=== PATIENT | male | born 1935 | race Caucasian/White ===

== ENCOUNTER → 2016-09-17 | Outpatient (CLI) | payer MEDICARE, OTHER ==
[2016-09-17 14:36] LABS: ALT 24 U/L (21-72); AST 27 U/L (17-59); Blood Urea Nitrogen 25 mg/dL (9-20); Non-African American GFR(MDRD) 55 (>60 ml/min/1.73 sqM)
== END ==
LOC: LABWHC1 13:48
PROVIDERS: ATTEND Podiatrist
DX: M10.9 Gout, unspecified (principal)
CPT/HCPCS: 36415; 82565; 84450; 84460; 84520; 84550

== ENCOUNTER 2016-10-03 21:01 | Emergency (ER) | payer MEDICARE, OTHER ==
[2016-10-03 21:24] VITALS: RESP 20
--- NOTE | 2016-10-03 21:39 | ED ---
Extremity Problem HPI - General Chief complaint: Extremity Problem,Nontraumatic Stated complaint: Leg Swollen/hx/congest heart failure Time Seen by Provider: 10/03/16 21:35 Source: patient Mode of arrival: wheelchair Limitations: no limitations - History of Present Illness Initial comments: This patient is a 81-year-old man who presents to be evaluated for left leg swelling that has been going on since Tuesday morning. He tells me that in contrast to the triage note this is mainly just the left leg. He did have an episode of bilateral leg swelling last September and was told that he had some congestive heart failure. The patient also notes that he has gained around 7 pounds over the course the past few days. He is denying other symptoms, including no real leg pain. No dyspnea or cough. No chest pain. Patient denies fever or chills, change in bowel movements or urination. MD Complaint: extremity swelling Onset/Timin -: days(s) Location: left, lower extremity History of Same: Yes Consistency: constant Improves with: nothing Worsens with: nothing - Related Data Home Medications Medication Instructions Recorded Confirmed Omeprazole [PriLOSEC] 20 mg PO AC-BRKFST 06/11/14 10/03/16 Simvastatin [Zocor] 40 mg PO HS 06/11/14 10/03/16 Aspirin EC [Ecotrin Low Dose] 81 mg PO DAILY 10/12/15 10/03/16 Cholecalciferol [Vitamin D3] 400 unit PO DAILY 10/12/15 10/03/16 Dulaglutide [Trulicity] 0.75 mg SQ WEEKLY 10/12/15 10/03/16 Hydrocodone/Acetaminophen [[place]one [place] 1 tab PO Q8H PRN 10/12/15 10/03/16 7.5-325] Insulin Degludec [Tresiba 30 unit SQ DAILY 10/12/15 10/03/16 Flextouch U-100] Allopurinol 300 mg PO DAILY 10/13/15 10/03/16 Levothyroxine Sodium [Synthroid] 50 mcg PO DAILY 10/13/15 10/03/16 Previous Rx's Medication Instructions Recorded Furosemide [Lasix] 40 mg PO DAILY #30 tab 10/15/15 Ipratropium-Albuterol Nebulize 3 ml INHALATION RT-QID #120 10/15/15 [Duoneb 0.5 mg-3 mg/3 ml Soln] ampul.neb Metoprolol Tartrate [Lopressor] 50 mg PO DAILY #30 tab 10/15/15 Allergies Allergy/AdvReac Type Severity Reaction Status Date / Time No Known Allergies Allergy Verified 10/03/16 21:24 Review of Systems ROS Statement: Those systems with pertinent positive or pertinent negative responses have been documented in the HPI. ROS Other: All systems not noted in ROS Statement are negative. Constitutional: Denies: fever, chills, weakness Respiratory: Denies: cough, dyspnea Cardiovascular: Reports: edema. Denies: chest pain, palpitations, orthopnea, syncope Gastrointestinal: Denies: abdominal pain, nausea, vomiting, diarrhea, melena, hematochezia Genitourinary: Denies: dysuria, hematuria Skin: Denies: rash Neurological: Denies: headache, weakness, numbness Past Medical History Past Medical History: Diabetes Mellitus, GERD/Reflux, Hyperlipidemia, Hypertension, Myocardial Infarction (VT) Additional Past Medical History / Comment(s): NEUROPATHY FEET, [place] 2015 Last Myocardial Infarction Date:: 1980 History of Any Multi-Drug Resistant Organisms: None Reported Past Surgical History: No Surgical Hx Reported Additional Past Surgical History / Comment(s): EGD, COLONOSCOPY Past Anesthesia/Blood Transfusion Reactions: No Reported Reaction Past Psychological History: No Psychological Hx Reported Smoking Status: Former smoker Past Alcohol Use History: None Reported Past Drug Use History: None Reported - Past Family History Father Family Medical History: No Reported History, Unable to Obtain Mother Family Medical History: No Reported History, Unable to Obtain General Exam Limitations: no limitations General appearance: alert, in no apparent distress Head exam: Present: atraumatic Eye exam: Present: normal appearance. Absent: scleral icterus, conjunctival injection ENT exam: Present: normal oropharynx Neck exam: Present: normal inspection Respiratory exam: Present: normal lung sounds bilaterally, rales (Few crackles at the bases bilaterally). Absent: respiratory distress, wheezes, rhonchi, stridor, accessory muscle use, decreased breath sounds, prolonged expiratory Cardiovascular Exam: Present: regular rate, normal rhythm, normal heart sounds. Absent: systolic murmur, diastolic murmur, rubs, gallop GI/Abdominal exam: Present: soft. Absent: distended, tenderness, guarding, rebound, mass Extremities exam: Present: normal inspection, normal capillary refill. Absent: pedal edema, calf tenderness Back exam: Present: normal inspection. Absent: CVA tenderness (R), CVA tenderness (L) Neurological exam: Present: alert Skin exam: Present: warm, dry, intact, normal color. Absent: rash Course Vital Signs 10/03/16 10/03/16 21:19 22:03 Temperature 99.4 F Pulse Rate 72 69 Respiratory 20 20 Rate Blood Pressure 144/65 133/69 O2 Sat by Pulse 93 L 96 Oximetry Medical Decision Making - Lab Data Result diagrams: 10/03/16 21:30 10/03/16 21:30 Lab Results 10/03/16 10/03/16 10/03/16 Range/Units 21:30 21:30 21:30 WBC 7.9 (3.8-10.6) k/uL RBC 5.14 (4.30-5.90) m/uL Hgb 15.2 (13.0-17.5) gm/dL Hct 46.2 (39.0-53.0) % MCV 90.0 (80.0-100.0) fL MCH 29.5 (25.0-35.0) pg MCHC 32.8 (31.0-37.0) g/dL RDW 16.0 H (11.5-15.5) % Plt Count 182 (150-450) k/uL Neutrophils % 65 % Lymphocytes % 22 % Monocytes % 6 % Eosinophils % 4 % Basophils % 1 % Neutrophils # 5.1 (1.3-7.7) k/uL Lymphocytes # 1.8 (1.0-4.8) k/uL Monocytes # 0.5 (0-1.0) k/uL Eosinophils # 0.3 (0-0.7) k/uL Basophils # 0.1 (0-0.2) k/uL D-Dimer 0.34 (<0.60) mg/L FEU Sodium 138 (137-145) mmol/L Potassium 4.5 (3.5-5.1) mmol/L Chloride 99 (98-107) mmol/L Carbon Dioxide 24 (22-30) mmol/L Anion Gap 15 mmol/L BUN 32 H (9-20) mg/dL Creatinine 1.30 H (0.66-1.25) mg/dL Est GFR (MDRD) Af Amer >60 (>60 ml/min/1.73 sqM) Est GFR (MDRD) Non-Af 53 (>60 ml/min/1.73 sqM) Glucose 257 H (74-99) mg/dL Calcium 9.4 (8.4-10.2) mg/dL Total Bilirubin 0.8 (0.2-1.3) mg/dL AST 35 (17-59) U/L ALT 30 (21-72) U/L Alkaline Phosphatase 102 (38-126) U/L Troponin I (0.000-0.034) ng/mL NT-Pro-B Natriuret Pep pg/mL Total Protein 7.7 (6.3-8.2) g/dL Albumin 3.9 (3.5-5.0) g/dL 10/03/16 10/03/16 Range/Units 21:30 21:30 WBC (3.8-10.6) k/uL RBC (4.30-5.90) m/uL Hgb (13.0-17.5) gm/dL Hct (39.0-53.0) % MCV (80.0-100.0) fL MCH (25.0-35.0) pg MCHC (31.0-37.0) g/dL RDW (11.5-15.5) % Plt Count (150-450) k/uL Neutrophils % % Lymphocytes % % Monocytes % % Eosinophils % % Basophils % % Neutrophils # (1.3-7.7) k/uL Lymphocytes # (1.0-4.8) k/uL Monocytes # (0-1.0) k/uL Eosinophils # (0-0.7) k/uL Basophils # (0-0.2) k/uL D-Dimer (<0.60) mg/L FEU Sodium (137-145) mmol/L Potassium (3.5-5.1) mmol/L Chloride (98-107) mmol/L Carbon Dioxide (22-30) mmol/L Anion Gap mmol/L BUN (9-20) mg/dL Creatinine (0.66-1.25) mg/dL Est GFR (MDRD) Af Amer (>60 ml/min/1.73 sqM) Est GFR (MDRD) Non-Af (>60 ml/min/1.73 sqM) Glucose (74-99) mg/dL Calcium (8.4-10.2) mg/dL Total Bilirubin (0.2-1.3) mg/dL AST (17-59) U/L ALT (21-72) U/L Alkaline Phosphatase (38-126) U/L Troponin I <0.012 (0.000-0.034) ng/mL NT-Pro-B Natriuret Pep 142 pg/mL Total Protein (6.3-8.2) g/dL Albumin (3.5-5.0) g/dL - EKG Data -: EKG Interpreted by Pa EKG shows normal: sinus rhythm (With PVC. Rate 73 bpm), axis (Normal), intervals (Normal), QRS complexes (Low voltage QRS complex), ST-T waves Rate: normal Interpretation: other (Possible old inferior infarct) Disposition Clinical Impression: Diabetes, Edema Disposition: HOME SELF-CARE Condition: Fair Instructions: Edema (ED) Additional Instructions: As we discussed, follow with your physician to ensure that the symptoms are improving. If you are worsening in anyway or if new symptoms develop return to the emergency room for reevaluation. Increase your furosemide to twice per day for the next 4 days. Referrals: Miguel Parra MD [Primary Care Provider] - 1-2 days
--- NOTE | 2016-10-03 21:58 | XR ---
EXAMINATION TYPE: XR chest 1V portable DATE OF EXAM: 10/03/2016 9:55 PM COMPARISON: 10/13/2015 INDICATION: Dyspnea TECHNIQUE: Single frontal view of the chest is obtained. FINDINGS: The heart size is normal. The pulmonary vasculature is normal. Mild left basilar infiltrate is present. Correlate for atelectasis. IMPRESSION: 1. Mild plate atelectasis left base.
[2016-10-03 21:59] LABS: Basophils # (A) 0.1 k/uL (0-0.2); Basophils % (A) 1 %; CH 29.5; CHCM 32.9; Eosinophils # (A) 0.3 k/uL (0-0.7); Eosinophils % (A) 4 %; HCT 46.2 % (39.0-53.0); HDW 2.83; HGB 15.2 gm/dL (13.0-17.5); Luc # (Auto) 0.16; Luc % (Auto) 2; Lymphocytes # (A) 1.8 k/uL (1.0-4.8); Lymphocytes % (A) 22 %; MCH 29.5 pg (25.0-35.0); MCHC 32.8 g/dL (31.0-37.0); Mean Platelet Volume 8.5; Monocytes # (A) 0.5 k/uL (0-1.0); Monocytes % (A) 6 %; Neutrophils # (A) 5.1 k/uL (1.3-7.7); Neutrophils % (A) 65 %; RBC 5.14 m/uL (4.30-5.90); WBC 7.9 k/uL (3.8-10.6)
[2016-10-03 22:13] LABS: Anion Gap 15 mmol/L; Calcium 9.4 mg/dL (8.4-10.2); Carbon Dioxide 24 mmol/L (22-30); Chloride 99 mmol/L (98-107); Glucose 257 mg/dL (74-99); Non-African American GFR(MDRD) 53 (>60 ml/min/1.73 sqM); Sodium 138 mmol/L (137-145); Total Bilirubin 0.8 mg/dL (0.2-1.3); Total Protein 7.7 g/dL (6.3-8.2)
[2016-10-03 22:20] LABS: Potassium 4.5 mmol/L (3.5-5.1)
[2016-10-03 22:21] LABS: ALT 30 U/L (21-72); AST 35 U/L (17-59); Alkaline Phosphatase 102 U/L (38-126); Blood Urea Nitrogen 32 mg/dL (9-20)
--- NOTE | 2016-10-03 22:38 | US ---
EXAM: US Duplex Left Lower Extremity Veins. CLINICAL HISTORY: R/O DVT. CHF, Left Leg swelling, no known prior DVT TECHNIQUE: The lower extremity deep venous system is examined utilizing real time linear array sonography with graded compression, Doppler sonography and color-flow sonography. Vessels imaged: External Iliac Vein (EIV), Common Femoral Vein, Deep Femoral Vein, Greater Saphenous Vein *, Femoral Vein, Popliteal Vein, Small Saphenous Vein *,Proximal Calf Veins, (* superficial vessels). COMPARISON: NONE FINDINGS: Deep veins: Unremarkable. Normal compression is demonstrated from the common femoral to the popliteal vein. There is normal response to augmentation. Superficial veins: Unremarkable as visualized. Soft tissues: No acute findings. IMPRESSION: Negative for left lower extremity DVT. Grayscale, color Doppler, spectral Doppler imaging performed of the deep veins of the lower extremities. There is normal flow, compressibility, vascular waveforms bilaterally.
[2016-10-03] MEDS ORDERED: INSULIN REGULAR 100 UNIT/ML VIAL SQ STA (23:06)
[2016-10-03 23:20] VITALS: BP 145/56; PULSE 76
[2016-10-03 23:35] VITALS: TEMP 98.1
== END 2016-10-03 23:35 | disposition home or self-care (01) ==
LOC: EC 21:01
DX: R60.0 Localized edema (principal); E11.9 Type 2 diabetes mellitus without complications; K21.9 Gastro-esophageal reflux disease without esophagitis; E78.5 Hyperlipidemia, unspecified; I10 Essential (primary) hypertension; I25.2 Old myocardial infarction; Z87.891 Personal history of nicotine dependence; Z79.82 Long term (current) use of aspirin; Z79.899 Other long term (current) drug therapy; Z79.4 Long term (current) use of insulin
CPT/HCPCS: 36415; 71010; 80053; 83880; 84484; 85025; 85379; 93005; 99284

== ENCOUNTER → 2016-10-22 | Outpatient (CLI) | payer MEDICARE, OTHER ==
[2016-10-22 15:24] LABS: ALT 22 U/L (21-72); AST 33 U/L (17-59); Blood Urea Nitrogen 26 mg/dL (9-20); Non-African American GFR(MDRD) 56 (>60 ml/min/1.73 sqM); Uric Acid 7.7 mg/dL (3.5-8.5)
== END | disposition home or self-care (01) ==
LOC: LABWHC1 14:49
PROVIDERS: ATTEND Podiatrist
DX: M10.9 Gout, unspecified (principal)
CPT/HCPCS: 36415; 82565; 84450; 84460; 84520; 84550

== ENCOUNTER → 2017-06-17 | Outpatient (CLI) | payer MEDICARE, OTHER ==
[2017-06-18 15:04] LABS: Uric Acid 9.6 mg/dL (3.5-8.5)
== END | disposition home or self-care (01) ==
LOC: LABWHC1 10:57
PROVIDERS: ATTEND Podiatrist
DX: M10.9 Gout, unspecified (principal)
CPT/HCPCS: 36415; 82565; 84450; 84460; 84520; 84550

== ENCOUNTER → 2017-08-12 | Outpatient (CLI) | payer MEDICARE, OTHER ==
--- NOTE | 2017-08-13 21:42 | XR ---
EXAMINATION TYPE: XR lumbar spine 2 or 3V DATE OF EXAM: 08/12/2017 COMPARISON: NONE HISTORY: 81-year-old male with radiculopathy, lower extremity pain TECHNIQUE: 3 views FINDINGS: Degenerated levoconvex curvature lumbar spine. Hypertrophic facet arthropathy mid to lower lumbar spi ne. There is grade 1 retrolisthesis at both L2-L3 and L3-L4. Vertebral body heights are preserved. Mi ld endplate spondylosis throughout. Mild aneurysm of upper abdominal aorta at 3.0 cm. There is fusiform aneurysm of the infrarenal abdomi nal aorta at 3.8 cm. Dense prostatic calcifications are present throughout. IMPRESSION: 1. Degenerated levoconvex scoliosis. 2. No vertebral compression collapse. 3. Hypertrophic facet arthropathy mid to lower lumbar spine with grade 1 retrolisthesis at both L2-L3 and L3-L4. 4. Mild degenerative disc disease throughout. 5. Note aneurysmal abdominal aorta with the greatest fusiform dilatation along the infrarenal segment at 3.8 cm.
== END | disposition home or self-care (01) ==
LOC: RADXRMAIN 16:03
PROVIDERS: ATTEND Podiatrist
DX: M51.16 Intervertebral disc disorders with radiculopathy, lumbar region (principal); M46.96 Unspecified inflammatory spondylopathy, lumbar region; M41.86 Other forms of scoliosis, lumbar region; M43.16 Spondylolisthesis, lumbar region
CPT/HCPCS: 72100

== ENCOUNTER 2017-08-15 07:47 | Day surgery (SDC) | payer MEDICARE, OTHER ==
[~2017-08-15 07:47] MED LIST: ALPRAZolam 0.25 MG TAB PO PRN; ASPIRIN 325 MG TAB PO STA; NITROGLYCERIN SL TABS 0.4 MG TAB SUBLINGUAL PRN; SODIUM CHLORIDE 0.9% 1,000 ML in EMPTY BAG 1 BAG IV ONE
[2017-08-15 08:47] LABS: Glucose,Whole Blood 152 mg/dL (75-99)
[2017-08-15 08:47] LABS: Basophils # (A) 0.1 k/uL (0-0.2); Basophils % (A) 1 %; Eosinophils # (A) 0.2 k/uL (0-0.7); Eosinophils % (A) 3 %; HCT 47.2 % (39.0-53.0); HGB 15.2 gm/dL (13.0-17.5); Lymphocytes # (A) 1.5 k/uL (1.0-4.8); Lymphocytes % (A) 22 %; MCH 28.6 pg (25.0-35.0); MCHC 32.2 g/dL (31.0-37.0); MCV 88.7 fL (80.0-100.0); Mean Platelet Volume 7.5; Monocytes # (A) 0.3 k/uL (0-1.0); Monocytes % (A) 5 %; Neutrophils # (A) 4.8 k/uL (1.3-7.7); Neutrophils % (A) 68 %; Platelet Count 228 k/uL (150-450); RBC 5.32 m/uL (4.30-5.90); RDW 15.4 % (11.5-15.5)
[2017-08-15] MEDS ORDERED: MIDAZOLAM 2 MG/2 ML VIAL IV ONE (13:05)
[2017-08-15] MEDS ORDERED: fentaNYL (PF) 50 MCG/ML 2 ML AMP IV ONE (13:05)
[2017-08-15] MEDS ORDERED: LIDOCAINE 2% INJ 20 MG/ML SQ ONE (13:11)
[2017-08-15] MEDS ORDERED: RX INFO: IV CONTRAST WAS GIVEN 1 EACH MISC MISCELLANE PRN (13:36)
[2017-08-15] MEDS ORDERED: ISOSORBIDE MONONITRATE ER 15 MG TAB PO STA (13:45)
[2017-08-15] MEDS ORDERED: SODIUM CHLORIDE 0.9% 1,000 ML IV SCH (13:45)
--- NOTE | 2017-08-15 13:45 | P.PCN ---
Date of Procedure: 08/15/17 Preoperative Diagnosis: Positive stress test, hypertension, hyperglycemia and diabetes Postoperative Diagnosis: Significant disease involving the mid circumflex Procedure(s) Performed: Left heart catheterization without left ventriculography Description of Procedure: HISTORY: This is a 81-year-old gentleman with history of hypertension, hypercholesterolemia, diabetes mellitus and diastolic congestive heart failure who recently had a stress test which showed ischemia involving the apex and lateral wall. Patient is advised to have a cardiac catheter placed for definite diagnosis. Patient and family were explained the risks and benefits of the procedure. CONSENT:I have discussed the risks, benefits and alternative therapies for the above-mentioned procedure and for both sedation/analgesia as well as necessary blood product administration, if indicated, as they pertain to this patient. The patient has indicated understanding and acceptance of the risks and procedures discussed. PROCEDURE: Patient was brought to the lab in a fasting state. Patient was given some IV sedation. The right groin is infiltrated with lidocaine and right femoral artery was entered using Seldinger technique. A 6-Belizean catheter was left in place and selective coronary arteriography was performed. Patient tolerated the procedure well.. No immediate complications were noted and patient was transferred to [facility] in a stable condition: Manual compression was applied for hemostasis. Conscious Sedation: Versed 1mg Fentanyl 25 g Duration 20minutes HEMODYNAMICS: The aortic pressure is 138/78. Left ventricular end-diastolic pressure is 6-10. There was no gradient across the aortic valve SELECTIVE CORONARY ARTERIOGRAPHY: LEFT MAIN: Normal length and patent THE LEFT ANTERIOR DESCENDING CORONARY ARTERY:. This is a fair in caliber with mild calcification in the proximal portion. The LAD and its branches are free of occlusive disease THE LEFT CIRCUMFLEX AND IS CORONARY ARTERY: This is a dominant vessel giving rise to good-sized OM branch. The proximal circumflex has mild to moderate disease with about 30-40% lesion. The mid circumflex before the OM branch has a tight stenosis with with about 80% stenosis THE RIGHT CORONARY ARTERY: Small and nondominant. Mild disease in the proximal portion LEFT VENTRICULOGRAPHY: Not done FINAL IMPRESSION:. Significant lesion involving the mid circumflex and mild to moderate disease in the proximal circumflex. Mild disease in the proximal RCA PLAN:. Patient has received significant of contrast. We will right atrium and the possibility proceed with stent placement of the circumflex marginal tomorrow PROGNOSIS:. Fair
[2017-08-15] MEDS ORDERED: IODIXANOL 320 MG/ML 100 ML INTRAARTER ONE (13:47)
[2017-08-15] MEDS ORDERED: IPRATROPIUM-ALBUTEROL 3 ML NEB INHALATION PRN (13:49)
[2017-08-15] MEDS: ATORVASTATIN 20 MG TAB PO SCH (21:29)
[2017-08-15] MEDS: ALPRAZolam 0.5 MG TAB PO PRN (21:29)
[2017-08-16] MEDS: HYDROcodone/APAP 7.5-325MG 1 EACH TAB PO PRN ×2 (03:35→13:41)
[2017-08-16 06:20] LABS: Glucose,Whole Blood 199 mg/dL (75-99)
[2017-08-16 06:58] LABS: Calcium 9.2 mg/dL (8.4-10.2); Potassium 4.4 mmol/L (3.5-5.1)
[2017-08-16] MEDS: LEVOTHYROXINE 50 MCG TAB PO SCH (07:20)
[2017-08-16] MEDS: ALLOPURINOL 300 MG TAB PO SCH (07:21)
[2017-08-16] MEDS: PANTOPRAZOLE 40 MG TABLET PO SCH (07:21)
[2017-08-16] MEDS: CHOLECALCIFEROL 400 UNIT TAB PO SCH (07:21)
[2017-08-16] MEDS ORDERED: [UNRECOGNIZED DRUG - OTHER] PO SCH (09:00)
[2017-08-16] MEDS ORDERED: FUROSEMIDE 40 MG TAB PO SCH (09:00)
[2017-08-16] MEDS ORDERED: ASPIRIN 81 MG PO SCH (09:00)
[2017-08-16] MEDS ORDERED: VERAPAMIL 2.5 MG/ML 2 ML AMP ONE (09:16)
[2017-08-16] MEDS ORDERED: LIDOCAINE 2% INJ 20 MG/ML (20 ML MDV) ONE (09:16)
[2017-08-16] MEDS ORDERED: MIDAZOLAM 2 MG/2 ML VIAL ONE (09:16)
[2017-08-16] MEDS ORDERED: MIDAZOLAM 2 MG/2 ML VIAL IVP ONE (10:25)
[2017-08-16] MEDS ORDERED: LIDOCAINE 2% INJ 20 MG/ML SQ ONE (10:33)
[2017-08-16] MEDS ORDERED: BIVALIRUDIN BOLUS 250 MG/50 ML IV ONE (10:35)
[2017-08-16] MEDS ORDERED: BIVALIRUDIN 250 MG in SODIUM CHLORIDE 0.9% 50 ML IV ONE (10:37)
[2017-08-16] MEDS ORDERED: IV FLUID CONTINUATION 1,000 ML IV ONE (10:37)
[2017-08-16] MEDS ORDERED: NITROGLYCERIN 1000MCG/10ML SYRINGE INTRACORON ONE (10:55)
[2017-08-16] MEDS ORDERED: CLOPIDOGREL 75 MG TAB ONE (11:00)
[2017-08-16] MEDS ORDERED: CLOPIDOGREL 75 MG TAB PO ONE (11:00)
[2017-08-16] MEDS ORDERED: IODIXANOL 320 MG/ML 100 ML INTRAARTER ONE (11:01)
[2017-08-16] MEDS ORDERED: MAG HYDROX/AL HYDROX/SIMETH 30 ML CUP PO PRN (11:14)
[2017-08-16] MEDS ORDERED: RX INFO: IV CONTRAST WAS GIVEN 1 EACH MISC MISCELLANE PRN (11:14)
[2017-08-16] MEDS ORDERED: ZOLPIDEM 5 MG TAB PO PRN (11:14)
[2017-08-16] MEDS ORDERED: ATROPINE SULFATE 0.1 MG/ML 10ML SYRINGE IV PRN (11:14)
[2017-08-16] MEDS ORDERED: NITROGLYCERIN SL TABS 0.4 MG TAB SUBLINGUAL PRN (11:14)
[2017-08-16] MEDS ORDERED: SODIUM CHLORIDE 0.9% 1,000 ML IV SCH (11:15)
[2017-08-16 11:49] LABS: Glucose,Whole Blood 165 mg/dL (75-99)
[2017-08-16] MEDS: INSULIN ASPART 100 UNIT/ML 1 ML 10 ML VIAL SQ SCH ×4 (12:05→20:51)
[2017-08-16] MEDS: INSULIN DETEMIR 100 UNIT/ML 10 ML VIAL SQ SCH (12:08)
--- NOTE | 2017-08-16 12:18 | LTR ---
August 15, 2017 Re: Miguel Grace Dear Dr. Parra: MrJuan Grace underwent a heart catheterization by Dr. Zamudio yesterday and that revealed severe disease involving the left circumflex coronary artery. He was brought today and underwent successful balloon angioplasty and stenting of the left circumflex with a good angiographic results and without any complication. Thank you for allowing us to participate in his care and please do not hesitate to call if you have any question or concern. Sincerely, Daniel Petty MD MMSAMUELL / IJN: [id number] /
[2017-08-16 14:52] LABS: Calcium 8.9 mg/dL (8.4-10.2); Potassium 3.8 mmol/L (3.5-5.1)
[2017-08-16 15:07] VITALS: BMI 38.5
[2017-08-16 16:47] LABS: Glucose,Whole Blood 147 mg/dL (75-99)
[2017-08-16 19:46] VITALS: RESP 18
[2017-08-16 20:44] LABS: Glucose,Whole Blood 125 mg/dL (75-99)
[2017-08-16] MEDS: ATORVASTATIN 20 MG TAB PO SCH (21:41)
[2017-08-16] MEDS: ALPRAZolam 0.5 MG TAB PO PRN (21:42)
[2017-08-17 06:19] LABS: Glucose,Whole Blood 155 mg/dL (75-99)
[2017-08-17] MEDS: LEVOTHYROXINE 50 MCG TAB PO SCH (06:51)
[2017-08-17] MEDS: PANTOPRAZOLE 40 MG TABLET PO SCH (06:51)
[2017-08-17] MEDS: INSULIN ASPART 100 UNIT/ML 1 ML 10 ML VIAL SQ SCH (06:54)
[2017-08-17] MEDS: ALLOPURINOL 300 MG TAB PO SCH (08:15)
[2017-08-17] MEDS: INSULIN DETEMIR 100 UNIT/ML 10 ML VIAL SQ SCH (08:15)
[2017-08-17] MEDS: CHOLECALCIFEROL 400 UNIT TAB PO SCH (08:15)
[2017-08-17] MEDS: HYDROcodone/APAP 7.5-325MG 1 EACH TAB PO PRN (08:15)
[2017-08-17] MEDS ORDERED: ASPIRIN 325 MG TAB PO SCH (09:00)
[2017-08-17] MEDS ORDERED: CLOPIDOGREL 75 MG TAB PO SCH (11:15)
--- NOTE | 2017-08-17 11:30 | P.DS ---
Providers Date of admission: 08/15/2017 Attending physician: Marielle Zamudio Consults: 08/16/17 11:14 Consult Physician Routine Consulting Provider: [facility] Reason/Comments: Post Interventional patient Do you want consulting provider notified?: Already Contacted Primary care physician: [facility] Course: This is a pleasant 81-year-old woman with history of hypertension, hyper- cholesterolemia, diabetes mellitus and diastolic congestive heart failure. He recently underwent stress test which showed ischemia involving the apex and lateral wall. He was then advised to undergo cardiac catheterization for definitive diagnosis. Cardiac catheterization revealed significant lesion involving the mid circumflex and mild to moderate disease in the proximal circumflex with mild disease in the proximal RCA. He subsequently underwent successful balloon angioplasty and stenting of the left circumflex with a good angiographic result and without any complication. He is doing well. Vital signs are stable. Lung sounds are clear. Heart sounds regular S1 and S2 without significant murmur and no gallop or extra sounds. Right femoral puncture site with ecchymosis, soft with no evidence of hematoma. Patient will be discharged home today in follow-up in the office with Dr. Zamudio in one week. Plan - Discharge Summary Discharge Rx Participant: Yes New Discharge Prescriptions: New Aspirin 325 mg PO DAILY tab Clopidogrel [Plavix] 75 mg PO DAILY #90 tab Nitroglycerin Sl Tabs [Nitrostat] 0.4 mg SUBLINGUAL Q5M PRN #25 tab PRN Reason: Chest Pain Continue Simvastatin [Zocor] 40 mg PO HS Omeprazole [PriLOSEC] 20 mg PO AC-BRKFST Hydrocodone/Acetaminophen [[place] 7.5-325] 1 tab PO Q8H PRN PRN Reason: Pain Insulin Degludec [Tresiba Flextouch U-100] 30 unit SQ QAM Cholecalciferol [Vitamin D3] 400 unit PO DAILY Levothyroxine Sodium [Synthroid] 50 mcg PO DAILY Allopurinol 300 mg PO DAILY Furosemide [Lasix] 40 mg PO DAILY #30 tab Ipratropium-Albuterol Nebulize [Duoneb 0.5 mg-3 mg/3 ml Soln] 3 ml INHALATION QID PRN PRN Reason: Shortness Of Breath Neuro B Vitamin 80 mg PO DAILY Discontinued Aspirin EC [Ecotrin Low Dose] 81 mg PO DAILY Discharge Medication List Omeprazole [PriLOSEC] 20 mg PO AC-BRKFST 06/11/14 [History] Simvastatin [Zocor] 40 mg PO HS 06/11/14 [History] Cholecalciferol [Vitamin D3] 400 unit PO DAILY 10/12/15 [History] Hydrocodone/Acetaminophen [[place] 7.5-325] 1 tab PO Q8H PRN 10/12/15 [History] Insulin Degludec [Tresiba Flextouch U-100] 30 unit SQ QAM 10/12/15 [History] Allopurinol 300 mg PO DAILY 10/13/15 [History] Levothyroxine Sodium [Synthroid] 50 mcg PO DAILY 10/13/15 [History] Furosemide [Lasix] 40 mg PO DAILY #30 tab 10/15/15 [Rx] Ipratropium-Albuterol Nebulize [Duoneb 0.5 mg-3 mg/3 ml Soln] 3 ml INHALATION QID PRN 08/10/17 [History] Neuro B Vitamin 80 mg PO DAILY 08/10/17 [History] Aspirin 325 mg PO DAILY tab 08/17/17 [Rx] Clopidogrel [Plavix] 75 mg PO DAILY #90 tab 08/17/17 [Rx] Nitroglycerin Sl Tabs [Nitrostat] 0.4 mg SUBLINGUAL Q5M PRN #25 tab 08/17/17 [Rx ] Follow up Appointment(s)/Referral(s): Marielle Zamudio MD [STAFF PHYSICIAN] - 08/25/17 3:30 pm Patient Instructions/Handouts: *Surgery [facility] - After Heart Catheterization - Sterile Products Processor Instructions, Heart Healthy Diet (DC), Coronary Intravascular Stent Placement (DC)
[2017-08-17 11:53] VITALS: BP 145/77; PULSE 94; TEMP 97.3
--- NOTE | 2017-08-18 21:23 | CONS ---
CONSULTATION DATE OF SERVICE: 08/15/2017 CHIEF COMPLAINT: Status post heart catheterization showing blockage in the mid to left circumflex. He has history of diabetes at home, diastolic heart failure, hypertension, dyslipidemia, obesity. Discussed with him, heart catheterization tomorrow to put the stent in his heart and possible discharge after that home. PAST MEDICAL HISTORY: Hypertension, diabetes mellitus, diastolic CHF, obesity. REVIEW OF SYSTEM: 30-point review of systems negative. Cardiovascular, S1-S2. Lungs clear. GI soft. Hematology negative Homans. Psych fair mood and affect. ASSESSMENT: 1. Coronary artery disease. Circumflex obstruction. Percutaneous transluminal coronary angiography will be done in the morning. 2. Hypertension. 3. Diabetes mellitus. Continue with Accu-Chek protocol and home medicines will be continued. MMODL / IJN: [id number] /
--- NOTE | 2017-09-09 11:01 | PTCA ---
PERCUTANEOUSTRANS CORORONARY ANGIOGRAPHY DATE OF SERVICE: 08/16/2017 PERFORMING PHYSICIAN: Daniel Petty MD, Meteorological Technician. PROCEDURE PERFORMED: Successful stenting of the mid left circumflex using 3.5 x 15 mm Xience drug-eluting stent with good angiographic results. INDICATION: This is a pleasant 81-year-old gentleman who sees Dr. Zamudio in the office as an outpatient who was experiencing chest discomfort and underwent myocardial perfusion imaging stress test and that revealed inferolateral ischemia. He underwent A heart catheterization by Dr. Zamudio yesterday and that revealed severe disease involving the mid left circumflex and intermediate disease involving the proximal left circumflex. In view of that, percutaneous coronary intervention was advised. APPROACH: Right common femoral artery. COMPLICATION: None. LEVEL OF SEDATION: Moderate with sedation length of 30 minutes. PROCEDURE DESCRIPTION: After obtaining an informed consent, the patient was brought to the Cardiac Rn Post Partum. The right common femoral artery was cannulated using micropuncture technique, the micropuncture wire passed easily, Then I placed a 6-Georgian sheath in the right common femoral artery subsequently. After that anticoagulation was initiated using Angiomax. After that, I did engage the left main using an XB 3.5 guide. The left circumflex was wired using a whisper wire. After that, I did PTCA ballooning using 3.0 mm balloon and subsequently I deployed 3.5 x 15 mm Xience drug-eluting stent where the stent was positioned under fluoroscopy guidance and deployed under 16 atmospheres for 30 seconds. The following angiogram showed good angiographic results. The procedure was completed without any complication. POSTPROCEDURE MANAGEMENT: 1. Dual anti-platelet therapy. 2. Risk factors modifications. 3. Follow up with the patient. MMODL / IJN: [id number] /
== END 2017-08-17 12:04 | disposition home or self-care (01) ==
LOC: CATHCVL 07:47 → 6SEL 13:45 → CATHCVL 08-17 12:04
PROVIDERS: ATTEND Internal Medicine Cardiovascular Disease
DX: I25.10 Atherosclerotic heart disease of native coronary artery without angina pectoris (principal); I25.84 Coronary atherosclerosis due to calcified coronary lesion; I11.0 Hypertensive heart disease with heart failure; I50.32 Chronic diastolic (congestive) heart failure; Z87.891 Personal history of nicotine dependence; E78.5 Hyperlipidemia, unspecified; Z82.49 Family history of ischemic heart disease and other diseases of the circulatory system; E11.9 Type 2 diabetes mellitus without complications; Z79.82 Long term (current) use of aspirin; Z79.899 Other long term (current) drug therapy
CPT/HCPCS: 93458; 80048; 82565; 85025; C9600; C1769 ×4; C1725; C1887; C1894 ×3; C1874; C1760; J2001 ×2; J2250 ×2; Q9967 ×2; J3010; J0583

== ENCOUNTER 2017-10-16 13:38 | Inpatient (IN) | payer MEDICARE, OTHER ==
[2017-10-16] MEDS ORDERED: SODIUM CHLORIDE 0.9% 1,000 ML IV STA (14:09)
[2017-10-16] MEDS ORDERED: PANTOPRAZOLE 40 MG/10 ML VIAL IVP STA (14:09)
--- NOTE | 2017-10-16 14:11 | ED ---
General Adult HPI - General Chief complaint: GI Bleed Stated complaint: Bloody stool Time Seen by Provider: 10/16/17 13:58 Source: patient, RN notes reviewed Mode of arrival: wheelchair Limitations: no limitations - History of Present Illness Initial comments: Patient is a pleasant 82-year-old male presenting to the emergency department with black stool. Onset was 2 days ago. Patient has had 3 episodes now. Patient states over the past week he has been more fatigued. Patient does admit to having some shortness of breath exertion. No history of similar symptoms previously. States there is some mild discomfort of his upper abdomen. - Related Data Home Medications Medication Instructions Recorded Confirmed Omeprazole [PriLOSEC] 20 mg PO AC-BRKFST 06/11/14 08/15/17 Simvastatin [Zocor] 40 mg PO HS 06/11/14 08/15/17 Cholecalciferol [Vitamin D3] 400 unit PO DAILY 10/12/15 08/15/17 Hydrocodone/Acetaminophen [[place] 1 tab PO Q8H PRN 10/12/15 08/15/17 7.5-325] Insulin Degludec [Tresiba 30 unit SQ QAM 10/12/15 08/15/17 Flextouch U-100] Allopurinol 300 mg PO DAILY 10/13/15 08/15/17 Levothyroxine Sodium [Synthroid] 50 mcg PO DAILY 10/13/15 08/15/17 Ipratropium-Albuterol Nebulize 3 ml INHALATION QID PRN 08/10/17 08/15/17 [Duoneb 0.5 mg-3 mg/3 ml Soln] Neuro B Vitamin 80 mg PO DAILY 08/10/17 08/15/17 Previous Rx's Medication Instructions Recorded Furosemide [Lasix] 40 mg PO DAILY #30 tab 10/15/15 Aspirin 325 mg PO DAILY tab 08/17/17 Clopidogrel [Plavix] 75 mg PO DAILY #90 tab 08/17/17 Nitroglycerin Sl Tabs [Nitrostat] 0.4 mg SUBLINGUAL Q5M PRN #25 tab 08/17/17 Allergies Allergy/AdvReac Type Severity Reaction Status Date / Time No Known Allergies Allergy Verified 10/16/17 13:53 Review of Systems ROS Statement: Those systems with pertinent positive or pertinent negative responses have been documented in the HPI. ROS Other: All systems not noted in ROS Statement are negative. Constitutional: Denies: fever Eyes: Denies: eye pain ENT: Denies: ear pain Respiratory: Reports: dyspnea (With exertion). Denies: cough Cardiovascular: Denies: chest pain Endocrine: Reports: fatigue Gastrointestinal: Reports: abdominal pain, melena. Denies: nausea, vomiting Genitourinary: Denies: dysuria Musculoskeletal: Denies: back pain Skin: Denies: rash Neurological: Denies: headache Past Medical History Past Medical History: COPD, Diabetes Mellitus, GERD/Reflux, Myocardial Infarction ([place]) Additional Past Medical History / Comment(s): SEE DR WAY'S H&P, NEUROPATHY FEET, [place] Last Myocardial Infarction Date:: 2015 History of Any Multi-Drug Resistant Organisms: None Reported Past Surgical History: Heart Catheterization, Tonsillectomy Additional Past Surgical History / Comment(s): EGD, COLONOSCOPY Past Anesthesia/Blood Transfusion Reactions: No Reported Reaction Past Psychological History: No Psychological Hx Reported Smoking Status: Former smoker Past Alcohol Use History: None Reported Past Drug Use History: None Reported - Past Family History Father Family Medical History: Cancer Mother Family Medical History: No Reported History General Exam Limitations: no limitations General appearance: alert, in no apparent distress Head exam: Present: atraumatic Eye exam: Present: normal appearance, PERRL ENT exam: Present: normal oropharynx Neck exam: Present: normal inspection Respiratory exam: Present: normal lung sounds bilaterally Cardiovascular Exam: Present: regular rate, normal rhythm GI/Abdominal exam: Present: soft. Absent: distended, tenderness, guarding, rebound, pulsatile mass Rectal exam: Present: black stool Extremities exam: Present: normal inspection Neurological exam: Present: alert Psychiatric exam: Present: normal affect, normal mood Skin exam: Present: normal color Course Vital Signs 10/16/17 10/16/17 13:52 14:24 Temperature 97.0 F L Pulse Rate 65 60 Respiratory 16 22 Rate Blood Pressure 100/50 107/68 O2 Sat by Pulse 93 L 92 L Oximetry Medical Decision Making - Medical Decision Making Patient reevaluated and resting comfortably in bed. Patient family updated on results and plan. Case was discussed in detail with Dr. Parra, who will admit his patient with Dr. Johnson to consult. - Lab Data Result diagrams: 10/16/17 14:40 10/16/17 14:40 Lab Results 10/16/17 10/16/17 10/16/17 Range/Units 14:40 14:40 14:40 WBC 7.1 (3.8-10.6) k/uL RBC 4.67 (4.30-5.90) m/uL Hgb 13.8 (13.0-17.5) gm/dL Hct 41.0 (39.0-53.0) % MCV 87.7 (80.0-100.0) fL MCH 29.5 (25.0-35.0) pg MCHC 33.7 (31.0-37.0) g/dL RDW 17.0 H (11.5-15.5) % Plt Count 230 (150-450) k/uL Neutrophils % 71 % Lymphocytes % 18 % Monocytes % 5 % Eosinophils % 3 % Basophils % 1 % Neutrophils # 5.0 (1.3-7.7) k/uL Lymphocytes # 1.3 (1.0-4.8) k/uL Monocytes # 0.4 (0-1.0) k/uL Eosinophils # 0.2 (0-0.7) k/uL Basophils # 0.1 (0-0.2) k/uL Anisocytosis Slight PT 10.0 (9.0-12.0) sec INR 1.0 (<1.2) APTT 23.8 (22.0-30.0) sec Sodium 139 (137-145) mmol/L Potassium 4.0 (3.5-5.1) mmol/L Chloride 98 (98-107) mmol/L Carbon Dioxide 25 (22-30) mmol/L Anion Gap 16 mmol/L BUN 44 H (9-20) mg/dL Creatinine 1.53 H (0.66-1.25) mg/dL Est GFR (CKD-EPI)AfAm 49 (>60 ml/min/1.73 sqM) Est GFR (CKD-EPI)NonAf 42 (>60 ml/min/1.73 sqM) Glucose 189 H (74-99) mg/dL Calcium 9.0 (8.4-10.2) mg/dL Total Bilirubin 0.6 (0.2-1.3) mg/dL AST 42 (17-59) U/L ALT 29 (21-72) U/L Alkaline Phosphatase 102 (38-126) U/L Total Protein 7.4 (6.3-8.2) g/dL Albumin 3.8 (3.5-5.0) g/dL Stool Occult Blood (Negative) 10/16/17 Range/Units 14:43 WBC (3.8-10.6) k/uL RBC (4.30-5.90) m/uL Hgb (13.0-17.5) gm/dL Hct (39.0-53.0) % MCV (80.0-100.0) fL MCH (25.0-35.0) pg MCHC (31.0-37.0) g/dL RDW (11.5-15.5) % Plt Count (150-450) k/uL Neutrophils % % Lymphocytes % % Monocytes % % Eosinophils % % Basophils % % Neutrophils # (1.3-7.7) k/uL Lymphocytes # (1.0-4.8) k/uL Monocytes # (0-1.0) k/uL Eosinophils # (0-0.7) k/uL Basophils # (0-0.2) k/uL Anisocytosis PT (9.0-12.0) sec INR (<1.2) APTT (22.0-30.0) sec Sodium (137-145) mmol/L Potassium (3.5-5.1) mmol/L Chloride (98-107) mmol/L Carbon Dioxide (22-30) mmol/L Anion Gap mmol/L BUN (9-20) mg/dL Creatinine (0.66-1.25) mg/dL Est GFR (CKD-EPI)AfAm (>60 ml/min/1.73 sqM) Est GFR (CKD-EPI)NonAf (>60 ml/min/1.73 sqM) Glucose (74-99) mg/dL Calcium (8.4-10.2) mg/dL Total Bilirubin (0.2-1.3) mg/dL AST (17-59) U/L ALT (21-72) U/L Alkaline Phosphatase (38-126) U/L Total Protein (6.3-8.2) g/dL Albumin (3.5-5.0) g/dL Stool Occult Blood Positive (Negative) - Radiology Data Radiology results: image reviewed (Abdominal x-ray reveals no acute abnormality) Disposition Clinical Impression: GI hemorrhage Disposition: ADMITTED IP TO THIS HOSP Is patient prescribed a controlled substance at d/c from ED?: No Referrals: Miguel Parra MD [Primary Care Provider] - 1-2 days Decision Time: 15:20
[2017-10-16 15:02] LABS: Anisocytosis Slight; Basophils # (A) 0.1 k/uL (0-0.2); Basophils % (A) 1 %; Eosinophils # (A) 0.2 k/uL (0-0.7); Eosinophils % (A) 3 %; HGB 13.8 gm/dL (13.0-17.5); Lymphocytes # (A) 1.3 k/uL (1.0-4.8); Lymphocytes % (A) 18 %; MCH 29.5 pg (25.0-35.0); MCHC 33.7 g/dL (31.0-37.0); MCV 87.7 fL (80.0-100.0); Mean Platelet Volume 7.6; Monocytes # (A) 0.4 k/uL (0-1.0); Monocytes % (A) 5 %; Neutrophils % (A) 71 %; Platelet Count 230 k/uL (150-450); RBC 4.67 m/uL (4.30-5.90); WBC 7.1 k/uL (3.8-10.6)
--- NOTE | 2017-10-16 15:02 | XR ---
EXAMINATION TYPE: XR abdomen 1V DATE OF EXAM: 10/16/2017 COMPARISON: 07/12/2011 HISTORY: Pain TECHNIQUE: Single supine KUB image of the abdomen is obtained FINDINGS: Small bowel demonstrates no evidence for dilatation or air fluid levels. Gas and fecal material is seen in non-distended colon. No convincing evidence for pneumoperitoneum. No unusual calcifications. The lung bases are clear. The osseous structures are intact. IMPRESSION: 1. Overall nonobstructive bowel gas pattern.
[2017-10-16 15:08] LABS: Albumin 3.8 g/dL (3.5-5.0); Total Bilirubin 0.6 mg/dL (0.2-1.3); Total Protein 7.4 g/dL (6.3-8.2)
[2017-10-16 15:14] LABS: Partial Thromboplastin Time 23.8 sec (22.0-30.0)
[2017-10-16] MEDS ORDERED: NALOXONE 0.4 MG/ML 1 ML VIAL IV PRN (15:20)
[2017-10-16 15:29] LABS: Creatine Kinase 44 U/L (55-170)
[2017-10-16] MEDS: PANTOPRAZOLE 40 MG/10 ML VIAL IV SCH (15:41)
[2017-10-16 15:42] LABS: Creatine Kinase MB 0.6 ng/mL (0.0-2.4); Troponin I <0.012 ng/mL (0.000-0.034)
[2017-10-16 16:41] VITALS: BMI 33.7
[2017-10-16] MEDS: SODIUM CHLORIDE 0.9% 1,000 ML IV SCH (16:54)
[2017-10-16] MEDS ORDERED: IPRATROPIUM-ALBUTEROL 3 ML NEB INHALATION PRN (17:07)
[2017-10-16 17:29] LABS: Glucose,Whole Blood 149 mg/dL (75-99)
[2017-10-16] MEDS: glipiZIDE 10 MG TAB PO SCH (17:53)
[2017-10-16] MEDS: INSULIN ASPART 100 UNIT/ML 1 ML 10 ML VIAL SQ SCH (17:53)
[2017-10-16] MEDS: IPRATROPIUM-ALBUTEROL 3 ML NEB INHALATION SCH (20:21)
[2017-10-16 20:30] LABS: Glucose,Whole Blood 233 mg/dL (75-99)
[2017-10-16 21:58] LABS: Anisocytosis Slight; Basophils % (A) 0 %; Eosinophils # (A) 0.3 k/uL (0-0.7); Eosinophils % (A) 4 %; HCT 39.1 % (39.0-53.0); HGB 12.7 gm/dL (13.0-17.5); Lymphocytes # (A) 1.9 k/uL (1.0-4.8); Lymphocytes % (A) 24 %; MCH 28.9 pg (25.0-35.0); MCHC 32.4 g/dL (31.0-37.0); MCV 88.9 fL (80.0-100.0); Mean Platelet Volume 7.9; Monocytes # (A) 0.4 k/uL (0-1.0); Monocytes % (A) 5 %; Neutrophils # (A) 5.2 k/uL (1.3-7.7); Neutrophils % (A) 66 %; Platelet Count 213 k/uL (150-450); RBC 4.39 m/uL (4.30-5.90); RDW 16.6 % (11.5-15.5); WBC 7.9 k/uL (3.8-10.6)
[2017-10-16] MEDS: ATORVASTATIN 20 MG TAB PO SCH (22:00)
[2017-10-16] MEDS: REPAGLINIDE 1 MG TAB PO SCH (22:00)
[2017-10-16] MEDS: FUROSEMIDE 40 MG TAB PO SCH (22:00)
[2017-10-16] MEDS: GABAPENTIN 300 MG CAP PO SCH (22:00)
[2017-10-17] MEDS: HYDROcodone/APAP 7.5-325MG 1 EACH TAB PO PRN ×2 (00:05→09:29)
[2017-10-17] MEDS: SODIUM CHLORIDE 0.9% 1,000 ML IV SCH ×4 (02:23→23:25)
[2017-10-17 07:04] LABS: Glucose,Whole Blood 313 mg/dL (75-99)
[2017-10-17] MEDS: INSULIN DETEMIR 100 UNIT/ML 10 ML VIAL SQ SCH (07:19)
[2017-10-17 07:28] LABS: Anisocytosis Slight; Basophils % (A) 1 %; Eosinophils # (A) 0.2 k/uL (0-0.7); Eosinophils % (A) 3 %; HCT 39.8 % (39.0-53.0); HGB 13.3 gm/dL (13.0-17.5); Lymphocytes % (A) 15 %; MCH 30.1 pg (25.0-35.0); MCHC 33.5 g/dL (31.0-37.0); MCV 89.9 fL (80.0-100.0); Mean Platelet Volume 7.9; Monocytes # (A) 0.3 k/uL (0-1.0); Monocytes % (A) 5 %; Neutrophils % (A) 74 %; Platelet Count 195 k/uL (150-450); RBC 4.42 m/uL (4.30-5.90); RDW 16.7 % (11.5-15.5); WBC 6.7 k/uL (3.8-10.6)
[2017-10-17] MEDS: IPRATROPIUM-ALBUTEROL 3 ML NEB INHALATION SCH ×4 (07:33→18:52)
[2017-10-17] MEDS: FUROSEMIDE 40 MG TAB PO SCH ×2 (08:51→20:14)
[2017-10-17] MEDS: METOPROLOL TARTRATE 50 MG TAB PO SCH (08:51)
[2017-10-17] MEDS: REPAGLINIDE 1 MG TAB PO SCH ×3 (08:52→21:43)
[2017-10-17] MEDS: COLCHICINE 0.6 MG EACH PO SCH (09:17)
[2017-10-17] MEDS: ALLOPURINOL 300 MG TAB PO SCH (09:17)
[2017-10-17] MEDS: PANTOPRAZOLE 40 MG/10 ML VIAL IV SCH (09:17)
[2017-10-17] MEDS: GABAPENTIN 300 MG CAP PO SCH ×3 (09:17→21:43)
--- NOTE | 2017-10-17 09:25 | CT ---
EXAMINATION TYPE: CT abdomen pelvis wo con DATE OF EXAM: 10/17/2017 COMPARISON: NONE HISTORY: 82-year-old male blood in stool, trauma CT DLP: 1282 mGycm. Automated exposure control for dose reduction was used. TECHNIQUE: Contiguous axial scanning of the abdomen and pelvis without IV contrast. Coronal and sagit mikal reconstructions performed. FINDINGS: Heart normal size without pericardial effusion. Coronary vessel calcifications are present in remarka ble for coronary artery disease. There is patchy right-sided perihilar opacity extending peripherally to the pleural margin into the r ight lung base. Minimal patchy density present at the left base as well. Trace left pleural effusion. 8 mm peripheral right basilar pulmonary nodule. Noncontrast appearance of the liver, gallbladder, adrenal glands, right kidney, and pancreas show no gross abnormal mobility. Spleen mildly enlarged measuring 14.8 cm on axial series. Nonobstructive 5 mm calculus lower pole left kidney. Small diverticulum of the third portion of the duodenum. Moderate atherosclerotic calcifications throughout the abdominal aorta and iliac arteries. 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 In addition, there is fusiform d ilatation of the infrarenal abdominal aorta measuring up to 3.3 cm. No dilated small bowel, free fluid, or free air. No mesenteric or retroperitoneal lymphadenopathy. Normal appendix. Mild stool burden. No pericolonic inflammatory change. Bladder urine distended. Central prostatic calcifications. No abnormal fluid collection in the pelvis or pelvic lymphadenopathy. Bones: Mild degenerative changes at the hips and left SI joint. Degenerative changes lower lumbar spi ne. No osseous destructive process. IMPRESSION: 1. Patchy infiltrate perihilar region right lung. Correlate for any symptoms of pneumonia. Lesser de gree of patchy infiltrate at the left base. Trace left effusion. 2. 8 mm right basilar pulmonary nodule. Recommend CT chest to survey the entire lungs. 3. Mild splenomegaly (14.8 cm). Clinically correlate. 4. 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
[2017-10-17] MEDS: LORATADINE 10 MG TAB PO SCH (10:52)
[2017-10-17] MEDS: EMPAGLIFLOZIN 25 MG PO SCH (10:53)
[2017-10-17] MEDS: INSULIN ASPART 100 UNIT/ML 1 ML 10 ML VIAL SQ SCH ×3 (10:53→17:47)
[2017-10-17] MEDS: PANTOPRAZOLE 40 MG TABLET PO SCH (10:55)
[2017-10-17] MEDS: glipiZIDE 10 MG TAB PO SCH ×2 (10:55→17:47)
--- NOTE | 2017-10-17 11:04 | P.GSCN ---
History of Present Illness Consult date: 10/17/17 History of present illness: Patient is an 82-year-old white male who states that he had a syncopal episode of on Tuesday after he had had several episodes of black stools. He states that he initially had some pain in his left lower quadrant which at this time is resolved. He states that a colonoscopy approximately 2 ago and to his knowledge there is nothing of concern. The patient at this time is resting comfortably with no complaints of pain. He states that since admission he has had no further black bowel movements. Patient's hemoglobin this morning is 13.3 and stable. His computed tomography scan was performed for which a CT of the chest was recommended to evaluate lungs secondary to 8 mm right basilar pulmonary nodule. Review of systems: HEENT: Ears plugged Lungs: Negative Heart: Stents 2 months ago GI: As above : Negative Musculoskeletal: Arthritis Neurologic: Negative Skin: Negative Psychiatric history: Negative Past surgical history: 1. Cardiac stents 2. Sinus surgery Past medical history: Cardiac disease Shortness of breath Review of Systems - Constitutional Reports as per HPI - Cardiovascular Cardiovascular Comment(s): Cardiac stents placed recently Reports as per HPI - Respiratory Reports as per HPI - Gastrointestinal Reports as per HPI - Musculoskeletal Reports as per HPI - Integumentary Reports as per HPI - Neurological Reports as per HPI - Psychiatric Reports as per HPI Past Medical History Past Medical History: COPD, Diabetes Mellitus, GERD/Reflux, Myocardial Infarction ([place]) Additional Past Medical History / Comment(s): SEE DR WAY'S H&P, NEUROPATHY FEET, [place] Last Myocardial Infarction Date:: 2015 History of Any Multi-Drug Resistant Organisms: None Reported Past Surgical History: Heart Catheterization, Heart Catheterization With Stent, Tonsillectomy Additional Past Surgical History / Comment(s): EGD, COLONOSCOPY Past Anesthesia/Blood Transfusion Reactions: No Reported Reaction Date of Last Stent Placement:: 2015 Past Psychological History: No Psychological Hx Reported Smoking Status: Former smoker Past Alcohol Use History: None Reported Additional Past Alcohol Use History / Comment(s): QUIT SMOKING 2006, SMOKED FROM AGE 1947 1 TO 3 AND 1/2PPD Past Drug Use History: None Reported - Past Family History Father Family Medical History: Cancer Mother Family Medical History: No Reported History Medications and Allergies Home Medications Medication Instructions Recorded Confirmed Type Omeprazole [PriLOSEC] 20 mg PO DAILY 06/11/14 10/16/17 History Simvastatin [Zocor] 40 mg PO HS 06/11/14 10/16/17 History Hydrocodone/Acetaminophen [[place] 1 tab PO Q8H PRN 10/12/15 10/16/17 History 7.5-325] Allopurinol 150 mg PO DAILY 10/13/15 10/16/17 History Levothyroxine Sodium [Synthroid] 50 mcg PO DAILY 10/13/15 08/15/17 History Ipratropium-Albuterol Nebulize 3 ml INHALATION RT-QID PRN 08/10/17 10/16/17 History [Duoneb 0.5 mg-3 mg/3 ml Soln] Neuro B Vitamin 80 mg PO DAILY 08/10/17 10/16/17 History Clopidogrel [Plavix] 75 mg PO DAILY #90 tab 08/17/17 10/16/17 Rx Nitroglycerin Sl Tabs [Nitrostat] 0.4 mg SUBLINGUAL Q5M PRN #25 tab 08/17/17 Rx Aspirin EC [Ecotrin Low Dose] 81 mg PO DAILY 10/16/17 10/16/17 History Cholecalciferol [Vitamin D3] 1,000 unit PO DAILY 10/16/17 10/16/17 History Colchicine [Colcrys] 0.6 mg PO DAILY 10/16/17 10/16/17 History Empagliflozin [Jardiance] 25 mg PO DAILY 10/16/17 10/16/17 History Fexofenadine HCl [Mercedes Allergy] 180 mg PO DAILY 10/16/17 10/16/17 History Furosemide [Lasix] 40 mg PO BID 10/16/17 10/16/17 History Gabapentin [Neurontin] 300 mg PO TID 10/16/17 10/16/17 History Insulin Glargine,Hum.rec.anlog 70 unit SQ DAILY 10/16/17 10/16/17 History [Lantus Solostar] Insulin Lispro [humaLOG Kwikpen] 8 unit SQ AC-TID 10/16/17 10/16/17 History Metoprolol Tartrate [Lopressor] 50 mg PO DAILY 10/16/17 10/16/17 History Repaglinide 1 mg PO TID 10/16/17 10/16/17 History glipiZIDE [Glucotrol] 10 mg PO AC-BID 10/16/17 10/16/17 History Allergies Allergy/AdvReac Type Severity Reaction Status Date / Time No Known Allergies Allergy Verified 10/16/17 15:41 Surgical - Exam Vital Signs Temp Pulse Resp BP Pulse Ox 97.0 F L 65 16 100/50 93 L 10/16/17 13:52 10/16/17 13:52 10/16/17 13:52 10/16/17 13:52 10/16/17 13:52 - General no distress, no pain - Neck no masses, trachea midline, no lymphadectomy, no venous distension - Respiratory normal expansion, normal respiratory effort, clear to auscultation - Cardiovascular Rhythm: regular Heart Sounds: normal: S1, S2 - Abdomen Abdomen: soft, bowel sounds - Psychiatric oriented to time, oriented to person, oriented to place, speech is normal Results - Labs 10/17/17 07:09 10/16/17 14:40 Abnormal Lab Results - Last 24 Hours (Table) 10/16/17 10/16/17 10/16/17 Range/Units 14:40 14:40 14:40 Hgb (13.0-17.5) gm/dL RDW 17.0 H (11.5-15.5) % BUN 44 H (9-20) mg/dL Creatinine 1.53 H (0.66-1.25) mg/dL Glucose 189 H (74-99) mg/dL POC Glucose (mg/dL) (75-99) mg/dL Total Creatine Kinase 44 L (55-170) U/L 10/16/17 10/16/17 10/16/17 Range/Units 17:19 20:27 21:49 Hgb 12.7 L (13.0-17.5) gm/dL RDW 16.6 H (11.5-15.5) % BUN (9-20) mg/dL Creatinine (0.66-1.25) mg/dL Glucose (74-99) mg/dL POC Glucose (mg/dL) 149 H 233 H (75-99) mg/dL Total Creatine Kinase (55-170) U/L 10/17/17 10/17/17 Range/Units 07:03 07:09 Hgb (13.0-17.5) gm/dL RDW 16.7 H (11.5-15.5) % BUN (9-20) mg/dL Creatinine (0.66-1.25) mg/dL Glucose (74-99) mg/dL POC Glucose (mg/dL) 313 H (75-99) mg/dL Total Creatine Kinase (55-170) U/L Diabetes panel 10/16/17 Range/Units 14:40 Sodium 139 (137-145) mmol/L Potassium 4.0 (3.5-5.1) mmol/L Chloride 98 (98-107) mmol/L Carbon Dioxide 25 (22-30) mmol/L BUN 44 H (9-20) mg/dL Creatinine 1.53 H (0.66-1.25) mg/dL Glucose 189 H (74-99) mg/dL Calcium 9.0 (8.4-10.2) mg/dL AST 42 (17-59) U/L ALT 29 (21-72) U/L Alkaline Phosphatase 102 (38-126) U/L Total Protein 7.4 (6.3-8.2) g/dL Albumin 3.8 (3.5-5.0) g/dL Calcium panel 10/16/17 Range/Units 14:40 Calcium 9.0 (8.4-10.2) mg/dL Albumin 3.8 (3.5-5.0) g/dL Pituitary panel 10/16/17 Range/Units 14:40 Sodium 139 (137-145) mmol/L Potassium 4.0 (3.5-5.1) mmol/L Chloride 98 (98-107) mmol/L Carbon Dioxide 25 (22-30) mmol/L BUN 44 H (9-20) mg/dL Creatinine 1.53 H (0.66-1.25) mg/dL Glucose 189 H (74-99) mg/dL Calcium 9.0 (8.4-10.2) mg/dL Adrenal panel 10/16/17 Range/Units 14:40 Sodium 139 (137-145) mmol/L Potassium 4.0 (3.5-5.1) mmol/L Chloride 98 (98-107) mmol/L Carbon Dioxide 25 (22-30) mmol/L BUN 44 H (9-20) mg/dL Creatinine 1.53 H (0.66-1.25) mg/dL Glucose 189 H (74-99) mg/dL Calcium 9.0 (8.4-10.2) mg/dL Total Bilirubin 0.6 (0.2-1.3) mg/dL AST 42 (17-59) U/L ALT 29 (21-72) U/L Alkaline Phosphatase 102 (38-126) U/L Total Protein 7.4 (6.3-8.2) g/dL Albumin 3.8 (3.5-5.0) g/dL - Imaging CT scan - abdomen: report reviewed, image reviewed CT scan - pelvis: report reviewed Assessment and Plan Assessment: Impression/plan: 1. 82 year-old white male presenting with black stools 2. Syncopal episode 3. Computed tomography scan questionable lesion in the right basilar lung area Plan: 1. Recommend CT of the chest to survey the entire lungs 2. EGD colonoscopy consider GI consultation 3. Medical management with relationship to syncope
[2017-10-17 11:47] LABS: Glucose,Whole Blood 294 mg/dL (75-99)
[2017-10-17 12:03] LABS: Hemoglobin A1C 10.7 % (4.0-6.0)
[2017-10-17] MEDS: CHOLECALCIFEROL 1,000 UNIT TAB PO SCH (12:33)
[2017-10-17] MEDS: B COMPLEX-VIT C-VIT E-ZINC 1 EACH TAB PO SCH (12:33)
--- NOTE | 2017-10-17 16:42 | P.PN ---
Progress Note - Text Progress Note Date: 10/17/17 Patient's history of black melanotic stools. He will undergo EGD in the a.m.
[2017-10-17 17:37] LABS: Glucose,Whole Blood 281 mg/dL (75-99)
[2017-10-17] MEDS: ATORVASTATIN 20 MG TAB PO SCH (20:14)
[2017-10-17 20:41] LABS: Glucose,Whole Blood 222 mg/dL (75-99)
--- NOTE | 2017-10-17 20:56 | HP ---
HISTORY AND PHYSICAL CHIEF COMPLAINT: [id number] white male with GI bleed. HISTORY OF PRESENT ILLNESS: This is an 83-year-old white male with black stool for the last 2 days. He has had 3 more episodes, more fatigue, some shortness of breath with exertion, mild pain in his upper abdomen. HOME MEDICATIONS: 1. Prilosec. 2. Zocor. 3. Vitamin D3. 4. [place]. . 5. Allopurinol. 6. Synthroid. 7. DuoNeb. ALLERGIES: NEGATIVE. REVIEW OF SYSTEMS: Fourteen-point review of systems negative except for as mentioned in HPI. FAMILY HISTORY: Father had cancer. Mother negative. PHYSICAL EXAMINATION: Vital signs stable. Afebrile. CARDIOVASCULAR: S1, S2. LUNGS: Scattered transmitted upper airway sounds. GI: Soft, nontender. HEMATOLOGIC: Negative Homans. PSYCH: Fair mood and affect. OPHTHALMOLOGIC: Pupils equal, round, reactive to light and accommodation VASCULAR: Normal dorsalis pedis, radial pulse. LABS: BUN 44, creatinine 1.53. White count normal. ASSESSMENT: 1. Gastrointestinal hemorrhage. 2. Acute on chronic anemia. Check for signs of anemia. Possible CT of the chest will be done abnormal CT of the abdomen was seen. Possible endoscopy hemoglobins. MMODL / IJN: [id number] /
--- NOTE | 2017-10-17 21:59 | CT ---
EXAMINATION TYPE: CT chest wo con DATE OF EXAM: 10/17/2017 COMPARISON: NONE HISTORY: SOB. pneumonia CT DLP: 805 mGycm. Automated Exposure Control for Dose Reduction was Utilized. TECHNIQUE: CT scan of the thorax is performed without IV contrast. FINDINGS: There is mild pulmonary emphysema. There is some linear patchy consolidation in the right midlung trupti t is along the right major fissure. This is probably in both the right lower lobe and the right lower lobe. There are multiple paratracheal lymph nodes that measure up to 1.7 cm. Thoracic aorta is ather omatous. There is a 1.5 cm subcarinal lymph node. There is pleural thickening at the left lung base. There is no pericardial effusion. The bony thorax is intact. IMPRESSION: Consolidation in the right midlung along the major fissure that is mostly in the right up per lobe. There is probably right bronchial adenopathy. There is mediastinal adenopathy. This could b e due to inflammatory disease. Tumor is possible. I think inflammatory disease is more likely. There was very little right pulmonary abnormality on the old chest x-ray of 10/03/2016. I do not have a more recent chest x-ray to compare. Mild pleural thickening and scarring at the left lung base. Atherosclerotic vascular disease.
[2017-10-18] MEDS: IPRATROPIUM-ALBUTEROL 3 ML NEB INHALATION SCH ×4 (07:04→19:32)
[2017-10-18 07:16] LABS: Glucose,Whole Blood 181 mg/dL (75-99)
[2017-10-18 07:43] LABS: Anisocytosis Slight; Basophils % (A) 1 %; Eosinophils # (A) 0.2 k/uL (0-0.7); Eosinophils % (A) 3 %; HCT 38.7 % (39.0-53.0); HGB 12.5 gm/dL (13.0-17.5); Lymphocytes % (A) 16 %; MCH 29.3 pg (25.0-35.0); MCHC 32.4 g/dL (31.0-37.0); MCV 90.6 fL (80.0-100.0); Mean Platelet Volume 7.4; Monocytes # (A) 0.3 k/uL (0-1.0); Monocytes % (A) 5 %; Neutrophils # (A) 4.7 k/uL (1.3-7.7); Neutrophils % (A) 74 %; Platelet Count 201 k/uL (150-450); RBC 4.28 m/uL (4.30-5.90); RDW 17.1 % (11.5-15.5); WBC 6.3 k/uL (3.8-10.6)
[2017-10-18] MEDS: INSULIN ASPART 100 UNIT/ML 1 ML 10 ML VIAL SQ SCH ×3 (07:43→17:48)
[2017-10-18] MEDS: SODIUM CHLORIDE 0.9% 1,000 ML IV SCH ×3 (07:44→23:04)
[2017-10-18 08:06] LABS: Albumin 3.4 g/dL (3.5-5.0); Calcium 8.4 mg/dL (8.4-10.2); Potassium 3.9 mmol/L (3.5-5.1); Total Bilirubin 0.8 mg/dL (0.2-1.3); Total Protein 6.8 g/dL (6.3-8.2)
--- NOTE | 2017-10-18 09:16 | CDI ---
Last Revision, May 2017 Documentation Clarification Form Date: 10/18/2017 9:09:00 AM From: Francisca Ortega RN, CCDS Admit Date: 10/18/2017 8:40:00 AM Patient Name: Miguel Grace Visit Number: [id number] ATTENTION: The Clinical Documentation Specialists (CDI) and [facility] Coding Staff appreciate your assistance in clarifying documentation. Please respond to the clarification below the line at the bottom and electronically sign. The CDI & [facility] Coding staff will review the response and follow-up if needed. Please note: Queries are made part of the Legal Health Record. If you have any questions, please contact the author of this message via ITS. Dr. Miguel Parra Please indicate clinical significance of abnormal lab values. History/Risk Factors: black tarry stools x 3 days with fatigue and SOB with exertion 08/17/17 Patients baseline BUN/CR/GFR: 19/1.258 Clinical Indicators: Current BUN: 44/19 Cr: 1.53/1.19 GFR : 42/57 Treatment: IVF: 0.9% NS @ 125 cc/hr Lasix 40 mg PO QD In order to capture the severity of condition, please clarify if the condition signifies: Acute renal failure, Please specify etiology (if known): Cortical Necrosis Medullary Necrosis Tubular Necrosis Acute kidney injury Acute on chronic renal failure CKD Stage 1 GFR >90 CKD Stage 2 GFR 60-89 CKD Stage 3 GFR 30-59 CKD Stage 4 GFR 15-29 CKD Stage 5 GFR <15 Chronic renal failure/Chronic Kidney disease (CKD) please stage if known CKD Stage 1 GFR >90 CKD Stage 2 GFR 60-89 CKD Stage 3 GFR 30-59 CKD Stage 4 GFR 15-29 CKD Stage 5 GFR <15 ESRD Other, please specify Unable to determine Please continue to document in your progress notes and discharge summary in order to capture severity of illness and risk of mortality. Include clinical findings that support your diagnosis. MTDD
--- NOTE | 2017-10-18 10:28 | P.CONS ---
History of Present Illness - Reason for Consult Consult date: 10/18/17 GI bleed melena Requesting physician: Miguel Parra - History of Present Illness 82-year-old gentleman presents with new onset of black colored bowel movements started about 5 days ago with increased fatigue shortness of breath. He fell on Tuesday lost his footing outdoors doing yardwork. Mild upper abdominal discomfort. No hematemesis hematochezia. No history GI bleed. Last colonoscopy about a year ago. Home medications include PPI therapy as well as full-strength aspirin. No alcohol. Admission hemoglobin 13.8 presently 12.5. He is scheduled for EGD evaluation today with general surgery. INR 1.0. BUN 44 presently 19. Creatinine 1.5 presently 1.1. LFTs within normal limits. No recent EGD. 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 Mild splenomegaly. Patchy infiltrate perihilar region right lung. CT chest mild pulmonary emphysema with patchy consolidation in the right midlung with multiple paratracheal lymph nodes measuring up to 1.7 cm. 1.5 cm subcarinal lymph node. Thickening at the left pleural lung base. Probable right bronchial adenopathy and mediastinal adenopathy. Possible inflammatory disease tumor is possible. Review of Systems Constitutional: Denies fever, chills, sweats, weight gain, or loss. Increased fatigue. HEENT: Negative for migraines, blurred vision or loss, earaches, drainage, tinnitus, oral mucosal lesions, dysphagia, or odynophagia. Cardiac: Negative for chest pain, arrhythmias, or palpitation. Respiratory: Increased shortness of breath, denies hemoptysis, cough, or sputum production. Gastrointestinal: See HPI for pertinent findings. Genitourinary: Negative for hematuria, urgency, frequency, polyuria, dysuria, or penile discharge. Musculoskeletal: Negative for muscle aches, swelling, arthritis, and arthralgias. Neurologic: Negative for stroke or TIA. Endocrine: Negative for thyroid problems. Skin: Negative for rash or itching. Psychiatric: Negative history for depression and anxiety Past Medical History Past Medical History: COPD, Diabetes Mellitus, GERD/Reflux, Myocardial Infarction ([place]) Additional Past Medical History / Comment(s): SEE DR WAY'S H&P, NEUROPATHY FEET, [place] Last Myocardial Infarction Date:: 2015 History of Any Multi-Drug Resistant Organisms: None Reported Past Surgical History: Heart Catheterization, Heart Catheterization With Stent, Tonsillectomy Additional Past Surgical History / Comment(s): EGD, COLONOSCOPY Past Anesthesia/Blood Transfusion Reactions: No Reported Reaction Date of Last Stent Placement:: 2015 Past Psychological History: No Psychological Hx Reported Smoking Status: Former smoker Past Alcohol Use History: None Reported Additional Past Alcohol Use History / Comment(s): QUIT SMOKING 2006, SMOKED FROM AGE 1949 1 TO 3 AND 1/2PPD Past Drug Use History: None Reported - Past Family History Father Family Medical History: Cancer Mother Family Medical History: No Reported History Medications and Allergies Home Medications Medication Instructions Recorded Confirmed Type Omeprazole [PriLOSEC] 20 mg PO DAILY 06/11/14 10/16/17 History Simvastatin [Zocor] 40 mg PO HS 06/11/14 10/16/17 History Hydrocodone/Acetaminophen [[place] 1 tab PO Q8H PRN 10/12/15 10/16/17 History 7.5-325] Allopurinol 150 mg PO DAILY 10/13/15 10/16/17 History Levothyroxine Sodium [Synthroid] 50 mcg PO DAILY 10/13/15 08/15/17 History Ipratropium-Albuterol Nebulize 3 ml INHALATION RT-QID PRN 08/10/17 10/16/17 History [Duoneb 0.5 mg-3 mg/3 ml Soln] Neuro B Vitamin 80 mg PO DAILY 08/10/17 10/16/17 History Clopidogrel [Plavix] 75 mg PO DAILY #90 tab 08/17/17 10/16/17 Rx Nitroglycerin Sl Tabs [Nitrostat] 0.4 mg SUBLINGUAL Q5M PRN #25 tab 08/17/17 Rx Aspirin EC [Ecotrin Low Dose] 81 mg PO DAILY 10/16/17 10/16/17 History Cholecalciferol [Vitamin D3] 1,000 unit PO DAILY 10/16/17 10/16/17 History Colchicine [Colcrys] 0.6 mg PO DAILY 10/16/17 10/16/17 History Empagliflozin [Jardiance] 25 mg PO DAILY 10/16/17 10/16/17 History Fexofenadine HCl [Mercedes Allergy] 180 mg PO DAILY 10/16/17 10/16/17 History Furosemide [Lasix] 40 mg PO BID 10/16/17 10/16/17 History Gabapentin [Neurontin] 300 mg PO TID 10/16/17 10/16/17 History Insulin Glargine,Hum.rec.anlog 70 unit SQ DAILY 10/16/17 10/16/17 History [Lantus Solostar] Insulin Lispro [humaLOG Kwikpen] 8 unit SQ AC-TID 10/16/17 10/16/17 History Metoprolol Tartrate [Lopressor] 50 mg PO DAILY 10/16/17 10/16/17 History Repaglinide 1 mg PO TID 10/16/17 10/16/17 History glipiZIDE [Glucotrol] 10 mg PO AC-BID 10/16/17 10/16/17 History Allergies Allergy/AdvReac Type Severity Reaction Status Date / Time No Known Allergies Allergy Verified 10/16/17 15:41 Physical Exam Vitals: Vital Signs Temp Pulse Pulse Resp BP Pulse Ox 10/18/17 08:00 87 18 10/18/17 07:18 92 10/18/17 07:13 98.1 F 87 18 107/63 95 10/18/17 07:06 88 94 L 10/17/17 22:00 18 10/17/17 20:30 97.6 F 94 18 106/55 94 L 10/17/17 19:01 84 10/17/17 18:52 88 10/17/17 16:04 97.7 F 91 16 99/62 93 L 10/17/17 16:00 91 16 10/17/17 15:38 77 10/17/17 15:27 76 10/17/17 11:17 80 10/17/17 11:07 80 Intake and Output 10/17/17 10/18/17 10/18/17 22:59 06:59 14:59 Intake Total 840 Balance 840 Intake: Oral 840 Other: Voiding Method Toilet Toilet Urinal Urinal # Voids 1 2 2 # Bowel Movements 0 # [place] 0 Weight 106.5 kg General appearance: The patient is alert, oriented, in no acute distress. HET: Head is normocephalic and atraumatic. Pupils are equal and reactive. Oropharynx is clear without lesions. Neck: Supple without lymphadenopathy. Trachea midline. Heart: S1 S2. Regular rate and rhythm. Lungs: No crackles or wheezes are heard. Abdomen: Soft, nontender, nondistended with bowel sounds. No peritoneal signs. No palpable organomegaly or masses. Extremities: Scattered bruising to the extremities. Normal skin color and turgor. No cyanosis, rash, ulceration, clubbing, or edema. Radial and pedal pulses are 2/4 bilaterally. Neurological: No focal deficits. Strength and sensation are grossly intact. Results CBC & Chem 7: 10/18/17 07:11 10/18/17 07:11 Labs: Abnormal Lab Results - Last 24 Hours (Table) 10/16/17 10/17/17 10/17/17 Range/Units 14:43 11:46 17:36 RBC (4.30-5.90) m/uL Hgb (13.0-17.5) gm/dL Hct (39.0-53.0) % RDW (11.5-15.5) % Glucose (74-99) mg/dL POC Glucose (mg/dL) 294 H 281 H (75-99) mg/dL Hemoglobin A1c 10.7 H (4.0-6.0) % Albumin (3.5-5.0) g/dL 10/17/17 10/18/17 10/18/17 Range/Units 20:39 07:11 07:11 RBC 4.28 L (4.30-5.90) m/uL Hgb 12.5 L (13.0-17.5) gm/dL Hct 38.7 L (39.0-53.0) % RDW 17.1 H (11.5-15.5) % Glucose 186 H (74-99) mg/dL POC Glucose (mg/dL) 222 H (75-99) mg/dL Hemoglobin A1c (4.0-6.0) % Albumin 3.4 L (3.5-5.0) g/dL 10/18/17 Range/Units 07:15 RBC (4.30-5.90) m/uL Hgb (13.0-17.5) gm/dL Hct (39.0-53.0) % RDW (11.5-15.5) % Glucose (74-99) mg/dL POC Glucose (mg/dL) 181 H (75-99) mg/dL Hemoglobin A1c (4.0-6.0) % Albumin (3.5-5.0) g/dL CT scan - abdomen: report reviewed (Dr. Brizuela) CT scan - chest: report reviewed (Dr. Brizuela) Assessment and Plan (1) GI hemorrhage Narrative/Plan: 82-year-old male presents with 4-5 day history of black colored bowel movements component of acute mild blood loss anemia with mild midepigastric discomfort possible peptic ulcer disease. Current Visit: Yes Status: Acute Code(s): K92.2 - GASTROINTESTINAL HEMORRHAGE, UNSPECIFIED SNOMED Code(s): 98575322 Plan: 1. EGD scheduled today with general surgery. 2. Continue CBC monitoring and Protonix 40 mg daily. Thank you for this kind referral and the opportunity to participate in the care of your patient. This consultation was discussed with Dr. Brizuela. The impression and plan of care have been directed as dictated.
[2017-10-18 11:20] LABS: Glucose,Whole Blood 204 mg/dL (75-99)
[2017-10-18] MEDS ORDERED: fentaNYL (PF) 50 MCG/ML 2 ML AMP ONE (12:08)
[2017-10-18] MEDS ORDERED: PROPOFOL 10 MG/ML 20 ML VIAL IV ONE (12:08)
[2017-10-18] MEDS ORDERED: LIDOCAINE 1% INJ 10MG/ML (20 ML MDV) ONE (12:08)
[2017-10-18] MEDS ORDERED: IV FLUID CONTINUATION 1,000 ML IV ONE (12:09)
--- NOTE | 2017-10-18 12:25 | P.OP ---
Date of Procedure: 10/18/17 Preoperative Diagnosis: GI bleed Postoperative Diagnosis: Antral gastritis with evidence of hemorrhagic gastritis Procedure(s) Performed: EGD Anesthesia: MAC Surgeon: Chris Harris Pathology: other (Antrum) Condition: stable Disposition: PACU Description of Procedure: The patient's placed on the endoscopy table lateral position. He received IV sedation. The gastroscope was placed oropharynx and passed the esophagus and into the stomach. The scope was then placed through the pylorus. The first and second portion of duodenum appeared normal. There is known to any duodenal ulcers. Scope was then brought back the antrum there is evidence of some hemorrhagic gastritis. This area is biopsied. There is no active bleeding seen. Scope was unretroflexed and remainder stomach appeared normal. The GE junction was at 40 cm. There is no evidence of any hiatal hernias. The distal esophagus and proximal esophagus appeared normal. The scope was withdrawn from patient.
[2017-10-18] MEDS: INSULIN DETEMIR 100 UNIT/ML 10 ML VIAL SQ SCH (12:50)
[2017-10-18] MEDS: glipiZIDE 10 MG TAB PO SCH ×2 (12:52→17:35)
[2017-10-18] MEDS: REPAGLINIDE 1 MG TAB PO SCH ×4 (12:55→22:09)
[2017-10-18] MEDS: COLCHICINE 0.6 MG EACH PO SCH (12:56)
[2017-10-18] MEDS: GABAPENTIN 300 MG CAP PO SCH ×3 (12:56→22:09)
[2017-10-18] MEDS: PANTOPRAZOLE 40 MG TABLET PO SCH (12:56)
[2017-10-18] MEDS: LORATADINE 10 MG TAB PO SCH (12:56)
[2017-10-18] MEDS: METOPROLOL TARTRATE 50 MG TAB PO SCH (12:57)
[2017-10-18] MEDS: B COMPLEX-VIT C-VIT E-ZINC 1 EACH TAB PO SCH (12:57)
[2017-10-18] MEDS: FUROSEMIDE 40 MG TAB PO SCH ×2 (12:57→22:42)
[2017-10-18] MEDS: CHOLECALCIFEROL 1,000 UNIT TAB PO SCH (12:57)
[2017-10-18] MEDS: ALLOPURINOL 300 MG TAB PO SCH (12:58)
[2017-10-18] MEDS: EMPAGLIFLOZIN 25 MG PO SCH (12:59)
[2017-10-18] MEDS: HYDROcodone/APAP 7.5-325MG 1 EACH TAB PO PRN (14:08)
[2017-10-18 17:29] LABS: Glucose,Whole Blood 102 mg/dL (75-99)
[2017-10-18 20:13] LABS: Glucose,Whole Blood 106 mg/dL (75-99)
[2017-10-18] MEDS: ATORVASTATIN 20 MG TAB PO SCH (22:09)
[2017-10-19] MEDS: HYDROcodone/APAP 7.5-325MG 1 EACH TAB PO PRN (06:06)
[2017-10-19] MEDS: IPRATROPIUM-ALBUTEROL 3 ML NEB INHALATION SCH ×3 (07:13→15:43)
[2017-10-19 07:30] LABS: Glucose,Whole Blood 156 mg/dL (75-99)
[2017-10-19 08:05] VITALS: PULSE 79; RESP 18
[2017-10-19] MEDS: LORATADINE 10 MG TAB PO SCH (08:06)
[2017-10-19] MEDS: GABAPENTIN 300 MG CAP PO SCH ×2 (08:06→15:14)
[2017-10-19] MEDS: INSULIN ASPART 100 UNIT/ML 1 ML 10 ML VIAL SQ SCH ×2 (08:06→12:35)
[2017-10-19] MEDS: ALLOPURINOL 300 MG TAB PO SCH (08:06)
[2017-10-19] MEDS: FUROSEMIDE 40 MG TAB PO SCH (08:06)
[2017-10-19] MEDS: REPAGLINIDE 1 MG TAB PO SCH ×2 (08:06→17:16)
[2017-10-19] MEDS: METOPROLOL TARTRATE 50 MG TAB PO SCH (08:06)
[2017-10-19] MEDS: PANTOPRAZOLE 40 MG TABLET PO SCH (08:06)
[2017-10-19] MEDS: glipiZIDE 10 MG TAB PO SCH (08:06)
[2017-10-19] MEDS: COLCHICINE 0.6 MG EACH PO SCH (08:07)
[2017-10-19] MEDS: INSULIN DETEMIR 100 UNIT/ML 10 ML VIAL SQ SCH (08:07)
[2017-10-19] MEDS: SODIUM CHLORIDE 0.9% 1,000 ML IV SCH ×2 (08:34→15:14)
[2017-10-19] MEDS: EMPAGLIFLOZIN 25 MG PO SCH (08:45)
[2017-10-19] MEDS: B COMPLEX-VIT C-VIT E-ZINC 1 EACH TAB PO SCH (11:09)
[2017-10-19] MEDS: CHOLECALCIFEROL 1,000 UNIT TAB PO SCH (11:09)
[2017-10-19 11:52] LABS: Glucose,Whole Blood 212 mg/dL (75-99)
--- NOTE | 2017-10-19 15:21 | P.CNPUL ---
History of Present Illness Consult date: 10/19/17 Requesting physician: Miguel Parra Reason for consult: abnormal CXR/CT Chief complaint: Mediastinal and bronchial adenopathy, rule out malignant process History of present illness: Mr. Grace is a 82-year-old white male patient of Dr. Miguel Parra, who presented to the hospital on 10/16/2017 at 1338 with complaints of black stools , fatigue, shortness of breath on exertion, and some mild discomfort in his upper abdomen. Occult stool was positive, abdominal CT showed small diverticulum of the third portion of the duodenum, no dilated small bowel, free fluid or free air. Patient underwent EGD today which showed antral gastritis with no active bleeding. Admission hemoglobin was 12.7 on 10/16/2017, on today' s blood work it is 12.5, and the patient has been hemodynamically stable and has not required any blood transfusions this admission. Also on the abdomen CT there was a patchy infiltrate in the perihilar region of the right lung seen, and the lesser patchy infiltrate at the left lung base with trace pleural effusion. There was a 8mm right basilar pulmonary nodule seen and a follow-up CT chest was completed, showed consolidation in the right midlung along the major fissure that is mostly in the right upper lobe, probable right branchial adenopathy, mediastinal adenopathy, could not rule out malignancy. There were multiple paratracheal lymph nodes measuring up to 1.7 centimeters, there was a 1.5 cm subcarinal lymph node, pleural thickening at the left lung base, and thoracic aorta was noted to be atheromatous. And we were consulted in regards to the bronchial and mediastinal lymph nodes seen on the CT chest. Other medical history includes COPD, sleep apnea on CPAP therapy, former nicotine dependence, patient carries over [id number] smoking history, quit 11 years ago , [place], pneumonia, diabetes mellitus, GERD/reflux. Review of Systems All systems: negative Constitutional: Denies chills, Denies fever Eyes: denies blurred vision, denies pain Ears, nose, mouth and throat: Denies headache, Denies sore throat Cardiovascular: Denies chest pain, Denies shortness of breath Respiratory: Denies cough Gastrointestinal: Denies abdominal pain, Denies diarrhea, Denies nausea, Denies vomiting Musculoskeletal: Denies myalgias Integumentary: Denies pruritus, Denies rash Neurological: Denies numbness, Denies weakness Psychiatric: Denies anxiety, Denies depression Endocrine: Denies fatigue, Denies weight change Past Medical History Past Medical History: COPD, Diabetes Mellitus, GERD/Reflux, Myocardial Infarction ([place]) Additional Past Medical History / Comment(s): SEE DR WAY'S H&P, NEUROPATHY FEET, [place] 1980,2015 Last Myocardial Infarction Date:: 2015 History of Any Multi-Drug Resistant Organisms: None Reported Past Surgical History: Heart Catheterization, Heart Catheterization With Stent, Tonsillectomy Additional Past Surgical History / Comment(s): EGD, COLONOSCOPY Past Anesthesia/Blood Transfusion Reactions: No Reported Reaction Date of Last Stent Placement:: 2015 Past Psychological History: No Psychological Hx Reported Smoking Status: Former smoker Past Alcohol Use History: None Reported Additional Past Alcohol Use History / Comment(s): QUIT SMOKING 2006, SMOKED FROM AGE 1947 1 TO 3 AND 1/2PPD Past Drug Use History: None Reported - Past Family History Father Family Medical History: Cancer Mother Family Medical History: No Reported History Medications and Allergies Home Medications Medication Instructions Recorded Confirmed Type Omeprazole [PriLOSEC] 20 mg PO DAILY 06/11/14 10/16/17 History Simvastatin [Zocor] 40 mg PO HS 06/11/14 10/16/17 History Hydrocodone/Acetaminophen [[place] 1 tab PO Q8H PRN 10/12/15 10/16/17 History 7.5-325] Allopurinol 150 mg PO DAILY 10/13/15 10/16/17 History Levothyroxine Sodium [Synthroid] 50 mcg PO DAILY 10/13/15 08/15/17 History Ipratropium-Albuterol Nebulize 3 ml INHALATION RT-QID PRN 08/10/17 10/16/17 History [Duoneb 0.5 mg-3 mg/3 ml Soln] Neuro B Vitamin 80 mg PO DAILY 08/10/17 10/16/17 History Clopidogrel [Plavix] 75 mg PO DAILY #90 tab 08/17/17 10/16/17 Rx Nitroglycerin Sl Tabs [Nitrostat] 0.4 mg SUBLINGUAL Q5M PRN #25 tab 08/17/17 Rx Aspirin EC [Ecotrin Low Dose] 81 mg PO DAILY 10/16/17 10/16/17 History Cholecalciferol [Vitamin D3] 1,000 unit PO DAILY 10/16/17 10/16/17 History Colchicine [Colcrys] 0.6 mg PO DAILY 10/16/17 10/16/17 History Empagliflozin [Jardiance] 25 mg PO DAILY 10/16/17 10/16/17 History Fexofenadine HCl [Mercedes Allergy] 180 mg PO DAILY 10/16/17 10/16/17 History Furosemide [Lasix] 40 mg PO BID 10/16/17 10/16/17 History Gabapentin [Neurontin] 300 mg PO TID 10/16/17 10/16/17 History Insulin Glargine,Hum.rec.anlog 70 unit SQ DAILY 10/16/17 10/16/17 History [Lantus Solostar] Insulin Lispro [humaLOG Kwikpen] 8 unit SQ AC-TID 10/16/17 10/16/17 History Metoprolol Tartrate [Lopressor] 50 mg PO DAILY 10/16/17 10/16/17 History Repaglinide 1 mg PO TID 10/16/17 10/16/17 History glipiZIDE [Glucotrol] 10 mg PO AC-BID 10/16/17 10/16/17 History Allergies Allergy/AdvReac Type Severity Reaction Status Date / Time No Known Allergies Allergy Verified 10/16/17 15:41 Physical Exam Vitals: Vital Signs Temp Pulse Pulse Resp BP Pulse Ox 10/19/17 08:00 79 18 10/19/17 07:25 97.6 F 78 79 18 132/61 92 L 10/19/17 07:14 72 10/19/17 01:34 76 107/51 10/18/17 22:42 78 98/50 10/18/17 20:15 97.8 F 68 20 109/60 93 L 10/18/17 19:43 88 10/18/17 19:33 88 16 10/18/17 15:44 70 10/18/17 15:40 87 16 10/18/17 15:34 70 16 10/18/17 15:30 97.3 F L 75 17 103/56 93 L Intake and Output 10/18/17 10/19/17 10/19/17 22:59 06:59 14:59 Intake Total 450 875 480 Output Total 600 Balance -150 875 480 Intake: Intake, IV Titration 875 Amount Sodium Chloride 0.9% 1, 875 000 ml @ 125 mls/hr IV . Q8H [facility] Rx#:[id number] Oral 450 480 Output: Urine 600 Other: Voiding Method Toilet Toilet Urinal Urinal # Voids 1 # Bowel Movements 0 # [place] 0 Weight 114.5 kg GENERAL EXAM: Alert, pleasant obese 82-year-old white male, comfortable in no apparent distress. HEAD: Normocephalic/atraumatic. EYES: Normal reaction of pupils, equal size. Conjunctiva pink, sclera white. NOSE: Clear with pink turbinates. THROAT: No erythema or exudates. NECK: No masses, no JVD, no thyroid enlargement, no adenopathy. CHEST: No chest wall deformity. Symmetrical expansion. LUNGS: Equal air entry with some coarse crackles in bilateral lower lungs, no wheezes or rhonchi noted CVS: Regular rate and rhythm, normal S1 and S2, no gallops, no murmurs, no rubs ABDOMEN: Soft, obese, nontender. No hepatosplenomegaly, normal bowel sounds, no guarding or rigidity. EXTREMITIES: No clubbing, no edema, no cyanosis, 2+ pulses and upper and lower extremities. MUSCULOSKELETAL: Muscle strength and tone normal. SPINE: No scoliosis or deformity SKIN: No rashes CENTRAL NERVOUS SYSTEM: Alert and oriented -3. No focal deficits, tone is normal in all 4 extremities. PSYCHIATRIC: Alert and oriented -3. Appropriate affect. Intact judgment and insight. Results - Laboratory Findings CBC and BMP: 10/18/17 07:11 10/18/17 07:11 PT/INR, D-dimer PT 10.0 sec (9.0-12.0) 10/16/17 14:40 INR 1.0 (<1.2) 10/16/17 14:40 D-Dimer 0.49 mg/L FEU (<0.60) 10/17/17 20:35 Abnormal lab findings: Abnormal Labs 10/16/17 10/16/17 10/16/17 14:40 14:40 14:40 RBC Hgb Hct RDW 17.0 H BUN 44 H Creatinine 1.53 H Glucose 189 H POC Glucose (mg/dL) Hemoglobin A1c Total Creatine Kinase 44 L Albumin 10/16/17 10/16/1710/16/18 14:43 17:19 20:27 RBC Hgb Hct RDW BUN Creatinine Glucose POC Glucose (mg/dL) 149 H 233 H Hemoglobin A1c 10.7 H Total Creatine Kinase Albumin 10/16/17 10/17/17 10/17/17 21:49 07:03 07:09 RBC Hgb 12.7 L Hct RDW 16.6 H 16.7 H BUN Creatinine Glucose POC Glucose (mg/dL) 313 H Hemoglobin A1c Total Creatine Kinase Albumin 10/17/17 10/17/17 10/17/17 11:46 17:36 20:39 RBC Hgb Hct RDW BUN Creatinine Glucose POC Glucose (mg/dL) 294 H 281 H 222 H Hemoglobin A1c Total Creatine Kinase Albumin 10/18/17 10/18/17 10/18/17 07:11 07:11 07:15 RBC 4.28 L Hgb 12.5 L Hct 38.7 L RDW 17.1 H BUN Creatinine Glucose 186 H POC Glucose (mg/dL) 181 H Hemoglobin A1c Total Creatine Kinase Albumin 3.4 L 10/18/17 10/18/17 10/18/17 11:18 17:27 20:12 RBC Hgb Hct RDW BUN Creatinine Glucose POC Glucose (mg/dL) 204 H 102 H 106 H Hemoglobin A1c Total Creatine Kinase Albumin 10/19/17 10/19/17 07:26 11:33 RBC Hgb Hct RDW BUN Creatinine Glucose POC Glucose (mg/dL) 156 H 212 H Hemoglobin A1c Total Creatine Kinase Albumin - Diagnostic Findings CT scan - chest: report reviewed, image reviewed Additional studies: Abdomen/pelvis CT, and abdomen x-ray reviewed Assessment and Plan Plan: Assessment: #1. Bronchial and mediastinal adenopathy, as seen on CT chest from 10/17/2017, and there are multiple paratracheal lymph nodes measuring up to 1.7 cm, and 1.5 cm subcarinal lymph node noted. This is a new finding, and will be followed up on an outpatient basis with a PET scan. Patient denies any chest pain, increasing dyspnea, hemoptysis, weight loss, night sweats. #2. History of COPD, with an unknown lung function. CT chest showed mild pulmonary emphysema. Not oxygen or prednisone dependent at this time, maintenance treatments include DuoNeb nebulizer treatments 3 times a day and as needed #3. History of nicotine dependence, patient carries over [id number] smoking history, quit 11 years ago #4. Acute GI blood loss anemia, and patient underwent EGD today on 10/19/2017 which showed antral gastritis with no active bleeding #5. Obstructive sleep apnea, on CPAP therapy #6. Obesity with BMI of 36.2 kg/m #7. Diabetes mellitus type 2, with diabetic neuropathy #8. History of myocardial infarction #9. History of left lower lung pneumonia in 2017 Plan: From pulmonary standpoint patient can be discharged home today, the CT of the chest showing paratracheal and subcarinal lymph nodes was reviewed with the patient and his daughter. This will be followed up on an outpatient basis, patient will have a appointment with Dr. Cortés in the office, will obtain a PET scan. Is not complaining of any dyspnea at this time, no chest pain, no hemoptysis, no weight loss, no night sweats. Patient's COPD seems to be stable at this time. Will need an outpatient full PFT in the office to quantify lung function. Patient was previously seen by Dr. REJI Rivera for his COPD and sleep apnea, but now would like to follow with Dr. Knox. I performed a history & physical examination of the patient and discussed their management with my nurse practitioner, Allison Thakur. I reviewed the nurse practitioner's note and agree with the documented findings and plan of care. Lung sounds are coarse crackles at bilateral lower lung. The findings and the impression was discussed with the patient. I attest to the documentation by the nurse practitioner. Time with Patient: Greater than 30
[2017-10-19 16:27] VITALS: BP 121/65; TEMP 97.7
--- NOTE | 2017-10-19 17:25 | P.PN ---
Progress Note - Text Progress Note Date: 10/19/17 The patient is feeling better. He has had no evidence of GI bleed. On exam his vital signs are stable. His abdomen soft. Patient will be discharged home today. He'll follow myself in one week to go over his biopsy results.
--- NOTE | 2017-10-19 20:14 | DS ---
DISCHARGE SUMMARY DISCHARGE MEDICATIONS: 1. Zocor 40 mg daily. 2. Prilosec 20 mg daily. 3. [place] 7.5 q.8 hours. 4. Synthroid 50 mcg daily. 5. Allopurinol 150 daily. 6. DuoNeb q.i.d. 7. B complex vitamin daily. 8. Plavix 75 mg daily. 9. Nitro sublingually p.r.n. 10.Humalog 8 units before meals t.i.d. 11.Lantus 70 units daily. 12.Colcrys 0.6 mg daily. 13.Glucotrol 10 mg b.i.d. 14.Mercedes 180 daily. 15.Jardiance 25 mg daily. 16.Vitamin D3 1000 units daily. 17.Ecotrin 81 mg daily. 18.Lopressor 50 daily. 19.Lasix 40 b.i.d. 20.Repaglinide 1 mg t.i.d. 21.Neurontin 300 t.i.d. CONDITION: Stable. PROGNOSIS: Guarded. Ambulate as tolerated. DISCHARGE DIAGNOSES: 1. Acute gastrointestinal hemorrhage. 2. Diastolic congestive heart failure. 3. Hypertension. 4. Dyslipidemia. 5. Chronic obstructive pulmonary disease. 6. Pulmonary infiltrate, unclear etiology; possible pneumonia. 7. Acute on chronic renal failure. 8. Chronic renal disease, stage III. HOSPITAL COURSE: This is a white male who came in with some GI bleeding out of the rectum with dark stool, black tarry stool. He had an endoscopy by Dr. Harris which showed 3 or 4 areas in the stomach where you could tell he had some old bleeding. Biopsies were taken. No severe drop in his hemoglobin was seen. His CT scan of his abdomen was negative for bleeding but showed some infiltrates in the lungs, asymptomatic for pneumonia, but it showed some adenopathy in the chest, possibly inflammatory in nature. Dr. Panfilo Cortés was consulted, who follow up in 2 weeks on this for a possible bronchoscopy versus PET scan. MMODL / IJN: [id number] /
--- NOTE | 2017-10-21 08:03 | CDI ---
Last Revision, May 2017 Documentation Clarification Form Date: 10/21/17 From: Cat Poe Phone: If you have a question regarding this query, please contact Cora Smith at [phone] between 8am and 5pm Admit Date: 10/18/2017 8:40:00 AM Patient Name: Miguel Grace Visit Number: [id number] Discharge Date: 10/19/17 ATTENTION: The Clinical Documentation Specialists (CDI) and [facility] Coding Staff appreciate your assistance in clarifying documentation. Please respond to the clarification below the line at the bottom and electronically sign. The CDI & [facility] Coding staff will review the response and follow-up if needed. Please note: Queries are made part of the Legal Health Record. If you have any questions, please contact the author of this message via ITS. Dr. Miguel Parra Patient was admitted due to GI bleed. He presented with a complaing of black stool for 2 days. Per EGD, the patient has antral gastritis with evidence of hemorrhagic gastritis. Gastritis is not documented in the discharge summary. Patient history/risk factors: Patient has a history of GERD, diabetes, CAD, emphysema and obesity. Clinical Indicators: Syncope, black stools. EGD findings: Antral gastritis with evidence of hemorrhagic gastritis. Vital Signs: T. 97.0, P. 65, R. 16, BP 100/50 Treatment: IV protonix Consults: In your professional opinion, can you please clarify the cause of the GI bleed? Gastritis Acute Chronic Duodenitis Acute Chronic Other, please specify Unable to determine MTDD
--- NOTE | 2017-10-25 09:13 | CDI ---
Last Revision, May 2017 Documentation Clarification Form Date: 10/25/17 From: Cat Poe Phone: If you have a question regarding this query, please contact Cora Smith at [phone] between 8am and 5pm Admit Date: 10/18/2017 8:40:00 AM Patient Name: Miguel Grace Visit Number: [id number] Discharge Date: 10/19/17 ATTENTION: The Clinical Documentation Specialists (CDI) and [facility] Coding Staff appreciate your assistance in clarifying documentation. Please respond to the clarification below the line at the bottom and electronically sign. The CDI & [facility] Coding staff will review the response and follow-up if needed. Please note: Queries are made part of the Legal Health Record. If you have any questions, please contact the author of this message via ITS. Dr. Miguel Parra Thank you for signing the previous query. Please document a response before signing this query. Patient was admitted due to GI bleed. He presented with a complaing of black stool for 2 days. Per EGD, the patient has antral gastritis with evidence of hemorrhagic gastritis. Gastritis is not documented in the discharge summary. Patient history/risk factors: Patient has a history of GERD, diabetes, CAD, emphysema and obesity. Clinical Indicators: Syncope, black stools. EGD findings: Antral gastritis with evidence of hemorrhagic gastritis. Vital Signs: T. 97.0, P. 65, R. 16, BP 100/50 Treatment: IV protonix Consults: In your professional opinion, can you please clarify the cause of the GI bleed? Gastritis Acute Chronic Duodenitis Acute Chronic Other, please specify Unable to determine MTDD
--- NOTE | 2017-10-26 19:33 | DS ---
DISCHARGE SUMMARY ADDENDUM TO DISCHARGE SUMMARY: Addition: Antral gastritis with evidence of hemorrhagic gastritis. MMODL / IJN: [id number] /
== END 2017-10-19 17:15 | disposition home or self-care (01) | DRG 378 ==
LOC: EC 13:38 → 5MS5E 15:20 → OBSVTOIN 10-18 08:40
PROVIDERS: ADMIT Family Medicine; ATTEND Family Medicine
PROC: 0DB78ZX Excision of Stomach, Pylorus, Via Natural or Artificial Opening Endoscopic, Diagnostic (ICD-10-PCS; principal; 2017-10-18 08:00)
DX: K29.71 Gastritis, unspecified, with bleeding (principal); D62 Acute posthemorrhagic anemia; N17.9 Acute kidney failure, unspecified; I13.0 Hypertensive heart and chronic kidney disease with heart failure and stage 1 through stage 4 chronic kidney disease, or unspecified chronic kidney disease; I50.32 Chronic diastolic (congestive) heart failure; E11.22 Type 2 diabetes mellitus with diabetic chronic kidney disease; E11.40 Type 2 diabetes mellitus with diabetic neuropathy, unspecified; E66.9 Obesity, unspecified; E78.5 Hyperlipidemia, unspecified; G47.33 Obstructive sleep apnea (adult) (pediatric); I25.2 Old myocardial infarction; K57.10 Diverticulosis of small intestine without perforation or abscess without bleeding; I71.4 Abdominal aortic aneurysm, without rupture; J43.9 Emphysema, unspecified; K21.9 Gastro-esophageal reflux disease without esophagitis; N18.3 Chronic kidney disease, stage 3 (moderate); R16.1 Splenomegaly, not elsewhere classified; R55 Syncope and collapse; R91.1 Solitary pulmonary nodule; R59.0 Localized enlarged lymph nodes; I25.10 Atherosclerotic heart disease of native coronary artery without angina pectoris; Z68.36 Body mass index [BMI] 36.0-36.9, adult; Z79.02 Long term (current) use of antithrombotics/antiplatelets; Z79.4 Long term (current) use of insulin; Z79.899 Other long term (current) drug therapy; Z79.82 Long term (current) use of aspirin; Z79.890 Hormone replacement therapy; Z87.01 Personal history of pneumonia (recurrent); Z87.891 Personal history of nicotine dependence; Z95.5 Presence of coronary angioplasty implant and graft; Z80.9 Family history of malignant neoplasm, unspecified; Z91.81 History of falling
CPT/HCPCS: 36415; 43239; 71250; 74018; 74176; 80053; 82272; 82550; 82553; 83036; 84484; 85025; 85379; 85610; 85730; 88305; 94640; 94760; 96361; 96374; 99285

== ENCOUNTER → 2018-04-24 | Outpatient (CLI) | payer MEDICARE, OTHER ==
--- NOTE | 2018-04-24 10:16 | CT ---
EXAMINATION TYPE: CT chest wo con DATE OF EXAM: 04/24/2018 COMPARISON: 10/17/2017 HISTORY: 82-year-old male with mediastinal lymphadenopathy. TECHNIQUE: Contiguous axial scanning of the chest without IV contrast. Coronal and sagittal reconstru ctions performed. CT DLP: 520.9 mGycm Automated exposure control for dose reduction was used. FINDINGS: Heart normal size without pericardial effusion. Coronary vessel calcifications are present. Ectatic ascending aorta at 3.8 cm with mild to moderate atherosclerotic arch calcifications. Conventi onal arch vessel branching anatomy. Mildly enlarged caliber to the main right and left pulmonary arteries at 2.8 and 2.9 cm, respectively . Redemonstrated nonenlarged and mildly enlarged mediastinal lymph nodes. AP window lymph node now hoa ures 1.0 cm versus 8 mm, previously. Precarinal lymph node measures 1.2 cm, unchanged. Subcarinal lym ph node measures 1.3 cm versus 1.8 cm, previously. Upper right paratracheal lymph node measures 1.4 c m versus 1.6 cm, previously. Asymmetric left-sided [id number] gynecomastia. There is moderate centrilobular emphysema and suggestion of some interstitial fibrosis in the lower l ungs. Peripheral right basilar pulmonary nodule measures 1.0 cm versus 8 mm, previously. Continued central right middle lobe consolidation along the fissures shows overall decrease in size m easuring 5.2 x 3.0 cm versus 6.0 x 4.3 cm, previously. Prominent opacity persists and there is an adj acent spiculated region measuring 1.6 cm in the right perihilar region along the superior aspect of t he opacity, axial image 27 and sagittal image 40, the coronal image 51. This previously measured 1.2 cm, axial image 26 on the patient's prior study. At the site of more peripherally located right middle lobe consolidation, there is now some residual tree-in-bud opacity, axial image 31. Strandy opacity and pleural parenchymal densities peripheral left base suggesting scarring. Visualized upper abdomen shows no gross abnormality. Bones: Endplate spondylosis lower thoracic spine. Degenerative changes at both shoulders. IMPRESSION: 1. MODERATE COPD WITH ADDITIONAL INTERSTITIAL FIBROTIC CHANGES AT THE LOWER LUNGS. SUSPECT PLEURAL PA RENCHYMAL SCARRING AT THE LEFT BASE. 2. PERSISTENT BUT SLIGHTLY SMALLER CENTRAL RIGHT MIDDLE LOBE OPACITY ALONG THE FISSURES. THIS MEASURE S 5.3 X 3.0 CM VERSUS 6.0 X 4.3 CM, PREVIOUSLY. IF THERE WAS A PRIOR PNEUMONIA HERE, A LARGE AREA OF SCARRING IS POSSIBLE. HOWEVER, WE NOTE A SPICULATED AREA ALONG THE SUPERIOR MARGIN OF THIS OPACITY ME ASURING 1.6 CM VERSUS 1.2 CM, PREVIOUSLY. AN EARLY LUNG CANCER IS DIFFICULT TO EXCLUDE HERE. CONSIDER PET CT EVALUATION. A 1 CM RIGHT BASILAR PULMONARY NODULE IS SLIGHTLY LARGER FROM 8 MM AND SHOULD ALS O BE REASSESSED ON PET/CT OR FOLLOW-UP. 3. SOME MORE PERIPHERALLY ORIENTED RIGHT MIDDLE LOBE PNEUMONITIS ON THE PRIOR EXAM SHOWS IMPROVEMENT WITH RESIDUAL TREE-IN-BUD OPACITIES NOW. 4. MEDIASTINAL LYMPHADENOPATHY OVERALL SIMILAR MEASURING UP TO 1.2 CM. 5. CAD AND PULMONARY ARTERY HYPERTENSION.
== END ==
LOC: RADCTMAIN 06:33
PROVIDERS: ATTEND Internal Medicine
DX: J44.9 Chronic obstructive pulmonary disease, unspecified (principal); R91.8 Other nonspecific abnormal finding of lung field; I27.21 Secondary pulmonary arterial hypertension; I25.10 Atherosclerotic heart disease of native coronary artery without angina pectoris; R59.0 Localized enlarged lymph nodes
CPT/HCPCS: 36415; 71250; 82565; 84520

== ENCOUNTER 2018-06-16 03:08 | Inpatient (IN) | payer MEDICARE, OTHER ==
[2018-06-16] MEDS ORDERED: IPRATROPIUM-ALBUTEROL 3 ML NEB INHALATION STA (03:31)
--- NOTE | 2018-06-16 03:57 | ED ---
SOB HPI - General Source: patient, family, RN notes reviewed, old records reviewed Mode of arrival: wheelchair Limitations: no limitations <Nicole Sweeney - Last Filed: 06/16/18 14:41> <Patricia Gonzalez - Last Filed: 06/21/18 03:57> - General Chief Complaint: Shortness of Breath Stated Complaint: SOB Time Seen by Provider: 06/16/18 03:22 - History of Present Illness Initial Comments: Patient is a 82-year-old male with a history of 2 days of difficulty in breathing and increased coughing. Patient reports that he hasn't followed by Dr. Brunner regards to spots on his lungs. He has had no biopsies to confirm cancer. Patient reports that he has no pain. He does not typically wear oxygen. Patient has had no fevers or chills. He denies any abdominal pain, nausea or vomiting. Patient has an extensive past medical history. COPD, diabetes, acid reflux. He has had a history of heart catheterizations. ( Nicole Sweeney) - Related Data Home Medications Medication Instructions Recorded Confirmed Omeprazole [PriLOSEC] 20 mg PO DAILY 06/11/14 06/16/18 Simvastatin [Zocor] 40 mg PO HS 06/11/14 06/16/18 Hydrocodone/Acetaminophen [Eckerty 1 tab PO DAILY PRN 10/12/15 06/16/18 7.5-325] Ipratropium-Albuterol Nebulize 3 ml INHALATION RT-QID PRN 08/10/17 06/16/18 [Duoneb 0.5 mg-3 mg/3 ml Soln] Furosemide [Lasix] 40 mg PO BID 10/16/17 06/16/18 Gabapentin [Neurontin] 300 mg PO TID 10/16/17 06/16/18 Metoprolol Tartrate [Lopressor] 50 mg PO BID 10/16/17 06/16/18 Repaglinide 1 mg PO TID 10/16/17 06/16/18 Aspirin [Adult Low Dose Aspirin EC] 81 mg PO DAILY 06/16/18 06/16/18 Pioglitazone [Actos] 30 mg PO DAILY 06/16/18 06/16/18 Previous Rx's Medication Instructions Recorded Clopidogrel [Plavix] 75 mg PO DAILY #90 tab 08/17/17 Nitroglycerin Sl Tabs [Nitrostat] 0.4 mg SUBLINGUAL Q5M PRN #25 tab 08/17/17 Budesonide-Formot 160-4.5 Mcg 2 puff INHALATION RT-BID puff 06/17/18 [Symbicort 160-4.5 Mcg Inhaler] Ipratropium-Albuterol Nebulize 3 ml INHALATION RT-QID ampul.neb 06/17/18 [Duoneb 0.5 mg-3 mg/3 ml Soln] Allergies Allergy/AdvReac Type Severity Reaction Status Date / Time No Known Allergies Allergy Verified 06/16/18 08:15 Review of Systems ROS Other: All systems not noted in ROS Statement are negative. <Nicole Sweeney - Last Filed: 06/16/18 14:41> ROS Other: All systems not noted in ROS Statement are negative. <Patricia Gonzalez - Last Filed: 06/21/18 03:57> ROS Statement: Those systems with pertinent positive or pertinent negative responses have been documented in the HPI. Past Medical History Past Medical History: COPD, Diabetes Mellitus, GERD/Reflux, Myocardial Infarction (MS) Additional Past Medical History / Comment(s): SEE DR WAY'S H&P, NEUROPATHY FEET, MS Last Myocardial Infarction Date:: 2015 History of Any Multi-Drug Resistant Organisms: None Reported Past Surgical History: Heart Catheterization, Heart Catheterization With Stent, Tonsillectomy Additional Past Surgical History / Comment(s): EGD, COLONOSCOPY Past Anesthesia/Blood Transfusion Reactions: No Reported Reaction Date of Last Stent Placement:: 2015 Past Psychological History: No Psychological Hx Reported Smoking Status: Former smoker Past Alcohol Use History: None Reported Past Drug Use History: None Reported - Past Family History Father Family Medical History: Cancer Mother Family Medical History: No Reported History <Nicole Sweeney - Last Filed: 06/16/18 14:41> General Exam Limitations: no limitations General appearance: alert, in no apparent distress Head exam: Present: atraumatic, normocephalic, normal inspection Eye exam: Present: normal appearance, PERRL, EOMI. Absent: scleral icterus, conjunctival injection, periorbital swelling ENT exam: Present: normal exam, mucous membranes moist Neck exam: Present: normal inspection. Absent: tenderness, meningismus, lymphadenopathy Respiratory exam: Present: decreased breath sounds (bilaterally). Absent: normal lung sounds bilaterally, respiratory distress, wheezes, rales, rhonchi, stridor Cardiovascular Exam: Present: regular rate, normal rhythm, normal heart sounds. Absent: systolic murmur, diastolic murmur, rubs, gallop, clicks GI/Abdominal exam: Present: soft, normal bowel sounds. Absent: distended, tenderness, guarding, rebound, rigid Extremities exam: Present: normal inspection, full ROM, normal capillary refill. Absent: tenderness, pedal edema, joint swelling, calf tenderness Back exam: Present: normal inspection Neurological exam: Present: alert, oriented X3, CN II-XII intact Psychiatric exam: Present: normal affect, normal mood Skin exam: Present: warm, dry, intact, normal color. Absent: rash <Nicole Sweeney - Last Filed: 06/16/18 14:41> <Patricia Gonzalez - Last Filed: 06/21/18 03:57> - General Exam Comments Initial Comments: 82-year-old male. Alert and oriented. Patient appears in no acute distress. He is placed on 3 L of oxygen upon arrival. Oxygen saturation 93-92% on room air. Blood pressure was low on initial evaluation 88/53. (Nicole Sweeney) Vital Signs 06/16/18 06/16/18 06/16/18 03:12 03:19 03:20 Temperature 98.3 F Pulse Rate 71 Respiratory 22 Rate Blood Pressure 99/59 O2 Sat by Pulse 91 L 84 L 92 L Oximetry 06/16/18 06/16/18 06/16/18 03:30 03:40 03:47 Temperature Pulse Rate 69 77 70 Respiratory 34 H 21 Rate Blood Pressure 83/45 80/53 O2 Sat by Pulse 95 92 L Oximetry 06/16/18 06/16/18 06/16/18 03:50 04:00 04:10 Temperature 98.3 F Pulse Rate 71 78 Respiratory 26 H 29 H Rate Blood Pressure 80/51 90/50 86/51 O2 Sat by Pulse 93 L 93 L Oximetry 06/16/18 06/16/18 06/16/18 04:30 04:40 05:00 Temperature 97.4 F L Pulse Rate 72 69 61 Respiratory 23 19 24 Rate Blood Pressure 86/51 90/55 81/59 O2 Sat by Pulse 94 L 94 L 97 Oximetry 06/16/18 06/16/18 06/16/18 05:10 05:33 05:40 Temperature Pulse Rate 64 65 68 Respiratory 9 L 21 14 Rate Blood Pressure 85/53 103/53 86/45 O2 Sat by Pulse 95 97 97 Oximetry 06/16/18 06/16/18 06/16/18 05:50 06:10 06:20 Temperature Pulse Rate 60 70 63 Respiratory 6 L Rate Blood Pressure 86/45 83/46 83/46 O2 Sat by Pulse 97 96 94 L Oximetry 06/16/18 06/16/18 06/16/18 06:30 06:31 06:52 Temperature Pulse Rate 63 63 Respiratory 13 18 18 Rate Blood Pressure 83/46 92/57 94/50 O2 Sat by Pulse 97 96 93 L Oximetry 06/16/18 06/16/18 06/16/18 07:00 08:00 09:00 Temperature Pulse Rate 57 L 60 67 Respiratory 18 22 18 Rate Blood Pressure 94/50 94/61 111/56 O2 Sat by Pulse 96 96 96 Oximetry 06/16/18 06/16/18 10:10 10:35 Temperature 98.7 F Pulse Rate 57 L 64 Respiratory 18 18 Rate Blood Pressure 108/55 105/69 O2 Sat by Pulse 97 98 Oximetry Medical Decision Making - Lab Data Result diagrams: 06/16/18 03:52 06/16/18 03:52 - Radiology Data Radiology results: report reviewed <Nicole Sweeney - Last Filed: 06/16/18 14:41> - Lab Data Result diagrams: 06/17/18 05:51 06/17/18 05:51 <Patricia Gonzalez - Last Filed: 06/21/18 03:57> - Medical Decision Making Patient is an 82-year-old male with 2 days of progressive shortness of breath. Patient arrives to emergency department with a low blood pressure, 86/50. She was placed on 3 L of oxygen and oxygen saturations have been 90-93% on room air. Lung sounds are generally diminished.This chest x-ray shows bilateral patchy scarring and atelectasis. No significant change from previous exams. No significant wheezing. He has no significant leg swelling this with his previous heart failure exacerbations. Patient states he is following Dr. Cortés in regards to suspicious nodules in his lung. Patient does have a mildly elevated d-dimer at this time 0.81. Troponin is negative. EKG was negative for any significant changes. Patient was informed of all these results. At this time discussed with the Patient 1 dose of Lovenox to cover for PE with mild elevated DDimer. Patint cannot have CT chest with contrast due to decreased renal function. His hemoglobin has had some mild decreased since July of this are. He was previously 12.8 now 11.4. He denies any rectal bleeding. Patient informed likely need a VQ scan in the morning. Asians case discussed with Dr. Gonzalez, who will discuss the case with Dr. Del Real. ( Nicole Sweeney) I personally saw and examined the patient. I reviewed and agree with the mid- level provider findings including all diagnostic interpretations and treatment plans as written unless otherwise stated. I was present for moore portions of any procedures performed. I agree with plan for admission, patient care was discussed with Dr. Parra who agrees with workup as ordered, Lovenox pending VQ scan, admission for further workup. (Patricia Gonzalez) - Lab Data Lab Results 06/16/18 06/16/18 06/16/18 Range/Units 03:52 03:52 03:52 WBC 10.5 (3.8-10.6) k/uL RBC 4.57 (4.30-5.90) m/uL Hgb 11.5 L (13.0-17.5) gm/dL Hct 36.7 L (39.0-53.0) % MCV 80.3 (80.0-100.0) fL MCH 25.1 (25.0-35.0) pg MCHC 31.3 (31.0-37.0) g/dL RDW 16.5 H (11.5-15.5) % Plt Count 184 (150-450) k/uL Neutrophils % 89 % Lymphocytes % 4 % Monocytes % 4 % Eosinophils % 2 % Basophils % 0 % Neutrophils # 9.4 H (1.3-7.7) k/uL Lymphocytes # 0.4 L (1.0-4.8) k/uL Monocytes # 0.5 (0-1.0) k/uL Eosinophils # 0.2 (0-0.7) k/uL Basophils # 0.0 (0-0.2) k/uL Anisocytosis Slight PT (9.0-12.0) sec INR (<1.2) APTT (22.0-30.0) sec D-Dimer (<0.60) mg/L FEU Sodium 140 (137-145) mmol/L Potassium 4.5 (3.5-5.1) mmol/L Chloride 106 (98-107) mmol/L Carbon Dioxide 24 (22-30) mmol/L Anion Gap 10 mmol/L BUN 45 H (9-20) mg/dL Creatinine 2.14 H (0.66-1.25) mg/dL Est GFR (CKD-EPI)AfAm 33 (>60 ml/min/1.73 sqM) Est GFR (CKD-EPI)NonAf 28 (>60 ml/min/1.73 sqM) Glucose 132 H (74-99) mg/dL Estimated Ave Glu mg/dL Hemoglobin A1c (4.0-6.0) % Plasma Lactic Acid Chang 1.6 (0.7-2.0) mmol/L Calcium 8.5 (8.4-10.2) mg/dL Total Bilirubin 0.4 (0.2-1.3) mg/dL AST 23 (17-59) U/L ALT 25 (21-72) U/L Alkaline Phosphatase 77 (38-126) U/L Troponin I (0.000-0.034) ng/mL NT-Pro-B Natriuret Pep pg/mL Total Protein 7.3 (6.3-8.2) g/dL Albumin 3.7 (3.5-5.0) g/dL Influenza Type A RNA (Not Detectd) Influenza Type B (PCR) (Not Detectd) 06/16/18 06/16/18 06/16/18 Range/Units 03:52 03:52 03:52 WBC (3.8-10.6) k/uL RBC (4.30-5.90) m/uL Hgb (13.0-17.5) gm/dL Hct (39.0-53.0) % MCV (80.0-100.0) fL MCH (25.0-35.0) pg MCHC (31.0-37.0) g/dL RDW (11.5-15.5) % Plt Count (150-450) k/uL Neutrophils % % Lymphocytes % % Monocytes % % Eosinophils % % Basophils % % Neutrophils # (1.3-7.7) k/uL Lymphocytes # (1.0-4.8) k/uL Monocytes # (0-1.0) k/uL Eosinophils # (0-0.7) k/uL Basophils # (0-0.2) k/uL Anisocytosis PT 10.9 (9.0-12.0) sec INR 1.0 (<1.2) APTT 24.8 (22.0-30.0) sec D-Dimer 0.81 H (<0.60) mg/L FEU Sodium (137-145) mmol/L Potassium (3.5-5.1) mmol/L Chloride (98-107) mmol/L Carbon Dioxide (22-30) mmol/L Anion Gap mmol/L BUN (9-20) mg/dL Creatinine (0.66-1.25) mg/dL Est GFR (CKD-EPI)AfAm (>60 ml/min/1.73 sqM) Est GFR (CKD-EPI)NonAf (>60 ml/min/1.73 sqM) Glucose (74-99) mg/dL Estimated Ave Glu mg/dL Hemoglobin A1c (4.0-6.0) % Plasma Lactic Acid Chang (0.7-2.0) mmol/L Calcium (8.4-10.2) mg/dL Total Bilirubin (0.2-1.3) mg/dL AST (17-59) U/L ALT (21-72) U/L Alkaline Phosphatase (38-126) U/L Troponin I <0.012 (0.000-0.034) ng/mL NT-Pro-B Natriuret Pep pg/mL Total Protein (6.3-8.2) g/dL Albumin (3.5-5.0) g/dL Influenza Type A RNA (Not Detectd) Influenza Type B (PCR) (Not Detectd) 06/16/18 06/16/18 06/16/18 Range/Units 03:52 03:52 04:02 WBC (3.8-10.6) k/uL RBC (4.30-5.90) m/uL Hgb (13.0-17.5) gm/dL Hct (39.0-53.0) % MCV (80.0-100.0) fL MCH (25.0-35.0) pg MCHC (31.0-37.0) g/dL RDW (11.5-15.5) % Plt Count (150-450) k/uL Neutrophils % % Lymphocytes % % Monocytes % % Eosinophils % % Basophils % % Neutrophils # (1.3-7.7) k/uL Lymphocytes # (1.0-4.8) k/uL Monocytes # (0-1.0) k/uL Eosinophils # (0-0.7) k/uL Basophils # (0-0.2) k/uL Anisocytosis PT (9.0-12.0) sec INR (<1.2) APTT (22.0-30.0) sec D-Dimer (<0.60) mg/L FEU Sodium (137-145) mmol/L Potassium (3.5-5.1) mmol/L Chloride (98-107) mmol/L Carbon Dioxide (22-30) mmol/L Anion Gap mmol/L BUN (9-20) mg/dL Creatinine (0.66-1.25) mg/dL Est GFR (CKD-EPI)AfAm (>60 ml/min/1.73 sqM) Est GFR (CKD-EPI)NonAf (>60 ml/min/1.73 sqM) Glucose (74-99) mg/dL Estimated Ave Glu mg/dL 220 Hemoglobin A1c 9.3 H (4.0-6.0) % Plasma Lactic Acid Chang (0.7-2.0) mmol/L Calcium (8.4-10.2) mg/dL Total Bilirubin (0.2-1.3) mg/dL AST (17-59) U/L ALT (21-72) U/L Alkaline Phosphatase (38-126) U/L Troponin I (0.000-0.034) ng/mL NT-Pro-B Natriuret Pep 878 pg/mL Total Protein (6.3-8.2) g/dL Albumin (3.5-5.0) g/dL Influenza Type A RNA Not Detected (Not Detectd) Influenza Type B (PCR) Not Detected (Not Detectd) 06/16/18 04:47 EKG performed at 3:27 AM shows sinus rhythm with frequent PVCs. Global distress. Cannot rule out inferior infarct. Ventricular rate of 75 bpm. KS interval is 198 ms. QRS duration 76 ms. QT QTc is 378/422 ms. (Nicole Sweeney ) - Radiology Data Chest x-ray shows bilateral patchy scarring and her left atelectasis of the lungs without significant change compared old exam. No heart failure seen. ( Nicole Sweeney) Disposition Is patient prescribed a controlled substance at d/c from ED?: No Time of Disposition: 05:05 <Nicole Sweeney - Last Filed: 06/16/18 14:41> <Patricia Gonzalez - Last Filed: 06/21/18 03:57> Clinical Impression: Renal failure, Hypoxia, Hypotension Disposition: ADMITTED IP TO THIS HOSP Condition: Stable
[2018-06-16] MEDS: SODIUM CHLORIDE 0.9% 500 ML 500 ML IV SCH (03:59)
[2018-06-16] MEDS: SODIUM CHLORIDE 0.9% 1,000 ML IV SCH ×3 (04:00→20:15)
[2018-06-16 04:08] LABS: Anisocytosis Slight; Basophils % (A) 0 %; Eosinophils # (A) 0.2 k/uL (0-0.7); Eosinophils % (A) 2 %; HCT 36.7 % (39.0-53.0); HGB 11.5 gm/dL (13.0-17.5); Lymphocytes # (A) 0.4 k/uL (1.0-4.8); Lymphocytes % (A) 4 %; MCH 25.1 pg (25.0-35.0); MCHC 31.3 g/dL (31.0-37.0); MCV 80.3 fL (80.0-100.0); Mean Platelet Volume 8.5; Monocytes # (A) 0.5 k/uL (0-1.0); Monocytes % (A) 4 %; Neutrophils # (A) 9.4 k/uL (1.3-7.7); Neutrophils % (A) 89 %; Platelet Count 184 k/uL (150-450); RBC 4.57 m/uL (4.30-5.90); RDW 16.5 % (11.5-15.5); WBC 10.5 k/uL (3.8-10.6)
[2018-06-16 04:17] LABS: Albumin 3.7 g/dL (3.5-5.0); Calcium 8.5 mg/dL (8.4-10.2); Partial Thromboplastin Time 24.8 sec (22.0-30.0); Potassium 4.5 mmol/L (3.5-5.1); Prothrombin Time 10.9 sec (9.0-12.0); Total Bilirubin 0.4 mg/dL (0.2-1.3); Total Protein 7.3 g/dL (6.3-8.2)
--- NOTE | 2018-06-16 04:18 | XR ---
EXAMINATION TYPE: XR chest 2V DATE OF EXAM: 06/16/2018 COMPARISON: 04/13/2018 HISTORY: Short of breath TECHNIQUE: Frontal and lateral views of the chest are obtained. FINDINGS: There is no heart failure. There is patchy atelectasis in both lungs. Heart size is normal . There are chest leads. IMPRESSION: Bilateral patchy scarring and atelectasis in the lungs without significant change compar ed to old exam. No heart failure seen.
[2018-06-16] MEDS ORDERED: ENOXAPARIN 120 MG/0.8 ML SYRINGE SQ STA (04:55)
[2018-06-16] MEDS ORDERED: NALOXONE 0.4 MG/ML 1 ML VIAL IV PRN (05:06)
[2018-06-16] MEDS ORDERED: ACETAMINOPHEN TAB 325 MG TAB PO PRN (05:06)
[2018-06-16] MEDS ORDERED: oxyCODONE-APAP 5-325MG 1 EACH TAB PO PRN (05:06)
[2018-06-16] MEDS ORDERED: IBUPROFEN 400 MG TAB PO PRN (05:06)
[2018-06-16] MEDS ORDERED: ONDANSETRON 4 MG/2 ML VIAL IVP PRN (05:06)
--- NOTE | 2018-06-16 10:08 | NM ---
EXAMINATION TYPE: NM pul vent and perfuse DATE OF EXAM: 06/16/2018 COMPARISON: Chest radiograph of the same date. HISTORY: Shortness of breath and hypoxia TECHNIQUE: Utilizing inhalation of 36.1 mCi Tc 99m DTPA aerosol and intravenous injection of 5.07 mC i of Tc 99m MAA, ventilation and perfusion images are acquired post injection in multiple projections . FINDINGS: Radiotracer clumping is seen on the ventilation images with patchy radiotracer distribution throughou t likely on the basis of the patient's known fibrosis and COPD. However on the perfusion images there are multiple small perfusion defects with associated radiographic abnormalities in comparison with t he chest radiograph of 06/16/2018. IMPRESSION: Intermediate probability for pulmonary embolus. There are multiple small perfusion defects throughout the lungs although there are corresponding linear radiographic opacities. Radiographically there are suspicion for right lower lung pneumonia. Additionally ventilation images are limited by underlying COPD and pulmonary fibrosis with radiotracer clumping throughout the exam.
[2018-06-16] MEDS: PANTOPRAZOLE 40 MG/10 ML VIAL IV SCH (10:32)
[2018-06-16 12:00] LABS: Glucose,Whole Blood 147 mg/dL (75-99)
[2018-06-16] MEDS ORDERED: HYDROcodone/APAP 7.5-325MG 1 EACH TAB PO PRN (12:41)
--- NOTE | 2018-06-16 15:53 | P.CNPUL ---
History of Present Illness Consult date: 06/16/18 Requesting physician: Miguel Parra Reason for consult: dyspnea Chief complaint: Shortness of breath History of present illness: This is a very pleasant 82-year-old gentleman who follows with Dr. Miguel Parra as his primary care physician. He has a history of gastric esophageal reflux disease, diabetes mellitus, hypothyroidism, hyperlipidemia, coronary artery disease with previous stent placement, peripheral neuropathy. He also has a history of chronic tobacco dependence and COPD along with pulmonary nodules and follows with Dr. Cortés in our office for the same. He presented to the emergency room early this morning with complaints of increasing shortness of breath over the past several days. Chest x-ray shows evidence of pseudotumor in the right midlung. There is bilateral patchy scarring and atelectasis as well. VQ scan was was performed and was intermediate probability for pulmonary embolus. There is multiple small perfusion defects felt the lungs corresponding with linear radiographic opacities. There is suspicion for a right lower lung pneumonia. Addition of ventilation images are limited by underlying COPD and pulmonary fibrosis. He has been afebrile. Maintaining O2 saturations in the mid 90s on room air. Hemodynamic stable. White count 10.5. Hemoglobin 11.5. Creatinine 2.14. BNP 878. Troponin negative. Influenza screen negative. He has been initiated on DuoNeb inhalations , Symbicort, IV Solu-Medrol. He is seen today in consultation on the regular cardiac floor. He is awake and alert in no acute distress. No worsening cough or congestion. No chills or night sweats. Review of Systems 14 point review of systems was reviewed. All negative other than as mentioned in HPI P Past Medical History Past Medical History: COPD, Diabetes Mellitus, GERD/Reflux, Myocardial Infarction ([place]) Additional Past Medical History / Comment(s): SEE DR WAY'S H&P, NEUROPATHY FEET, [place] Last Myocardial Infarction Date:: 2015 History of Any Multi-Drug Resistant Organisms: None Reported Past Surgical History: Heart Catheterization, Heart Catheterization With Stent, Tonsillectomy Additional Past Surgical History / Comment(s): EGD, COLONOSCOPY Past Anesthesia/Blood Transfusion Reactions: No Reported Reaction Date of Last Stent Placement:: 2015 Past Psychological History: No Psychological Hx Reported Smoking Status: Former smoker Past Alcohol Use History: None Reported Past Drug Use History: None Reported - Past Family History Father Family Medical History: Cancer Additional Family Medical History / Comment(s): Father had bone cancer. He at the age of 80yrs. Mother Family Medical History: No Reported History Additional Family Medical History / Comment(s): Mother was healthy and lived to be 82 yrs old. Medications and Allergies Home Medications Medication Instructions Recorded Confirmed Type Omeprazole [PriLOSEC] 20 mg PO DAILY 06/11/14 06/16/18 History Simvastatin [Zocor] 40 mg PO HS 06/11/14 06/16/18 History Hydrocodone/Acetaminophen [[place] 1 tab PO DAILY PRN 10/12/15 06/16/18 History 7.5-325] Ipratropium-Albuterol Nebulize 3 ml INHALATION RT-QID PRN 08/10/17 06/16/18 History [Duoneb 0.5 mg-3 mg/3 ml Soln] Clopidogrel [Plavix] 75 mg PO DAILY #90 tab 08/17/17 06/16/18 Rx Nitroglycerin Sl Tabs [Nitrostat] 0.4 mg SUBLINGUAL Q5M PRN #25 tab 08/17/17 Rx Furosemide [Lasix] 40 mg PO BID 10/16/17 06/16/18 History Gabapentin [Neurontin] 300 mg PO TID 10/16/17 06/16/18 History Metoprolol Tartrate [Lopressor] 50 mg PO BID 10/16/17 06/16/18 History Repaglinide 1 mg PO TID 10/16/17 06/16/18 History Aspirin [Adult Low Dose Aspirin EC] 81 mg PO DAILY 06/16/18 06/16/18 History Pioglitazone [Actos] 30 mg PO DAILY 06/16/18 06/16/18 History Allergies Allergy/AdvReac Type Severity Reaction Status Date / Time No Known Allergies Allergy Verified 06/16/18 08:15 Physical Exam Vitals: Vital Signs Temp Pulse Pulse Resp BP BP Pulse Ox 06/16/18 11:33 98.1 F 64 18 108/54 95 06/16/18 10:35 98.7 F 64 18 105/69 98 06/16/18 10:10 57 L 18 108/55 97 06/16/18 09:00 67 18 111/56 96 06/16/18 08:00 60 22 94/61 96 06/16/18 07:00 57 L 18 94/50 96 06/16/18 06:52 63 18 94/50 93 L 06/16/18 06:31 63 18 92/57 96 06/16/18 06:30 13 83/46 97 06/16/18 06:20 63 83/46 94 L 06/16/18 06:10 70 83/46 96 06/16/18 05:50 60 6 L 86/45 97 06/16/18 05:40 68 14 86/45 97 06/16/18 05:33 65 21 103/53 97 06/16/18 05:10 64 9 L 85/53 95 06/16/18 05:00 97.4 F L 61 24 81/59 97 06/16/18 04:40 69 19 90/55 94 L 06/16/18 04:30 72 23 86/51 94 L 06/16/18 04:10 86/51 06/16/18 04:00 78 29 H 90/50 93 L 06/16/18 03:50 98.3 F 71 26 H 80/51 93 L 06/16/18 03:47 70 06/16/18 03:40 77 21 80/53 92 L 06/16/18 03:30 69 34 H 83/45 95 06/16/18 03:20 92 L 06/16/18 03:19 84 L 06/16/18 03:12 98.3 F 71 22 99/59 91 L Intake and Output 06/16/18 06/16/18 06/16/18 06:59 14:59 22:59 Other: Weight 116.12 kg - Constitutional General appearance: morbidly obese, no acute distress - EENT Eyes: EOMI, PERRLA ENT: hearing grossly normal Ears: bilateral: normal - Neck Neck: normal ROM Carotids: bilateral: upstroke normal Thyroid: bilateral: normal size - Respiratory Respiratory: bilateral: rales - Cardiovascular Rhythm: regular Heart sounds: normal: S1, S2 - Gastrointestinal General gastrointestinal: normal bowel sounds - Integumentary Integumentary: normal turgor - Neurologic Neurologic: CNII-XII intact - Musculoskeletal Musculoskeletal: generalized weakness - Psychiatric Psychiatric: A&O x's 3, appropriate affect, intact judgment & insight Results - Laboratory Findings CBC and BMP: 06/16/18 03:52 06/16/18 03:52 PT/INR, D-dimer PT 10.9 sec (9.0-12.0) 06/16/18 03:52 INR 1.0 (<1.2) 06/16/18 03:52 D-Dimer 0.81 mg/L FEU (<0.60) H 06/16/18 03:52 Abnormal lab findings: Abnormal Labs 06/16/18 06/16/18 06/16/18 03:52 03:52 03:52 Hgb 11.5 L Hct 36.7 L RDW 16.5 H Neutrophils # 9.4 H Lymphocytes # 0.4 L D-Dimer 0.81 H BUN 45 H Creatinine 2.14 H Glucose 132 H POC Glucose (mg/dL) 06/16/18 11:36 Hgb Hct RDW Neutrophils # Lymphocytes # D-Dimer BUN Creatinine Glucose POC Glucose (mg/dL) 147 H - Diagnostic Findings Chest x-ray: image reviewed Assessment and Plan Assessment: Impression: #1 Dyspnea secondary to an acute exacerbation of chronic obstructive pulmonary disease and suspected pulmonary fibrosis. No clear evidence of pneumonia. Influenza screen negative. #2 History of central right middle lobe opacity noted on previous CT scans. Suspect pseudotumor versus scarring. There is also a spiculated area along the superior margin of this opacity measuring 1.6 cm versus 1.2 cm previously noted on a CAT scan. Followed up in the outpatient setting. #3 Diabetes mellitus. #4 Diabetic neuropathy. #5 Gastroesophageal reflux disease. #6 Coronary artery disease with previous stent placement. #7 Hypothyroidism. #8 Hyperlipidemia. Plan: The patient was seen and evaluated by Dr. Clayton. Chest x-ray VQ scan and labs were all reviewed. No clear evidence of pneumonia. We'll treat him for his COPD exacerbation. Continue DuoNeb inhalations, Symbicort, IV Solu-Medrol. Heparin for DVT prophylaxis. Protonix for GI prophylaxis. We'll continue to follow and make further recommendations based on his clinical status. I, the cosigning physician, performed a history & physical examination of the patient. Lungs sounds are coarse crackles in the posterior bases. Maintaining good O2 saturations in the 90s on room air. I discussed the assessment and plan of care with my nurse practitioner, Yesica Vanegas. I attest to the above consultation as dictated by her. Time with Patient: Greater than 30
[2018-06-16] MEDS: IPRATROPIUM-ALBUTEROL 3 ML NEB INHALATION SCH ×2 (16:29→20:44)
[2018-06-16 16:49] LABS: Glucose,Whole Blood 170 mg/dL (75-99)
[2018-06-16] MEDS: INSULIN ASPART 100 UNIT/ML 1 ML 10 ML VIAL SQ SCH ×2 (17:21→20:15)
[2018-06-16] MEDS: methylPREDNISolone SOD SUCCI 125 MG/2 ML VIAL IV SCH ×2 (17:27→22:51)
--- NOTE | 2018-06-16 17:53 | CONS ---
CONSULTATION Miguel Grace is an obese a gentleman with history of hypertension, type 2 diabetes and hyperlipidemia who also has underlying COPD and sees Dr. Zamudio and Dr. Cortés on a regular basis. He came into the hospital mainly with complaints of increasing shortness of breath of about 2-3 days' duration. He also has underlying renal failure. His creatinine is in the range of 2.1 to 2.2 and he has diabetes. He had an elevated D- dimer on arrival, but the V/Q scan is of intermediate probability and probably not suggestive of pulmonary embolism. His main complaint when he came in was increasing shortness of breath. After arrival he feels somewhat better, denies chest pain, and he is resting comfortably at the time of my evaluation. His BNP level is normal and clinically patient is not in heart failure. PAST MEDICAL HISTORY: This is remarkable for: 1. Type 2 diabetes mellitus with CKD and creatinine in the range of 2.1 to 2.2. 2. Probable COPD. He also sees Dr. Cortés. There is an issue of some pulmonary fibrosis as well. 3. Hyperlipidemia. 4. Hypothyroidism. 5. Type 2 diabetes mellitus, insulin-requiring. 6. Hypertension. 7. Hyperlipidemia. 8. CAD with prior percutaneous coronary intervention of mid circumflex performed in July of 2017. Since then he has done well, without any anginal symptoms. Since arrival, his shortness of breath seems to have improved. MEDICATIONS: Medications at home include: 1. Zocor 40 mg daily. 2. Actos 30 mg daily. 3. Metoprolol tartrate 50 mg b.i.d. 4. Plavix 75 mg daily. 5. Aspirin 81 mg daily. 6. Lasix 40 mg daily. ALLERGIES: NONE. REVIEW OF SYSTEMS: Unremarkable other than above-mentioned facts. PHYSICAL EXAMINATION: Blood pressure is 110/70. Pulse rate is 64 per minute, regular. HEENT unremarkable. Fundus was not examined by me. Neck is supple. There is no JVD. I do not hear a carotid bruit. Heart exam reveals S1, S2 with a short systolic murmur at the base. Lungs revealed decent air entry with some scattered rhonchi. Abdomen is soft, nontender. Lower extremities reveal diminished pulses, mild edema bilaterally. Central nervous system grossly within normal limits. EKG revealed a sinus mechanism, isolated PVCs, no acute changes, nonspecific ST abnormality. LABORATORY DATA: Initial troponin is normal. BNP is normal. V/Q scan is very equivocal and not suggestive of any clear-cut pulmonary embolism. IMPRESSION: 1. Exacerbation of chronic obstructive pulmonary disease. Rule out any underlying pulmonary fibrosis. 2. Coronary artery disease with prior percutaneous coronary intervention. This hospitalization does not suggest any myocardial ischemia and there is no heart failure. 3. Obesity. 4. Type 2 diabetes with chronic kidney disease. RECOMMENDATIONS: I am recommending that we check additional troponin. We can resume all his home medications, put him on subcutaneous heparin 5000 q.8 hours, and aspirin, Plavix, Lopressor and Lipitor will be resumed. I discussed my thoughts in detail with the patient. Thank you very much for the consult. KASHMIR / KAYLEYN: [id number] /
[2018-06-16 20:11] LABS: Appearance,Urine Clear (Clear); Bilirubin,Urine Negative (Negative); Blood,Urine Negative (Negative); Color,Urine Yellow; Glucose,Urine (UA) Negative (Negative); Ketones,Urine Negative (Negative); Leukocyte Esterase,Urine Small (Negative); Mucus,Urine Rare /hpf; Nitrite,Urine Negative (Negative); PH, Urine 5.5 (5.0-8.0); Protein,Urine Trace (Negative); RBC,Urine 2 /hpf (0-5); Specific Gravity,Urine 1.012 (1.001-1.035); Squamous Epithelial Cell,Urine 1 /hpf (0-4); Urobilinogen,Urine <2.0 mg/dL (<2.0); WBC,Urine 7 /hpf (0-5)
[2018-06-16] MEDS: METOPROLOL TARTRATE 50 MG TAB PO SCH (20:15)
[2018-06-16] MEDS: HEPARIN SODIUM,PORCINE 5,000 UNIT/ML 1 ML VIAL SQ SCH (20:15)
[2018-06-16 20:20] LABS: Glucose,Whole Blood 165 mg/dL (75-99)
[2018-06-16] MEDS: SYMBICORT 160-4.5 MCG INHALER INHALATION SCH (20:45)
[2018-06-16] MEDS: HYDROcodone/APAP 5-325MG 1 EACH TAB PO PRN (21:12)
[2018-06-17 02:53] LABS: Hemoglobin A1C 9.3 % (4.0-6.0)
[2018-06-17] MEDS: HEPARIN SODIUM,PORCINE 5,000 UNIT/ML 1 ML VIAL SQ SCH ×2 (05:11→12:39)
[2018-06-17] MEDS: methylPREDNISolone SOD SUCCI 125 MG/2 ML VIAL IV SCH ×2 (06:19→12:39)
[2018-06-17] MEDS: INSULIN ASPART 100 UNIT/ML 1 ML 10 ML VIAL SQ SCH ×2 (06:23→12:41)
[2018-06-17 06:25] LABS: Glucose,Whole Blood 219 mg/dL (75-99)
[2018-06-17 06:51] LABS: Anisocytosis Slight; Basophils % (A) 0 %; Eosinophils % (A) 1 %; HCT 38.4 % (39.0-53.0); HGB 11.5 gm/dL (13.0-17.5); Hypochromasia Moderate; Lymphocytes # (A) 0.5 k/uL (1.0-4.8); Lymphocytes % (A) 8 %; MCH 25.1 pg (25.0-35.0); MCHC 29.9 g/dL (31.0-37.0); Mean Platelet Volume 6.6; Monocytes # (A) 0.1 k/uL (0-1.0); Monocytes % (A) 1 %; Neutrophils # (A) 5.5 k/uL (1.3-7.7); Neutrophils % (A) 89 %; Platelet Count 156 k/uL (150-450); RBC 4.57 m/uL (4.30-5.90); RDW 16.3 % (11.5-15.5); WBC 6.1 k/uL (3.8-10.6)
[2018-06-17 06:59] LABS: Calcium 8.6 mg/dL (8.4-10.2); Potassium 4.8 mmol/L (3.5-5.1)
[2018-06-17] MEDS ORDERED: PIOGLITAZONE 30 MG TAB PO SCH (09:00)
[2018-06-17] MEDS ORDERED: ATORVASTATIN 40 MG TAB PO SCH (09:00)
[2018-06-17] MEDS ORDERED: FUROSEMIDE 40 MG TAB PO SCH (09:00)
[2018-06-17] MEDS ORDERED: ASPIRIN 81 MG PO SCH (09:00)
[2018-06-17] MEDS ORDERED: CLOPIDOGREL 75 MG TAB PO SCH (09:00)
[2018-06-17] MEDS: METOPROLOL TARTRATE 50 MG TAB PO SCH (09:24)
[2018-06-17] MEDS: PANTOPRAZOLE 40 MG/10 ML VIAL IV SCH (09:24)
[2018-06-17] MEDS: HYDROcodone/APAP 5-325MG 1 EACH TAB PO PRN (09:31)
[2018-06-17] MEDS: IPRATROPIUM-ALBUTEROL 3 ML NEB INHALATION SCH ×3 (09:35→16:27)
[2018-06-17] MEDS: SYMBICORT 160-4.5 MCG INHALER INHALATION SCH (09:35)
[2018-06-17 10:12] VITALS: BMI 36.7
[2018-06-17 12:11] LABS: Glucose,Whole Blood 215 mg/dL (75-99)
[2018-06-17] MEDS: SODIUM CHLORIDE 0.9% 1,000 ML IV SCH (12:39)
--- NOTE | 2018-06-17 13:48 | P.PN ---
Subjective Progress Note Date: 06/17/18 This is a pleasant 82-year-old gentleman who has a history of gastric esophageal reflux disease, diabetes mellitus, hypothyroidism, hyperlipidemia, chronic kidney disease coronary artery disease with previous stent placement, peripheral neuropathy. He also has a history of chronic tobacco dependence and COPD along with pulmonary nodules and follows with Dr. Cortés in our office for the same. He presented to the emergency room early this morning with complaints of increasing shortness of breath over the past several days. Chest x-ray shows evidence of pseudotumor in the right midlung. There is bilateral patchy scarring and atelectasis as well. VQ scan was was performed and was intermediate probability for pulmonary embolus. There is multiple small perfusion defects felt the lungs corresponding with linear radiographic opacities. There is suspicion for a right lower lung pneumonia which has essentially been ruled out by pulmonary. Patient was seen and examined today, overall he states that his breathing is significantly improved. Blood pressure this morning 148/80, heart rate in the 80s, 90% on room air. Blood cell count 6.1, hemoglobin 11.5, platelet count 156. Sodium 140, potassium 4.8, BUN 32 and creatinine 1.4. Objective - Vital Signs Vital signs: Vital Signs Temp 97.5 F L 06/17/18 08:36 Pulse 88 06/17/18 12:57 Resp 18 06/17/18 11:35 BP 148/80 06/17/18 11:34 Pulse Ox 90 L 06/17/18 11:34 Intake & Output 06/16/18 06/17/18 06/17/18 18:59 06:59 18:59 Intake Total 480 1300 20 Output Total 275 800 Balance 205 500 20 Weight 116.12 kg Intake: IV 820 20 Invasive Line 2 20 20 Sodium Chloride 0.9% 1, 800 000 ml @ 100 mls/hr IV . Q10H [facility] Rx#:[id number] Oral 480 480 Output: Urine 275 800 Other: # Voids 2 # Bowel Movements 1 - Exam PHYSICAL EXAMINATION: GENERAL: 82-year-old gentleman in no acute distress at the time of my examination HEENT: Head is atraumatic, normocephalic. Pupils equal, round. Sclera anicteric. Conjunctiva are clear. Mucous membranes of the mouth are moist. Neck is supple. There is no elevated jugular venous pressure.] bruit is heard. HEART EXAMINATION: Heart S1, S2 normal. No murmur or gallop heard. CHEST EXAMINATION: Lungs reveal fine crackles to bilateral bases. ABDOMEN: Soft, nontender. Bowel sounds are heard. No organomegaly noted. EXTREMITIES: 2+ peripheral pulses with no evidence of peripheral edema and no calf tenderness noted. NEUROLOGIC patient is awake, alert and oriented X3. . - Labs CBC & Chem 7: 06/17/18 05:51 06/17/18 05:51 Labs: Abnormal Lab Results - Last 24 Hours (Table) 06/16/18 06/16/18 06/16/18 Range/Units 03:52 16:38 19:00 Hgb (13.0-17.5) gm/dL Hct (39.0-53.0) % MCHC (31.0-37.0) g/dL RDW (11.5-15.5) % Lymphocytes # (1.0-4.8) k/uL Chloride (98-107) mmol/L Carbon Dioxide (22-30) mmol/L BUN (9-20) mg/dL Creatinine (0.66-1.25) mg/dL Glucose (74-99) mg/dL POC Glucose (mg/dL) 170 H (75-99) mg/dL Hemoglobin A1c 9.3 H (4.0-6.0) % Urine Protein Trace H (Negative) Ur Leukocyte Esterase Small H (Negative) Urine WBC 7 H (0-5) /hpf Urine Mucus Rare H (None) /hpf 06/16/18 06/17/18 06/17/18 Range/Units 20:09 05:51 05:51 Hgb 11.5 L (13.0-17.5) gm/dL Hct 38.4 L (39.0-53.0) % MCHC 29.9 L (31.0-37.0) g/dL RDW 16.3 H (11.5-15.5) % Lymphocytes # 0.5 L (1.0-4.8) k/uL Chloride 109 H (98-107) mmol/L Carbon Dioxide 21 L (22-30) mmol/L BUN 32 H (9-20) mg/dL Creatinine 1.44 H (0.66-1.25) mg/dL Glucose 221 H (74-99) mg/dL POC Glucose (mg/dL) 165 H (75-99) mg/dL Hemoglobin A1c (4.0-6.0) % Urine Protein (Negative) Ur Leukocyte Esterase (Negative) Urine WBC (0-5) /hpf Urine Mucus (None) /hpf 06/17/18 06/17/18 Range/Units 06:20 11:49 Hgb (13.0-17.5) gm/dL Hct (39.0-53.0) % MCHC (31.0-37.0) g/dL RDW (11.5-15.5) % Lymphocytes # (1.0-4.8) k/uL Chloride (98-107) mmol/L Carbon Dioxide (22-30) mmol/L BUN (9-20) mg/dL Creatinine (0.66-1.25) mg/dL Glucose (74-99) mg/dL POC Glucose (mg/dL) 219 H 215 H (75-99) mg/dL Hemoglobin A1c (4.0-6.0) % Urine Protein (Negative) Ur Leukocyte Esterase (Negative) Urine WBC (0-5) /hpf Urine Mucus (None) /hpf Microbiology - Last 24 Hours (Table) 06/16/18 03:52 Blood Culture - Preliminary Blood No Growth after 24 hours 06/16/18 19:00 Urine Culture - Preliminary Urine,Voided Assessment and Plan Plan: Assessment and plan #1 Dyspnea secondary to an acute exacerbation of chronic obstructive pulmonary disease and suspected pulmonary fibrosis. No clear evidence of pneumonia. Influenza screen negative. #2 History of central right middle lobe opacity noted on previous CT scans. Suspect pseudotumor versus scarring. There is also a spiculated area along the superior margin of this opacity measuring 1.6 cm versus 1.2 cm previously noted on a CAT scan. Followed up in the outpatient setting. #3 Diabetes mellitus. #4 Diabetic neuropathy. #5 Gastroesophageal reflux disease. #6 Coronary artery disease with previous stent placement. #7 Hypothyroidism. #8 Hyperlipidemia. Plan From cardiology's perspective, we'll recommend to continue the patient on his current medications. We will discuss with pulmonary the results of the VQ scan , patient is eager to be discharged home. If the patient in fact does have pulmonary embolism, he will need to be on anticoagulation. DNP note has been reviewed, I agree with a documented findings and plan of care. Patient was seen and examined.
--- NOTE | 2018-06-17 14:32 | P.PN ---
Subjective Progress Note Date: 06/17/18 Principal diagnosis: Acute exacerbation of chronic obstructive pulmonary disease with suspected pulmonary fibrosis. No clear evidence of pneumonia. This is a very pleasant 82-year-old gentleman who follows with Dr. Miguel Parra as his primary care physician. He has a history of gastric esophageal reflux disease, diabetes mellitus, hypothyroidism, hyperlipidemia, coronary artery disease with previous stent placement, peripheral neuropathy. He also has a history of chronic tobacco dependence and COPD along with pulmonary nodules and follows with Dr. Cortés in our office for the same. He presented to the emergency room early this morning with complaints of increasing shortness of breath over the past several days. Chest x-ray shows evidence of pseudotumor in the right midlung. There is bilateral patchy scarring and atelectasis as well. VQ scan was was performed and was intermediate probability for pulmonary embolus. There is multiple small perfusion defects felt the lungs corresponding with linear radiographic opacities. There is suspicion for a right lower lung pneumonia. Addition of ventilation images are limited by underlying COPD and pulmonary fibrosis. He has been afebrile. Maintaining O2 saturations in the mid 90s on room air. Hemodynamic stable. White count 10.5. Hemoglobin 11.5. Creatinine 2.14. BNP 878. Troponin negative. Influenza screen negative. He has been initiated on DuoNeb inhalations , Symbicort, IV Solu-Medrol. He is seen today in consultation on the regular cardiac floor. He is awake and alert in no acute distress. No worsening cough or congestion. No chills or night sweats. The patient is seen again today 06/17/2018 in follow-up on the cardiac floor. He is awake and alert in no acute distress. No worsening shortness of breath or congestion. He is maintaining O2 saturations in the low 90s on room air. He 's been afebrile. Hemodynamically stable. Blood and urine cultures reveal no growth. White count 6.1. Hemoglobin 11.5. Creatinine 1.44. He remains on DuoNeb inhalations, Symbicort, IV Solu-Medrol. Objective - Vital Signs Vital signs: Vital Signs Temp 97.5 F L 06/17/18 08:36 Pulse 88 06/17/18 12:57 Resp 18 06/17/18 11:35 BP 148/80 06/17/18 11:34 Pulse Ox 90 L 06/17/18 11:34 Intake & Output 06/16/18 06/17/18 06/17/18 18:59 06:59 18:59 Intake Total 480 1300 820 Output Total 275 800 500 Balance 205 500 320 Weight 116.12 kg Intake: IV 820 820 Invasive Line 2 20 20 Sodium Chloride 0.9% 1, 800 800 000 ml @ 100 mls/hr IV . Q10H [facility] Rx#:[id number] Oral 480 480 Output: Urine 275 800 500 Other: # Voids 2 # Bowel Movements 1 - Exam - Constitutional General appearance: morbidly obese, no acute distress. On room air. - EENT Eyes: EOMI, PERRLA ENT: hearing grossly normal Ears: bilateral: normal - Neck Neck: normal ROM Carotids: bilateral: upstroke normal Thyroid: bilateral: normal size - Respiratory Respiratory: bilateral: rales - Cardiovascular Rhythm: regular Heart sounds: normal: S1, S2 - Gastrointestinal General gastrointestinal: normal bowel sounds - Integumentary Integumentary: normal turgor - Neurologic Neurologic: CNII-XII intact - Musculoskeletal Musculoskeletal: generalized weakness - Psychiatric Psychiatric: A&O x's 3, appropriate affect, intact judgment & insight - Labs CBC & Chem 7: 06/17/18 05:51 06/17/18 05:51 Labs: Abnormal Lab Results - Last 24 Hours (Table) 06/16/18 06/16/18 06/16/18 Range/Units 03:52 16:38 19:00 Hgb (13.0-17.5) gm/dL Hct (39.0-53.0) % MCHC (31.0-37.0) g/dL RDW (11.5-15.5) % Lymphocytes # (1.0-4.8) k/uL Chloride (98-107) mmol/L Carbon Dioxide (22-30) mmol/L BUN (9-20) mg/dL Creatinine (0.66-1.25) mg/dL Glucose (74-99) mg/dL POC Glucose (mg/dL) 170 H (75-99) mg/dL Hemoglobin A1c 9.3 H (4.0-6.0) % Urine Protein Trace H (Negative) Ur Leukocyte Esterase Small H (Negative) Urine WBC 7 H (0-5) /hpf Urine Mucus Rare H (None) /hpf 06/16/18 06/17/18 06/17/18 Range/Units 20:09 05:51 05:51 Hgb 11.5 L (13.0-17.5) gm/dL Hct 38.4 L (39.0-53.0) % MCHC 29.9 L (31.0-37.0) g/dL RDW 16.3 H (11.5-15.5) % Lymphocytes # 0.5 L (1.0-4.8) k/uL Chloride 109 H (98-107) mmol/L Carbon Dioxide 21 L (22-30) mmol/L BUN 32 H (9-20) mg/dL Creatinine 1.44 H (0.66-1.25) mg/dL Glucose 221 H (74-99) mg/dL POC Glucose (mg/dL) 165 H (75-99) mg/dL Hemoglobin A1c (4.0-6.0) % Urine Protein (Negative) Ur Leukocyte Esterase (Negative) Urine WBC (0-5) /hpf Urine Mucus (None) /hpf 06/17/18 06/17/18 Range/Units 06:20 11:49 Hgb (13.0-17.5) gm/dL Hct (39.0-53.0) % MCHC (31.0-37.0) g/dL RDW (11.5-15.5) % Lymphocytes # (1.0-4.8) k/uL Chloride (98-107) mmol/L Carbon Dioxide (22-30) mmol/L BUN (9-20) mg/dL Creatinine (0.66-1.25) mg/dL Glucose (74-99) mg/dL POC Glucose (mg/dL) 219 H 215 H (75-99) mg/dL Hemoglobin A1c (4.0-6.0) % Urine Protein (Negative) Ur Leukocyte Esterase (Negative) Urine WBC (0-5) /hpf Urine Mucus (None) /hpf Microbiology - Last 24 Hours (Table) 06/16/18 03:52 Blood Culture - Preliminary Blood No Growth after 24 hours 06/16/18 19:00 Urine Culture - Preliminary Urine,Voided Assessment and Plan Assessment: Impression: #1 Dyspnea secondary to an acute exacerbation of chronic obstructive pulmonary disease and suspected pulmonary fibrosis. No clear evidence of pneumonia. Influenza screen negative. #2 History of central right middle lobe opacity noted on previous CT scans. Suspect pseudotumor versus scarring. There is also a spiculated area along the superior margin of this opacity measuring 1.6 cm versus 1.2 cm previously noted on a CAT scan. Followed up in the outpatient setting. #3 Diabetes mellitus. #4 Diabetic neuropathy. #5 Gastroesophageal reflux disease. #6 Coronary artery disease with previous stent placement. #7 Hypothyroidism. #8 Hyperlipidemia. Plan: The patient was seen and evaluated by Dr. Clayton. He is stable from the pulmonary standpoint he could be discharged home today. Complete a prednisone taper. Follow-up in our office in 1-2 weeks' time. I, the cosigning physician, performed a history & physical examination of the patient. Lungs sounds are coarse crackles in the posterior bases. Maintaining good O2 saturations in the 90s on room air. I discussed the assessment and plan of care with my nurse practitioner, Yesica Vanegas. I attest to the above consultation as dictated by her.
[2018-06-17 17:24] VITALS: BP 168/81; PULSE 98; RESP 16; TEMP 97.7
--- NOTE | 2018-06-17 19:11 | HP ---
HISTORY AND PHYSICAL CHIEF COMPLAINT: 82-year-old white male, difficulty breathing, coughing, admitted with possible COPD exacerbation and nodules in his lungs which were being worked up by a manager golf as an outpatient. He has a history of COPD, diastolic heart failure, diabetes mellitus, GERD, history of diabetes mellitus. HOME MEDICINES: Allopurinol for gout, Buhl for chronic pain, Zocor, Prilosec, aspirin, Lopressor, vitamin D3, Jardiance, Lasix, Neurontin, Lantus, Humalog, Lopressor, ( ), Glucotrol. ALLERGIES: PLAVIX AND NITROSTAT. REVIEW OF SYSTEMS: Fourteen point review of systems negative except for mentioned in HPI. PAST MEDICAL HISTORY: COPD, diabetes mellitus, GERD, myocardial infarction, diabetic neuropathy, lumbar disc disease, heart catheterizations, tonsillectomy. SOCIAL HISTORY: Former smoker. No alcohol no illicit drugs. FAMILY HISTORY: Father had cancer. Mother negative. PHYSICAL EXAM: Blood pressure on admission is 80s over 50s and hypoxemia. He is on 3 L of oxygen, sat 92% on room air. ENDOCRINE: BMI is over 40. RESPIRATORY: Decreased breath sounds bilaterally. Scattered wheezes. HEART: S1, S2. GI: Soft, nontender. Normal bowel sounds. HEMATOLOGY: Negative Homans. BACK: Normal inspection. INTEGUMENT: No rash, excoriations or bruising. ASSESSMENT: Acute hypoxemic respiratory failure, unclear etiology. Possible COPD exacerbation. Rule out PE. Rule out diastolic heart failure. Cardiology and Pulmonary consulted. Please see further orders. MMODL / IJN: [id number] /
[2018-06-18] MEDS ORDERED: PANTOPRAZOLE 40 MG TABLET PO SCH (07:30)
--- NOTE | 2018-06-21 23:22 | DS ---
DISCHARGE SUMMARY DATE OF ADMISSION: 06/16/2018 DATE OF DISCHARGE: 06/17/2018 DISCHARGE MEDICINES: 1. Zocor 40 at bedtime. 2. Prilosec 20 daily. 3. Latty 7.5 p.r.n. 4. DuoNeb q.i.d. 5. Plavix 75 daily. 6. Nitroglycerin sublingually p.r.n. 7. Lopressor 50 b.i.d. 8. Repaglinide 1 mg t.i.d. 9. Neurontin 300 t.i.d. 10.Lasix 40 mg b.i.d. 11.Actos 30 mg daily. 12.Aspirin 81 mg daily. 13.Symbicort 160/4.5 two puffs b.i.d. 14.DuoNeb q.i.d. CONDITION: Stable. PROGNOSIS: Guarded. Ambulate as tolerated. HOSPITAL COURSE OF EVENTS: This is a white male who was admitted to the hospital with COPD exacerbation and CHF exacerbation. He was seen by Pulmonology and Cardiology and started on IV steroids over 24 to 48 hours. The patient greatly improved with IV Lasix and IV steroids. He will be sent home on oral steroids, some Lasix, to follow up as an outpatient after being cleared for any significant heart disease or heart attack. MMODL / IJN: [id number] /
== END 2018-06-17 18:09 | disposition home or self-care (01) | DRG 190 ==
LOC: EC 03:08 → 3SCARD 05:51
PROVIDERS: ADMIT Family Medicine; ATTEND Family Medicine
DX: J44.1 Chronic obstructive pulmonary disease with (acute) exacerbation (principal); J96.01 Acute respiratory failure with hypoxia; I50.32 Chronic diastolic (congestive) heart failure; I13.0 Hypertensive heart and chronic kidney disease with heart failure and stage 1 through stage 4 chronic kidney disease, or unspecified chronic kidney disease; N18.9 Chronic kidney disease, unspecified; K21.9 Gastro-esophageal reflux disease without esophagitis; E11.42 Type 2 diabetes mellitus with diabetic polyneuropathy; E03.9 Hypothyroidism, unspecified; E78.5 Hyperlipidemia, unspecified; I25.10 Atherosclerotic heart disease of native coronary artery without angina pectoris; E66.9 Obesity, unspecified; E11.22 Type 2 diabetes mellitus with diabetic chronic kidney disease; Z80.8 Family history of malignant neoplasm of other organs or systems; G89.29 Other chronic pain; M10.9 Gout, unspecified; J84.10 Pulmonary fibrosis, unspecified; I95.9 Hypotension, unspecified; M51.36 Other intervertebral disc degeneration, lumbar region; R79.1 Abnormal coagulation profile; Z95.5 Presence of coronary angioplasty implant and graft; Z87.891 Personal history of nicotine dependence; I25.2 Old myocardial infarction; Z79.899 Other long term (current) drug therapy; Z68.36 Body mass index [BMI] 36.0-36.9, adult; Z79.02 Long term (current) use of antithrombotics/antiplatelets; Z79.4 Long term (current) use of insulin; Z79.51 Long term (current) use of inhaled steroids; Z79.82 Long term (current) use of aspirin; Z88.8 Allergy status to other drugs, medicaments and biological substances
CPT/HCPCS: 36415; 71046; 78582; 80048; 80053; 81001; 83036; 83605; 83880; 84484; 85025; 85379; 85610; 85730; 87040; 87086; 87502; 93005; 94640; 96361; 96372; 96374; 99285

== ENCOUNTER 2018-10-02 05:38 | Day surgery (SDC) | payer MEDICARE, OTHER ==
[2018-09-27 11:30] VITALS: BMI 37.6
[2018-10-02] MEDS ORDERED: ASPIRIN 325 MG TAB PO STA (05:58)
[2018-10-02] MEDS ORDERED: SODIUM CHLORIDE 0.9% 1,000 ML in EMPTY BAG 1 BAG IV ONE (05:58)
[2018-10-02] MEDS ORDERED: ALPRAZolam 0.25 MG TAB PO PRN (05:58)
[2018-10-02 06:28] VITALS: TEMP 98
[2018-10-02 06:29] LABS: Glucose,Whole Blood 174 mg/dL (75-99)
[2018-10-02 06:32] LABS: Anisocytosis Slight; Basophils % (A) 1 %; Eosinophils # (A) 0.3 k/uL (0-0.7); Eosinophils % (A) 5 %; HCT 37.6 % (39.0-53.0); HGB 12.3 gm/dL (13.0-17.5); Lymphocytes # (A) 1.2 k/uL (1.0-4.8); Lymphocytes % (A) 21 %; MCH 26.4 pg (25.0-35.0); MCHC 32.8 g/dL (31.0-37.0); MCV 80.4 fL (80.0-100.0); Mean Platelet Volume 8.3; Monocytes # (A) 0.4 k/uL (0-1.0); Monocytes % (A) 7 %; Neutrophils # (A) 3.7 k/uL (1.3-7.7); Neutrophils % (A) 65 %; Platelet Count 201 k/uL (150-450); Poikilocytosis Slight; RBC 4.67 m/uL (4.30-5.90); RDW 16.4 % (11.5-15.5); WBC 5.7 k/uL (3.8-10.6)
[2018-10-02] MEDS ORDERED: MIDAZOLAM 2 MG/2 ML VIAL IVP ONE (07:52)
[2018-10-02] MEDS ORDERED: LIDOCAINE 1% INJ 10MG/ML (20 ML MDV) SQ ONE (07:54)
[2018-10-02] MEDS ORDERED: IOPAMIDOL-250 100ML BTL INTRAARTER ONE (08:01)
--- NOTE | 2018-10-02 08:31 | AN ---
ANGIOGRAPHY REPORT DATE OF SERVICE: October 02, 2018 PERFORMING PHYSICIAN: Daniel Petty MD, travel insurance agent. PROCEDURE PERFORMED: 1. An abdominal aortogram. 2. Bilateral lower extremities runoff. INDICATION: This is an 83-year-old gentleman who sees Dr. Zamudio in the office as an outpatient with history of diabetes, hypertension, and dyslipidemia, who was experiencing bilateral lower extremities intermittent claudication. He did not have any evidence of critical limb ischemia. He was referred by Dr. Arrieta for further evaluation of peripheral arterial disease. APPROACH: Right common femoral artery. COMPLICATION: None. LEVEL OF SEDATION: Moderate with sedation length of 8 minutes. PROCEDURE DESCRIPTION: After obtaining an informed consent, the patient was brought to the cardiac process laboratory specialist. The right common femoral artery was cannulated using micropuncture technique, the micropuncture wire passed easily then I placed a 5-Bahraini sheath in the right common femoral artery. I did an abdominal aortogram and bilateral lower extremities runoff using 5-Bahraini pigtail catheter which was initially placed at the level of the renal arteries then it was pulled into above the bifurcation of the aorta to right and left common iliac arteries. The procedure was completed without any complication. SELECTIVE PERIPHERAL ANGIOGRAM: 1. The aorta appeared to have an aneurysm seems to be infrarenal and just above the bifurcation into right and left common iliac arteries. 2. Common iliac arteries: The right and left common iliac arteries are angiographically normal. 3. Internal iliac arteries: The right and left internal iliac arteries are patent. 4. External iliac arteries: The right and left external are patent. 5. Common femoral: The right and left common femoral arteries are angiographically normal. 6. SFA: The right and left SFA are normal. 7. Profunda: The right and left profunda are patent. 8. Popliteal: The right and left popliteal are angiographically normal. 9. Below the knee: There are 3 vessels runoff below the knee bilaterally with AT, PT, and peroneal. CONCLUSION: 1. Normal peripheral angiogram. 2. Abdominal infrarenal abdominal aortic aneurysm. POSTPROCEDURE MANAGEMENT: 1. Maximize medical treatment. 2. CT scan of the aorta to assess the exact size of the infrarenal aortic aneurysm. 3. Follow up with the patient. MMODL / IJN: [id number] /
[2018-10-02 08:36] VITALS: RESP 18
--- NOTE | 2018-10-02 09:07 | IR ---
EXAMINATION TYPE: IR angio abdominal w runoff DATE OF EXAM: 10/02/2018 COMPARISON: NONE HISTORY: Fluoroscopy time. Fluoroscopy was provided to the referring clinician.
[2018-10-02 11:13] VITALS: BP 134/75; PULSE 76
== END 2018-10-02 14:00 | disposition home or self-care (01) ==
LOC: CATHCVL 05:38
PROVIDERS: ATTEND Internal Medicine Interventional Cardiology
DX: I71.4 Abdominal aortic aneurysm, without rupture (principal); I25.10 Atherosclerotic heart disease of native coronary artery without angina pectoris; E13.9 Other specified diabetes mellitus without complications; E78.5 Hyperlipidemia, unspecified; I11.0 Hypertensive heart disease with heart failure; Z82.49 Family history of ischemic heart disease and other diseases of the circulatory system; I50.30 Unspecified diastolic (congestive) heart failure; Z72.0 Tobacco use; Z79.02 Long term (current) use of antithrombotics/antiplatelets; Z79.82 Long term (current) use of aspirin; Z79.4 Long term (current) use of insulin; Z79.899 Other long term (current) drug therapy
CPT/HCPCS: 36200; 75625; 75716; 85025; C1894; C1769 ×4; J2250; J2001; Q9966

== ENCOUNTER → 2018-10-20 | Outpatient (CLI) | payer MEDICARE, OTHER ==
--- NOTE | 2018-10-20 11:11 | CT ---
EXAMINATION TYPE: CT abdomen pelvis wo con DATE OF EXAM: 10/20/2018 COMPARISON: 10/17/2017 HISTORY: Follow up for AAA seen on Fluoroscopic abdominal runoff CT DLP: 1381.3 mGycm Examination of the solid and hollow viscera is limited given the lack of contrast. FINDINGS: LUNG BASES: Stable nodule right lower lobe measuring 8 mm. There is a parenchymal scarring are redemo nstrated. LIVER/GB: There is evidence of hepatomegaly. The gallbladder is unremarkable. No space-occupying hepa tic lesion. PANCREAS: No pancreatic mass identified. No inflammatory process seen. SPLEEN: No evidence for splenomegaly. No intrasplenic lesions seen. ADRENALS: No adrenal nodules identified. No evidence for thickening. KIDNEYS: No evidence for renal mass. No nephrolithiasis. No hydronephrosis. BOWEL: Appendix has a normal appearance. No evidence of bowel obstruction. No inflammatory process. Lymph nodes: No evidence for adenopathy greater than 1 cm. Abdominal aorta: Atheromatous changes seen. No evidence for aneurysm. Infrarenal abdominal aorta hoa ures 2.9 cm maximal AP dimension. Atheromatous and mildly ectatic changes of the common iliac arterie s. Genital organs: No significant abnormality. Other: No significant abnormality. IMPRESSION: 1. Hepatomegaly. 2. No evidence for abdominal aortic aneurysm at this time.
== END | disposition home or self-care (01) ==
LOC: RADCTMAIN 07:50
PROVIDERS: ATTEND Internal Medicine Interventional Cardiology
DX: R16.0 Hepatomegaly, not elsewhere classified (principal)
CPT/HCPCS: 74176; 82565; 84520

== ENCOUNTER 2018-11-02 19:46 | Inpatient (IN) | payer MEDICARE, OTHER ==
--- NOTE | 2018-11-02 21:15 | ED ---
Fall HPI - General Chief Complaint: Fall Stated Complaint: Fall Time Seen by Provider: 11/02/18 21:09 Source: patient, family Mode of arrival: wheelchair - History of Present Illness Initial Comments: This patient is an 83-year-old man who presents to be evaluated for a number of aches and pains that he is having after having had a fall last night. The patient states that he had gotten up to use the bathroom probably sometime after 2 AM. He states that he then remembers waking up on the floor of his bathroom. He believes he had fallen and hit his right shoulder. The patient states that he was feeling so weak that initially he was not able to stand up or to get to his phone. He states that it took him approximately 3 hours to crawl to his cell phone and then he called his daughter. Patient states that his daughter was able to come and get him up and get him back to bed. He was feeling a number of aches and pains tonight so he decided to be evaluated here. The patient states that he is mainly having right shoulder and left rib pain area he states there is also some bilateral knee discomfort and after having crawled. MD Complaint: fall Onset/Timin -: hour(s) Fall From: standing Fall Witnessed: no Place Fall Occurred: home Loss of Consciousness: unsure Prolonged Down Time?: hour(s) Symptoms Prior to Fall: none Location - Extremities: Right: Shoulder Severity: moderate Quality: aching - Related Data Home Medications Medication Instructions Recorded Confirmed Omeprazole [PriLOSEC] 20 mg PO DAILY 06/11/14 11/02/18 Simvastatin [Zocor] 40 mg PO HS 06/11/14 11/02/18 Hydrocodone/Acetaminophen [[place] 1 tab PO DAILY PRN 10/12/15 11/02/18 7.5-325] Furosemide [Lasix] 40 mg PO BID 10/16/17 11/02/18 Gabapentin [Neurontin] 300 mg PO TID 10/16/17 11/02/18 Metoprolol Tartrate [Lopressor] 50 mg PO DAILY 10/16/17 11/02/18 Repaglinide 1 mg PO TID 10/16/17 11/02/18 Aspirin [Adult Low Dose Aspirin EC] 81 mg PO DAILY 06/16/18 11/02/18 Fexofenadine HCl [Mercedes Allergy] 180 mg PO DAILY 09/27/18 11/02/18 Albuterol Nebulized [Ventolin 2.5 mg INHALATION RT-QID PRN 11/02/18 11/02/18 Nebulized] Cholecalciferol [Vitamin D3 (25 1,000 unit PO DAILY 11/02/18 11/02/18 Mcg = 1000 Iu)] Colchicine [Colcrys] 0.6 mg PO DAILY 11/02/18 11/02/18 Insulin Lispro [humaLOG Kwikpen] 70 unit SQ QAM 11/02/18 11/02/18 Previous Rx's Medication Instructions Recorded Clopidogrel [Plavix] 75 mg PO DAILY #90 tab 08/17/17 Allergies Allergy/AdvReac Type Severity Reaction Status Date / Time No Known Allergies Allergy Verified 11/02/18 21:15 Review of Systems ROS Statement: Those systems with pertinent positive or pertinent negative responses have been documented in the HPI. ROS Other: All systems not noted in ROS Statement are negative. Past Medical History Past Medical History: COPD, Diabetes Mellitus, GERD/Reflux, Hypertension, Myocardial Infarction ([place]), Renal Disease, Sleep Apnea/CPAP/BIPAP, Vascular Disorder Additional Past Medical History / Comment(s): NEUROPATHY FEET, decreased kidney function, uses CPAP Last Myocardial Infarction Date:: 2015 History of Any Multi-Drug Resistant Organisms: None Reported Past Surgical History: Heart Catheterization, Heart Catheterization With Stent, Tonsillectomy Additional Past Surgical History / Comment(s): EGD, COLONOSCOPY, sinus surg. x3 Past Anesthesia/Blood Transfusion Reactions: No Reported Reaction Date of Last Stent Placement:: 2015 Past Psychological History: No Psychological Hx Reported Smoking Status: Former smoker Past Alcohol Use History: None Reported Past Drug Use History: None Reported - Past Family History Father Family Medical History: Cancer Additional Family Medical History / Comment(s): Father had bone cancer. He at the age of 80yrs. Mother Family Medical History: No Reported History Additional Family Medical History / Comment(s): Mother was healthy and lived to be 82 yrs old. General Exam Limitations: physical limitation Course Vital Signs 11/02/18 20:12 Temperature 99.1 F Pulse Rate 98 Respiratory 18 Rate Blood Pressure 98/50 O2 Sat by Pulse 90 L Oximetry Medical Decision Making - Medical Decision Making Patient is an 83-year-old man with syncopal episode and ground level fall. There does not appear to be any traumatic injury. Patient be admitted for t elemetry monitoring and cardiology consultation, given his minimally elevated troponin. - Lab Data Result diagrams: 11/02/18 21:13 11/02/18 21:13 Lab Results 11/02/18 11/02/18 11/02/18 Range/Units 21:13 21:13 21:13 WBC 10.7 H (3.8-10.6) k/uL RBC 4.83 (4.30-5.90) m/uL Hgb 13.0 (13.0-17.5) gm/dL Hct 39.8 (39.0-53.0) % MCV 82.4 (80.0-100.0) fL MCH 26.9 (25.0-35.0) pg MCHC 32.6 (31.0-37.0) g/dL RDW 16.9 H (11.5-15.5) % Plt Count 219 (150-450) k/uL Neutrophils % 79 % Lymphocytes % 12 % Monocytes % 5 % Eosinophils % 2 % Basophils % 0 % Neutrophils # 8.4 H (1.3-7.7) k/uL Lymphocytes # 1.3 (1.0-4.8) k/uL Monocytes # 0.6 (0-1.0) k/uL Eosinophils # 0.2 (0-0.7) k/uL Basophils # 0.1 (0-0.2) k/uL Poikilocytosis Slight Anisocytosis Slight PT (9.0-12.0) sec INR (<1.2) APTT (22.0-30.0) sec Sodium 138 (137-145) mmol/L Potassium 3.4 L (3.5-5.1) mmol/L Chloride 99 (98-107) mmol/L Carbon Dioxide 27 (22-30) mmol/L Anion Gap 12 mmol/L BUN 35 H (9-20) mg/dL Creatinine 1.76 H (0.66-1.25) mg/dL Est GFR (CKD-EPI)AfAm 41 (>60 ml/min/1.73 sqM) Est GFR (CKD-EPI)NonAf 36 (>60 ml/min/1.73 sqM) Glucose 261 H (74-99) mg/dL Plasma Lactic Acid Chang (0.7-2.0) mmol/L Calcium 9.9 (8.4-10.2) mg/dL Magnesium 1.9 (1.6-2.3) mg/dL Total Bilirubin 0.9 (0.2-1.3) mg/dL AST 36 (17-59) U/L ALT 27 (21-72) U/L Alkaline Phosphatase 100 (38-126) U/L Creatine Kinase 575 H (55-170) U/L CK-MB (CK-2) 2.1 (0.0-2.4) ng/mL Troponin I 0.062 H* (0.000-0.034) ng/mL Total Protein 8.0 (6.3-8.2) g/dL Albumin 4.4 (3.5-5.0) g/dL 11/02/18 11/02/18 Range/Units 21:13 21:13 WBC (3.8-10.6) k/uL RBC (4.30-5.90) m/uL Hgb (13.0-17.5) gm/dL Hct (39.0-53.0) % MCV (80.0-100.0) fL MCH (25.0-35.0) pg MCHC (31.0-37.0) g/dL RDW (11.5-15.5) % Plt Count (150-450) k/uL Neutrophils % % Lymphocytes % % Monocytes % % Eosinophils % % Basophils % % Neutrophils # (1.3-7.7) k/uL Lymphocytes # (1.0-4.8) k/uL Monocytes # (0-1.0) k/uL Eosinophils # (0-0.7) k/uL Basophils # (0-0.2) k/uL Poikilocytosis Anisocytosis PT 10.2 (9.0-12.0) sec INR 0.9 (<1.2) APTT 25.7 (22.0-30.0) sec Sodium (137-145) mmol/L Potassium (3.5-5.1) mmol/L Chloride (98-107) mmol/L Carbon Dioxide (22-30) mmol/L Anion Gap mmol/L BUN (9-20) mg/dL Creatinine (0.66-1.25) mg/dL Est GFR (CKD-EPI)AfAm (>60 ml/min/1.73 sqM) Est GFR (CKD-EPI)NonAf (>60 ml/min/1.73 sqM) Glucose (74-99) mg/dL Plasma Lactic Acid Chang 1.5 (0.7-2.0) mmol/L Calcium (8.4-10.2) mg/dL Magnesium (1.6-2.3) mg/dL Total Bilirubin (0.2-1.3) mg/dL AST (17-59) U/L ALT (21-72) U/L Alkaline Phosphatase (38-126) U/L Creatine Kinase (55-170) U/L CK-MB (CK-2) (0.0-2.4) ng/mL Troponin I (0.000-0.034) ng/mL Total Protein (6.3-8.2) g/dL Albumin (3.5-5.0) g/dL - EKG Data -: EKG Interpreted by De EKG shows normal: sinus rhythm (Rate 93 bpm), axis (Normal), intervals (QTC is 512 ms, prolonged. UT interval 178 ms, QRS duration 88 ms, both normal), QRS complexes (Normal) Disposition Clinical Impression: Syncope, Fall, Abrasion of knee, bilateral, Shoulder injury, Rib pain on left side, Elevated troponin Disposition: ADMITTED IP TO THIS HOSP Condition: Fair Is patient prescribed a controlled substance at d/c from ED?: No Referrals: Miguel Parra MD [Primary Care Provider] - 1-2 days
[2018-11-02] MEDS ORDERED: SODIUM CHLORIDE 0.9% 500 ML 500 ML IV STA (21:23)
[2018-11-02] MEDS ORDERED: ACETAMINOPHEN TAB 325 MG TAB PO STA (21:23)
[2018-11-02 21:25] LABS: Anisocytosis Slight; Basophils # (A) 0.1 k/uL (0-0.2); Basophils % (A) 0 %; Eosinophils # (A) 0.2 k/uL (0-0.7); Eosinophils % (A) 2 %; HCT 39.8 % (39.0-53.0); Lymphocytes # (A) 1.3 k/uL (1.0-4.8); Lymphocytes % (A) 12 %; MCH 26.9 pg (25.0-35.0); MCHC 32.6 g/dL (31.0-37.0); MCV 82.4 fL (80.0-100.0); Mean Platelet Volume 8.4; Monocytes # (A) 0.6 k/uL (0-1.0); Monocytes % (A) 5 %; Neutrophils # (A) 8.4 k/uL (1.3-7.7); Neutrophils % (A) 79 %; Platelet Count 219 k/uL (150-450); Poikilocytosis Slight; RBC 4.83 m/uL (4.30-5.90); RDW 16.9 % (11.5-15.5); WBC 10.7 k/uL (3.8-10.6)
[2018-11-02 21:33] LABS: INR 0.9 (<1.2); Partial Thromboplastin Time 25.7 sec (22.0-30.0); Prothrombin Time 10.2 sec (9.0-12.0)
[2018-11-02 21:35] LABS: Albumin 4.4 g/dL (3.5-5.0); Calcium 9.9 mg/dL (8.4-10.2); Magnesium 1.9 mg/dL (1.6-2.3); Potassium 3.4 mmol/L (3.5-5.1); Total Bilirubin 0.9 mg/dL (0.2-1.3)
--- NOTE | 2018-11-02 21:38 | XR ---
EXAMINATION TYPE: XR chest 1V portable DATE OF EXAM: 11/02/2018 COMPARISON: 07/07/2018 HISTORY: Fall. Pain. TECHNIQUE: Single frontal view of the chest is obtained. FINDINGS: There is some patchy infiltrate and atelectasis in the lower lung alvarado and more on the r ight side. There is no heart failure. Heart size is probably normal. There are chest leads. The ribs appear intact. I see no pneumothorax. IMPRESSION: Increased bilateral infiltrate and atelectasis compared to last exam.
[2018-11-02 21:46] LABS: Creatine Kinase MB 2.1 ng/mL (0.0-2.4)
--- NOTE | 2018-11-02 21:46 | XR ---
EXAMINATION TYPE: XR shoulder complete RT DATE OF EXAM: 11/02/2018 COMPARISON: NONE HISTORY: Shoulder pain TECHNIQUE: 3 views FINDINGS: There is some spurring at the glenohumeral joint. I see no fracture nor dislocation. There is spurring at the AC joint. IMPRESSION: Hypertrophic osteoarthritis. No fracture seen. There is some atelectasis in the right mid lung. No rib fracture seen.
--- NOTE | 2018-11-02 21:47 | XR ---
EXAMINATION TYPE: XR ribs LT DATE OF EXAM: 11/02/2018 COMPARISON: NONE HISTORY: Rib pain after falling TECHNIQUE: 4 views FINDINGS: There is mild subsegmental atelectasis in the left lower lobe. There is no pneumothorax. Th ere is mild pleural thickening at the left lung base. I see no rib fracture. IMPRESSION: No rib fracture seen. Subsegmental atelectasis or scarring in the left lower lobe.
[2018-11-02 22:18] LABS: Troponin I 0.062 ng/mL (0.000-0.034)
[2018-11-02] MEDS ORDERED: NITROGLYCERIN SL TABS 0.4 MG TAB SUBLINGUAL PRN (22:56)
[2018-11-02] MEDS ORDERED: HYDROcodone/APAP 7.5-325MG 1 EACH TAB PO PRN (22:58)
[2018-11-02] MEDS ORDERED: ALBUTEROL NEBULIZED 2.5 MG/3 ML INHALATION PRN (22:58)
[2018-11-02] MEDS: SODIUM CHLORIDE 0.9% 1,000 ML IV SCH (23:02)
[2018-11-02 23:44] LABS: Glucose,Whole Blood 229 mg/dL (75-99)
[2018-11-03 01:19] VITALS: BMI 38.4
[2018-11-03 03:06] LABS: Appearance,Urine Clear (Clear); Bilirubin,Urine Negative (Negative); Blood,Urine Negative (Negative); Color,Urine Yellow; Glucose,Urine (UA) 2+ (Negative); Hyaline Casts,Urine 9 /lpf (0-2); Ketones,Urine Negative (Negative); Leukocyte Esterase,Urine Negative (Negative); Nitrite,Urine Negative (Negative); Protein,Urine 1+ (Negative); RBC,Urine 1 /hpf (0-5); Specific Gravity,Urine 1.021 (1.001-1.035); Squamous Epithelial Cell,Urine <1 /hpf (0-4); Urobilinogen,Urine <2.0 mg/dL (<2.0)
[2018-11-03 04:50] LABS: Anisocytosis Slight; HCT 37.1 % (39.0-53.0); HGB 11.7 gm/dL (13.0-17.5); MCH 26.3 pg (25.0-35.0); MCHC 31.7 g/dL (31.0-37.0); MCV 83.1 fL (80.0-100.0); Mean Platelet Volume 8.4; Platelet Count 197 k/uL (150-450); Poikilocytosis Slight; RBC 4.47 m/uL (4.30-5.90); RDW 16.8 % (11.5-15.5); WBC 8.6 k/uL (3.8-10.6)
[2018-11-03 05:00] LABS: Calcium 8.9 mg/dL (8.4-10.2); Potassium 2.9 mmol/L (3.5-5.1)
[2018-11-03] MEDS ORDERED: Potassium Replacement Protocol 1 EACH MISC MISCELLANE PRN (05:03)
[2018-11-03] MEDS: POTASSIUM CHLORIDE 10 MEQ in WATER FOR INJECTION 1 100ML.BAG IVPB SCH ×6 (05:27→13:30)
[2018-11-03] MEDS ORDERED: Magnesium Replacement Protocol 1 EACH MISC MISCELLANE PRN (06:08)
[2018-11-03] MEDS: MAGNESIUM SULFATE-D5W PMX 1 GM in DEXTROSE/WATER 1 100ML.BAG IVPB SCH ×2 (06:35→08:06)
[2018-11-03 07:07] LABS: Glucose,Whole Blood 232 mg/dL (75-99)
[2018-11-03] MEDS: INSULIN ASPART (NovoLOG) 100 UNIT/ML VIAL SQ SCH ×7 (07:43→21:07)
--- NOTE | 2018-11-03 07:55 | P.CRDCN ---
History of Present Illness Consult date: 11/03/18 Chief complaint: Syncope History of present illness: This is a pleasant 83-year-old gentleman who sees Dr. Zamudio in the office as an outpatient with a past medical history significant for coronary artery disease and prior stenting of the left anterior descending artery as well as left circumflex performed in July 2017, diabetes, hypertension, dyslipidemia, presented to the hospital after he lost his consciousness. The patient state that he was walking to the bathroom yesterday around 2:00 in the morning and then the last thing he remembered that he was laying on the floor of the bathroom. The patient also stated that he has been feeling weak since then. He denies any symptoms of chest pain, chest discomfort, shortness of breath, dizziness, or any feeling of heart racing or fluttering around the episode. The only complaint he has at this point in his right shoulder and left rib pain but he underwent an x-ray which came in to be unremarkable and without any abnormalities. The EKG showed sinus rhythm with nonspecific changes and prolonged QT. The patient is not on any medications Cause prolonged QT. The cardiac enzymes were checked and came in to be slightly abnormal. The chest x- ray did not show any acute abnormalities. Currently the patient is on medical treatment consistent of aspirin, metoprolol, as well as a statin. He states clearly that he does not want any intervention on the heart to be done and he wants to be DO NOT RESUSCITATE only. He does not want any invasive procedure to be done as well. Past Medical History Past Medical History: COPD, Diabetes Mellitus, GERD/Reflux, Hypertension, Myocardial Infarction ([place]), Renal Disease, Sleep Apnea/CPAP/BIPAP, Vascular Disorder Additional Past Medical History / Comment(s): NEUROPATHY FEET, decreased kidney function, uses CPAP Last Myocardial Infarction Date:: 2015 History of Any Multi-Drug Resistant Organisms: None Reported Past Surgical History: Heart Catheterization, Heart Catheterization With Stent, Tonsillectomy Additional Past Surgical History / Comment(s): EGD, COLONOSCOPY, sinus surg. x3 Past Anesthesia/Blood Transfusion Reactions: No Reported Reaction Date of Last Stent Placement:: 2015 Past Psychological History: No Psychological Hx Reported Additional Psychological History / Comment(s): Pt resides alone. He has a cane and a walker which he uses prn. He drives. He is independent. Smoking Status: Former smoker Past Alcohol Use History: None Reported Additional Past Alcohol Use History / Comment(s): QUIT SMOKING 2006, SMOKED FROM AGE 1947- 3 TO 3 AND 1/2PPD Past Drug Use History: None Reported - Past Family History Father Family Medical History: Cancer, Myocardial Infarction ([place]) Additional Family Medical History / Comment(s): Father had bone cancer. He at the age of 80yrs. Mother Family Medical History: AFIB, Myocardial Infarction ([place]) Additional Family Medical History / Comment(s): Mother when she 82 years old and of a heart attack Medications and Allergies Home Medications Medication Instructions Recorded Confirmed Type Omeprazole [PriLOSEC] 20 mg PO DAILY 06/11/14 11/02/18 History Simvastatin [Zocor] 40 mg PO HS 06/11/14 11/02/18 History Hydrocodone/Acetaminophen [[place] 1 tab PO DAILY PRN 10/12/15 11/02/18 History 7.5-325] Clopidogrel [Plavix] 75 mg PO DAILY #90 tab 08/17/17 11/02/18 Rx Furosemide [Lasix] 40 mg PO BID 10/16/17 11/02/18 History Gabapentin [Neurontin] 300 mg PO TID 10/16/17 11/02/18 History Metoprolol Tartrate [Lopressor] 50 mg PO DAILY 10/16/17 11/02/18 History Repaglinide 1 mg PO TID 10/16/17 11/02/18 History Aspirin [Adult Low Dose Aspirin EC] 81 mg PO DAILY 06/16/18 11/02/18 History Fexofenadine HCl [Mercedes Allergy] 180 mg PO DAILY 09/27/18 11/02/18 History Albuterol Nebulized [Ventolin 2.5 mg INHALATION RT-QID PRN 11/02/18 11/02/18 History Nebulized] Cholecalciferol [Vitamin D3 (25 1,000 unit PO DAILY 11/02/18 11/02/18 History Mcg = 1000 Iu)] Colchicine [Colcrys] 0.6 mg PO DAILY 11/02/18 11/02/18 History Insulin Lispro [humaLOG Kwikpen] 70 unit SQ QAM 11/02/18 11/02/18 History Allergies Allergy/AdvReac Type Severity Reaction Status Date / Time No Known Allergies Allergy Verified 11/02/18 21:15 Physical Exam Vitals: Vital Signs Temp Pulse Resp BP Pulse Ox 11/03/18 06:00 90 13 113/55 92 L 11/03/18 05:00 89 15 113/57 91 L 11/03/18 04:00 98.0 F 87 12 100/54 92 L 11/03/18 03:00 83 25 H 128/62 91 L 11/03/18 02:00 89 12 96/57 93 L 11/03/18 01:00 81 14 105/59 94 L 11/03/18 00:00 98.3 F 82 10 L 95/56 92 L 11/02/18 23:15 77 18 99/51 97 11/02/18 23:00 98 20 99/51 97 11/02/18 20:12 99.1 F 98 18 98/50 90 L Intake and Output 11/02/18 11/03/18 11/03/18 22:59 06:59 14:59 Intake Total 500 Output Total 1 Balance 499 Intake: IV 500 Sodium Chloride 0.9% 1, 500 000 ml @ 100 mls/hr IV . Q10H [facility] Rx#:[id number] Output: Urine 1 Other: Voiding Method Urinal # Voids 150 Weight 124.284 kg 122.8 kg - Constitutional General appearance: no acute distress - Respiratory Respiratory: bilateral: CTA - Cardiovascular Rhythm: regular Heart sounds: normal: S1, S2 Abnormal Heart Sounds: systolic murmur Results 11/03/18 04:32 11/03/18 04:32 Cardiac Enzymes 11/02/18 11/02/18 11/02/18 Range/Units 21:13 21:13 23:32 AST 36 (17-59) U/L CK-MB (CK-2) 2.1 (0.0-2.4) ng/mL Troponin I 0.062 H* 0.062 H* (0.000-0.034) ng/mL 11/03/18 Range/Units 04:32 AST (17-59) U/L CK-MB (CK-2) (0.0-2.4) ng/mL Troponin I 0.045 H* (0.000-0.034) ng/mL Coagulation 11/02/18 Range/Units 21:13 PT 10.2 (9.0-12.0) sec APTT 25.7 (22.0-30.0) sec Lipids 11/03/18 Range/Units 04:32 Triglycerides 211 H (<150) mg/dL Cholesterol 131 (<200) mg/dL HDL Cholesterol 25 L (40-60) mg/dL CBC 11/02/18 11/03/18 Range/Units 21:13 04:32 WBC 10.7 H 8.6 (3.8-10.6) k/uL RBC 4.83 4.47 (4.30-5.90) m/uL Hgb 13.0 11.7 L (13.0-17.5) gm/dL Hct 39.8 37.1 L (39.0-53.0) % Plt Count 219 197 (150-450) k/uL Comprehensive Metabolic Panel 11/02/18 11/03/18 Range/Units 21:13 04:32 Sodium 138 138 (137-145) mmol/L Potassium 3.4 L 2.9 L (3.5-5.1) mmol/L Chloride 99 104 (98-107) mmol/L Carbon Dioxide 27 25 (22-30) mmol/L BUN 35 H 29 H (9-20) mg/dL Creatinine 1.76 H 1.41 H (0.66-1.25) mg/dL Glucose 261 H 192 H (74-99) mg/dL Calcium 9.9 8.9 (8.4-10.2) mg/dL AST 36 (17-59) U/L ALT 27 (21-72) U/L Alkaline Phosphatase 100 (38-126) U/L Total Protein 8.0 (6.3-8.2) g/dL Albumin 4.4 (3.5-5.0) g/dL Current Medications Generic Name Dose Route Start Last Admin Trade Name Freq PRN Reason Stop Dose Admin Hydrocodone Bitart/Acetaminophen 1 each 11/02/18 22:58 11/03/18 04:06 [place] 7.5-325 PO 1 each DAILY PRN Administration Pain Albuterol Sulfate 2.5 mg 11/02/18 22:58 Ventolin Nebulized INHALATION RT-QID PRN Shortness Of Breath Aspirin 325 mg 11/03/18 09:00 Aspirin PO DAILY [facility] Atorvastatin Calcium 20 mg 11/03/18 21:00 Lipitor PO HS [facility] Cholecalciferol 1,000 unit 11/03/18 09:00 Vitamin D3 (25 Mcg = 1000 Iu) PO DAILY [facility] Clopidogrel Bisulfate 75 mg 11/03/18 09:00 Plavix PO DAILY [facility] Colchicine 0.6 mg 11/03/18 09:00 Colcrys PO DAILY [facility] Furosemide 40 mg 11/03/18 09:00 Lasix PO BID [facility] Gabapentin 300 mg 11/03/18 09:00 Neurontin PO TID [facility] Sodium Chloride 1,000 mls @ 100 mls/hr 11/02/18 23:00 11/02/18 23:02 Saline 0.9% IV 100 mls/hr .Q10H [facility] Administration Potassium Chloride 10 meq/ IV 100 mls @ 100 mls/hr 11/03/18 06:00 11/03/18 06:31 Solution IVPB 11/03/18 11:59 100 mls/hr Q1HR [facility] Administration Protocol Magnesium Sulfate/Dextrose 1 100 mls @ 100 mls/hr 11/03/18 06:15 11/03/18 06:35 gm/ IV Solution IVPB 11/03/18 08:14 100 mls/hr Q1H [facility] Administration Insulin Aspart 70 unit 11/03/18 09:00 Novolog SQ QAM [facility] Insulin Aspart 0 unit 11/03/18 07:30 11/03/18 07:43 Novolog SQ 5 unit ACHS [facility] Administration Protocol Metoprolol Tartrate 50 mg 11/03/18 09:00 Lopressor PO DAILY [facility] Miscellaneous Information 1 each 11/03/18 05:03 Potassium Per Protocol MISCELLANE DAILY PRN Per Protocol Protocol Miscellaneous Information 1 each 11/03/18 06:08 Magnesium Per Protocol MISCELLANE DAILY PRN Per Protocol Protocol Nitroglycerin 0.4 mg 11/02/18 22:56 Nitrostat SUBLINGUAL Q5M PRN Chest Pain Pantoprazole Sodium 40 mg 11/03/18 07:30 Protonix PO DAILY@0730 [facility] Repaglinide 1 mg 11/03/18 09:00 Prandin PO TID [facility] Intake and Output 11/02/18 11/03/18 11/03/18 22:59 06:59 14:59 Intake Total 500 Output Total 1 Balance 499 Intake: IV 500 Sodium Chloride 0.9% 1, 500 000 ml @ 100 mls/hr IV . Q10H [facility] Rx#:[id number] Output: Urine 1 Other: Voiding Method Urinal # Voids 150 Weight 124.284 kg 122.8 kg 11/03/18 04:32 11/03/18 04:32 Assessment and Plan Assessment: Assessment #1 syncopal episode #2 mildly abnormal cardiac enzymes #3 abnormal EKG with prolonged QT #4 known CAD and prior stenting of the LAD and LCx #5 multiple comorbid conditions including hypertension, dyslipidemia, and diabetes Plan #1 the patient could have an acute coronary event. #2 the syncope also could be related to prolonged QT. #3 the patient does not want any invasive procedure at this point #4 I would continue the current medical regimen including aspirin, statin, beta kanchan #5 avoid any medication can prolong the QT #6 avoid any electrolytes imbalance #7 obtain an echocardiogram was Doppler #8 follow-up with the patient Thank you for allowing us participate in his care and we will continue following up with him
[2018-11-03] MEDS ORDERED: NON-FORMULARY DRUG (Aspirin [Adult Low Dose Aspirin Ec] 81 MG) PO SCH (09:00)
[2018-11-03] MEDS ORDERED: INSULIN ASPART (NovoLOG) 100 UNIT/ML VIAL SQ SCH ×2 (09:00)
[2018-11-03] MEDS: REPAGLINIDE 1 MG TAB PO SCH ×3 (09:58→22:23)
[2018-11-03] MEDS: GABAPENTIN 300 MG CAP PO SCH ×3 (09:59→21:07)
[2018-11-03] MEDS: PANTOPRAZOLE 40 MG TABLET PO SCH (09:59)
[2018-11-03] MEDS: COLCHICINE 0.6 MG EACH PO SCH (09:59)
[2018-11-03] MEDS: CHOLECALCIFEROL 1,000 UNIT TAB PO SCH (09:59)
[2018-11-03] MEDS: FUROSEMIDE 40 MG TAB PO SCH ×2 (09:59→21:07)
[2018-11-03] MEDS: ASPIRIN 325 MG TAB PO SCH (09:59)
[2018-11-03] MEDS: CLOPIDOGREL 75 MG TAB PO SCH (09:59)
[2018-11-03] MEDS: METOPROLOL TARTRATE 50 MG TAB PO SCH (10:00)
[2018-11-03] MEDS: SODIUM CHLORIDE 0.9% 1,000 ML IV SCH ×2 (10:16→13:29)
[2018-11-03] MEDS: KETOROLAC 30 MG/ML 1 ML VIAL IVP PRN ×2 (11:36→21:12)
[2018-11-03 12:10] LABS: Glucose,Whole Blood 286 mg/dL (75-99)
--- NOTE | 2018-11-03 12:57 | ECHOF ---
Referral Reason:NSTEMI MEASUREMENTS -------- HEIGHT: 157.5 cm WEIGHT: 122.5 kg BP: RVIDd: 3.1 cm (< 3.3) IVSd: 1.3 cm (0.6 - 1.1) LVIDd: 4.1 cm (3.9 - 5.3) LVPWd: 1.1 cm (0.6 - 1.1) IVSs: 1.6 cm LVIDs: 3.4 cm LVPWs: 1.3 cm Ao Diam: 2.7 cm (2.0 - 3.7) AV Cusp: 1.6 cm (1.5 - 2.6) LA Diam: 4.3 cm (2.7 - 3.8) MV EXCURSION: 16.898 mm (> 18.000) MV EF SLOPE: 77 mm/s (70 - 150) EPSS: 0.3 cm MV E Julián: 0.54 m/s MV DecT: 311 ms MV A Julián: 0.66 m/s MV E/A Ratio: 0.83 RAP: 5.00 mmHg RVSP: 38.12 mmHg FINDINGS -------- Sinus rhythm. This was a technically adequate study. Morbid Obesity The left ventricular size is normal. There is mild concentric left ventricular hypertrophy. Overa ll left ventricular systolic function is normal with, an EF between 55 - 60 %. The right ventricle is normal in size. The left atrium is mildly dilated. The right atrial size is normal. The aortic valve is trileaflet, and appears structurally normal. No aortic stenosis or regurgitation. Mild mitral annular calcification present. Mild mitral regurgitation is present. Mild tricuspid regurgitation present. There is no evidence of pulmonary hypertension. The right v entricular systolic pressure, as measured by Doppler, is 38.12mmHg. The pulmonic valve was not well visualized. The aortic root size is normal. IVC Not well visulized. Echo free space represents a pericardial fat pad. CONCLUSIONS -------- 1. Morbid Obesity 2. The left ventricular size is normal. 3. There is mild concentric left ventricular hypertrophy. 4. Overall left ventricular systolic function is normal with, an EF between 55 - 60 %. 5. The right ventricle is normal in size. 6. The left atrium is mildly dilated. 7. The right atrial size is normal. 8. Interatrial Septum not well visulized. 9. The aortic valve is trileaflet, and appears structurally normal. No aortic stenosis or regurgitati on. 10. Mild mitral annular calcification present. 11. Mild mitral regurgitation is present. 12. Mild tricuspid regurgitation present. 13. There is no evidence of pulmonary hypertension. 14. The right ventricular systolic pressure, as measured by Doppler, is 38.12mmHg. 15. The pulmonic valve was not well visualized. 16. The aortic root size is normal. 17. IVC Not well visulized. 18. Echo free space represents a pericardial fat pad. TAX ASSESSOR: Sherry Kahn RDCS
[2018-11-03] MEDS: INSULIN DETEMIR (LEVEMIR) 100 UNIT/ML SYR SQ SCH (13:30)
--- NOTE | 2018-11-03 16:26 | P.HPIM ---
History of Present Illness H&P Date: 11/03/18 Chief Complaint: Fall This is an 83-year-old gentleman with history of CAD, prior to stenting, diabetes, hypertension, admitted with syncope, fall. Apparently patient had got ten up out of bed during the driver's license reviewing officer hours, did not have his walker at bedside, he ambulated to the bathroom to urinate. He next recalls waking up on the bathroom floor with multiple areas hurting- including right shoulder, left ribs, bilateral knees. Blood sugar elevated on admission. Multiple scabs/abrasions on extremities, left lateral rib bruises. He reports that it took him approximately 3 hours to crawl to his cell phone, 2) daughter. Patient was brought into the ER. Troponins 0.062, 0.062, 0.045. EKG reported normal sinus rhythm, prolonged QT. Chest x-ray reporting increased bilateral infiltrates and atelectasis compared to prior exam. Rib x-ray reported no fractures as subsegmental atelectasis or scarring left lower lobe. 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 Patient reports that he has been having falls for the last year. Patient clearly states that he wants to be a no code, no CPR, no intubation that he does not want any cardiac interventions or invasive procedures. Review of Systems ROS Statement: Those systems with pertinent positive or pertinent negative responses have been documented in the HPI. ROS Other: All systems not noted in ROS Statement are negative. Past Medical History Past Medical History: COPD, Diabetes Mellitus, GERD/Reflux, Hypertension, Myocardial Infarction ([place]), Renal Disease, Sleep Apnea/CPAP/BIPAP, Vascular Disorder Additional Past Medical History / Comment(s): NEUROPATHY FEET, decreased kidney function, uses CPAP Last Myocardial Infarction Date:: 2015 History of Any Multi-Drug Resistant Organisms: None Reported Past Surgical History: Heart Catheterization, Heart Catheterization With Stent, Tonsillectomy Additional Past Surgical History / Comment(s): EGD, COLONOSCOPY, sinus surg. x3 Past Anesthesia/Blood Transfusion Reactions: No Reported Reaction Date of Last Stent Placement:: 2015 Past Psychological History: No Psychological Hx Reported Additional Psychological History / Comment(s): Pt resides alone. He has a cane and a walker which he uses prn. He drives. He is independent. Smoking Status: Former smoker Past Alcohol Use History: None Reported Additional Past Alcohol Use History / Comment(s): QUIT SMOKING 2006, SMOKED FROM AGE 1947- 3 TO 3 AND 1/2PPD Past Drug Use History: None Reported - Past Family History Father Family Medical History: Cancer, Myocardial Infarction ([place]) Additional Family Medical History / Comment(s): Father had bone cancer. He at the age of 80yrs. Mother Family Medical History: AFIB, Myocardial Infarction ([place]) Additional Family Medical History / Comment(s): Mother when she 82 years old and of a heart attack Medications and Allergies Home Medications Medication Instructions Recorded Confirmed Type Omeprazole [PriLOSEC] 20 mg PO DAILY 06/11/14 11/02/18 History Simvastatin [Zocor] 40 mg PO HS 06/11/14 11/02/18 History Hydrocodone/Acetaminophen [[place] 1 tab PO DAILY PRN 10/12/15 11/02/18 History 7.5-325] Clopidogrel [Plavix] 75 mg PO DAILY #90 tab 08/17/17 11/02/18 Rx Furosemide [Lasix] 40 mg PO BID 10/16/17 11/02/18 History Gabapentin [Neurontin] 300 mg PO TID 10/16/17 11/02/18 History Metoprolol Tartrate [Lopressor] 50 mg PO DAILY 10/16/17 11/02/18 History Repaglinide 1 mg PO TID 10/16/17 11/02/18 History Aspirin [Adult Low Dose Aspirin EC] 81 mg PO DAILY 06/16/18 11/02/18 History Fexofenadine HCl [Mercedes Allergy] 180 mg PO DAILY 09/27/18 11/02/18 History Albuterol Nebulized [Ventolin 2.5 mg INHALATION RT-QID PRN 11/02/18 11/02/18 History Nebulized] Cholecalciferol [Vitamin D3 (25 1,000 unit PO DAILY 11/02/18 11/02/18 History Mcg = 1000 Iu)] Colchicine [Colcrys] 0.6 mg PO DAILY 11/02/18 11/02/18 History Insulin Glargine/Lixisenatide 20 units SQ DAILY 11/03/18 11/03/18 History [[place] 100 Unit-33 Mcg/ml Pen] Allergies Allergy/AdvReac Type Severity Reaction Status Date / Time No Known Allergies Allergy Verified 11/02/18 21:15 Physical Exam Vitals: Vital Signs Temp Pulse Resp BP Pulse Ox 11/03/18 12:00 98.4 F 66 12 118/72 93 L 11/03/18 11:00 80 23 126/65 94 L 11/03/18 10:00 80 14 121/61 91 L 11/03/18 09:00 92 12 110/58 91 L 11/03/18 08:00 98.3 F 90 16 109/64 92 L 11/03/18 07:00 84 15 109/58 93 L 11/03/18 06:00 90 13 113/55 92 L 11/03/18 05:00 89 15 113/57 91 L 11/03/18 04:00 98.0 F 87 12 100/54 92 L 11/03/18 03:00 83 25 H 128/62 91 L 11/03/18 02:00 89 12 96/57 93 L 11/03/18 01:00 81 14 105/59 94 L 11/03/18 00:00 98.3 F 82 10 L 95/56 92 L 11/02/18 23:15 77 18 99/51 97 11/02/18 23:00 98 20 99/51 97 11/02/18 20:12 99.1 F 98 18 98/50 90 L Intake and Output 11/03/18 11/03/18 11/03/18 06:59 14:59 22:59 Intake Total 500 1250 Output Total 1 650 Balance 499 600 Intake: IV 500 900 Magnesium Sulfate-D5w Pmx 200 1 gm In Dextrose/Water 1 100ml.bag @ 100 mls/hr IVPB Q1H [facility] Rx#: [id number] Potassium Chloride 10 meq 600 In Water For Injection 1 100ml.bag @ 100 mls/hr IVPB Q1HR [facility] Rx#: [id number] Sodium Chloride 0.9% 1, 500 100 000 ml @ 100 mls/hr IV . Q10H [facility] Rx#:[id number] Oral 350 Output: Urine 1 650 Other: Voiding Method Urinal # Voids 150 Weight 122.8 kg PHYSICAL EXAM: VITAL SIGNS: As above GENERAL: Sitting up in chair, no acute distress HEENT: Conjunctivae normal. eyes normal. Oral mucosa moist NECK: No JVD. No thyroid enlargement. No LNs CARDIOVASCULAR: S1, S2 regular, systolic murmur RESPIRATION: Breath sounds diminished in the bases. No rhonchi or crackles. No bronchial breathing. ABDOMEN: Soft, nontender . No guarding. no masses palpable. Bowel sounds hear d. LEGS: No edema. no swelling PSYCHIATRY: Alert and oriented -3, mood and affect normal. NERVOUS SYSTEM: Cranial N 2-12 grossly normal. Moves all 4 limbs. Diffuse weakness No focal deficits. No sensory deficit. Skin: Multiple abrasions, scabs on extremities, feet with bruising on right shoulder, left lateral rib cage. Left foot second toe-nail removed. Joints: No active swelling. No inflammation. Lymphatic system. No LN neck axilla or groin. Results CBC & Chem 7: 11/03/18 04:32 11/03/18 04:32 Labs: Abnormal Lab Results - Last 24 Hours (Table) 11/02/18 11/02/18 11/02/18 Range/Units 21:13 21:13 21:13 WBC 10.7 H (3.8-10.6) k/uL Hgb (13.0-17.5) gm/dL Hct (39.0-53.0) % RDW 16.9 H (11.5-15.5) % Neutrophils # 8.4 H (1.3-7.7) k/uL Potassium 3.4 L (3.5-5.1) mmol/L BUN 35 H (9-20) mg/dL Creatinine 1.76 H (0.66-1.25) mg/dL Glucose 261 H (74-99) mg/dL POC Glucose (mg/dL) (75-99) mg/dL Creatine Kinase 575 H (55-170) U/L Troponin I 0.062 H* (0.000-0.034) ng/mL Triglycerides (<150) mg/dL HDL Cholesterol (40-60) mg/dL Urine Protein (Negative) Urine Glucose (UA) (Negative) Hyaline Casts (0-2) /lpf 11/02/18 11/02/18 11/03/18 Range/Units 23:32 23:42 03:00 WBC (3.8-10.6) k/uL Hgb (13.0-17.5) gm/dL Hct (39.0-53.0) % RDW (11.5-15.5) % Neutrophils # (1.3-7.7) k/uL Potassium (3.5-5.1) mmol/L BUN (9-20) mg/dL Creatinine (0.66-1.25) mg/dL Glucose (74-99) mg/dL POC Glucose (mg/dL) 229 H (75-99) mg/dL Creatine Kinase (55-170) U/L Troponin I 0.062 H* (0.000-0.034) ng/mL Triglycerides (<150) mg/dL HDL Cholesterol (40-60) mg/dL Urine Protein 1+ H (Negative) Urine Glucose (UA) 2+ H (Negative) Hyaline Casts 9 H (0-2) /lpf 11/03/18 11/03/18 11/03/18 Range/Units 04:32 04:32 04:32 WBC (3.8-10.6) k/uL Hgb 11.7 L (13.0-17.5) gm/dL Hct 37.1 L (39.0-53.0) % RDW 16.8 H (11.5-15.5) % Neutrophils # (1.3-7.7) k/uL Potassium 2.9 L (3.5-5.1) mmol/L BUN 29 H (9-20) mg/dL Creatinine 1.41 H (0.66-1.25) mg/dL Glucose 192 H (74-99) mg/dL POC Glucose (mg/dL) (75-99) mg/dL Creatine Kinase (55-170) U/L Troponin I 0.045 H* (0.000-0.034) ng/mL Triglycerides 211 H (<150) mg/dL HDL Cholesterol 25 L (40-60) mg/dL Urine Protein (Negative) Urine Glucose (UA) (Negative) Hyaline Casts (0-2) /lpf 11/03/18 11/03/18 Range/Units 07:05 12:07 WBC (3.8-10.6) k/uL Hgb (13.0-17.5) gm/dL Hct (39.0-53.0) % RDW (11.5-15.5) % Neutrophils # (1.3-7.7) k/uL Potassium (3.5-5.1) mmol/L BUN (9-20) mg/dL Creatinine (0.66-1.25) mg/dL Glucose (74-99) mg/dL POC Glucose (mg/dL) 232 H 286 H (75-99) mg/dL Creatine Kinase (55-170) U/L Troponin I (0.000-0.034) ng/mL Triglycerides (<150) mg/dL HDL Cholesterol (40-60) mg/dL Urine Protein (Negative) Urine Glucose (UA) (Negative) Hyaline Casts (0-2) /lpf Thrombosis Risk Factor Assmnt - Choose All That Apply Each Factor Represents 1 point: Abnormal pulmonary function (COPD) Each Risk Factor Represents 3 Points: Age 75 years or older Thrombosis Risk Factor Assessment Total Risk Factor Score: 4 Thrombosis Risk Factor Assessment Level: Moderate Risk Assessment and Plan Assessment: -Syncope, status post fall in a patient with history of multiple falls. Syncope possibly related to prolonged QT -Abrasions of bilateral knees, right shoulder, left ribs with no fractures reported per radiology films -Elevated troponin -Abnormal EKG with prolonged QT -CAD with history of stenting -Diabetes mellitus -Hypertension -Dyslipidemia -No code, no CPR, no intubation Plan: Continue on current medication regime , aspirin, beta kanchan, statin ,monitoring and symptomatic treatment. Avoid any QT prolonging medications .Car diology and neurology consulted. Echo ordered .PT/OT. Social work consult; discussed subacute rehab, not living alone, possibly living with daughter and to obtain "lifeline". Hemoglobin A1c ordered. Prognosis guarded given multiple complex medical issues. Home meds have been reviewed and resumed. Further recommendations to follow. GI and DVT prophylaxis in place. The impression and plan of care has been dictated as directed. : I performed a history and examination of this patient, discussed the same with the dictator. I agree with the dictator's note ,documented as a scribe. Any additional findings or plans will be noted. Time taken: 35 minutes
[2018-11-03 17:04] LABS: Glucose,Whole Blood 182 mg/dL (75-99)
[2018-11-03] MEDS ORDERED: ATORVASTATIN 20 MG TAB PO SCH (21:00)
[2018-11-03 21:02] LABS: Glucose,Whole Blood 220 mg/dL (75-99)
[2018-11-04 04:42] LABS: Anisocytosis Slight; HCT 34.6 % (39.0-53.0); HGB 10.7 gm/dL (13.0-17.5); MCH 25.8 pg (25.0-35.0); MCHC 30.9 g/dL (31.0-37.0); MCV 83.3 fL (80.0-100.0); Mean Platelet Volume 8.1; Platelet Count 180 k/uL (150-450); Poikilocytosis Slight; RBC 4.15 m/uL (4.30-5.90); RDW 16.8 % (11.5-15.5); WBC 6.2 k/uL (3.8-10.6)
[2018-11-04 04:54] LABS: Calcium 8.4 mg/dL (8.4-10.2); Magnesium 1.9 mg/dL (1.6-2.3); Potassium 3.5 mmol/L (3.5-5.1)
[2018-11-04] MEDS: INSULIN ASPART (NovoLOG) 100 UNIT/ML VIAL SQ SCH ×4 (07:12→12:31)
[2018-11-04] MEDS: SODIUM CHLORIDE 0.9% 1,000 ML IV SCH (07:13)
[2018-11-04] MEDS: PANTOPRAZOLE 40 MG TABLET PO SCH (07:13)
--- NOTE | 2018-11-04 07:27 | P.PN ---
Subjective Progress Note Date: 11/04/18 Principal diagnosis: Syncope This is a pleasant 83-year-old gentleman who sees Dr. Zamudio in the office as an outpatient with a past medical history significant for coronary artery disease and prior stenting of the left anterior descending artery as well as left circumflex performed in July 2017, diabetes, hypertension, dyslipidemia, presented to the hospital after he lost his consciousness. The patient state that he was walking to the bathroom yesterday around 2:00 in the morning and then the last thing he remembered that he was laying on the floor of the bathroom. The patient also stated that he has been feeling weak since then. He denies any symptoms of chest pain, chest discomfort, shortness of breath, dizziness, or any feeling of heart racing or fluttering around the episode. The only complaint he has at this point in his right shoulder and left rib pain but he underwent an x-ray which came in to be unremarkable and without any abnormalities. The EKG showed sinus rhythm with nonspecific changes and prolonged QT. The patient is not on any medications Cause prolonged QT. The cardiac enzymes were checked and came in to be slightly abnormal. The chest x- ray did not show any acute abnormalities. Currently the patient is on medical treatment consistent of aspirin, metoprolol, as well as a statin. He states clearly that he does not want any intervention on the heart to be done and he wants to be DO NOT RESUSCITATE only. He does not want any invasive procedure to be done as well. On follow-up with the patient today, 11/04/2018, the patient is asymptomatic from the cardiovascular standpoint overview. He is hemodynamically stable as w ell. The patient would like to be discharged home. The echocardiogram showed normal LV function without any evidence of wall motion abnormalities. He can be discharged home. Objective - Vital Signs Vital signs: Vital Signs Temp 98.8 F 11/04/18 04:00 Pulse 70 11/04/18 04:00 Resp 23 11/04/18 04:00 BP 129/66 11/04/18 04:00 Pulse Ox 95 11/04/18 04:00 Intake & Output 11/03/18 11/04/18 11/04/18 18:59 06:59 18:59 Intake Total 2150 900 Output Total 850 700 Balance 1300 200 Weight 121.4 kg Intake: IV 1300 900 Magnesium Sulfate-D5w Pmx 200 1 gm In Dextrose/Water 1 100ml.bag @ 100 mls/hr IVPB Q1H [facility] Rx#: [id number] Potassium Chloride 10 meq 600 In Water For Injection 1 100ml.bag @ 100 mls/hr IVPB Q1HR [facility] Rx#: [id number] Sodium Chloride 0.9% 1, 500 900 000 ml @ 100 mls/hr IV . Q10H [facility] Rx#:[id number] Oral 850 Output: Urine 850 700 Other: Voiding Method Urinal - Constitutional General appearance: Present: no acute distress - Respiratory Respiratory: bilateral: CTA - Cardiovascular Rhythm: regular Heart sounds: normal: S1, S2 - Labs CBC & Chem 7: 11/04/18 04:20 11/04/18 04:20 Labs: Abnormal Lab Results - Last 24 Hours (Table) 11/03/18 11/03/18 11/03/18 Range/Units 12:07 17:02 21:00 RBC (4.30-5.90) m/uL Hgb (13.0-17.5) gm/dL Hct (39.0-53.0) % MCHC (31.0-37.0) g/dL RDW (11.5-15.5) % BUN (9-20) mg/dL Creatinine (0.66-1.25) mg/dL Glucose (74-99) mg/dL POC Glucose (mg/dL) 286 H 182 H 220 H (75-99) mg/dL 11/04/18 11/04/18 Range/Units 04:20 04:20 RBC 4.15 L (4.30-5.90) m/uL Hgb 10.7 L (13.0-17.5) gm/dL Hct 34.6 L (39.0-53.0) % MCHC 30.9 L (31.0-37.0) g/dL RDW 16.8 H (11.5-15.5) % BUN 26 H (9-20) mg/dL Creatinine 1.35 H (0.66-1.25) mg/dL Glucose 118 H (74-99) mg/dL POC Glucose (mg/dL) (75-99) mg/dL Microbiology - Last 24 Hours (Table) 11/03/18 00:17 Blood Culture - Preliminary Blood No Growth after 24 hours Assessment and Plan Assessment: Assessment #1 syncopal episode #2 mildly abnormal cardiac enzymes #3 abnormal EKG with prolonged QT #4 known CAD and prior stenting of the LAD and LCx #5 multiple comorbid conditions including hypertension, dyslipidemia, and diabetes Plan #1 the patient remained asymptomatic. #2 he remains hemodynamically stable #3 he would like to be discharged home. Thank you for allowing us participate in his care
[2018-11-04 07:28] LABS: Glucose,Whole Blood 160 mg/dL (75-99)
[2018-11-04] MEDS: CHOLECALCIFEROL 1,000 UNIT TAB PO SCH (09:56)
[2018-11-04] MEDS: FUROSEMIDE 40 MG TAB PO SCH (09:56)
[2018-11-04] MEDS: METOPROLOL TARTRATE 50 MG TAB PO SCH (09:56)
[2018-11-04] MEDS: ASPIRIN 325 MG TAB PO SCH (09:56)
[2018-11-04] MEDS: CLOPIDOGREL 75 MG TAB PO SCH (09:56)
[2018-11-04] MEDS: GABAPENTIN 300 MG CAP PO SCH (09:56)
[2018-11-04] MEDS: COLCHICINE 0.6 MG EACH PO SCH (09:56)
[2018-11-04] MEDS: INSULIN DETEMIR (LEVEMIR) 100 UNIT/ML SYR SQ SCH (09:57)
[2018-11-04] MEDS: REPAGLINIDE 1 MG TAB PO SCH (09:57)
[2018-11-04 11:51] LABS: Glucose,Whole Blood 245 mg/dL (75-99)
[2018-11-04 12:30] VITALS: BP 118/70; PULSE 65; RESP 20; TEMP 98.5
--- NOTE | 2018-11-07 10:27 | CDI ---
Documentation Clarification Form Date: 11/07/2018 10:12:35 AM From: Francisca Ortega RN, CCDS Admit Date: 11/02/2018 10:58:00 PM Patient Name: Migeul Grace Visit Number: [id number] Discharge Date: 11/04/2018 2:00:00 PM ATTENTION: The Clinical Documentation Specialists (CDI) and [employer] Coding Staff appreciate your assistance in clarifying documentation. Please respond to the clarification below the line at the bottom and electronically sign. The CDI & [employer] Coding staff will review the response and follow-up if needed. Please note: Queries are made part of the Legal Health Record. If you have any questions, please contact the author of this message via ITS. Dr. Miguel Parra Renal Disease was documented in the PMH of the H&P, but requires further specificity based on Lab results and treatment. History/Risk Factors: COPD, DM, GERD, HTN, DE, Renal disease 06/16/18 Patients baseline BUN/CR/GFR: 45/2.14/28 Clinical Indicators: Current BUN: 35// Cr: 1.76/1.41/1.35 GFR: 36/47/49 Treatment: IVF : 500 cc bolus followed by 100cc/hr In order to capture the severity of condition, please clarify if the condition signifies: Acute on chronic renal failure CKD Stage 1 GFR >90 CKD Stage 2 GFR 60-89 CKD Stage 3 GFR 30-59 CKD Stage 4 GFR 15-29 Chronic renal failure/Chronic Kidney disease (CKD) please stage (if known): CKD Stage 1 GFR >90 CKD Stage 2 GFR 60-89 CKD Stage 3 GFR 30-59 CKD Stage 4 GFR 15-29 Other, please specify Unable to determine (Last Revision: September 2017) MTDD
--- NOTE | 2018-11-08 11:40 | DS ---
DISCHARGE SUMMARY ADDENDUM: Please add: Chronic kidney disease, stage 3A. MMODL / IJN: [id number] /
== END 2018-11-04 14:00 | disposition home or self-care (01) | DRG 310 ==
LOC: EC 19:46 → 2SICU 22:58
PROVIDERS: ADMIT Family Medicine; ATTEND Family Medicine
DX: I45.81 Long QT syndrome (principal); R55 Syncope and collapse; R77.8 Other specified abnormalities of plasma proteins; I25.10 Atherosclerotic heart disease of native coronary artery without angina pectoris; R29.6 Repeated falls; Z66 Do not resuscitate; E78.5 Hyperlipidemia, unspecified; J44.9 Chronic obstructive pulmonary disease, unspecified; E11.42 Type 2 diabetes mellitus with diabetic polyneuropathy; K21.9 Gastro-esophageal reflux disease without esophagitis; G47.30 Sleep apnea, unspecified; E11.65 Type 2 diabetes mellitus with hyperglycemia; M19.90 Unspecified osteoarthritis, unspecified site; S20.212A Contusion of left front wall of thorax, initial encounter; M25.511 Pain in right shoulder; S80.211A Abrasion, right knee, initial encounter; S80.212A Abrasion, left knee, initial encounter; E11.22 Type 2 diabetes mellitus with diabetic chronic kidney disease; R53.1 Weakness; I12.9 Hypertensive chronic kidney disease with stage 1 through stage 4 chronic kidney disease, or unspecified chronic kidney disease; N18.3 Chronic kidney disease, stage 3 (moderate); W18.30XA Fall on same level, unspecified, initial encounter; Z95.5 Presence of coronary angioplasty implant and graft; Y92.002 Bathroom of unspecified non-institutional (private) residence as the place of occurrence of the external cause; I25.2 Old myocardial infarction; Z99.89 Dependence on other enabling machines and devices; Z79.02 Long term (current) use of antithrombotics/antiplatelets; Z79.4 Long term (current) use of insulin; Z79.82 Long term (current) use of aspirin; Z79.899 Other long term (current) drug therapy; Z87.891 Personal history of nicotine dependence; Z91.81 History of falling; Z82.49 Family history of ischemic heart disease and other diseases of the circulatory system; Z80.8 Family history of malignant neoplasm of other organs or systems
CPT/HCPCS: 36415; 71045; 80048; 80053; 80061; 81001; 82550; 82553; 83605; 83735; 84132; 84484; 85025; 85027; 85610; 85730; 87040; 93005; 93306; 96360; 99284

== ENCOUNTER → 2018-12-21 | Outpatient (CLI) | payer MEDICARE, OTHER ==
--- NOTE | 2018-12-21 09:26 | CT ---
EXAMINATION TYPE: CT chest wo con DATE OF EXAM: 12/21/2018 COMPARISON: 04/24/2018 HISTORY: 83-year-old male Right mid lung mass TECHNIQUE: Contiguous axial scanning of the chest without IV contrast. Coronal and sagittal reconstru ctions performed. CT DLP: 828.0 mGycm Automated exposure control for dose reduction was used. FINDINGS: Lack of IV contrast limits assessment of the mediastinal/hilar and vascular structures. Heart normal size without pericardial effusion. Coronary vessel calcifications are present. Mild atherosclerotic arch calcifications with conventional arch vessel branching anatomy. Borderline ectatic ascending aorta 3.6 cm. Large caliber to the main right and left pulmonary arteries measuring up to 2.8 cm. Pretracheal lymph node remains enlarged at 1.4 cm. AP window lymph node remains enlarged at 1.1 cm. P recarinal lymph node 1.2 cm. Subcarinal lymph node 1.3 cm. No definite progressive mediastinal lympha denopathy. Moderate centrilobular emphysema is redemonstrated with right hilar mass extending into the midlung a long the junction of the major and minor fissures. This is stable to minimally larger measuring 4.0 c m craniocaudal, coronal image 58 versus 3.4 cm, previously. Difficult to measure with as it blends wi th right hilar structures, estimated 5.6 cm versus 5.2 cm, previously. AP measurement of 3.6 cm versu s 3.0 cm, previously. There is redemonstrated small amount of invasion into the right middle lobe bro nchus, coronal image 61. Some of the previous peripheral right basilar tree-in-bud opacities have improved. Other patchy bibas ilar densities, probable scarring or atelectasis are similar. A 7 mm peripheral right basilar pulmonary nodule is smaller from 9 mm, previously. Spleen remains enlarged at 15.3 cm. Adrenal glands are clear. Endplate spondylosis mid to lower thoracic spine. IMPRESSION: 1. Right midlung mass along the junction of the major and minor fissures extends to the hilum blendin g with hilar structures making measurements difficult. It is estimated to measure 5.6 x 3.6 x 4.0 cm (versus 5.2 x 3.0 x 3.4 cm, previously), minimally larger now. Consider the next follow-up utilizing IV contrast. Similar small area of endobronchial invasion into the right middle lobe bronchus. 2. Mediastinal lymphadenopathy measuring up to 1.4 cm remain stable. 3. Upper for right basilar pulmonary nodule is minimally smaller at 7 mm (versus 9 mm, previously). 4. COPD, pulmonary arterial hypertension, and CAD. Splenomegaly at 15.3 cm.
== END | disposition home or self-care (01) ==
LOC: RADCTMAIN 07:52
PROVIDERS: ATTEND Internal Medicine
DX: J44.9 Chronic obstructive pulmonary disease, unspecified (principal); I27.21 Secondary pulmonary arterial hypertension; I25.10 Atherosclerotic heart disease of native coronary artery without angina pectoris
CPT/HCPCS: 71250

== ENCOUNTER → 2018-12-30 | Outpatient (CLI) | payer MEDICARE, OTHER ==
--- NOTE | 2019-01-03 07:19 | PE ---
EXAMINATION TYPE: PET CT fusion skull to thigh DATE OF EXAM: 12/30/2018 COMPARISON: CT abdomen and pelvis October 20, 2018. Chest CT December 21, 2018 HISTORY: Solitary pulmonary nodule, abnormal CT. TECHNIQUE: Following the intravenous administration of 11.703 mCi of F-18 FDG, whole body images are performed from the skull base to the midthigh. Images are reviewed on the computer in the coronal, axial, and sagittal planes. Reconstructed rotating images are created on independent workstation and reviewed on the computer. A noncontrast CT is performed in conjunction with the PET scan. SCAN: Initial Scan FINDINGS: SKULL BASE AND NECK: No areas of suspicious hypermetabolic uptake. CHEST, MEDIASTINUM, AND HILAR REGION: Respiratory motion artifact degradation noted. Background moder ate emphysematous change redemonstrated. Persistent spiculated right hilar hypermetabolic mass measur ing approximately 5.2 x 3.5 cm axial image 93 with max SUV of 12.28. There are prominent but subcentimeter thoracic lymph nodes including paratracheal region and subcarin al level without definitive abnormal hypermetabolic uptake. No additional hypermetabolic masses or no dules are clearly seen. ABDOMEN AND PELVIS: Normal bowel uptake is felt present. No suspicious hypermetabolic uptake is clear ly seen. OSSEOUS STRUCTURES: No suspicious hypermetabolic uptake is seen. OTHER CT: Moderate to severe calcified plaque bilateral carotid bulb level is present. There is moderate to severe three-vessel coronary artery calcification which is noted marker for unde rlying coronary artery disease. No adrenal masses. Moderate calcified plaque of the aorta extends into iliac branch vessels. Aorta is ectatic measuring up to 3.0 cm transversely axial image 177. 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 I suspect stable 6 mm left renal calculus lower Pole level axial i mage 179. There is multilevel spurring in the spine. There is facet arthropathy in the lower lumbar spine. 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 No metastatic diseas e or additional adenopathy is clearly identified. Advise bronchoscopy for sampling for tissue confirm ation.
== END | disposition home or self-care (01) ==
LOC: RADPETMAIN 13:50
PROVIDERS: ATTEND Internal Medicine
DX: R91.8 Other nonspecific abnormal finding of lung field (principal)
CPT/HCPCS: 78815; A9552

== ENCOUNTER 2019-02-05 08:51 | Observation (INO) | payer MEDICARE, OTHER ==
[2019-02-05] MEDS ORDERED: HYDROmorphone 1 MG/ML 1 ML SYRINGE IM STA (09:35)
--- NOTE | 2019-02-05 09:51 | ED ---
Extremity Problem HPI <Brandon Talley - Last Filed: 02/05/19 13:25> - General Source: patient, family, RN notes reviewed Mode of arrival: wheelchair Limitations: no limitations <Ishmael Alford - Last Filed: 02/05/19 13:35> - General Chief complaint: Extremity Problem,Nontraumatic Stated complaint: rt leg/hip pain Time Seen by Provider: 02/05/19 09:22 - History of Present Illness Initial comments: 83-year-old male presents emergency Department chief complaint right leg, right hip pain. Patient states has been progressively worse over last 3 days with no trauma. Patient states that his right lateral hip portion and lays down to his knee. He states it is extremely painful with any movement. Denies any discoloration of his lower extremities denies any fevers or chills no history of back or hip problems no prior surgeries. He has no complaint abdominal pain, chest pain, numbness or tingling. Patient states that nothing is helping his pain at this time. (Ishmael Alford) - Related Data Home Medications Medication Instructions Recorded Confirmed Omeprazole [PriLOSEC] 20 mg PO DAILY 06/11/14 02/05/19 Simvastatin [Zocor] 40 mg PO HS 06/11/14 02/05/19 Hydrocodone/Acetaminophen [[place] 1 tab PO DAILY PRN 10/12/15 02/05/19 7.5-325] Furosemide [Lasix] 40 mg PO BID 10/16/17 02/05/19 Gabapentin [Neurontin] 300 mg PO TID 10/16/17 02/05/19 Metoprolol Tartrate [Lopressor] 50 mg PO DAILY 10/16/17 02/05/19 Repaglinide 1 mg PO TID 10/16/17 02/05/19 Aspirin [Adult Low Dose Aspirin EC] 81 mg PO DAILY 06/16/18 02/05/19 Fexofenadine HCl [Mercedes Allergy] 180 mg PO DAILY 09/27/18 02/05/19 Albuterol Nebulized [Ventolin 2.5 mg INHALATION RT-QID PRN 11/02/18 02/05/19 Nebulized] Cholecalciferol [Vitamin D3 (25 1,000 unit PO DAILY 11/02/18 02/05/19 Mcg = 1000 Iu)] INSULIN LISPRO (HumaLOG) [HumaLOG] 20 units SQ AC-TID 11/03/18 02/05/19 metFORMIN HCL [Glucophage] 500 mg PO DAILY 02/05/19 02/05/19 Allergies Allergy/AdvReac Type Severity Reaction Status Date / Time No Known Allergies Allergy Verified 02/05/19 09:30 Review of Systems ROS Other: All systems not noted in ROS Statement are negative. <Brandon Talley - Last Filed: 02/05/19 13:25> ROS Other: All systems not noted in ROS Statement are negative. <Ishmael Alford - Last Filed: 02/05/19 13:35> ROS Statement: Those systems with pertinent positive or pertinent negative responses have been documented in the HPI. Past Medical History Past Medical History: COPD, Diabetes Mellitus, GERD/Reflux, Hypertension, Myocardial Infarction ([place]), Renal Disease, Sleep Apnea/CPAP/BIPAP, Vascular Disorder Additional Past Medical History / Comment(s): NEUROPATHY FEET, decreased kidney function, uses CPAP Last Myocardial Infarction Date:: 2015 History of Any Multi-Drug Resistant Organisms: None Reported Past Surgical History: Heart Catheterization, Heart Catheterization With Stent, Tonsillectomy Additional Past Surgical History / Comment(s): EGD, COLONOSCOPY, sinus surg. x3 Past Anesthesia/Blood Transfusion Reactions: No Reported Reaction Date of Last Stent Placement:: 2015 Past Psychological History: No Psychological Hx Reported Smoking Status: Former smoker Past Alcohol Use History: None Reported Past Drug Use History: None Reported - Past Family History Father Family Medical History: Cancer, Myocardial Infarction ([place]) Additional Family Medical History / Comment(s): Father had bone cancer. He at the age of 80yrs. Mother Family Medical History: AFIB, Myocardial Infarction ([place]) Additional Family Medical History / Comment(s): Mother when she 82 years old and of a heart attack <Ishmael Alford - Last Filed: 02/05/19 13:35> General Exam Limitations: no limitations General appearance: alert, in no apparent distress Head exam: Present: atraumatic, normocephalic, normal inspection Eye exam: Present: normal appearance, PERRL, EOMI. Absent: scleral icterus, conjunctival injection, periorbital swelling ENT exam: Present: normal exam, normal oropharynx, mucous membranes moist Respiratory exam: Present: normal lung sounds bilaterally. Absent: respiratory distress, wheezes, rales, rhonchi, stridor Cardiovascular Exam: Present: regular rate, normal rhythm, normal heart sounds. Absent: systolic murmur, diastolic murmur, rubs, gallop, clicks GI/Abdominal exam: Present: soft, normal bowel sounds. Absent: distended, tenderness, guarding, rebound, rigid Extremities exam: Present: other (Right hip there is tenderness on the lateral portion down to the right knee there is equal pedal pulses posterior tibialis and dorsal pedal with fecal: Equal warmth there is limited range of motion of the right hip secondary to pain) Back exam: Present: full ROM. Absent: tenderness, paraspinal tenderness, vertebral tenderness Neurological exam: Present: alert, oriented X3, CN II-XII intact Skin exam: Present: warm, dry, intact, normal color. Absent: rash <Ishmael Alford - Last Filed: 02/05/19 13:35> Course <Brandon Talley - Last Filed: 02/05/19 13:25> Vital Signs 02/05/19 09:00 Temperature 97.5 F L Pulse Rate 104 H Respiratory 18 Rate Blood Pressure 128/72 O2 Sat by Pulse 93 L Oximetry - Reevaluation(s) Reevaluation #1: 02/05/19 13:25 Case discussed with practitioner Ishmael. Chart reviewed. Results reviewed. Case also discussed with Dr. Parra, who will admit his patient. Orthopedics will be placed on consult. (Brandon Talley) Medical Decision Making - Lab Data Result diagrams: 02/05/19 11:37 02/05/19 11:37 <Brandon Talley - Last Filed: 02/05/19 13:25> - Lab Data Result diagrams: 02/05/19 11:37 02/05/19 11:37 <Ishmael Alford - Last Filed: 02/05/19 13:35> - Medical Decision Making 83-year-old male presented from for right hip and right leg pain which has been intractable emergency department. Labs ultrasound x-ray CT with no significant findings other than degenerative back. Patient will be admitted for further ev aluation as he is unable to ambulate. (Ishmael Alford) - Lab Data Lab Results 02/05/19 02/05/19 02/05/19 Range/Units 11:37 11:37 11:37 WBC 9.5 (3.8-10.6) k/uL RBC 4.71 (4.30-5.90) m/uL Hgb 12.5 L (13.0-17.5) gm/dL Hct 39.6 (39.0-53.0) % MCV 84.1 (80.0-100.0) fL MCH 26.6 (25.0-35.0) pg MCHC 31.7 (31.0-37.0) g/dL RDW 19.5 H (11.5-15.5) % Plt Count 249 (150-450) k/uL Neutrophils % 81 % Lymphocytes % 12 % Monocytes % 3 % Eosinophils % 2 % Basophils % 1 % Neutrophils # 7.8 H (1.3-7.7) k/uL Lymphocytes # 1.1 (1.0-4.8) k/uL Monocytes # 0.3 (0-1.0) k/uL Eosinophils # 0.2 (0-0.7) k/uL Basophils # 0.1 (0-0.2) k/uL Hypochromasia Slight Poikilocytosis Slight Anisocytosis Slight Sodium 140 (137-145) mmol/L Potassium 4.5 (3.5-5.1) mmol/L Chloride 100 (98-107) mmol/L Carbon Dioxide 27 (22-30) mmol/L Anion Gap 13 mmol/L BUN 33 H (9-20) mg/dL Creatinine 1.81 H (0.66-1.25) mg/dL Est GFR (CKD-EPI)AfAm 40 (>60 ml/min/1.73 sqM) Est GFR (CKD-EPI)NonAf 34 (>60 ml/min/1.73 sqM) Glucose 280 H (74-99) mg/dL Plasma Lactic Acid Chang 1.2 (0.7-2.0) mmol/L Calcium 9.4 (8.4-10.2) mg/dL Total Bilirubin 0.5 (0.2-1.3) mg/dL AST 27 (17-59) U/L ALT 17 L (21-72) U/L Alkaline Phosphatase 98 (38-126) U/L C-Reactive Protein 40.9 H (<10.0) mg/L Total Protein 8.6 H (6.3-8.2) g/dL Albumin 4.4 (3.5-5.0) g/dL Disposition <Brandon Talley - Last Filed: 02/05/19 13:25> <Ishmael Alford - Last Filed: 02/05/19 13:35> Clinical Impression: Leg pain, Intractable pain, Unable to ambulate Disposition: ADMITTED IP TO THIS [facility] Condition: Stable Referrals: Miguel Parra MD [Primary Care Provider] - 1-2 days
--- NOTE | 2019-02-05 10:00 | XR ---
EXAMINATION TYPE: XR Hip RT and AP Pelvis DATE OF EXAM: 02/05/2019 CLINICAL HISTORY: pain TECHNIQUE: Single view the pelvis is submitted. 2 views of the right hip are also submitted. FINDINGS: No evidence for fracture, dislocation or bony lesion. Joint spaces are mildly narrowed.. SI joints appear symmetric. IMPRESSION: 1. No acute fracture or dislocation seen. ICD 10 NO FRACTURE, INITIAL EVALUATION
--- NOTE | 2019-02-05 10:01 | XR ---
EXAMINATION TYPE: XR lumbosacral spine min 4V DATE OF EXAM: 02/05/2019 CLINICAL HISTORY: pain COMPARISON: NONE TECHNIQUE: Frontal, lateral, and oblique images of the lumbar spine are obtained. FINDINGS: There are 5 lumbar type vertebral bodies identified. Mild curvature convex to the left. Gr willy 1 retrolisthesis L3 on L4 measuring 7 mm. Moderate degenerative disc space narrowing throughout. Severe lower lumbar facet joint arthropathy. Infrarenal abdominal aortic aneurysm measuring 3.7 cm AP dimension. IMPRESSION: 1. Degenerative changes as discussed. 2. Abdominal aortic aneurysm. ICD 10 NO FRACTURE, INITIAL EVALUATION
[2019-02-05] MEDS ORDERED: ONDANSETRON ODT 4 MG TAB PO STA (10:19)
--- NOTE | 2019-02-05 10:56 | US ---
EXAMINATION TYPE: US venous doppler duplex LE RT DATE OF EXAM: 02/05/2019 10:44 AM COMPARISON: NONE CLINICAL HISTORY: Pain. SIDE PERFORMED: Right TECHNIQUE: The lower extremity deep venous system is examined utilizing real time linear array sonog aj with graded compression, doppler sonography and color-flow sonography. VESSELS IMAGED: External Iliac Vein (EIV) Common Femoral Vein Deep Femoral Vein Greater Saphenous Vein * Femoral Vein Popliteal Vein Small Saphenous Vein * Proximal Calf Veins (* superficial vessels) Right Leg: Negative for DVT IMPRESSION: No evidence for DVT.
[2019-02-05] MEDS ORDERED: KETOROLAC 30 MG/ML 1 ML VIAL IVP STA (11:22)
[2019-02-05] MEDS ORDERED: MORPHINE SULFATE 4 MG/ML SYRINGE IVP STA ×2 (11:33→13:15)
[2019-02-05] MEDS ORDERED: ONDANSETRON 4 MG/2 ML VIAL IVP STA (11:33)
[2019-02-05 11:56] LABS: Anisocytosis Slight; Basophils # (A) 0.1 k/uL (0-0.2); Basophils % (A) 1 %; Eosinophils # (A) 0.2 k/uL (0-0.7); Eosinophils % (A) 2 %; HCT 39.6 % (39.0-53.0); HGB 12.5 gm/dL (13.0-17.5); Hypochromasia Slight; Lymphocytes # (A) 1.1 k/uL (1.0-4.8); Lymphocytes % (A) 12 %; MCH 26.6 pg (25.0-35.0); MCHC 31.7 g/dL (31.0-37.0); MCV 84.1 fL (80.0-100.0); Mean Platelet Volume 8.4; Monocytes # (A) 0.3 k/uL (0-1.0); Monocytes % (A) 3 %; Neutrophils # (A) 7.8 k/uL (1.3-7.7); Neutrophils % (A) 81 %; Platelet Count 249 k/uL (150-450); Poikilocytosis Slight; RBC 4.71 m/uL (4.30-5.90); RDW 19.5 % (11.5-15.5); WBC 9.5 k/uL (3.8-10.6)
[2019-02-05 12:08] LABS: Albumin 4.4 g/dL (3.5-5.0); C Reactive Protein 40.9 mg/L (<10.0); Calcium 9.4 mg/dL (8.4-10.2); Potassium 4.5 mmol/L (3.5-5.1); Total Bilirubin 0.5 mg/dL (0.2-1.3); Total Protein 8.6 g/dL (6.3-8.2)
--- NOTE | 2019-02-05 13:10 | CT ---
EXAMINATION TYPE: CT hip RT wo con DATE OF EXAM: 02/05/2019 COMPARISON: 02/05/2019 HISTORY: Right leg/hip pain CT DLP: 798.2 mGycm Automated exposure control for dose reduction was used. FINDINGS: Concentric narrowing of the joint space without erosive change. Hypertrophic change of the acetabulum . Degenerative and hypertrophic change involving the lower lumbar spine. Atherosclerotic change of th e vasculature with ectasia of the iliac arteries. Osseous structures intact. IMPRESSION: NO ACUTE FRACTURE.
[2019-02-05] MEDS ORDERED: NALOXONE 0.4 MG/ML 1 ML VIAL IV PRN (13:36)
[2019-02-05] MEDS ORDERED: ONDANSETRON 4 MG/2 ML VIAL IVP PRN (13:36)
[2019-02-05] MEDS ORDERED: HYDROcodone/APAP 7.5-325MG 1 EACH TAB PO PRN (15:37)
[2019-02-05] MEDS ORDERED: ALBUTEROL NEBULIZED 2.5 MG/3 ML INHALATION PRN (15:37)
[2019-02-05 16:57] LABS: Glucose,Whole Blood 264 mg/dL (75-99)
[2019-02-05] MEDS: METOPROLOL TARTRATE 50 MG TAB PO SCH (17:04)
[2019-02-05] MEDS: REPAGLINIDE 1 MG TAB PO SCH ×2 (17:04→20:49)
[2019-02-05] MEDS: PANTOPRAZOLE 40 MG TABLET PO SCH (17:04)
[2019-02-05] MEDS: GABAPENTIN 300 MG CAP PO SCH ×2 (17:04→20:50)
[2019-02-05] MEDS: MORPHINE SULFATE 4 MG/ML SYRINGE IV PRN (18:34)
[2019-02-05] MEDS ORDERED: INSULIN ASPART (NovoLOG) 100 UNIT/ML VIAL SQ ONE (18:34)
[2019-02-05] MEDS: INSULIN ASPART (NovoLOG) 100 UNIT/ML VIAL SQ SCH ×2 (18:37→20:49)
--- NOTE | 2019-02-05 18:38 | P.CNOR ---
History of Present Illness - [facility] Consult date: 02/05/19 Consult reason: joint pain History of present illness: Patient is an 83-year-old male who presented to [facility] today with regards to right hip/leg pain. Patient was admitted to the observation unit for further workup. Patient has noticed the pain over the last 3 days or so. Patient denies any change in activity level or trauma. Patient denies any previous surgery involving the extremity. Over the last 3 days, pain is worsened to the point where he has gone from a cane to a walker. Patient has had a very difficult time ambulating for the last few days. Patient was evaluated at bedside today, he is in the observation unit. Patient's daughter is at bedside. Patient admits the discomfort over the lateral aspect of the right lower extremity. He said the pain is ranged on the lateral side of the leg to about the knee. Patient does have a history of neuropathy from his diabetes, this a ffects the bilateral feet. He notes no pain down the posterior aspect of the leg. He denies any groin pain at this time. He denies any acute low back pain at this time. Review of Systems Constitutional: Reports as per HPI Past Medical History Past Medical History: COPD, Diabetes Mellitus, GERD/Reflux, Hypertension, Myocardial Infarction ([place]), Renal Disease, Sleep Apnea/CPAP/BIPAP, Vascular Disorder Additional Past Medical History / Comment(s): NEUROPATHY FEET, decreased kidney function, uses CPAP Last Myocardial Infarction Date:: 2015 History of Any Multi-Drug Resistant Organisms: None Reported Past Surgical History: Heart Catheterization, Heart Catheterization With Stent, Tonsillectomy Additional Past Surgical History / Comment(s): EGD, COLONOSCOPY, sinus surg. x3 Past Anesthesia/Blood Transfusion Reactions: No Reported Reaction Date of Last Stent Placement:: 2015 Smoking Status: Former smoker - Past Family History Father Family Medical History: Cancer, Myocardial Infarction ([place]) Additional Family Medical History / Comment(s): Father had bone cancer. He at the age of 80yrs. Mother Family Medical History: AFIB, Myocardial Infarction ([place]) Additional Family Medical History / Comment(s): Mother when she 82 years old and of a heart attack Medications and Allergies Home Medications Medication Instructions Recorded Confirmed Type Omeprazole [PriLOSEC] 20 mg PO DAILY 06/11/14 02/05/19 History Simvastatin [Zocor] 40 mg PO HS 06/11/14 02/05/19 History Hydrocodone/Acetaminophen [[place] 1 tab PO DAILY PRN 10/12/15 02/05/19 History 7.5-325] Furosemide [Lasix] 40 mg PO BID 10/16/17 02/05/19 History Gabapentin [Neurontin] 300 mg PO TID 10/16/17 02/05/19 History Metoprolol Tartrate [Lopressor] 50 mg PO DAILY 10/16/17 02/05/19 History Repaglinide 1 mg PO TID 10/16/17 02/05/19 History Aspirin [Adult Low Dose Aspirin EC] 81 mg PO DAILY 06/16/18 02/05/19 History Fexofenadine HCl [Mercedes Allergy] 180 mg PO DAILY 09/27/18 02/05/19 History Albuterol Nebulized [Ventolin 2.5 mg INHALATION RT-QID PRN 11/02/18 02/05/19 History Nebulized] Cholecalciferol [Vitamin D3 (25 1,000 unit PO DAILY 11/02/18 02/05/19 History Mcg = 1000 Iu)] INSULIN LISPRO (HumaLOG) [HumaLOG] 20 units SQ AC-TID 11/03/18 02/05/19 History metFORMIN HCL [Glucophage] 500 mg PO DAILY 02/05/19 02/05/19 History Allergies Allergy/AdvReac Type Severity Reaction Status Date / Time No Known Allergies Allergy Verified 02/05/19 09:30 Physical Examination Right lower extremity: No obvious open lesions or sores present throughout the extremity, no soaking areas of erythema or soft tissue swelling Patient was able to straight leg raise with minimal difficulty Point tenderness with palpation over the greater trochanter and along the iliotibial band Flexion of the hip with internal/external rotation reproduces some discomfort, this is on the lateral aspect of the leg. No groin pain is reproduced Range of motion of the knee is full with flexion and extension no pain. No pain with palpation surrounding the knee Soft, no tenderness with palpation Plantar flexion, dorsiflexion, EHL, FHL are intact Dorsal pedis pulses 2+ Results - Labs Labs: Abnormal Lab Results - Last 24 Hours (Table) 02/05/19 02/05/19 02/05/19 Range/Units 11:37 11:37 16:55 Hgb 12.5 L (13.0-17.5) gm/dL RDW 19.5 H (11.5-15.5) % Neutrophils # 7.8 H (1.3-7.7) k/uL BUN 33 H (9-20) mg/dL Creatinine 1.81 H (0.66-1.25) mg/dL Glucose 280 H (74-99) mg/dL POC Glucose (mg/dL) 264 H (75-99) mg/dL ALT 17 L (21-72) U/L C-Reactive Protein 40.9 H (<10.0) mg/L Total Protein 8.6 H (6.3-8.2) g/dL H & H 02/05/19 Range/Units 11:37 Hgb 12.5 L (13.0-17.5) gm/dL Hct 39.6 (39.0-53.0) % Result Diagrams: 02/05/19 11:37 02/05/19 11:37 - Diagnostic results Hip x-ray: report reviewed, image reviewed Hip CT: report reviewed, image reviewed Lumbar AP/lateral x-ray: report reviewed, image reviewed Assessment and Plan Plan: Imaging: Multiple images were reviewed from the right hip and lumbar spine. Images of the hip demonstrated no acute fractures or dislocations, arthritic changes are noted Assessment: 1. Right leg pain 2. Right hip osteoarthritis 3. Right hip trochanteric bursitis 4. Lumbar degenerative disc disease Plan: I was able to discuss the case, including the physical exam findings imaging s jc might attending Dr. Lassiter. There may be a level of lumbar radiculopathy contributing to pain, but an obvious trochanteric bursitis is present. We'll proceed with a cortisone shot in the right trochanteric bursa on 02/06/2019. We'll plan to do this at bedside Physical therapy evaluation after injection, to aid with ambulation with walker Other nuclear medical tech and recommendations Further recommendations to follow Time with Patient: Less than 30
[2019-02-05 20:23] LABS: Glucose,Whole Blood 223 mg/dL (75-99)
[2019-02-05] MEDS ORDERED: ATORVASTATIN 20 MG TAB PO SCH (21:00)
[2019-02-06] MEDS: MORPHINE SULFATE 4 MG/ML SYRINGE IV PRN ×2 (00:01→09:12)
[2019-02-06 00:12] VITALS: RESP 18
[2019-02-06 06:49] LABS: Glucose,Whole Blood 197 mg/dL (75-99)
[2019-02-06 08:19] VITALS: BP 112/63; PULSE 79; TEMP 97.5
[2019-02-06] MEDS ORDERED: LORATADINE 10 MG TAB PO SCH (09:00)
[2019-02-06] MEDS ORDERED: CHOLECALCIFEROL 1,000 UNIT TAB PO SCH (09:00)
[2019-02-06] MEDS ORDERED: ASPIRIN 81 MG PO SCH (09:00)
[2019-02-06] MEDS: METOPROLOL TARTRATE 50 MG TAB PO SCH (09:11)
[2019-02-06] MEDS: GABAPENTIN 300 MG CAP PO SCH (09:11)
[2019-02-06] MEDS: INSULIN ASPART (NovoLOG) 100 UNIT/ML VIAL SQ SCH ×4 (09:11→12:21)
[2019-02-06] MEDS: PANTOPRAZOLE 40 MG TABLET PO SCH (09:12)
[2019-02-06] MEDS: REPAGLINIDE 1 MG TAB PO SCH (09:13)
--- NOTE | 2019-02-06 10:33 | P.PN ---
Subjective Progress Note Date: 02/06/19 Principal diagnosis: Right hip trochanteric bursitis Patient was examined today at bedside, symptoms are unchanged. Patient is in agreement and would like to continue with cortisone injection of the trochanteric bursa on the right side. See procedure note for further descripti on. Objective - Vital Signs Vital signs: Vital Signs Temp 97.5 F L 02/06/19 08:15 Pulse 79 02/06/19 08:15 Resp 18 02/06/19 08:15 BP 112/63 02/06/19 08:15 Pulse Ox 92 L 02/06/19 08:15 Intake & Output 02/05/19 02/06/19 02/06/19 18:59 06:59 18:59 Intake Total 840 Balance 840 Weight 115.666 kg Intake: Oral 240 Other 600 Other: Voiding Method Urinal # Voids 1 2 - Exam Physical exam is unchanged from initial exam - Labs CBC & Chem 7: 02/05/19 11:37 02/05/19 11:37 Labs: Abnormal Lab Results - Last 24 Hours (Table) 02/05/19 02/05/19 02/05/19 Range/Units 11:37 11:37 16:55 Hgb 12.5 L (13.0-17.5) gm/dL RDW 19.5 H (11.5-15.5) % Neutrophils # 7.8 H (1.3-7.7) k/uL BUN 33 H (9-20) mg/dL Creatinine 1.81 H (0.66-1.25) mg/dL Glucose 280 H (74-99) mg/dL POC Glucose (mg/dL) 264 H (75-99) mg/dL ALT 17 L (21-72) U/L C-Reactive Protein 40.9 H (<10.0) mg/L Total Protein 8.6 H (6.3-8.2) g/dL 02/05/19 02/06/19 Range/Units 20:21 06:48 Hgb (13.0-17.5) gm/dL RDW (11.5-15.5) % Neutrophils # (1.3-7.7) k/uL BUN (9-20) mg/dL Creatinine (0.66-1.25) mg/dL Glucose (74-99) mg/dL POC Glucose (mg/dL) 223 H 197 H (75-99) mg/dL ALT (21-72) U/L C-Reactive Protein (<10.0) mg/L Total Protein (6.3-8.2) g/dL Assessment and Plan Plan: Assessment: 1. Right leg pain 2. Right hip osteoarthritis 3. Right hip trochanteric bursitis 4. Lumbar degenerative disc disease Plan: Did proceed with a steroid injection involving the right trochanteric bursa at bedside today, see procedure note for further detail. Consult was placed physical therapy evaluation, this to include gait training and home exercise program Other medical facilities section director and recommendations Symptomatically improving after injection, and an orthopedic standpoint after physical therapy evaluation patient stable for discharge to home. Time with Patient: Less than 30
--- NOTE | 2019-02-06 10:36 | P.PCN ---
Date of Procedure: 02/06/19 Preoperative Diagnosis: Right hip trochanteric bursitis Postoperative Diagnosis: Same Procedure(s) Performed: Cortisone injection right hip greater trochanteric bursa Implants: none Anesthesia: local Surgeon: Adán Domínguez Estimated Blood Loss (ml): 0 Pathology: none sent Condition: stable Disposition: no change Indications for Procedure: Symptomatic right hip trochanteric bursitis Description of Procedure: Patient was lying on his left side with the right hip exposed. The skin was prepped with 1 ChloraPrep swab and one alcohol swabs. I utilized a long 25- gauge needle to inject 1 mL of 1% plain lidocaine and 2 mL of 40 mg Depo-Medrol in the greater trochanteric region on the right side. A bandage is placed after. Patient tolerated procedure well. Patient's symptoms have improved since the injection.
[2019-02-06 11:35] LABS: Glucose,Whole Blood 175 mg/dL (75-99)
--- NOTE | 2019-02-06 17:31 | P.HPIM ---
History of Present Illness H&P Date: 02/06/19 History and Physical and Discharge Summary This is an 83-year-old gentleman with history of CAD, prior to stenting, diabetes, hypertension, falls, presented to the ER with complaints of right leg, right hip pain progressively worsening over the last 3 days. Reports worsening with any movement, requiring him now to use a walker instead of a cane that he had previously used. Currently denies back pain. Denies trauma. Denies fever or chills. Denies syncope. Denies lightheadedness dizziness or focal deficits. Denies numbness or tingling. Denies nausea vomiting or abdominal pain. Denies chest pain, palpitations or shortness of breath. Hip/pelvis x-ray reported no acute fracture or dislocation. Lumbar spine reported grade 1 retrolisthesis L3 on L4, moderate degenerative disc space narrowing throughout, severe lower lumbar facet joint arthropathy, infrarenal abdominal aortic aneurysm measuring 3.7 cm. Right leg Doppler ultrasound reported negative for DVT. Head CT reported no acute fracture. Review of Systems ROS Statement: Those systems with pertinent positive or pertinent negative responses have been documented in the HPI. ROS Other: All systems not noted in ROS Statement are negative. Past Medical History Past Medical History: COPD, Diabetes Mellitus, GERD/Reflux, Hypertension, Myocardial Infarction ([place]), Renal Disease, Sleep Apnea/CPAP/BIPAP, Vascular Disorder Additional Past Medical History / Comment(s): NEUROPATHY FEET, decreased kidney function, uses CPAP Last Myocardial Infarction Date:: 2015 History of Any Multi-Drug Resistant Organisms: None Reported Past Surgical History: Heart Catheterization, Heart Catheterization With Stent, Tonsillectomy Additional Past Surgical History / Comment(s): EGD, COLONOSCOPY, sinus surg. x3 Past Anesthesia/Blood Transfusion Reactions: No Reported Reaction Date of Last Stent Placement:: 2015 Smoking Status: Former smoker - Past Family History Father Family Medical History: Cancer, Myocardial Infarction ([place]) Additional Family Medical History / Comment(s): Father had bone cancer. He at the age of 80yrs. Mother Family Medical History: AFIB, Myocardial Infarction ([place]) Additional Family Medical History / Comment(s): Mother when she 82 years old and of a heart attack Medications and Allergies Home Medications Medication Instructions Recorded Confirmed Type Omeprazole [PriLOSEC] 20 mg PO DAILY 06/11/14 02/05/19 History Simvastatin [Zocor] 40 mg PO HS 06/11/14 02/05/19 History Hydrocodone/Acetaminophen [Labolt 1 tab PO DAILY PRN 10/12/15 02/05/19 History 7.5-325] Gabapentin [Neurontin] 300 mg PO TID 10/16/17 02/05/19 History Metoprolol Tartrate [Lopressor] 50 mg PO DAILY 10/16/17 02/05/19 History Repaglinide 1 mg PO TID 10/16/17 02/05/19 History Aspirin [Adult Low Dose Aspirin EC] 81 mg PO DAILY 06/16/18 02/05/19 History Fexofenadine HCl [Mercedes Allergy] 180 mg PO DAILY 09/27/18 02/05/19 History Albuterol Nebulized [Ventolin 2.5 mg INHALATION RT-QID PRN 11/02/18 02/05/19 History Nebulized] Cholecalciferol [Vitamin D3 (25 1,000 unit PO DAILY 11/02/18 02/05/19 History Mcg = 1000 Iu)] INSULIN LISPRO (HumaLOG) [humaLOG] 20 units SQ AC-TID 11/03/18 02/05/19 History Furosemide [Lasix] 40 mg PO DAILY #0 02/06/19 02/05/19 Rx Allergies Allergy/AdvReac Type Severity Reaction Status Date / Time No Known Allergies Allergy Verified 02/05/19 09:30 Physical Exam Vitals: Vital Signs Temp Pulse Resp BP Pulse Ox 02/06/19 12:00 79 18 02/06/19 08:15 97.5 F L 79 18 112/63 92 L 02/06/19 08:00 79 18 02/06/19 04:00 18 02/06/19 00:00 98.2 F 76 18 137/65 91 L 02/05/19 20:00 19 Intake and Output 02/06/19 02/06/19 02/06/19 06:59 14:59 22:59 Intake Total 1080 Balance 1080 Intake: Oral 480 Other 600 Other: Voiding Method Urinal # Voids 2 VITAL SIGNS: As above GENERAL: Sitting up in chair, no acute distress HEENT: Conjunctivae normal. eyes normal. Oral mucosa moist NECK: No JVD. No thyroid enlargement. No LNs CARDIOVASCULAR: S1, S2 regular, systolic murmur RESPIRATION: Breath sounds diminished in the bases. No rhonchi or crackles. No bronchial breathing. ABDOMEN: Soft, nontender . No guarding. no masses palpable. Bowel sounds heard. LEGS: No edema. no swelling Skin: No lesions/sores of the affected extremity, no edema, no erythema. Tender soft right hip to palpation, positive pulses PSYCHIATRY: Alert and oriented -3, mood and affect normal. NERVOUS SYSTEM: Cranial N 2-12 grossly normal. Moves all 4 limbs. Diffuse we akness No focal deficits. No sensory deficit. Lymphatic system. No LN neck axilla or groin. Results CBC & Chem 7: 02/05/19 11:37 02/05/19 11:37 Labs: Abnormal Lab Results - Last 24 Hours (Table) 02/05/19 02/05/19 02/06/19 Range/Units 16:55 20:21 06:48 POC Glucose (mg/dL) 264 H 223 H 197 H (75-99) mg/dL 02/06/19 Range/Units 11:33 POC Glucose (mg/dL) 175 H (75-99) mg/dL Thrombosis Risk Factor Assmnt - Choose All That Apply Other Risk Factors: Yes Each Risk Factor Represents 3 Points: Age 75 years or older Thrombosis Risk Factor Assessment Total Risk Factor Score: 3 Thrombosis Risk Factor Assessment Level: Moderate Risk Assessment and Plan Assessment: -Right leg pain -Right hip osteoarthritis, trochanteric bursitis -Lumbar degenerative disc disease -Possible lumbar radiculopathy -Gait dysfunction -Acute on chronic renal failure, stage III. Baseline 1.3 -Degenerative disc disease, specifics as mentioned above. -infrarenal abdominal aortic aneurysm measuring 3.7 cm -CAD with history of stenting -Diabetes mellitus -Hypertension -Dyslipidemia -No code, no CPR, no intubation Plan: Continue on current medication regime ,monitoring and symptomatic treatment. Evaluated by the orthopedic surgery. Receiving right hip cortisone injection with further follow-up in orthopedics office. Evaluated by physical therapy after injection for education regarding walker use, home recommended at discharge. Significant clinical improvement. Cleared for discharge by orthopedics. Hold Metformin, Lasix dose decreased(EF 55-60% from 11/12 Echo), GFR 34, re-eval OP, Creatinine elevated at 1.8, Baseline 1.3-reevaluate at follow- up visit with PCP outpatient. Patient is being discharged home in a stable cond ition with guarded prognosis. Discharge Medication List Omeprazole [PriLOSEC] 20 mg PO DAILY 06/11/14 [History] Simvastatin [Zocor] 40 mg PO HS 06/11/14 [History] Hydrocodone/Acetaminophen [Labolt 7.5-325] 1 tab PO DAILY PRN 10/12/15 [History] Gabapentin [Neurontin] 300 mg PO TID 10/16/17 [History] Metoprolol Tartrate [Lopressor] 50 mg PO DAILY 10/16/17 [History] Repaglinide 1 mg PO TID 10/16/17 [History] Aspirin [Adult Low Dose Aspirin EC] 81 mg PO DAILY 06/16/18 [History] Fexofenadine HCl [Mercedes Allergy] 180 mg PO DAILY 09/27/18 [History] Albuterol Nebulized [Ventolin Nebulized] 2.5 mg INHALATION RT-QID PRN 11/02/18 [History] Cholecalciferol [Vitamin D3 (25 Mcg = 1000 Iu)] 1,000 unit PO DAILY 11/02/18 [History] INSULIN LISPRO (HumaLOG) [humaLOG] 20 units SQ AC-TID 11/03/18 [History] Furosemide [Lasix] 40 mg PO DAILY #0 02/06/19 [Rx] The impression and plan of care has been dictated as directed. : I performed a history and examination of this patient, discussed the same with the dictator. I agree with the dictator's note ,documented as a scribe. Any additional findings or plans will be noted. Time taken: 35 minutes
== END 2019-02-06 15:20 | disposition home or self-care (01) ==
LOC: EC 08:51 → 1SOBS 13:44
PROVIDERS: ADMIT Family Medicine; ATTEND Family Medicine
DX: M70.61 Trochanteric bursitis, right hip (principal); M16.11 Unilateral primary osteoarthritis, right hip; N17.9 Acute kidney failure, unspecified; I12.9 Hypertensive chronic kidney disease with stage 1 through stage 4 chronic kidney disease, or unspecified chronic kidney disease; N18.3 Chronic kidney disease, stage 3 (moderate); E11.22 Type 2 diabetes mellitus with diabetic chronic kidney disease; R26.2 Difficulty in walking, not elsewhere classified; E11.42 Type 2 diabetes mellitus with diabetic polyneuropathy; M51.36 Other intervertebral disc degeneration, lumbar region; I71.4 Abdominal aortic aneurysm, without rupture; I25.10 Atherosclerotic heart disease of native coronary artery without angina pectoris; E78.5 Hyperlipidemia, unspecified; K21.9 Gastro-esophageal reflux disease without esophagitis; J44.9 Chronic obstructive pulmonary disease, unspecified; G47.30 Sleep apnea, unspecified; M47.896 Other spondylosis, lumbar region; M43.16 Spondylolisthesis, lumbar region; Z66 Do not resuscitate; Z79.4 Long term (current) use of insulin; Z79.82 Long term (current) use of aspirin; Z79.891 Long term (current) use of opiate analgesic; Z79.899 Other long term (current) drug therapy; Z87.891 Personal history of nicotine dependence; Z99.89 Dependence on other enabling machines and devices; Z95.5 Presence of coronary angioplasty implant and graft; I25.2 Old myocardial infarction; Z82.49 Family history of ischemic heart disease and other diseases of the circulatory system; Z80.8 Family history of malignant neoplasm of other organs or systems
CPT/HCPCS: 20610; 96376 ×3; 96372; 96374; 96375; 99285; 36415; 97161; 80053; 83605; 85025; 86140; 72110; 73502; 93971; 73700; G0378 ×2; J2270 ×2; J2405; J1170

== ENCOUNTER 2019-02-07 09:31 | Day surgery (SDC) | payer MEDICARE, OTHER ==
[2019-02-01 15:06] VITALS: BMI 36.6
[~2019-02-07 09:31] MED LIST changes: +ALBUTEROL NEB (CONC) 2.5 MG/0.5 ML INHALATION ONE; -ALPRAZolam 0.25 MG TAB PO PRN; -ASPIRIN 325 MG TAB PO STA; +LACTATED RINGERS 1,000 ML IV SCH; +LIDOCAINE 2% (PF) 20 MG/ML 5 ML VIAL INHALATION ONE; +LIDOCAINE VISCOUS 300 MG/15 ML CUP MUCOUS MEM ONE; -NITROGLYCERIN SL TABS 0.4 MG TAB SUBLINGUAL PRN; +ONDANSETRON 4 MG/2 ML VIAL IVP ONE; +SODIUM CHLORIDE 0.9% 1,000 ML IV SCH; -SODIUM CHLORIDE 0.9% 1,000 ML in EMPTY BAG 1 BAG IV ONE
[2019-02-07] MEDS ORDERED: INSULIN ASPART (NovoLOG) 100 UNIT/ML VIAL SQ ONE (10:15)
[2019-02-07] MEDS ORDERED: fentaNYL (PF) 50 MCG/ML 2 ML AMP IV ONE (10:15)
[2019-02-07 10:45] LABS: Glucose,Whole Blood 281 mg/dL (75-99)
[2019-02-07] MEDS ORDERED: NEOSTIGMINE 1 MG/ML 10 ML VIAL ONE (12:15)
[2019-02-07] MEDS ORDERED: GLYCOPYRROLATE 0.2 MG/ML 2 ML VIAL ONE (12:15)
[2019-02-07] MEDS ORDERED: PROPOFOL 10 MG/ML 20 ML VIAL IV ONE (12:15)
[2019-02-07] MEDS ORDERED: MIDAZOLAM 2 MG/2 ML VIAL ONE (12:15)
[2019-02-07] MEDS ORDERED: ROCURONIUM BROMIDE 10 MG/ML 10 ML VIAL IV ONE (12:15)
[2019-02-07] MEDS ORDERED: SUCCINYLCHOLINE CHLORIDE 100 MG/5 ML SYR IV ONE (12:15)
[2019-02-07] MEDS ORDERED: fentaNYL (PF) 50 MCG/ML 2 ML AMP ONE (12:15)
[2019-02-07] MEDS ORDERED: LIDOCAINE 1% INJ 10MG/ML (20 ML MDV) ONE (12:15)
--- NOTE | 2019-02-07 12:24 | CT ---
EXAMINATION TYPE: CT Chest heena Gaspar Protocol DATE OF EXAM: 02/07/2019 COMPARISON: 12/30/2018 HISTORY: Pulmonary Nodules Mass CT DLP: 786 mGycm Automated exposure control for dose reduction was used. FINDINGS: Respiratory motion artifact degradation noted. Background moderate emphysematous change redemonstrate d. Persistent spiculated right hilar hypermetabolic mass measuring approximately 5.2 x 3.5 cm . There are prominent but subcentimeter thoracic lymph nodes including paratracheal region and subcarin al level which are stable. Degree of interstitial lung disease suspected. 5 mm nodule right lower lobe. There is a three vessel coronary disease. Correlate for COPD. Hypertrophic and degenerative change o f the spine. Atherosclerotic change of aorta. IMPRESSION: RIGHT HILAR SOFT TISSUE MASS
--- NOTE | 2019-02-07 12:48 | P.PCN ---
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 Initial planning was to go this procedure on the navigational guidance. The patient was brought in earlier and underwent a CAT scan of the chest using the Veran protocol. The appropriate mapping was done on all of the information was loaded into the navigational system. The patient was brought in to the operating room where the patient was interviewed and following that intubated and placed on a mechanical ventilator. A flexible bronchoscope was inserted easily through the orotracheal tube and was advanced into the lower trachea. The tip of the orotracheal tube was seen around 2 cm above the radha. A quick airway inspection was done. Examination of the left side was left mainstem bronchus, left upper lobe and left lower lobe bronchus along with a various segments and subsegments. All of these airways were patent and within normal limits. The left upper lobe bronchus, lingular segment, left lower lobe bronchus lungs various segments are all patent and within normal limits. The bronchoscope was then moved to the right side. Right mainstem was patent. Right upper lobe bronchus was patent along with various segments including the apical anterior and the posterior segment. Bronchoscope was then moved to the bronchus intermedius. Right lower lobe bronchus was patent along with various segments including the superior, lateral anterior posterior and superior. The bronchoscope was then moved to the right middle lobe. 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 Endobronchial biopsies were obtained. The bronchoscope was used to mechanically dislodged the endobronchial tumor and large fragments were removed. There was some bleeding encountered and the total amount of bleeding was less than 5 mL this was controlled locally. I also performed a bronchial lavage of the right lower lobe but a total of 40. A little confused and 20 mL of bloody aspirate was obtained. At the completion of the procedure, the lateral segment of the right middle lobe was completely plugged with endobronchial tumor. The medial segment was patent. Bronchoscope was removed and the patient was let the PROGRAM DIRECTOR/MUSIC DIRECTOR for extubation. The samples will be sent for pathologic evaluation. High likelihood for malignancy.
[2019-02-07 13:02] VITALS: TEMP 97
[2019-02-07 13:33] VITALS: RESP 16
[2019-02-07 13:44] LABS: Glucose,Whole Blood 272 mg/dL (75-99)
[2019-02-07 13:56] VITALS: BP 140/58; PULSE 79
== END 2019-02-07 14:10 | disposition home or self-care (01) ==
LOC: ORWHC2ENDO 09:31
PROVIDERS: ATTEND Internal Medicine Critical Care Medicine
DX: R91.8 Other nonspecific abnormal finding of lung field (principal); I25.10 Atherosclerotic heart disease of native coronary artery without angina pectoris; I10 Essential (primary) hypertension; E78.5 Hyperlipidemia, unspecified; G47.33 Obstructive sleep apnea (adult) (pediatric); Z99.89 Dependence on other enabling machines and devices; Z99.81 Dependence on supplemental oxygen; Z95.5 Presence of coronary angioplasty implant and graft; Z79.02 Long term (current) use of antithrombotics/antiplatelets; Z79.82 Long term (current) use of aspirin; Z79.899 Other long term (current) drug therapy; Z79.890 Hormone replacement therapy; Z79.4 Long term (current) use of insulin
CPT/HCPCS: 88108; 88305; 88342; 87070; 87205; 87077; 87186; 88360; 88381; 71250; 31625; 31624; 31627; J2250; J2710; J2405; J2001; J3010; J0330; J2704

== ENCOUNTER 2019-02-09 12:33 | Emergency (ER) | payer MEDICARE, OTHER ==
[2019-02-09 12:43] VITALS: RESP 18; TEMP 97.6
[2019-02-09] MEDS ORDERED: MORPHINE SULFATE 4 MG/ML SYRINGE IM STA ×2 (13:14→14:18)
[2019-02-09 13:33] VITALS: BP 118/75; PULSE 94
[2019-02-09] MEDS ORDERED: ONDANSETRON 4 MG/2 ML VIAL IM STA (13:33)
--- NOTE | 2019-02-09 13:34 | ED ---
General Adult HPI - General Chief complaint: Extremity Injury, Lower Stated complaint: Rt hip pain Time Seen by Provider: 02/09/19 12:46 Source: patient, family, RN notes reviewed, old records reviewed Mode of arrival: ambulatory Limitations: no limitations - History of Present Illness Initial comments: 83-year-old male patient presents ED chief complaint of chronic right hip pain. Patient was admitted from 02/05 until 02/07. The same complaint. Patient reports that pain in extremities seems the same as before. Denies any recent falls or trauma. At the time investigations including a ultrasound Doppler, hip CT neither of which displayed any acute process patient was administered a cortisone injection by Dr. Lassiter. Patient said he is presenting today for symptom control. Denies any other complaints. Denies any chest pain shortness breath abdominal pain nausea vomiting diarrhea. Systemic: Pt denies fatigue, fever/chills, rash. Pt denies weakness, night sweats, weight loss. Neuro: Pt denies headache, visual disturbances, syncope or pre-syncope. HEENT: Pt denies ocular discharge or irritation, otalgia, rhinorrhea, pharyngitis or notable lymphadenopathy. Cardiopulmonary: Pt denies chest pain, SOB, heart palpitations, dyspnea on exertion. Abdominal/GI: Pt denies abdominal pain, n/v/d. : Pt denies dysuria, burning w/ urination, frequency/urgency. Denies new onset urinary or bowel incontinence. MSK: Pt denies myalgia, loss of strength or function in extremities. Neuro: Pt denies new onset weakness, paresthesias. - Related Data Home Medications Medication Instructions Recorded Confirmed Omeprazole [PriLOSEC] 20 mg PO DAILY 06/11/14 02/05/19 Simvastatin [Zocor] 40 mg PO HS 06/11/14 02/05/19 Hydrocodone/Acetaminophen [[place] 1 tab PO DAILY PRN 10/12/15 02/05/19 7.5-325] Gabapentin [Neurontin] 300 mg PO TID 10/16/17 02/05/19 Metoprolol Tartrate [Lopressor] 50 mg PO DAILY 10/16/17 02/05/19 Repaglinide 1 mg PO TID 10/16/17 02/05/19 Aspirin [Adult Low Dose Aspirin EC] 81 mg PO DAILY 06/16/18 02/05/19 Fexofenadine HCl [Mercedes Allergy] 180 mg PO DAILY 09/27/18 02/05/19 Albuterol Nebulized [Ventolin 2.5 mg INHALATION RT-QID PRN 11/02/18 02/05/19 Nebulized] Cholecalciferol [Vitamin D3 (25 1,000 unit PO DAILY 11/02/18 02/05/19 Mcg = 1000 Iu)] INSULIN LISPRO (HumaLOG) [humaLOG] 20 units SQ AC-TID 11/03/18 02/05/19 Previous Rx's Medication Instructions Recorded Furosemide [Lasix] 40 mg PO DAILY #0 02/06/19 Allergies Allergy/AdvReac Type Severity Reaction Status Date / Time No Known Allergies Allergy Verified 02/09/19 12:41 Review of Systems ROS Statement: Those systems with pertinent positive or pertinent negative responses have been documented in the HPI. ROS Other: All systems not noted in ROS Statement are negative. Past Medical History Past Medical History: COPD, Diabetes Mellitus, GERD/Reflux, Hypertension, Myocardial Infarction ([place]), Renal Disease, Sleep Apnea/CPAP/BIPAP, Vascular Disorder Additional Past Medical History / Comment(s): NEUROPATHY FEET, decreased kidney function, uses CPAP Last Myocardial Infarction Date:: 2015 History of Any Multi-Drug Resistant Organisms: None Reported Past Surgical History: Heart Catheterization, Heart Catheterization With Stent, Tonsillectomy Additional Past Surgical History / Comment(s): EGD, COLONOSCOPY, sinus surg. x3 Past Anesthesia/Blood Transfusion Reactions: No Reported Reaction Date of Last Stent Placement:: 2015 Past Psychological History: No Psychological Hx Reported Smoking Status: Former smoker Past Alcohol Use History: None Reported Past Drug Use History: None Reported - Past Family History Father Family Medical History: Cancer, Myocardial Infarction ([place]) Additional Family Medical History / Comment(s): Father had bone cancer. He at the age of 80yrs. Mother Family Medical History: AFIB, Myocardial Infarction ([place]) Additional Family Medical History / Comment(s): Mother when she 82 years old and of a heart attack General Exam - General Exam Comments Initial Comments: Constitutional: NAD, AOX3, Pt has pleasant affect. HEENT: NC/AT, trachea midline, neck supple, no lymphadenopathy. Posterior pharynx non erythematous, without exudates. External ears appear normal, without discharge. Mucous membranes moist. Eyes PERRLA, EOM intact. There is no scleral icterus. No pallor noted. Cardiopulmonary: RRR, no murmurs, rubs or gallops, no JVD noted. Lungs CTAB in anterior and posterior alvarado. No peripheral edema. Abdominal exam: Abdomen soft and non-distended. Abdomen non-tender to palpation in all 4 quadrants. Bowel sounds active in LLQ. No hepatosplenomegaly. No ec chymosis Neuro: CN II-XII grossly intact. No nuchal rigidity. No raccon eyes, no pereira sign, no hemotympanum. No cervical spinal tenderness. MSK: No skin changes, erythema, distal pulses intact and equal. No posterior calf tenderness bilaterally, homans sign negative bilaterally. Posterior tibialis and radial pulse +2 bilaterally. Sensation intact in upper and lower extremities. Full active ROM in upper and lower extremities, 5/5 stregnth. Limitations: no limitations Course Vital Signs 02/09/19 02/09/19 12:40 13:32 Temperature 97.6 F Pulse Rate 93 94 Respiratory 18 18 Rate Blood Pressure 152/79 118/75 O2 Sat by Pulse 91 L 96 Oximetry Medical Decision Making - Medical Decision Making 83-year-old male patient presented to ED with chief complaint of exacerbation of chronic right hip pain. Patient did have a recent hospitalization for this and is discharged with. Follow-up. Patient vital signs stable, afebrile. Physical exam did not display acute pathology. No erythema, no skin changes, range of motion intact but discussed patient pain. Patient is ambulatory. Patient pain control in ED, will be discharged with outpatient follow-up. Precautions discussed. Case discussed with Dr. Smith. Disposition Clinical Impression: Hip pain Disposition: HOME SELF-CARE Condition: Stable Instructions (If sedation given, give patient instructions): Hip Pain (ED) Is patient prescribed a controlled substance at d/c from ED?: No Referrals: Miguel Parra MD [Primary Care Provider] - 1-2 days Isaac Lassiter MD [STAFF PHYSICIAN] - 1-2 days Surya Swartz DO [Doctor of Osteopathic Medicine] - 1-2 days
[2019-02-09] MEDS ORDERED: ACET/COD 300 MG/30 MG STARTER PACK 6 TAB BTL PO STA (14:18)
== END 2019-02-09 15:11 | disposition home or self-care (01) ==
LOC: EC 12:33
DX: M25.551 Pain in right hip (principal); G89.29 Other chronic pain; J44.9 Chronic obstructive pulmonary disease, unspecified; E11.42 Type 2 diabetes mellitus with diabetic polyneuropathy; K21.9 Gastro-esophageal reflux disease without esophagitis; I10 Essential (primary) hypertension; I25.2 Old myocardial infarction; G47.30 Sleep apnea, unspecified; Z87.891 Personal history of nicotine dependence; Z79.4 Long term (current) use of insulin; Z79.82 Long term (current) use of aspirin; Z79.899 Other long term (current) drug therapy; Z95.5 Presence of coronary angioplasty implant and graft; Z99.89 Dependence on other enabling machines and devices; Z80.8 Family history of malignant neoplasm of other organs or systems
CPT/HCPCS: 99284; 96372 ×3; J2270; J2405

== ENCOUNTER → 2019-02-22 | Outpatient (CLI) | payer MEDICARE, OTHER | LOC: CPPFTMAIN 08:23 | PROVIDERS: ATTEND Internal Medicine | DX: J44.9 Chronic obstructive pulmonary disease, unspecified (principal); J98.4 Other disorders of lung | CPT/HCPCS: 94060; 94726; 94729 ==

== ENCOUNTER → 2019-03-16 | Outpatient (CLI) | payer MEDICARE ==
[2019-03-16 10:06] LABS: Anisocytosis Slight; Basophils # (A) 0.1 k/uL (0-0.2); Basophils % (A) 1 %; Eosinophils # (A) 0.3 k/uL (0-0.7); Eosinophils % (A) 4 %; HCT 40.7 % (39.0-53.0); HGB 12.5 gm/dL (13.0-17.5); Hypochromasia Slight; Lymphocytes # (A) 1.4 k/uL (1.0-4.8); Lymphocytes % (A) 19 %; MCH 26.4 pg (25.0-35.0); MCHC 30.8 g/dL (31.0-37.0); MCV 85.7 fL (80.0-100.0); Mean Platelet Volume 7.6; Monocytes # (A) 0.3 k/uL (0-1.0); Monocytes % (A) 4 %; Neutrophils # (A) 5.1 k/uL (1.3-7.7); Neutrophils % (A) 71 %; Platelet Count 164 k/uL (150-450); RBC 4.75 m/uL (4.30-5.90); RDW 17.4 % (11.5-15.5); WBC 7.3 k/uL (3.8-10.6)
[2019-03-16 10:15] LABS: Potassium 4.9 mmol/L (3.5-5.1)
== END | disposition home or self-care (01) ==
LOC: LABPAT 08:37
PROVIDERS: ATTEND Thoracic Surgery (Cardiothoracic Vascular Surgery)
DX: Z01.812 Encounter for preprocedural laboratory examination (principal); C34.2 Malignant neoplasm of middle lobe, bronchus or lung
CPT/HCPCS: 80051; 82565; 82947; 84520; 85025

== ENCOUNTER 2019-03-22 07:25 | Day surgery (SDC) | payer MEDICARE, OTHER ==
[2019-03-19 12:20] VITALS: BMI 34.9
[~2019-03-22 07:25] MED LIST changes: -ALBUTEROL NEB (CONC) 2.5 MG/0.5 ML INHALATION ONE; +DEXAMETHASONE SOD PHOSPHATE 10 MG/ML 1 ML VIAL IV ONE; +LIDOCAINE 1% 20 ML VIAL (10MG/ML) FOR IV START INTRADERMA PRN; -LIDOCAINE 2% (PF) 20 MG/ML 5 ML VIAL INHALATION ONE; -LIDOCAINE VISCOUS 300 MG/15 ML CUP MUCOUS MEM ONE; +MIDAZOLAM 2 MG/2 ML VIAL IV PRN; -SODIUM CHLORIDE 0.9% 1,000 ML IV SCH; +fentaNYL (PF) 50 MCG/ML 2 ML AMP IV PRN
[2019-03-22 08:01] LABS: Glucose,Whole Blood 138 mg/dL (75-99)
[2019-03-22] MEDS ORDERED: fentaNYL (PF) 50 MCG/ML 2 ML AMP ONE (09:33)
[2019-03-22] MEDS ORDERED: ROCURONIUM BROMIDE 10 MG/ML 10 ML VIAL IV ONE (09:33)
[2019-03-22] MEDS ORDERED: NEOSTIGMINE 1 MG/ML 10 ML VIAL ONE (09:33)
[2019-03-22] MEDS ORDERED: MIDAZOLAM 2 MG/2 ML VIAL ONE (09:33)
[2019-03-22] MEDS ORDERED: LABETALOL 5 MG/ML VIAL MDV ONE (09:33)
[2019-03-22] MEDS ORDERED: GLYCOPYRROLATE 0.2 MG/ML 2 ML VIAL ONE (09:33)
[2019-03-22] MEDS ORDERED: PHENYLEPHRINE-0.9% NACL SYG 1 MG/10 ML SYRINGE ONE (09:33)
[2019-03-22] MEDS ORDERED: LIDOCAINE 1% INJ 10MG/ML (20 ML MDV) ONE (09:33)
[2019-03-22] MEDS ORDERED: PROPOFOL 10 MG/ML 20 ML VIAL IV ONE (09:33)
[2019-03-22] MEDS ORDERED: LACTATED RINGERS 1,000 ML IV ONE ×2 (10:34)
[2019-03-22 11:16] VITALS: TEMP 97.1
[2019-03-22 11:32] LABS: Glucose,Whole Blood 201 mg/dL (75-99)
--- NOTE | 2019-03-22 12:39 | XR ---
EXAMINATION TYPE: XR chest 1V portable DATE OF EXAM: 03/22/2019 COMPARISON: Chest CT 02/07/2019 HISTORY: Status post mediastinoscopy TECHNIQUE: Single frontal view of the chest is obtained. FINDINGS: Right hilar prominence, increased density in the right mid lung again noted. There is no e vident pneumothorax or pleural effusion. Patient is rotated. Heart is within normal limits. IMPRESSION: No evident complication status post procedure.
[2019-03-22 13:01] VITALS: BP 106/61; PULSE 61; RESP 16
== END 2019-03-22 13:18 | disposition home or self-care (01) ==
LOC: OR 07:25
PROVIDERS: ATTEND Thoracic Surgery (Cardiothoracic Vascular Surgery)
DX: C34.2 Malignant neoplasm of middle lobe, bronchus or lung (principal); R59.0 Localized enlarged lymph nodes; E13.51 Other specified diabetes mellitus with diabetic peripheral angiopathy without gangrene; I70.213 Atherosclerosis of native arteries of extremities with intermittent claudication, bilateral legs; I25.10 Atherosclerotic heart disease of native coronary artery without angina pectoris; E78.5 Hyperlipidemia, unspecified; I13.0 Hypertensive heart and chronic kidney disease with heart failure and stage 1 through stage 4 chronic kidney disease, or unspecified chronic kidney disease; E13.22 Other specified diabetes mellitus with diabetic chronic kidney disease; N18.9 Chronic kidney disease, unspecified; E13.42 Other specified diabetes mellitus with diabetic polyneuropathy; A49.02 Methicillin resistant Staphylococcus aureus infection, unspecified site; M19.90 Unspecified osteoarthritis, unspecified site; I70.0 Atherosclerosis of aorta; G47.33 Obstructive sleep apnea (adult) (pediatric); J44.9 Chronic obstructive pulmonary disease, unspecified; J45.20 Mild intermittent asthma, uncomplicated; E66.9 Obesity, unspecified; Z68.35 Body mass index [BMI] 35.0-35.9, adult; I50.32 Chronic diastolic (congestive) heart failure; I49.9 Cardiac arrhythmia, unspecified; I08.1 Rheumatic disorders of both mitral and tricuspid valves; I71.4 Abdominal aortic aneurysm, without rupture; I45.81 Long QT syndrome; I25.2 Old myocardial infarction; Z87.891 Personal history of nicotine dependence; Z99.89 Dependence on other enabling machines and devices; Z95.5 Presence of coronary angioplasty implant and graft; Z79.82 Long term (current) use of aspirin; Z79.899 Other long term (current) drug therapy; Z79.4 Long term (current) use of insulin; Z87.74 Personal history of (corrected) congenital malformations of heart and circulatory system; Z79.891 Long term (current) use of opiate analgesic; Z97.2 Presence of dental prosthetic device (complete) (partial); Z82.49 Family history of ischemic heart disease and other diseases of the circulatory system
CPT/HCPCS: 39402; 88305; 88312; 71045; J2250; J1100; J2710; J2405; J2001; J3010; J2370; J2704

== ENCOUNTER 2019-03-27 13:56 | Inpatient (IN) | payer MEDICARE, OTHER ==
[2019-03-27] MEDS ORDERED: MORPHINE SULFATE 4 MG/ML SYRINGE IM STA (14:25)
--- NOTE | 2019-03-27 15:13 | ED ---
General Adult HPI - General Chief complaint: ENT Stated complaint: nose bleed Time Seen by Provider: 03/27/19 14:07 Source: patient, RN notes reviewed, old records reviewed Mode of arrival: wheelchair Limitations: physical limitation - History of Present Illness Initial comments: 83-year-old male patient passed medical history significant for chronic right hip pain. Presents to ED with exacerbation of chronic right hip pain which has been ongoing for approximately 3 weeks.. Patient denies any recent falls or trauma. Patient reports that he follows up with Dr. Rain for his right hip pain and did have a steroid injection approximately 2 months ago. Patient also complains of left anterior epistaxis which began approximately half an hour prior to presentation. Denies any blood thinners. Denies any other complaints at this time. Systemic: Pt denies fatigue, fever/chills, rash. Pt denies weakness, night sweats, weight loss. Neuro: Pt denies headache, visual disturbances, syncope or pre-syncope. HEENT: Pt denies ocular discharge or irritation, otalgia, rhinorrhea, pharyngitis or notable lymphadenopathy. Cardiopulmonary: Pt denies chest pain, SOB, heart palpitations, dyspnea on exertion. Abdominal/GI: Pt denies abdominal pain, n/v/d. : Pt denies dysuria, burning w/ urination, frequency/urgency. Denies new onset urinary or bowel incontinence. MSK: Pt denies myalgia, loss of strength or function in extremities. Neuro: Pt denies new onset weakness, paresthesias. - Related Data Home Medications Medication Instructions Recorded Confirmed Omeprazole [PriLOSEC] 20 mg PO DAILY 06/11/14 03/27/19 Simvastatin [Zocor] 40 mg PO HS 06/11/14 03/27/19 Gabapentin [Neurontin] 300 mg PO TID 10/16/17 03/27/19 Metoprolol Tartrate [Lopressor] 50 mg PO DAILY 10/16/17 03/27/19 Aspirin [Adult Low Dose Aspirin EC] 81 mg PO DAILY 06/16/18 03/27/19 Fexofenadine HCl [Mercedes Allergy] 180 mg PO DAILY 09/27/18 03/27/19 Albuterol Nebulized [Ventolin 2.5 mg INHALATION RT-QID PRN 11/02/18 03/27/19 Nebulized] Cholecalciferol [Vitamin D3 (25 1,000 unit PO DAILY 11/02/18 03/27/19 Mcg = 1000 Iu)] INSULIN LISPRO (HumaLOG) [humaLOG] 20 units SQ AC-TID 11/03/18 03/27/19 Furosemide [Lasix] 40 mg PO BID 03/27/19 03/27/19 HYDROcodone/APAP 7.5-325MG [[place] 1 tab PO DAILY PRN 03/27/19 03/27/19 7.5-325] Neuro B 800mg 800 mg PO DAILY 03/27/19 03/27/19 Repaglinide 1 mg PO TID 03/27/19 03/27/19 Allergies Allergy/AdvReac Type Severity Reaction Status Date / Time No Known Allergies Allergy Verified 03/27/19 15:01 Review of Systems ROS Statement: Those systems with pertinent positive or pertinent negative responses have been documented in the HPI. ROS Other: All systems not noted in ROS Statement are negative. Past Medical History Past Medical History: COPD, Diabetes Mellitus, GERD/Reflux, Hypertension, Myocardial Infarction (NH), Renal Disease, Sleep Apnea/CPAP/BIPAP, Vascular Disorder Additional Past Medical History / Comment(s): NEUROPATHY FEET, decreased kidney function, uses CPAP Last Myocardial Infarction Date:: 2015 History of Any Multi-Drug Resistant Organisms: None Reported Date of last positivie culture/infection: 02-07-19 MDRO Source:: bronchial Past Surgical History: Heart Catheterization, Heart Catheterization With Stent, Tonsillectomy Additional Past Surgical History / Comment(s): EGD, COLONOSCOPY, sinus surg. x3, chest/lung biopsy Past Anesthesia/Blood Transfusion Reactions: No Reported Reaction Date of Last Stent Placement:: 2015 Past Psychological History: No Psychological Hx Reported Smoking Status: Former smoker Past Alcohol Use History: None Reported Past Drug Use History: None Reported - Past Family History Father Family Medical History: Cancer, Myocardial Infarction (NH) Additional Family Medical History / Comment(s): Father had bone cancer. He at the age of 80yrs. Mother Family Medical History: AFIB, Myocardial Infarction (NH) Additional Family Medical History / Comment(s): Mother when she 82 years ol d and of a heart attack General Exam - General Exam Comments Initial Comments: Constitutional: NAD, AOX3, Pt has pleasant affect. HEENT: NC/AT, trachea midline, neck supple, no lymphadenopathy. Posterior pharynx non erythematous, without exudates. External ears appear normal, without discharge. Mucous membranes moist. Eyes PERRLA, EOM intact. There is no scleral icterus. No pallor noted. Cardiopulmonary: RRR, no murmurs, rubs or gallops, no JVD noted. Lungs CTAB in anterior and posterior alvarado. No peripheral edema. Abdominal exam: Abdomen soft and non-distended. Abdomen non-tender to palpation in all 4 quadrants. Bowel sounds active in LLQ. No hepatosplenomegaly. No ecchymosis Neuro: CN II-XII grossly intact. No nuchal rigidity. No raccon eyes, no pereira sign, no hemotympanum. No cervical spinal tenderness. MSK: No external skin changes right hip. Right hip pain exacerbated by range of motion. Distal pulses intact and equal. No posterior calf tenderness bilaterally, homans sign negative bilaterally. Posterior tibialis and radial pulse +2 bilaterally. Sensation intact in upper and lower extremities. Full active ROM in upper and lower extremities, 5/5 stregnth. Limitations: physical limitation Course Vital Signs 03/27/19 03/27/19 13:57 15:45 Temperature 97.9 F Pulse Rate 106 H 98 Respiratory 18 18 Rate Blood Pressure 137/99 132/73 O2 Sat by Pulse 94 L 98 Oximetry Medical Decision Making - Medical Decision Making 83-year-old male patient passed medical history significant for chronic right hip pain. Presents to ED with exacerbation of chronic right hip pain which has been ongoing for approximately 3 weeks.. Patient denies any recent falls or trauma. Patient reports that he follows up with Dr. Rain for his right hip pain and did have a steroid injection approximately 2 months ago. Patient also complains of left anterior epistaxis which began approximately half an hour prior to presentation. Denies any blood thinners. Denies any other complaints at this time. She will signs stable, afebrile. Physical exam displayed pain with range of motion of hip, no skin changes. Distal pulses intact and equal. Laboratory Investigation revealed mildly increased creatinine. Epistaxis resolved with nasal clamp. Patient will be admitted for intractable pain and mild likely prerenal HARI. Case discussed with Dr. Smith. - Lab Data Result diagrams: 03/27/19 15:47 03/27/19 15:47 Lab Results 03/27/19 03/27/19 Range/Units 15:47 15:47 WBC 9.2 (3.8-10.6) k/uL RBC 4.61 (4.30-5.90) m/uL Hgb 12.0 L (13.0-17.5) gm/dL Hct 39.2 (39.0-53.0) % MCV 85.0 (80.0-100.0) fL MCH 26.0 (25.0-35.0) pg MCHC 30.6 L (31.0-37.0) g/dL RDW 17.5 H (11.5-15.5) % Plt Count 215 (150-450) k/uL Neutrophils % 82 % Lymphocytes % 13 % Monocytes % 3 % Eosinophils % 2 % Basophils % 0 % Neutrophils # 7.5 (1.3-7.7) k/uL Lymphocytes # 1.2 (1.0-4.8) k/uL Monocytes # 0.3 (0-1.0) k/uL Eosinophils # 0.1 (0-0.7) k/uL Basophils # 0.0 (0-0.2) k/uL Anisocytosis Slight Sodium 138 (137-145) mmol/L Potassium 5.1 (3.5-5.1) mmol/L Chloride 104 (98-107) mmol/L Carbon Dioxide 19 L (22-30) mmol/L Anion Gap 15 mmol/L BUN 35 H (9-20) mg/dL Creatinine 2.09 H (0.66-1.25) mg/dL Est GFR (CKD-EPI)AfAm 33 (>60 ml/min/1.73 sqM) Est GFR (CKD-EPI)NonAf 29 (>60 ml/min/1.73 sqM) Glucose 178 H (74-99) mg/dL Calcium 9.3 (8.4-10.2) mg/dL Disposition Clinical Impression: HARI (acute kidney injury), Intractable pain Disposition: ADMITTED IP TO THIS HOSP Condition: Fair Is patient prescribed a controlled substance at d/c from ED?: No Referrals: Miguel Parra MD [Primary Care Provider] - 1-2 days
[2019-03-27] MEDS ORDERED: SODIUM CHLORIDE 0.9% 500 ML 500 ML IV STA (15:27)
[2019-03-27] MEDS ORDERED: HYDROmorphone 1 MG/ML 1 ML SYRINGE IVP STA (15:27)
--- NOTE | 2019-03-27 15:45 | XR ---
EXAMINATION TYPE: XR Hip RT and AP Pelvis DATE OF EXAM: 03/27/2019 COMPARISON: 02/05/2019 HISTORY: Right hip pain TECHNIQUE: AP pelvis supplemented with 2 views right hip FINDINGS: There is narrowing of the joint space. Femoral head articulates with the acetabulum. No acute fractures or dislocations are evident. Sacroiliac joints and symphysis pubis are normal. No significant interval changes evident. IMPRESSION: 1. Mild osteoarthritic degenerative change bilateral hips.
[2019-03-27] MEDS ORDERED: ONDANSETRON 4 MG/2 ML VIAL IVP STA (16:02)
[2019-03-27 16:17] LABS: Anisocytosis Slight; Basophils % (A) 0 %; Eosinophils # (A) 0.1 k/uL (0-0.7); Eosinophils % (A) 2 %; HCT 39.2 % (39.0-53.0); Lymphocytes # (A) 1.2 k/uL (1.0-4.8); Lymphocytes % (A) 13 %; MCHC 30.6 g/dL (31.0-37.0); Mean Platelet Volume 7.5; Monocytes # (A) 0.3 k/uL (0-1.0); Monocytes % (A) 3 %; Neutrophils # (A) 7.5 k/uL (1.3-7.7); Neutrophils % (A) 82 %; Platelet Count 215 k/uL (150-450); RBC 4.61 m/uL (4.30-5.90); RDW 17.5 % (11.5-15.5); WBC 9.2 k/uL (3.8-10.6)
[2019-03-27 16:18] LABS: Calcium 9.3 mg/dL (8.4-10.2); Potassium 5.1 mmol/L (3.5-5.1)
[2019-03-27] MEDS ORDERED: NALOXONE 0.4 MG/ML 1 ML VIAL IV PRN (16:25)
[2019-03-27] MEDS ORDERED: HYDROmorphone 1 MG/ML 1 ML SYRINGE IVP PRN (16:25)
[2019-03-27] MEDS ORDERED: ONDANSETRON 4 MG/2 ML VIAL IVP PRN (16:25)
[2019-03-27] MEDS ORDERED: OXYMETAZOLINE 0.05% NASL SPRAY 1 SPRAY BOTTLE NASAL STA (17:14)
--- NOTE | 2019-03-27 17:15 | ED ---
Medical Decision Making - Medical Decision Making Reevaluation of patient, epistaxis had reoccurred, primarily the left NANNETTE, also some posterior drainage. Nasal clamp was replaced, afrin spray ordered. Coagulation studies also ordered. Patient is not on any blood thinners. - Lab Data Result diagrams: 03/27/19 15:47 03/27/19 15:47 Lab Results 03/27/19 03/27/19 Range/Units 15:47 15:47 WBC 9.2 (3.8-10.6) k/uL RBC 4.61 (4.30-5.90) m/uL Hgb 12.0 L (13.0-17.5) gm/dL Hct 39.2 (39.0-53.0) % MCV 85.0 (80.0-100.0) fL MCH 26.0 (25.0-35.0) pg MCHC 30.6 L (31.0-37.0) g/dL RDW 17.5 H (11.5-15.5) % Plt Count 215 (150-450) k/uL Neutrophils % 82 % Lymphocytes % 13 % Monocytes % 3 % Eosinophils % 2 % Basophils % 0 % Neutrophils # 7.5 (1.3-7.7) k/uL Lymphocytes # 1.2 (1.0-4.8) k/uL Monocytes # 0.3 (0-1.0) k/uL Eosinophils # 0.1 (0-0.7) k/uL Basophils # 0.0 (0-0.2) k/uL Anisocytosis Slight Sodium 138 (137-145) mmol/L Potassium 5.1 (3.5-5.1) mmol/L Chloride 104 (98-107) mmol/L Carbon Dioxide 19 L (22-30) mmol/L Anion Gap 15 mmol/L BUN 35 H (9-20) mg/dL Creatinine 2.09 H (0.66-1.25) mg/dL Est GFR (CKD-EPI)AfAm 33 (>60 ml/min/1.73 sqM) Est GFR (CKD-EPI)NonAf 29 (>60 ml/min/1.73 sqM) Glucose 178 H (74-99) mg/dL Calcium 9.3 (8.4-10.2) mg/dL Disposition Clinical Impression: HARI (acute kidney injury), Intractable pain Disposition: ADMITTED IP TO THIS HOSP Condition: Fair Is patient prescribed a controlled substance at d/c from ED?: No Referrals: Miguel Parra MD [Primary Care Provider] - 1-2 days
[2019-03-27] MEDS: SODIUM CHLORIDE 0.9% 1,000 ML IV SCH (17:51)
--- NOTE | 2019-03-27 18:06 | ED ---
Medical Decision Making - Medical Decision Making Reevaluation of patient, clarification the epistaxis is from the right NARE and it does appear to be possibly posterior. Nasal clamp and Afrin proved ineffective. Nasal packing was initiated. ENT consulted. Case discussed with Dr. Smith, - Lab Data Result diagrams: 03/27/19 15:47 03/27/19 15:47 Lab Results 03/27/19 03/27/19 Range/Units 15:47 15:47 WBC 9.2 (3.8-10.6) k/uL RBC 4.61 (4.30-5.90) m/uL Hgb 12.0 L (13.0-17.5) gm/dL Hct 39.2 (39.0-53.0) % MCV 85.0 (80.0-100.0) fL MCH 26.0 (25.0-35.0) pg MCHC 30.6 L (31.0-37.0) g/dL RDW 17.5 H (11.5-15.5) % Plt Count 215 (150-450) k/uL Neutrophils % 82 % Lymphocytes % 13 % Monocytes % 3 % Eosinophils % 2 % Basophils % 0 % Neutrophils # 7.5 (1.3-7.7) k/uL Lymphocytes # 1.2 (1.0-4.8) k/uL Monocytes # 0.3 (0-1.0) k/uL Eosinophils # 0.1 (0-0.7) k/uL Basophils # 0.0 (0-0.2) k/uL Anisocytosis Slight Sodium 138 (137-145) mmol/L Potassium 5.1 (3.5-5.1) mmol/L Chloride 104 (98-107) mmol/L Carbon Dioxide 19 L (22-30) mmol/L Anion Gap 15 mmol/L BUN 35 H (9-20) mg/dL Creatinine 2.09 H (0.66-1.25) mg/dL Est GFR (CKD-EPI)AfAm 33 (>60 ml/min/1.73 sqM) Est GFR (CKD-EPI)NonAf 29 (>60 ml/min/1.73 sqM) Glucose 178 H (74-99) mg/dL Calcium 9.3 (8.4-10.2) mg/dL Disposition Clinical Impression: HARI (acute kidney injury), Intractable pain, Epistaxis Disposition: ADMITTED IP TO THIS HOSP Condition: Fair
[2019-03-27 18:12] LABS: INR 0.9 (<1.2); Partial Thromboplastin Time 27.7 sec (22.0-30.0); Prothrombin Time 10.2 sec (9.0-12.0)
[2019-03-27] MEDS ORDERED: HYDROcodone/APAP 7.5-325MG 1 EACH TAB PO PRN (19:59)
[2019-03-27] MEDS: FUROSEMIDE 40 MG TAB PO SCH (20:14)
[2019-03-27] MEDS: ATORVASTATIN 20 MG TAB PO SCH (20:14)
[2019-03-27] MEDS: GABAPENTIN 300 MG CAP PO SCH (20:14)
[2019-03-27 20:25] LABS: Glucose,Whole Blood 130 mg/dL (75-99)
[2019-03-27] MEDS: INSULIN ASPART (NovoLOG) 100 UNIT/ML VIAL SQ SCH (20:44)
[2019-03-27] MEDS: REPAGLINIDE 1 MG TAB PO SCH (20:58)
[2019-03-27] MEDS: methylPREDNISolone SOD SUCCI 40 MG/ML 1 ML VIAL IV SCH (23:23)
[2019-03-27] MEDS: HYDROmorphone 2 MG/ML 1 ML SYRINGE IVP PRN (23:23)
[2019-03-28] MEDS: HYDROcodone/APAP 7.5-325MG 1 EACH TAB PO PRN ×4 (03:02→21:29)
[2019-03-28] MEDS: SODIUM CHLORIDE 0.9% 1,000 ML IV SCH ×3 (03:02→23:25)
[2019-03-28] MEDS: HYDROmorphone 2 MG/ML 1 ML SYRINGE IVP PRN ×3 (04:49→17:48)
[2019-03-28 07:17] LABS: Glucose,Whole Blood 241 mg/dL (75-99)
[2019-03-28] MEDS: GABAPENTIN 300 MG CAP PO SCH ×3 (07:56→21:30)
[2019-03-28] MEDS: REPAGLINIDE 1 MG TAB PO SCH ×3 (07:56→21:29)
[2019-03-28] MEDS: METOPROLOL TARTRATE 50 MG TAB PO SCH (07:56)
[2019-03-28] MEDS: PANTOPRAZOLE 40 MG TABLET PO SCH (07:56)
[2019-03-28] MEDS: methylPREDNISolone SOD SUCCI 40 MG/ML 1 ML VIAL IV SCH ×3 (07:57→23:24)
[2019-03-28] MEDS: FUROSEMIDE 40 MG TAB PO SCH ×2 (07:57→21:29)
[2019-03-28] MEDS: CHOLECALCIFEROL 1,000 UNIT TAB PO SCH (07:57)
[2019-03-28] MEDS: INSULIN ASPART (NovoLOG) 100 UNIT/ML VIAL SQ SCH ×4 (07:57→21:30)
[2019-03-28 12:02] LABS: Anisocytosis Slight; HCT 34.7 % (39.0-53.0); HGB 11.1 gm/dL (13.0-17.5); Hypochromasia Slight; MCH 26.5 pg (25.0-35.0); MCHC 31.9 g/dL (31.0-37.0); MCV 83.1 fL (80.0-100.0); Mean Platelet Volume 6.5; Platelet Count 222 k/uL (150-450); RBC 4.17 m/uL (4.30-5.90); RDW 17.2 % (11.5-15.5); WBC 9.9 k/uL (3.8-10.6)
[2019-03-28 12:30] LABS: Glucose,Whole Blood 185 mg/dL (75-99)
[2019-03-28 16:59] LABS: Glucose,Whole Blood 240 mg/dL (75-99)
--- NOTE | 2019-03-28 17:36 | HP ---
HISTORY AND PHYSICAL DATE OF SERVICE: 03/27/2019 This is an 83-year-old white male who came into the hospital with severe right hip pain, unable to ambulate, and nasal bleeding. He was found to have a hemoglobin of 12. Hip and pelvis x-rays were done which showed some arthritis and associated severe right hip pain, unclear etiology. Awaiting orthopedic evaluation at this point. He did get an epidural shot with Dr. Lassiter 2 months ago for this pain. Pain was significantly severe half hour prior to any admission. He is on blood thinners. No blood thinners at home. He is admitted for pain control and orthopedic consult and rhinorrhea modification, monitoring. HOME MEDICINES: 1. Omeprazole. 2. Zocor. 3. Neurontin. 4. Lopressor. 5. Aspirin. 6. Ventolin. 7. Vitamin D3. 8. Humalog. 9. Lasix. 10.Henrietta. 11.Repaglinide. ALLERGIES: NO KNOWN DRUG ALLERGIES. REVIEW OF SYSTEMS: Fourteen-point review of systems negative except for mentioned in HPI. PAST MEDICAL HISTORY: 1. COPD. 2. Diabetes mellitus. 3. GERD. 4. Hypertension. 5. Coronary artery disease. 6. Renal disease. 7. Sleep apnea. 8. Vascular disorder. 9. Neuropathy of the feet. 10.Heart catheterization. 11.Heart catheterization with stent. 12.Tonsillectomy. 13.EGD. 14.Colonoscopy. 15.Sinus surgery x3. 16.Chest/lung biopsy. FAMILY HISTORY: Father with cancer, myocardial infarction. Mother with atrial fibrillation, myocardial infarctions. PHYSICAL EXAMINATION: He is elderly. BMI is over 40. He has a pleasant affect. Cranial nerves are intact. CARDIOVASCULAR: S1, S2. Irregularly irregular rhythm. LUNGS: Rales at the base. NEURO: Cranial nerves are intact. GI: Soft, nontender. No masses or organomegaly. HEMATOLOGY: Negative Homans. VASCULAR: Normal dorsalis pedis, posterior tibial and radial pulses. OPHTHALMOLOGIC: Pupils equal, round, reactive to light and accommodation. ASSESSMENT: 1. Acute on chronic right hip pain; unable to ambulate, severe pain, intractable pain. Orthopedics is consulted. 2. Epistaxis. Nasal clamp is placed. We will monitor for bleeding. 3. Prerenal acute kidney injury with elevated BUN and creatinine. Will also consult Nephrology. Rehydration. IV steroids for hip. Please see further orders. MMODL / IJN: [id number] /
[2019-03-28 20:26] LABS: Glucose,Whole Blood 258 mg/dL (75-99)
[2019-03-28] MEDS: ATORVASTATIN 20 MG TAB PO SCH (21:29)
--- NOTE | 2019-03-28 22:15 | CONS ---
CONSULTATION REASON FOR THE CONSULT: Epistaxis. HISTORY OF THE PRESENT ILLNESS: This patient is a very pleasant 83-year-old male who was admitted to on 03/27/2019, for evaluation and treatment of severe hip pain. The patient apparently has a history of severe degenerative osteoarthritis and was not able to get relief of his hip pain with home medications. Therefore he proceeded to the emergency room. Unfortunately, while in the emergency room, he developed a severe nosebleed. Multiple attempts at stopping this bleeding with cauterization, light packing, and suction was unsuccessful. The emergency room physicians decided to insert a rhino-stat anterior-posterior balloon packing to control the bleeding and the patient was subsequently admitted to the hospital for observation. The patient and the patient's states that the patient has had several minor nosebleeds over the course of the last several weeks. However, he has been able to stop these nosebleeds with the usual measures of simply pinching his nose or placing tissue paper in his nose. He states that he is currently on low-dose aspirin, although he states he is not sure why. His states that he is on the medication for his heart. PAST MEDICAL HISTORY: Past medical history reveals the patient is on the following medications: MEDICATIONS: Low-dose baby aspirin, simvastatin, albuterol, insulin, metoprolol, Prilosec, Neurontin, Lasix, Mercedes, and Archie 7.5 mg tablets. REVIEW OF SYSTEMS: Reveals that the CARDIOVASCULAR system is positive for hypertension. RESPIRATORY is positive for copd and sleep apnea. GASTROINTESTINAL system is positive for GERD, gastroesophageal reflux disorder. METABOLIC/ENDOCRINE system is positive for type 1 diabetes mellitus and hypercholesterolemia.MUSCULOSKELETAL system is positive for degenerative osteoarthritis. The remainder review of systems is unremarkable. SOCIAL HISTORY: The patient states that he quit smoking greater than 17 years ago. He apparently has had recent lung biopsies for possible lung CA. The patient states that he quit smoking approximately 17 years ago. However, he has been exposed to secondhand smoke. He has undergone a lung biopsy with a diagnosis of lung CA. He has not started any type of therapy or surgical treatment. PHYSICAL EXAMINATION: This patient is an 83-year-old male who is alert, cooperative and well oriented, to time and place. HEENT examination: Patient is normocephalic. Tympanic membranes are normal. Middle ear spaces are free of any fluid or infection. Pupils equal, round, react to light and accommodation. Extraocular movements are within normal limits. Intranasal examination reveals right nasal chamber was completely obstructed with a rhino-stat anterior- posterior balloon packing. There is no bleeding around the packing. Examination of the left naris does not reveal any evidence of any bleeding. Examination of oropharynx with attention to the posterior pharynx does not reveal any evidence of any bleeding down the posterior pharyngeal wall. Palpation of the neck, cranial nerves 2 through 12 and remainder of the head and neck exam including cranial nerves 2 through 12 are within normal limits CHEST/CARDIOVASCULAR: Both lung alvarado are clear to percussion and auscultation but lung sounds are distant. The patient is in regular sinus rhythm. S1, S2 are present without evidence of any murmurs S3s or S4. The remainder of physical exam is unremarkable. IMPRESSION: Right epistaxis, most likely anterior and posterior bleeding involved. PLAN: I advised the patient that unfortunately the nasal packing has to be left in place for anywhere from 5-7 days to allow time for the offending blood vessels to thrombose. Any attempt to remove that packing before that time will most likely lead to severe bleeding which will necessitate re- insertion of some type of packing. Each time, packing is removed and reinserted, of course that opens up new bleeding spots. I have advised the patient that I would like to see him in my office on Tuesday and at that time I will remove the packing. In the meantime, it is safe to leave the packing in for that long period of time. However, the patient should be placed on an antibiotic such as Keflex 500 mg b.i.d. mainly to prevent any type of sinus infection caused by obstruction of the normal drainage from the maxillary sinus ostia by the packing. The patient and the patient's understand the rationale for leaving the packing in for the extended period of time. Since the packing will be left in place, I do not feel it is necessary to stop the patient's low-dose baby aspirin at this time. I have advised the patient that if he has to sneeze, he should do so with his mouth open, so that the force of the sneeze comes through his mouth. I have also advised it is unlikely that just sneezing will cause the packing to come out because of the posterior balloon that is in place. Also, if the patient wants to use his c-pap machine it is ok At the time that I see the patient in the office, I will give him helpful hints which should be useful in avoiding bleeding episodes that usually occur during the winter months in patients who have to use supplemental oxygen or in the case of this patient even a C-PAP machine. I want to take this opportunity to thank you for allowing me to assist in the care of your patient. If I can be of any further assistance, please feel free to call my office. KASHMIR / JASON: [id number] / CHU
[2019-03-29] MEDS: HYDROmorphone 2 MG/ML 1 ML SYRINGE IVP PRN (03:35)
[2019-03-29 07:23] LABS: Glucose,Whole Blood 258 mg/dL (75-99)
[2019-03-29] MEDS: METOPROLOL TARTRATE 50 MG TAB PO SCH (08:13)
[2019-03-29] MEDS: GABAPENTIN 300 MG CAP PO SCH ×3 (08:13→21:28)
[2019-03-29] MEDS: FUROSEMIDE 40 MG TAB PO SCH ×2 (08:13→21:28)
[2019-03-29] MEDS: methylPREDNISolone SOD SUCCI 40 MG/ML 1 ML VIAL IV SCH (08:13)
[2019-03-29] MEDS: CHOLECALCIFEROL 1,000 UNIT TAB PO SCH (08:13)
[2019-03-29] MEDS: PANTOPRAZOLE 40 MG TABLET PO SCH (08:13)
[2019-03-29] MEDS: INSULIN ASPART (NovoLOG) 100 UNIT/ML VIAL SQ SCH ×4 (08:14→21:29)
[2019-03-29] MEDS: SODIUM CHLORIDE 0.9% 1,000 ML IV SCH ×2 (08:16→17:29)
[2019-03-29] MEDS: HYDROcodone/APAP 7.5-325MG 1 EACH TAB PO PRN ×3 (08:20→21:29)
[2019-03-29] MEDS: REPAGLINIDE 1 MG TAB PO SCH ×3 (08:20→21:28)
[2019-03-29 08:28] LABS: Anisocytosis Slight; Basophils % (A) 0 %; Eosinophils # (A) 0.1 k/uL (0-0.7); Eosinophils % (A) 0 %; HCT 35.9 % (39.0-53.0); HGB 10.9 gm/dL (13.0-17.5); Hypochromasia Slight; Lymphocytes # (A) 0.8 k/uL (1.0-4.8); Lymphocytes % (A) 5 %; MCH 26.3 pg (25.0-35.0); MCHC 30.2 g/dL (31.0-37.0); MCV 87.1 fL (80.0-100.0); Mean Platelet Volume 7.3; Monocytes # (A) 0.3 k/uL (0-1.0); Monocytes % (A) 2 %; Neutrophils # (A) 14.2 k/uL (1.3-7.7); Neutrophils % (A) 92 %; Platelet Count 235 k/uL (150-450); RBC 4.13 m/uL (4.30-5.90); RDW 17.5 % (11.5-15.5); WBC 15.5 k/uL (3.8-10.6)
[2019-03-29 08:48] LABS: Albumin 3.7 g/dL (3.5-5.0); Calcium 9.1 mg/dL (8.4-10.2); Potassium 5.1 mmol/L (3.5-5.1); Total Bilirubin 0.5 mg/dL (0.2-1.3); Total Protein 7.3 g/dL (6.3-8.2)
--- NOTE | 2019-03-29 09:43 | P.CNOR ---
History of Present Illness - [facility] Consult date: 03/29/19 Consult reason: joint pain History of present illness: Patient is an 83-year-old male who presented to [facility] a few days ago with regards to increasing pain of his right lower extremity along with a acute nosebleed. Patient has noted the hip pain over the last few months. He was initially evaluated by our service back in January, we determined that he likely had a trochanteric bursitis on the right side along with some mild/moderate hip arthritis. I performed a bedside cortisone injection. Patient did note improvement initially, he was evaluated in the outpatient setting by Dr. Lassiter, he was prescribed home therapy for trochanteric bursitis and lumbar radiculopathy. Initially HE had improvement, but it has since then worsen. Since being in hospital, he is being followed by both internal medicine and ENT X-rays were done in the ER this hips, demonstrate obvious osteoarthritis. After discussing with the patient at bedside, he has noted significant weakness in the right leg over the last 6 months or so. It was also brought to my attention by him and his daughter that he has a likely diagnosis of lung cancer, he was scheduled to follow-up with his cardiothoracic doctor today for the results. He continues to no most of the discomfort over the trochanteric area of the right hip. He notes some occasional radiating pain, this is not all the time. He denies any loss of bowel or bladder function. Past Medical History Past Medical History: COPD, Diabetes Mellitus, GERD/Reflux, Hypertension, Myocardial Infarction (ME), Renal Disease, Sleep Apnea/CPAP/BIPAP, Vascular Disorder Additional Past Medical History / Comment(s): NEUROPATHY FEET, decreased kidney function, uses CPAP Last Myocardial Infarction Date:: 2015 History of Any Multi-Drug Resistant Organisms: MRSA Year Discovered:: 02/07/19 MDRO Source:: MRSA BRONCH Past Surgical History: Heart Catheterization, Heart Catheterization With Stent, Tonsillectomy Additional Past Surgical History / Comment(s): EGD, COLONOSCOPY, sinus surg. x3, chest/lung biopsy Past Anesthesia/Blood Transfusion Reactions: No Reported Reaction Date of Last Stent Placement:: 2015 Past Psychological History: No Psychological Hx Reported Additional Psychological History / Comment(s): Pt resides alone. He has a cane and a walker which he uses prn. He drives. He is independent. Smoking Status: Former smoker Past Alcohol Use History: None Reported Additional Past Alcohol Use History / Comment(s): QUIT SMOKING 2006, SMOKED FROM AGE 1947- 3 TO 3 AND 1/2PPD Past Drug Use History: None Reported - Past Family History Father Family Medical History: Cancer, Myocardial Infarction (ME) Additional Family Medical History / Comment(s): Father had bone cancer. He at the age of 80yrs. Mother Family Medical History: AFIB, Myocardial Infarction (ME) Additional Family Medical History / Comment(s): Mother when she 82 years old and of a heart attack Medications and Allergies Home Medications Medication Instructions Recorded Confirmed Type Omeprazole [PriLOSEC] 20 mg PO DAILY 06/11/14 03/27/19 History Simvastatin [Zocor] 40 mg PO HS 06/11/14 03/27/19 History Gabapentin [Neurontin] 300 mg PO TID 10/16/17 03/27/19 History Metoprolol Tartrate [Lopressor] 50 mg PO DAILY 10/16/17 03/27/19 History Aspirin [Adult Low Dose Aspirin EC] 81 mg PO DAILY 06/16/18 03/27/19 History Fexofenadine HCl [Mercedes Allergy] 180 mg PO DAILY 09/27/18 03/27/19 History Albuterol Nebulized [Ventolin 2.5 mg INHALATION RT-QID PRN 11/02/18 03/27/19 History Nebulized] Cholecalciferol [Vitamin D3 (25 1,000 unit PO DAILY 11/02/18 03/27/19 History Mcg = 1000 Iu)] INSULIN LISPRO (HumaLOG) [humaLOG] 20 units SQ AC-TID 11/03/18 03/27/19 History Furosemide [Lasix] 40 mg PO BID 03/27/19 03/27/19 History HYDROcodone/APAP 7.5-325MG [Allons 1 tab PO QID PRN 03/27/19 03/27/19 History 7.5-325] Neuro B 800mg 800 mg PO DAILY 03/27/19 03/27/19 History Repaglinide 1 mg PO TID 03/27/19 03/27/19 History Allergies Allergy/AdvReac Type Severity Reaction Status Date / Time No Known Allergies Allergy Verified 03/27/19 15:01 Physical Examination Right lower extremity: No obvious open lesions or sores, no significant areas of soft tissue swelling o r ecchymosis Logroll maneuver the hip reproduces no groin pain, does reproduce pain over the trochanteric region. He's tender with direct palpation of the trochanteric bursa. He occasionally gets the radiating pain down the posterior side of the leg. No effusion present over the knee, range of motion is intact Calf is soft, no tenderness with palpation, sensory exam to light touch throughout the extremities intact. Skin is warm to touch on exam Results - Labs Labs: Abnormal Lab Results - Last 24 Hours (Table) 03/28/19 03/28/19 03/28/19 Range/Units 11:39 12:28 16:57 WBC (3.8-10.6) k/uL RBC 4.17 L (4.30-5.90) m/uL Hgb 11.1 L (13.0-17.5) gm/dL Hct 34.7 L (39.0-53.0) % MCHC (31.0-37.0) g/dL RDW 17.2 H (11.5-15.5) % Neutrophils # (1.3-7.7) k/uL Lymphocytes # (1.0-4.8) k/uL Sodium (137-145) mmol/L BUN (9-20) mg/dL Creatinine (0.66-1.25) mg/dL Glucose (74-99) mg/dL POC Glucose (mg/dL) 185 H 240 H (75-99) mg/dL ALT (21-72) U/L 03/28/19 03/29/19 03/29/19 Range/Units 20:25 07:20 07:55 WBC 15.5 H (3.8-10.6) k/uL RBC 4.13 L (4.30-5.90) m/uL Hgb 10.9 L (13.0-17.5) gm/dL Hct 35.9 L (39.0-53.0) % MCHC 30.2 L (31.0-37.0) g/dL RDW 17.5 H (11.5-15.5) % Neutrophils # 14.2 H (1.3-7.7) k/uL Lymphocytes # 0.8 L (1.0-4.8) k/uL Sodium (137-145) mmol/L BUN (9-20) mg/dL Creatinine (0.66-1.25) mg/dL Glucose (74-99) mg/dL POC Glucose (mg/dL) 258 H 258 H (75-99) mg/dL ALT (21-72) U/L 03/29/19 Range/Units 07:55 WBC (3.8-10.6) k/uL RBC (4.30-5.90) m/uL Hgb (13.0-17.5) gm/dL Hct (39.0-53.0) % MCHC (31.0-37.0) g/dL RDW (11.5-15.5) % Neutrophils # (1.3-7.7) k/uL Lymphocytes # (1.0-4.8) k/uL Sodium 135 L (137-145) mmol/L BUN 33 H (9-20) mg/dL Creatinine 1.63 H (0.66-1.25) mg/dL Glucose 256 H (74-99) mg/dL POC Glucose (mg/dL) (75-99) mg/dL ALT 18 L (21-72) U/L H & H 03/27/19 03/28/19 03/29/19 Range/Units 15:47 11:39 07:55 Hgb 12.0 L 11.1 L 10.9 L (13.0-17.5) gm/dL Hct 39.2 34.7 L 35.9 L (39.0-53.0) % Coagulation 03/27/19 Range/Units 17:54 INR 0.9 (<1.2) Result Diagrams: 03/29/19 07:55 03/29/19 07:55 - Diagnostic results Hip x-ray: report reviewed, image reviewed Assessment and Plan Plan: Imaging: X-rays of the hip demonstrated obvious osteoarthritic changes. Assessment: 1. Right hip pain 2. Right hip trochanteric bursitis 3. Lumbar radiculopathy 4. Possible diagnosis of lung cancer 5. Other medical comorbidities Plan: I was able to discuss the case with my attending Dr. Lassiter. With the concern of likely lung cancer diagnosis, and his current pain symptoms, recommend further imaging studies. I did order lumbar x-ray, along with MRIs of both the lumbar spine and the right hip. Await results of these test Pain control Other medical specialty recommendations Further recommendations to follow after imaging studies Time with Patient: Less than 30
--- NOTE | 2019-03-29 11:10 | XR ---
EXAMINATION TYPE: XR lumbar spine 2 or 3V DATE OF EXAM: 03/29/2019 CLINICAL HISTORY: Low back pain and radiculopathy TECHNIQUE: Frontal and lateral images of the lumbar spine are obtained. COMPARISON: 02/05/2019 FINDINGS: There are 5 lumbar type vertebral bodies identified. There is a levoscoliosis of the lumba r spine. Extensive atherosclerosis is seen of the abdominal aorta with saccular aneurysm at L3 measur ing 3.8 cm in anterior posterior dimension. The lumbar spine shows no evidence of acute fracture. Mi nimal retrolisthesis of L3 on L4 is likely on a degenerative basis. Vertebral body heights are within normal limits. Intervertebral disc space narrowing is seen at L5-S1. Multilevel anterior osteophytes are present throughout the lumbar spine with facet arthropathy from L3 through S1. IMPRESSION: 1. No acute fracture of the lumbar spine. 2. Redemonstration of an abdominal aortic aneurysm within a severely calcified abdominal aorta. Aneur ysm measures approximately 3.8 cm in anterior posterior dimension. 3. Mild retrolisthesis of L3 on L4 is likely on a degenerative basis as there is background moderate degenerative change of the spine. 4. Mild levoscoliosis of the lumbar spine.
[2019-03-29 11:50] LABS: Glucose,Whole Blood 203 mg/dL (75-99)
[2019-03-29 17:15] LABS: Glucose,Whole Blood 218 mg/dL (75-99)
[2019-03-29 20:30] LABS: Glucose,Whole Blood 200 mg/dL (75-99)
[2019-03-29] MEDS: ATORVASTATIN 20 MG TAB PO SCH (21:28)
[2019-03-30] MEDS: HYDROcodone/APAP 7.5-325MG 1 EACH TAB PO PRN ×2 (02:53→20:34)
[2019-03-30] MEDS: HYDROmorphone 2 MG/ML 1 ML SYRINGE IVP PRN ×4 (02:56→18:14)
--- NOTE | 2019-03-30 06:08 | PN ---
PROGRESS NOTE This is a white male with right hip pain, bone on bone, waiting for a hip MRI tomorrow morning. Discussed biopsies of his recent chest biopsy with Dr. Finley. Both lymph node biopsies are negative for infection and negative for any cancer. Epistaxis, he has got a tube in his nose for nasal compression until Tuesday. As mentioned, MRI is tomorrow. ASSESSMENT: 1. Acute kidney injury, improving. 2. Chronic obstructive pulmonary disease. 3. . 4. Epistaxis. 5. Hip bursitis, right. Continue current treatment. Await for orthopedic MRI. Continue with nasal compression tube. Follow up in the next 24 to 48 hours. MMODL / IJN: [id number] /
[2019-03-30] MEDS: SODIUM CHLORIDE 0.9% 1,000 ML IV SCH ×3 (06:55→23:33)
[2019-03-30 07:31] LABS: Glucose,Whole Blood 185 mg/dL (75-99)
[2019-03-30] MEDS: PANTOPRAZOLE 40 MG TABLET PO SCH (07:40)
[2019-03-30] MEDS: CHOLECALCIFEROL 1,000 UNIT TAB PO SCH (07:40)
[2019-03-30] MEDS: INSULIN ASPART (NovoLOG) 100 UNIT/ML VIAL SQ SCH ×4 (07:40→20:34)
[2019-03-30] MEDS: METOPROLOL TARTRATE 50 MG TAB PO SCH (07:40)
[2019-03-30] MEDS: GABAPENTIN 300 MG CAP PO SCH ×3 (07:40→20:34)
[2019-03-30] MEDS: REPAGLINIDE 1 MG TAB PO SCH ×3 (07:40→20:34)
[2019-03-30] MEDS: FUROSEMIDE 40 MG TAB PO SCH ×2 (07:40→20:34)
--- NOTE | 2019-03-30 11:21 | P.PN ---
Subjective Progress Note Date: 03/30/19 Principal diagnosis: Right hip pain, right low back pain, right hip osteoarthritis, lumbar spine degenerative disc disease, squamous cell lung cancer Patient was evaluated today at bedside, his daughters present. Dr. Lassiter was also with me today to evaluate patient. Patient was scheduled for his MRI of the lumbar and hip this morning, they were unable to do the test. Patient was very uncomfortable and could not tolerate getting into the machine. X-rays were done on the lumbar spine yesterday. He continues to have severe pain involving the posterior right leg. Patient's daughter stated that she did give results from the cardiothoracic surgeon, he does have squamous cell cancer in his long. He remains on IV pain medication as needed. Objective - Vital Signs Vital signs: Vital Signs Temp 97.4 F L 03/30/19 05:54 Pulse 67 03/30/19 05:54 Resp 20 03/30/19 05:54 BP 154/77 03/30/19 05:54 Pulse Ox 93 L 03/30/19 05:54 Intake & Output 03/29/19 03/30/19 03/30/19 18:59 06:59 18:59 Intake Total 520 Output Total 1300 1300 Balance -780 -1300 Intake: Oral 520 Output: Urine 1300 1300 Other: Voiding Method Urinal Urinal # Voids 2 - Exam Right lower extremity: No obvious open lesions or sores present throughout the extremity Dillon there is erythema or soft tissue swelling Logroll maneuver reproduces no pain Straight leg raise is positive, tender with palpation throughout the lumbar spine along with sacral notch No tenderness with palpation, sensation to light touch throughout the extremity is intact, skin is warm to touch - Labs CBC & Chem 7: 03/29/19 07:55 03/29/19 07:55 Labs: Abnormal Lab Results - Last 24 Hours (Table) 03/29/19 03/29/19 03/29/19 Range/Units 11:48 17:10 20:29 POC Glucose (mg/dL) 203 H 218 H 200 H (75-99) mg/dL 03/30/19 Range/Units 07:17 POC Glucose (mg/dL) 185 H (75-99) mg/dL Assessment and Plan Plan: Assessment: 1. Right lower extremity pain 2. Low back pain 3. Mild/moderate right hip osteoarthritis 4. Lumbar spine degenerative disc disease 5. Lumbar radiculopathy 6. Squamous cell lung cancer Plan: Dr. Lassiter was available today to discuss current situation with patient and daughter. With recent diagnosis of cancer in the long along with his physical exam findings demonstrating severe pain in that leg, patient does need an MRI of the lumbar spine and right hip. Discussed with the nurse today to discuss with internal medicine medication to help patient relax and relief pain for MRI Pain control per primary medical team Further recommendations after MRI results Time with Patient: Less than 30
[2019-03-30 12:16] LABS: Glucose,Whole Blood 165 mg/dL (75-99)
[2019-03-30] MEDS ORDERED: DIAZEPAM 5 MG/ML 2 ML INJ IVP ONE (13:30)
--- NOTE | 2019-03-30 15:53 | MR ---
EXAMINATION TYPE: MR lumbar spine wo con DATE OF EXAM: 03/30/2019 COMPARISON: NONE HISTORY: radiculopathy/possible lung cancer diagnoses TECHNIQUE: T1 and T2 axial and sagittal images of the lumbar spine are submitted. FINDINGS: There is no abnormal signal seen within the visualized spinal cord or paraspinal soft tissu es. There is a 3.5 cm infrarenal abdominal aortic aneurysm. Alignment is anatomic. Vertebral body hei ght is maintained. Vertebral marrow signal is maintained. At L1-2 there is no disc herniation or canal stenosis. Mild hypertrophic change of the facets. No for aminal encroachment. At L2-3 there is disc desiccation with hypertrophic change of the facet joints. No foraminal encroach ment or disc herniation. No Canal stenosis. At L3-4 there is degenerative disc disease with marked facet hypertrophy. There is broad-based centra l disc protrusion or herniation resulting in moderate to severe canal stenosis and moderate bilateral foraminal encroachment. There is intermediate signal extending from the disc space posterior to the upper margin of the L4 vertebral body paracentrally to the right suspicious for extruded disc herniat ion. At L4-5 there is a central broad-based disc bulging with severe facet arthropathy and ligamentum flav um hypertrophy results in moderate canal stenosis and mild bilateral foraminal encroachment. At L5-S1 there is disc desiccation and advanced facet arthropathy. There is an annular tear but no fo cornelia herniation. Neural foramina patent. IMPRESSION: 1. Broad-based central disc herniation with hypertrophic change of the facets and ligamentum flavum L3-L4 results in severe canal stenosis with bilateral foraminal encroachment. Posterior to the L4 john paul tebral body superiorly paracentrally to the right there is intermediate signal consistent with an ext ruded disc fragment extending toward the right nerve root and right lateral recess. 2. Broad-based disc bulging with severe advanced facet arthropathy and ligamentum flavum hypertrophy L4-L5 results in moderate central canal stenosis and bilateral mild foraminal encroachment. 3. There is a 3.5 cm infrarenal abdominal aortic aneurysm. 4. Multilevel degenerative disc disease and facet arthropathy.
--- NOTE | 2019-03-30 16:03 | MR ---
EXAMINATION TYPE: MR hip RT wo con DATE OF EXAM: 03/30/2019 COMPARISON: CT right hip 02/05/2019 HISTORY: hip pain/possible lung cancer diagnoses Standard multiplanar, multisequence MRI departmental protocol Multiplanar, multisequence images of the right hip were acquired. FINDINGS: Exam is limited by artifact. Grossly the marrow signal is homogeneous bilaterally with no diagnostic evidence of a space-occupying lesion. Mild concentric narrowing the joint space is seen. The bladder is distended. Facet arthropathy and de generative change of the lower lumbar spine noted. There is muscular atrophy. Fat-containing bilatera l inguinal hernia noted. No free fluid in the pelvis. No adenopathy. Soft tissue mass. Mild concentric narrowing the joint space without evidence of erosion. There is hypertrophic change of the acetabulum be associated with femoral acetabular impingement. Navin cific signal seen along the acetabular labrum with a small amount of fluid is suspicious for an aceta bular labral tear. IMPRESSION: 1. No diagnostic evidence of metastasis. Exam is severely limited due to artifact. Correlate with bon e scan on a follow-up basis if symptoms persist given the limitation of this study. Note is made there does appear to be a large disc herniation at L3-L4 on the MRI report of the lumbar spine with extrusion and probable encroachment upon the right nerve root. Correlate for radiculopath y at this level. 2. Arthropathy with no evidence of erosive change. Correlate for femoral acetabular impingement and a cetabular labral chronic tear. 3. The bladder is markedly distended correlate clinically.
[2019-03-30 16:51] LABS: Glucose,Whole Blood 163 mg/dL (75-99)
--- NOTE | 2019-03-30 16:51 | P.PN ---
Progress Note - Text Progress Note Date: 03/30/19 MRI report of the lumbar spine shows large disc herniation L3-4 on the right. At this point I would recommend evaluation by the pain service for possible epidural steroid injection. He can also participate with therapy weightbearing as tolerated with a walker. MRI report for the right hip shows no definite metastatic lesions.
[2019-03-30 20:19] LABS: Glucose,Whole Blood 166 mg/dL (75-99)
[2019-03-30] MEDS: ATORVASTATIN 20 MG TAB PO SCH (20:34)
--- NOTE | 2019-03-30 20:37 | PN ---
PROGRESS NOTE This is an 83-year-old white male with acute kidney injury, COPD, CHF, epistaxis, hip bursitis on the right. He is having no chest pain or shortness of breath. No lightheadedness, syncope. Discussed the biopsies of the recent chest, which were negative for cancer and infection. Awaiting MRI of the hip today. Valium was needed, as he went down once and he did not get an MRI of the hip until Valium was given. CARDIOVASCULAR: S1, S2. LUNGS: Clear. GI: Soft. HEMATOLOGY: Negative Homans. ASSESSMENT: 1. Acute kidney injury. 2. Chronic obstructive pulmonary disease. 3. Congestive heart failure. 4. Epistaxis. 5. Right hip bursitis. Continue current treatment. MRI is pending. Possible right hip surgery is needed, as he is unable to move his hip. Follow up in the next 24 to 48 hours for possible orthopedic surgery. Recommendations from Orthopedics, since he is unable to move his right hip. MMODL / IJN: [id number] /
[2019-03-30] MEDS: ALBUTEROL NEBULIZED 2.5 MG/3 ML INHALATION PRN (21:51)
[2019-03-31] MEDS: HYDROmorphone 2 MG/ML 1 ML SYRINGE IVP PRN ×4 (02:19→20:53)
[2019-03-31 07:10] LABS: Glucose,Whole Blood 264 mg/dL (75-99)
[2019-03-31 08:41] LABS: Calcium 9.1 mg/dL (8.4-10.2); Potassium 4.8 mmol/L (3.5-5.1)
[2019-03-31] MEDS: REPAGLINIDE 1 MG TAB PO SCH ×3 (09:05→20:55)
[2019-03-31] MEDS: CHOLECALCIFEROL 1,000 UNIT TAB PO SCH (09:05)
[2019-03-31] MEDS: METOPROLOL TARTRATE 50 MG TAB PO SCH (09:05)
[2019-03-31] MEDS: GABAPENTIN 300 MG CAP PO SCH ×3 (09:05→20:54)
[2019-03-31] MEDS: INSULIN ASPART (NovoLOG) 100 UNIT/ML VIAL SQ SCH ×4 (09:05→20:54)
[2019-03-31] MEDS: FUROSEMIDE 40 MG TAB PO SCH ×2 (09:05→20:54)
[2019-03-31] MEDS: PANTOPRAZOLE 40 MG TABLET PO SCH (09:05)
[2019-03-31 10:39] LABS: Appearance,Urine Clear (Clear); Bilirubin,Urine Negative (Negative); Blood,Urine Negative (Negative); Color,Urine Yellow; Glucose,Urine (UA) 2+ (Negative); Ketones,Urine Negative (Negative); Leukocyte Esterase,Urine Negative (Negative); Nitrite,Urine Negative (Negative); Protein,Urine Trace (Negative); Specific Gravity,Urine 1.013 (1.001-1.035); Urobilinogen,Urine <2.0 mg/dL (<2.0)
--- NOTE | 2019-03-31 10:59 | XR ---
EXAMINATION TYPE: XR chest 1V DATE OF EXAM: 03/31/2019 HISTORY: sob. REFERENCE: Previous study dated 03/22/2019. FINDINGS: Heart is mildly enlarged. There is worsening consolidation in the right midlung likely in t he superior segment of the right lower lobe. Pleural spaces appear clear. IMPRESSION: 1. CARDIOMEGALY. 2. WORSENING INFILTRATE IN THE RIGHT MIDLUNG LIKELY REPRESENTING PNEUMONIA.
[2019-03-31] MEDS: ALBUTEROL NEBULIZED 2.5 MG/3 ML INHALATION PRN (11:00)
[2019-03-31] MEDS: SODIUM CHLORIDE 0.9% 1,000 ML IV SCH ×2 (11:02→13:19)
--- NOTE | 2019-03-31 11:10 | P.CNOR ---
History of Present Illness - [facility] Consult date: 03/31/19 Consult reason: other (Right lower extremity and right hip pain) History of present illness: Patient's 83-year-old man with multiple medical history including acute renal injury history of lung CA has been having severe pain at his right lower extremity over the past several months but has worsened severely over the past week. He feels the pain is over his lateral thigh on the right. He has great difficulty with his mobilization and any ambulation. He does not note any specific injury or trauma. Typically he is able to walk around the house with a walker on his own on short distances but he has been having great difficulty with any sort of ambulation over the past week. His strength and mobilization have been worsening over the past several days. He has been having workup with medical service as well as orthopedics with Dr. Rain. He has had evaluation for his hip and for his low back. His hip evaluation to show any metastatic disease or acute fracture. His lumbar workup showed evidence of degenerative disc disease at L3 4 and L4 5 with likely new herniated disc at L3 4 causing central and severe right foraminal stenosis. We are asked to see the patient in regards to his lumbar spine. Review of Systems Positive multiple medical history. He is oxygen dependent. He is unlimited ambulatory with a walker at home. He does not drive. He has had limited wa lking. Positive significant history of lung CA positive new acute renal insufficiency Past Medical History Past Medical History: COPD, Diabetes Mellitus, GERD/Reflux, Hypertension, Myocardial Infarction ([place]), Renal Disease, Sleep Apnea/CPAP/BIPAP, Vascular Di sorder Additional Past Medical History / Comment(s): NEUROPATHY FEET, decreased kidney function, uses CPAP Last Myocardial Infarction Date:: 2015 History of Any Multi-Drug Resistant Organisms: MRSA Year Discovered:: 02/07/19 MDRO Source:: MRSA BRONCH Past Surgical History: Heart Catheterization, Heart Catheterization With Stent, Tonsillectomy Additional Past Surgical History / Comment(s): EGD, COLONOSCOPY, sinus surg. x3, chest/lung biopsy Past Anesthesia/Blood Transfusion Reactions: No Reported Reaction Date of Last Stent Placement:: 2015 Past Psychological History: No Psychological Hx Reported Additional Psychological History / Comment(s): Pt resides alone. He has a cane and a walker which he uses prn. He drives. He is independent. Smoking Status: Former smoker Past Alcohol Use History: None Reported Additional Past Alcohol Use History / Comment(s): QUIT SMOKING 2006, SMOKED FROM AGE 1947- 3 TO 3 AND 1/2PPD Past Drug Use History: None Reported - Past Family History Father Family Medical History: Cancer, Myocardial Infarction ([place]) Additional Family Medical History / Comment(s): Father had bone cancer. He at the age of 80yrs. Mother Family Medical History: AFIB, Myocardial Infarction ([place]) Additional Family Medical History / Comment(s): Mother when she 82 years old and of a heart attack Medications and Allergies Home Medications Medication Instructions Recorded Confirmed Type Omeprazole [PriLOSEC] 20 mg PO DAILY 06/11/14 03/27/19 History Simvastatin [Zocor] 40 mg PO HS 06/11/14 03/27/19 History Gabapentin [Neurontin] 300 mg PO TID 10/16/17 03/27/19 History Metoprolol Tartrate [Lopressor] 50 mg PO DAILY 10/16/17 03/27/19 History Aspirin [Adult Low Dose Aspirin EC] 81 mg PO DAILY 06/16/18 03/27/19 History Fexofenadine HCl [Mercedes Allergy] 180 mg PO DAILY 09/27/18 03/27/19 History Albuterol Nebulized [Ventolin 2.5 mg INHALATION RT-QID PRN 11/02/18 03/27/19 History Nebulized] Cholecalciferol [Vitamin D3 (25 1,000 unit PO DAILY 11/02/18 03/27/19 History Mcg = 1000 Iu)] INSULIN LISPRO (HumaLOG) [humaLOG] 20 units SQ AC-TID 11/03/18 03/27/19 History Furosemide [Lasix] 40 mg PO BID 03/27/19 03/27/19 History HYDROcodone/APAP 7.5-325MG [[place] 1 tab PO QID PRN 03/27/19 03/27/19 History 7.5-325] Neuro B 800mg 800 mg PO DAILY 03/27/19 03/27/19 History Repaglinide 1 mg PO TID 03/27/19 03/27/19 History Allergies Allergy/AdvReac Type Severity Reaction Status Date / Time No Known Allergies Allergy Verified 03/27/19 15:01 Physical Examination Osteopathic Statement: *. No significant issues noted on an osteopathic structural exam other than those noted in the History and Physical/Consult. - L Spine: dermatomal strength & reflexes bilateral Strength: hip flexion: 3/5 (At his back he hasspecific tenderness. He has great difficulty with trying to mobilize in bed. His lower extremities he has global deconditioning and difficulty with motion. At his right leg he is able to lift his leg up off the bed for short periods. He has sustained dorsal to plantar flexion and EHL. He does not have pain in his hip with internal/external rotation at his hip joint. His thighs and calves soft nontender. His knee is nontender to palpation. Compartments are soft. He has no hyperreflexia. No clonus. He is unable to get up out of bed without significant assistance) Results - Labs Labs: Abnormal Lab Results - Last 24 Hours (Table) 03/30/19 03/30/19 03/30/19 Range/Units 12:11 16:40 20:12 Sodium (137-145) mmol/L BUN (9-20) mg/dL Creatinine (0.66-1.25) mg/dL Glucose (74-99) mg/dL POC Glucose (mg/dL) 165 H 163 H 166 H (75-99) mg/dL Urine Protein (Negative) Urine Glucose (UA) (Negative) 03/31/19 03/31/19 03/31/19 Range/Units 07:05 07:28 10:00 Sodium 136 L (137-145) mmol/L BUN 45 H (9-20) mg/dL Creatinine 1.77 H (0.66-1.25) mg/dL Glucose 288 H (74-99) mg/dL POC Glucose (mg/dL) 264 H (75-99) mg/dL Urine Protein Trace H (Negative) Urine Glucose (UA) 2+ H (Negative) H & H 03/27/19 03/28/19 03/29/19 Range/Units 15:47 11:39 07:55 Hgb 12.0 L 11.1 L 10.9 L (13.0-17.5) gm/dL Hct 39.2 34.7 L 35.9 L (39.0-53.0) % Coagulation 03/27/19 Range/Units 17:54 INR 0.9 (<1.2) Result Diagrams: 03/29/19 07:55 03/31/19 07:28 - Diagnostic results Lumbar MRI with/without contrast: report reviewed, image reviewed (Imaging of his hip and his lumbar spine reviewed. He has significant disc degeneration L3 4 and L4 5. There is central and bilateral foraminal stenosis L3 4. There appears to be a right paracentral disc herniation with extruded fragment and caudal migration from L3 4 behind the vertebral body of L5 4. There is diffuse disc bulging left paracentral disc protrusion L4 5 left foraminal encroachment. There is no acute bony loss or evidence of pathologic process at the vertebral bones.) Assessment and Plan Assessment: Multiple medical history with lung CA Acute renal injury with insufficiency Right lower extremity radiculopathy and right hip pain due to disc herniation L3 4 and disc degeneration L3 4 and L4 5 Oxygen dependent Inability to mobilize Plan: Multiple medical history with lung CA Acute renal injury with insufficiency Right lower extremity radiculopathy and right hip pain due to disc herniation L3 4 and disc degeneration L3 4 and L4 5 Oxygen dependent Inability to mobilize The patient's right lower extremity symptoms seem to stem primarily from his lumbar spine and disc herniation L3 4 with stenosis L3 4. 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 The primary source of his symptoms at his right leg stem from the L3 4 disc herniation. He has severe multiple medical histories and is in somewhat frail state at this point. He is not a and a for surgical intervention at this time due to his frail state renal issues and long issues. He may have some benefit with conservative treatment medical management. I would like to see if he is able take some steroid alleviate some of the radicular symptoms. We'll have interventional pain management see him and decide if he is able to be a candidate for interventional pain management and epidural steroid injections targeting the L3 4 space. This may alleviate significant symptoms for him and allow him to improve his mobility and ambulation. I discussed this with him and his daughter at length bedside and they understand.
[2019-03-31] MEDS: ACETAMINOPHEN TAB 325 MG TAB PO PRN (11:17)
[2019-03-31] MEDS: BISACODYL 5 MG TABLET.DR PO PRN (11:17)
[2019-03-31] MEDS: methylPREDNISolone SOD SUCCI 125 MG/2 ML VIAL IV SCH ×2 (11:17→20:54)
[2019-03-31 11:19] LABS: Glucose,Whole Blood 268 mg/dL (75-99)
--- NOTE | 2019-03-31 12:26 | P.CRDCN ---
History of Present Illness History of present illness: This is a pleasant 83-year-old male past medical history significant for lung cancer, coronary artery disease status post angioplasty of the LAD and circumflex July 2017, COPD, diabetes mellitus, hypertension, chronic diastolic heart failure, peripheral vascular disease and former nicotine dependence. We have been asked to see him in consultation secondary to shortness of breath. He follows in the office with Dr. Zamudio. He recently saw him in the office in February secondary to presurgical evaluation prior to scheduled for lobectomy. At that time he underwent echocardiography and stress testing. Lexiscan stress test was negative for reversibility. Echocardiogram showed normal LV function. His scheduled lobectomy was canceled secondary to significant discomfort in the hip and further workup required. He is seen and examined sitting up in bed with a nonrebreather mask on. He has become quite short of breath and is currently in the process of being transferred to the selective care unit. He denies chest discomfort, palpitations, nausea, vomiting or diaphoresis. We have requested a baseline EKG as he has not had one yet this admission. Chest x-ray obtained reveals cardiomegaly with a worsening infiltrate in the right mid lung likely represen ting pneumonia. Laboratory data reviewed, sodium 136, potassium 4.8, creatinine 1.77, WBC 15.5, hemoglobin 10.9, platelets 235. Current daily cardiac medications include aspirin 81 mg daily, Lasix 40 mg twice a day, Lopressor 50 mg daily and simvastatin 40 mg daily. At the time of my exam: CONSTITUTIONAL: Denies fever. Denies chills. EYES: Denies blurred vision. Denies vision changes. Denies eye pain. EARS, NOSE, MOUTH & THROAT: Denies headache. Denies sore throat. Denies ear pain. CARDIOVASCULAR: Denies chest pain. Complains of shortness of breath. Denies orthopnea. Denies PND. Denies palpitations. RESPIRATORY: Denies cough. GASTROINTESTINAL: Denies abdominal pain. Denies diarrhea. Denies constipation. Denies nausea. Denies vomiting. MUSCULOSKELETAL: Denies myalgias. INTEGUMENTARY: Denies pruitis. Denies rash. NEUROLOGIC: Denies numbness. Denies tingling. Denies weakness. PSYCHIATRIC: Denies anxiety. Denies depression. ENDOCRINE: Denies fatigue. Denies weight change. Denies polydipsia. Denies polyurina. GENITOURINARY: Denies burning, hematuria or urgency with micturation. HEMATOLOGIC: Denies history of anemia. Denies bleeding. Blood pressure 108/56 heart rate 70 temperature of 100.6F maintaining oxygen saturation on a Ventimask GENERAL: This is a 83-year-old male in no apparent distress at the time of my examination. HEENT: Head is atraumatic, normocephalic. Pupils are equal, round. Sclerae anicteric. Conjunctivae are clear. Mucous membranes of the mouth are moist. Neck is supple. There is no jugular venous distention. No carotid bruit is heard. LUNGS: Scattered rhonchi, no rales or wheezes. No chest wall tenderness is noted on palpation or with deep breathing. HEART: Regular rate and rhythm without murmurs, rubs or gallops. S1 and S2 heard. ABDOMEN: Soft, nontender. Bowel sounds are heard. No organomegaly noted. EXTREMITIES: No evidence of peripheral edema and no calf tenderness noted. VASCULAR: Radial and dorsalis pedis pulses palpated, no evidence of clubbing. NEUROLOGIC: Patient is awake, alert and oriented x3. ASSESSMENT Shortness of breath likely related to underlying pneumonia Febrile illness History of lung cancer Coronary artery disease status post angioplasty in 2018 Diabetes mellitus Hypertension Chronic diastolic heart failure, currently euvolemic PLAN Obtain EKG. Recent stress test and echocardiogram reviewed. No evidence to suggest progression of coronary artery disease. Check d-dimer. Recommend further evaluation by the pulmonary care team. Thank you kindly for this consultation. Nurse Practitioner note has been reviewed, I agree with a documented findings and plan of care. Patient was seen and examined. Past Medical History Past Medical History: COPD, Diabetes Mellitus, GERD/Reflux, Hypertension, Myocardial Infarction ([place]), Renal Disease, Sleep Apnea/CPAP/BIPAP, Vascular Disorder Additional Past Medical History / Comment(s): NEUROPATHY FEET, decreased kidney function, uses CPAP Last Myocardial Infarction Date:: 2015 History of Any Multi-Drug Resistant Organisms: MRSA Date of last positivie culture/infection: 02/07/19 MDRO Source:: MRSA BRONCH Past Surgical History: Heart Catheterization, Heart Catheterization With Stent, Tonsillectomy Additional Past Surgical History / Comment(s): EGD, COLONOSCOPY, sinus surg. x3, chest/lung biopsy Past Anesthesia/Blood Transfusion Reactions: No Reported Reaction Date of Last Stent Placement:: 2016 Past Psychological History: No Psychological Hx Reported Additional Psychological History / Comment(s): Pt resides alone. He has a cane and a walker which he uses prn. He drives. He is independent. Smoking Status: Former smoker Past Alcohol Use History: None Reported Additional Past Alcohol Use History / Comment(s): QUIT SMOKING 2006, SMOKED FROM AGE 1947- 3 TO 3 AND 1/2PPD Past Drug Use History: None Reported - Past Family History Father Family Medical History: Cancer, Myocardial Infarction ([place]) Additional Family Medical History / Comment(s): Father had bone cancer. He at the age of 80yrs. Mother Family Medical History: AFIB, Myocardial Infarction ([place]) Additional Family Medical History / Comment(s): Mother when she 82 years old and of a heart attack Medications and Allergies Home Medications Medication Instructions Recorded Confirmed Type Omeprazole [PriLOSEC] 20 mg PO DAILY 06/11/14 03/27/19 History Simvastatin [Zocor] 40 mg PO HS 06/11/14 03/27/19 History Gabapentin [Neurontin] 300 mg PO TID 10/16/17 03/27/19 History Metoprolol Tartrate [Lopressor] 50 mg PO DAILY 10/16/17 03/27/19 History Aspirin [Adult Low Dose Aspirin EC] 81 mg PO DAILY 06/16/18 03/27/19 History Fexofenadine HCl [Mercedes Allergy] 180 mg PO DAILY 09/27/18 03/27/19 History Albuterol Nebulized [Ventolin 2.5 mg INHALATION RT-QID PRN 11/02/18 03/27/19 History Nebulized] Cholecalciferol [Vitamin D3 (25 1,000 unit PO DAILY 11/02/18 03/27/19 History Mcg = 1000 Iu)] INSULIN LISPRO (HumaLOG) [humaLOG] 20 units SQ AC-TID 11/03/18 03/27/19 History Furosemide [Lasix] 40 mg PO BID 03/27/19 03/27/19 History HYDROcodone/APAP 7.5-325MG [[place] 1 tab PO QID PRN 03/27/19 03/27/19 History 7.5-325] Neuro B 800mg 800 mg PO DAILY 03/27/19 03/27/19 History Repaglinide 1 mg PO TID 03/27/19 03/27/19 History Allergies Allergy/AdvReac Type Severity Reaction Status Date / Time No Known Allergies Allergy Verified 03/27/19 15:01 Physical Exam Vitals: Vital Signs Temp Pulse Pulse Resp BP Pulse Ox 03/31/19 11:23 86 03/31/19 11:13 85 03/31/19 10:54 100.6 F H 70 20 108/56 98 03/31/19 05:00 96.9 F L 112 H 20 126/65 94 L 03/30/19 22:09 80 03/30/19 21:52 84 03/30/19 21:00 96.9 F L 84 20 122/58 90 L 03/30/19 12:32 97.9 F 63 18 114/64 94 L Intake and Output 03/30/19 03/31/19 03/31/19 22:59 06:59 14:59 Intake Total 1040 100 30 Output Total 700 1000 Balance 1040 -600 -970 Intake: Oral 1040 100 30 Output: Urine 700 1000 Other: Voiding Method Urinal Incontinent # Voids 2 0 1 Results 03/29/19 07:55 03/31/19 07:28 Comprehensive Metabolic Panel 03/31/19 Range/Units 07:28 Sodium 136 L (137-145) mmol/L Potassium 4.8 (3.5-5.1) mmol/L Chloride 98 (98-107) mmol/L Carbon Dioxide 29 (22-30) mmol/L BUN 45 H (9-20) mg/dL Creatinine 1.77 H (0.66-1.25) mg/dL Glucose 288 H (74-99) mg/dL Calcium 9.1 (8.4-10.2) mg/dL Current Medications Generic Name Dose Route Start Last Admin Trade Name Freq PRN Reason Stop Dose Admin Acetaminophen 650 mg 03/31/19 11:02 03/31/19 11:17 Tylenol Tab PO 650 mg Q6HR PRN Administration Fever and/ or Mild Pain Hydrocodone Bitart/Acetaminophen 1 each 03/27/19 21:11 03/30/19 20:34 [place] 7.5-325 PO 1 each QID PRN Administration MODERATE Pain Albuterol Sulfate 2.5 mg 03/27/19 19:59 03/31/19 11:00 Ventolin Nebulized INHALATION 2.5 mg RT-QID PRN Administration Shortness Of Breath Atorvastatin Calcium 20 mg 03/27/19 21:00 03/30/19 20:34 Lipitor PO 20 mg HS PANCH[facility]O Administration Bisacodyl 5 mg 03/31/19 11:03 03/31/19 11:17 Dulcolax PO 5 mg DAILY PRN Administration Constipation Cholecalciferol 1,000 unit 03/28/19 09:00 03/31/19 09:05 Vitamin D3 (25 Mcg = 1000 Iu) PO 1,000 unit DAILY [facility] Administration Furosemide 40 mg 03/27/19 21:00 03/31/19 09:05 Lasix PO 40 mg BID [place] Administration Gabapentin 300 mg 03/27/19 22:00 03/31/19 09:05 Neurontin PO 300 mg TID [facility] Administration Hydromorphone HCl 2 mg 03/27/19 23:30 03/31/19 06:23 Dilaudid IVP 2 mg Q4HR PRN Administration Severe Pain Sodium Chloride 1,000 mls @ 75 mls/hr 03/31/19 11:00 Saline 0.9% IV .[id number] [facility] Insulin Aspart 0 unit 03/27/19 21:00 03/31/19 09:05 Novolog SQ Not Given ACHS [facility] Protocol Methylprednisolone Sodium Succinate 60 mg 03/31/19 12:00 03/31/19 11:17 Solu-Medrol IV 60 mg Q12HR [facility] Administration Metoprolol Tartrate 50 mg 03/28/19 09:00 03/31/19 09:05 Lopressor PO 50 mg DAILY [facility] Administration Naloxone HCl 0.2 mg 03/27/19 16:25 Narcan IV Q2M PRN Opioid Reversal Ondansetron HCl 4 mg 03/27/19 16:25 03/28/19 15:09 Zofran IVP 4 mg Q8HR PRN Administration Nausea And Vomiting Pantoprazole Sodium 40 mg 03/28/19 07:30 03/31/19 09:05 Protonix PO 40 mg [id number] [facility] Administration Repaglinide 1 mg 03/27/19 22:00 03/31/19 09:05 Prandin PO 1 mg TID [facility] Administration Intake and Output 03/30/19 03/31/19 03/31/19 22:59 06:59 14:59 Intake Total 1040 100 30 Output Total 700 1000 Balance 7883 -413 -508 Intake: Oral 1040 100 30 Output: Urine 700 1000 Other: Voiding Method Urinal Incontinent # Voids 2 0 1 03/29/19 07:55 03/31/19 07:28
[2019-03-31 12:35] LABS: Anisocytosis Slight; Basophils # (A) 0.4 k/uL (0-0.2); Basophils % (A) 3 %; Eosinophils # (A) 0.2 k/uL (0-0.7); Eosinophils % (A) 1 %; HCT 41.1 % (39.0-53.0); HGB 11.8 gm/dL (13.0-17.5); Hypochromasia Moderate; Lymphocytes # (A) 0.8 k/uL (1.0-4.8); Lymphocytes % (A) 6 %; MCH 25.9 pg (25.0-35.0); MCHC 28.7 g/dL (31.0-37.0); MCV 90.1 fL (80.0-100.0); Mean Platelet Volume 8.2; Monocytes # (A) 0.5 k/uL (0-1.0); Monocytes % (A) 4 %; Neutrophils # (A) 12.4 k/uL (1.3-7.7); Neutrophils % (A) 85 %; Platelet Count 235 k/uL (150-450); RBC 4.56 m/uL (4.30-5.90); RDW 17.6 % (11.5-15.5); WBC 14.5 k/uL (3.8-10.6)
--- NOTE | 2019-03-31 15:25 | P.CNPUL ---
History of Present Illness Consult date: 03/31/19 Requesting physician: Miguel Parra Reason for consult: dyspnea, abnormal CXR/CT Chief complaint: Intractable back pain, acute kidney injury, epistaxis History of present illness: This is a very pleasant 83-year-old gentleman who follows with Dr. Parra as his primary care physician. He has a history of gastroesophageal reflux disease, diabetes John, hypothyroidism, hyperlipidemia, coronary artery disease with previous stent placement, peripheral neuropathy. He also has a history of chronic obstructive pulmonary disease from chronic tobacco dependence. He follows with Dr. Cortés in our office. 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 A previous PET scan had not showed significant uptake in the lymph nodes however upon further review there was some questionable areas of uptake in the patient had undergone a mediastinoscopy on 03/22/[address] Finley. The notes that were biopsied were negative for metastasis. The plan is for eventual surgical intervention of the squamous cell carcinoma. The patient ended up here in the emergency room on 03/27/2019 with intractable back pain and epistaxis. His right Black was packed. 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 No evidence of acute fracture. No dislocations. MRI of the spine revealed broad-based central disc herniation and heterotrophic changes the facets and ligamentum payphone of L3-L4 results in severe canal stenosis with bilateral foraminal encroachment. No evidence of metastatic disease. He is being followed by orthopedics. The plan is for interventional pain management with epidural steroid injections for now. We are asked to see the patient today based on increasing shortness of breath. He does have a Ventimask in place with 35% FiO2 due to the nasal packing and inability to tolerated nasal cannula. He does have a temperature of 100.6 axillary. Chest x-ray showing some worsening infiltrate in the right midlung read as possible pneumonia. Current location of the squamous cell carcinoma. White count 14.5. Hemoglobin 11.8. Creatinine 1.77. He is currently on albuterol and IV Solu-Medrol. Review of Systems REVIEW OF SYSTEMS: CONSTITUTIONAL: Denies any recent significant weight loss or weight gain. EYES: Denies change in vision. EARS, NOSE, MOUTH, THROAT: Denies headaches, denies sore throat. Epistaxis. CARDIOVASCULAR: Denies chest pain, palpitations or syncopal episodes. RESPIRATORY: Positive for shortness of breath, cough, congestion no hemoptysis. GASTROINTESTINAL: Denies change in appetite, denies abdominal pain GENITOURINARY: Denies hematuria, denies infections. MUSKULOSKELETAL: Severe pain of the lower extremities. INTEGUMENTARY: Denies rash, denies eczema. NEUROLOGICAL: Denies recent memory loss, no recent seizure activity. PSYCHIATRIC: Denies anxiety, denies depression. HEMATOLOGIC/LYMPHATIC: Denies anemia, denies enlarged lymph nodes. Past Medical History Past Medical History: COPD, Diabetes Mellitus, GERD/Reflux, Hypertension, Myocardial Infarction ([place]), Renal Disease, Sleep Apnea/CPAP/BIPAP, Vascular Disorder Additional Past Medical History / Comment(s): NEUROPATHY FEET, decreased kidney function, uses CPAP Last Myocardial Infarction Date:: 2015 History of Any Multi-Drug Resistant Organisms: MRSA Date of last positivie culture/infection: 02/07/19 MDRO Source:: MRSA BRONCH Past Surgical History: Heart Catheterization, Heart Catheterization With Stent, Tonsillectomy Additional Past Surgical History / Comment(s): EGD, COLONOSCOPY, sinus surg. x3, chest/lung biopsy Past Anesthesia/Blood Transfusion Reactions: No Reported Reaction Date of Last Stent Placement:: 2015 Past Psychological History: No Psychological Hx Reported Additional Psychological History / Comment(s): Pt resides alone. He has a cane and a walker which he uses prn. He drives. He is independent. Smoking Status: Former smoker Past Alcohol Use History: None Reported Additional Past Alcohol Use History / Comment(s): QUIT SMOKING 2006, SMOKED FROM AGE 1947- 3 TO 3 AND 1/2PPD Past Drug Use History: None Reported - Past Family History Father Family Medical History: Cancer, Myocardial Infarction ([place]) Additional Family Medical History / Comment(s): Father had bone cancer. He at the age of 80yrs. Mother Family Medical History: AFIB, Myocardial Infarction ([place]) Additional Family Medical History / Comment(s): Mother when she 82 years old and of a heart attack Medications and Allergies Home Medications Medication Instructions Recorded Confirmed Type Omeprazole [PriLOSEC] 20 mg PO DAILY 06/11/14 03/27/19 History Simvastatin [Zocor] 40 mg PO HS 06/11/14 03/27/19 History Gabapentin [Neurontin] 300 mg PO TID 10/16/17 03/27/19 History Metoprolol Tartrate [Lopressor] 50 mg PO DAILY 10/16/17 03/27/19 History Aspirin [Adult Low Dose Aspirin EC] 81 mg PO DAILY 06/16/18 03/27/19 History Fexofenadine HCl [Mercedes Allergy] 180 mg PO DAILY 09/27/18 03/27/19 History Albuterol Nebulized [Ventolin 2.5 mg INHALATION RT-QID PRN 11/02/18 03/27/19 History Nebulized] Cholecalciferol [Vitamin D3 (25 1,000 unit PO DAILY 11/02/18 03/27/19 History Mcg = 1000 Iu)] INSULIN LISPRO (HumaLOG) [humaLOG] 20 units SQ AC-TID 11/03/18 03/27/19 History Furosemide [Lasix] 40 mg PO BID 03/27/19 03/27/19 History HYDROcodone/APAP 7.5-325MG [[place] 1 tab PO QID PRN 03/27/19 03/27/19 History 7.5-325] Neuro B 800mg 800 mg PO DAILY 03/27/19 03/27/19 History Repaglinide 1 mg PO TID 03/27/19 03/27/19 History Allergies Allergy/AdvReac Type Severity Reaction Status Date / Time No Known Allergies Allergy Verified 03/27/19 15:01 Physical Exam Vitals: Vital Signs Temp Pulse Pulse Resp BP Pulse Ox 03/31/19 11:23 86 03/31/19 11:13 85 03/31/19 10:54 100.6 F H 70 20 108/56 98 03/31/19 05:00 96.9 F L 112 H 20 126/65 94 L 03/30/19 22:09 80 03/30/19 21:52 84 03/30/19 21:00 96.9 F L 84 20 122/58 90 L Intake and Output 03/31/19 03/31/19 03/31/19 06:59 14:59 22:59 Intake Total 100 30 Output Total 700 1000 Balance -600 -970 Intake: Oral 100 30 Output: Urine 700 1000 Other: Voiding Method Incontinent # Voids 0 1 GENERAL EXAM: Alert, uncomfortable with low back pain, in no apparent distress. On Ventimask due to nasal packing. 35% FiO2. HEAD: Normocephalic. EYES: Normal reaction of pupils, equal size. NOSE: Nasal packing to the right Black. THROAT: No erythema or exudates. NECK: No masses, no JVD. CHEST: No chest wall deformity. LUNGS: Equal air entry with few scattered rhonchi more so on the right lung. CVS: S1 and S2 normal with no audible murmur, regular rhythm. ABDOMEN: No hepatosplenomegaly, normal bowel sounds, no guarding or rigidity. SPINE: Significant pain from severe stenosis. No scoliosis or deformity SKIN: No rashes CENTRAL NERVOUS SYSTEM: No focal deficits, tone is normal in all 4 extremities. EXTREMITIES: There is no peripheral edema. No clubbing, no cyanosis. Peripheral pulses are intact. Results - Laboratory Findings CBC and BMP: 03/31/19 07:26 03/31/19 07:28 PT/INR, D-dimer PT 10.2 sec (9.0-12.0) 03/27/19 17:54 INR 0.9 (<1.2) 03/27/19 17:54 Abnormal lab findings: Abnormal Labs 03/27/19 03/27/19 03/27/19 15:47 15:47 20:22 WBC RBC Hgb 12.0 L Hct MCHC 30.6 L RDW 17.5 H Neutrophils # Lymphocytes # Basophils # Sodium Carbon Dioxide 19 L BUN 35 H Creatinine 2.09 H Glucose 178 H POC Glucose (mg/dL) 130 H ALT Urine Protein Urine Glucose (UA) 03/28/19 03/28/19 03/28/19 07:15 11:39 12:28 WBC RBC 4.17 L Hgb 11.1 L Hct 34.7 L MCHC RDW 17.2 H Neutrophils # Lymphocytes # Basophils # Sodium Carbon Dioxide BUN Creatinine Glucose POC Glucose (mg/dL) 241 H 185 H ALT Urine Protein Urine Glucose (UA) 03/28/19 03/28/19 03/29/19 16:57 20:25 07:20 WBC RBC Hgb Hct MCHC RDW Neutrophils # Lymphocytes # Basophils # Sodium Carbon Dioxide BUN Creatinine Glucose POC Glucose (mg/dL) 240 H 258 H 258 H ALT Urine Protein Urine Glucose (UA) 03/29/19 03/29/19 03/29/19 07:55 07:55 11:48 WBC 15.5 H RBC 4.13 L Hgb 10.9 L Hct 35.9 L MCHC 30.2 L RDW 17.5 H Neutrophils # 14.2 H Lymphocytes # 0.8 L Basophils # Sodium 135 L Carbon Dioxide BUN 33 H Creatinine 1.63 H Glucose 256 H POC Glucose (mg/dL) 203 H ALT 18 L Urine Protein Urine Glucose (UA) 03/29/19 03/29/19 03/30/19 17:10 20:29 07:17 WBC RBC Hgb Hct MCHC RDW Neutrophils # Lymphocytes # Basophils # Sodium Carbon Dioxide BUN Creatinine Glucose POC Glucose (mg/dL) 218 H 200 H 185 H ALT Urine Protein Urine Glucose (UA) 03/30/19 03/30/19 03/30/19 12:11 16:40 20:12 WBC RBC Hgb Hct MCHC RDW Neutrophils # Lymphocytes # Basophils # Sodium Carbon Dioxide BUN Creatinine Glucose POC Glucose (mg/dL) 165 H 163 H 166 H ALT Urine Protein Urine Glucose (UA) 03/31/19 03/31/19 03/31/19 07:05 07:26 07:28 WBC 14.5 H RBC Hgb 11.8 L Hct MCHC 28.7 L RDW 17.6 H Neutrophils # 12.4 H Lymphocytes # 0.8 L Basophils # 0.4 H Sodium 136 L Carbon Dioxide BUN 45 H Creatinine 1.77 H Glucose 288 H POC Glucose (mg/dL) 264 H ALT Urine Protein Urine Glucose (UA) 03/31/19 03/31/19 10:00 11:15 WBC RBC Hgb Hct MCHC RDW Neutrophils # Lymphocytes # Basophils # Sodium Carbon Dioxide BUN Creatinine Glucose POC Glucose (mg/dL) 268 H ALT Urine Protein Trace H Urine Glucose (UA) 2+ H - Diagnostic Findings Chest x-ray: image reviewed Assessment and Plan Assessment: Impression: #1 Intractable lower back pain due to severe canal stenosis with bilateral foraminal encroachment of L3 and L4. #2 Epistaxis requiring packing of the right nare. #3 Dyspnea secondary to above and right lung infiltrate. 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 Recent mediastinal endoscopy with negative lymph nodes. #5 PET scan showing some uptake in mediastinal lymph nodes. #6 Diabetes mellitus. #7 Diabetic neuropathy. #8 Gastric esophageal reflux disease. #9 History of coronary disease with previous stent placement. #10 Hypothyroidism. #11 Hyperlipidemia. Plan: The patient was seen and evaluated by Dr. Cortés. His chest x-ray and labs were reviewed. Continue with Ventimask for now as the patient has packing to the right nare. Some of the x-ray changes are from his known history of squamous cell carcinoma of the right lung. Recent mediastinoscopy had negative nodes. PET scan that showed some questionable uptake. Once the patient is fully recovered from his severe back pain with plans for interventional and epidural injections he will follow up with Dr. Cortés in our office. He will plan for to repeat the PET scan prior to going to surgery for the right lung squamous cell carcinoma by Dr. Finley. The patient and his are agreeable to the plan. In the interim, we'll continue with bronchodilators and IV Solu-Medrol. Orthopedics is on the case. We'll continue to follow and make further recommendations based on his clinical status. I, the cosigning physician, performed a history & physical examination on the patient. Lungs sounds with few scattered rhonchi more so on the right lung. Maintaining good O2 saturations in the 90s on 35% FiO2 via Ventimask. I discussed the assessment and plan of care with my nurse practitioner, Yesica Vanegas. I attest to the above consultation as dictated by her. Time with Patient: Greater than 30
[2019-03-31] MEDS: HYDROcodone/APAP 7.5-325MG 1 EACH TAB PO PRN (16:52)
--- NOTE | 2019-03-31 17:00 | PN ---
PROGRESS NOTE This is an 83-year-old white male with severe right hip pain, saw on the MRI to have L3- L4 severe disc herniation. Neurosurgery was consulted as well as epidural anesthesia for an injection. CARDIOVASCULAR: S1, S2. LUNGS: Clear. GI: Soft. MUSCULOSKELETAL: Right leg, positive straight leg raising test. ASSESSMENT: 1. Acute kidney injury. 2. Chronic obstructive pulmonary disease. 3. Congestive heart failure. 4. Mild dehydration. 5. More confusion today. 6. Hip bursitis. 7. Lumbar radiculopathy. Increase normal saline to 75 an hour due to dehydration. Cardiology, Pulmonary consult. Await Neurosurgery and Anesthesia for epidural shot. MMODL / IJN: [id number] /
--- NOTE | 2019-03-31 17:22 | P.PAINCN ---
History of Present Illness - Reason for Consult Consult date: 03/31/19 leg pain Requesting physician: Eev Jensen - Chief Complaint Right leg pain - History of Present Illness Mr. Grace is an 83-year-old gentleman who is admitted to [facility]. We will consult them today to evaluate for lumbar epidural steroid injection. Mr. Grace reports he has significant amount of pain in his right leg and right hip, he denies any back pain. He reports pain associated with burning 10 out of 10 pain when down his right hip to about the knee. He denies any pain below the knee. Denies any numbness or tingling below the knee. He denies having any significant bowel or bladder incontinence. He has multiple comorbidities. MRI of the hip was done which revealed no fracture or significant deterioration. MRI of the lumbar spine shows multilevel degenerative changes with no significant disc bulge at the L3-L4 level. He is not currently on any blood thinning medications. Patient reports he wants to have something done about his pain before he goes home. He reports if he goes home he would not be able to tolerate the pain and would not come back to the hospital. He reports the pain is causing him significant long discomfort enough that he would not want to live any more. Patient denies any significant bowel or bladder incontinence, denies any left leg pain. Denies any back pain. Denies any chest discomfort. Review of Systems Negative except per HPI Past Medical History Past Medical History: COPD, Diabetes Mellitus, GERD/Reflux, Hypertension, Maverick cardial Infarction ([place]), Renal Disease, Sleep Apnea/CPAP/BIPAP, Vascular Disorder Additional Past Medical History / Comment(s): NEUROPATHY FEET, decreased kidney function, uses CPAP Last Myocardial Infarction Date:: 2015 History of Any Multi-Drug Resistant Organisms: MRSA Year Discovered:: 02/07/19 MDRO Source:: MRSA BRONCH Past Surgical History: Heart Catheterization, Heart Catheterization With Stent, Tonsillectomy Additional Past Surgical History / Comment(s): EGD, COLONOSCOPY, sinus surg. x3, chest/lung biopsy Past Anesthesia/Blood Transfusion Reactions: No Reported Reaction Date of Last Stent Placement:: 2015 Past Psychological History: No Psychological Hx Reported Additional Psychological History / Comment(s): Pt resides alone. He has a cane and a walker which he uses prn. He drives. He is independent. Smoking Status: Former smoker Past Alcohol Use History: None Reported Additional Past Alcohol Use History / Comment(s): QUIT SMOKING 2006, SMOKED FROM AGE 1947- 3 TO 3 AND 1/2PPD Past Drug Use History: None Reported - Past Family History Father Family Medical History: Cancer, Myocardial Infarction ([place]) Additional Family Medical History / Comment(s): Father had bone cancer. He at the age of 80yrs. Mother Family Medical History: AFIB, Myocardial Infarction ([place]) Additional Family Medical History / Comment(s): Mother when she 82 years old and of a heart attack Medications and Allergies Home Medications Medication Instructions Recorded Confirmed Type Omeprazole [PriLOSEC] 20 mg PO DAILY 06/11/14 03/27/19 History Simvastatin [Zocor] 40 mg PO HS 06/11/14 03/27/19 History Gabapentin [Neurontin] 300 mg PO TID 10/16/17 03/27/19 History Metoprolol Tartrate [Lopressor] 50 mg PO DAILY 10/16/17 03/27/19 History Aspirin [Adult Low Dose Aspirin EC] 81 mg PO DAILY 06/16/18 03/27/19 History Fexofenadine HCl [Mercedes Allergy] 180 mg PO DAILY 09/27/18 03/27/19 History Albuterol Nebulized [Ventolin 2.5 mg INHALATION RT-QID PRN 11/02/18 03/27/19 History Nebulized] Cholecalciferol [Vitamin D3 (25 1,000 unit PO DAILY 11/02/18 03/27/19 History Mcg = 1000 Iu)] INSULIN LISPRO (HumaLOG) [humaLOG] 20 units SQ AC-TID 11/03/18 03/27/19 History Furosemide [Lasix] 40 mg PO BID 03/27/19 03/27/19 History HYDROcodone/APAP 7.5-325MG [[place] 1 tab PO QID PRN 03/27/19 03/27/19 History 7.5-325] Neuro B 800mg 800 mg PO DAILY 03/27/19 03/27/19 History Repaglinide 1 mg PO TID 03/27/19 03/27/19 History Allergies Allergy/AdvReac Type Severity Reaction Status Date / Time No Known Allergies Allergy Verified 03/27/19 15:01 Physical Exam Vitals: Vital Signs Temp Pulse Pulse Resp BP Pulse Ox 03/31/19 15:24 99.9 F H 70 20 120/57 95 03/31/19 11:23 86 03/31/19 11:13 85 03/31/19 10:54 100.6 F H 70 20 108/56 98 03/31/19 05:00 96.9 F L 112 H 20 126/65 94 L 03/30/19 22:09 80 03/30/19 21:52 84 03/30/19 21:00 96.9 F L 84 20 122/58 90 L Intake and Output 03/31/19 03/31/19 03/31/19 06:59 14:59 22:59 Intake Total 100 30 Output Total 700 1000 Balance -600 -970 Intake: Oral 100 30 Output: Urine 700 1000 Other: Voiding Method Incontinent # Voids 0 1 General: Awake and alert oriented 3, mild distress, frail Respiratory exam: No audible wheezing no accessory muscle usage, on oxygen Cardiovascular exam: regular rate, palpable bilateral pulses, no lower extremity edema Abdominal exam: No distention nontender to palpation, obese Cervical spine: Normal alignment, Spurling's negative, facet loading negative, Spinner Concrete Pipe strength is 5/5, yin negative Lumbar spine: Pain prohibits a full lumbar spine exam. He is nontender to pal pation over the lumbar spine. He has significant pain with any movement which causes pain down the right leg. Straight leg raise is significantly positive on the right with minimal movement. There is pain with manipulation of the right hip. Sacroiliac joints: Unable to test Neuro exam: Normal sensation in bilateral upper extremities, deep tendon reflexes are 2+ bilateral upper extremities. Normal sensation in bilateral lower extremities. Deep tendon reflexes are 1+ in the left lower extremity, absent right patellar reflex. Absent right Achilles reflex Psych exam: Cooperative, appropriate mood Results CBC & Chem 7: 03/31/19 07:26 03/31/19 07:28 Labs: Abnormal Lab Results - Last 24 Hours (Table) 03/30/19 03/31/19 03/31/19 Range/Units 20:12 07:05 07:26 WBC 14.5 H (3.8-10.6) k/uL Hgb 11.8 L (13.0-17.5) gm/dL MCHC 28.7 L (31.0-37.0) g/dL RDW 17.6 H (11.5-15.5) % Neutrophils # 12.4 H (1.3-7.7) k/uL Lymphocytes # 0.8 L (1.0-4.8) k/uL Basophils # 0.4 H (0-0.2) k/uL D-Dimer (<0.60) mg/L FEU Sodium (137-145) mmol/L BUN (9-20) mg/dL Creatinine (0.66-1.25) mg/dL Glucose (74-99) mg/dL POC Glucose (mg/dL) 166 H 264 H (75-99) mg/dL Urine Protein (Negative) Urine Glucose (UA) (Negative) 03/31/19 03/31/19 03/31/19 Range/Units 07:28 10:00 11:15 WBC (3.8-10.6) k/uL Hgb (13.0-17.5) gm/dL MCHC (31.0-37.0) g/dL RDW (11.5-15.5) % Neutrophils # (1.3-7.7) k/uL Lymphocytes # (1.0-4.8) k/uL Basophils # (0-0.2) k/uL D-Dimer (<0.60) mg/L FEU Sodium 136 L (137-145) mmol/L BUN 45 H (9-20) mg/dL Creatinine 1.77 H (0.66-1.25) mg/dL Glucose 288 H (74-99) mg/dL POC Glucose (mg/dL) 268 H (75-99) mg/dL Urine Protein Trace H (Negative) Urine Glucose (UA) 2+ H (Negative) 03/31/19 Range/Units 13:54 WBC (3.8-10.6) k/uL Hgb (13.0-17.5) gm/dL MCHC (31.0-37.0) g/dL RDW (11.5-15.5) % Neutrophils # (1.3-7.7) k/uL Lymphocytes # (1.0-4.8) k/uL Basophils # (0-0.2) k/uL D-Dimer 1.11 H (<0.60) mg/L FEU Sodium (137-145) mmol/L BUN (9-20) mg/dL Creatinine (0.66-1.25) mg/dL Glucose (74-99) mg/dL POC Glucose (mg/dL) (75-99) mg/dL Urine Protein (Negative) Urine Glucose (UA) (Negative) Assessment and Plan Assessment: #1 lumbar spinal stenosis #2 lumbar radiculitis #3 chronic pain syndrome Plan: I believe the patient would benefit from a lumbar epidural steroid injections at the L3-L4 level. I'm not sure how much this can help him. He has significant spinal stenosis secondary to a large disc bulge with a likely extrusion of the disc material. We will be able to perform the injection on Tuesday if he still in the hospital. At this time I will review benefit from being on oral prednisone in the meantime. Would also like to have him on [place] 10 mg every 4 hours as needed. I will make this changes in the medical record. Please contact anesthesia if you have any questions or concerns. PQRS Measure Charge Sheet PQRS Narrative: Smoking Status Former smoker Do You Want the Pneumonia Vaccine Up to Date Vaccine AT THIS TIME? Blood Pressure [Left Arm] 120/57 Blood Pressure 131/73 Pain Intensity [None] 0 Pain Intensity [Right Hip] 10 Pain Intensity 10 Pain Scale Used Numeric (1 - 10) Scale Used Numeric (1 - 10) Home Medications: Ambulatory Orders Omeprazole [PriLOSEC] 20 mg PO DAILY 06/11/14 Simvastatin [Zocor] 40 mg PO HS 06/11/14 Gabapentin [Neurontin] 300 mg PO TID 10/16/17 Metoprolol Tartrate [Lopressor] 50 mg PO DAILY 10/16/17 Aspirin [Adult Low Dose Aspirin EC] 81 mg PO DAILY 06/16/18 Fexofenadine HCl [Mercedes Allergy] 180 mg PO DAILY 09/27/18 Albuterol Nebulized [Ventolin Nebulized] 2.5 mg INHALATION RT-QID PRN 11/02/18 Cholecalciferol [Vitamin D3 (25 Mcg = 1000 Iu)] 1,000 unit PO DAILY 11/02/18 INSULIN LISPRO (HumaLOG) [humaLOG] 20 units SQ AC-TID 11/03/18 Furosemide [Lasix] 40 mg PO BID 03/27/19 HYDROcodone/APAP 7.5-325MG [[place] 7.5-325] 1 tab PO QID PRN 03/27/19 Neuro B 800mg 800 mg PO DAILY 03/27/19 Repaglinide 1 mg PO TID 03/27/19
[2019-03-31 17:36] LABS: Glucose,Whole Blood 326 mg/dL (75-99)
[2019-03-31] MEDS: oxyCODONE-APAP 10-325MG 1 EACH TAB PO PRN ×2 (18:11→23:26)
[2019-03-31 20:20] LABS: Glucose,Whole Blood 353 mg/dL (75-99)
[2019-03-31] MEDS: ATORVASTATIN 20 MG TAB PO SCH (20:54)
[2019-04-01] MEDS: SODIUM CHLORIDE 0.9% 1,000 ML IV SCH ×2 (00:28→11:59)
[2019-04-01] MEDS: HYDROmorphone 2 MG/ML 1 ML SYRINGE IVP PRN ×4 (05:09→21:29)
[2019-04-01] MEDS: PANTOPRAZOLE 40 MG TABLET PO SCH (05:09)
[2019-04-01 05:57] LABS: Glucose,Whole Blood 277 mg/dL (75-99)
[2019-04-01] MEDS: INSULIN ASPART (NovoLOG) 100 UNIT/ML VIAL SQ SCH ×4 (06:10→21:52)
[2019-04-01] MEDS: METOPROLOL TARTRATE 50 MG TAB PO SCH (08:09)
[2019-04-01] MEDS: REPAGLINIDE 1 MG TAB PO SCH ×3 (08:09→17:25)
[2019-04-01] MEDS: methylPREDNISolone SOD SUCCI 125 MG/2 ML VIAL IV SCH ×2 (08:09→21:44)
[2019-04-01] MEDS: GABAPENTIN 300 MG CAP PO SCH ×4 (08:09→21:45)
[2019-04-01] MEDS: FUROSEMIDE 40 MG TAB PO SCH ×2 (08:09→21:45)
[2019-04-01] MEDS: CHOLECALCIFEROL 1,000 UNIT TAB PO SCH (08:09)
[2019-04-01] MEDS: oxyCODONE-APAP 10-325MG 1 EACH TAB PO PRN ×2 (08:10→21:30)
[2019-04-01] MEDS: BISACODYL 5 MG TABLET.DR PO PRN (08:10)
[2019-04-01] MEDS ORDERED: MORPHINE SULFATE 4 MG/ML SYRINGE IVP PRN (09:27)
--- NOTE | 2019-04-01 09:39 | P.PN ---
Subjective This is a pleasant 83-year-old male past medical history significant for lung cancer, coronary artery disease status post angioplasty of the LAD and circumflex July 2017, COPD, diabetes mellitus, hypertension, chronic diastolic heart failure, peripheral vascular disease and former nicotine dependence. We have been asked to see him in consultation secondary to shortness of breath. He follows in the office with Dr. Zamudio. He recently saw him in the office in February secondary to presurgical evaluation prior to scheduled for lobectomy. At that time he underwent echocardiography and stress testing. Lexiscan stress test was negative for reversibility. Echocardiogram showed normal LV function. His scheduled lobectomy was canceled secondary to significant discomfort in the hip and further workup required. He is seen and examined sitting up in bed with a nonrebreather mask on. He has become quite short of breath and is currently in the process of being transferred to the selective care unit. He denies chest discomfort, palpitations, nausea, vomiting or diaphoresis. We have requested a baseline EKG as he has not had one yet this admission. Chest x-ray obtained reveals cardiomegaly with a worsening infiltrate in the right mid lung likely representing pneumonia. Laboratory data reviewed, sodium 136, potassium 4.8, creatinine 1.77, WBC 15.5, hemoglobin 10.9, platelets 235. Current daily cardiac medications include aspirin 81 mg daily, Lasix 40 mg twice a day, Lopressor 50 mg daily and simvastatin 40 mg daily. 04/01/2019 Pt is seen and examined sleeping comfortably in bed. He states his breathing has improved since yesterday. No chest pain, dizziness or palpitations. Blood pressure 143/70 heart rate 71 afebrile maintaining oxygen saturation on Ventimask. D-dimer is 1.11. GENERAL: This is a 83-year-old male in no apparent distress at the time of my examination. HEENT: Head is atraumatic, normocephalic. Pupils are equal, round. Sclerae anicteric. Conjunctivae are clear. Mucous membranes of the mouth are moist. Neck is supple. There is no jugular venous distention. No carotid bruit is heard. LUNGS: Scattered rhonchi, no rales or wheezes. No chest wall tenderness is noted on palpation or with deep breathing. HEART: Regular rate and rhythm without murmurs, rubs or gallops. S1 and S2 heard. EXTREMITIES: No evidence of peripheral edema and no calf tenderness noted. ASSESSMENT Shortness of breath likely related to underlying pneumonia Febrile illness History of lung cancer Coronary artery disease status post angioplasty in 2018 Diabetes mellitus Hypertension Chronic diastolic heart failure, currently euvolemic PLAN Ongoing medical management and evaluation per the primary and pulmonary care teams. Consider CTA to rule out pulmonary embolism. We will continue to follow as needed, please feel free to call with further questions or concerns. Patient may be transferred to medical surgical unit. Nurse Practitioner note has been reviewed, I agree with a documented findings and plan of care. Patient was seen and examined. Objective - Vital Signs Vital signs: Vital Signs Temp 98.9 F 04/01/19 03:04 Pulse 78 04/01/19 03:04 Resp 20 04/01/19 03:04 BP 138/72 04/01/19 03:04 Pulse Ox 96 04/01/19 03:04 Intake & Output 03/31/19 04/01/19 04/01/19 18:59 06:59 18:59 Intake Total 30 800 Output Total 1300 950 Balance -1270 -150 Weight 113 kg Intake: IV 800 Sodium Chloride 0.9% 1, 800 000 ml @ 100 mls/hr IV . Q10H [facility] Rx#:[id number] Oral 30 Output: Urine 1300 950 Other: Voiding Method Incontinent Incontinent # Voids 1 - Labs CBC & Chem 7: 03/31/19 07:26 03/31/19 07:28 Labs: Abnormal Lab Results - Last 24 Hours (Table) 03/31/19 03/31/19 03/31/19 Range/Units 07:26 07:28 10:00 WBC 14.5 H (3.8-10.6) k/uL Hgb 11.8 L (13.0-17.5) gm/dL MCHC 28.7 L (31.0-37.0) g/dL RDW 17.6 H (11.5-15.5) % Neutrophils # 12.4 H (1.3-7.7) k/uL Lymphocytes # 0.8 L (1.0-4.8) k/uL Basophils # 0.4 H (0-0.2) k/uL D-Dimer (<0.60) mg/L FEU Sodium 136 L (137-145) mmol/L BUN 45 H (9-20) mg/dL Creatinine 1.77 H (0.66-1.25) mg/dL Glucose 288 H (74-99) mg/dL POC Glucose (mg/dL) (75-99) mg/dL Urine Protein Trace H (Negative) Urine Glucose (UA) 2+ H (Negative) 03/31/19 03/31/19 03/31/19 Range/Units 11:15 13:54 17:34 WBC (3.8-10.6) k/uL Hgb (13.0-17.5) gm/dL MCHC (31.0-37.0) g/dL RDW (11.5-15.5) % Neutrophils # (1.3-7.7) k/uL Lymphocytes # (1.0-4.8) k/uL Basophils # (0-0.2) k/uL D-Dimer 1.11 H (<0.60) mg/L FEU Sodium (137-145) mmol/L BUN (9-20) mg/dL Creatinine (0.66-1.25) mg/dL Glucose (74-99) mg/dL POC Glucose (mg/dL) 268 H 326 H (75-99) mg/dL Urine Protein (Negative) Urine Glucose (UA) (Negative) 03/31/19 04/01/19 Range/Units 20:08 05:51 WBC (3.8-10.6) k/uL Hgb (13.0-17.5) gm/dL MCHC (31.0-37.0) g/dL RDW (11.5-15.5) % Neutrophils # (1.3-7.7) k/uL Lymphocytes # (1.0-4.8) k/uL Basophils # (0-0.2) k/uL D-Dimer (<0.60) mg/L FEU Sodium (137-145) mmol/L BUN (9-20) mg/dL Creatinine (0.66-1.25) mg/dL Glucose (74-99) mg/dL POC Glucose (mg/dL) 353 H 277 H (75-99) mg/dL Urine Protein (Negative) Urine Glucose (UA) (Negative)
--- NOTE | 2019-04-01 09:52 | PN ---
PROGRESS NOTE 83-year-old white male with mild ( ). He had right-sided pneumonia at which time IV antibiotics were started by women's soccer coach. Cardiology has cleared the patient from their standpoint. He is going to get an epidural shot tomorrow. Remains on IV steroids. He is going to get an epidural shot in his lumbar spine for significant L3- L4 radiculopathy and stenosis, irretractable pain. Then he follow up with pulmonary issues and possibly a lobectomy. Sugars are high in the 200-300s due to steroids. CARDIOVASCULAR: S1, S2. LUNGS: Right middle lobe rhonchi and wheeze. ENDOCRINE: BMI is over 40. HEMATOLOGY 2 to 3+ edema. Continue current treatment as mentioned above. Wait for Pulmonary recommendations and epidural injection, PT/OT. MMSAMUELL / KAYLEYN: [id number] /
[2019-04-01 10:09] LABS: Anisocytosis Slight; Basophils % (A) 0 %; Eosinophils % (A) 0 %; HGB 12.2 gm/dL (13.0-17.5); Hypochromasia Marked; Lymphocytes # (A) 0.7 k/uL (1.0-4.8); Lymphocytes % (A) 5 %; MCH 27.1 pg (25.0-35.0); MCHC 29.7 g/dL (31.0-37.0); MCV 91.5 fL (80.0-100.0); Mean Platelet Volume 7.7; Monocytes # (A) 0.3 k/uL (0-1.0); Monocytes % (A) 2 %; Neutrophils # (A) 12.9 k/uL (1.3-7.7); Neutrophils % (A) 93 %; Platelet Count 223 k/uL (150-450); RBC 4.48 m/uL (4.30-5.90); RDW 17.5 % (11.5-15.5)
[2019-04-01 10:10] LABS: Calcium 9.1 mg/dL (8.4-10.2); Potassium 4.4 mmol/L (3.5-5.1)
[2019-04-01] MEDS: DIAZEPAM 5 MG TAB PO SCH ×2 (10:16→16:01)
[2019-04-01 11:52] LABS: Glucose,Whole Blood 269 mg/dL (75-99)
--- NOTE | 2019-04-01 14:09 | P.PN ---
Subjective Progress Note Date: 04/01/19 Principal diagnosis: Intractable back pain secondary to lumbar stenosis and epistaxis. This is a very pleasant 83-year-old gentleman who follows with Dr. Parra as his primary care physician. He has a history of gastroesophageal reflux disease, diabetes John, hypothyroidism, hyperlipidemia, coronary artery disease with previous stent placement, peripheral neuropathy. He also has a history of chronic obstructive pulmonary disease from chronic tobacco dependence. He foll ows with Dr. Cortés in our office. 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 A previous PET scan had not showed significant uptake in the lymph nodes however upon further review there was some questionable areas of uptake in the patient had undergone a mediastinoscopy on 03/22/[address] Finley. The notes that were biopsied were negative for metastasis. The plan is for eventual surgical intervention of the squamous cell carcinoma. The patient ended up here in the emergency room on 03/27/2019 with intractable back pain and epistaxis. His right Black was packed. 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 No evidence of acute fracture. No dislocations. MRI of the spine revealed broad- based central disc herniation and heterotrophic changes the facets and ligamentum payphone of L3-L4 results in severe canal stenosis with bilateral foraminal encroachment. No evidence of metastatic disease. He is being followed by orthopedics. The plan is for interventional pain management with epidural steroid injections for now. We are asked to see the patient today based on increasing shortness of breath. He does have a Ventimask in place with 35% FiO2 due to the nasal packing and inability to tolerated nasal cannula. He does have a temperature of 100.6 axillary. Chest x-ray showing some worsening infiltrate in the right midlung read as possible pneumonia. Current location of the squamous cell carcinoma. White count 14.5. Hemoglobin 11.8. Creatinine 1.77. He is currently on albuterol and IV Solu-Medrol. Reevaluated today on 04/01/2019, continues to have some back pain, he will be seen by the pain specialist in the morning for possible epidural injections, continues to have nasal packings done bilaterally. These would be addressed by ENT. Overall the patient is better, pain seems to be better controlled. Labs showed that it is not a 14 hemoglobin of 12 basic metabolic profile is normal renal profile is abnormal with creatinine of 1.42. Blood sugar is high needs to be better controlled by the admitting physician. Objective - Vital Signs Vital signs: Vital Signs Temp 97.5 F L 04/01/19 11:21 Pulse 65 04/01/19 11:21 Resp 20 04/01/19 11:21 BP 120/72 04/01/19 11:21 Pulse Ox 93 L 04/01/19 11:21 Intake & Output 03/31/19 04/01/19 04/01/19 18:59 06:59 18:59 Intake Total 30 800 600 Output Total 1300 950 Balance -1270 -150 600 Weight 113 kg Intake: IV 800 Sodium Chloride 0.9% 1, 800 000 ml @ 100 mls/hr IV . Q10H [facility] Rx#:[id number] Intake, IV Titration 600 Amount Sodium Chloride 0.9% 1, 600 000 ml @ 75 mls/hr IV . [id number] [facility] Rx#:[id number] Oral 30 Output: Urine 1300 950 Other: Voiding Method Incontinent Incontinent Indwelling Catheter # Voids 1 - Exam Physical Exam: Revealed 83-year-old white male in no distress, has a 55% Ventimask in place, Head: Atraumatic normocephalic. HEENT:[Neck is supple.] [No neck masses.] [No thyromegaly.] [No JVD.] Both nasal packings were noted. Chest: [Minimal fine crackles at the bases no rhonchi and no wheezes.] Cardiac Exam: [Normal S1 and S2, no S3 gallop, no murmur.] Abdomen: [Soft, nontender, no megaly, no rebound, no guarding, normal bowel sounds.] Extremities: [No clubbing, no edema, no cyanosis.] Neurological Exam: [No focal neurologic deficit.] Alert and oriented 3. Psychiatric: Normal mood affect and normal mental status examination. Skin: No rashes - Labs CBC & Chem 7: 04/01/19 09:35 04/01/19 09:35 Labs: Abnormal Lab Results - Last 24 Hours (Table) 03/31/19 03/31/19 03/31/19 Range/Units 13:54 17:34 20:08 WBC (3.8-10.6) k/uL Hgb (13.0-17.5) gm/dL MCHC (31.0-37.0) g/dL RDW (11.5-15.5) % Neutrophils # (1.3-7.7) k/uL Lymphocytes # (1.0-4.8) k/uL D-Dimer 1.11 H (<0.60) mg/L FEU BUN (9-20) mg/dL Creatinine (0.66-1.25) mg/dL Glucose (74-99) mg/dL POC Glucose (mg/dL) 326 H 353 H (75-99) mg/dL 04/01/19 04/01/19 04/01/19 Range/Units 05:51 09:35 09:35 WBC 14.0 H (3.8-10.6) k/uL Hgb 12.2 L (13.0-17.5) gm/dL MCHC 29.7 L (31.0-37.0) g/dL RDW 17.5 H (11.5-15.5) % Neutrophils # 12.9 H (1.3-7.7) k/uL Lymphocytes # 0.7 L (1.0-4.8) k/uL D-Dimer (<0.60) mg/L FEU BUN 46 H (9-20) mg/dL Creatinine 1.42 H (0.66-1.25) mg/dL Glucose 319 H (74-99) mg/dL POC Glucose (mg/dL) 277 H (75-99) mg/dL 04/01/19 Range/Units 11:49 WBC (3.8-10.6) k/uL Hgb (13.0-17.5) gm/dL MCHC (31.0-37.0) g/dL RDW (11.5-15.5) % Neutrophils # (1.3-7.7) k/uL Lymphocytes # (1.0-4.8) k/uL D-Dimer (<0.60) mg/L FEU BUN (9-20) mg/dL Creatinine (0.66-1.25) mg/dL Glucose (74-99) mg/dL POC Glucose (mg/dL) 269 H (75-99) mg/dL Assessment and Plan Assessment: #1 Intractable lower back pain due to severe canal stenosis with bilateral foraminal encroachment of L3 and L4. #2 Epistaxis requiring packing of the right nare. #3 Dyspnea secondary to above and right lung infiltrate. 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 Recent mediastinal endoscopy with negative lymph nodes. #5 PET scan showing some uptake in mediastinal lymph nodes. #6 Diabetes mellitus. #7 Diabetic neuropathy. #8 Gastric esophageal reflux disease. #9 History of coronary disease with previous stent placement. #10 Hypothyroidism. #11 Hyperlipidemia. Recommendation: Agree with the present treatment plan, continue nasal packing, patient to be seen by the pain specialist in the morning, may benefit from epidural injections, will recommend outpatient PET scan, and outpatient follow- up with me and with Dr. Finley once the patient is discharged. Time with Patient: Less than 30
[2019-04-01] MEDS ORDERED: DIAZEPAM 5 MG TAB PO PRN (16:00)
[2019-04-01 16:40] LABS: Glucose,Whole Blood 313 mg/dL (75-99)
[2019-04-01 20:16] LABS: Glucose,Whole Blood 343 mg/dL (75-99)
--- NOTE | 2019-04-01 20:40 | PN ---
PROGRESS NOTE White male who is being treated for right lower lobe pneumonia, severe lumbar disk herniation with left leg inability to move due to severe intractable pain. He is scheduled for an epidural tomorrow morning. We will try a dose of morphine. If that works, we will take him off his Dilaudid. If it does not work we will continue him on his Dilaudid. We will add Valium 5 mg q.8 hours, which has helped his pain in the past and maybe increase Neurontin from 300 up to 600 q.i.d. for radicular pain. The patient's breathing is stable on a non-rebreather. Pulmonary is seeing him, treating him for pneumonia. Cardiology has cleared him from a cardiac standpoint. LUNGS: Transmitted upper airway sounds. Scattered wheeze. HEMATOLOGY: Negative Homans. PSYCH: Fair mood and affect. NEUROLOGIC: Alert and orient x3. MUSCULOSKELETAL: Right leg inability to move due to severe right hip pain. ASSESSMENT: 1. Acute kidney injury. 2. Lumbar disk herniation. 3. Severe intractable pain. 4. Epistaxis with nasal syringe. 5. Chronic obstructive pulmonary disease. 6. Congestive heart failure. Continue current treatment. Follow up in the next 24-48 hours. MMODL / IJN: [id number] /
[2019-04-01] MEDS: ATORVASTATIN 20 MG TAB PO SCH (21:44)
[2019-04-02] MEDS: SODIUM CHLORIDE 0.9% 1,000 ML IV SCH (00:48)
[2019-04-02] MEDS: HYDROmorphone 2 MG/ML 1 ML SYRINGE IVP PRN ×3 (04:15→16:17)
[2019-04-02] MEDS: oxyCODONE-APAP 10-325MG 1 EACH TAB PO PRN ×3 (04:18→17:25)
[2019-04-02 06:20] LABS: Anisocytosis Slight; Basophils % (A) 0 %; Eosinophils # (A) 0.1 k/uL (0-0.7); Eosinophils % (A) 0 %; HCT 42.3 % (39.0-53.0); HGB 12.4 gm/dL (13.0-17.5); Hypochromasia Moderate; Lymphocytes # (A) 0.8 k/uL (1.0-4.8); Lymphocytes % (A) 4 %; MCH 26.4 pg (25.0-35.0); MCHC 29.2 g/dL (31.0-37.0); MCV 90.4 fL (80.0-100.0); Mean Platelet Volume 7.8; Monocytes # (A) 0.3 k/uL (0-1.0); Monocytes % (A) 2 %; Neutrophils # (A) 19.7 k/uL (1.3-7.7); Neutrophils % (A) 94 %; Platelet Count 254 k/uL (150-450); RBC 4.68 m/uL (4.30-5.90); RDW 17.6 % (11.5-15.5); WBC 20.9 k/uL (3.8-10.6)
[2019-04-02 06:30] LABS: Glucose,Whole Blood 296 mg/dL (75-99)
[2019-04-02 06:47] LABS: Albumin 3.9 g/dL (3.5-5.0); Calcium 9.4 mg/dL (8.4-10.2); Potassium 4.5 mmol/L (3.5-5.1); Total Bilirubin 0.6 mg/dL (0.2-1.3); Total Protein 7.6 g/dL (6.3-8.2)
[2019-04-02] MEDS: REPAGLINIDE 1 MG TAB PO SCH ×3 (06:51→17:28)
[2019-04-02] MEDS: INSULIN ASPART (NovoLOG) 100 UNIT/ML VIAL SQ SCH ×5 (06:51→21:15)
[2019-04-02] MEDS: PANTOPRAZOLE 40 MG TABLET PO SCH (06:51)
[2019-04-02 09:11] LABS: Glucose,Whole Blood 307 mg/dL (75-99)
[2019-04-02] MEDS ORDERED: IV FLUID CONTINUATION 500 ML IV ONE (09:13)
--- NOTE | 2019-04-02 09:47 | P.PCN ---
Date of Procedure: 04/02/19 Surgeon: Charito Spears Pathology: none sent Condition: stable Disposition: PACU Description of Procedure: PREOPERATIVE DIAGNOSIS: 1-Lumbar radiculopathy 2- Lumber Degenerative Disc Diseases. POSTOPERATIVE DIAGNOSIS: 1-Lumbar radiculopathy. 2-Lumbar Degenerative Disc Diseases PROCEDURE 1. Lumbar epidural steroid injection under fluoroscopic guidance at the L3-4 level in the right paramedian approach. 2. Lumbar epidurogram. ANESTHESIA: Local with 1% lidocaine; and IV moderate conscious sedation with Versed and fentanyl EBL: Minimal PROCEDURE INDICATION: The patient with low back pain and radiculitis symptoms unresponsive to conservative treatment. Fluoroscopy was used to optimize visualization of the needle placement and to maximize safety. PROCEDURE DESCRIPTION / TECHNIQUE: The patient was seen and identified in the preoperative area. Risks, benefits, complications including but not limited to infections ,bleeding ,allergic reaction to the medications ,nerve damage and not complete pain relief , and alternatives were discussed with the patient. The patient agreed to proceed with the procedure and signed the consent. IV was started, and vital signs were stable. Due to the patient's poorly controlled diabetes and planning to use only 40 mg of Kenalog for this procedure. Patient was taken to the OR and time out was completed. The patient was placed in the prone position on procedure table and a pillow was placed under the abdomen to reduce lumbar lordosis. The lumbosacral area was prepped and draped in the usual sterile fashion with ChloraPrep.Patient was closely monitored during the procedure. Conscious sedation was used during the procedure to decrease patients anxiety. Vital signs were monitered during the entire procedure. Using anterior-posterior fluoroscopy, the L3-4 interlaminar space was identified and the skin over this site was marked and then infiltrated with 1% lidocaine subcutaneously. Subsequently, a 20-gauge Tuohy epidural needle was inserted and advanced toward the epidural space in the right paramedian approach using the Loss of resistance to air technique and guided by AP and lateral fluoroscopy. The correct needle position in the epidural space was verified with the injection of 1 mL of the water soluble contrast dye Omnipaque 180 contrast and observing an excellent epidurogram with the epidural spread of the dye, after negative aspiration for blood and CSF and in the absence of paresthesias. Again after negative aspiration, a 6 ml mixture containing 40 mg of Kenalog and 3 ml of preservative free Normal Saline, and 2 ml of preservative free ropivacaine 0.5% solution was injected and a washout of epidurogram was seen. Needle was withdrawn intact, skin was cleansed, and bandages were applied. patient tolerated procedure well and was transferred to PACU in stable condition. COMPLICATIONS: None DISPOSITION / PLANS: The patient was placed in a supine position and transferred to the recovery area in a stable condition for observation. There was no evidence of lower extremity motor or sensory deficit after the procedure. Patient was discharged from the recovery room after meeting discharge criteria. Home discharge instructions were given to the patient by the staff. The patient was reexamined prior to discharge. The patient will schedule a follow up in the clinic in 2-4 weeks.
[2019-04-02] MEDS: CHOLECALCIFEROL 1,000 UNIT TAB PO SCH (10:48)
[2019-04-02] MEDS: FUROSEMIDE 40 MG TAB PO SCH ×2 (10:48→21:15)
[2019-04-02] MEDS: GABAPENTIN 300 MG CAP PO SCH ×4 (10:48→21:16)
[2019-04-02] MEDS: BISACODYL 5 MG TABLET.DR PO PRN (10:53)
--- NOTE | 2019-04-02 11:11 | FL ---
EXAMINATION TYPE: FL guided pain mgmt statistic DATE OF EXAM: 04/02/2019 COMPARISON: NONE HISTORY: Back pain TECHNIQUE: Fluoroscopy. FINDINGS: Fluoroscopic guidance was provided during procedure performed by Dr. Spears. A total of 20 seconds of fluoroscopic time was utilized during the procedure and 2 spot images was acquired demo nstrating localization of the lumbar spine. IMPRESSION: As Above.
[2019-04-02 11:56] LABS: Glucose,Whole Blood 283 mg/dL (75-99)
[2019-04-02] MEDS: METOPROLOL TARTRATE 50 MG TAB PO SCH (12:12)
[2019-04-02] MEDS: methylPREDNISolone SOD SUCCI 125 MG/2 ML VIAL IV SCH (12:19)
--- NOTE | 2019-04-02 12:19 | P.PN ---
Subjective Progress Note Date: 04/02/19 Principal diagnosis: Intractable back pain secondary to lumbar stenosis and epistaxis This is a very pleasant 83-year-old gentleman who follows with Dr. Parra as his primary care physician. He has a history of gastroesophageal reflux disease, diabetes John, hypothyroidism, hyperlipidemia, coronary artery disease with previous stent placement, peripheral neuropathy. He also has a history of chronic obstructive pulmonary disease from chronic tobacco dependence. He follows with Dr. Cortés in our office. 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 A previous PET scan had not showed significant uptake in the lymph nodes however upon further review there was some questionable areas of uptake in the patient had undergone a mediastinoscopy on 03/22/[address] Finley. The notes that were biopsied were negative for metastasis. The plan is for eventual surgical intervention of the squamous cell carcinoma. The patient ended up here in the emergency room on 03/27/2019 with intractable back pain and epistaxis. His right Black was packed. 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 No evidence of acute fracture. No dislocations. MRI of the spine revealed broad-based central disc herniation and heterotrophic changes the facets and ligamentum payphone of L3-L4 results in severe canal stenosis with bilateral foraminal encroachment. No evidence of metastatic disease. He is being followed by orthopedics. The plan is for interventional pain management with epidural steroid injections for now. We are asked to see the patient today based on increasing shortness of breath. He does have a Ventimask in place with 35% FiO2 due to the nasal packing and inability to tolerated nasal cannula. He does have a temperature of 100.6 axillary. Chest x-ray showing some worsening infiltrate in the right midlung read as possible pneumonia. Current location of the squamous cell carcinoma. White count 14.5. Hemoglobin 11.8. Creatinine 1.77. He is currently on albuterol and IV Solu-Medrol. Reevaluated today on 04/01/2019, continues to have some back pain, he will be seen by the pain specialist in the morning for possible epidural injections, continues to have nasal packings done bilaterally. These would be addressed by ENT. Overall the patient is better, pain seems to be better controlled. Labs showed that it is not a 14 hemoglobin of 12 basic metabolic profile is normal renal profile is abnormal with creatinine of 1.42. Blood sugar is high needs to be better controlled by the admitting physician. On 04/02/2019 patient seen in follow-up on selective care unit. He is awake and alert, in no acute distress, patient has a right nare packed, today's labs have been reviewed, and hemoglobin is 12.4, white blood cell count is 20.9, electrolytes within normal limits, BUN is 45, creatinine is 1.24. Denies any difficulty breathing, he is on 35% Ventimask, with a pulse ox of 95%, signs are stable, denies shortness of breath, he had epidural injection for intractable low back pain. He is on oral pain medications, and he also receives IV Solu- Medrol at 60 mg every 12 hours, Dr. Jensen is following. No other issues overnight. Objective - Vital Signs Vital signs: Vital Signs Temp 97.1 F L 04/02/19 08:55 Pulse 83 04/02/19 10:27 Resp 20 04/02/19 10:27 BP 115/66 04/02/19 10:27 Pulse Ox 95 04/02/19 10:27 Intake & Output 04/01/19 04/02/19 04/02/19 18:59 06:59 18:59 Intake Total 960 675 Output Total 1750 1400 Balance -790 -725 Weight 116.5 kg Intake: Intake, IV Titration 600 375 Amount Sodium Chloride 0.9% 1, 600 375 000 ml @ 75 mls/hr IV . [id number] [facility] Rx#:[id number] Oral 360 300 Output: Urine 1750 1400 Other: Voiding Method Indwelling Catheter Indwelling Catheter Indwelling Catheter - Exam GENERAL EXAM: Alert, pleasant, white male, on 35% Ventimask, and packing in his right nare, comfortable in no apparent distress. HEAD: Normocephalic/atraumatic. EYES: Normal reaction of pupils, equal size. Conjunctiva pink, sclera white. NOSE: Clear with pink turbinates. THROAT: No erythema or exudates. NECK: No masses, no JVD, no thyroid enlargement, no adenopathy. CHEST: No chest wall deformity. Symmetrical expansion. LUNGS: Equal air entry with no crackles, wheeze, rhonchi or dullness. CVS: Regular rate and rhythm, normal S1 and S2, no gallops, no murmurs, no rubs ABDOMEN: Soft, nontender. No hepatosplenomegaly, normal bowel sounds, no guarding or rigidity. EXTREMITIES: No clubbing, no edema, no cyanosis, 2+ pulses and upper and lower extremities. MUSCULOSKELETAL: Muscle strength and tone normal. SPINE: No scoliosis or deformity SKIN: No rashes CENTRAL NERVOUS SYSTEM: Alert and oriented -3. No focal deficits, tone is normal in all 4 extremities. PSYCHIATRIC: Alert and oriented -3. Appropriate affect. Intact judgment and insight. - Labs CBC & Chem 7: 04/02/19 05:47 04/02/19 05:47 Labs: Abnormal Lab Results - Last 24 Hours (Table) 04/01/19 04/01/19 04/02/19 Range/Units 16:38 20:15 05:47 WBC 20.9 H (3.8-10.6) k/uL Hgb 12.4 L (13.0-17.5) gm/dL MCHC 29.2 L (31.0-37.0) g/dL RDW 17.6 H (11.5-15.5) % Neutrophils # 19.7 H (1.3-7.7) k/uL Lymphocytes # 0.8 L (1.0-4.8) k/uL BUN (9-20) mg/dL Glucose (74-99) mg/dL POC Glucose (mg/dL) 313 H 343 H (75-99) mg/dL ALT (21-72) U/L 04/02/19 04/02/19 04/02/19 Range/Units 05:47 06:28 09:07 WBC (3.8-10.6) k/uL Hgb (13.0-17.5) gm/dL MCHC (31.0-37.0) g/dL RDW (11.5-15.5) % Neutrophils # (1.3-7.7) k/uL Lymphocytes # (1.0-4.8) k/uL BUN 45 H (9-20) mg/dL Glucose 284 H (74-99) mg/dL POC Glucose (mg/dL) 296 H 307 H (75-99) mg/dL ALT 17 L (21-72) U/L 04/02/19 Range/Units 11:51 WBC (3.8-10.6) k/uL Hgb (13.0-17.5) gm/dL MCHC (31.0-37.0) g/dL RDW (11.5-15.5) % Neutrophils # (1.3-7.7) k/uL Lymphocytes # (1.0-4.8) k/uL BUN (9-20) mg/dL Glucose (74-99) mg/dL POC Glucose (mg/dL) 283 H (75-99) mg/dL ALT (21-72) U/L Assessment and Plan Plan: Assessment: #1 Intractable lower back pain due to severe canal stenosis with bilateral foraminal encroachment of L3 and L4. #2 Epistaxis requiring packing of the right nare. #3 Dyspnea secondary to above and right lung infiltrate. 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 Recent mediastinal endoscopy with negative lymph nodes. #5 PET scan showing some uptake in mediastinal lymph nodes. #6 Diabetes mellitus. #7 Diabetic neuropathy. #8 Gastric esophageal reflux disease. #9 History of coronary disease with previous stent placement. #10 Hypothyroidism. #11 Hyperlipidemia. Plan: From pulmonary perspective patient's breathing is stable, vital signs are stable, nasal packing remains in place, patient has received epidural injections, he is on oral pain medications in addition to systemic steroids. Dr. Jensen is following. Patient will have outpatient PET scan and follow-up with Dr. Knox once discharged. Increase activity as tolerated, incentive spirometer to the bedside, maintain aspiration precautions, monitor for any further epistaxis I performed a history & physical examination of the patient and discussed their management with my nurse practitioner, Allison Thakur. I reviewed the nurse practitioner's note and agree with the documented findings and plan of care. Lung sounds are positive for clear breath sounds. The findings and the impression was discussed with the patient. I attest to the documentation by the nurse practitioner. Time with Patient: Less than 30
--- NOTE | 2019-04-02 16:54 | CDI ---
Documentation Clarification Form Date: 04/02/2019 4:36:53 PM From: Charline Butler RN CCDS Admit Date: 03/29/2019 12:57:00 PM Patient Name: Miguel Grace Visit Number: [id number] Discharge Date: ATTENTION: The Clinical Documentation Specialists (CDI) and [facility] Coding Staff appreciate your assistance in clarifying documentation. Please respond to the clarification below the line at the bottom and electronically sign. The CDI & [facility] Coding staff will review the response and follow-up if needed. Please note: Queries are made part of the Legal Health Record. If you have any questions, please contact the author of this message via ITS. Dr. Miguel Parra Congestive Heart Failure is documented in your progress note 03/30/2019 History/Risk Factors:83-year-old male presents to the ED with severe right hip pain, unable to ambulate and nasal bleeding. Medical History COPD; DM; GERD; HTN; CAD; Renal Disease; Clinical Indicators: VS/Pulse OX: 03/31/2019 126/65 112 96.9 20 94% nasal Cannula 4L Chest X Ray: 03/31/2019 Cardiomegaly; Worsening infiltrate in the right midlung likely representing Pneumonia Treatment: Started 03/27/2019 Lasix 40mg po bid; Started 03/28 Lopressor 50mg po daily ; In your professional opinion, can you please clarify the acuity and type of CHF if known? * Acute Systolic Heart Failure * Chronic Systolic Heart Failure * Acute on Chronic Systolic Heart Failure * Acute Diastolic Heart Failure * Chronic Diastolic Heart Failure * Acute on Chronic Heart Failure * Acute Systolic & Diastolic Heart Failure * Chronic Systolic & Diastolic Heart Failure * Acute on Chronic Diastolic Heart Failure * Unable to Determine * Other, please specify (Last Revision: September 2017) MTDD
[2019-04-02 17:11] LABS: Glucose,Whole Blood 247 mg/dL (75-99)
--- NOTE | 2019-04-02 17:17 | CDI ---
Documentation Clarification Form Date: 04/02/2019 4:36:53 PM From: Charline Butler RN CCDS Admit Date: 03/29/2019 12:57:00 PM Patient Name: Miguel Grace Visit Number: [id number] Discharge Date: ATTENTION: The Clinical Documentation Specialists (CDI) and [facility] Coding Staff appreciate your assistance in clarifying documentation. Please respond to the clarification below the line at the bottom and electronically sign. The CDI & [facility] Coding staff will review the response and follow-up if needed. Please note: Queries are made part of the Legal Health Record. If you have any questions, please contact the author of this message via ITS. Dr. Jn Torres MD The patients breathing is stable on a non-rebreather. Your progress note dated 04/01/2019 History/Risk Factors:83-year-old male presents to the ED with severe right hip pain, unable to ambulate and nasal bleeding. Medical History COPD; DM; GERD; HTN; CAD; Renal Disease; Clinical Indicators: Chronic Tobacco Dependence Oxygen dependent Documented in Ortho spine consult 03/31/2019 VS/Pulse OX: 03/31/2019 126/65 112 96.9 20 94% nasal Cannula 4L Chest X Ray: 03/31/2019 Cardiomegaly; Worsening infiltrate in the right midlung likely representing Pneumonia Treatment: 03/27/2019 Ventolin QID prn; 03/28/2019 Solumedrol 40 mg q 8hrs ivp changed 03/31/2019 to 60mg ivp q 12 hrs Oxygen 4L nasal cannula 03/31/2019 94%; Venti Mask flow rate 4 03/31/2019 98%; 03/31/2019 venti mask flow rate 9 fio2 35 ; Venti mask fio2 35 91% 04/02/2019 In your professional opinion, can you please clarify if these findings signify one of the following conditions? * Acute Respiratory Failure (further specify (if known)): * Acute on Chronic Respiratory Failure (further specify if known): With hypercapnia? (pCO2 >50 and pH <7.35) With hypoxia? (pO2 <60 mm Hg or SpO2 <91% on room air) * Respiratory Distress * Respiratory Insufficiency * Other Diagnosis, please specify * Unable to determine (Last Revision: September 2017) Acute hypoxemic respiratory failure MTDD
[2019-04-02 20:38] LABS: Glucose,Whole Blood 314 mg/dL (75-99)
[2019-04-02] MEDS: ATORVASTATIN 20 MG TAB PO SCH (21:15)
--- NOTE | 2019-04-02 22:38 | PN ---
PROGRESS NOTE This is an 83-year-old white male, status post lumbar epidural. Still complains of severe right-sided hip pain, unable to move his leg. Will get a vascular consult to make sure there are no blocked arteries in his right leg. Cardiology and Pulmonary signed off on him. He has right leg and right hip pain. Maybe he will need surgical intervention. He is unable to move his leg. Physical therapy I doubt will help. He can barely move. He has been on IV steroids and pain medicines. Await orthopedic recommendations. All vital signs were reviewed. LUNGS: Clear. CARDIOVASCULAR: S1, S2. ASSESSMENT: 1. . 2. Lumbar neuritis. 3. Right hip osteoarthritis. 4. Chronic obstructive pulmonary disease. 5. Diastolic congestive heart failure. 6. Lung cancer. PROGNOSIS: Extremely guarded. Will need PT/OT and possible surgery intervention in the lumbar spine versus right hip. MMODL / IJN: [id number] /
[2019-04-03] MEDS: SODIUM CHLORIDE 0.9% 1,000 ML IV SCH ×3 (00:03→22:06)
[2019-04-03] MEDS: HYDROmorphone 2 MG/ML 1 ML SYRINGE IVP PRN ×3 (03:52→17:05)
[2019-04-03] MEDS: ACETAMINOPHEN TAB 325 MG TAB PO PRN (04:46)
[2019-04-03 06:43] LABS: Glucose,Whole Blood 215 mg/dL (75-99)
[2019-04-03] MEDS: PANTOPRAZOLE 40 MG TABLET PO SCH (07:10)
[2019-04-03] MEDS: INSULIN ASPART (NovoLOG) 100 UNIT/ML VIAL SQ SCH ×5 (07:10→21:26)
[2019-04-03] MEDS: REPAGLINIDE 1 MG TAB PO SCH ×3 (07:11→17:07)
[2019-04-03] MEDS: GABAPENTIN 300 MG CAP PO SCH ×4 (08:28→21:54)
[2019-04-03] MEDS: METOPROLOL TARTRATE 50 MG TAB PO SCH (08:28)
[2019-04-03] MEDS: BISACODYL 5 MG TABLET.DR PO PRN (08:28)
[2019-04-03] MEDS: CHOLECALCIFEROL 1,000 UNIT TAB PO SCH (08:28)
[2019-04-03] MEDS: FUROSEMIDE 40 MG TAB PO SCH ×2 (08:28→21:56)
[2019-04-03] MEDS: oxyCODONE-APAP 10-325MG 1 EACH TAB PO PRN ×3 (08:29→21:54)
[2019-04-03 09:40] LABS: Anisocytosis Slight; HGB 12.2 gm/dL (13.0-17.5); Hypochromasia Slight; MCH 28.1 pg (25.0-35.0); MCHC 31.3 g/dL (31.0-37.0); MCV 89.6 fL (80.0-100.0); Mean Platelet Volume 7.7; Platelet Count 228 k/uL (150-450); RBC 4.36 m/uL (4.30-5.90); RDW 17.5 % (11.5-15.5); WBC 18.3 k/uL (3.8-10.6)
[2019-04-03 09:54] LABS: Calcium 8.7 mg/dL (8.4-10.2)
[2019-04-03 10:17] LABS: Glucose,Whole Blood 274 mg/dL (75-99)
--- NOTE | 2019-04-03 10:29 | P.PN ---
Subjective Progress Note Date: 04/03/19 Principal diagnosis: Intractable back pain secondary to lumbar stenosis, epistaxis status post packing to the right nare This is a very pleasant 83-year-old gentleman who follows with Dr. Parra as his primary care physician. He has a history of gastroesophageal reflux diseas e, diabetes John, hypothyroidism, hyperlipidemia, coronary artery disease with previous stent placement, peripheral neuropathy. He also has a history of chronic obstructive pulmonary disease from chronic tobacco dependence. He follows with Dr. Cortés in our office. 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 A previous PET scan had not showed significant uptake in the lymph nodes however upon further review there was some questionable areas of uptake in the patient had undergone a mediastinoscopy on 03/22/[address] Finley. The notes that were biopsied were negative for metastasis. The plan is for eventual surgical intervention of the squamous cell carcinoma. The patient ended up here in the emergency room on 03/27/2019 with intractable back pain and epistaxis. His right Black was packed. 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 No evidence of acute fracture. No dislocations. MRI of the spine revealed broad-based central disc herniation and heterotrophic changes the facets and ligamentum payphone of L3-L4 results in severe canal stenosis with bilateral foraminal encroachment. No evidence of metastatic disease. He is being followed by orthopedics. The plan is for interventional pain management with epidural steroid injections for now. We are asked to see the patient today based on increasing shortness of breath. He does have a Ventimask in place with 35% FiO2 due to the nasal packing and inability to tolerated nasal cannula. He does have a temperature of 100.6 axillary. Chest x-ray showing some worsening infiltrate in the right midlung read as possible pneumonia. Current location of the squamous cell carcinoma. White count 14.5. Hemoglobin 11.8. Creatinine 1.77. He is currently on albuterol and IV Solu-Medrol. Reevaluated today on 04/01/2019, continues to have some back pain, he will be seen by the pain specialist in the morning for possible epidural injections, continues to have nasal packings done bilaterally. These would be addressed by ENT. Overall the patient is better, pain seems to be better controlled. Labs showed that it is not a 14 hemoglobin of 12 basic metabolic profile is normal renal profile is abnormal with creatinine of 1.42. Blood sugar is high needs to be better controlled by the admitting physician. On 04/02/2019 patient seen in follow-up on selective care unit. He is awake and alert, in no acute distress, patient has a right nare packed, today's labs have been reviewed, and hemoglobin is 12.4, white blood cell count is 20.9, electrolytes within normal limits, BUN is 45, creatinine is 1.24. Denies any difficulty breathing, he is on 35% Ventimask, with a pulse ox of 95%, signs are stable, denies shortness of breath, he had epidural injection for intractable low back pain. He is on oral pain medications, and he also receives IV Solu- Medrol at 60 mg every 12 hours, Dr. Jensen is following. No other issues overnight. The patient is seen today 04/03/2018 in follow-up on the selective care unit. He is awake and alert in no acute distress. He is still having ongoing issues with low back pain and pain down his right hip and right lower extremity. He did undergo lumbar epidural steroid injection yesterday. No worsening shortness of breath. He remains on a Ventimask due to the packing in place to the right near. That's to be removed today per ENT. White count 18.3. Hemoglobin 12.2. Creatinine 1.16. Remains on bronchodilators. Oral diuretics. Dilaudid and Percocet for pain control. Objective - Vital Signs Vital signs: Vital Signs Temp 97 F L 04/03/19 04:00 Pulse 80 04/03/19 04:00 Resp 20 04/03/19 04:00 BP 150/72 04/03/19 04:00 Pulse Ox 96 04/03/19 04:00 Intake & Output 04/02/19 04/03/19 04/03/19 18:59 06:59 18:59 Intake Total 900 100 Output Total 1475 1300 Balance -575 -1300 100 Weight 114.5 kg Intake: Intake, IV Titration 600 Amount Sodium Chloride 0.9% 1, 600 000 ml @ 75 mls/hr IV . [id number] [facility] Rx#:[id number] Oral 300 100 Output: Urine 1475 1300 Other: Voiding Method Indwelling Catheter Indwelling Catheter - Exam GENERAL EXAM: Alert, pleasant, 83-year-old male patient on 35% Ventimask, and packing in his right nare, comfortable in no apparent distress. HEAD: Normocephalic/atraumatic. EYES: Normal reaction of pupils, equal size. Conjunctiva pink, sclera white. NOSE: Clear with pink turbinates. THROAT: No erythema or exudates. NECK: No masses, no JVD, no thyroid enlargement, no adenopathy. CHEST: No chest wall deformity. Symmetrical expansion. LUNGS: Equal air entry with no crackles, wheeze, rhonchi or dullness. CVS: Regular rate and rhythm, normal S1 and S2, no gallops, no murmurs, no rubs ABDOMEN: Soft, nontender. No hepatosplenomegaly, normal bowel sounds, no guarding or rigidity. EXTREMITIES: No clubbing, no edema, no cyanosis, 2+ pulses and upper and lower extremities. Pain in the right lower extremity. MUSCULOSKELETAL: Muscle strength and tone normal. SPINE: No scoliosis or deformity SKIN: No rashes CENTRAL NERVOUS SYSTEM: No focal deficits, tone is normal in all 4 extremities. PSYCHIATRIC: Alert and oriented -3. Appropriate affect. Intact judgment and insight. - Labs CBC & Chem 7: 04/03/19 09:24 04/03/19 09:24 Labs: Abnormal Lab Results - Last 24 Hours (Table) 04/02/19 04/02/19 04/02/19 Range/Units 11:51 17:06 20:37 WBC (3.8-10.6) k/uL Hgb (13.0-17.5) gm/dL RDW (11.5-15.5) % Carbon Dioxide (22-30) mmol/L BUN (9-20) mg/dL Glucose (74-99) mg/dL POC Glucose (mg/dL) 283 H 247 H 314 H (75-99) mg/dL 04/03/19 04/03/19 04/03/19 Range/Units 06:42 09:24 09:24 WBC 18.3 H (3.8-10.6) k/uL Hgb 12.2 L (13.0-17.5) gm/dL RDW 17.5 H (11.5-15.5) % Carbon Dioxide 33 H (22-30) mmol/L BUN 43 H (9-20) mg/dL Glucose 275 H (74-99) mg/dL POC Glucose (mg/dL) 215 H (75-99) mg/dL 04/03/19 Range/Units 10:16 WBC (3.8-10.6) k/uL Hgb (13.0-17.5) gm/dL RDW (11.5-15.5) % Carbon Dioxide (22-30) mmol/L BUN (9-20) mg/dL Glucose (74-99) mg/dL POC Glucose (mg/dL) 274 H (75-99) mg/dL Assessment and Plan Assessment: Impression: #1 Intractable lower back pain due to severe canal stenosis with bilateral fora bill encroachment of L3 and L4. Status post epidural injection on 04/02/2019. #2 Epistaxis requiring packing of the right nare. #3 Dyspnea secondary to above and right lung infiltrate. 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 Recent mediastinal endoscopy with negative lymph nodes. #5 PET scan showing some uptake in mediastinal lymph nodes. #6 Diabetes mellitus. #7 Diabetic neuropathy. #8 Gastric esophageal reflux disease. #9 History of coronary disease with previous stent placement. #10 Hypothyroidism. #11 Hyperlipidemia. Plan: The patient was seen and evaluated by Dr. Clayton. He remains stable from the pulmonary standpoint. Continue with Ventimask for now as the patient has packing to the right nare. Once his pain is under control and the patient is discharged he'll follow up with Dr. Cortés in our office. He will plan for to repeat the PET scan prior to going to surgery for the right lung squamous cell carcinoma by Dr. Finley. The patient and his are agreeable to the plan. We'll continue to follow and make further recommendations based on his clinical status. I, the cosigning physician, performed a history & physical examination on the patient. Lungs sounds with few scattered rhonchi more so on the right lung. Maintaining good O2 saturations in the 90s on 35% FiO2 via Ventimask. I discussed the assessment and plan of care with my nurse practitioner, Yesica Vanegas. I attest to the above note as dictated by her.
[2019-04-03 12:02] LABS: Glucose,Whole Blood 244 mg/dL (75-99)
[2019-04-03] MEDS: LACTULOSE 20 GM/30 ML CUP PO SCH ×3 (12:37→21:55)
--- NOTE | 2019-04-03 13:06 | CONS ---
DATE OF CONSULTATION: 04/03/2019 This is an 83-year-old gentleman who has a has history of diabetes, obesity, chronic back and hip pain. I was consulted for vascular evaluation. The patient has a pain in his right leg radiating to the back. The patient had a workup including he has a bulging disk. The patient may be scheduled for surgery tomorrow. PHYSICAL EXAMINATION: Brachial, radial, femoral pulses are present dorsal pedis is palpable. Chest has a clear no few crackles noted at lung bases. ABDOMEN: Soft. IMPRESSION: The patient is stable from a vascular point of view, most likely neurogenic pain and the patient may be scheduled for surgery tomorrow. On examination, brachial, radial and femoral pulses are present. Dorsalis pedis is palpable. Chest has a few crackles noted in the lung bases. Abdomen is stable. The patient will be going to surgery tomorrow by Dr. Jensen. MMODL / KAYLEYN: [id number] / CHU
--- NOTE | 2019-04-03 13:32 | P.PN ---
Progress Note - Text Progress Note Date: 04/03/19 Orthopedic spine: History of present illness: Patient is a very pleasant 83-year-old male who is seen in the bedside with his family present for further evaluation regard to his low back pain and severe right lower extremity radiculopathy. Since being seen and examined he has been seen and examined by pain management and underwent an injection. He has not had any significant improvement of his right lower extremity radiculopathy. He states he is unable to roll over in bed or ambulate due to his pain. He has remained lying flat in bed and has not been able to move. He has significant increased right-sided leg pain with performing active range of motion including hip flexion and knee extension on the right. He denies any left lower extremity radiculopathy. At this time he feels he is failing conservative treatment and would like to discuss further treatment options including the possibility of surgical intervention. He currently has a Mckeon catheter due to his inability to ambulate. He has been able to eat without significant difficulty. 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 Patient's family states he was scheduled for right middle lobe lung resection and was cleared for surgery. He is planning to proceed forward with surgical intervention prior to his exacerbation of intractable low back pain and right lower extremity radiculop athy. Patient follows with Dr. Cortés. Patient also follows with Dr. Parra in medicine for other medical diagnoses including diabetes mellitus, diabetic neuropathy, hyperlipidemia, and hypothyroidism. Patient has a history of previous coronary artery disease with previous stent placement. Patient's family states patient was cleared for lung surgery from a cardiac standpoint. Patient does not feel he'll be able to adequately control his symptoms in the outpatient setting and like to discuss proceeding for surgical intervention. Physical exam: Patient is awake, alert, and oriented 3 Vital signs stable Adequate chest excursion with deep inspiration and expiration; patient currently has anchors in the nostril bilaterally following recent epistaxis Patient is unable to roll to his side or sit up for examination of his lumbar spine Dorsiflexion, plantarflexion, and extensor hallucis longus positive sustained bilaterally Lower extremity strength 5/5 on the left Patient has significant difficulty with performing hip flexion and knee extension on the right due to pain Straight leg test positive on the right lower extremity No signs or symptoms of DVT; no calf pain No pain with internal and external rotation of the hips bilaterally Neurovascularly intact Mckeon catheter intact Pertinent studies: MRI of the lumbar spine: L2-3 disc desiccation and facet hypertrophy; L3-4 degenerative disc disease and right paracentral herniated nucleus pulposus with caudal migration with extruded fragment resulting in central canal stenosis and bilateral neural foraminal stenosis; L4-5 central broad-based disc protrusion and severe facet arthropathy with ligamentum flavum hypertrophy resulting in moderate central canal stenosis and bilateral neural foraminal encroachment; L5- S1 disc desiccation and advanced facet arthropathy; no evidence of vertebral body compression fracture Assessment: Intractable low back pain and right lower extremity radiculopathy L3-4 degenerative disc disease L3-4 herniated nucleus pulposus with caudal migration with extruded fragment resulting in central canal stenosis and bilateral neural foraminal stenosis L4-5 central broad-based disc protrusion and facet arthropathy with moderate central canal stenosis Lumbar and lumbosacral facet arthropathy 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 Patient has been discussed in detail with Dr. Massimo Jensen. Patient has been experiencing intractable low back pain and debilitating right lower extremity radiculopathy. He is unable to ambulate and weight-bear on the right lower extremity due to pain. He states he is unable to roll over or move in bed due to his pain. He has been seeing them by pain management is undergone injection without any significant improvement of his symptoms. At this time he feels he is feeling conservative treatment options and would like to proceed forward with surgical intervention. We discussed surgical intervention in significant detail. Patient does have evidence of L3-4 degenerative disc disease and right paracentral herniated nucleus pulposus with caudal migration with extruded fragment resulting in central canal stenosis and bilateral neural foraminal stenosis. This herniation correlates well with his symptoms. At this time, we will plan to proceed forward with surgical intervention if the patient is able to obtain medical clearance by other providers. We did discuss his significant comorbidities other medical diagnoses. 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 We discussed he would need surgical clearance from pulmonology and medicine. If medicine felt necessary, he may need clearance from a cardiology standpoint. Patient feels he is ready to proceed forward with surgical intervention as his symptoms are not currently medically controlled. We discussed surgical intervention could provide some improvement of his symptoms. Given his significant symptoms and findings on imaging, we feel surgical intervention could provide some improvement of his symptoms but discussed it would not alleviate all of his symptomology. The proposed surgical intervention would be an L3-4 laminectomy and decompression with discectomy. We will currently planned for surgical intervention tomorrow, 04/04/2019, if cleared by multiple other medical providers including pulmonology and medicine. We discussed patient will become nothing by mouth status midnight in anticipation for surgical intervention tomorrow, 04/04/2019. I discussed these issues with the patient at length and I answered all of their questions to the best of my ability and the patient understands. I discussed the risk of surgical intervention and alternative treatment options. The risk of surgical intervention was explained to the patient in detail including but not limited to risk of bleeding, risk of infection, risk and need for further surgery, risk of decreased loss of motion of function, malunion, nonunion, hardware failure, nerve damage, paralysis, heart attack, , as well as the fact that surgery may not alleviate her symptoms. I answered all the patient's questions the best of my ability. The patient would like to proceed forward with surgical intervention and will sign informed consent. 3. Patient will continue to be seen and examined by other medical providers including pulmonology and medicine and will need clearance from these providers prior to surgical intervention
--- NOTE | 2019-04-03 14:07 | P.PN ---
Subjective On-call hospitalist covering for Dr. Parra This is a pleasant 83 years old male with past medical history of COPD, diabetes mellitus, GERD, hypertension, sleep apnea on CPAP/BiPAP, coronary artery disease status post cardiac catheterization and stent placement. 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 He presents with intractable back pain secondary to lumbar stenosis Patient is hemodynamically stable. Labs reviewed showing leukocytosis of 18.3 K, and creatinine is 1.1, glucose is 2:15 2-74. Objective - Vital Signs Vital signs: Vital Signs Temp 97.9 F 04/03/19 08:30 Pulse 76 04/03/19 08:30 Resp 20 04/03/19 08:30 BP 159/69 04/03/19 08:30 Pulse Ox 90 L 04/03/19 08:30 Intake & Output 04/02/19 04/03/19 04/03/19 18:59 06:59 18:59 Intake Total 900 200 Output Total 1475 1300 Balance -575 -1300 200 Weight 114.5 kg Intake: Intake, IV Titration 600 Amount Sodium Chloride 0.9% 1, 600 000 ml @ 75 mls/hr IV . [id number] [facility] Rx#:[id number] Oral 300 200 Output: Urine 1475 1300 Other: Voiding Method Indwelling Catheter Indwelling Catheter Indwelling Catheter - Exam GENERAL: The patient is alert and oriented x3, not in any acute distress. Well developed, well nourished. HEENT: Pupils are round and equally reacting to light. EOMI. No scleral icterus. No conjunctival pallor. Normocephalic, atraumatic. No pharyngeal erythema. No thyromegaly. CARDIOVASCULAR: S1 and S2 present. No murmurs, rubs, or gallops. PULMONARY: Chest is clear to auscultation, no wheezing or crackles. ABDOMEN: Soft, nontender, nondistended, normoactive bowel sounds. No palpable organomegaly. MUSCULOSKELETAL: No joint swelling or deformity. EXTREMITIES: No cyanosis, clubbing, or pedal edema. NEUROLOGICAL: Gross neurological examination did not reveal any focal deficits. SKIN: No rashes. no petechiae. - Labs CBC & Chem 7: 04/03/19 09:24 04/03/19 09:24 Labs: Abnormal Lab Results - Last 24 Hours (Table) 04/02/19 04/02/19 04/03/19 Range/Units 17:06 20:37 06:42 WBC (3.8-10.6) k/uL Hgb (13.0-17.5) gm/dL RDW (11.5-15.5) % Carbon Dioxide (22-30) mmol/L BUN (9-20) mg/dL Glucose (74-99) mg/dL POC Glucose (mg/dL) 247 H 314 H 215 H (75-99) mg/dL 04/03/19 04/03/19 04/03/19 Range/Units 09:24 09:24 10:16 WBC 18.3 H (3.8-10.6) k/uL Hgb 12.2 L (13.0-17.5) gm/dL RDW 17.5 H (11.5-15.5) % Carbon Dioxide 33 H (22-30) mmol/L BUN 43 H (9-20) mg/dL Glucose 275 H (74-99) mg/dL POC Glucose (mg/dL) 274 H (75-99) mg/dL 04/03/19 Range/Units 11:53 WBC (3.8-10.6) k/uL Hgb (13.0-17.5) gm/dL RDW (11.5-15.5) % Carbon Dioxide (22-30) mmol/L BUN (9-20) mg/dL Glucose (74-99) mg/dL POC Glucose (mg/dL) 244 H (75-99) mg/dL Assessment and Plan Assessment: Severe lumbar stenosis with intractable back pain Recent history of new diagnosis of lung cancer with mediastinal lymphadenopathy with squamous cell cancer History of coronary artery disease, status post stent Sleep apnea on CPAP/BiPAP COPD, not in acute exacerbation Diabetes mellitus GERD Hypertension Plan: This is a pleasant 83 years old male who presents with severe back pain and lumbar stenosis. Patient is planned for surgery tomorrow. Patient is at some risk from this procedure/surgery. However I think it's acceptable to proceed with the surgery at this time. Also cardiology and pulmonary team are following the case, and already evaluated the patient. Continue with oral Lasix, pain management. Labs and medication were reviewed.. Continue same treatment. Continue with symptomatic treatment. Resume home medication. Monitor lytes and vitals. DVT and GI prophylaxis. Further recommendations of the clinical course of the patient DVT prophylaxis: No antegrade lesion in view of patient going for back surgery, we'll defer orthopedic team GI Prophylaxis: Pepcid PT/OT: Pending Prognosis is guarded
[2019-04-03 16:59] LABS: Glucose,Whole Blood 171 mg/dL (75-99)
--- NOTE | 2019-04-03 17:29 | P.PN ---
Progress Note - Text Progress Note Date: 04/03/19 The patient is seen and examined today again at bedside. He continues to have severe pain in his right lower extremity toward his right lateral and anterior thigh. He had epidural steroid injection yesterday he says that might help a little bit into his hip but he still has continued pain in his right leg he is unable to mobilize due to the severity of the nerve type pain in his right leg. He has been managed for his other medical issues including his renal insufficiency. He's been managed for his pulmonary issues well. Neurologic status is unchanged. His vital signs are stable he's afebrile Assessment and plan Inability to ambulate Right lower extremity radiculopathy with right lower extremity weakness Herniated nucleus with ecchymosis L3 4 with severe right foraminal stenosis Degenerative disc disease In terms of his pain at his right leg in his radiculopathy at this seems to stem primarily from the disc herniation at L4 3 4. He does not have obvious new acute hip pathology to account for his symptoms. He had an epidural steroid injection and gave some mild relief to his thigh but he is continuing to have great difficulty with any sort of mobilization ambulation due to the disc herniation. With his severe symptoms and his new disc herniation L3 4 and think that he could have some benefit with surgical laminectomy decompression and discectomy at L3 4. I think this would help his lower extremity and comes and help him to mobilize as well. This could help his neurologic status and strength as well. He does have multiple medical issues and is getting clearance from medical services in hopes of pursuing surgery tomorrow April 04. I discussed the risk of occasions alternatives and benefits. I discussed the risk of bleeding risk of infection risk and need for further surgery risk of decreased loss of motion, the risk of problems with his airway problems with his lung recovery need to be on a ventilator during the surgery was all explained to him we also discussed the risk of complications with the surgery in terms of his cardiac issues and even possibly heart attack and . Patient elected to proceed with surgical intervention for laminectomy decompression and discectomy at L3 4 and a signed informed consent. We'll make him nothing by mouth after midnight and we will proceed plan to proceed with the surgery tomorrow if he is cleared by his medical services. Answers questions best my ability and he is agreeable.
[2019-04-03 21:06] LABS: Glucose,Whole Blood 123 mg/dL (75-99)
[2019-04-03] MEDS: ATORVASTATIN 20 MG TAB PO SCH (21:55)
[2019-04-03] MEDS: OXYMETAZOLINE 0.05% NASL SPRAY 1 SPRAY BOTTLE NASAL SCH (21:56)
[2019-04-03] MEDS: FAMOTIDINE 20 MG/2 ML VIAL IV SCH (21:56)
[2019-04-04] MEDS: HYDROmorphone 2 MG/ML 1 ML SYRINGE IVP PRN ×2 (01:40→07:22)
[2019-04-04] MEDS: LACTULOSE 20 GM/30 ML CUP PO SCH ×3 (01:44→09:44)
[2019-04-04] MEDS: INSULIN ASPART (NovoLOG) 100 UNIT/ML VIAL SQ SCH ×4 (06:08→22:19)
[2019-04-04] MEDS: REPAGLINIDE 1 MG TAB PO SCH ×3 (06:09→17:49)
[2019-04-04] MEDS: PANTOPRAZOLE 40 MG TABLET PO SCH (06:09)
[2019-04-04 06:39] LABS: Glucose,Whole Blood 201 mg/dL (75-99)
[2019-04-04 07:05] LABS: Anisocytosis Slight; HCT 40.9 % (39.0-53.0); Hypochromasia Moderate; MCH 26.7 pg (25.0-35.0); MCHC 29.4 g/dL (31.0-37.0); MCV 90.8 fL (80.0-100.0); Mean Platelet Volume 7.6; Platelet Count 187 k/uL (150-450); RBC 4.51 m/uL (4.30-5.90); RDW 17.3 % (11.5-15.5); WBC 17.9 k/uL (3.8-10.6)
[2019-04-04 07:15] LABS: Potassium 4.2 mmol/L (3.5-5.1)
--- NOTE | 2019-04-04 07:40 | PN ---
PROGRESS NOTE DATE OF PROGRESS NOTE: 04/03/2019 SUBJECTIVE: Vital signs are stable. The patient has not had any further bleeding from the right side of his nose. OBJECTIVE: The Rhino-Stat double nasal balloons were removed this afternoon without incident. Several puffs of Afrin nasal spray were placed in the right nasal chamber as a vasoconstrictor and a mustache dressing was applied. ASSESSMENT: Right anterior, posterior epistaxis. PLAN: The plan is to leave the nasal packing out for now. I have advised the patient not to blow his nose. I have also advised the patient if he has to sneeze, he should let the force of the sneeze come out through his mouth. In addition to this, I have applied a mustache dressing, which can be changed on a p.r.n. basis. If the patient feels there is excess mucus in his nose, then he can sniff it back and spit it out. I will request that the nurses apply the Afrin nasal spray 2 puffs in the right side 3 times daily until the patient is discharged. I will also try to follow the patient with you until he is discharged. My understanding is that he is scheduled to undergo back surgery, which I am sure will keep him in the hospital at least over this coming weekend. MMODL / IJN: [id number] /
--- NOTE | 2019-04-04 08:48 | P.PN ---
Subjective On-call hospitalist covering for Dr. Parra This is a pleasant 83 years old male with past medical history of COPD, diabetes mellitus, GERD, hypertension, sleep apnea on CPAP/BiPAP, coronary artery disease status post cardiac catheterization and stent placement. 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 He presents with intractable back pain secondary to lumbar stenosis Patient is hemodynamically stable. Labs reviewed showing leukocytosis of 18.3 K, and creatinine is 1.1, glucose is 2:15 2-74. 04/04/2019 Patient is seen today in the morning, he is lying in bed not in distress however is still complaining of from significant pain in his lower back. Patient is planned to have surgery for his spine today at 1: 30 p.m., pulmonary and cardiology preoperative evaluation has been requested. Hemodynamically stable. Showing doubly bc of 17.9 k which is trending down slowly. creatinine is 1.3, sugars controlled, potassium 4.2 and sodium 141 Discussed with staff Objective - Vital Signs Vital signs: Vital Signs Temp 98.2 F 04/04/19 00:00 Pulse 101 H 04/04/19 04:00 Resp 20 04/04/19 04:00 BP 111/63 04/04/19 04:00 Pulse Ox 93 L 04/04/19 04:00 Intake & Output 04/03/19 04/04/19 04/04/19 18:59 06:59 18:59 Intake Total 1000 Output Total 1700 1700 Balance -700 -1700 Weight 116 kg Intake: IV 400 Sodium Chloride 0.9% 1, 400 000 ml @ 50 mls/hr IV . Q20H [facility] Rx#:[id number] Oral 600 Output: Urine 1700 1700 Straight 1700 Other: Voiding Method Indwelling Catheter Indwelling Catheter # Voids 1 - Exam GENERAL: The patient is alert and oriented x3, not in any acute distress. Well developed, well nourished. HEENT: Pupils are round and equally reacting to light. EOMI. No scleral icterus. No conjunctival pallor. Normocephalic, atraumatic. No pharyngeal erythema. No thyromegaly. CARDIOVASCULAR: S1 and S2 present. No murmurs, rubs, or gallops. PULMONARY: Chest is clear to auscultation, no wheezing or crackles. ABDOMEN: Soft, nontender, nondistended, normoactive bowel sounds. No palpable organomegaly. MUSCULOSKELETAL: No joint swelling or deformity. EXTREMITIES: No cyanosis, clubbing, or pedal edema. NEUROLOGICAL: Gross neurological examination did not reveal any focal deficits. SKIN: No rashes. no petechiae. - Labs CBC & Chem 7: 04/04/19 06:18 04/04/19 06:18 Labs: Abnormal Lab Results - Last 24 Hours (Table) 04/03/19 04/03/19 04/03/19 Range/Units 09:24 09:24 10:16 WBC 18.3 H (3.8-10.6) k/uL Hgb 12.2 L (13.0-17.5) gm/dL MCHC (31.0-37.0) g/dL RDW 17.5 H (11.5-15.5) % Chloride (98-107) mmol/L Carbon Dioxide 33 H (22-30) mmol/L BUN 43 H (9-20) mg/dL Creatinine (0.66-1.25) mg/dL Glucose 275 H (74-99) mg/dL POC Glucose (mg/dL) 274 H (75-99) mg/dL 04/03/19 04/03/19 04/03/19 Range/Units 11:53 16:55 21:05 WBC (3.8-10.6) k/uL Hgb (13.0-17.5) gm/dL MCHC (31.0-37.0) g/dL RDW (11.5-15.5) % Chloride (98-107) mmol/L Carbon Dioxide (22-30) mmol/L BUN (9-20) mg/dL Creatinine (0.66-1.25) mg/dL Glucose (74-99) mg/dL POC Glucose (mg/dL) 244 H 171 H 123 H (75-99) mg/dL 04/04/19 04/04/19 04/04/19 Range/Units 06:18 06:18 06:37 WBC 17.9 H (3.8-10.6) k/uL Hgb 12.0 L (13.0-17.5) gm/dL MCHC 29.4 L (31.0-37.0) g/dL RDW 17.3 H (11.5-15.5) % Chloride 97 L (98-107) mmol/L Carbon Dioxide 34 H (22-30) mmol/L BUN 35 H (9-20) mg/dL Creatinine 1.30 H (0.66-1.25) mg/dL Glucose 229 H (74-99) mg/dL POC Glucose (mg/dL) 201 H (75-99) mg/dL Assessment and Plan Assessment: Severe lumbar stenosis with intractable back pain Recent history of new diagnosis of lung cancer with mediastinal lymphadenopathy with squamous cell cancer History of coronary artery disease, status post stent Sleep apnea on CPAP/BiPAP COPD, not in acute exacerbation Diabetes mellitus GERD Hypertension Plan: This is a pleasant 83 years old male who presents with severe back pain and lumbar stenosis. Patient is planned for surgery tomorrow. Patient is at some risk from this procedure/surgery. However I think it's acceptable to proceed with the surgery from medical standpoint at this time. Also cardiology and pulmonary team are following the case, and already evaluated the patient. Continue with oral Lasix, pain management. Labs and medication were reviewed.. Continue same treatment. Continue with symptomatic treatment. Resume home medication. Monitor lytes and vitals. DVT and GI prophylaxis. Further recommendations of the clinical course of the patient DVT prophylaxis: No antegrade lesion in view of patient going for back surgery, we'll defer orthopedic team GI Prophylaxis: Pepcid PT/OT: Pending Prognosis is guarded
[2019-04-04] MEDS: FUROSEMIDE 40 MG TAB PO SCH ×2 (10:12→23:52)
[2019-04-04] MEDS: CHOLECALCIFEROL 1,000 UNIT TAB PO SCH (10:12)
[2019-04-04] MEDS: GABAPENTIN 300 MG CAP PO SCH ×4 (10:12→22:20)
[2019-04-04] MEDS: FAMOTIDINE 20 MG/2 ML VIAL IV SCH (11:00)
[2019-04-04] MEDS: METOPROLOL TARTRATE 50 MG TAB PO SCH (11:01)
[2019-04-04] MEDS: OXYMETAZOLINE 0.05% NASL SPRAY 1 SPRAY BOTTLE NASAL SCH ×2 (11:09→23:52)
--- NOTE | 2019-04-04 11:20 | P.PN ---
Subjective Progress Note Date: 04/04/19 Principal diagnosis: Intractable back pain secondary to lumbar stenosis, epistaxis status post packing to the right nare This is a very pleasant 83-year-old gentleman who follows with Dr. Parra as his primary care physician. He has a history of gastroesophageal reflux diseas e, diabetes John, hypothyroidism, hyperlipidemia, coronary artery disease with previous stent placement, peripheral neuropathy. He also has a history of chronic obstructive pulmonary disease from chronic tobacco dependence. He follows with Dr. Cortés in our office. 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 A previous PET scan had not showed significant uptake in the lymph nodes however upon further review there was some questionable areas of uptake in the patient had undergone a mediastinoscopy on 03/22/[address] Finley. The notes that were biopsied were negative for metastasis. The plan is for eventual surgical intervention of the squamous cell carcinoma. The patient ended up here in the emergency room on 03/27/2019 with intractable back pain and epistaxis. His right Black was packed. 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 No evidence of acute fracture. No dislocations. MRI of the spine revealed broad-based central disc herniation and heterotrophic changes the facets and ligamentum payphone of L3-L4 results in severe canal stenosis with bilateral foraminal encroachment. No evidence of metastatic disease. He is being followed by orthopedics. The plan is for interventional pain management with epidural steroid injections for now. We are asked to see the patient today based on increasing shortness of breath. He does have a Ventimask in place with 35% FiO2 due to the nasal packing and inability to tolerated nasal cannula. He does have a temperature of 100.6 axillary. Chest x-ray showing some worsening infiltrate in the right midlung read as possible pneumonia. Current location of the squamous cell carcinoma. White count 14.5. Hemoglobin 11.8. Creatinine 1.77. He is currently on albuterol and IV Solu-Medrol. Reevaluated today on 04/01/2019, continues to have some back pain, he will be seen by the pain specialist in the morning for possible epidural injections, continues to have nasal packings done bilaterally. These would be addressed by ENT. Overall the patient is better, pain seems to be better controlled. Labs showed that it is not a 14 hemoglobin of 12 basic metabolic profile is normal renal profile is abnormal with creatinine of 1.42. Blood sugar is high needs to be better controlled by the admitting physician. On 04/02/2019 patient seen in follow-up on selective care unit. He is awake and alert, in no acute distress, patient has a right nare packed, today's labs have been reviewed, and hemoglobin is 12.4, white blood cell count is 20.9, electrolytes within normal limits, BUN is 45, creatinine is 1.24. Denies any difficulty breathing, he is on 35% Ventimask, with a pulse ox of 95%, signs are stable, denies shortness of breath, he had epidural injection for intractable low back pain. He is on oral pain medications, and he also receives IV Solu- Medrol at 60 mg every 12 hours, Dr. Jensen is following. No other issues overnight. The patient is seen today 04/03/2018 in follow-up on the selective care unit. He is awake and alert in no acute distress. He is still having ongoing issues with low back pain and pain down his right hip and right lower extremity. He did undergo lumbar epidural steroid injection yesterday. No worsening shortness of breath. He remains on a Ventimask due to the packing in place to the right near. That's to be removed today per ENT. White count 18.3. Hemoglobin 12.2. Creatinine 1.16. Remains on bronchodilators. Oral diuretics. Dilaudid and Percocet for pain control. The patient is seen today 04/04/2019 in follow-up on the selective care unit. He is currently resting comfortably in bed. Awake and alert in no acute distress. He has had ongoing issues with right hip and lower extremity pain. Plan is for surgery today with orthopedics. White count 17.9. Hemoglobin 12.0. Creatinine 1.30. He is continued on bronchodilators. Objective - Vital Signs Vital signs: Vital Signs Temp 97.7 F 04/04/19 08:00 Pulse 111 H 04/04/19 08:00 Resp 20 04/04/19 08:00 BP 110/67 04/04/19 08:00 Pulse Ox 95 04/04/19 08:00 Intake & Output 04/03/19 04/04/1919 18:59 06:59 18:59 Intake Total 1000 Output Total 1700 1700 Balance -700 -1700 Weight 116 kg 116 kg Intake: IV 400 Sodium Chloride 0.9% 1, 400 000 ml @ 50 mls/hr IV . Q20H [facility] Rx#:[id number] Oral 600 Output: Urine 1700 1700 Straight 1700 Other: Voiding Method Indwelling Catheter Indwelling Catheter # Voids 1 0 # Bowel Movements 0 - Exam GENERAL EXAM: Alert, pleasant, 83-year-old male patient on 50% Ventimask, fairly comfortable in no acute distress. HEAD: Normocephalic/atraumatic. EYES: Normal reaction of pupils, equal size. Conjunctiva pink, sclera white. NOSE: Clear with pink turbinates. THROAT: No erythema or exudates. NECK: No masses, no JVD, no thyroid enlargement, no adenopathy. CHEST: No chest wall deformity. Symmetrical expansion. LUNGS: Equal air entry with crackles in the right lung base. CVS: Regular rate and rhythm, normal S1 and S2, no gallops, no murmurs, no rubs ABDOMEN: Soft, nontender. No hepatosplenomegaly, normal bowel sounds, no guarding or rigidity. EXTREMITIES: No clubbing, no edema, no cyanosis, 2+ pulses and upper and lower extremities. Pain in the right lower extremity. MUSCULOSKELETAL: Muscle strength and tone normal. SPINE: No scoliosis or deformity SKIN: No rashes CENTRAL NERVOUS SYSTEM: No focal deficits, tone is normal in all 4 extremities. PSYCHIATRIC: Alert and oriented -3. Appropriate affect. Intact judgment and insight. - Labs CBC & Chem 7: 04/04/19 06:18 04/04/19 06:18 Labs: Abnormal Lab Results - Last 24 Hours (Table) 04/03/19 04/03/19 04/03/19 Range/Units 11:53 16:55 21:05 WBC (3.8-10.6) k/uL Hgb (13.0-17.5) gm/dL MCHC (31.0-37.0) g/dL RDW (11.5-15.5) % Chloride (98-107) mmol/L Carbon Dioxide (22-30) mmol/L BUN (9-20) mg/dL Creatinine (0.66-1.25) mg/dL Glucose (74-99) mg/dL POC Glucose (mg/dL) 244 H 171 H 123 H (75-99) mg/dL 04/04/19 04/04/19 04/04/19 Range/Units 06:18 06:18 06:37 WBC 17.9 H (3.8-10.6) k/uL Hgb 12.0 L (13.0-17.5) gm/dL MCHC 29.4 L (31.0-37.0) g/dL RDW 17.3 H (11.5-15.5) % Chloride 97 L (98-107) mmol/L Carbon Dioxide 34 H (22-30) mmol/L BUN 35 H (9-20) mg/dL Creatinine 1.30 H (0.66-1.25) mg/dL Glucose 229 H (74-99) mg/dL POC Glucose (mg/dL) 201 H (75-99) mg/dL Assessment and Plan Assessment: Impression: #1 Intractable lower back pain due to severe canal stenosis with bilateral foraminal encroachment of L3 and L4. Status post epidural injection on 04/02/2019. #2 Epistaxis requiring packing of the right nare. #3 Dyspnea secondary to above and right lung infiltrate. 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 Recent mediastinal endoscopy with negative lymph nodes. #5 PET scan showing some uptake in mediastinal lymph nodes. #6 Diabetes mellitus. #7 Diabetic neuropathy. #8 Gastric esophageal reflux disease. #9 History of coronary disease with previous stent placement. #10 Hypothyroidism. #11 Hyperlipidemia. Plan: The patient was seen and evaluated by Dr. Clayton. Orthopedics is planning to take the patient to surgery today. We'll continue to follow closely. I, the cosigning physician, performed a history & physical examination on the patient. Lungs sounds with few scattered rhonchi more so on the right lung. Maintaining good O2 saturations in the 90s on 50% FiO2 via Ventimask. I discussed the assessment and plan of care with my nurse practitioner, Yesica Vanegas. I attest to the above note as dictated by her.
--- NOTE | 2019-04-04 11:39 | P.PN ---
Subjective Progress Note Date: 04/04/19 This is a pleasant 83-year-old male past medical history significant for lung cancer, coronary artery disease status post angioplasty of the LAD and circumflex July 2017, COPD, diabetes mellitus, hypertension, chronic diastolic heart failure, peripheral vascular disease and former nicotine d ependence. We have been asked to see him in consultation secondary to shortness of breath. He follows in the office with Dr. Zamudio. He recently saw him in the office in February secondary to presurgical evaluation prior to scheduled for lobectomy. At that time he underwent echocardiography and stress testing. Lexiscan stress test was negative for reversibility. Echocardiogram showed normal LV function. His scheduled lobectomy was canceled secondary to significant discomfort in the hip and further workup required. Patient has been having some issues with ambulation, he has right lower extremity radiculopathy with right lower extremity weakness and has been seen in consultation by Dr. Peters who plans on performing surgery today. From cardiology's perspective, as mentioned earlier in this note, patient had a recent workup in the office by echo and stress testing and was cleared for lobectomy. From our perspective, the patient may also proceed with this surgery scheduled today. Blood pressure this morning 110/60 with a heart rate of 90. Objective - Vital Signs Vital signs: Vital Signs Temp 97.7 F 04/04/19 08:00 Pulse 111 H 04/04/19 08:00 Resp 20 04/04/19 08:00 BP 110/67 04/04/19 08:00 Pulse Ox 95 04/04/19 08:00 Intake & Output 04/03/19 04/04/19 04/04/19 18:59 06:59 18:59 Intake Total 1000 Output Total 1700 1700 Balance -700 -1700 Weight 116 kg 116 kg Intake: IV 400 Sodium Chloride 0.9% 1, 400 000 ml @ 50 mls/hr IV . Q20H [facility] Rx#:[id number] Oral 600 Output: Urine 1700 1700 Straight 1700 Other: Voiding Method Indwelling Catheter Indwelling Catheter # Voids 1 0 # Bowel Movements 0 - Exam GENERAL EXAM: Alert, pleasant, 83-year-old male patient on 50% Ventimask, fairly comfortable in no acute distress. HEAD: Normocephalic/atraumatic. EYES: Normal reaction of pupils, equal size. Conjunctiva pink, sclera white. NOSE: Clear with pink turbinates. THROAT: No erythema or exudates. NECK: No masses, no JVD, no thyroid enlargement, no adenopathy. CHEST: No chest wall deformity. Symmetrical expansion. LUNGS: Equal air entry with crackles in the right lung base. CVS: Regular rate and rhythm, normal S1 and S2, no gallops, no murmurs, no rubs ABDOMEN: Soft, nontender. No hepatosplenomegaly, normal bowel sounds, no guarding or rigidity. EXTREMITIES: No clubbing, no edema, no cyanosis, 2+ pulses and upper and lower extremities. Pain in the right lower extremity. MUSCULOSKELETAL: Muscle strength and tone normal. SPINE: No scoliosis or deformity SKIN: No rashes CENTRAL NERVOUS SYSTEM: No focal deficits, tone is normal in all 4 extremities. PSYCHIATRIC: Alert and oriented -3. Appropriate affect. Intact judgment and insight. - Labs CBC & Chem 7: 04/04/19 06:18 04/04/19 06:18 Labs: Abnormal Lab Results - Last 24 Hours (Table) 04/03/19 04/03/19 04/03/19 Range/Units 11:53 16:55 21:05 WBC (3.8-10.6) k/uL Hgb (13.0-17.5) gm/dL MCHC (31.0-37.0) g/dL RDW (11.5-15.5) % Chloride (98-107) mmol/L Carbon Dioxide (22-30) mmol/L BUN (9-20) mg/dL Creatinine (0.66-1.25) mg/dL Glucose (74-99) mg/dL POC Glucose (mg/dL) 244 H 171 H 123 H (75-99) mg/dL 04/04/19 04/04/19 04/04/19 Range/Units 06:18 06:18 06:37 WBC 17.9 H (3.8-10.6) k/uL Hgb 12.0 L (13.0-17.5) gm/dL MCHC 29.4 L (31.0-37.0) g/dL RDW 17.3 H (11.5-15.5) % Chloride 97 L (98-107) mmol/L Carbon Dioxide 34 H (22-30) mmol/L BUN 35 H (9-20) mg/dL Creatinine 1.30 H (0.66-1.25) mg/dL Glucose 229 H (74-99) mg/dL POC Glucose (mg/dL) 201 H (75-99) mg/dL Assessment and Plan Plan: Impression: #1 Intractable lower back pain due to severe canal stenosis with bilateral foraminal encroachment of L3 and L4. Status post epidural injection on 04/02/2019. Scheduled for surgery today by Dr. Jnesen. #2 Epistaxis requiring packing of the right nare. #3 Dyspnea secondary to above and right lung infiltrate. 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 Recent mediastinal endoscopy with negative lymph nodes. #5 PET scan showing some uptake in mediastinal lymph nodes. #6 Diabetes mellitus. #7 Diabetic neuropathy. #8 Gastric esophageal reflux disease. #9 History of coronary disease with previous stent placement. #10 Hypothyroidism. #11 Hyperlipidemia. Plan From cardiology's perspective, patient is cleared to proceed with surgery today. He did have a recent echo and stress test performed in the office as mentioned earlier in this note. If you have any further questions please don't hesitate to call. DNP note has been reviewed, I agree with a documented findings and plan of care. Patient was seen and examined.
[2019-04-04 11:50] LABS: Glucose,Whole Blood 229 mg/dL (75-99)
[2019-04-04] MEDS: SODIUM CHLORIDE 0.9% 1,000 ML IV SCH (12:43)
[2019-04-04] MEDS ORDERED: IV FLUID CONTINUATION 1,000 ML IV ONE (13:30)
[2019-04-04] MEDS ORDERED: ceFAZolin 3 GM in SODIUM CHLORIDE 0.9% 100 ML IVPB ONE (13:35)
[2019-04-04 13:48] LABS: Glucose,Whole Blood 234 mg/dL (75-99)
[2019-04-04] MEDS ORDERED: fentaNYL (PF) 50 MCG/ML 2 ML AMP IV ONE ×2 (13:53)
[2019-04-04] MEDS ORDERED: GLYCOPYRROLATE 0.2 MG/ML 2 ML VIAL ONE (14:15)
[2019-04-04] MEDS ORDERED: ePHEDrine SULFATE/0.9% NACL/PF 50 MG/5 ML SYRINGE IV ONE (14:15)
[2019-04-04] MEDS ORDERED: ROCURONIUM BROMIDE 10 MG/ML 10 ML VIAL IV ONE (14:15)
[2019-04-04] MEDS ORDERED: NEOSTIGMINE 1 MG/ML 10 ML VIAL ONE (14:15)
[2019-04-04] MEDS ORDERED: PROPOFOL 10 MG/ML 20 ML VIAL IV ONE (14:15)
[2019-04-04] MEDS ORDERED: LIDOCAINE 1% INJ 10MG/ML (20 ML MDV) ONE (14:15)
[2019-04-04] MEDS ORDERED: KETAMINE 10 MG/ML 20 ML VIAL ONE (14:15)
[2019-04-04] MEDS ORDERED: PHENYLEPHRINE-0.9% NACL SYG 1 MG/10 ML SYRINGE ONE (14:15)
[2019-04-04] MEDS ORDERED: SUCCINYLCHOLINE CHLORIDE 100 MG/5 ML SYR IV ONE (14:15)
[2019-04-04] MEDS ORDERED: fentaNYL (PF) 50 MCG/ML 2 ML AMP ONE (14:15)
[2019-04-04] MEDS ORDERED: BUPIVACAINE (PF) 0.25% 30 ML VIAL SQ ONE ×2 (14:17→14:53)
[2019-04-04] MEDS ORDERED: BACITRACIN 50,000 UNIT in SODIUM CHLORIDE 0.9% IRRIGATIO 1,000 ML IRRIGATION ONE (14:28)
[2019-04-04] MEDS ORDERED: HYDROcodone/APAP 5-325MG 1 EACH TAB PO PRN (15:36)
--- NOTE | 2019-04-04 15:42 | FL ---
EXAMINATION TYPE: FL guidance operating room DATE OF EXAM: 04/04/2019 CLINICAL HISTORY: Needle placement. Fluoroscopic documentation. TECHNIQUE: Fluoroscopy. COMPARISON: None. FINDINGS: Fluoroscopic guidance was provided during procedure performed by Dr. Jensen. A total of 3 seconds of fluoroscopic time was utilized during the procedure and 1 spot image was acquired demonstr ating localization of the inferior margin of the L4 vertebral body from a posterior approach. IMPRESSION: As Above.
--- NOTE | 2019-04-04 15:43 | P.OP ---
Date of Procedure: 04/04/19 Preoperative Diagnosis: Herniated nucleus pulposus L3 4, right lower extremity radiculopathy, inability to ambulate, degenerative disc disease, low back pain, right lower extremity weakness Postoperative Diagnosis: Same Anesthesia: GETA Pathology: none sent Condition: stable Disposition: PACU Description of Procedure: BRIEF OPERATIVE NOTE Preoperative Diagnosis:Herniated nucleus pulposus L3 4, right lower extremity radiculopathy, inability to ambulate, degenerative disc disease, low back pain, right lower extremity weakness Postoperative Diagnosis:Herniated nucleus pulposus L3 4, right lower extremity radiculopathy, inability to ambulate, degenerative disc disease, low back pain, right lower extremity weakness Procedure: Laminectomy and decompression L3 4 Discectomy for decompression L3 4 Use of fluoroscopic guidance Surgeon: Dr. Jensen Banana Ripening Room Supervisor: Kathleen Campbell is present throughout the entire the case perslexii [email or web address] during positioning, dissection, exposure, visualization, and all crucial elements of the case as well as closure. Anesthesia: General anesthesia per Dr. Love Estimated blood loss: Approximately 50 mL Complications: None apparent Components implanted: None Disposition: To recovery room in good stable condition. OPERATIVE INDICATIONS The patient has been having issues in their lower back and lower extremities. The patient has multiple medical issues and has a complex medical case. He was admitted to the hospital in regards to her renal insufficiency and renal insult and severe right hip and lower extremity pain and inability to ambulate. He was initially worked up in terms of possible hip injury was found that he had a large disc herniation at L3 4 which correlated with his low back and lower extremity pain. He is having some weakness of his right quadriceps as well which correlated with his imaging findings of disc herniation at L3 4. We attempted to treat patient conservatively with aggressive conservative management. The patient has significant medical issues and we attempted medication therapy and interventional pain management. The patient was having unrelenting pain in his right lower extremity which correlated with the disc herniation at L3 4 which appeared to be new for him. We discussed the possibility of surgery. The patient has been through conservative treatment. We discussed various treatment options including surgery, and the patient wishes to proceed with surgery We discussed the risk, patient's alternatives and benefits of surgery including but not limited to, risk of bleeding risk of infection, risk of need for further surgery, risk of decreased, loss of motion, loss of function, nerve damage, paralysis, heart attack, blindness and . The patient and the family had significant discussions with us in regards to the nature of the surgery and the risk involved given his complex medical state. Patient is also a DO NOT RESUSCITATE advance directives and we discussed the necessity to have the DO NOT RESUSCITATE suspended while in the operating room for the procedure itself. The family understood this as did the patient and they're agreed. Anesthesia discussed this issue with him as well and the possibility that he may remained intubated in the immediate postoperative period and the family understood. OPERATIVE SUMMARY After discussing all the risks, patient alternatives and benefits at length, the patient elected to proceed with surgical intervention, signed informed consent, and presented for their procedure. The patient was seen and examined in the preoperative holding area and the surgical site was marked. The patient was given antibiotics and brought to the operating room. The patient was sedated and intubated by anesthesia in standard fashion. The patient was positioned on to the operating room table in a prone position on the appropriate frame which was well-padded and well molded. We were careful to pad any bony prominences and pressure points. We were careful to maintain the patient's cervical spine and good neutral alignment and position throughout. The patient was prepped and draped in a normal standard fashion. An appropriate timeout and keystone protocol performed. We were able to proceed with the surgery. Fluoroscopy was utilized to establish the appropriate level at L3 4. The local wound area was infiltrated with local anesthetic. An incision was made at the midline longitudinally over the appropriate levels at L3 4. Dissection was taken down subcutaneously to the level of the fascia which was split midline. Dissection was taken over the lamina. Intraoperative fluoroscopy was taken which showed a marker at the appropriate level at L3 4 on the right. With the appropriate level positively confirmed, we were able to proceed with laminectomy. The wound was copiously irrigated and suctioned dry as had been done periodically throughout the case. I performed a laminectomy with a combination of curettes and a high-speed bur and Kerrison rongeurs. A small medial facetectomy was performed again further access. A partial foraminotomy was also performed. Portions of the ligamentum flavum were taken down to expose the dura and traversing nerve root. I was able to mobilize the traversing nerve root and gain access to the disc space. Note was made of obvious compression from the disc. There are number of extruded disc fragments that were causing further compression of the traversing nerve root. These were removed. This gave some relief of the nerve root as well. Protecting the soft tissue structures, a small annulotomy was established. I was able to perform discectomy and remove any extruded disc fragments and any loose fragments from within the disc itself. There is some disc desiccation noted. I tried to preserve the disc annulus that appeared stable. There were no further extruded fragments noted. There is no evidence of dural tear or leak. Good hemostasis maintained. The wound was copiously irrigated and suctioned dry. Good decompression and discectomy was noted. We were able to proceed with closure. The fascia was closed for a watertight closure. The subcuticular tissue was closed with absorbable suture. The wound was cleaned and dried and dressed with the appropriate dressing. The drapes were broken down. The patient was gently rolled back onto their hospital bed being careful to maintain their cervical spine and good neutral alignment and position. They were woken up by anesthesia, extubated, and brought to the rec overy room in good stable condition. The patient will be admitted to the hospital for observation and for appropriate postoperative care, medical management and monitoring. We will continue to follow them closely about the postoperative course.
[2019-04-04 16:03] LABS: Glucose,Whole Blood 190 mg/dL (75-99)
[2019-04-04 16:55] LABS: Glucose,Whole Blood 207 mg/dL (75-99)
[2019-04-04 21:07] LABS: Glucose,Whole Blood 164 mg/dL (75-99)
[2019-04-04] MEDS: ALBUTEROL NEBULIZED 2.5 MG/3 ML INHALATION PRN (21:14)
[2019-04-04] MEDS: oxyCODONE-APAP 10-325MG 1 EACH TAB PO PRN (23:52)
[2019-04-04] MEDS: ATORVASTATIN 20 MG TAB PO SCH (23:52)
[2019-04-05] MEDS: HYDROmorphone 2 MG/ML 1 ML SYRINGE IVP PRN (03:43)
[2019-04-05 05:53] LABS: Glucose,Whole Blood 229 mg/dL (75-99)
[2019-04-05] MEDS: INSULIN ASPART (NovoLOG) 100 UNIT/ML VIAL SQ SCH ×5 (06:29→21:20)
[2019-04-05] MEDS: PANTOPRAZOLE 40 MG TABLET PO SCH (06:30)
[2019-04-05] MEDS: REPAGLINIDE 1 MG TAB PO SCH ×3 (06:30→17:44)
[2019-04-05 07:28] LABS: Anisocytosis Slight; Basophils % (A) 0 %; Eosinophils # (A) 0.1 k/uL (0-0.7); Eosinophils % (A) 1 %; HCT 36.1 % (39.0-53.0); HGB 10.7 gm/dL (13.0-17.5); Hypochromasia Moderate; Lymphocytes # (A) 0.6 k/uL (1.0-4.8); Lymphocytes % (A) 4 %; MCH 26.2 pg (25.0-35.0); MCHC 29.6 g/dL (31.0-37.0); MCV 88.7 fL (80.0-100.0); Mean Platelet Volume 7.2; Monocytes # (A) 0.3 k/uL (0-1.0); Monocytes % (A) 2 %; Neutrophils # (A) 13.2 k/uL (1.3-7.7); Neutrophils % (A) 92 %; Platelet Count 180 k/uL (150-450); RBC 4.07 m/uL (4.30-5.90); RDW 17.3 % (11.5-15.5); WBC 14.3 k/uL (3.8-10.6)
[2019-04-05 07:48] LABS: Calcium 8.4 mg/dL (8.4-10.2); Potassium 3.9 mmol/L (3.5-5.1)
--- NOTE | 2019-04-05 07:55 | P.PN ---
Subjective On-call hospitalist covering for Dr. Parra This is a pleasant 83 years old male with past medical history of COPD, diabetes mellitus, GERD, hypertension, sleep apnea on CPAP/BiPAP, coronary artery disease status post cardiac catheterization and stent placement. 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 He presents with intractable back pain secondary to lumbar stenosis Patient is hemodynamically stable. Labs reviewed showing leukocytosis of 18.3 K, and creatinine is 1.1, glucose is 2:15 2-74. 04/04/2019 Patient is seen today in the morning, he is lying in bed not in distress however is still complaining of from significant pain in his lower back. Patient is planned to have surgery for his spine today at 1: 30 p.m., pulmonary and cardiology preoperative evaluation has been requested. Hemodynamically stable. Showing doubly bc of 17.9 k which is trending down slowly. creatinine is 1.3, sugars controlled, potassium 4.2 and sodium 141 Discussed with staff 04/05/2019 Patient is a status post L3 to 4 laminectomy and decompression surgery with discectomy. Today is postoperative day #1. His pain is controlled with IV fentanyl per Orthopedic team. He has some minimal pain at the surgical time side. He can most his lower extremity with no difficulties. Vitas looks stable, he is saturating 92% on 4 L oxygen via nasal cannula, respiratory rate 16. He still has Mckeon catheter with good urine output. Leukocytosis improving down to 14.3 K, electrolytes and creatinine are within normal limits. He is on antibiotics cefazolin per surgery team. We'll defer the surgery team the need for anticoagulation for DVT prophylaxis as he has recent surgery of the back. Also we'll defer to the surgery team when he is ready to start physical therapy. Discussed with staff Objective - Vital Signs Vital signs: Vital Signs Temp 98 F 04/04/19 20:00 Pulse 83 04/05/19 04:00 Resp 16 04/05/19 04:00 BP 111/53 04/05/19 04:00 Pulse Ox 92 L 04/05/19 04:00 Intake & Output 04/04/19 04/05/19 04/05/19 18:59 06:59 18:59 Intake Total 720 180 Output Total 200 1900 Balance 520 -1900 180 Weight 116 kg 113 kg Intake: IV 720 Invasive Line 4 20 Oral 180 Output: Urine 150 1900 Estimated Blood Loss 50 Other: Voiding Method Indwelling Catheter Indwelling Catheter # Voids 0 # Bowel Movements 0 - Exam GENERAL: The patient is alert and oriented x3, not in any acute distress. Well developed, well nourished. HEENT: Pupils are round and equally reacting to light. EOMI. No scleral icterus. No conjunctival pallor. Normocephalic, atraumatic. No pharyngeal erythema. No thyromegaly. CARDIOVASCULAR: S1 and S2 present. No murmurs, rubs, or gallops. PULMONARY: Chest is clear to auscultation, no wheezing or crackles. ABDOMEN: Soft, nontender, nondistended, normoactive bowel sounds. No palpable organomegaly. MUSCULOSKELETAL: No joint swelling or deformity. EXTREMITIES: No cyanosis, clubbing, or pedal edema. NEUROLOGICAL: Gross neurological examination did not reveal any focal deficits. SKIN: No rashes. no petechiae. - Labs CBC & Chem 7: 04/05/19 06:54 04/05/19 06:54 Labs: Abnormal Lab Results - Last 24 Hours (Table) 04/04/19 04/04/19 04/04/19 Range/Units 11:49 13:45 16:01 WBC (3.8-10.6) k/uL RBC (4.30-5.90) m/uL Hgb (13.0-17.5) gm/dL Hct (39.0-53.0) % MCHC (31.0-37.0) g/dL RDW (11.5-15.5) % Neutrophils # (1.3-7.7) k/uL Lymphocytes # (1.0-4.8) k/uL Carbon Dioxide (22-30) mmol/L BUN (9-20) mg/dL Glucose (74-99) mg/dL POC Glucose (mg/dL) 229 H 234 H 190 H (75-99) mg/dL 04/04/19 04/04/19 04/05/19 Range/Units 16:53 21:02 05:52 WBC (3.8-10.6) k/uL RBC (4.30-5.90) m/uL Hgb (13.0-17.5) gm/dL Hct (39.0-53.0) % MCHC (31.0-37.0) g/dL RDW (11.5-15.5) % Neutrophils # (1.3-7.7) k/uL Lymphocytes # (1.0-4.8) k/uL Carbon Dioxide (22-30) mmol/L BUN (9-20) mg/dL Glucose (74-99) mg/dL POC Glucose (mg/dL) 207 H 164 H 229 H (75-99) mg/dL 04/05/19 04/05/19 Range/Units 06:54 06:54 WBC 14.3 H (3.8-10.6) k/uL RBC 4.07 L (4.30-5.90) m/uL Hgb 10.7 L (13.0-17.5) gm/dL Hct 36.1 L (39.0-53.0) % MCHC 29.6 L (31.0-37.0) g/dL RDW 17.3 H (11.5-15.5) % Neutrophils # 13.2 H (1.3-7.7) k/uL Lymphocytes # 0.6 L (1.0-4.8) k/uL Carbon Dioxide 31 H (22-30) mmol/L BUN 29 H (9-20) mg/dL Glucose 229 H (74-99) mg/dL POC Glucose (mg/dL) (75-99) mg/dL Assessment and Plan Assessment: Severe lumbar stenosis with intractable back pain, status post L3-4 laminectomy and decompression surgery with discectomy. Recent history of new diagnosis of lung cancer with mediastinal lymphadenopathy with squamous cell cancer History of coronary artery disease, status post stent Sleep apnea on CPAP/BiPAP COPD, not in acute exacerbation Diabetes mellitus GERD Hypertension Plan: This is a pleasant 83 years old male who presents with severe back pain and lumbar stenosis. Continue with postop care as per surgery team. DVT prophylaxis and physical therapy evaluation as per surgery team..Also cardiology and pulmonary team are following the case, and already evaluated the patient. Continue with oral Lasix, pain management. Labs and medication were reviewed.. Continue same treatment. Continue with symptomatic treatment. Resume home medication. Monitor lytes and vitals. DVT and GI prophylaxis. Further recommendations of the clinical course of the patie nt DVT prophylaxis: No antegrade lesion in view of patient going for back surgery, we'll defer to orthopedic team GI Prophylaxis: Pepcid PT/OT: Pending Prognosis is guarded
[2019-04-05] MEDS ORDERED: FAMOTIDINE 20 MG/2 ML VIAL IV SCH (09:00)
[2019-04-05] MEDS: OXYMETAZOLINE 0.05% NASL SPRAY 1 SPRAY BOTTLE NASAL SCH ×2 (09:38→20:51)
[2019-04-05] MEDS: GABAPENTIN 300 MG CAP PO SCH ×4 (09:38→20:50)
[2019-04-05] MEDS: CHOLECALCIFEROL 1,000 UNIT TAB PO SCH (09:38)
[2019-04-05] MEDS: FUROSEMIDE 40 MG TAB PO SCH ×2 (09:38→20:50)
[2019-04-05] MEDS: METOPROLOL TARTRATE 50 MG TAB PO SCH (09:38)
[2019-04-05] MEDS: oxyCODONE-APAP 10-325MG 1 EACH TAB PO PRN ×2 (09:45→17:44)
--- NOTE | 2019-04-05 09:51 | P.PN ---
Progress Note - Text Progress Note Date: 04/05/19 Postoperative day #1 Patient is seen and examined today at bedside. The patient has some pain around the surgical site as expected. Pain is being controlled with medication. He says his legs are doing very well. He feels his legs have made significant improvement with surgery. He has been able to move his legs nicely. He has not yet been out of bed. Physical Exam Afebrile with stable vital signs Abdomen is soft nontender. Chest has good excursion deep and space expiration The incision site is clean dry and intact. No erythema there is no purulence. Dressings clear. Extremities have not had neurologic change from prior to surgery. He is able to flex and extend his hip and his knee well. He has sustained dorsal flexion plantar flexion and extensor hallucis longus intact. Calves and thighs were soft nontender without evidence of DVT. Assessment/Plan Postoperative day #1 status post laminectomy decompression and discectomy L3 4 for his disc herniation L3 4 with right lower extremity radiculopathy and inability to ambulate The patient is doing very nicely thus far in terms of his leg pain. He feels his leg is significant improved. He has some pain at his low back from the surgical site. Patient is progressing as expected from the surgery in terms of pain. We will continue to increase the patient's mobilization with therapy. We will continue pain control with oral or IV medications. We'll continue to follow patient closely. From an orthopedic spine standpoint it is okay for the patient to be discharged when he is cleared with medicine and safe with his mobilization.
[2019-04-05 11:42] LABS: Glucose,Whole Blood 477 mg/dL (75-99)
[2019-04-05 14:02] LABS: Glucose,Whole Blood 533 mg/dL (75-99)
[2019-04-05] MEDS: SODIUM CHLORIDE 0.9% 1,000 ML IV SCH ×3 (14:11→22:01)
--- NOTE | 2019-04-05 15:10 | XR ---
EXAMINATION TYPE: XR chest 1V DATE OF EXAM: 04/05/2019 CLINICAL HISTORY: Difficulty breathing progress study. TECHNIQUE: Single AP portable upright view of the chest is obtained. COMPARISON: Chest x-ray from 5 days earlier. FINDINGS: Persistent elevated right hemidiaphragm and right hilar consolidation. Chronic parenchymal changes bilaterally. Cardiac silhouette size is stable and mildly enlarged. Osseous structures are d emineralized. Degenerative change bilateral glenohumeral joints. IMPRESSION: Overall stable findings, chronic parenchymal changes and mild cardiomegaly with persist ent right hilar acute infiltrate and/or atelectasis
--- NOTE | 2019-04-05 15:21 | P.PN ---
Subjective Progress Note Date: 04/05/19 Principal diagnosis: Intractable back pain secondary to lumbar stenosis, epistaxis status post packing to the right nare This is a very pleasant 83-year-old gentleman who follows with Dr. Parra as his primary care physician. He has a history of gastroesophageal reflux diseas e, diabetes John, hypothyroidism, hyperlipidemia, coronary artery disease with previous stent placement, peripheral neuropathy. He also has a history of chronic obstructive pulmonary disease from chronic tobacco dependence. He follows with Dr. Cortés in our office. 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 A previous PET scan had not showed significant uptake in the lymph nodes however upon further review there was some questionable areas of uptake in the patient had undergone a mediastinoscopy on 03/22/[address] Finley. The notes that were biopsied were negative for metastasis. The plan is for eventual surgical intervention of the squamous cell carcinoma. The patient ended up here in the emergency room on 03/27/2019 with intractable back pain and epistaxis. His right Black was packed. 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 No evidence of acute fracture. No dislocations. MRI of the spine revealed broad-based central disc herniation and heterotrophic changes the facets and ligamentum payphone of L3-L4 results in severe canal stenosis with bilateral foraminal encroachment. No evidence of metastatic disease. He is being followed by orthopedics. The plan is for interventional pain management with epidural steroid injections for now. We are asked to see the patient today based on increasing shortness of breath. He does have a Ventimask in place with 35% FiO2 due to the nasal packing and inability to tolerated nasal cannula. He does have a temperature of 100.6 axillary. Chest x-ray showing some worsening infiltrate in the right midlung read as possible pneumonia. Current location of the squamous cell carcinoma. White count 14.5. Hemoglobin 11.8. Creatinine 1.77. He is currently on albuterol and IV Solu-Medrol. Reevaluated today on 04/01/2019, continues to have some back pain, he will be seen by the pain specialist in the morning for possible epidural injections, continues to have nasal packings done bilaterally. These would be addressed by ENT. Overall the patient is better, pain seems to be better controlled. Labs showed that it is not a 14 hemoglobin of 12 basic metabolic profile is normal renal profile is abnormal with creatinine of 1.42. Blood sugar is high needs to be better controlled by the admitting physician. On 04/02/2019 patient seen in follow-up on selective care unit. He is awake and alert, in no acute distress, patient has a right nare packed, today's labs have been reviewed, and hemoglobin is 12.4, white blood cell count is 20.9, electrolytes within normal limits, BUN is 45, creatinine is 1.24. Denies any difficulty breathing, he is on 35% Ventimask, with a pulse ox of 95%, signs are stable, denies shortness of breath, he had epidural injection for intractable low back pain. He is on oral pain medications, and he also receives IV Solu- Medrol at 60 mg every 12 hours, Dr. Jensen is following. No other issues overnight. The patient is seen today 04/03/2018 in follow-up on the selective care unit. He is awake and alert in no acute distress. He is still having ongoing issues with low back pain and pain down his right hip and right lower extremity. He did undergo lumbar epidural steroid injection yesterday. No worsening shortness of breath. He remains on a Ventimask due to the packing in place to the right near. That's to be removed today per ENT. White count 18.3. Hemoglobin 12.2. Creatinine 1.16. Remains on bronchodilators. Oral diuretics. Dilaudid and Percocet for pain control. The patient is seen today 04/04/2019 in follow-up on the selective care unit. He is currently resting comfortably in bed. Awake and alert in no acute distress. He has had ongoing issues with right hip and lower extremity pain. Plan is for surgery today with orthopedics. White count 17.9. Hemoglobin 12.0. Creatinine 1.30. He is continued on bronchodilators. The patient is seen today 04/05/2019 in follow-up on the selective care unit. He is awake and alert in no acute distress. He is maintaining good O2 saturations in the high 90s on 4 L/m per nasal cannula. His been afebrile. Hemodynamically stable. Chest x-ray reveals stable findings. There is chronic parenchymal changes and mild cardiomegaly with persistent right hilar acute infiltrate/atelectasis. He did undergo laminectomy and decompression of L3 and L4. Discectomy for decompression L3-L4 yesterday. His low back pain and right lower extremity pain is much improved. Blood culture reveals no growth. White count 14.3. Hemoglobin 10.7. Creatinine 1.13. Objective - Vital Signs Vital signs: Vital Signs Temp 97.8 F 04/05/19 08:00 Pulse 96 04/05/19 08:00 Resp 18 04/05/19 08:00 BP 95/53 04/05/19 08:00 Pulse Ox 98 04/05/19 08:00 Intake & Output 04/04/19 04/05/19 04/05/19 18:59 06:59 18:59 Intake Total 720 180 Output Total 200 1900 Balance 520 -1900 180 Weight 116 kg 113 kg Intake: IV 720 Invasive Line 4 20 Oral 180 Output: Urine 150 1900 Estimated Blood Loss 50 Other: Voiding Method Indwelling Catheter Indwelling Catheter Indwelling Catheter # Voids 0 # Bowel Movements 0 - Exam GENERAL EXAM: Alert, pleasant, 83-year-old male patient on 4 L nasal cannula, fairly comfortable in no acute distress. HEAD: Normocephalic/atraumatic. EYES: Normal reaction of pupils, equal size. Conjunctiva pink, sclera white. NOSE: Clear with pink turbinates. THROAT: No erythema or exudates. NECK: No masses, no JVD, no thyroid enlargement, no adenopathy. CHEST: No chest wall deformity. Symmetrical expansion. LUNGS: Equal air entry with crackles in the right lung base. CVS: Regular rate and rhythm, normal S1 and S2, no gallops, no murmurs, no rubs ABDOMEN: Soft, nontender. No hepatosplenomegaly, normal bowel sounds, no guarding or rigidity. EXTREMITIES: No clubbing, no edema, no cyanosis, 2+ pulses and upper and lower extremities. MUSCULOSKELETAL: Muscle strength and tone normal. SPINE: No scoliosis or deformity SKIN: No rashes CENTRAL NERVOUS SYSTEM: No focal deficits, tone is normal in all 4 extremities. PSYCHIATRIC: Alert and oriented -3. Appropriate affect. Intact judgment and insight. - Labs CBC & Chem 7: 04/05/19 06:54 04/05/19 06:54 Labs: Abnormal Lab Results - Last 24 Hours (Table) 04/04/19 04/04/19 04/04/19 Range/Units 16:01 16:53 21:02 WBC (3.8-10.6) k/uL RBC (4.30-5.90) m/uL Hgb (13.0-17.5) gm/dL Hct (39.0-53.0) % MCHC (31.0-37.0) g/dL RDW (11.5-15.5) % Neutrophils # (1.3-7.7) k/uL Lymphocytes # (1.0-4.8) k/uL Carbon Dioxide (22-30) mmol/L BUN (9-20) mg/dL Glucose (74-99) mg/dL POC Glucose (mg/dL) 190 H 207 H 164 H (75-99) mg/dL 04/05/19 04/05/19 04/05/19 Range/Units 05:52 06:54 06:54 WBC 14.3 H (3.8-10.6) k/uL RBC 4.07 L (4.30-5.90) m/uL Hgb 10.7 L (13.0-17.5) gm/dL Hct 36.1 L (39.0-53.0) % MCHC 29.6 L (31.0-37.0) g/dL RDW 17.3 H (11.5-15.5) % Neutrophils # 13.2 H (1.3-7.7) k/uL Lymphocytes # 0.6 L (1.0-4.8) k/uL Carbon Dioxide 31 H (22-30) mmol/L BUN 29 H (9-20) mg/dL Glucose 229 H (74-99) mg/dL POC Glucose (mg/dL) 229 H (75-99) mg/dL 04/05/19 04/05/19 Range/Units 11:40 14:00 WBC (3.8-10.6) k/uL RBC (4.30-5.90) m/uL Hgb (13.0-17.5) gm/dL Hct (39.0-53.0) % MCHC (31.0-37.0) g/dL RDW (11.5-15.5) % Neutrophils # (1.3-7.7) k/uL Lymphocytes # (1.0-4.8) k/uL Carbon Dioxide (22-30) mmol/L BUN (9-20) mg/dL Glucose (74-99) mg/dL POC Glucose (mg/dL) 477 H 533 H (75-99) mg/dL Microbiology - Last 24 Hours (Table) 04/04/19 10:49 Blood Culture - Preliminary Blood No Growth after 24 hours Assessment and Plan Assessment: Impression: #1 Intractable lower back pain due to severe canal stenosis with bilateral foraminal encroachment of L3 and L4. Status post epidural injection on 04/02/2019. Status post laminectomy and discectomy of L3-L4 on 04/04/2019. Pain has improved. #2 Epistaxis requiring packing of the right nare. #3 Dyspnea secondary to above and right lung infiltrate. 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 Recent mediastinal endoscopy with negative lymph nodes. #5 PET scan showing some uptake in mediastinal lymph nodes. #6 Diabetes mellitus. #7 Diabetic neuropathy. #8 Gastric esophageal reflux disease. #9 History of coronary disease with previous stent placement. #10 Hypothyroidism. #11 Hyperlipidemia. Plan: The patient was seen and evaluated by Dr. Clayton. He is stable from the pulmonary standpoint. We'll continue to follow. I, the cosigning physician, performed a history & physical examination on the patient. Lungs sounds with few scattered rhonchi more so on the right lung. Maintaining good O2 saturations in the 90s on 4 L/m per nasal cannula. I discussed the assessment and plan of care with my nurse practitioner, Yesica Vanegas. I attest to the above note as dictated by her.
[2019-04-05 16:32] LABS: Glucose,Whole Blood 283 mg/dL (75-99)
[2019-04-05] MEDS: ATORVASTATIN 20 MG TAB PO SCH (20:50)
[2019-04-05] MEDS: FAMOTIDINE 20 MG TAB PO SCH (20:51)
[2019-04-05 21:03] LABS: Glucose,Whole Blood 144 mg/dL (75-99)
[2019-04-05 23:12] VITALS: RESP 18
[2019-04-06 06:49] LABS: Glucose,Whole Blood 210 mg/dL (75-99)
[2019-04-06] MEDS: INSULIN ASPART (NovoLOG) 100 UNIT/ML VIAL SQ SCH ×4 (07:11→12:02)
[2019-04-06] MEDS: PANTOPRAZOLE 40 MG TABLET PO SCH (07:11)
[2019-04-06] MEDS: REPAGLINIDE 1 MG TAB PO SCH ×2 (07:11→12:02)
[2019-04-06 07:27] LABS: Anisocytosis Slight; Basophils % (A) 0 %; Eosinophils # (A) 0.1 k/uL (0-0.7); Eosinophils % (A) 1 %; HCT 38.2 % (39.0-53.0); HGB 11.3 gm/dL (13.0-17.5); Hypochromasia Moderate; Lymphocytes # (A) 0.8 k/uL (1.0-4.8); Lymphocytes % (A) 5 %; MCH 26.3 pg (25.0-35.0); MCHC 29.7 g/dL (31.0-37.0); MCV 88.8 fL (80.0-100.0); Mean Platelet Volume 7.8; Monocytes # (A) 0.4 k/uL (0-1.0); Monocytes % (A) 3 %; Neutrophils # (A) 12.6 k/uL (1.3-7.7); Neutrophils % (A) 90 %; Platelet Count 208 k/uL (150-450); RDW 17.2 % (11.5-15.5)
[2019-04-06 07:39] LABS: Calcium 8.5 mg/dL (8.4-10.2); Potassium 4.1 mmol/L (3.5-5.1)
[2019-04-06 08:39] VITALS: BP 106/54; PULSE 89; TEMP 96.1
[2019-04-06] MEDS: FUROSEMIDE 40 MG TAB PO SCH (08:40)
[2019-04-06] MEDS: GABAPENTIN 300 MG CAP PO SCH ×2 (08:40→12:02)
[2019-04-06] MEDS: METOPROLOL TARTRATE 50 MG TAB PO SCH (08:40)
[2019-04-06] MEDS: FAMOTIDINE 20 MG TAB PO SCH (08:40)
[2019-04-06] MEDS: CHOLECALCIFEROL 1,000 UNIT TAB PO SCH (08:40)
[2019-04-06] MEDS: OXYMETAZOLINE 0.05% NASL SPRAY 1 SPRAY BOTTLE NASAL SCH (08:40)
[2019-04-06 11:37] VITALS: BMI 34.6
[2019-04-06 11:59] LABS: Glucose,Whole Blood 236 mg/dL (75-99)
--- NOTE | 2019-04-06 12:48 | P.PN ---
Progress Note - Text Progress Note Date: 04/06/19 Postoperative day #2 Patient is seen and examined today at bedside. The patient has some pain around the surgical site as expected, but this is well controlled. The patient is very happy with his improvement in his right lower extremity symptoms since his surgery Vitalal signs Abdomen is soft nontender. Chest has good excursion deep and space expiration. His nosebleeds have stopped The incision site is clean dry and intact. No erythema there is no purulence. He is able to move his legs but still has generalized weakness Extremities have not had neurologic change from prior to surgery. Calves and thighs were soft nontender without evidence of DVT. Assessment/Plan Postoperative day #2 status post laminectomy decompression with discectomy for disc herniation at L3 4 with severe right lower extremity radiculopathy, the patient is improving very well with his surgery Patient is progressing very well from the surgery in terms of his pain in his right lower extremity. We will continue to increase the patient's mobilization with therapy. He has some generalized weakness and will need some help with his mobilization and will likely require rehab or care home post discharge. From an orthopedic spine standpoint is okay for the patient be discharged whenever he stable with medicine service. I plan see him back in approximately 2 weeks' time or sooner if he is having any problems. We will continue pain control with oral or IV medications. We'll continue to follow patient closely.
--- NOTE | 2019-04-06 14:36 | P.DS ---
Providers Date of admission: 03/29/19 12:57 Attending physician: Miguel Parra Consults: 03/27/19 16:25 Consult Physician Stat Consulting Provider: Isaac Lassiter Consult Reason/Comments: intractable hip pain Do you want consulting provider notified?: Yes 03/27/19 18:21 Consult Physician Stat Consulting Provider: Luis Kim Consult Reason/Comments: posterior epistaxis, posterior packing Do you want consulting provider notified?: Yes, Notify in am 03/31/19 10:21 Consult Physician Routine Consulting Provider: Eve Jensen Consult Reason/Comments: lumbar surgery evaluation Do you want consulting provider notified?: Yes 03/31/19 10:22 Consult Physician Routine Consulting Provider: Anesthesia,Services Consult Reason/Comments: lumbar epidural Do you want consulting provider notified?: Yes 03/31/19 10:40 Consult Physician Routine Consulting Provider: Panfilo Cortés Consult Reason/Comments: sob, lung cancer, requriing o2 Do you want consulting provider notified?: Yes 03/31/19 10:45 Consult Physician Routine Consulting Provider: Yenni Rivera Consult Reason/Comments: tachy, sob Do you want consulting provider notified?: Already Contacted 04/02/19 17:03 Consult Physician Routine Consulting Provider: Guero Adame Consult Reason/Comments: rt leg severe pain r/o arterial obstruction Do you want consulting provider notified?: Yes 04/03/19 11:52 Consult Physician Routine Consulting Provider: Panfilo Stark Consult Reason/Comments: Unrelieved pain post steroid injection Do you want consulting provider notified?: Yes 04/03/19 14:09 Consult Physician Routine Consulting Provider: Yenni Rivera Consult Reason/Comments: Clearance for surgery Do you want consulting provider notified?: Yes Primary care physician: Miguel Parra [facility] Course: Diagnoses: Severe lumbar stenosis with intractable back pain, status post L3-4 laminectomy and decompression surgery with discectomy. 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 He presents with intractable back pain secondary to lumbar stenosis. Patient is status post L3-L4 laminectomy and decompression surgery with discectomy. Postoperatively pain is significantly resolved, patient could move his lower extremity without pain. He has minimal pain at the surgical site in the lower back. However patient feels generally weak and he would benefit from ECF for rehab therapy. Also patient was diagnosed with lung cancer and his been evaluated by pulmonology recommended outpatient follow-up for repeat and PET scan before referring him for possible surgery of the lung cancer with Dylan Lenz Also patient has been treated with antibiotics for infiltrate in the right lung, his leukocytosis is improving and today is down to 14 K, patient denies chest pain or dyspnea or coughing. The day of discharge also patient denies chest pain or dyspnea. No abdominal pain. No nausea vomiting. No change in urine or bowel habits. He is tolerating diet well. No fever. Patient was eager to be discharged today. Patient was cleared for discharge by or consult us including Dr. Jensen, pulmonary, cardiology, Problems and management plan were discussed with the patient and he verbalized understanding and acceptance Patient was found stable and can be discharged home however he needs follow-up as an outpatient. Patient was instructed to follow up with PCP within one week and patient agrees. Appointments were made for the patient's with his piped pocket machine operator, Dr. Jensen and the pain clinic. Patient agrees with the appointments and the timing and sessile follow-up. Also patient was instructed to follow up with Dr. Tushar Richardson surgeon as he might need surgery for his lung Cancer and he agrees Gen: patient is a AAOx3, no distress. Generally weak CVS: S1-S2, RRR, no murmur Lungs: B/L CTA, no wheezing Abdomen: soft, no distention, no tenderness, positive bowel sounds Extremity: no leg edema or induration musculoskeletal: Mild tenderness at the surgical site, expected. A dressing is in place Time spent more than 35 minutes Patient Condition at Discharge: Fair Plan - Discharge Summary Discharge Rx Participant: No New Discharge Prescriptions: New Oxymetazoline 0.05% Nasl [place] [Afrin 0.05% Nasal [place]] 2 spray NASAL BID bottle Amoxicillin/Potassium Clav [Augmentin 875-125 Tablet] 1 tab PO Q12HR 5 Days #10 tab HYDROcodone/APAP 5-325MG [[place] 5-325] 1 each PO Q8HR PRN #8 tab PRN Reason: Moderate Pain Acetaminophen Tab [Tylenol] 650 mg PO Q6HR PRN tab PRN Reason: Fever and/ or Mild Pain Continue Simvastatin [Zocor] 40 mg PO HS Omeprazole [PriLOSEC] 20 mg PO DAILY Metoprolol Tartrate [Lopressor] 50 mg PO DAILY Gabapentin [Neurontin] 300 mg PO TID Albuterol Nebulized [Ventolin Nebulized] 2.5 mg INHALATION RT-QID PRN PRN Reason: Shortness Of Breath Cholecalciferol [Vitamin D3 (25 Mcg = 1000 Iu)] 1,000 unit PO DAILY INSULIN LISPRO (HumaLOG) [humaLOG] 20 units SQ AC-TID Furosemide [Lasix] 40 mg PO BID Repaglinide 1 mg PO TID Discontinued Aspirin [Adult Low Dose Aspirin EC] 81 mg PO DAILY Fexofenadine HCl [Mercedes Allergy] 180 mg PO DAILY HYDROcodone/APAP 7.5-325MG [[place] 7.5-325] 1 tab PO QID PRN PRN Reason: Moderate Pain Neuro B 800mg 800 mg PO DAILY Discharge Medication List Omeprazole [PriLOSEC] 20 mg PO DAILY 06/11/14 [History] Simvastatin [Zocor] 40 mg PO HS 06/11/14 [History] Gabapentin [Neurontin] 300 mg PO TID 10/16/17 [History] Metoprolol Tartrate [Lopressor] 50 mg PO DAILY 10/16/17 [History] Albuterol Nebulized [Ventolin Nebulized] 2.5 mg INHALATION RT-QID PRN 11/02/18 [History] Cholecalciferol [Vitamin D3 (25 Mcg = 1000 Iu)] 1,000 unit PO DAILY 11/02/18 [History] INSULIN LISPRO (HumaLOG) [humaLOG] 20 units SQ AC-TID 11/03/18 [History] Furosemide [Lasix] 40 mg PO BID 03/27/19 [History] Repaglinide 1 mg PO TID 03/27/19 [History] Acetaminophen Tab [Tylenol] 650 mg PO Q6HR PRN tab 04/06/19 [Rx] Amoxicillin/Potassium Clav [Augmentin 875-125 Tablet] 1 tab PO Q12HR 5 Days #10 tab 04/06/19 [Rx] HYDROcodone/APAP 5-325MG [[place] 5-325] 1 each PO Q8HR PRN #8 tab 04/06/19 [Rx] Oxymetazoline 0.05% Nasl [place] [Afrin 0.05% Nasal [place]] 2 spray NASAL BID bottle 04/06/19 [Rx] Follow up Appointment(s)/Referral(s): Panfilo Cortés MD [STAFF PHYSICIAN] - 04/23/19 2:15 pm (Tuesday) [facility], [NON-STAFF] - Eve Jensen DO [Doctor of Osteopathic Medicine] - 04/24/19 10:00 am (Tuesday with Lamont Comer PA-C ) Miguel Parra MD [Primary Care Provider] - 1 Week Dylan Finley MD [STAFF PHYSICIAN] - 1 Week [facility] [NON-STAFF] - 04/26/19 12:30 pm (Dr. Galo) Luis Kim MD [STAFF PHYSICIAN] - 1 Week () Patient Instructions/Handouts: Nosebleed (ED), Lumbar Disc Herniation (DC), Epidural Steroid Injection (DC) Activity/Diet/Wound Care/Special Instructions: Keep site clean. May shower with waterproof Tegaderm intact. Do not soak in a tub. After 72 hours postoperatively, patient May remove dressing and then may shower with area uncovered. Leave Steri-Strips intact and allow them to fray off on their own. May ambulate as tolerated. Avoid heavy or rigorous activity. No repetitive bending twisting or lifting. No overhead work. Discharge/Stand Alone Forms: [facility] Diary, [facility] Instructions Discharge Disposition: TRANSFER TO SNF/ECF
--- NOTE | 2019-04-06 15:25 | P.PN ---
Subjective Progress Note Date: 04/06/19 Principal diagnosis: Intractable back pain secondary to lumbar stenosis, epistaxis status post packing to the right nare This is a very pleasant 83-year-old gentleman who follows with Dr. Parra as his primary care physician. He has a history of gastroesophageal reflux diseas e, diabetes John, hypothyroidism, hyperlipidemia, coronary artery disease with previous stent placement, peripheral neuropathy. He also has a history of chronic obstructive pulmonary disease from chronic tobacco dependence. He follows with Dr. Cortés in our office. 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 A previous PET scan had not showed significant uptake in the lymph nodes however upon further review there was some questionable areas of uptake in the patient had undergone a mediastinoscopy on 03/22/[address] Finley. The notes that were biopsied were negative for metastasis. The plan is for eventual surgical intervention of the squamous cell carcinoma. The patient ended up here in the emergency room on 03/27/2019 with intractable back pain and epistaxis. His right Black was packed. 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 No evidence of acute fracture. No dislocations. MRI of the spine revealed broad-based central disc herniation and heterotrophic changes the facets and ligamentum payphone of L3-L4 results in severe canal stenosis with bilateral foraminal encroachment. No evidence of metastatic disease. He is being followed by orthopedics. The plan is for interventional pain management with epidural steroid injections for now. We are asked to see the patient today based on increasing shortness of breath. He does have a Ventimask in place with 35% FiO2 due to the nasal packing and inability to tolerated nasal cannula. He does have a temperature of 100.6 axillary. Chest x-ray showing some worsening infiltrate in the right midlung read as possible pneumonia. Current location of the squamous cell carcinoma. White count 14.5. Hemoglobin 11.8. Creatinine 1.77. He is currently on albuterol and IV Solu-Medrol. Reevaluated today on 04/01/2019, continues to have some back pain, he will be seen by the pain specialist in the morning for possible epidural injections, continues to have nasal packings done bilaterally. These would be addressed by ENT. Overall the patient is better, pain seems to be better controlled. Labs showed that it is not a 14 hemoglobin of 12 basic metabolic profile is normal renal profile is abnormal with creatinine of 1.42. Blood sugar is high needs to be better controlled by the admitting physician. On 04/02/2019 patient seen in follow-up on selective care unit. He is awake and alert, in no acute distress, patient has a right nare packed, today's labs have been reviewed, and hemoglobin is 12.4, white blood cell count is 20.9, electrolytes within normal limits, BUN is 45, creatinine is 1.24. Denies any difficulty breathing, he is on 35% Ventimask, with a pulse ox of 95%, signs are stable, denies shortness of breath, he had epidural injection for intractable low back pain. He is on oral pain medications, and he also receives IV Solu- Medrol at 60 mg every 12 hours, Dr. Jensen is following. No other issues overnight. The patient is seen today 04/03/2018 in follow-up on the selective care unit. He is awake and alert in no acute distress. He is still having ongoing issues with low back pain and pain down his right hip and right lower extremity. He did undergo lumbar epidural steroid injection yesterday. No worsening shortness of breath. He remains on a Ventimask due to the packing in place to the right near. That's to be removed today per ENT. White count 18.3. Hemoglobin 12.2. Creatinine 1.16. Remains on bronchodilators. Oral diuretics. Dilaudid and Percocet for pain control. The patient is seen today 04/04/2019 in follow-up on the selective care unit. He is currently resting comfortably in bed. Awake and alert in no acute distress. He has had ongoing issues with right hip and lower extremity pain. Plan is for surgery today with orthopedics. White count 17.9. Hemoglobin 12.0. Creatinine 1.30. He is continued on bronchodilators. The patient is seen today 04/05/2019 in follow-up on the selective care unit. He is awake and alert in no acute distress. He is maintaining good O2 saturations in the high 90s on 4 L/m per nasal cannula. His been afebrile. Hemodynamically stable. Chest x-ray reveals stable findings. There is chronic parenchymal changes and mild cardiomegaly with persistent right hilar acute infiltrate/atelectasis. He did undergo laminectomy and decompression of L3 and L4. Discectomy for decompression L3-L4 yesterday. His low back pain and right lower extremity pain is much improved. Blood culture reveals no growth. White count 14.3. Hemoglobin 10.7. Creatinine 1.13. The patient is seen today 04/06/2019 in follow-up on the selective care unit. He denies any shortness of breath, cough or congestion. No pulmonary complaints. He is working with physical therapy. Currently sitting up at the bedside. His pain is better controlled. Blood cultures reveal no growth. White count 14.0. Hemoglobin 11.3. Creatinine 1.23. Objective - Vital Signs Vital signs: Vital Signs Temp 96.1 F L 04/06/19 07:00 Pulse 89 04/06/19 07:00 Resp 18 04/06/19 07:00 BP 106/54 04/06/19 07:00 Pulse Ox 93 L 04/06/19 07:00 Intake & Output 04/05/19 04/06/19 04/06/19 18:59 06:59 18:59 Intake Total 798 170 480 Output Total 975 800 775 Balance -177 -630 -295 Weight 109.5 kg 109.5 kg Intake: Intake, IV Titration 50 Amount ceFAZolin 2 gm In Sodium 50 Chloride 0.9% 50 ml @ 100 mls/hr IVPB Q8HR [facility] Rx# :[id number] Oral 798 120 480 Output: Urine 975 800 775 Other: Voiding Method Indwelling Catheter Indwelling Catheter Indwelling Catheter - Exam GENERAL EXAM: Alert, 83-year-old male patient on 3 L nasal cannula, fairly comfortable in no acute distress. HEAD: Normocephalic/atraumatic. EYES: Normal reaction of pupils, equal size. Conjunctiva pink, sclera white. NOSE: Clear with pink turbinates. THROAT: No erythema or exudates. NECK: No masses, no JVD, no thyroid enlargement, no adenopathy. CHEST: No chest wall deformity. Symmetrical expansion. LUNGS: Equal air entry with crackles in the right lung base. CVS: Regular rate and rhythm, normal S1 and S2, no gallops, no murmurs, no rubs ABDOMEN: Soft, nontender. No hepatosplenomegaly, normal bowel sounds, no guar ding or rigidity. EXTREMITIES: No clubbing, no edema, no cyanosis, 2+ pulses and upper and lower extremities. MUSCULOSKELETAL: Muscle strength and tone normal. SPINE: No scoliosis or deformity. Surgical site dressing dry and intact. SKIN: No rashes CENTRAL NERVOUS SYSTEM: No focal deficits, tone is normal in all 4 extremities. PSYCHIATRIC: Alert and oriented -3. Appropriate affect. Intact judgment and insight. - Labs CBC & Chem 7: 04/06/19 07:04 04/06/19 07:04 Labs: Abnormal Lab Results - Last 24 Hours (Table) 04/05/19 04/05/19 04/06/19 Range/Units 16:31 21:01 06:47 WBC (3.8-10.6) k/uL Hgb (13.0-17.5) gm/dL Hct (39.0-53.0) % MCHC (31.0-37.0) g/dL RDW (11.5-15.5) % Neutrophils # (1.3-7.7) k/uL Lymphocytes # (1.0-4.8) k/uL Chloride (98-107) mmol/L Carbon Dioxide (22-30) mmol/L BUN (9-20) mg/dL Glucose (74-99) mg/dL POC Glucose (mg/dL) 283 H 144 H 210 H (75-99) mg/dL 04/06/19 04/06/19 04/06/19 Range/Units 07:04 07:04 11:42 WBC 14.0 H (3.8-10.6) k/uL Hgb 11.3 L (13.0-17.5) gm/dL Hct 38.2 L (39.0-53.0) % MCHC 29.7 L (31.0-37.0) g/dL RDW 17.2 H (11.5-15.5) % Neutrophils # 12.6 H (1.3-7.7) k/uL Lymphocytes # 0.8 L (1.0-4.8) k/uL Chloride 94 L (98-107) mmol/L Carbon Dioxide 35 H (22-30) mmol/L BUN 36 H (9-20) mg/dL Glucose 223 H (74-99) mg/dL POC Glucose (mg/dL) 236 H (75-99) mg/dL Microbiology - Last 24 Hours (Table) 04/04/19 10:49 Blood Culture - Preliminary Blood No Growth after 48 hours Assessment and Plan Assessment: Impression: #1 Intractable lower back pain due to severe canal stenosis with bilateral foraminal encroachment of L3 and L4. Status post epidural injection on 04/02/2019. Status post laminectomy and discectomy of L3-L4 on 04/04/2019. Pain has improved. #2 Epistaxis requiring packing of the right nare. #3 Dyspnea secondary to above and right lung infiltrate. 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 Recent mediastinal endoscopy with negative lymph nodes. #5 PET scan showing some uptake in mediastinal lymph nodes. #6 Diabetes mellitus. #7 Diabetic neuropathy. #8 Gastric esophageal reflux disease. #9 History of coronary disease with previous stent placement. #10 Hypothyroidism. #11 Hyperlipidemia. Plan: The patient was seen and evaluated by Dr. Clayton. He is stable from the pulmonary standpoint. Increase his activity as tolerated. We'll continue to follow. I, the cosigning physician, performed a history & physical examination on the patient. Lungs sounds with few scattered rhonchi more so on the right lung. Maintaining good O2 saturations in the 90s on 3 L/m per nasal cannula. I discussed the assessment and plan of care with my nurse practitioner, Yesica Vanegas. I attest to the above note as dictated by her.
[2019-04-07] MEDS ORDERED: FAMOTIDINE 20 MG TAB PO SCH (09:00)
--- NOTE | 2019-04-10 05:28 | PN ---
PROGRESS NOTE DATE OF SERVICE: 04/06/2019 SUBJECTIVE: Vital signs stable. No further nasal bleeding. The patient has undergone back surgery successfully and is not having significant amount of pain. All nasal packing is out and the patient currently is having his nose sprayed with Afrin 3 times daily. OBJECTIVE: Intranasal examination reveals there is no evidence of any bleeding intranasally. The left naris is completely dry. Examination of oropharynx reveals posterior pharynx is completely dry. ASSESSMENT: Anterior-posterior epistaxis. PLAN: As long as the patient is in the hospital, they should continue with the nasal sprays as directed. However, once the patient is transferred to a nursing facility I would discontinue the nasal sprays. I have advised the patient not to blow his nose for at least another week. I do not need to see this patient on followup in my office. If I could be of any further assistance, please feel free to re-consult me. KASHMIR / KAYLEYN: [phone] / CHU
--- NOTE | 2019-04-11 12:56 | CDI ---
Documentation Clarification Form Date: 04/11/19 From: Cat Poe Phone: If you have a question regarding this query, please contact Cora Smith at [phone] between 8am and 5pm. Admit Date: 03/29/2019 12:57:00 PM Patient Name: Miguel Grace Visit Number: [id number] Discharge Date: 04/06/2019 5:50:00 PM ATTENTION: The Clinical Documentation Specialists (CDI) and [facility] Coding Staff appreciate your assistance in clarifying documentation. Please respond to the clarification below the line at the bottom and electronically sign. The CDI & [facility] Coding staff will review the response and follow-up if needed. Please note: Queries are made part of the Legal Health Record. If you have any questions, please contact the author of this message via ITS. Dr. Miguel Parra More confusion today was documented in your 03/31 progress note assessment. History/Risk Factors: HARI, mild dehydration, lumbar radiculopathy with severe pain of the lower extremity Clinical Indicators: confusion Labs: WBC 14.5, hgb 11.8, neutrophils 92%, sodium 136, creatinine 45, GFR 1.77, glucose 288 X Ray: Chest x-ray: 1. Cardiomegaly. 2. Worsening infiltrate in the right midlung likely representing pneumonia. Treatment: Fluid bolus 1 liter, Insulin, Prandin po, IV Dilaudid, IV Solu-Medrol In your professional opinion, please clarify the etiology of the Altered Mental Status, if known. Delirium (specify cause): Dementia (if know, specify Type and if with/without Behavioral Disturbance) Encephalopathy (specify Type and Underlying Medical Illness) Other condition (please specify) Unable to determine MTDD
--- NOTE | 2019-04-20 13:56 | CDI ---
Documentation Clarification Form Date: 04/20/19 From: Cat Poe Phone: If you have a question about this query, please contact Cora Smith, Electrolysis Needle Operator at [phone] between 8am and 5pm. Admit Date: 03/29/19 Discharge Date: 04/06/19 Patient Name: Miguel Grace Visit Number: [id number] ATTENTION: The Clinical Documentation Specialists (CDI) and [facility] Coding Staff appreciate your assistance in clarifying documentation. Please respond to the clarification below the line at the bottom and electronically sign. The CDI & [facility] Coding staff will review the response and follow-up if needed. Please note: Queries are made part of the Legal Health Record. If you have any questions, please contact the author of this message via ITS. Dear Dr Parra More confusion today was documented in your 03/31 progress note assessment. History/Risk Factors: HARI, mild dehydration, lumbar radiculopathy with severe pain of the lower extremity Clinical Indicators: confusion Labs: WBC 14.5, hgb 11.8, neutrophils 92%, sodium 136, creatinine 45, GFR 1.77, glucose 288 X Ray: Chest x-ray: 1. Cardiomegaly. 2. Worsening infiltrate in the right midlung likely representing pneumonia. Treatment: Fluid bolus 1 liter, Insulin, Prandin po, IV Dilaudid, IV Solu-Medrol In your professional opinion, please clarify the etiology of the Altered Mental Status, if known. Delirium (specify cause): Dementia (if know, specify Type and if with/without Behavioral Disturbance) Encephalopathy (specify Type and Underlying Medical Illness) Other condition (please specify) Unable to determine MTDD
--- NOTE | 2019-04-29 21:59 | DS ---
DISCHARGE SUMMARY ADDENDUM: Please add to the discharge summary on Miguel Grace: IMPRESSION: 1. Delirium due to pneumonia. 2. Urinary tract infection. 3. Metabolic encephalopathy also secondary to the above pneumonia and urinary tract infection and mild dementia, metabolic encephalopathy due to sepsis. 4. Acute on chronic respiratory failure. 5. Metabolic acidosis secondary to sepsis. MMODL / IJN: [id number] /
== END 2019-04-06 17:50 | DRG 518 ==
LOC: EC 13:56 → 4MS4W 17:03 → OBSVTOIN 03-29 12:57 → 4MS4W 03-29 14:00 → 3SCARD 03-31 12:21
PROVIDERS: ADMIT Family Medicine; ATTEND Family Medicine
PROC: 2Y41X5Z Packing of Nasal Region using Packing Material (ICD-10-PCS; 2019-03-27)
PROC: 3E0R3BZ Introduction of Anesthetic Agent into Spinal Canal, Percutaneous Approach (ICD-10-PCS; 2019-04-02)
PROC: 3E0R33Z Introduction of Anti-inflammatory into Spinal Canal, Percutaneous Approach (ICD-10-PCS; 2019-04-02)
PROC: B01BZZZ Fluoroscopy of Spinal Cord (ICD-10-PCS; 2019-04-02)
PROC: 01NB0ZZ Release Lumbar Nerve, Open Approach (ICD-10-PCS; 2019-04-04)
PROC: 0SB20ZZ Excision of Lumbar Vertebral Disc, Open Approach (ICD-10-PCS; principal; 2019-04-04 13:30)
DX: M51.16 Intervertebral disc disorders with radiculopathy, lumbar region (principal); A41.9 Sepsis, unspecified organism; J18.1 Lobar pneumonia, unspecified organism; J96.01 Acute respiratory failure with hypoxia; G93.41 Metabolic encephalopathy; R65.20 Severe sepsis without septic shock; C34.91 Malignant neoplasm of unspecified part of right bronchus or lung; I50.32 Chronic diastolic (congestive) heart failure; J44.0 Chronic obstructive pulmonary disease with (acute) lower respiratory infection; N17.9 Acute kidney failure, unspecified; E11.42 Type 2 diabetes mellitus with diabetic polyneuropathy; E11.51 Type 2 diabetes mellitus with diabetic peripheral angiopathy without gangrene; E86.0 Dehydration; I11.0 Hypertensive heart disease with heart failure; E11.65 Type 2 diabetes mellitus with hyperglycemia; M48.061 Spinal stenosis, lumbar region without neurogenic claudication; R41.0 Disorientation, unspecified; E03.9 Hypothyroidism, unspecified; E78.5 Hyperlipidemia, unspecified; G47.33 Obstructive sleep apnea (adult) (pediatric); G89.29 Other chronic pain; I25.10 Atherosclerotic heart disease of native coronary artery without angina pectoris; I25.2 Old myocardial infarction; K21.9 Gastro-esophageal reflux disease without esophagitis; M16.11 Unilateral primary osteoarthritis, right hip; M70.71 Other bursitis of hip, right hip; R04.0 Epistaxis; T38.0X5A Adverse effect of glucocorticoids and synthetic analogues, initial encounter; E66.9 Obesity, unspecified; R59.0 Localized enlarged lymph nodes; E78.00 Pure hypercholesterolemia, unspecified; R32 Unspecified urinary incontinence; Z66 Do not resuscitate; Z86.14 Personal history of Methicillin resistant Staphylococcus aureus infection; Z68.34 Body mass index [BMI] 34.0-34.9, adult; Z79.4 Long term (current) use of insulin; Z79.82 Long term (current) use of aspirin; Z79.899 Other long term (current) drug therapy; Z95.5 Presence of coronary angioplasty implant and graft; Z87.891 Personal history of nicotine dependence; Z99.81 Dependence on supplemental oxygen; Z87.01 Personal history of pneumonia (recurrent); Z77.22 Contact with and (suspected) exposure to environmental tobacco smoke (acute) (chronic); Z82.49 Family history of ischemic heart disease and other diseases of the circulatory system; Z80.8 Family history of malignant neoplasm of other organs or systems
CPT/HCPCS: 30901; 36415; 62323; 71045; 72100; 72148; 73502; 80048; 80053; 81003; 83605; 85025; 85027; 85379; 85610; 85730; 87040; 94640; 94760; 96372; 96374; 96375; 99285

== ENCOUNTER 2019-04-19 13:06 | Inpatient (IN) | payer MEDICARE, OTHER ==
[2019-04-19] MEDS ORDERED: ACETAMINOPHEN TAB 500 MG TAB PO STA (13:28)
[2019-04-19] MEDS: SODIUM CHLORIDE 0.9% 500 ML 500 ML IV SCH (13:50)
--- NOTE | 2019-04-19 13:52 | ED ---
General Adult HPI - General Chief complaint: Altered Mental Status Stated complaint: Altered Mental Status Time Seen by Provider: 04/19/19 13:10 Source: EMS Mode of arrival: EMS Limitations: no limitations - History of Present Illness Initial comments: The patient is an 83-year-old male with past medical history of COPD and lung cancer who is status post lumbar laminectomy on April 04. He was sent to [facility] for rehab. Acutely this morning he had a change in mental status. He also had increasing O2 needs. EMS reports that patient is not oxygen dependent. Staff reported that he was saturating in the 80s. He was placed on 2 L and improved to 92%. He appeared very sleepy and difficulty answering questions. He did not have any unilateral symptoms. Temp was obtained and the patient had a fever of 103. The patient does arrive to the oxygen. He is a lot more alert per EMS and answering questions. He does admit to a cough. Also reports chills. Patient denies any nausea or vomiting. No abdominal pain. He has had difficulties with urinary retention since his surgery. He he has been straight cathed and he has been retaining. He denies any dysuria, hematuria. No changes in bowel habits to include diarrhea, melanotic stools or hematochezia. Patient denies any neck or back pain. Denies pain at his surgical site. Denies any d rainage. History of DVT or PE. No calf pain or swelling. There are no other alleviating, precipitating or modifying factors - Related Data Home Medications Medication Instructions Recorded Confirmed Omeprazole [PriLOSEC] 20 mg PO DAILY@0600 06/11/14 04/19/19 Simvastatin [Zocor] 40 mg PO HS 06/11/14 04/19/19 Gabapentin [Neurontin] 300 mg PO QID 10/16/17 04/19/19 Metoprolol Tartrate [Lopressor] 50 mg PO DAILY 10/16/17 04/19/19 Albuterol Nebulized [Ventolin 2.5 mg INHALATION RT-QID PRN 11/02/18 04/19/19 Nebulized] Cholecalciferol [Vitamin D3 (25 1,000 unit PO DAILY@1700 11/02/18 04/19/19 Mcg = 1000 Iu)] INSULIN LISPRO (HumaLOG) [humaLOG] 20 units SQ AC-TID 11/03/18 04/19/19 Furosemide [Lasix] 40 mg PO BID@0600,1400 03/27/19 04/19/19 Repaglinide 1 mg PO TID@0800,1200,1700 03/27/19 04/19/19 Bisacodyl [Dulcolax] 10 mg RECTAL DAILY PRN 04/19/19 04/19/19 HYDROcodone/APAP 5-325MG [[place] 1 tab PO Q8HR PRN 04/19/19 04/19/19 5-325] Hydrocortisone Cream 1 applic TOPICAL BID PRN MDD 04/19/19 04/19/19 [Hydrocortisone 1% Cream] ABD/BACK/GROIN Magnesium Hydroxide [Milk of 2,400 mg PO DAILY PRN 04/19/19 04/19/19 Magnesia] Na Phos,M-B/Na Phos,Di-Ba [Fleet 133 ml RECTAL DAILY PRN 04/19/19 04/19/19 Adult] Oxymetazoline 0.05% Nasl [place] 2 spray NASAL BID@0800,1700 04/19/19 04/19/19 [Afrin 0.05% Nasal [place]] Tamsulosin HCl [Flomax] 0.4 mg PO HS 04/19/19 04/19/19 Previous Rx's Medication Instructions Recorded Acetaminophen Tab [Tylenol] 650 mg PO Q6HR PRN tab 04/06/19 Allergies Allergy/AdvReac Type Severity Reaction Status Date / Time No Known Allergies Allergy Verified 04/19/19 13:41 Review of Systems ROS Statement: Those systems with pertinent positive or pertinent negative responses have been documented in the HPI. ROS Other: All systems not noted in ROS Statement are negative. Past Medical History Past Medical History: COPD, Diabetes Mellitus, GERD/Reflux, Hypertension, Myocardial Infarction (ME), Renal Disease, Sleep Apnea/CPAP/BIPAP, Vascular Disorder Additional Past Medical History / Comment(s): NEUROPATHY FEET, decreased kidney function, uses CPAP Last Myocardial Infarction Date:: 2015 History of Any Multi-Drug Resistant Organisms: MRSA Date of last positivie culture/infection: 02/07/19 MDRO Source:: MRSA BRONCH Past Surgical History: Heart Catheterization, Heart Catheterization With Stent, Tonsillectomy Additional Past Surgical History / Comment(s): EGD, COLONOSCOPY, sinus surg. x3, chest/lung biopsy, LAMINECTOMY Past Anesthesia/Blood Transfusion Reactions: No Reported Reaction Date of Last Stent Placement:: 2015 Past Psychological History: No Psychological Hx Reported Smoking Status: Former smoker Past Alcohol Use History: None Reported Past Drug Use History: None Reported - Past Family History Father Family Medical History: Cancer, Myocardial Infarction (ME) Additional Family Medical History / Comment(s): Father had bone cancer. He at the age of 80yrs. Mother Family Medical History: AFIB, Myocardial Infarction (ME) Additional Family Medical History / Comment(s): Mother when she 82 years old and of a heart attack General Exam Limitations: altered mental status General appearance: in no apparent distress Head exam: Present: atraumatic, normocephalic, normal inspection Eye exam: Present: normal appearance, PERRL, EOMI. Absent: scleral icterus, conjunctival injection, periorbital swelling ENT exam: Present: mucous membranes dry, mucous membranes moist Neck exam: Present: normal inspection. Absent: tenderness, meningismus, lymphadenopathy Respiratory exam: Present: respiratory distress, rales, accessory muscle use, decreased breath sounds. Absent: wheezes, rhonchi, stridor Cardiovascular Exam: Present: regular rate, normal rhythm, normal heart sounds. Absent: systolic murmur, diastolic murmur, rubs, gallop, clicks GI/Abdominal exam: Present: soft, normal bowel sounds. Absent: distended, tenderness, guarding, rebound, rigid Extremities exam: Present: normal inspection, full ROM, normal capillary refill. Absent: tenderness, pedal edema, joint swelling, calf tenderness Back exam: Present: normal inspection, other (surigcal site healing well. C/D/I site in the lumbar region) Neurological exam: Present: altered, CN II-XII intact Psychiatric exam: Present: normal affect, normal mood Skin exam: Present: warm, intact, normal color, diaphoretic. Absent: rash Course Vital Signs 04/19/19 04/19/19 04/19/19 13:10 13:30 14:00 Temperature 103 F H Pulse Rate 90 96 87 Pulse Rate [ Pulse Oximetery ] Respiratory 22 17 20 Rate Blood Pressure 115/57 115/57 112/87 Blood Pressure [Right Arm] O2 Sat by Pulse 96 97 83 L Oximetry 04/19/19 04/19/19 04/19/19 14:30 15:00 15:42 Temperature 99.1 F Pulse Rate 85 82 77 Pulse Rate [ Pulse Oximetery ] Respiratory 16 17 16 Rate Blood Pressure 109/54 100/54 105/57 Blood Pressure [Right Arm] O2 Sat by Pulse 96 96 95 Oximetry 04/19/19 04/19/19 16:30 17:14 Temperature Pulse Rate 77 Pulse Rate [ 78 Pulse Oximetery ] Respiratory 22 18 Rate Blood Pressure 99/54 Blood Pressure 119/53 [Right Arm] O2 Sat by Pulse 97 95 Oximetry EKG Findings - EKG Comments: EKG Findings:: EKG demonstrates normal sinus rhythm with a ventricular rate of 88. NC interval 206. QRS 78. QTC 377. Q wave in lead 3. No acute ST segment elevations Procedures - ABG Interpretation Ph: 7.45 PCO2: 47 PO2: 84 Bicarbonate: 32 Interpretation: normal Medical Decision Making - Medical Decision Making Upon arrival the patient is placed in room 6. A thorough history and physical exam was obtained. The patient is on 6 liters of oxygen. Peripheral IV was established. I ordered a liter bolus of normal saline. A 12-lead EKG is performed which demonstrates normal sinus rhythm. Laboratory studies were conducted. He has a white blood count of 10.6. Hemoglobin 11. Lytes are normal. Blood gas shows a pH of 7.45, CO2 47, O2 84, bicarb 32. Sodium 134, chloride 97, glucose 72, lactic acid 2.1, urinalysis shows moderate leukocyte esterase, 23 white blood cells, occasional bacteria and mucus influenza is negative chest x-ray demonstrates right infrahilar patchy density. There are also scattered infiltrates left apical region and left lower lobe with small left sided pleural effusion lumbar CT demonstrates facet hypertrophy with li gamentum flavum laxity. Bulging L4-5 and L5-S1. Chest CTA demonstrates no PE. There are patchy infiltrates at the left lung. I discussed results with the patient. He does have some mild hypotension which resolved after the patient received IV fluids. I initially ordered Rocephin because the patient's acute urinary tract infection. Once pneumonia was identified I do add-on Vanco as the patient was recent hospitalized. I recommended hospital admission. I called discuss case with Dr. Whittaker who accepted admission for the patient. The patient remained in stable condition awaiting a bed on the floor - Lab Data Result diagrams: 04/23/19 06:05 04/24/19 05:41 Lab Results 04/19/19 04/19/19 04/19/19 Range/Units 13:40 13:40 13:40 WBC 10.6 (3.8-10.6) k/uL RBC 3.91 L (4.30-5.90) m/uL Hgb 11.0 L (13.0-17.5) gm/dL Hct 33.3 L (39.0-53.0) % MCV 85.1 (80.0-100.0) fL MCH 28.0 (25.0-35.0) pg MCHC 32.9 (31.0-37.0) g/dL RDW 16.6 H (11.5-15.5) % Plt Count 320 (150-450) k/uL Neutrophils % 86 % Lymphocytes % 6 % Monocytes % 5 % Eosinophils % 1 % Basophils % 2 % Neutrophils # 9.1 H (1.3-7.7) k/uL Lymphocytes # 0.6 L (1.0-4.8) k/uL Monocytes # 0.5 (0-1.0) k/uL Eosinophils # 0.1 (0-0.7) k/uL Basophils # 0.2 (0-0.2) k/uL Hypochromasia Moderate Poikilocytosis Slight Anisocytosis Slight PT (9.0-12.0) sec INR (<1.2) APTT (22.0-30.0) sec Sample Site ABG pH (7.35-7.45) ABG pCO2 (35-45) mmHg ABG pO2 (83-108) mmHg ABG HCO3 (21-25) mmol/L ABG Total CO2 (19-24) mmol/L ABG O2 Saturation (94-97) % ABG Base Excess mmol/L Neftali Test FiO2 % Sodium (137-145) mmol/L Potassium (3.5-5.1) mmol/L Chloride (98-107) mmol/L Carbon Dioxide (22-30) mmol/L Anion Gap mmol/L BUN (9-20) mg/dL Creatinine (0.66-1.25) mg/dL Est GFR (CKD-EPI)AfAm (>60 ml/min/1.73 sqM) Est GFR (CKD-EPI)NonAf (>60 ml/min/1.73 sqM) Glucose (74-99) mg/dL Lactic Ac Sepsis Rflx Plasma Lactic Acid Chang (0.7-2.0) mmol/L Calcium (8.4-10.2) mg/dL Total Bilirubin (0.2-1.3) mg/dL AST (17-59) U/L ALT (21-72) U/L Alkaline Phosphatase (38-126) U/L Total Protein (6.3-8.2) g/dL Albumin (3.5-5.0) g/dL Urine Color Light Yellow Urine Appearance Clear (Clear) Urine pH 5.5 (5.0-8.0) Ur Specific [place] 1.009 (1.001-1.035) Urine Protein Trace H (Negative) Urine Glucose (UA) Negative (Negative) Urine Ketones Negative (Negative) Urine Blood Trace H (Negative) Urine Nitrite Negative (Negative) Urine Bilirubin Negative (Negative) Urine Urobilinogen <2.0 (<2.0) mg/dL Ur Leukocyte Esterase Moderate H (Negative) Urine RBC 3 (0-5) /hpf Urine WBC 23 H (0-5) /hpf Ur Squamous Epith Cells <1 (0-4) /hpf Urine Bacteria Occasional H (None) /hpf Urine Mucus Rare H (None) /hpf Influenza Type A RNA Not Detected (Not Detectd) Influenza Type B (PCR) Not Detected (Not Detectd) 04/19/19 04/19/19 04/19/19 Range/Units 13:40 14:07 14:20 WBC (3.8-10.6) k/uL RBC (4.30-5.90) m/uL Hgb (13.0-17.5) gm/dL Hct (39.0-53.0) % MCV (80.0-100.0) fL MCH (25.0-35.0) pg MCHC (31.0-37.0) g/dL RDW (11.5-15.5) % Plt Count (150-450) k/uL Neutrophils % % Lymphocytes % % Monocytes % % Eosinophils % % Basophils % % Neutrophils # (1.3-7.7) k/uL Lymphocytes # (1.0-4.8) k/uL Monocytes # (0-1.0) k/uL Eosinophils # (0-0.7) k/uL Basophils # (0-0.2) k/uL Hypochromasia Poikilocytosis Anisocytosis PT (9.0-12.0) sec INR (<1.2) APTT (22.0-30.0) sec Sample Site rrad ABG pH 7.45 (7.35-7.45) ABG pCO2 47 H (35-45) mmHg ABG pO2 84 (83-108) mmHg ABG HCO3 32 H (21-25) mmol/L ABG Total CO2 33 H (19-24) mmol/L ABG O2 Saturation 96.9 (94-97) % ABG Base Excess 8.0 mmol/L Neftali Test Yes FiO2 44 % Sodium (137-145) mmol/L Potassium (3.5-5.1) mmol/L Chloride (98-107) mmol/L Carbon Dioxide (22-30) mmol/L Anion Gap mmol/L BUN (9-20) mg/dL Creatinine (0.66-1.25) mg/dL Est GFR (CKD-EPI)AfAm (>60 ml/min/1.73 sqM) Est GFR (CKD-EPI)NonAf (>60 ml/min/1.73 sqM) Glucose (74-99) mg/dL Lactic Ac Sepsis Rflx Y Plasma Lactic Acid Chang 2.1 H* (0.7-2.0) mmol/L Calcium (8.4-10.2) mg/dL Total Bilirubin (0.2-1.3) mg/dL AST (17-59) U/L ALT (21-72) U/L Alkaline Phosphatase (38-126) U/L Total Protein (6.3-8.2) g/dL Albumin (3.5-5.0) g/dL Urine Color Urine Appearance (Clear) Urine pH (5.0-8.0) Ur Specific [place] (1.001-1.035) Urine Protein (Negative) Urine Glucose (UA) (Negative) Urine Ketones (Negative) Urine Blood (Negative) Urine Nitrite (Negative) Urine Bilirubin (Negative) Urine Urobilinogen (<2.0) mg/dL Ur Leukocyte Esterase (Negative) Urine RBC (0-5) /hpf Urine WBC (0-5) /hpf Ur Squamous Epith Cells (0-4) /hpf Urine Bacteria (None) /hpf Urine Mucus (None) /hpf Influenza Type A RNA (Not Detectd) Influenza Type B (PCR) (Not Detectd) 04/19/19 04/19/19 Range/Units 14:26 15:17 WBC (3.8-10.6) k/uL RBC (4.30-5.90) m/uL Hgb (13.0-17.5) gm/dL Hct (39.0-53.0) % MCV (80.0-100.0) fL MCH (25.0-35.0) pg MCHC (31.0-37.0) g/dL RDW (11.5-15.5) % Plt Count (150-450) k/uL Neutrophils % % Lymphocytes % % Monocytes % % Eosinophils % % Basophils % % Neutrophils # (1.3-7.7) k/uL Lymphocytes # (1.0-4.8) k/uL Monocytes # (0-1.0) k/uL Eosinophils # (0-0.7) k/uL Basophils # (0-0.2) k/uL Hypochromasia Poikilocytosis Anisocytosis PT 11.0 (9.0-12.0) sec INR 1.0 (<1.2) APTT 29.1 (22.0-30.0) sec Sample Site ABG pH (7.35-7.45) ABG pCO2 (35-45) mmHg ABG pO2 (83-108) mmHg ABG HCO3 (21-25) mmol/L ABG Total CO2 (19-24) mmol/L ABG O2 Saturation (94-97) % ABG Base Excess mmol/L Neftali Test FiO2 % Sodium 134 L (137-145) mmol/L Potassium 4.2 (3.5-5.1) mmol/L Chloride 97 L (98-107) mmol/L Carbon Dioxide 31 H (22-30) mmol/L Anion Gap 6 mmol/L BUN 15 (9-20) mg/dL Creatinine 1.25 (0.66-1.25) mg/dL Est GFR (CKD-EPI)AfAm 63 (>60 ml/min/1.73 sqM) Est GFR (CKD-EPI)NonAf 54 (>60 ml/min/1.73 sqM) Glucose 72 L (74-99) mg/dL Lactic Ac Sepsis Rflx Plasma Lactic Acid [place] (0.7-2.0) mmol/L Calcium 8.0 L (8.4-10.2) mg/dL Total Bilirubin 0.5 (0.2-1.3) mg/dL AST 14 L (17-59) U/L ALT 14 L (21-72) U/L Alkaline Phosphatase 74 (38-126) U/L Total Protein 6.6 (6.3-8.2) g/dL Albumin 2.7 L (3.5-5.0) g/dL Urine Color Urine Appearance (Clear) Urine pH (5.0-8.0) Ur Specific [place] (1.001-1.035) Urine Protein (Negative) Urine Glucose (UA) (Negative) Urine Ketones (Negative) Urine Blood (Negative) Urine Nitrite (Negative) Urine Bilirubin (Negative) Urine Urobilinogen (<2.0) mg/dL Ur Leukocyte Esterase (Negative) Urine RBC (0-5) /hpf Urine WBC (0-5) /hpf Ur Squamous Epith Cells (0-4) /hpf Urine Bacteria (None) /hpf Urine Mucus (None) /hpf Influenza Type A RNA (Not Detectd) Influenza Type B (PCR) (Not Detectd) Disposition Clinical Impression: Pneumonia, Hypoxia, Acute urinary tract infection, Status post laminectomy, Urinary retention, Altered mental status Disposition: ADMITTED IP TO THIS [facility] Condition: Serious Is patient prescribed a controlled substance at d/c from ED?: No Decision to Admit Reason: Admit from EC Decision Date: 04/19/19 Decision Time: 16:28
[2019-04-19 14:07] LABS: Anisocytosis Slight; Basophils # (A) 0.2 k/uL (0-0.2); Basophils % (A) 2 %; Eosinophils # (A) 0.1 k/uL (0-0.7); Eosinophils % (A) 1 %; HCT 33.3 % (39.0-53.0); Hypochromasia Moderate; Lymphocytes # (A) 0.6 k/uL (1.0-4.8); Lymphocytes % (A) 6 %; MCHC 32.9 g/dL (31.0-37.0); MCV 85.1 fL (80.0-100.0); Mean Platelet Volume 8.4; Monocytes # (A) 0.5 k/uL (0-1.0); Monocytes % (A) 5 %; Neutrophils # (A) 9.1 k/uL (1.3-7.7); Neutrophils % (A) 86 %; Platelet Count 320 k/uL (150-450); Poikilocytosis Slight; RBC 3.91 m/uL (4.30-5.90); RDW 16.6 % (11.5-15.5); WBC 10.6 k/uL (3.8-10.6)
[2019-04-19 14:17] LABS: Appearance,Urine Clear (Clear); Bacteria,Urine Occasional /hpf; Bilirubin,Urine Negative (Negative); Blood,Urine Trace (Negative); Color,Urine Light Yellow; Glucose,Urine (UA) Negative (Negative); Ketones,Urine Negative (Negative); Leukocyte Esterase,Urine Moderate (Negative); Mucus,Urine Rare /hpf; Nitrite,Urine Negative (Negative); PH, Urine 5.5 (5.0-8.0); Protein,Urine Trace (Negative); RBC,Urine 3 /hpf (0-5); Specific Gravity,Urine 1.009 (1.001-1.035); Squamous Epithelial Cell,Urine <1 /hpf (0-4); Urobilinogen,Urine <2.0 mg/dL (<2.0)
[2019-04-19 14:35] LABS: ABG HCO3 32 mmol/L (21-25); ABG Oxygen Saturation 96.9 % (94-97); ABG PCO2 47 mmHg (35-45); ABG PH 7.45 (7.35-7.45); ABG PO2 84 mmHg (83-108); ABG TCO2 33 mmol/L (19-24); Allen Test Performed? Yes
--- NOTE | 2019-04-19 14:38 | CT ---
CT CHEST FOR PULMONARY EMBOLISM. EXAMINATION TYPE: CT chest angio for PE DATE OF EXAM: 04/19/2019 INDICATION: SOB and low back pain post laminectomy CT DLP: 752.2 mGycm, Automated exposure control for dose reduction was used. CONTRAST: Patient injected with 80 mL of Isovue 370. COMPARISON: None TECHNIQUE: CT of the chest is performed on a spiral scan at 2 mm thick sections. Study is performed with intravenous contrast timed for evaluation for pulmonary embolism. This will limit additional po rtions of the evaluation. 3-D MIP images reconstructed by the technologist are reviewed on the compu ter in the coronal and sagittal planes. FINDINGS: No persistent filling defects are evident to suggest an acute pulmonary embolism. No mediastinal or hilar adenopathy enlarged by CT criteria is evident. The ascending aorta diameter at the level of the main pulmonary artery is 3.7 cm. The main pulmonary artery diameter at the bifur cation is 2.8 cm. There are patchy infiltrates within the left lung. There is a mass right lung measuring 4.5 x 7.4 cm. There is an enlarged 1.5 cm lymph node in pretracheal space. Smaller 1.2 cm pretracheal lymph node a t the level radha is noted. Limited CT section through the upper abdomen are unremarkable. Aortic wall calcification is noted. IMPRESSIONS: 1. No acute pulmonary embolism. 2. Right infrahilar mass. 3. Few scattered chains bilaterally. 4. Aorta appears intact without evidence of dissection or aneurysm
--- NOTE | 2019-04-19 14:44 | CT ---
EXAMINATION TYPE: CT lumbar spine w con DATE OF EXAM: 04/19/2019 COMPARISON: None HISTORY: SOB and low back pain post laminectomy CT DLP: 1408 mGycm CONTRAST: CT scan of the lumbar is performed with IV Contrast, patient injected with 80 mL of Isovue 370. TECHNIQUE: CT of the lumbar spine is performed on a spiral scan at 3 mm thick sections. Reconstructed images are performed in the coronal and sagittal planes. FINDINGS: There is a fusiform prominence of the distal abdominal aorta terminating at the bifurcation with the greatest AP diameter 2.9 cm. Series 505 image 40. Vascular calcifications within the aorta. T12-L1: No focal disc herniation or significant disc bulge is evident. No spinal canal stenosis or neural foraminal stenosis is present. L1-L2: No focal disc herniation or significant disc bulge is evident. No spinal canal stenosis or n eural foraminal stenosis is present L2-L3: No focal disc herniation or significant disc bulge is evident. No spinal canal stenosis or n eural foraminal stenosis is present L3-L4: No focal disc herniation or significant disc bulge is evident. No spinal canal stenosis or n eural foraminal stenosis is present L4-L5: Disc bulge is present. Facet hypertrophy is present previously contributed spinal canal narrow ing at the L4-5 level in the lateral direction. No AP spinal canal stenosis is present. There is mode rate right foraminal stenosis. L5-S1: Small broad-based disc bulge is present. No AP spinal canal stenosis is present. Facet hypertr ophy and ligamentum flavum laxity contributing to lateral canal narrowing. There is mild to moderate right foraminal stenosis.. Facet degenerative changes present L5-S1. Some posterior lateral thecal sa c compression and some lateral canal narrowing at this level is present. No AP spinal canal stenosis present. Scoliosis is present. IMPRESSION: 1. Facet hypertrophy with ligamentum flavum laxity is contributing to lateral canal narrowing L4-5 an d L5-S1. Some right foraminal narrowing is present. 2. Disc bulging L4-5 and L5-S1. No AP spinal canal stenosis is present.
[2019-04-19 14:48] LABS: Albumin 2.7 g/dL (3.5-5.0); Potassium 4.2 mmol/L (3.5-5.1); Total Bilirubin 0.5 mg/dL (0.2-1.3); Total Protein 6.6 g/dL (6.3-8.2)
--- NOTE | 2019-04-19 14:49 | XR ---
EXAMINATION TYPE: XR chest 2V DATE OF EXAM: 04/19/2019 COMPARISON: 04/05/2019 HISTORY: Shortness of breath TECHNIQUE: Frontal and lateral views of the chest are obtained. FINDINGS: Right infrahilar patchy density may reflect infiltrate and/or atelectasis. Additional scattered infi ltrates left apical region and left lower lobe with small left-sided pleural effusion. Correlate for pneumonia and appropriate follow-up advised. Heart size is stable. Mediastinal structures are stable and grossly unremarkable. No evidence for hilar prominence. Degenerative changes dorsal spine. IMPRESSION: 1. Right infrahilar patchy density may reflect infiltrate and/or atelectasis. Additional scattered i nfiltrates left apical region and left lower lobe with small left-sided pleural effusion. Correlate f or pneumonia and appropriate follow-up advised.
[2019-04-19] MEDS ORDERED: cefTRIAXone IN SWFI 1,000 MG/10 ML SYRINGE IVP STA (15:19)
[2019-04-19] MEDS ORDERED: DEXTROSE 50% SYRINGE 50 ML IVP STA (15:32)
[2019-04-19] MEDS ORDERED: VANCOMYCIN 1,000 MG in SODIUM CHLORIDE 0.9% 250 ML IVPB STA (15:57)
[2019-04-19] MEDS ORDERED: VANCOMYCIN IV PER PHARMACY 1 EACH MISC MISCELLANE PRN (15:58)
[2019-04-19 16:00] LABS: Partial Thromboplastin Time 29.1 sec (22.0-30.0)
[2019-04-19] MEDS ORDERED: VANCOMYCIN 1,750 MG in SODIUM CHLORIDE 0.9% 500 ML 500 ML IVPB STA (16:10)
[2019-04-19] MEDS ORDERED: MAGNESIUM HYDROXIDE 2,400 MG/10 ML CUP PO PRN (16:30)
[2019-04-19] MEDS ORDERED: ALBUTEROL NEBULIZED 2.5 MG/3 ML INHALATION PRN (16:30)
[2019-04-19] MEDS ORDERED: BISACODYL 10 MG SUPP RECTAL PRN (16:30)
[2019-04-19] MEDS ORDERED: HYDROCORTISONE 1% CREAM 30 GM TUBE TOPICAL PRN (16:30)
--- NOTE | 2019-04-19 17:38 | P.HPIM ---
History of Present Illness H&P Date: 04/19/19 Chief Complaint: Fever of 103 with confusion This is a 83-year-old male status post laminectomy by Dr. Jensen patient was in extended care facility has been doing well until yesterday and earlier this morning, then she starting having chills fever up to a point that went up to 103 brought into the hospital he was found to be hypoxic did require 6 L oxygen as well with chills patient is suspected to have urinary tract infection along with sepsis with elevated lactic acid, flu titers are negative, the urine appears to be infected with moderate leukocyte esterase trace, patient underwent a computed tomography scan of the chest no significant pulmonary embolism is seen but however noted to have a right infrahilar mass along with scattered lymph node, patient may have a component of postobstructive pneumonia as well Review of Systems All systems: negative Past Medical History Past Medical History: COPD, Diabetes Mellitus, GERD/Reflux, Hypertension, Myocardial Infarction (NH), Renal Disease, Sleep Apnea/CPAP/BIPAP, Vascular Disorder Additional Past Medical History / Comment(s): NEUROPATHY FEET, decreased kidney function, uses CPAP Last Myocardial Infarction Date:: 2015 History of Any Multi-Drug Resistant Organisms: MRSA Date of last positivie culture/infection: 02/07/19 MDRO Source:: MRSA BRONCH Past Surgical History: Heart Catheterization, Heart Catheterization With Stent, Tonsillectomy Additional Past Surgical History / Comment(s): EGD, COLONOSCOPY, sinus surg. x3, chest/lung biopsy, LAMINECTOMY Past Anesthesia/Blood Transfusion Reactions: No Reported Reaction Date of Last Stent Placement:: 2015 Past Psychological History: No Psychological Hx Reported Smoking Status: Former smoker Past Alcohol Use History: None Reported Past Drug Use History: None Reported - Past Family History Father Family Medical History: Cancer, Myocardial Infarction (NH) Additional Family Medical History / Comment(s): Father had bone cancer. He at the age of 80yrs. Mother Family Medical History: AFIB, Myocardial Infarction (NH) Additional Family Medical History / Comment(s): Mother when she 82 years old and of a heart attack Medications and Allergies Home Medications Medication Instructions Recorded Confirmed Type Omeprazole [PriLOSEC] 20 mg PO DAILY@0600 06/11/14 04/19/19 History Simvastatin [Zocor] 40 mg PO HS 06/11/14 04/19/19 History Gabapentin [Neurontin] 300 mg PO QID 10/16/17 04/19/19 History Metoprolol Tartrate [Lopressor] 50 mg PO DAILY 10/16/17 04/19/19 History Albuterol Nebulized [Ventolin 2.5 mg INHALATION RT-QID PRN 11/02/18 04/19/19 History Nebulized] Cholecalciferol [Vitamin D3 (25 1,000 unit PO DAILY@1700 11/02/18 04/19/19 History Mcg = 1000 Iu)] INSULIN LISPRO (HumaLOG) [humaLOG] 20 units SQ AC-TID 11/03/18 04/19/19 History Furosemide [Lasix] 40 mg PO BID@0600,1400 03/27/19 04/19/19 History Repaglinide 1 mg PO TID@0800,1200,1700 03/27/19 04/19/19 History Acetaminophen Tab [Tylenol] 650 mg PO Q6HR PRN tab 04/06/19 04/19/19 Rx Bisacodyl [Dulcolax] 10 mg RECTAL DAILY PRN 04/19/19 04/19/19 History HYDROcodone/APAP 5-325MG [[place] 1 tab PO Q8HR PRN 04/19/19 04/19/19 History 5-325] Hydrocortisone Cream 1 applic TOPICAL BID PRN MDD 04/19/19 04/19/19 History [Hydrocortisone 1% Cream] ABD/BACK/GROIN Magnesium Hydroxide [Milk of 2,400 mg PO DAILY PRN 04/19/19 04/19/19 History Magnesia] Na Phos,M-B/Na Phos,Di-Ba [Fleet 133 ml RECTAL DAILY PRN 04/19/19 04/19/19 History Adult] Oxymetazoline 0.05% Nasl Guy 2 spray NASAL BID@0800,1700 04/19/19 04/19/19 History [Afrin 0.05% Nasal Guy] Tamsulosin HCl [Flomax] 0.4 mg PO HS 04/19/19 04/19/19 History Allergies Allergy/AdvReac Type Severity Reaction Status Date / Time No Known Allergies Allergy Verified 04/19/19 13:41 Physical Exam Vitals: Vital Signs Temp Pulse Resp BP Pulse Ox 04/19/19 16:30 77 22 99/54 97 04/19/19 15:42 99.1 F 77 16 105/57 95 04/19/19 15:00 82 17 100/54 96 04/19/19 14:30 85 16 109/54 96 04/19/19 14:00 87 20 112/87 83 L 04/19/19 13:30 96 17 115/57 97 04/19/19 13:10 103 F H 90 22 115/57 96 Intake and Output 04/19/19 04/19/19 04/19/19 06:59 14:59 22:59 Other: Weight 106.594 kg - Constitutional General appearance: average body habitus, cooperative, disheveled, mild distress, obese - EENT Eyes: anicteric sclerae, EOMI, PERRLA, poor dentition ENT: normal oropharynx Ears: bilateral: normal - Neck Neck: normal ROM Carotids: bilateral: upstroke normal - Respiratory Respiratory: bilateral: diminished, rales - Cardiovascular Rhythm: regular Heart sounds: normal: S1, S2 - Gastrointestinal General gastrointestinal: normal bowel sounds - Integumentary Integumentary: normal turgor - Neurologic Neurologic: CNII-XII intact - Musculoskeletal Musculoskeletal: gait normal, generalized weakness, strength equal bilaterally - Psychiatric Psychiatric: A&O x's 3, appropriate affect, intact judgment & insight Results CBC & Chem 7: 04/19/19 13:40 04/19/19 14:26 Labs: Abnormal Lab Results - Last 24 Hours (Table) 04/19/19 04/19/19 04/19/19 Range/Units 13:40 13:40 13:40 RBC 3.91 L (4.30-5.90) m/uL Hgb 11.0 L (13.0-17.5) gm/dL Hct 33.3 L (39.0-53.0) % RDW 16.6 H (11.5-15.5) % Neutrophils # 9.1 H (1.3-7.7) k/uL Lymphocytes # 0.6 L (1.0-4.8) k/uL ABG pCO2 (35-45) mmHg ABG HCO3 (21-25) mmol/L ABG Total CO2 (19-24) mmol/L Sodium (137-145) mmol/L Chloride (98-107) mmol/L Carbon Dioxide (22-30) mmol/L Glucose (74-99) mg/dL Plasma Lactic Acid Chang 2.1 H* (0.7-2.0) mmol/L Calcium (8.4-10.2) mg/dL AST (17-59) U/L ALT (21-72) U/L Albumin (3.5-5.0) g/dL Urine Protein Trace H (Negative) Urine Blood Trace H (Negative) Ur Leukocyte Esterase Moderate H (Negative) Urine WBC 23 H (0-5) /hpf Urine Bacteria Occasional H (None) /hpf Urine Mucus Rare H (None) /hpf 04/19/19 04/19/19 Range/Units 14:07 14:26 RBC (4.30-5.90) m/uL Hgb (13.0-17.5) gm/dL Hct (39.0-53.0) % RDW (11.5-15.5) % Neutrophils # (1.3-7.7) k/uL Lymphocytes # (1.0-4.8) k/uL ABG pCO2 47 H (35-45) mmHg ABG HCO3 32 H (21-25) mmol/L ABG Total CO2 33 H (19-24) mmol/L Sodium 134 L (137-145) mmol/L Chloride 97 L (98-107) mmol/L Carbon Dioxide 31 H (22-30) mmol/L Glucose 72 L (74-99) mg/dL Plasma Lactic Acid Chang (0.7-2.0) mmol/L Calcium 8.0 L (8.4-10.2) mg/dL AST 14 L (17-59) U/L ALT 14 L (21-72) U/L Albumin 2.7 L (3.5-5.0) g/dL Urine Protein (Negative) Urine Blood (Negative) Ur Leukocyte Esterase (Negative) Urine WBC (0-5) /hpf Urine Bacteria (None) /hpf Urine Mucus (None) /hpf Chest x-ray: report reviewed, image reviewed CT scan - chest: report reviewed, image reviewed (Finding as noted above) Assessment and Plan Assessment: Severe sepsis Confusion altered mental status due to sepsis Right-sided postobstructive pneumonia Urinary tract infection Right-sided perihilar 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
[2019-04-19] MEDS: INSULIN ASPART (NovoLOG) 100 UNIT/ML VIAL SQ SCH (18:59)
[2019-04-19] MEDS: ACETAMINOPHEN TAB 325 MG TAB PO PRN (20:27)
[2019-04-19] MEDS: SODIUM CHLORIDE 0.9% 1,000 ML IV SCH (20:29)
[2019-04-19] MEDS: HYDROcodone/APAP 5-325MG 1 EACH TAB PO PRN (22:15)
[2019-04-19] MEDS: ATORVASTATIN 20 MG TAB PO SCH (22:15)
[2019-04-20] MEDS: VANCOMYCIN 1,750 MG in SODIUM CHLORIDE 0.9% 500 ML 500 ML IVPB SCH ×2 (06:35→21:56)
[2019-04-20] MEDS: PANTOPRAZOLE 40 MG TABLET PO SCH (06:44)
[2019-04-20 07:04] LABS: Glucose,Whole Blood 242 mg/dL (75-99)
[2019-04-20] MEDS: INSULIN ASPART (NovoLOG) 100 UNIT/ML VIAL SQ SCH ×3 (07:11→18:11)
[2019-04-20] MEDS: SODIUM CHLORIDE 0.9% 1,000 ML IV SCH ×2 (07:12→20:12)
--- NOTE | 2019-04-20 08:50 | CDI ---
Documentation Clarification Form Date: 04/20/2019 8:30:33 AM From: Charline Butler RN CCDS Admit Date: 04/19/2019 4:28:00 PM Patient Name: Miguel Grace Visit Number: [id number] Discharge Date: ATTENTION: The Clinical Documentation Specialists (CDI) and [facility] Coding Staff appreciate your assistance in clarifying documentation. Please respond to the clarification below the line at the bottom and electronically sign. The CDI & [facility] Coding staff will review the response and follow-up if needed. Please note: Queries are made part of the Legal Health Record. If you have any questions, please contact the author of this message via ITS. Dr. Miguel Parra Confusion altered mental status due to sepsis is documented in your H & P 04/19/2019 History/Risk Factors: 83-year-old male presents to the ED for Mental Status and increasing oxygen supply. VSS 115/57 90 103 22 96% 6L nc 04/19/2019 13:10 Medical History DM; Gerd; HTN; [place] 2016; Sleep Apnea/Bipap; Lung Cancer Clinical Indicators: Diagnosed with Pneumonia and Severe Sepsis Labs: Lactic acid 2.1, UA moderate leukocyte esterase wbc 23; Wbc 10.6 CXR right infrahilar patchy density. scattered infiltrates left apical region and left lower lobe with small left sided pleural effusion. Treatment: 1L 0.9ns bolus, Rocephin x1; Vancomycin Ivpb In your professional opinion, please clarify the etiology of the Confusion Altered Mental Status, if known. * Metabolic Encephalopathy due to sepsis * Other condition (please specify) * Unable to determine (Last Revision: September 2017) MTDD
--- NOTE | 2019-04-20 09:08 | CDI ---
Documentation Clarification Form Date: 04/20/2019 8:51:09 AM From: Charline Butler RN CCDS Admit Date: 04/19/2019 4:28:00 PM Patient Name: Miguel Grace Visit Number: [id number] Discharge Date: ATTENTION: The Clinical Documentation Specialists (CDI) and [facility] Coding Staff appreciate your assistance in clarifying documentation. Please respond to the clarification below the line at the bottom and electronically sign. The CDI & [facility] Coding staff will review the response and follow-up if needed. Please note: Queries are made part of the Legal Health Record. If you have any questions, please contact the author of this message via ITS. Dr. Miguel Parra Per the ED report 04/19/2019 He also had increasing O2 needs.: EMS reports that the patient is not oxygen dependent History/Risk Factors 83-year-old male presents to the ED via EMS from [facility] for mental status changes and oxygen needs. Medical History Lung Cancer per ED report; Lumbar Laminectomy 04/04/2019; COPD; Sleep Apnea Tobacco use: former smoker Clinical Indicators: CXR Right infrahilar patchy density. Scattered infiltrates left apical region and left lower lobe with small left sided pleural effusion Vital signs:04/19/19 95450 90 103 22 96% 6L nasal cannula Lung/Breathing assessment: ABG/CBG: pH 7.45 pO2 84 pCO2 47 HCO3 32 Lactic Acid 2.1 Treatment: Breathing tx Ventolin PRN; 6 L nasal cannula 96% 04/19/2019 at admission decreased to 4L nasal cannula 97% 04/19/2019 In your professional opinion, can you please clarify if these findings signify one of the following conditions? * Acute Respiratory Failure * Other Diagnosis, please specify * Unable to determine Specificity: If known, further specify (if known): With hypercapnia? (pCO2 >50 and pH <7.35) With hypoxia? (pO2 <60 mm Hg or SpO2 <91% on room air) (Last Query Form Revision: February 2019) CHU
--- NOTE | 2019-04-20 09:22 | CDI ---
Documentation Clarification Form Date: 04/19/2019 9:11:14 AM From: Charline Butler RN CCDS Admit Date: 04/19/2019 4:28:00 PM Patient Name: Miguel Grace Visit Number: [id number] Discharge Date: ATTENTION: The Clinical Documentation Specialists (CDI) and [facility] Coding Staff appreciate your assistance in clarifying documentation. Please respond to the clarification below the line at the bottom and electronically sign. The CDI & [facility] Coding staff will review the response and follow-up if needed. Please note: Queries are made part of the Legal Health Record. If you have any questions, please contact the author of this message via ITS. Dr. Miguel Parra Elevated lactic acid is documented in your H &P 04/19/2019 Past medical history/Risk Factors: 83-year-old male presents to the ED with Mental Status changes and increasing oxygen needs. Medical history per ed report Lung Ca; COPD; Laminectomy 04/04/2019. Clinical Indicators: Admitting diagnosis Sepsis ABGS Ph 7.45, pCO2 47 pO2 84 HcO3 32 CO2 33; Lactic acid 2.1 Vital signs: 04/19/2019 115/57 90 103 F 22 96% 6L nasal cannula Treatment: 6L oxygen nasal cannula, 1L bolus 0.9ns In your professional opinion, can you please clarify if the above clinical indicators and treatment signify any of the following? * Lactic Acidosis * Metabolic Acidosis * Unable to determine * Other, please specify (Last Revision: March 2017) MTDD
[2019-04-20 11:51] LABS: Glucose,Whole Blood 136 mg/dL (75-99)
[2019-04-20] MEDS: HYDROcodone/APAP 5-325MG 1 EACH TAB PO PRN (14:53)
--- NOTE | 2019-04-20 16:32 | P.PN ---
Subjective Progress Note Date: 04/20/19 Principal diagnosis: Severe sepsis Confusion altered mental status due to sepsis Right-sided postobstructive pneumonia Urinary tract infection Right-sided perihilar large lung masses likely neoplasm Status post laminectomy 04/20/2019, patient seen eval reexamined during the rounds he is more awake and alert but is still requiring oxygen labs reviewed medications reviewed patient had has a known diagnosis of the lung cancer in fact as per her son-in-law was scheduled for surgery but later 1 was canceled due to hip pain and back pain, still short of breath the severity appears to have improved labs reviewed medications reviewed Objective - Vital Signs Vital signs: Vital Signs Temp 96.0 F L 04/20/19 12:00 Pulse 103 H 04/20/19 14:57 Resp 16 04/20/19 15:55 BP 141/65 04/20/19 14:57 Pulse Ox 94 L 04/20/19 14:57 Intake & Output 04/19/19 04/20/19 04/20/19 18:59 06:59 18:59 Intake Total 240 Output Total 700 Balance -700 240 Weight 106.594 kg Intake: Oral 240 Output: Urine 575 Post Void Residual 125 Other: # Voids 1 1 # Bowel Movements 1 - Exam - Constitutional General appearance: average body habitus, cooperative, disheveled, mild distress, obese - EENT Eyes: anicteric sclerae, EOMI, PERRLA, poor dentition ENT: normal oropharynx Ears: bilateral: normal - Neck Neck: normal ROM Carotids: bilateral: upstroke normal - Respiratory Respiratory: bilateral: diminished, rales - Cardiovascular Rhythm: regular Heart sounds: normal: S1, S2 - Gastrointestinal General gastrointestinal: normal bowel sounds - Integumentary Integumentary: normal turgor - Neurologic Neurologic: CNII-XII intact - Musculoskeletal Musculoskeletal: gait normal, generalized weakness, strength equal bilaterally - Psychiatric Psychiatric: A&O x's 3, appropriate affect, intact judgment & insight - Labs CBC & Chem 7: 04/19/19 13:40 04/19/19 14:26 Labs: Abnormal Lab Results - Last 24 Hours (Table) 04/20/19 04/20/19 Range/Units 07:02 11:49 POC Glucose (mg/dL) 242 H 136 H (75-99) mg/dL Microbiology - Last 24 Hours (Table) 04/19/19 13:40 Blood Culture - Preliminary Blood No Growth after 24 hours 04/19/19 13:40 Urine Culture - Preliminary Urine,Voided Assessment and Plan Assessment: Severe sepsis Confusion altered mental status due to sepsis Right-sided postobstructive pneumonia Urinary tract infection Right-sided perihilar large lung masses known neoplasm, has been worked up before patient is waiting surgery once recovered from spine surgery Status post laminectomy Plan: Broad-spectrum antibiotics with IV Zosyn, continue Vanco Gentle rehydration Continue vancomycin for now We'll discuss with patient and family when more stable about lung mass and report intervention is a 1-2 Resume home medications Further recommendations pending plan of care as per clinical response of the patient Time with Patient: Greater than 30
[2019-04-20 17:05] LABS: Glucose,Whole Blood 209 mg/dL (75-99)
[2019-04-20] MEDS: ATORVASTATIN 20 MG TAB PO SCH (20:57)
[2019-04-20] MEDS: MELATONIN 5 MG TABLET PO SCH (20:57)
[2019-04-20 21:00] LABS: Glucose,Whole Blood 119 mg/dL (75-99)
[2019-04-20 21:00] LABS: Glucose,Whole Blood 65 mg/dL (75-99)
[2019-04-21] MEDS: HYDROcodone/APAP 5-325MG 1 EACH TAB PO PRN ×3 (00:10→19:33)
[2019-04-21 06:19] LABS: Glucose,Whole Blood 178 mg/dL (75-99)
[2019-04-21] MEDS: PANTOPRAZOLE 40 MG TABLET PO SCH (06:48)
[2019-04-21 06:52] LABS: Basophils # (A) 0.1 k/uL (0-0.2); Basophils % (A) 1 %; Eosinophils # (A) 0.1 k/uL (0-0.7); Eosinophils % (A) 2 %; HCT 33.2 % (39.0-53.0); HGB 10.3 gm/dL (13.0-17.5); Hypochromasia Moderate; Lymphocytes # (A) 0.5 k/uL (1.0-4.8); Lymphocytes % (A) 9 %; MCV 87.2 fL (80.0-100.0); Mean Platelet Volume 5.7; Monocytes # (A) 0.3 k/uL (0-1.0); Monocytes % (A) 4 %; Neutrophils # (A) 5.1 k/uL (1.3-7.7); Neutrophils % (A) 82 %; Platelet Count 284 k/uL (150-450); RBC 3.81 m/uL (4.30-5.90); RDW 15.8 % (11.5-15.5); WBC 6.2 k/uL (3.8-10.6)
[2019-04-21] MEDS: INSULIN ASPART (NovoLOG) 100 UNIT/ML VIAL SQ SCH ×3 (06:52→17:58)
[2019-04-21 07:02] LABS: Albumin 3.1 g/dL (3.5-5.0); Calcium 8.3 mg/dL (8.4-10.2); Potassium 4.3 mmol/L (3.5-5.1); Total Bilirubin 0.7 mg/dL (0.2-1.3); Total Protein 7.5 g/dL (6.3-8.2)
[2019-04-21 12:02] LABS: Glucose,Whole Blood 181 mg/dL (75-99)
[2019-04-21] MEDS: VANCOMYCIN 1,750 MG in SODIUM CHLORIDE 0.9% 500 ML 500 ML IVPB SCH (12:29)
[2019-04-21 16:55] LABS: Glucose,Whole Blood 121 mg/dL (75-99)
[2019-04-21] MEDS: SODIUM CHLORIDE 0.9% 1,000 ML IV SCH (19:21)
[2019-04-21] MEDS: ATORVASTATIN 20 MG TAB PO SCH (19:31)
[2019-04-21] MEDS: MELATONIN 5 MG TABLET PO SCH (19:31)
[2019-04-21 20:18] LABS: Glucose,Whole Blood 199 mg/dL (75-99)
[2019-04-21] MEDS: PIPERACILLIN-TAZOBACTAM 3.375 GM in SODIUM CHLORIDE 0.9% 100 ML IVPB SCH (23:13)
[2019-04-22] MEDS: SODIUM CHLORIDE 0.9% 1,000 ML IV SCH ×2 (03:13→19:34)
[2019-04-22] MEDS ORDERED: VANCOMYCIN TROUGH DUE 1 EACH MISC MISCELLANE ONE (05:00)
[2019-04-22] MEDS: VANCOMYCIN 1,750 MG in SODIUM CHLORIDE 0.9% 500 ML 500 ML IVPB SCH ×2 (06:15→22:38)
[2019-04-22] MEDS: PANTOPRAZOLE 40 MG TABLET PO SCH (06:16)
[2019-04-22 06:36] LABS: Glucose,Whole Blood 208 mg/dL (75-99)
[2019-04-22] MEDS: INSULIN ASPART (NovoLOG) 100 UNIT/ML VIAL SQ SCH ×3 (06:59→17:35)
[2019-04-22] MEDS: PIPERACILLIN-TAZOBACTAM 3.375 GM in SODIUM CHLORIDE 0.9% 100 ML IVPB SCH ×2 (08:38→15:00)
--- NOTE | 2019-04-22 10:13 | P.PN ---
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 Status post laminectomy 04/21/2019, patient seen eval examined during the rounds cuff congestion is improved blood cultures are growing gram positive cocci, urine culture is po sitive for gram-negative rods final ID is pending patient is still require significant amount of oxygen on 4 L pain in the back has improved 04/20/2019, patient seen eval reexamined during the rounds he is more awake and alert but is still requiring oxygen labs reviewed medications reviewed patient had has a known diagnosis of the lung cancer in fact as per her son-in-law was scheduled for surgery but later 1 was canceled due to hip pain and back pain, still short of breath the severity appears to have improved labs reviewed medications reviewed Objective - Vital Signs Vital signs: Vital Signs Temp 98.4 F 04/21/19 19:30 Pulse 92 04/21/19 19:30 Resp 18 04/21/19 19:30 BP 133/103 04/21/19 19:30 Pulse Ox 94 L 04/21/19 19:30 Intake & Output 04/21/19 04/21/19 04/22/19 06:59 18:59 06:59 Intake Total 500 960 120 Output Total 650 Balance 500 310 120 Weight 111.5 kg Intake: Intake, IV Titration 500 Amount Vancomycin 1,750 mg In 500 Sodium Chloride 0.9% 500 ml 500 ml @ 167 mls/hr IVPB Q16H [facility] Rx#: [id number] Oral 960 120 Output: Urine 650 Other: # Voids 2 - Exam - Constitutional General appearance: average body habitus, cooperative, disheveled, mild distress, obese - EENT Eyes: anicteric sclerae, EOMI, PERRLA, poor dentition ENT: normal oropharynx Ears: bilateral: normal - Neck Neck: normal ROM Carotids: bilateral: upstroke normal - Respiratory Respiratory: bilateral: diminished, rales - Cardiovascular Rhythm: regular Heart sounds: normal: S1, S2 - Gastrointestinal General gastrointestinal: normal bowel sounds - Integumentary Integumentary: normal turgor - Neurologic Neurologic: CNII-XII intact - Musculoskeletal Musculoskeletal: gait normal, generalized weakness, strength equal bilaterally - Psychiatric Psychiatric: A&O x's 3, appropriate affect, intact judgment & insight - Labs CBC & Chem 7: 04/21/19 06:40 04/22/19 05:43 Labs: Abnormal Lab Results - Last 24 Hours (Table) 04/21/19 04/21/19 04/21/19 Range/Units 06:17 06:40 06:40 RBC 3.81 L (4.30-5.90) m/uL Hgb 10.3 L (13.0-17.5) gm/dL Hct 33.2 L (39.0-53.0) % RDW 15.8 H (11.5-15.5) % Lymphocytes # 0.5 L (1.0-4.8) k/uL Glucose 188 H (74-99) mg/dL POC Glucose (mg/dL) 178 H (75-99) mg/dL Calcium 8.3 L (8.4-10.2) mg/dL ALT 16 L (21-72) U/L Albumin 3.1 L (3.5-5.0) g/dL 04/21/19 04/21/19 04/21/19 Range/Units 11:56 16:53 20:15 RBC (4.30-5.90) m/uL Hgb (13.0-17.5) gm/dL Hct (39.0-53.0) % RDW (11.5-15.5) % Lymphocytes # (1.0-4.8) k/uL Glucose (74-99) mg/dL POC Glucose (mg/dL) 181 H 121 H 199 H (75-99) mg/dL Calcium (8.4-10.2) mg/dL ALT (21-72) U/L Albumin (3.5-5.0) g/dL Microbiology - Last 24 Hours (Table) 04/20/19 16:52 Blood Culture Gram Stain - Preliminary Blood Blood Culture - Preliminary Coagulase Negative Staph 04/19/19 13:40 Blood Culture - Preliminary Blood No Growth after 48 hours 04/20/19 16:52 Blood Culture - Final Blood 04/19/19 13:40 Urine Culture - Preliminary Urine,Voided Gram Neg Bacilli Assessment and Plan Assessment: Severe sepsis Confusion altered mental status due to sepsis Right-sided postobstructive pneumonia Urinary tract infection Right-sided perihilar large lung masses known neoplasm, has been worked up before patient is waiting surgery once recovered from spine surgery Status post laminectomy Plan: Broad-spectrum antibiotics with IV Zosyn, continue Vanco Gentle rehydration Continue vancomycin for now We'll discuss with patient and family when more stable about lung mass and report intervention is a 1-2 Resume home medications Further recommendations pending plan of care as per clinical response of the patient Time with Patient: Greater than 30
--- NOTE | 2019-04-22 10:17 | P.PN ---
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 Status post laminectomy 04/22/2019, patient seen eval examined during the rounds shortness of breath slightly better with still having cough congestion denies any chest pain labs reviewed medications reviewed care plan discussed with the nursing staff, blood cultures are cramping positive cocci coag-negative likely contamination, will keep him on vancomycin for postobstructive pneumonia and Zosyn which is covering UTI as well urine is growing gram-negative rods final ID is pending, patient appears to be in good sprits 04/21/2019, patient seen eval examined during the rounds cuff congestion is improved blood cultures are growing gram positive cocci, urine culture is p ositive for gram-negative rods final ID is pending patient is still require significant amount of oxygen on 4 L pain in the back has improved 04/20/2019, patient seen eval reexamined during the rounds he is more awake and alert but is still requiring oxygen labs reviewed medications reviewed patient had has a known diagnosis of the lung cancer in fact as per her son-in-law was scheduled for surgery but later 1 was canceled due to hip pain and back pain, still short of breath the severity appears to have improved labs reviewed medications reviewed Objective - Vital Signs Vital signs: Vital Signs Temp 98.1 F 04/22/19 08:00 Pulse 106 H 04/22/19 08:00 Resp 16 04/22/19 08:00 BP 112/59 04/22/19 08:00 Pulse Ox 95 04/22/19 08:00 Intake & Output 04/21/19 04/22/19 04/22/19 18:59 06:59 18:59 Intake Total 960 120 Output Total 650 1225 Balance 310 -1105 Weight 57.5 kg Intake: Oral 960 120 Output: Urine 650 1225 Other: # Voids 2 # Bowel Movements 1 - Exam - Constitutional General appearance: average body habitus, cooperative, disheveled, mild distress, obese - EENT Eyes: anicteric sclerae, EOMI, PERRLA, poor dentition ENT: normal oropharynx Ears: bilateral: normal - Neck Neck: normal ROM Carotids: bilateral: upstroke normal - Respiratory Respiratory: bilateral: diminished, rales - Cardiovascular Rhythm: regular Heart sounds: normal: S1, S2 - Gastrointestinal General gastrointestinal: normal bowel sounds - Integumentary Integumentary: normal turgor - Neurologic Neurologic: CNII-XII intact - Musculoskeletal Musculoskeletal: gait normal, generalized weakness, strength equal bilaterally - Psychiatric Psychiatric: A&O x's 3, appropriate affect, intact judgment & insight - Labs CBC & Chem 7: 04/21/19 06:40 04/22/19 05:43 Labs: Abnormal Lab Results - Last 24 Hours (Table) 04/21/19 04/21/19 04/21/19 Range/Units 11:56 16:53 20:15 POC Glucose (mg/dL) 181 H 121 H 199 H (75-99) mg/dL 04/22/19 Range/Units 06:33 POC Glucose (mg/dL) 208 H (75-99) mg/dL Microbiology - Last 24 Hours (Table) 04/20/19 16:52 Blood Culture Gram Stain - Preliminary Blood Blood Culture - Preliminary Coagulase Negative Staph 04/19/19 13:40 Blood Culture - Preliminary Blood No Growth after 48 hours 04/20/19 16:52 Blood Culture - Final Blood Assessment and Plan Assessment: Severe sepsis Confusion altered mental status due to sepsis Right-sided postobstructive pneumonia Urinary tract infection due to gram-negative rods, final ID is pending Positive blood culture with staph epi likely contamination Right-sided perihilar large lung masses known neoplasm, has been worked up before patient is waiting surgery once recovered from spine surgery Status post laminectomy Plan: Broad-spectrum antibiotics with IV Zosyn, continue Vanco Repeat blood culture Gentle rehydration Continue vancomycin for now We'll discuss with patient and family when more stable about lung mass and report intervention is a 1-2 Resume home medications Further recommendations pending plan of care as per clinical response of the patient Time with Patient: Greater than 30
[2019-04-22 11:58] LABS: Glucose,Whole Blood 143 mg/dL (75-99)
[2019-04-22] MEDS: HYDROcodone/APAP 5-325MG 1 EACH TAB PO PRN (14:59)
[2019-04-22] MEDS ORDERED: PIPERACILLIN-TAZOBACTAM 3.375 GM in SODIUM CHLORIDE 0.9% 100 ML IVPB SCH (16:30)
[2019-04-22 17:17] LABS: Glucose,Whole Blood 166 mg/dL (75-99)
[2019-04-22] MEDS: ATORVASTATIN 20 MG TAB PO SCH (19:59)
[2019-04-22] MEDS: ACETAMINOPHEN TAB 325 MG TAB PO PRN (19:59)
[2019-04-22] MEDS: MELATONIN 5 MG TABLET PO SCH (19:59)
[2019-04-22 20:29] LABS: Glucose,Whole Blood 74 mg/dL (75-99)
[2019-04-23] MEDS: HYDROcodone/APAP 5-325MG 1 EACH TAB PO PRN ×2 (00:42→08:32)
[2019-04-23] MEDS: SODIUM CHLORIDE 0.9% 1,000 ML IV SCH ×2 (00:44→11:31)
[2019-04-23] MEDS: PIPERACILLIN-TAZOBACTAM 3.375 GM in SODIUM CHLORIDE 0.9% 100 ML IVPB SCH ×3 (00:44→17:06)
[2019-04-23] MEDS: PANTOPRAZOLE 40 MG TABLET PO SCH (06:30)
[2019-04-23 06:48] LABS: Glucose,Whole Blood 185 mg/dL (75-99)
[2019-04-23] MEDS: INSULIN ASPART (NovoLOG) 100 UNIT/ML VIAL SQ SCH ×3 (06:49→17:06)
[2019-04-23 11:58] LABS: Hemoglobin A1C 8.8 % (4.0-6.0)
[2019-04-23 12:11] LABS: Glucose,Whole Blood 97 mg/dL (75-99)
[2019-04-23 13:27] LABS: HCT 31.8 % (39.0-53.0); HGB 9.7 gm/dL (13.0-17.5); Hypochromasia Marked; MCH 26.8 pg (25.0-35.0); MCHC 30.4 g/dL (31.0-37.0); MCV 88.1 fL (80.0-100.0); Mean Platelet Volume 6.8; Platelet Count 252 k/uL (150-450); RBC 3.62 m/uL (4.30-5.90); RDW 15.9 % (11.5-15.5); WBC 3.5 k/uL (3.8-10.6)
[2019-04-23 13:29] LABS: Calcium 8.5 mg/dL (8.4-10.2); Potassium 4.5 mmol/L (3.5-5.1)
[2019-04-23] MEDS: VANCOMYCIN 1,750 MG in SODIUM CHLORIDE 0.9% 500 ML 500 ML IVPB SCH (14:17)
[2019-04-23] MEDS: METOPROLOL TARTRATE 50 MG TAB PO SCH (14:17)
[2019-04-23] MEDS: GABAPENTIN 300 MG CAP PO SCH ×3 (14:17→20:29)
--- NOTE | 2019-04-23 15:37 | P.PN ---
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 Status post laminectomy 04/23/2019, patient seen eval examined during the rounds labs reviewed medications reviewed care plan discussed with the patient at length remains on 4 L oxygen his cough and sputum production is better and improved his mental status is improved as well he remains on broad-spectrum antibiotics, repeat blood cultures are negative so far urine cultures positive for Klebsiella pneumonia which is sensitive to Zosyn 04/22/2019, patient seen eval examined during the rounds shortness of breath slightly better with still having cough congestion denies any chest pain labs reviewed medications reviewed care plan discussed with the nursing staff, blood cultures are cramping positive cocci coag-negative likely contamination, will keep him on vancomycin for postobstructive pneumonia and Zosyn which is covering UTI as well urine is growing gram-negative rods final ID is pending, patient appears to be in good sprits 04/21/2019, patient seen eval examined during the rounds cuff congestion is improved blood cultures are growing gram positive cocci, urine culture is positive for gram-negative rods final ID is pending patient is still require significant amount of oxygen on 4 L pain in the back has improved 04/20/2019, patient seen eval reexamined during the rounds he is more awake and alert but is still requiring oxygen labs reviewed medications reviewed patient had has a known diagnosis of the lung cancer in fact as per her son-in-law was scheduled for surgery but later 1 was canceled due to hip pain and back pain, still short of breath the severity appears to have improved labs reviewed medications reviewed Objective - Vital Signs Vital signs: Vital Signs Temp 97.4 F L 04/23/19 15:23 Pulse 66 04/23/19 15:25 Resp 18 04/23/19 15:25 BP 148/76 04/23/19 15:23 Pulse Ox 97 04/23/19 15:23 Intake & Output 04/22/19 04/23/19 04/23/19 18:59 06:59 18:59 Intake Total 1060 1450 510 Output Total 875 650 100 Balance 185 800 410 Weight 109.8 kg Intake: IV 50 30 Invasive Line 1 20 Invasive Line 3 30 30 Intake, IV Titration 600 1400 Amount Piperacillin-Tazobactam 3 100 100 .375 gm In Sodium Chloride 0.9% 100 ml @ 25 mls/hr IVPB Q8HR [facility] Rx# :[id number] Sodium Chloride 0.9% 1, 800 000 ml @ 100 mls/hr IV . Q10H [facility] Rx#:[id number] Vancomycin 1,750 mg In 500 500 Sodium Chloride 0.9% 500 ml 500 ml @ 167 mls/hr IVPB Q16H [facility] Rx#: [id number] Oral 460 480 Output: Urine 875 650 100 Other: # Voids 2 2 # Bowel Movements 1 - Exam - Constitutional General appearance: average body habitus, cooperative, disheveled, mild distress, obese - EENT Eyes: anicteric sclerae, EOMI, PERRLA, poor dentition ENT: normal oropharynx Ears: bilateral: normal - Neck Neck: normal ROM Carotids: bilateral: upstroke normal - Respiratory Respiratory: bilateral: diminished, rales - Cardiovascular Rhythm: regular Heart sounds: normal: S1, S2 - Gastrointestinal General gastrointestinal: normal bowel sounds - Integumentary Integumentary: normal turgor - Neurologic Neurologic: CNII-XII intact - Musculoskeletal Musculoskeletal: gait normal, generalized weakness, strength equal bilaterally - Psychiatric Psychiatric: A&O x's 3, appropriate affect, intact judgment & insight - Labs CBC & Chem 7: 04/23/19 06:05 04/23/19 06:05 Labs: Abnormal Lab Results - Last 24 Hours (Table) 04/22/19 04/22/19 04/23/19 Range/Units 16:50 20:29 06:05 WBC (3.8-10.6) k/uL RBC (4.30-5.90) m/uL Hgb (13.0-17.5) gm/dL Hct (39.0-53.0) % MCHC (31.0-37.0) g/dL RDW (11.5-15.5) % BUN (9-20) mg/dL Glucose (74-99) mg/dL POC Glucose (mg/dL) 166 H 74 L (75-99) mg/dL Hemoglobin A1c 8.8 H (4.0-6.0) % 04/23/19 04/23/19 04/23/19 Range/Units 06:05 06:05 06:46 WBC 3.5 L (3.8-10.6) k/uL RBC 3.62 L (4.30-5.90) m/uL Hgb 9.7 L (13.0-17.5) gm/dL Hct 31.8 L (39.0-53.0) % MCHC 30.4 L (31.0-37.0) g/dL RDW 15.9 H (11.5-15.5) % BUN 7 L (9-20) mg/dL Glucose 125 H (74-99) mg/dL POC Glucose (mg/dL) 185 H (75-99) mg/dL Hemoglobin A1c (4.0-6.0) % Microbiology - Last 24 Hours (Table) 04/22/19 10:22 Blood Culture - Preliminary Blood No Growth after 24 hours 04/20/19 16:52 Blood Culture Gram Stain - Preliminary Blood Blood Culture - Preliminary Coagulase Negative Staph 04/19/19 13:40 Urine Culture - Final Urine,Voided Klebsiella pneumoniae 04/19/19 13:40 Blood Culture - Preliminary Blood No Growth after 72 hours Assessment and Plan Assessment: Severe sepsis Confusion altered mental status due to sepsis b continue to improve slowly Right-sided postobstructive pneumonia Urinary tract infection due to gram-negative rods, final ID is pending Positive blood culture with staph epi likely contamination Right-sided perihilar large lung masses known neoplasm, has been worked up before patient is waiting surgery once recovered from spine surgery Status post laminectomy Plan: Obtain a follow-up chest x-ray Broad-spectrum antibiotics with IV Zosyn, continue Vanco for now if blood cultures are negative for 48 hours will DC vancomycin Repeat blood culture Gentle rehydration Continue vancomycin for now Resume home medications Further recommendations pending plan of care as per clinical response of the patient Time with Patient: Greater than 30
[2019-04-23 16:32] LABS: Glucose,Whole Blood 190 mg/dL (75-99)
[2019-04-23] MEDS: MELATONIN 5 MG TABLET PO SCH (20:29)
[2019-04-23] MEDS: ATORVASTATIN 20 MG TAB PO SCH (20:29)
[2019-04-23] MEDS: TAMSULOSIN 0.4 MG CAP.ER.24H PO SCH (20:29)
[2019-04-23 21:00] LABS: Glucose,Whole Blood 66 mg/dL (75-99)
[2019-04-23 21:19] LABS: Glucose,Whole Blood 88 mg/dL (75-99)
[2019-04-24] MEDS: PIPERACILLIN-TAZOBACTAM 3.375 GM in SODIUM CHLORIDE 0.9% 100 ML IVPB SCH ×3 (00:03→18:19)
[2019-04-24 02:05] LABS: Glucose,Whole Blood 178 mg/dL (75-99)
[2019-04-24] MEDS: VANCOMYCIN 1,750 MG in SODIUM CHLORIDE 0.9% 500 ML 500 ML IVPB SCH (05:31)
[2019-04-24 06:38] LABS: Glucose,Whole Blood 230 mg/dL (75-99)
[2019-04-24] MEDS: PANTOPRAZOLE 40 MG TABLET PO SCH (06:55)
[2019-04-24] MEDS: INSULIN ASPART (NovoLOG) 100 UNIT/ML VIAL SQ SCH ×3 (06:55→16:45)
[2019-04-24] MEDS: GABAPENTIN 300 MG CAP PO SCH ×4 (09:29→21:18)
[2019-04-24] MEDS: METOPROLOL TARTRATE 50 MG TAB PO SCH (09:29)
[2019-04-24 11:48] LABS: Glucose,Whole Blood 117 mg/dL (75-99)
[2019-04-24 16:33] LABS: Glucose,Whole Blood 77 mg/dL (75-99)
--- NOTE | 2019-04-24 17:47 | P.PN ---
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 Status post laminectomy 04/24/2019 patient seen eval examined during the rounds labs reviewed medications reviewed patient has been getting IV Zosyn for Klebsiella pneumoniae urinary tract infection as well as postobstructive pneumonia cough congestion is slightly better able to get him an ambulate now will get a follow-up chest x-ray 04/23/2019, patient seen eval examined during the rounds labs reviewed medications reviewed care plan discussed with the patient at length remains on 4 L oxygen his cough and sputum production is better and improved his mental status is improved as well he remains on broad-spectrum antibiotics, repeat blood cultures are negative so far urine cultures positive for Klebsiella pneumonia which is sensitive to Zosyn 04/22/2019, patient seen eval examined during the rounds shortness of breath slightly better with still having cough congestion denies any chest pain labs reviewed medications reviewed care plan discussed with the nursing staff, blood cultures are cramping positive cocci coag-negative likely contamination, will keep him on vancomycin for postobstructive pneumonia and Zosyn which is covering UTI as well urine is growing gram-negative rods final ID is pending, patient appears to be in good sprits 04/21/2019, patient seen eval examined during the rounds cuff congestion is improved blood cultures are growing gram positive cocci, urine culture is positive for gram-negative rods final ID is pending patient is still require significant amount of oxygen on 4 L pain in the back has improved 04/20/2019, patient seen eval reexamined during the rounds he is more awake and alert but is still requiring oxygen labs reviewed medications reviewed patient had has a known diagnosis of the lung cancer in fact as per her son-in-law was scheduled for surgery but later 1 was canceled due to hip pain and back pain, still short of breath the severity appears to have improved labs reviewed medications reviewed Objective - Vital Signs Vital signs: Vital Signs Temp 97.5 F L 04/24/19 15:12 Pulse 74 04/24/19 15:13 Resp 16 04/24/19 15:13 BP 128/66 04/24/19 15:12 Pulse Ox 94 L 04/24/19 15:12 Intake & Output 1004/24/19 04/24/19 18:59 06:59 18:59 Intake Total 750 290 480 Output Total 100 1100 350 Balance 650 -810 130 Weight 110.6 kg Intake: IV 30 10 Invasive Line 3 30 10 Oral 720 280 480 Output: Urine 100 1100 350 Other: # Voids 100 - Exam - Constitutional General appearance: average body habitus, cooperative, disheveled, mild distres s, obese - EENT Eyes: anicteric sclerae, EOMI, PERRLA, poor dentition ENT: normal oropharynx Ears: bilateral: normal - Neck Neck: normal ROM Carotids: bilateral: upstroke normal - Respiratory Respiratory: bilateral: diminished, rales - Cardiovascular Rhythm: regular Heart sounds: normal: S1, S2 - Gastrointestinal General gastrointestinal: normal bowel sounds - Integumentary Integumentary: normal turgor - Neurologic Neurologic: CNII-XII intact - Musculoskeletal Musculoskeletal: gait normal, generalized weakness, strength equal bilaterally - Psychiatric Psychiatric: A&O x's 3, appropriate affect, intact judgment & insight - Labs CBC & Chem 7: 04/23/19 06:05 04/24/19 05:41 Labs: Abnormal Lab Results - Last 24 Hours (Table) 04/23/19 04/24/19 04/24/19 Range/Units 20:59 02:04 05:41 Creatinine 1.62 H (0.66-1.25) mg/dL POC Glucose (mg/dL) 66 L 178 H (75-99) mg/dL 04/24/19 04/24/19 Range/Units 06:37 11:47 Creatinine (0.66-1.25) mg/dL POC Glucose (mg/dL) 230 H 117 H (75-99) mg/dL Microbiology - Last 24 Hours (Table) 04/19/19 13:40 Blood Culture - Preliminary Blood No Growth after 120 hours 04/22/19 10:22 Blood Culture - Preliminary Blood No Growth after 48 hours 04/20/19 16:52 Blood Culture Gram Stain - Final Blood Blood Culture - Final Staphylococcus epidermidis Assessment and Plan Assessment: Severe sepsis Confusion altered mental status due to sepsis b continue to improve slowly Right-sided postobstructive pneumonia Urinary tract infection due to gram-negative rods, final ID is pending Positive blood culture with staph epi likely contamination Right-sided perihilar large lung masses known neoplasm, has been worked up before patient is waiting surgery once recovered from spine surgery Status post laminectomy Plan: Obtain a follow-up chest x-ray Broad-spectrum antibiotics with IV Zosyn, continue Vanco for now if blood cultures are negative for 48 hours will DC vancomycin Repeat blood culture Gentle rehydration Continue vancomycin for now Resume home medications Further recommendations pending plan of care as per clinical response of the patient Time with Patient: Greater than 30
[2019-04-24 21:15] LABS: Glucose,Whole Blood 151 mg/dL (75-99)
[2019-04-24] MEDS: ATORVASTATIN 20 MG TAB PO SCH (21:18)
[2019-04-24] MEDS: MELATONIN 5 MG TABLET PO SCH (21:18)
[2019-04-24] MEDS: TAMSULOSIN 0.4 MG CAP.ER.24H PO SCH (21:18)
--- NOTE | 2019-04-24 22:37 | PN ---
PROGRESS NOTE 83-year-old white male with acute encephalopathy secondary to community-acquired pneumonia, aspiration pneumonia and UTI drug-resistant. Remains on IV vancomycin. Infectious disease consult is pending. He does not want to go to rehab. Physical therapy did not help him. He wants to go back home with [facility] Physical therapy at home. Cardiovascular S1-S2. Lungs clear. GI soft. Neuro: Alert, oriented x3. ASSESSMENT: 1. Acute encephalopathy, improved. 2. Aspiration pneumonia. 3. Acute drug-resistant urinary tract infection. 4. Generalized debility. Continue current IV antibiotics, PT/OT, possible rehab. Possible discharge home when cleared by Infectious Disease. I will have his home nursing that he already has from [facility] to see him and do physical therapy at home which is his wishes. MMODL / IJN: [id number] /
[2019-04-25] MEDS: PIPERACILLIN-TAZOBACTAM 3.375 GM in SODIUM CHLORIDE 0.9% 100 ML IVPB SCH ×3 (00:14→17:43)
[2019-04-25] MEDS: PANTOPRAZOLE 40 MG TABLET PO SCH (05:23)
[2019-04-25] MEDS ORDERED: VANCOMYCIN 1,750 MG in SODIUM CHLORIDE 0.9% 500 ML 500 ML IVPB SCH (06:00)
[2019-04-25] MEDS: INSULIN ASPART (NovoLOG) 100 UNIT/ML VIAL SQ SCH ×3 (06:58→17:43)
[2019-04-25 06:59] LABS: Glucose,Whole Blood 188 mg/dL (75-99)
--- NOTE | 2019-04-25 07:42 | XR ---
EXAMINATION TYPE: XR chest 1V portable DATE OF EXAM: 04/25/2019 COMPARISON: 04/19/2019 HISTORY: Right lower lobe pneumonia TECHNIQUE: Single frontal view of the chest is obtained. FINDINGS: Right perihilar opacity remains. Mild pulmonary vascular congestion is exaggerated by low lung volumes. New retrocardiac opacity and obscuration of the left costophrenic angle. Diffuse osseou s demineralization. IMPRESSION: Persistent right perihilar opacity most compatible with pneumonia and new retrocardiac o pacity with stable trace left pleural effusion. Opacity likely represents atelectasis. Fluid overload is seen with mild pulmonary vascular congestion exaggerated by low lung volumes.
[2019-04-25] MEDS: METOPROLOL TARTRATE 50 MG TAB PO SCH (09:14)
[2019-04-25] MEDS: GABAPENTIN 300 MG CAP PO SCH ×4 (09:14→20:03)
[2019-04-25 09:38] LABS: Anisocytosis Slight; HCT 29.7 % (39.0-53.0); HGB 9.3 gm/dL (13.0-17.5); Hypochromasia Moderate; MCH 27.2 pg (25.0-35.0); MCHC 31.4 g/dL (31.0-37.0); MCV 86.8 fL (80.0-100.0); Platelet Count 223 k/uL (150-450); RBC 3.42 m/uL (4.30-5.90); RDW 16.6 % (11.5-15.5); WBC 4.3 k/uL (3.8-10.6)
[2019-04-25 09:54] LABS: Calcium 8.4 mg/dL (8.4-10.2); Potassium 4.6 mmol/L (3.5-5.1)
[2019-04-25 10:57] VITALS: BMI 35.1
[2019-04-25] MEDS ORDERED: VANCOMYCIN IV PER PHARMACY 1 EACH MISC MISCELLANE PRN (11:20)
[2019-04-25 12:05] LABS: Glucose,Whole Blood 183 mg/dL (75-99)
[2019-04-25 17:04] LABS: Glucose,Whole Blood 100 mg/dL (75-99)
[2019-04-25] MEDS: MELATONIN 5 MG TABLET PO SCH (20:03)
[2019-04-25] MEDS: TAMSULOSIN 0.4 MG CAP.ER.24H PO SCH (20:03)
[2019-04-25] MEDS: ATORVASTATIN 20 MG TAB PO SCH (20:03)
[2019-04-25 20:57] LABS: Glucose,Whole Blood 80 mg/dL (75-99)
--- NOTE | 2019-04-25 23:35 | P.CONS ---
History of Present Illness - Reason for Consult Consult date: 04/25/19 Discharge home antibiotic recommendation Requesting physician: Miguel Parra - Chief Complaint Mental status changes pain to the right leg - History of Present Illness Patient is 83 year male who is status post laminectomy at the -4 and discectomy done on 04/04/2019 after worse the patient was sent to rehab for rehabilitation the patient was brought into the ER at [facility] on 04/19/2019 for management of acute mental status changes and hypoxemia patient was noticed to have paroxysmal with O2 sats in the 80s and the patient was noticed to be confused no clear history of any high-grade fever or chills on arrival of the EMS O2 was applied and this has come up to 90 patient subsequently was brought into the ER and was noticed to be febrile with temperature of 103F the patient was tachycardic with heart rate is 115 patient was evaluated by the ER physician. Continuous EKG done that was negative for PE however did shows right perihilar mass in this patient did have history of lung cancer there is no evidence of any consolidation patient CT of the lumbosacral spine did not show any evidence of any fluid collection patient has been treated with the Zosyn the patient blood cultures can be positive with staph epi and vancomycin has been admitted, patient follow-up blood culture negative patient urine has been finalized with Klebsiella patient who came to the hospital with a normal kidney function nose creatinine is up to 2.34 was also seen the patient before discharge anybody recommendation. Patient currently with no fever no chills but no specifically what symptom brought into the hospital his main symptom has been pain to the right leg and thigh area which is currently resolved patient denies having any chest pain shortness of breath or cough no nausea no vomiting no abdominal pain and no diarrhea Review of Systems Positive point has been mentioned in the HPI rest of the systems are negative Past Medical History Past Medical History: COPD, Diabetes Mellitus, GERD/Reflux, Hypertension, Myocardial Infarction ([place]), Renal Disease, Sleep Apnea/CPAP/BIPAP, Vascular Disorder Additional Past Medical History / Comment(s): NEUROPATHY FEET, decreased kidney function, uses CPAP Last Myocardial Infarction Date:: 2015 History of Any Multi-Drug Resistant Organisms: MRSA Year Discovered:: 02/07/19 MDRO Source:: MRSA BRONCH Past Surgical History: Heart Catheterization, Heart Catheterization With Stent, Tonsillectomy Additional Past Surgical History / Comment(s): EGD, COLONOSCOPY, sinus surg. x3, chest/lung biopsy, LAMINECTOMY Past Anesthesia/Blood Transfusion Reactions: No Reported Reaction Date of Last Stent Placement:: 2015 Past Psychological History: No Psychological Hx Reported Smoking Status: Former smoker Past Alcohol Use History: None Reported Past Drug Use History: None Reported - Past Family History Father Family Medical History: Cancer, Myocardial Infarction ([place]) Additional Family Medical History / Comment(s): Father had bone cancer. He at the age of 80yrs. Mother Family Medical History: AFIB, Myocardial Infarction ([place]) Additional Family Medical History / Comment(s): Mother when she 82 years old and of a heart attack Medications and Allergies Home Medications Medication Instructions Recorded Confirmed Type Omeprazole [PriLOSEC] 20 mg PO DAILY@0600 06/11/14 04/19/19 History Simvastatin [Zocor] 40 mg PO HS 06/11/14 04/19/19 History Gabapentin [Neurontin] 300 mg PO QID 10/16/17 04/19/19 History Metoprolol Tartrate [Lopressor] 50 mg PO DAILY 10/16/17 04/19/19 History Albuterol Nebulized [Ventolin 2.5 mg INHALATION RT-QID PRN 11/02/18 04/19/19 History Nebulized] Cholecalciferol [Vitamin D3 (25 1,000 unit PO DAILY@1700 11/02/18 04/19/19 History Mcg = 1000 Iu)] INSULIN LISPRO (HumaLOG) [humaLOG] 20 units SQ AC-TID 11/03/18 04/19/19 History Furosemide [Lasix] 40 mg PO BID@0600,1400 03/27/19 04/19/19 History Repaglinide 1 mg PO TID@0800,1200,1700 03/27/19 04/19/19 History Acetaminophen Tab [Tylenol] 650 mg PO Q6HR PRN tab 04/06/19 04/19/19 Rx Bisacodyl [Dulcolax] 10 mg RECTAL DAILY PRN 04/19/19 04/19/19 History HYDROcodone/APAP 5-325MG [[place] 1 tab PO Q8HR PRN 04/19/19 04/19/19 History 5-325] Hydrocortisone Cream 1 applic TOPICAL BID PRN MDD 04/19/19 04/19/19 History [Hydrocortisone 1% Cream] ABD/BACK/GROIN Magnesium Hydroxide [Milk of 2,400 mg PO DAILY PRN 04/19/19 04/19/19 History Magnesia] Na Phos,M-B/Na Phos,Di-Ba [Fleet 133 ml RECTAL DAILY PRN 04/19/19 04/19/19 History Adult] Oxymetazoline 0.05% Nasl [place] 2 spray NASAL BID@0800,1700 04/19/19 04/19/19 History [Afrin 0.05% Nasal [place]] Tamsulosin HCl [Flomax] 0.4 mg PO HS 04/19/19 04/19/19 History Allergies Allergy/AdvReac Type Severity Reaction Status Date / Time No Known Allergies Allergy Verified 04/19/19 13:41 Physical Exam Vitals: Vital Signs Temp Pulse Resp BP Pulse Ox 04/25/19 12:00 84 18 04/25/19 08:00 97.7 F 84 18 122/65 96 04/25/19 04:00 97.1 F L 69 18 124/60 95 04/25/19 00:00 97.7 F 65 18 130/69 94 L 04/24/19 20:00 96.6 F L 74 18 134/66 95 04/24/19 15:13 74 16 04/24/19 15:12 97.5 F L 74 16 128/66 94 L Intake and Output 04/24/19 04/25/19 04/25/19 22:59 06:59 14:59 Intake Total 240 Output Total 350 1200 Balance -110 -1200 Intake: Oral 240 Output: Urine 350 1200 Other: Voiding Method Urinal Weight 111 kg 111 kg GENERAL DESCRIPTION: An elderly male lying in bed, no distress. No tachypnea or accessory muscle of respiration use. HEENT: Shows Pallor , no scleral icterus. Oral mucous membrane is dry. No pharyngeal erythema or thrush NECK: Trachea central, no thyromegaly. LUNGS: Unlabored breathing. Clear to auscultation anteriorly. No wheeze or crackle. HEART: S1, S2, regular rate and rhythm. No loud murmur ABDOMEN: Soft, no tenderness , guarding or rigidity, no organomegaly EXTREMITIES: No edema of feet. MUSCULOSKELETAL: Lumbar spine incision is currently healed with no swelling no redness SKIN: No rash, no masses palpable. NEUROLOGICAL: The patient is awake, alert, oriented x3, mood and affect normal. Results CBC & Chem 7: 04/25/19 09:18 04/25/19 09:18 Labs: Abnormal Lab Results - Last 24 Hours (Table) 04/24/19 04/25/19 04/25/19 Range/Units 21:13 06:58 09:18 RBC 3.42 L (4.30-5.90) m/uL Hgb 9.3 L (13.0-17.5) gm/dL Hct 29.7 L (39.0-53.0) % RDW 16.6 H (11.5-15.5) % Chloride (98-107) mmol/L Creatinine (0.66-1.25) mg/dL Glucose (74-99) mg/dL POC Glucose (mg/dL) 151 H 188 H (75-99) mg/dL 04/25/19 04/25/19 Range/Units 09:18 11:54 RBC (4.30-5.90) m/uL Hgb (13.0-17.5) gm/dL Hct (39.0-53.0) % RDW (11.5-15.5) % Chloride 109 H (98-107) mmol/L Creatinine 2.34 H (0.66-1.25) mg/dL Glucose 262 H (74-99) mg/dL POC Glucose (mg/dL) 183 H (75-99) mg/dL Microbiology - Last 24 Hours (Table) 04/22/19 10:22 Blood Culture - Preliminary Blood No Growth after 72 hours 04/19/19 13:40 Blood Culture - Preliminary Blood No Growth after 120 hours Assessment and Plan Assessment: 1-patient presented to the hospital with sepsis in this patient who did have a fever tachycardia associated urinary tract infection in this patient presented to hospital with acute mental status changes patient did have some hypoxemia but no evidence of any PE or consolidation on a CT angiogram and the patient denies having any respiratory symptoms. Culture subsequently has been finalized with Klebsiella which is a sensitive pathogen 2-positive blood culture with staph epi likely skin contamination 3-patient with acute renal failure likely secondary to vancomycin and Zosyn combination (1) Sepsis Current Visit: Yes Status: Acute Code(s): A41.9 - SEPSIS, UNSPECIFIED ORGANISM SNOMED Code(s): 40344774 (2) Acute urinary tract infection Current Visit: Yes Status: Acute Code(s): N39.0 - URINARY TRACT INFECTION, SITE NOT SPECIFIED SNOMED Code(s): 900766603 Plan: 1-recommend to hold the discharge at least today to make sure there is no further worsening of his kidney function repeat a BMP for the morning and also check ultrasound of the kidney in the plantar area 2-discontinue the vancomycin and continue Zosyn for now 3-if the patient continued to improve clinically therapy with oral Cipro to finish treatment for his UTI We will follow on clinical condition and cultures to further adjust medication if needed Thank you for this consultation will follow this patient with you Time with Patient: Greater than 30
[2019-04-26] MEDS: PIPERACILLIN-TAZOBACTAM 3.375 GM in SODIUM CHLORIDE 0.9% 100 ML IVPB SCH ×4 (00:25→23:00)
[2019-04-26 06:19] LABS: Glucose,Whole Blood 159 mg/dL (75-99)
[2019-04-26 06:52] LABS: Glucose,Whole Blood 172 mg/dL (75-99)
[2019-04-26] MEDS: INSULIN ASPART (NovoLOG) 100 UNIT/ML VIAL SQ SCH ×3 (06:53→17:08)
[2019-04-26] MEDS: PANTOPRAZOLE 40 MG TABLET PO SCH (06:53)
[2019-04-26 07:12] LABS: Calcium 8.9 mg/dL (8.4-10.2); Potassium 4.9 mmol/L (3.5-5.1)
[2019-04-26 07:17] LABS: Vancomycin,Random 29.9 ug/mL
[2019-04-26 07:18] LABS: Anisocytosis Slight; Basophils % (A) 1 %; Eosinophils # (A) 0.2 k/uL (0-0.7); Eosinophils % (A) 5 %; HCT 33.5 % (39.0-53.0); HGB 10.4 gm/dL (13.0-17.5); Hypochromasia Moderate; Lymphocytes % (A) 19 %; MCH 26.9 pg (25.0-35.0); MCV 86.6 fL (80.0-100.0); Mean Platelet Volume 6.1; Monocytes # (A) 0.3 k/uL (0-1.0); Monocytes % (A) 6 %; Neutrophils # (A) 3.3 k/uL (1.3-7.7); Neutrophils % (A) 67 %; Platelet Count 242 k/uL (150-450); RBC 3.87 m/uL (4.30-5.90); RDW 16.4 % (11.5-15.5)
[2019-04-26] MEDS: METOPROLOL TARTRATE 50 MG TAB PO SCH (07:56)
[2019-04-26] MEDS: GABAPENTIN 300 MG CAP PO SCH ×4 (07:56→20:40)
--- NOTE | 2019-04-26 09:50 | US ---
EXAMINATION TYPE: US kidneys/renal and bladder DATE OF EXAM: 04/26/2019 COMPARISON: CT 10/17/2017 CLINICAL HISTORY: 83-year-old male UTI and elevated Cr. TECHNIQUE: Multiple sonographic images of the kidneys and bladder are obtained. FINDINGS: EXAM MEASUREMENTS: Right Kidney: 11.3 x 6.8 x 5.8 cm Left Kidney: 12.6 x 6.1 x 6.0 cm Post Void Residual Volume: 21.6 mL Right Kidney: Round hypoechoic area in the upper pole shows posterior through-transmission and is epi pected to represent a cyst measuring 1.6 x 1.3 x 1.3 cm. This was present back on 10/17/2017 CT as wel l compatible with a benign etiology. No hydronephrosis. Left Kidney: No hydronephrosis. Bladder: wnl Bilateral Jets seen: No Normal Post Void Residual: Yes IMPRESSION: 1. No hydronephrosis. 2. Increased postvoid bladder volume of 22 mL still falls within acceptable limits. 3. Incidental 1.6 cm right upper pole renal cyst.
--- NOTE | 2019-04-26 11:29 | P.NPCON ---
History of Present Illness - Reason for Consult acute renal failure - History of Present Illness Reason for consultation: Acute kidney injury History of present illness: Patient is an 83-year-old male seen in renal consultation for acute kidney injury. Patient's baseline creatinine is near 1. Renal function has been worsening the last few days. Creatinine today is up to 2.48. Patient was sent from rehab facility due to altered mental status. He was noted to have UTI with urine culture positive for Klebsiella and is maintained on IV antibiotics. One set of blood culture was positive for staph epidermidis as well. Patient was maintained on IV vancomycin and Zosyn. Patient's vancomycin level was noted to be 29.9 from today. Vancomycin has not been discontinued. Patient has good urine output. No hematuria or dysuria. No vomiting or diarrhea. Denies chest pain or shortness of breath. He is nonoliguric and alert. He denies regular use of nonsteroidals. Denies family history of renal disease. Patient has history of insulin-dependent diabetes mellitus. Patient also received IV dye for a CTA done April 19. Vital signs are stable. General: The patient appeared well nourished and normally developed. HEENT: Head exam is unremarkable. Neck is without jugular venous distension. LUNGS: Lungs are clear to auscultation and percussion. Breath sounds decreased. HEART: Rate and Rhythm are regular. First and second heart sounds normal. No murmurs, rubs or gallops. ABDOMEN: Abdominal exam reveals normal bowel sounds. Non-tender and non- distended. No evidence of peritonitis. EXTREMITITES: No clubbing, cyanosis, or edema. Past Medical History Past Medical History: COPD, Diabetes Mellitus, GERD/Reflux, Hypertension, Myocardial Infarction ([place]), Renal Disease, Sleep Apnea/CPAP/BIPAP, Vascular Disorder Additional Past Medical History / Comment(s): NEUROPATHY FEET, decreased kidney function, uses CPAP Last Myocardial Infarction Date:: 2015 History of Any Multi-Drug Resistant Organisms: MRSA Date of last positivie culture/infection: 02/07/19 MDRO Source:: MRSA BRONCH Past Surgical History: Heart Catheterization, Heart Catheterization With Stent, Tonsillectomy Additional Past Surgical History / Comment(s): EGD, COLONOSCOPY, sinus surg. x3, chest/lung biopsy, LAMINECTOMY Past Anesthesia/Blood Transfusion Reactions: No Reported Reaction Date of Last Stent Placement:: 2015 Past Psychological History: No Psychological Hx Reported Smoking Status: Former smoker Past Alcohol Use History: None Reported Past Drug Use History: None Reported - Past Family History Father Family Medical History: Cancer, Myocardial Infarction ([place]) Additional Family Medical History / Comment(s): Father had bone cancer. He at the age of 80yrs. Mother Family Medical History: AFIB, Myocardial Infarction ([place]) Additional Family Medical History / Comment(s): Mother when she 82 years old and of a heart attack Medications and Allergies Home Medications Medication Instructions Recorded Confirmed Type Omeprazole [PriLOSEC] 20 mg PO DAILY@0600 06/11/14 04/19/19 History Simvastatin [Zocor] 40 mg PO HS 06/11/14 04/19/19 History Gabapentin [Neurontin] 300 mg PO QID 10/16/17 04/19/19 History Metoprolol Tartrate [Lopressor] 50 mg PO DAILY 10/16/17 04/19/19 History Albuterol Nebulized [Ventolin 2.5 mg INHALATION RT-QID PRN 11/02/18 04/19/19 History Nebulized] Cholecalciferol [Vitamin D3 (25 1,000 unit PO DAILY@1700 11/02/18 04/19/19 History Mcg = 1000 Iu)] INSULIN LISPRO (HumaLOG) [humaLOG] 20 units SQ AC-TID 11/03/18 04/19/19 History Furosemide [Lasix] 40 mg PO BID@0600,1400 03/27/19 04/19/19 History Repaglinide 1 mg PO TID@0800,1200,1700 03/27/19 04/19/19 History Acetaminophen Tab [Tylenol] 650 mg PO Q6HR PRN tab 04/06/19 04/19/19 Rx Bisacodyl [Dulcolax] 10 mg RECTAL DAILY PRN 04/19/19 04/19/19 History HYDROcodone/APAP 5-325MG [[place] 1 tab PO Q8HR PRN 04/19/19 04/19/19 History 5-325] Hydrocortisone Cream 1 applic TOPICAL BID PRN MDD 04/19/19 04/19/19 History [Hydrocortisone 1% Cream] ABD/BACK/GROIN Magnesium Hydroxide [Milk of 2,400 mg PO DAILY PRN 04/19/19 04/19/19 History Magnesia] Na Phos,M-B/Na Phos,Di-Ba [Fleet 133 ml RECTAL DAILY PRN 04/19/19 04/19/19 Hist ory Adult] Oxymetazoline 0.05% Nasl [place] 2 spray NASAL BID@0800,1700 04/19/19 04/19/19 History [Afrin 0.05% Nasal [place]] Tamsulosin HCl [Flomax] 0.4 mg PO HS 04/19/19 04/19/19 History Allergies Allergy/AdvReac Type Severity Reaction Status Date / Time No Known Allergies Allergy Verified 04/19/19 13:41 Physical Exam Vitals: Vital Signs Temp Pulse Resp BP Pulse Ox 04/26/19 08:00 18 04/26/19 07:38 96.9 F L 92 18 142/74 04/26/19 03:15 97.8 F 75 16 156/71 94 L 04/25/19 23:20 97.7 F 80 18 141/68 94 L 04/25/19 19:50 97.6 F 95 18 132/80 95 04/25/19 16:00 97.6 F 73 18 165/72 96 04/25/19 12:00 97.5 F L 68 18 133/62 96 Intake and Output 04/25/19 04/26/19 04/26/19 22:59 06:59 14:59 Intake Total 720 240 Output Total 300 925 Balance 420 -925 240 Intake: Oral 720 240 Output: Urine 300 925 Other: Voiding Method Urinal Urinal Urinal # Voids 2 1 Weight 110.7 kg Results - Lab Results Most recent lab results ABG pH 7.45 (7.35-7.45) 04/19/19 14:07 ABG pCO2 47 mmHg (35-45) H 04/19/19 14:07 ABG pO2 84 mmHg (83-108) 04/19/19 14:07 ABG HCO3 32 mmol/L (21-25) H 04/19/19 14:07 ABG O2 Saturation 96.9 % (94-97) 04/19/19 14:07 Calcium 8.9 mg/dL (8.4-10.2) 04/26/19 06:24 04/26/19 06:24 04/26/19 06:24 Assessment and Plan Plan: Assessment: 1. Acute kidney injury secondary to ATN secondary to contrast-induced nephropathy as well as component of vancomycin toxicity. Baseline creatinine is near 1 and is up to 2.4 today. No hydronephrosis noted on kidney ultrasound. 2. UTI. Urine culture positive for Klebsiella maintained on IV antibiotics. Infectious disease following. 3. Insulin-dependent diabetes mellitus. Plan: Avoid nephrotoxins. Vancomycin has been discontinued. Encouraged oral intake. Anticipate discharge soon. Check BMP in 2-3 days postdischarge. Follow up outpatient in the next 1-2 weeks. Thank you for the consultation. I will continue to follow the patient with you during his hospital stay.
[2019-04-26 11:59] LABS: Glucose,Whole Blood 158 mg/dL (75-99)
--- NOTE | 2019-04-26 15:07 | PN ---
PROGRESS NOTE DATE OF SERVICE: 04/26/2019 REASON FOR FOLLOWUP: 1. Urinary tract infection. 2. Positive blood culture. INTERVAL HISTORY: The patient is currently afebrile. Patient is breathing comfortably. The patient denies having any chest pain or shortness of breath. Very minimal cough. No nausea, no vomiting. No abdominal pain, no diarrhea. PHYSICAL EXAMINATION: Blood pressure 145/68 with a pulse of 52, temperature 96.4, 94% 2 L nasal cannula. General description is an elderly male, up in the chair in no distress. RESPIRATORY SYSTEM: Unlabored breathing. Decreased breath sounds in the bases, no wheeze. HEART: S1, S2. Regular rate and rhythm. ABDOMEN: Soft, no tenderness. EXTREMITIES: No edema of the feet. LABS: Hemoglobin is 10.4, white count 5.0, BUN of 13, creatinine is 2.48. DIAGNOSTIC IMPRESSION AND PLAN: 1. Patient admitted to the hospital with fevers, sepsis, source likely urinary with urine shows Klebsiella pneumonia, +/-pneumonia. Overall improvement on Zosyn. Will finish therapy with oral antibiotic. 2. Positive blood culture with Staph epi, likely skin contamination as the patient vancomycin has been discontinued. MMODL / IJN: [id number] /
--- NOTE | 2019-04-26 15:55 | P.CONS ---
History of Present Illness - Reason for Consult Consult date: 04/26/19 Lung cancer - Chief Complaint I have lung cancer - History of Present Illness Miguel Grace is an 83-year-old male with past medical history of COPD and lung cancer who is status post lumbar laminectomy on April 04. He was initially diagnosed after an abnormal CT of the chest for SOB. PET/CT on 12/30/18 visaulized a 5.2cm hypermetabolic right hilar mass. There were prominent subcm mediastinal nodes that were not hypermetabolic. He was taken for a bronchoscopy and biopsy on 02/07/19 that was consistent with squamous cell carcinoma. He did undergo evaluation with thoracic surgery and was planned for a right middle lobectomy after cardiac clearance and mediastinoscopy. Miguel was felt to be an appropriate surgical candidate. Mediastinoscopy of R4 adn L5 returned benign. Unfortunately he presented to the ED iwth severe lumbar back pain on 03/27/19 before any definitive treatment of his lung cancer. MRI revealed severe canal stenosis. He was sent to [facility] for rehab. He had a change in mental status and increasing O2 needs. EMS reports that patient is not oxygen dependent. Staff reported that he was saturating in the 80s. He was placed on 2 L and improved to 92%. Review of Systems Constitutional: Reports chronic pain, Reports fatigue, Reports weight loss Cardiovascular: Denies chest pain, Denies shortness of breath Respiratory: Reports cough, Reports cough with sputum, Reports home oxygen Musculoskeletal: Reports low back pain Psychiatric: Reports confusion Past Medical History Past Medical History: COPD, Diabetes Mellitus, GERD/Reflux, Hypertension, Myocardial Infarction ([place]), Renal Disease, Sleep Apnea/CPAP/BIPAP, Vascular Disorder Additional Past Medical History / Comment(s): NEUROPATHY FEET, decreased kidney function, uses CPAP Last Myocardial Infarction Date:: 2015 History of Any Multi-Drug Resistant Organisms: MRSA Year Discovered:: 02/07/19 MDRO Source:: MRSA BRONCH Past Surgical History: Heart Catheterization, Heart Catheterization With Stent, Tonsillectomy Additional Past Surgical History / Comment(s): EGD, COLONOSCOPY, sinus surg. x3, chest/lung biopsy, LAMINECTOMY Past Anesthesia/Blood Transfusion Reactions: No Reported Reaction Date of Last Stent Placement:: 2015 Past Psychological History: No Psychological Hx Reported Smoking Status: Former smoker Past Alcohol Use History: None Reported Past Drug Use History: None Reported - Past Family History Father Family Medical History: Cancer, Myocardial Infarction ([place]) Additional Family Medical History / Comment(s): Father had bone cancer. He at the age of 80yrs. Mother Family Medical History: AFIB, Myocardial Infarction ([place]) Additional Family Medical History / Comment(s): Mother when she 82 years old and of a heart attack Medications and Allergies Home Medications Medication Instructions Recorded Confirmed Type Omeprazole [PriLOSEC] 20 mg PO DAILY@0600 06/11/14 04/19/19 History Simvastatin [Zocor] 40 mg PO HS 06/11/14 04/19/19 History Gabapentin [Neurontin] 300 mg PO QID 10/16/17 04/19/19 History Metoprolol Tartrate [Lopressor] 50 mg PO DAILY 10/16/17 04/19/19 History Albuterol Nebulized [Ventolin 2.5 mg INHALATION RT-QID PRN 11/02/18 04/19/19 History Nebulized] Cholecalciferol [Vitamin D3 (25 1,000 unit PO DAILY@1700 11/02/18 04/19/19 History Mcg = 1000 Iu)] INSULIN LISPRO (HumaLOG) [humaLOG] 20 units SQ AC-TID 11/03/18 04/19/19 History Furosemide [Lasix] 40 mg PO BID@0600,1400 03/27/19 04/19/19 History Repaglinide 1 mg PO TID@0800,1200,1700 03/27/19 04/19/19 History Acetaminophen Tab [Tylenol] 650 mg PO Q6HR PRN tab 04/06/19 04/19/19 Rx Bisacodyl [Dulcolax] 10 mg RECTAL DAILY PRN 04/19/19 04/19/19 History HYDROcodone/APAP 5-325MG [[place] 1 tab PO Q8HR PRN 04/19/19 04/19/19 History 5-325] Hydrocortisone Cream 1 applic TOPICAL BID PRN MDD 04/19/19 04/19/19 History [Hydrocortisone 1% Cream] ABD/BACK/GROIN Magnesium Hydroxide [Milk of 2,400 mg PO DAILY PRN 04/19/19 04/19/19 History Magnesia] Na Phos,M-B/Na Phos,Di-Ba [Fleet 133 ml RECTAL DAILY PRN 04/19/19 04/19/19 History Adult] Oxymetazoline 0.05% Nasl [place] 2 spray NASAL BID@0800,1700 04/19/19 04/19/19 History [Afrin 0.05% Nasal [place]] Tamsulosin HCl [Flomax] 0.4 mg PO HS 04/19/19 04/19/19 History Allergies Allergy/AdvReac Type Severity Reaction Status Date / Time No Known Allergies Allergy Verified 04/19/19 13:41 Physical Exam Vitals: Vital Signs Temp Pulse Resp BP Pulse Ox 04/26/19 12:00 96.4 F L 62 18 145/68 94 L 04/26/19 11:57 18 04/26/19 08:00 18 04/26/19 07:38 96.9 F L 92 18 142/74 04/26/19 03:15 97.8 F 75 16 156/71 94 L 04/25/19 23:20 97.7 F 80 18 141/68 94 L 04/25/19 19:50 97.6 F 95 18 132/80 95 04/25/19 16:00 97.6 F 73 18 165/72 96 Intake and Output 04/26/19 04/26/19 04/26/19 06:59 14:59 22:59 Intake Total 600 Output Total 925 600 Balance -925 0 Intake: Oral 600 Output: Urine 925 600 Other: Voiding Method Urinal Urinal # Voids 1 1 Weight 110.7 kg - Respiratory Respiratory: right: diminished, rhonchi, left: CTA - Cardiovascular Rhythm: regular - Neurologic Neurologic: CNII-XII intact - Psychiatric A&Ox2 Results CBC & Chem 7: 04/26/19 06:24 04/26/19 06:24 Labs: Abnormal Lab Results - Last 24 Hours (Table) 04/25/19 04/26/19 04/26/19 Range/Units 16:53 06:18 06:24 RBC (4.30-5.90) m/uL Hgb (13.0-17.5) gm/dL Hct (39.0-53.0) % RDW (11.5-15.5) % Creatinine 2.48 H (0.66-1.25) mg/dL Glucose 165 H (74-99) mg/dL POC Glucose (mg/dL) 100 H 159 H (75-99) mg/dL 04/26/19 04/26/19 04/26/19 Range/Units 06:24 06:51 11:56 RBC 3.87 L (4.30-5.90) m/uL Hgb 10.4 L (13.0-17.5) gm/dL Hct 33.5 L (39.0-53.0) % RDW 16.4 H (11.5-15.5) % Creatinine (0.66-1.25) mg/dL Glucose (74-99) mg/dL POC Glucose (mg/dL) 172 H 158 H (75-99) mg/dL Microbiology - Last 24 Hours (Table) 04/22/19 10:22 Blood Culture - Preliminary Blood No Growth after 96 hours 04/19/19 13:40 Blood Culture - Final Blood No Growth after 144 hours Assessment and Plan Assessment: 83 Year old with a stage IIB lung cancer and current admission for sepsis and acute renal failure. Plan: Will continue to follow patient as he may not be an appropriate candidate for lobectomy based on current performance status. Should he be seen as not fit for definitive surgery concurrent chemoradiation would be optimal in this setting. We will see Miguel back on 05/08/19@930 for subsequent treatment decision making.
[2019-04-26 16:36] LABS: Glucose,Whole Blood 173 mg/dL (75-99)
[2019-04-26 20:35] LABS: Glucose,Whole Blood 81 mg/dL (75-99)
[2019-04-26] MEDS: MELATONIN 5 MG TABLET PO SCH (20:40)
[2019-04-26] MEDS: TAMSULOSIN 0.4 MG CAP.ER.24H PO SCH (20:40)
[2019-04-26] MEDS: ATORVASTATIN 20 MG TAB PO SCH (20:40)
[2019-04-27] MEDS: PANTOPRAZOLE 40 MG TABLET PO SCH (06:29)
[2019-04-27 07:17] LABS: Glucose,Whole Blood 184 mg/dL (75-99)
[2019-04-27] MEDS: INSULIN ASPART (NovoLOG) 100 UNIT/ML VIAL SQ SCH ×2 (07:19→12:12)
[2019-04-27 07:31] LABS: Anisocytosis Slight; Basophils # (A) 0.1 k/uL (0-0.2); Basophils % (A) 1 %; Eosinophils # (A) 0.2 k/uL (0-0.7); Eosinophils % (A) 4 %; HCT 31.6 % (39.0-53.0); HGB 9.8 gm/dL (13.0-17.5); Hypochromasia Moderate; Lymphocytes % (A) 17 %; MCH 26.8 pg (25.0-35.0); MCHC 31.1 g/dL (31.0-37.0); MCV 86.3 fL (80.0-100.0); Mean Platelet Volume 5.8; Monocytes # (A) 0.3 k/uL (0-1.0); Monocytes % (A) 6 %; Neutrophils # (A) 4.1 k/uL (1.3-7.7); Neutrophils % (A) 70 %; Platelet Count 228 k/uL (150-450); RBC 3.66 m/uL (4.30-5.90); RDW 16.5 % (11.5-15.5); WBC 5.8 k/uL (3.8-10.6)
[2019-04-27 07:43] LABS: Potassium 5.1 mmol/L (3.5-5.1)
[2019-04-27 07:44] LABS: Calcium 8.7 mg/dL (8.4-10.2); Magnesium 1.6 mg/dL (1.6-2.3); Total Bilirubin 0.4 mg/dL (0.2-1.3); Total Protein 7.1 g/dL (6.3-8.2)
[2019-04-27] MEDS: GABAPENTIN 300 MG CAP PO SCH ×2 (08:12→12:36)
[2019-04-27] MEDS: METOPROLOL TARTRATE 50 MG TAB PO SCH (08:13)
--- NOTE | 2019-04-27 08:55 | P.PN ---
Subjective Patient is seen in follow-up for acute kidney injury. Renal function is mildly worse. Creatinine 2.6 today. Urine output is good. Denies chest pain or shortness of breath. Oral intake is good. Eager to be discharged. Vital signs are stable. General: The patient appeared well nourished and normally developed. HEENT: Head exam is unremarkable. Neck is without jugular venous distension. LUNGS: Lungs are clear to auscultation and percussion. Breath sounds decreased. HEART: Rate and Rhythm are regular. First and second heart sounds normal. No murmurs, rubs or gallops. ABDOMEN: Abdominal exam reveals normal bowel sounds. Non-tender and non- distended. No evidence of peritonitis. EXTREMITITES: No clubbing, cyanosis, or edema. Objective - Vital Signs Vital signs: Vital Signs Temp 96.4 F L 04/27/19 08:00 Pulse 87 04/27/19 08:00 Resp 18 04/27/19 08:02 BP 144/66 04/27/19 08:00 Pulse Ox 94 L 04/27/19 08:00 Intake & Output 04/26/19 04/27/19 04/27/19 18:59 06:59 18:59 Intake Total 840 240 Output Total 1200 1425 Balance -360 -1185 Weight 108.8 kg Intake: Oral 840 240 Output: Urine 1200 1425 Other: Voiding Method Urinal Urinal # Voids 1 - Labs CBC & Chem 7: 04/27/19 06:31 04/27/19 06:31 Labs: Abnormal Lab Results - Last 24 Hours (Table) 04/26/19 04/26/19 04/27/19 Range/Units 11:56 16:35 06:31 RBC (4.30-5.90) m/uL Hgb (13.0-17.5) gm/dL Hct (39.0-53.0) % RDW (11.5-15.5) % Creatinine 2.60 H (0.66-1.25) mg/dL Glucose 184 H (74-99) mg/dL POC Glucose (mg/dL) 158 H 173 H (75-99) mg/dL AST 16 L (17-59) U/L ALT 16 L (21-72) U/L Albumin 3.0 L (3.5-5.0) g/dL 04/27/19 04/27/19 Range/Units 06:31 07:05 RBC 3.66 L (4.30-5.90) m/uL Hgb 9.8 L (13.0-17.5) gm/dL Hct 31.6 L (39.0-53.0) % RDW 16.5 H (11.5-15.5) % Creatinine (0.66-1.25) mg/dL Glucose (74-99) mg/dL POC Glucose (mg/dL) 184 H (75-99) mg/dL AST (17-59) U/L ALT (21-72) U/L Albumin (3.5-5.0) g/dL Microbiology - Last 24 Hours (Table) 04/22/19 10:22 Blood Culture - Preliminary Blood No Growth after 96 hours Assessment and Plan Plan: Assessment: 1. Acute kidney injury secondary to ATN secondary to contrast-induced nephropathy as well as component of vancomycin toxicity. Baseline creatinine is near 1 and is up to 2.6 today. No hydronephrosis noted on kidney ultrasound. 2. UTI. Urine culture positive for Klebsiella maintained on IV antibiotics. Infectious disease following. 3. Insulin-dependent diabetes mellitus. Plan: Avoid nephrotoxins. Vancomycin has been discontinued. Encouraged oral intake. Anticipate discharge soon. Check BMP in 2-3 days postdischarge. Follow up outpatient in the next 1-2 weeks.
[2019-04-27] MEDS: PIPERACILLIN-TAZOBACTAM 3.375 GM in SODIUM CHLORIDE 0.9% 100 ML IVPB SCH (09:10)
--- NOTE | 2019-04-27 10:08 | P.PN ---
Subjective Progress Note Date: 04/25/19 This is an 83-year-old gentleman admitted with acute metabolic encephalopathy secondary to community-acquired and aspiration pneumonia, acute UTI. Maintained on IV antibiotics of IV vancomycin. Worsening renal function, with creatinine up to 2.34. Chest x-ray reporting persistent right perihilar opacity with pneumonia/CHF. Evaluated by PT/OT with no subacute rehab recommended at discharge. Chest x-ray reporting persistent right perihilar opacity with pneumonia.Denies chest pain, palpitations or pilar rtness of breath. Denies lightheadedness, dizziness or focal deficits. Afebrile, normal WBC. Hemoglobin 9.3 Objective - Vital Signs Vital signs: Vital Signs Temp 97.5 F L 04/25/19 12:00 Pulse 68 04/25/19 12:00 Resp 18 04/25/19 12:00 BP 133/62 04/25/19 12:00 Pulse Ox 96 04/25/19 12:00 Intake & Output 04/24/19 04/25/19 04/25/19 18:59 06:59 18:59 Intake Total 480 240 240 Output Total 350 1200 Balance 130 -960 240 Weight 111 kg 111 kg Intake: Oral 480 240 240 Output: Urine 350 1200 Other: Voiding Method Urinal - Exam PHYSICAL EXAM: VITAL SIGNS: [] GENERAL: HEENT: Conjunctivae normal. eyes normal. NECK: No JVD. No thyroid enlargement. No LNs CARDIOVASCULAR: S1, S2 regular.. No murmur RESPIRATION: Breath sounds diminished in the bases. No rhonchi or crackles. No bronchial breathing. ABDOMEN: Soft, nontender . No guarding. no masses palpable. No ascites, No hepatosplenomegaly.Bowel sounds heard. LEGS: No edema. no swelling PSYCHIATRY: Alert and oriented X3, mood and affect normal. NERVOUS SYSTEM: Cranial N 2-12 grossly normal. Moves all 4 limbs. Diffuse weakness No focal deficits. Strength and sensation grossly intact.. Skin: no lesions, no rash Joints: No active swelling. No inflammation. Lymphatic system. No LN neck axilla or groin. Microbiology 04/22/19 10:22 Blood Blood Culture - Preliminary No Growth after 96 hours 04/19/19 13:40 Blood Blood Culture - Final No Growth after 144 hours 04/20/19 16:52 Blood Blood Culture Gram Stain - Final 04/20/19 16:52 Blood Blood Culture - Final Staphylococcus epidermidis 04/19/19 13:40 Urine,Voided Urine Culture - Final Klebsiella pneumoniae 04/20/19 16:52 Blood Blood Culture - Final - Labs CBC & Chem 7: 04/27/19 06:31 04/27/19 06:31 Labs: Abnormal Lab Results - Last 24 Hours (Table) 04/24/19 04/25/19 04/25/19 Range/Units 21:13 06:58 09:18 RBC 3.42 L (4.30-5.90) m/uL Hgb 9.3 L (13.0-17.5) gm/dL Hct 29.7 L (39.0-53.0) % RDW 16.6 H (11.5-15.5) % Chloride (98-107) mmol/L Creatinine (0.66-1.25) mg/dL Glucose (74-99) mg/dL POC Glucose (mg/dL) 151 H 188 H (75-99) mg/dL 04/25/19 04/25/19 Range/Units 09:18 11:54 RBC (4.30-5.90) m/uL Hgb (13.0-17.5) gm/dL Hct (39.0-53.0) % RDW (11.5-15.5) % Chloride 109 H (98-107) mmol/L Creatinine 2.34 H (0.66-1.25) mg/dL Glucose 262 H (74-99) mg/dL POC Glucose (mg/dL) 183 H (75-99) mg/dL Microbiology - Last 24 Hours (Table) 04/19/19 13:40 Blood Culture - Final Blood No Growth after 144 hours 04/22/19 10:22 Blood Culture - Preliminary Blood No Growth after 72 hours Assessment and Plan Assessment: -Sepsis secondary to postobstructive, acute community-acquired, aspiration pneumonia and UTI -Acute on chronic respiratory failure secondary to the above -Acute drug resistant UTI -Acute metabolic encephalopathy multifactorial secondary to all the above -` Lactic Acidosis -Medical debility -Acute renal failure, drug induced -Lung cancer Plan: Continue on current medication regime ,monitoring and symptomatic treatment. Infectious disease, nephrology consulted. DC vancomyci/IV antibiotics adjusted to Zosyn. Close monitoring of renal function with repeat labs ordered for a.m. Radiation oncology consulted.Further recommendations to follow. The impression and plan of care has been dictated as directed. : I performed a history and examination of this patient, discussed the same with the dictator. I agree with the dictator's note ,documented as a scribe. Any additional findings or plans will be noted.
--- NOTE | 2019-04-27 10:26 | P.PN ---
Subjective Progress Note Date: 04/27/19 This is an 83-year-old gentleman admitted with acute metabolic encephalopathy secondary to community-acquired and aspiration pneumonia, acute UTI. Maintained on IV antibiotics of IV vancomycin. Worsening renal function, with creatinine up to 2.34. Chest x-ray reporting persistent right perihilar opacity with pneumonia/CHF. Evaluated by PT/OT with no subacute rehab recommended at discharge. Chest x-ray reporting persistent right perihilar opacity with pneumonia.Denies chest pain, palpitations or pilar rtness of breath. Denies lightheadedness, dizziness or focal deficits. Afebrile, normal WBC. Hemoglobin 9.3 04/26/2019 evaluated by a nephrology, infectious disease with recommendations noted and appreciated. Renal function continues to worsen with creatinine up to 2.48. Good urine output. Renal ultrasound reported no hydronephrosis. UTI cultures reporting Klebsiella pneumoniae, one blood culture reporting Staphylococcus epidermidis-most likely contaminant with repeat blood cultures reporting no growth. IV antibiotics adjusted as per infectious disease to Zosyn. Afebrile, normal WBC. Vital signs stable, maintaining O2 sats of 90s on room air. Good diet intake with no nausea or vomiting. Denies abdominal pain. Occasional nonproductive cough. Objective - Vital Signs Vital signs: Vital Signs Temp 96.4 F L 04/26/19 12:00 Pulse 62 04/26/19 12:00 Resp 18 04/26/19 12:00 BP 145/68 04/26/19 12:00 Pulse Ox 94 L 04/26/19 12:00 Intake & Output 04/25/19 04/26/19 04/26/19 18:59 06:59 18:59 Intake Total 840 360 600 Output Total 600 1225 600 Balance 240 -865 0 Weight 111 kg 110.7 kg Intake: Oral 840 360 600 Output: Urine 600 1225 600 Other: Voiding Method Urinal Urinal Urinal # Voids 1 1 - Exam PHYSICAL EXAM: VITAL SIGNS: [As above] GENERAL: Sitting up in bed, no acute distress HEENT: Conjunctivae normal. eyes normal. Oral mucosa moist. NECK: No JVD. No thyroid enlargement. No LNs CARDIOVASCULAR: S1, S2 regular.No murmur, rubs or gallops. RESPIRATION: Breath sounds diminished in the bases. No rhonchi or crackles. No ABDOMEN: Soft, nontender . No guarding. no masses palpable.Bowel sounds heard. LEGS: No edema. no swelling PSYCHIATRY: Alert and oriented X3, mood and affect normal. NERVOUS SYSTEM: Cranial N 2-12 grossly normal. Moves all 4 limbs. No focal deficits. Strength and sensation grossly intact.. Skin: no rash Microbiology 04/22/19 10:22 Blood Blood Culture - Preliminary No Growth after 96 hours 04/19/19 13:40 Blood Blood Culture - Final No Growth after 144 hours 04/20/19 16:52 Blood Blood Culture Gram Stain - Final 04/20/19 16:52 Blood Blood Culture - Final Staphylococcus epidermidis 04/19/19 13:40 Urine,Voided Urine Culture - Final Klebsiella pneumoniae 04/20/19 16:52 Blood Blood Culture - Final - Labs CBC & Chem 7: 04/27/19 06:31 04/27/19 06:31 Labs: Abnormal Lab Results - Last 24 Hours (Table) 04/25/19 04/26/19 04/26/19 Range/Units 16:53 06:18 06:24 RBC (4.30-5.90) m/uL Hgb (13.0-17.5) gm/dL Hct (39.0-53.0) % RDW (11.5-15.5) % Creatinine 2.48 H (0.66-1.25) mg/dL Glucose 165 H (74-99) mg/dL POC Glucose (mg/dL) 100 H 159 H (75-99) mg/dL 04/26/19 04/26/19 04/26/19 Range/Units 06:24 06:51 11:56 RBC 3.87 L (4.30-5.90) m/uL Hgb 10.4 L (13.0-17.5) gm/dL Hct 33.5 L (39.0-53.0) % RDW 16.4 H (11.5-15.5) % Creatinine (0.66-1.25) mg/dL Glucose (74-99) mg/dL POC Glucose (mg/dL) 172 H 158 H (75-99) mg/dL Microbiology - Last 24 Hours (Table) 04/22/19 10:22 Blood Culture - Preliminary Blood No Growth after 96 hours 04/19/19 13:40 Blood Culture - Final Blood No Growth after 144 hours Assessment and Plan Assessment: -Sepsis secondary to postobstructive, acute community-acquired, aspiration pneumonia and UTI -Acute on chronic respiratory failure secondary to the above -Acute UTI with Klebsiella pneumoniae -Acute metabolic encephalopathy multifactorial secondary to all the above -`Lactic Acidosis -Medical debility -Acute renal failure, baseline creatinine 1 , secondary to ATN related to CTA contrast as well as drug induced. -Lung cancer Plan: Continue on current medication regime ,monitoring and symptomatic simba atment. IV antibiotics as per infectious disease. No nephrotoxins with close monitoring of renal function with repeat labs ordered for a.m. Radiation oncology consult in place, recommendations pending. Discharge planning in progress pending radiation oncology recommendations, renal improvement/s tabilizing. The impression and plan of care has been dictated as directed. : I performed a history and examination of this patient, discussed the same with the dictator. I agree with the dictator's note ,documented as a scribe. Any additional findings or plans will be noted.
[2019-04-27 11:57] VITALS: RESP 17
[2019-04-27 11:58] VITALS: BP 135/72; PULSE 67; TEMP 96.8
[2019-04-27 12:05] LABS: Glucose,Whole Blood 133 mg/dL (75-99)
--- NOTE | 2019-04-27 12:08 | P.PN ---
Subjective Progress Note Date: 04/27/19 This is an 83-year-old gentleman admitted with acute metabolic encephalopathy secondary to community-acquired and aspiration pneumonia, acute UTI. Maintained on IV antibiotics of IV vancomycin. Worsening renal function, with creatinine up to 2.34. Chest x-ray reporting persistent right perihilar opacity with pneumonia/CHF. Evaluated by PT/OT with no subacute rehab recommended at discharge. Chest x-ray reporting persistent right perihilar opacity with pneumonia.Denies chest pain, palpitations or pilar rtness of breath. Denies lightheadedness, dizziness or focal deficits. Afebrile, normal WBC. Hemoglobin 9.3 04/26/2019 evaluated by a nephrology, infectious disease with recommendations noted and appreciated. Renal function continues to worsen with creatinine up to 2.48. Good urine output. Renal ultrasound reported no hydronephrosis. UTI cultures reporting Klebsiella pneumoniae, one blood culture reporting Staphylococcus epidermidis-most likely contaminant with repeat blood cultures reporting no growth. IV antibiotics adjusted as per infectious disease to Zosyn. Afebrile, normal WBC. Vital signs stable, maintaining O2 sats of 90s on room air. Good diet intake with no nausea or vomiting. Denies abdominal pain. Occasional nonproductive cough. 04/27/2019 evaluated by oncology radiation with recommendations for radiation if not candidate for lobectomy- follow-up visit scheduled. Creatinine mildly worse today, up to 2.6. Continues to have good urine output. Good diet intake with no nausea vomiting or diarrhea. Denies abdominal pain. Denies chest pain, palpitations or shortness of breath. Denies lightheadedness dizziness or focal deficits. Afebrile, normal WBC. Objective - Vital Signs Vital signs: Vital Signs Temp 96.4 F L 04/27/19 08:00 Pulse 87 04/27/19 08:00 Resp 18 04/27/19 08:02 BP 144/66 04/27/19 08:00 Pulse Ox 94 L 04/27/19 08:00 Intake & Output 04/26/19 04/27/19 04/27/19 18:59 06:59 18:59 Intake Total 840 240 120 Output Total 1200 1425 Balance -360 -1185 120 Weight 108.8 kg Intake: Oral 840 240 120 Output: Urine 1200 1425 Other: Voiding Method Urinal Urinal # Voids 1 - Exam PHYSICAL EXAM: VITAL SIGNS: [As above] GENERAL: Sitting up in bed, no acute distress HEENT: Conjunctivae normal. eyes normal. Oral mucosa moist. NECK: No JVD. No thyroid enlargement. No LNs CARDIOVASCULAR: S1, S2 regular.No murmur, rubs or gallops. RESPIRATION: Breath sounds diminished in the bases. No rhonchi or crackles. No wheezing ABDOMEN: Soft, nontender . No guarding. no masses palpable.Bowel sounds heard. LEGS: No edema. no swelling . No clubbing, no cyanosis. PSYCHIATRY: Alert and oriented X3, mood and affect normal. NERVOUS SYSTEM: Cranial N 2-12 grossly normal. Moves all 4 limbs. No focal deficits. Strength and sensation grossly intact.. Skin: no rash - Labs CBC & Chem 7: 04/27/19 06:31 04/27/19 06:31 Labs: Abnormal Lab Results - Last 24 Hours (Table) 04/26/19 04/26/19 04/27/19 Range/Units 11:56 16:35 06:31 RBC (4.30-5.90) m/uL Hgb (13.0-17.5) gm/dL Hct (39.0-53.0) % RDW (11.5-15.5) % Creatinine 2.60 H (0.66-1.25) mg/dL Glucose 184 H (74-99) mg/dL POC Glucose (mg/dL) 158 H 173 H (75-99) mg/dL AST 16 L (17-59) U/L ALT 16 L (21-72) U/L Albumin 3.0 L (3.5-5.0) g/dL 04/27/19 04/27/19 Range/Units 06:31 07:05 RBC 3.66 L (4.30-5.90) m/uL Hgb 9.8 L (13.0-17.5) gm/dL Hct 31.6 L (39.0-53.0) % RDW 16.5 H (11.5-15.5) % Creatinine (0.66-1.25) mg/dL Glucose (74-99) mg/dL POC Glucose (mg/dL) 184 H (75-99) mg/dL AST (17-59) U/L ALT (21-72) U/L Albumin (3.5-5.0) g/dL Microbiology - Last 24 Hours (Table) 04/22/19 10:22 Blood Culture - Preliminary Blood No Growth after 96 hours Assessment and Plan Assessment: -Sepsis secondary to postobstructive, acute community-acquired, aspiration pneumonia and UTI -Acute on chronic respiratory failure secondary to the above -Acute UTI with Klebsiella pneumoniae -Acute metabolic encephalopathy multifactorial secondary to all the above -`Lactic Acidosis -Medical debility -Acute renal failure, baseline creatinine 1 , secondary to ATN related to CTA contrast as well as drug induced. -Lung cancer Plan: Continue on current medication regime ,monitoring and symptomatic treatment. IV antibiotics as per infectious disease. No nephrotoxins with close monitoring of renal function with repeat labs ordered for a.m. Radiation oncology recommendations noted and appreciated. Discharge planning in progress pending renal improvement/stabilizing-not yet cleared by nephrology. The impression and plan of care has been dictated as directed. : I performed a history and examination of this patient, discussed the same with the dictator. I agree with the dictator's note ,documented as a scribe. Any additional findings or plans will be noted.
--- NOTE | 2019-04-27 14:02 | PN ---
PROGRESS NOTE DATE OF SERVICE: 04/27/2019 REASON FOR FOLLOWUP: Klebsiella pneumoniae UTI and possible pneumonia. INTERVAL HISTORY: The patient is currently afebrile. Patient is breathing comfortably. The patient denies having any chest pain. No shortness of breath or cough. No nausea, no vomiting. No abdominal pain, no diarrhea. PHYSICAL EXAMINATION: Blood pressure is 135/72 with a pulse of 67, temperature 96.8. He is 99% on 2 L nasal cannula. General description is an elderly male, up in the chair in no distress. RESPIRATORY SYSTEM: Unlabored breathing with decreased breath sounds at the bases, no wheeze. HEART: S1, S2. Regular rate and rhythm. ABDOMEN: Soft, no tenderness. LABS: Hemoglobin is 9.8, white count of 5.8. BUN of 13, creatinine 2.60. DIAGNOSTIC IMPRESSION AND PLAN: 1. Patient admitted to the hospital with a fever with concern for possible UTI plus- minus pneumonia. Patient showed overall clinical improvement. Currently on Zosyn. Transition to oral Augmentin at discharge. Finish course of therapy. 2. Positive blood culture, Staph epi, likely contamination, no need for specific treatment for the same. Family at the bedside, questions were answered. MMODL / IJN: [id number] /
--- NOTE | 2019-04-27 15:14 | P.DS ---
Providers Date of admission: 04/19/19 16:28 Expected date of discharge: 04/27/19 Attending physician: Miguel Parra Consults: 04/25/19 12:29 Consult Physician Routine Consulting Provider: Tom Patel Consult Reason/Comments: elevated creat Do you want consulting provider notified?: Yes 04/25/19 12:30 Consult Physician Routine Consulting Provider: Calin Wills Consult Reason/Comments: recommendation for discharge home abx Do you want consulting provider notified?: Yes 04/25/19 16:27 Consult Physician Routine Consulting Provider: Aly Michael Consult Reason/Comments: pete ca with medisti. lymph., sq cell ca Do you want consulting provider notified?: Yes 04/25/19 20:21 Consult Physician Routine Consulting Provider: Calin Wills Consult Reason/Comments: home abs Do you want consulting provider notified?: Yes 04/26/19 15:58 Consult Physician Routine Consulting Provider: Mukul Yuan Consult Reason/Comments: consideration outpt chemoradiation Do you want consulting provider notified?: Yes Primary care physician: [facility] Course: Final Diagnoses: -Sepsis secondary to postobstructive, acute community-acquired, aspiration pneumonia and UTI -Acute on chronic respiratory failure secondary to the above -Acute UTI with Klebsiella pneumoniae -Acute metabolic encephalopathy multifactorial secondary to all the above -`Lactic Acidosis -Medical debility -Acute renal failure, baseline creatinine 1 , secondary to ATN related to CTA contrast as well as drug induced. -Lung cancer Hospital course:This is an 83-year-old gentleman admitted with acute metabolic encephalopathy secondary to community-acquired and aspiration pneumonia, acute UTI. Maintained on IV antibiotics of IV vancomycin. Worsening renal function, with creatinine up to 2.34. Chest x-ray reporting persistent right perihilar opacity with pneumonia/CHF. Evaluated by PT/OT with no subacute rehab recommended at discharge. Chest x-ray reporting persistent right perihilar opacity with pneumonia.Denies chest pain, palpitations or shortness of breath. Denies lightheadedness, dizziness or focal deficits. Afebrile, normal WBC. Hemoglobin 9.3 04/26/2019 evaluated by a nephrology, infectious disease with recommendations noted and appreciated. Renal function continues to worsen with creatinine up to 2.48. Good urine output. Renal ultrasound reported no hydronephrosis. UTI cultures reporting Klebsiella pneumoniae, one blood culture reporting Staphylococcus epidermidis-most likely contaminant with repeat blood cultures reporting no growth. IV antibiotics adjusted as per infectious disease to Zosyn. Afebrile, normal WBC. Vital signs stable, maintaining O2 sats of 90s on room air. Good diet intake with no nausea or vomiting. Denies abdominal pain. Occasional nonproductive cough. 04/27/2019 evaluated by oncology radiation with recommendations for radiation if not candidate for lobectomy- follow-up visit scheduled. Creatinine mildly worse today, up to 2.6. Continues to have good urine output. Good diet intake with no nausea vomiting or diarrhea. Denies abdominal pain. Denies chest pain, palpitations or shortness of breath. Denies lightheadedness dizziness or focal deficits. Afebrile, normal WBC. Patient refuses to stay another night. Per nephrology's recommendations patient will be discharged home on Lasix 40 daily. Antibiotics of Augmentin with duration as per infectious disease at discharge. Significant clinical improvement. Patient is being discharged home in a stable condition with guarded prognosis. - Exam PHYSICAL EXAM: GENERAL: Alert and oriented 3, no acute distress CARDIOVASCULAR: S1, S2 regular.No murmur, rubs or gallops. RESPIRATION: Breath sounds diminished in the bases. No rhonchi or crackles. No wheezing ABDOMEN: Soft, nontender . No guarding. no masses palpable.Bowel sounds heard. NERVOUS SYSTEM:No focal deficits. The impression and plan of care has been dictated as directed. : I performed a history and examination of this patient, discussed the same with the dictator. I agree with the dictator's note ,documented as a scribe. Any additional findings or plans will be noted. Patient Condition at Discharge: Stable Plan - Discharge Summary Discharge Rx Participant: Yes New Discharge Prescriptions: New Furosemide [Lasix] 40 mg PO DAILY #30 tablet Amoxic-Pot Clav 875-125Mg [Augmentin 875-125] 1 tab PO BID #14 tablet Continue Simvastatin [Zocor] 40 mg PO HS Omeprazole [PriLOSEC] 20 mg PO DAILY@0600 Metoprolol Tartrate [Lopressor] 50 mg PO DAILY Gabapentin [Neurontin] 300 mg PO QID Albuterol Nebulized [Ventolin Nebulized] 2.5 mg INHALATION RT-QID PRN PRN Reason: Shortness Of Breath Cholecalciferol [Vitamin D3 (25 Mcg = 1000 Iu)] 1,000 unit PO DAILY@1700 INSULIN LISPRO (HumaLOG) [humaLOG] 20 units SQ AC-TID Acetaminophen Tab [Tylenol] 650 mg PO Q6HR PRN tab PRN Reason: Fever and/ or Mild Pain Bisacodyl [Dulcolax] 10 mg RECTAL DAILY PRN PRN Reason: Constipation Hydrocortisone Cream [Hydrocortisone 1% Cream] 1 applic TOPICAL BID PRN MDD ABD/BACK/GROIN PRN Reason: Itching Magnesium Hydroxide [Milk of Magnesia] 2,400 mg PO DAILY PRN PRN Reason: Constipation Na Phos,M-B/Na Phos,Di-Ba [Fleet Adult] 133 ml RECTAL DAILY PRN PRN Reason: Constipation Oxymetazoline 0.05% Nasl [place] [Afrin 0.05% Nasal [place]] 2 spray NASAL BID@0800,1700 Tamsulosin HCl [Flomax] 0.4 mg PO HS HYDROcodone/APAP 5-325MG [[place] 5-325] 1 tab PO Q8HR PRN PRN Reason: Moderate Pain Discontinued Furosemide [Lasix] 40 mg PO BID@0600,1400 Repaglinide 1 mg PO TID@0800,1200,1700 Discharge Medication List Omeprazole [PriLOSEC] 20 mg PO DAILY@0600 06/11/14 [History] Simvastatin [Zocor] 40 mg PO HS 06/11/14 [History] Gabapentin [Neurontin] 300 mg PO QID 10/16/17 [History] Metoprolol Tartrate [Lopressor] 50 mg PO DAILY 10/16/17 [History] Albuterol Nebulized [Ventolin Nebulized] 2.5 mg INHALATION RT-QID PRN 11/02/18 [History] Cholecalciferol [Vitamin D3 (25 Mcg = 1000 Iu)] 1,000 unit PO DAILY@1700 11/02/18 [History] INSULIN LISPRO (HumaLOG) [humaLOG] 20 units SQ AC-TID 11/03/18 [History] Acetaminophen Tab [Tylenol] 650 mg PO Q6HR PRN tab 04/06/19 [Rx] Bisacodyl [Dulcolax] 10 mg RECTAL DAILY PRN 04/19/19 [History] HYDROcodone/APAP 5-325MG [[place] 5-325] 1 tab PO Q8HR PRN 04/19/19 [History] Hydrocortisone Cream [Hydrocortisone 1% Cream] 1 applic TOPICAL BID PRN MDD ABD/BACK/GROIN 04/19/19 [History] Magnesium Hydroxide [Milk of Magnesia] 2,400 mg PO DAILY PRN 04/19/19 [History] Na Phos,M-B/Na Phos,Di-Ba [Fleet Adult] 133 ml RECTAL DAILY PRN 04/19/19 [History] Oxymetazoline 0.05% Nasl [place] [Afrin 0.05% Nasal [place]] 2 spray NASAL BID@0800,1700 04/19/19 [History] Tamsulosin HCl [Flomax] 0.4 mg PO HS 04/19/19 [History] Amoxic-Pot Clav 875-125Mg [Augmentin 875-125] 1 tab PO BID #14 tablet 04/27/19 [Rx] Furosemide [Lasix] 40 mg PO DAILY #30 tablet 04/27/19 [Rx] Follow up Appointment(s)/Referral(s): [facility], [NON-STAFF] - Eve Jensen DO [Doctor of Osteopathic Medicine] - 1 Week (f/u for laminectomy. missed appt while in hospital) Miguel Parra MD [Primary Care Provider] - 04/30/19 Tom Patel DO [STAFF PHYSICIAN] - 1 Week (BMP in 4 days ) Ambulatory/Diagnostic Orders: Complete Blood Count w/diff [LAB.AMB] Time Frame: 3 Days, Location: None Selected Activity/Diet/Wound Care/Special Instructions: Diet: Consistent carb Accu-Cheks before meals and at bedtime, maintain log intake to follow-up visit with PCP on Tuesday for further recommendations Activity: Limited until follow up
== END 2019-04-27 16:11 | disposition home health service (06) | DRG 871 ==
LOC: EC 13:06 → 3SCARD 16:28
PROVIDERS: ADMIT Family Medicine; ATTEND Family Medicine
DX: A41.51 Sepsis due to Escherichia coli [E. coli] (principal); G92 Toxic encephalopathy; J15.0 Pneumonia due to Klebsiella pneumoniae; J69.0 Pneumonitis due to inhalation of food and vomit; J96.21 Acute and chronic respiratory failure with hypoxia; N17.0 Acute kidney failure with tubular necrosis; C34.90 Malignant neoplasm of unspecified part of unspecified bronchus or lung; E87.2 Acidosis; J44.0 Chronic obstructive pulmonary disease with (acute) lower respiratory infection; N39.0 Urinary tract infection, site not specified; Z16.11 Resistance to penicillins; E11.9 Type 2 diabetes mellitus without complications; G47.30 Sleep apnea, unspecified; I11.0 Hypertensive heart disease with heart failure; I25.2 Old myocardial infarction; I50.9 Heart failure, unspecified; K21.9 Gastro-esophageal reflux disease without esophagitis; M48.061 Spinal stenosis, lumbar region without neurogenic claudication; N14.1 Nephropathy induced by other drugs, medicaments and biological substances; R65.20 Severe sepsis without septic shock; T36.8X5A Adverse effect of other systemic antibiotics, initial encounter; T50.8X5A Adverse effect of diagnostic agents, initial encounter; Z79.4 Long term (current) use of insulin; Z79.899 Other long term (current) drug therapy; Z82.49 Family history of ischemic heart disease and other diseases of the circulatory system; Z85.118 Personal history of other malignant neoplasm of bronchus and lung; Z86.718 Personal history of other venous thrombosis and embolism; Z87.891 Personal history of nicotine dependence
CPT/HCPCS: 36415; 36600; 71045; 71046; 71275; 72132; 76770; 80048; 80053; 80202; 81001; 82565; 82805; 83036; 83605; 83735; 85025; 85027; 85610; 85730; 87040; 87077; 87086; 87186; 87502; 93005; 94760; 96361; 96365; 96375; 99285

== ENCOUNTER → 2019-05-25 | Outpatient (CLI) | payer MEDICARE, OTHER ==
--- NOTE | 2019-05-28 10:35 | PE ---
EXAMINATION TYPE: PET CT fusion skull to thigh DATE OF EXAM: 05/25/2019 COMPARISON: CTA chest April 19, 2019 and older studies. PET/CT December 30, 2018. HISTORY: Right-sided Lung cancer progress study originally diagnosed February 07, 2019. TECHNIQUE: Following the intravenous administration of 11.45 mCi of F-18 FDG, whole body images are performed from the skull base to the midthigh. Images are reviewed on the computer in the coronal, a xial, and sagittal planes. Reconstructed rotating images are created on independent workstation and reviewed on the computer. A noncontrast CT is performed in conjunction with the PET scan. SCAN: Subsequent Scan FINDINGS: SKULL BASE AND NECK: No new areas of suspicious hypermetabolic uptake. CHEST, MEDIASTINUM, AND HILAR REGION: Background early moderate underlying emphysematous change is re demonstrated. There is persistent hypermetabolic mass or masslike consolidation centered right hilar region with slight suprahilar extension measuring approximately 5.2 x 3.9 cm current study image 90 n ot significantly changed in size or appearance from prior study axial image 93. Max SUV is 9.28 curre ntly. Elevated right hemidiaphragm is redemonstrated. No new areas of suspicious hypermetabolic uptak e identified. Improved aeration of groundglass opacity left upper lung from recent CTA chest noted caal ggests resolving edema and/or infiltrate. Stable prominent mediastinal lymph nodes that remain ametab olic. ABDOMEN AND PELVIS: No new areas of hypermetabolic uptake. No adrenal masses. OSSEOUS STRUCTURES: No suspicious hypermetabolic uptake. OTHER CT: Redemonstration of moderate to severe calcified plaque centered at bilateral carotid bulbs. Evidence of prior sinus surgery with residual right greater than left maxillary sinus mucosal thicke meme and moderate left ethmoid sinus mucosal thickening redemonstrated. Persistent moderate to severe three-vessel coronary artery calcification. Moderate calcified plaque of the abdominal aorta with AAA up to 3.3 cm AP diameter axial image 172. N onobstructing 6 mm stone lower pole left kidney axial image 178 is redemonstrated stable small fat-co ntaining left inguinal hernia. Multilevel spurring in the spine. Facet arthropathy lower lumbar levels. Disc space narrowing lumbosa cral junction. S-shaped scoliosis redemonstrated. IMPRESSION: Fairly stable right hilar mass/neoplasm in size and appearance, max SUV is slightly dimin ished from prior. No significant change from original CT October 17, 2017. No new areas of hypermetabol ic uptake noted.
== END | disposition home or self-care (01) ==
LOC: RADPETMAIN 13:52
PROVIDERS: ATTEND Internal Medicine
DX: C34.31 Malignant neoplasm of lower lobe, right bronchus or lung (principal); E11.9 Type 2 diabetes mellitus without complications
CPT/HCPCS: 78815; A9552

== ENCOUNTER → 2019-06-12 | Outpatient (CLI) | payer MEDICARE, OTHER ==
[2019-06-12 13:01] LABS: Partial Thromboplastin Time 27.3 sec (22.0-30.0); Prothrombin Time 10.5 sec (9.0-12.0)
[2019-06-12 13:04] LABS: Basophils # (A) 0.1 k/uL (0-0.2); Basophils % (A) 1 %; Eosinophils # (A) 0.2 k/uL (0-0.7); Eosinophils % (A) 3 %; HCT 36.4 % (39.0-53.0); HGB 11.5 gm/dL (13.0-17.5); Hypochromasia Moderate; Lymphocytes # (A) 1.3 k/uL (1.0-4.8); Lymphocytes % (A) 16 %; MCH 26.9 pg (25.0-35.0); MCHC 31.6 g/dL (31.0-37.0); MCV 85.3 fL (80.0-100.0); Mean Platelet Volume 8.9; Monocytes # (A) 0.4 k/uL (0-1.0); Monocytes % (A) 5 %; Neutrophils # (A) 6.1 k/uL (1.3-7.7); Neutrophils % (A) 74 %; Platelet Count 200 k/uL (150-450); Poikilocytosis Slight; RBC 4.27 m/uL (4.30-5.90); WBC 8.3 k/uL (3.8-10.6)
[2019-06-12 13:06] LABS: Potassium 4.5 mmol/L (3.5-5.1)
== END | disposition home or self-care (01) ==
LOC: LABPAT 11:50
PROVIDERS: ATTEND Thoracic Surgery (Cardiothoracic Vascular Surgery)
DX: Z01.812 Encounter for preprocedural laboratory examination (principal); C34.90 Malignant neoplasm of unspecified part of unspecified bronchus or lung
CPT/HCPCS: 36415; 80051; 82565; 82947; 84520; 85025; 85610; 85730

== ENCOUNTER → 2019-06-13 | Outpatient (CLI) | payer MEDICARE, OTHER ==
[2019-06-13 09:40] LABS: Appearance,Urine Cloudy (Clear); Bacteria,Urine Occasional /hpf; Bilirubin,Urine Negative (Negative); Blood,Urine Negative (Negative); Color,Urine Yellow; Glucose,Urine (UA) Negative (Negative); Hyaline Casts,Urine 6 /lpf (0-2); Ketones,Urine Negative (Negative); Leukocyte Esterase,Urine Large (Negative); Mucus,Urine Rare /hpf; Nitrite,Urine Negative (Negative); Protein,Urine Negative (Negative); Specific Gravity,Urine 1.017 (1.001-1.035); Squamous Epithelial Cell,Urine 1 /hpf (0-4); Urobilinogen,Urine <2.0 mg/dL (<2.0); WBC,Urine 108 /hpf (0-5)
== END | disposition home or self-care (01) ==
LOC: LABPAT 08:37
PROVIDERS: ATTEND Thoracic Surgery (Cardiothoracic Vascular Surgery)
DX: Z01.812 Encounter for preprocedural laboratory examination (principal); C34.90 Malignant neoplasm of unspecified part of unspecified bronchus or lung
CPT/HCPCS: 81001; 86850; 86900; 86901

== ENCOUNTER → 2019-06-15 | Outpatient (CLI) | payer MEDICARE, OTHER ==
[2019-06-15 16:21] LABS: African American GFR (CKD) 46.1 (60.0-200.0); Anion Gap 11.7 mmol/L (4.00-12.00); BUN/Creat Ratio 18.75 Ratio (12.00-20.00); Calcium 8.9 mg/dL (8.7-10.3); Carbon Dioxide 23.3 mmol/L (21.6-31.8); Non-African American GFR(CKD) 39.8 (60.0-200.0)
== END | disposition home or self-care (01) ==
LOC: LABWHC1 09:08
PROVIDERS: ATTEND Thoracic Surgery (Cardiothoracic Vascular Surgery)
DX: E11.9 Type 2 diabetes mellitus without complications (principal); N28.9 Disorder of kidney and ureter, unspecified
CPT/HCPCS: 36415; 80048

== ENCOUNTER 2019-06-21 05:44 | Inpatient (IN) | payer MEDICARE, OTHER ==
[~2019-06-21 05:44] MED LIST changes: -LIDOCAINE 1% 20 ML VIAL (10MG/ML) FOR IV START INTRADERMA PRN; -fentaNYL (PF) 50 MCG/ML 2 ML AMP IV PRN
[2019-06-21] MEDS ORDERED: LACTATED RINGERS 1,000 ML IV ONE ×3 (06:30→13:43)
[2019-06-21 06:51] LABS: Glucose,Whole Blood 167 mg/dL (75-99)
[2019-06-21] MEDS ORDERED: PROPOFOL 10 MG/ML 20 ML VIAL IV ONE (07:30)
[2019-06-21] MEDS ORDERED: fentaNYL (PF) 50 MCG/ML 2 ML AMP ONE (07:30)
[2019-06-21] MEDS ORDERED: GLYCOPYRROLATE 0.2 MG/ML 2 ML VIAL ONE (07:30)
[2019-06-21] MEDS ORDERED: LABETALOL 5 MG/ML VIAL MDV ONE (07:30)
[2019-06-21] MEDS ORDERED: ROCURONIUM BROMIDE 10 MG/ML 10 ML VIAL IV ONE (07:30)
[2019-06-21] MEDS ORDERED: HYDROmorphone (PF) 1 MG/ML ONE (07:30)
[2019-06-21] MEDS ORDERED: NEOSTIGMINE 1 MG/ML 10 ML VIAL ONE (07:30)
[2019-06-21] MEDS ORDERED: MIDAZOLAM 2 MG/2 ML VIAL ONE (07:30)
[2019-06-21] MEDS ORDERED: LIDOCAINE 1% INJ 10MG/ML (20 ML MDV) ONE (07:30)
[2019-06-21] MEDS ORDERED: PHENYLEPHRINE-0.9% NACL SYG 1 MG/10 ML SYRINGE ONE (07:30)
[2019-06-21] MEDS ORDERED: SUCCINYLCHOLINE CHLORIDE 100 MG/5 ML SYR IV ONE (07:30)
[2019-06-21] MEDS ORDERED: INSULIN REGULAR 100 UNIT/ML VIAL ONE (07:30)
[2019-06-21] MEDS ORDERED: BUPIVACAINE (PF) 0.25% 30 ML VIAL SQ ONE (08:31)
--- NOTE | 2019-06-21 08:31 | P.ANPRN ---
Procedure Note - Anesthesia - Invasive Line Right Arterial Line Time Out Performed: Yes Date of Procedure: 06/21/19 Time of Procedure: 07:37 (intraoop) Location of Patient: OR Preparation: Sterile Prep, Sterile Dressing Arterial Line Location: Radial Ultrasound Used: No Purpose - Visualization and Identification of Vasculature: No Needle Guage: 20 Image Stored and Saved: No Narrative: Arterial line placement per sterile protocol utilized. Placed intraoperatively
[2019-06-21 11:02] LABS: Glucose,Whole Blood 260 mg/dL (75-99)
--- NOTE | 2019-06-21 12:51 | P.OP ---
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 Postoperative Diagnosis: Same Procedure(s) Performed: Right VATS thoracoscopy, right thoracotomy, right bi lobectomy with mediastinal lymph node dissection (right upper and right middle lobe) Anesthesia: MELI Surgeon: Dylan Finley Torch Heater #1: Diego Alaniz Estimated Blood Loss (ml): 1,000 IV fluids (ml): 2,000 Urine output (ml): 500 Pathology: other (Right upper and middle bilobectomy for frozen section of bronchial margin returned negative, lymph node stations R4, level 7, R8, R9, R 10, R 11) Condition: stable Disposition: PACU Indications for Procedure: 83-year-old male with large hilar mass in the right upper lobe and marketed adenopathy. PET scan was negative for uptake in the lymph nodes. Surgical resection was requested and scheduled. Operative Findings: Marketed hilar and mediastinal adenopathy. Marketed adhesions in the pleural space. Dense adhesions between the fissures. Dense adhesions in the hilum. We spent 2 hours on the robot and could not successfully dissected out the hilar structures. At that point it was decided to open. Even after opening the dissection was very difficult. Successional bilobectomy was accomplished. There was no way to divide the fissure between the upper and middle lobe. Frozen section of the bronchial margins was negative. Grossly the tumor was resected without entry into the primary tumor and grossly the lymph nodes were anthracotic and benign. Description of Procedure: The patient was brought to the operating room, placed supine on the operating table, anesthetized and intubated with a double-lumen endotracheal tube. Tube was positioned with fiberoptic bronchoscopy and secured. Patient was turned in the left lateral decubitus position and the right chest sterilely prepped and draped. Patient was appropriately positioned for robotic lobectomy. 3 robotic ports were placed in the eighth interspace and a fourth in this fifth interspace posteriorly. Working port was placed anteriorly at the level of the diaphragm. CO2 insufflation was begun. The adhesions in the pleural space were taken down. These were particularly prominent posteriorly and apically. The inferior pulmonary ligament was taken down. Dissection was carried up along the pleural reflection posteriorly. R9 and R8 lymph nodes were resected. Dissection was carried out in the subcarinal region and the level VII lymph nodes were resected. There was considerable bleeding and oozing from every surface. Dissection was very difficult. Planes were very poor. We dissected now in front of the bronchus intermedius and identify the upper lobe bronchus. R 11 lymph nodes were dissected from between the upper and lobe bronchus and bronchus intermedius. Dissection was carried up superiorly above the hilum and the R 10 lymph nodes were resected. The pulmonary artery branches leading to the upper lobe were identified. Cannot easily dissected plane between the upper lobe branches of the pulmonary artery and the upper lobe bronchus. Attention was now directed anteriorly. The pulmonary veins draining the upper and middle lobe were identified. We could not dissected behind these between the pulmonary vein and pulmonary artery. At this point it was decided to open. Robot was disconnected and pulled back. The robotic ports were removed. The 3 posterior robotic ports were connected with a single incision and carried down through skin and subcutaneous tissue. Latissimus muscle was divided and the serratus muscle mobilized and retracted anteriorly. The chest was entered in the fifth interspace. Intercostal muscles the fifth interspace were undercut anteriorly and posteriorly. Rib environmental service aide was placed. Continued dissection around the pulmonary veins were able to encircle the superior pulmonary vein. This was ligated and divided with a endoscopic vascular stapler. We were now able to encircle the truncus anterior doses and ligated and divided it with a endovascular stapler. We now able to dissected around the upper lobe bronchus and ligated and divided it with a endoscopic medium thick stapler. Dissection was continued the pulmonary artery. A small branch leading to the posterior segment of the upper lobe was identified. This was doubly ligated with silk ties and divided. There was some bleeding at its base and this was oversewn with a 6-0 Prolene suture. This led to good hemostasis. We now dissected around the branch of the pulmonary artery leading to the middle lobe and ligated and divided it with a vascular stapler. We now dissected out the middle lobe bronchus resecting the hilar nodes in this area en bloc with the specimen. Bronchus was ligated and divided with a medium thick stapler. We now pleated the fissures with multiple firings of a Endo REESE thick stapler. Lobectomy specimen was brought up onto the field. Bronchoscopic margins were identified with sutures and sent to pathology for frozen section. The 4R lymph nodes were dissected out and sent for permanent section. We inflated the lung under water. The bronchus margins were without leak. There was some leak from the pulmonary parenchyma and this was treated with pro-gel. The AtriCure Endo ice system was used to cryoablated the intercostal nerves at levels 3456 and 7. Chest tubes were placed through the 2 remaining robotic ports. A 28-Latvian was placed apically and a 32-Latvian was placed posteriorly at basally. The tubes were secured with 0 Ethibond sutures and these sites were further closed with layers of Vicryl suture. Chest was again irrigated and the ribs were reapproximated with #1 Vicryl. 2 muscle layers were closed with 0 Vicryl. The subcutaneous tissue was closed with 2-0 Vicryl. Skin was closed with subcuticular stitches of Vicryl suture. Skin glue and dry sterile dressings were applied. Patient was turned supine and extubated and transferred to recovery in stable condition. Frozen section of the bronchial margins did returned negative.
[2019-06-21] MEDS: HYDROmorphone 0.5 MG/0.5 ML SYRINGE IVP PRN ×2 (13:30→13:35)
[2019-06-21] MEDS ORDERED: ePHEDrine 50 MG/ML 1 ML AMP IVP ONE (13:44)
[2019-06-21 13:53] LABS: Glucose,Whole Blood 271 mg/dL (75-99)
[2019-06-21] MEDS ORDERED: NALOXONE 0.4 MG/ML 1 ML VIAL IV PRN (14:00)
[2019-06-21] MEDS ORDERED: IPRATROPIUM-ALBUTEROL 3 ML NEB IH PRN (14:00)
[2019-06-21] MEDS ORDERED: BISACODYL 10 MG SUPP RECTAL PRN (14:00)
[2019-06-21] MEDS ORDERED: INSULIN ASPART (NovoLOG) 100 UNIT/ML VIAL SQ ONE (14:08)
[2019-06-21] MEDS: MORPHINE SULFATE 4 MG/ML SYRINGE IV ONE ×2 (14:10→14:20)
--- NOTE | 2019-06-21 14:20 | XR ---
EXAMINATION TYPE: XR chest 1V DATE OF EXAM: 06/21/2019 COMPARISON: Prior chest x-ray 04/25/2019 HISTORY: Status post middle and upper right lobectomy TECHNIQUE: frontal view of the chest is obtained on 2 images. FINDINGS: There is interval placement of a right chest tube. No sizable pneumothorax. Subcutaneous e mphysema is present. There is volume loss in the right hemithorax. Increased right paratracheal densi ty may be postoperative. Heart size is within normal limits, patient is rotated. Aorta is dense. Mini mal subsegmental basilar atelectatic changes present on the left. There are overlying cardiac leads. IMPRESSION: Satisfactory postoperative chest x-ray.
[2019-06-21 14:42] LABS: Glucose,Whole Blood 278 mg/dL (75-99)
[2019-06-21] MEDS: ACETAMINOPHEN IV (For NPO) 1,000 MG in EMPTY BAG 1 BAG IVPB SCH ×2 (15:03→20:17)
[2019-06-21 15:08] LABS: Anisocytosis Slight; Basophils % (A) 0 %; Eosinophils # (A) 0.1 k/uL (0-0.7); Eosinophils % (A) 0 %; HCT 31.5 % (39.0-53.0); Hypochromasia Moderate; Lymphocytes # (A) 1.4 k/uL (1.0-4.8); Lymphocytes % (A) 7 %; MCH 26.7 pg (25.0-35.0); MCHC 31.3 g/dL (31.0-37.0); MCV 85.3 fL (80.0-100.0); Mean Platelet Volume 9.1; Monocytes # (A) 0.6 k/uL (0-1.0); Monocytes % (A) 3 %; Neutrophils # (A) 18.4 k/uL (1.3-7.7); Neutrophils % (A) 89 %; Platelet Count 277 k/uL (150-450); Poikilocytosis Slight; RBC 3.69 m/uL (4.30-5.90); RDW 16.1 % (11.5-15.5); WBC 20.6 k/uL (3.8-10.6)
[2019-06-21] MEDS ORDERED: MORPHINE SULFATE 4 MG/ML SYRINGE IVP STA (15:10)
[2019-06-21 15:12] LABS: HGB 9.9 gm/dL (13.0-17.5)
[2019-06-21 15:13] LABS: Calcium 8.5 mg/dL (8.4-10.2); Potassium 5.1 mmol/L (3.5-5.1)
[2019-06-21] MEDS: SODIUM CHLORIDE 0.9% 1,000 ML IV SCH ×2 (15:17→16:40)
--- NOTE | 2019-06-21 15:20 | P.CNPUL ---
History of Present Illness Consult date: 06/21/19 Requesting physician: Dylan Finley Reason for consult: other (Status post right thoracotomy, right bi lobectomy, mediastinal node dissection.) Chief complaint: Status post VATS thoracoscopy, right thoracotomy, right bilo bectomy History of present illness: This is an 83-year-old white male with history of COPD, right lung cancer, stage IIB. This was diagnosed via flexible bronchoscopy and endobronchial biopsies and lavage of the right middle lobe back on 02/07/2019. His PET scan was suspicious for mediastinal involvement, however the patient underwent bronchoscopy, mediastinoscopy with lymph node biopsy by Dr. Finley on 03/22/2019. His previous PET scan showed uptake in for R and 5 all lymph nodes hence lymph node staging of the 5R and 5 all was done for confirmation of metastatic d isease. Pathology was negative on these notes. Hence the patient was referred back to see Dr. Finley, and he underwent right VATS thoracoscopy, right thoracotomy, right bilobectomy , mediastinal lymph node dissection, and postoperatively the patient was extubated, transferred to the intensive care unit, and I was asked to see him on consultation. Patient had about a liter of estimated blood loss during the surgery, his blood pressure is marginal in the ICU, it is 100/50, his heart rate is 80, patient is complaining of postsurgical pain. Mostly on the right side of the chest. Review of Systems CONSTITUTIONAL: Denies any recent significant weight loss or weight gain. EYES: Denies change in vision. EARS, NOSE, MOUTH, THROAT: Denies headaches, denies sore throat. Epistaxis. CARDIOVASCULAR: Denies chest pain, palpitations or syncopal episodes. RESPIRATORY: Right-sided chest pain postoperative pain GASTROINTESTINAL: Denies change in appetite, denies abdominal pain GENITOURINARY: Denies hematuria, denies infections. MUSKULOSKELETAL recent history of herniated disc at the level of L3-L4, patient had laminectomy and decompression. This was done on 04/04/2019. INTEGUMENTARY: Denies rash, denies eczema. NEUROLOGICAL: Denies recent memory loss, no recent seizure activity. PSYCHIATRIC: Denies anxiety, denies depression. HEMATOLOGIC/LYMPHATIC: Denies anemia, denies enlarged lymph nodes. Past Medical History Past Medical History: COPD, Diabetes Mellitus, GERD/Reflux, Hypertension, Myocardial Infarction (ND), Renal Disease, Sleep Apnea/CPAP/BIPAP, Vascular Disorder Additional Past Medical History / Comment(s): NEUROPATHY FEET, decreased kidney function, uses CPAP Last Myocardial Infarction Date:: 2015 History of Any Multi-Drug Resistant Organisms: MRSA Date of last positivie culture/infection: 02/07/19 MDRO Source:: MRSA BRONCH Past Surgical History: Heart Catheterization, Heart Catheterization With Stent, Tonsillectomy Additional Past Surgical History / Comment(s): EGD, COLONOSCOPY, sinus surg. x3, chest/lung biopsy, LAMINECTOMY Past Anesthesia/Blood Transfusion Reactions: No Reported Reaction Date of Last Stent Placement:: 2015 Smoking Status: Former smoker - Past Family History Father Family Medical History: Cancer, Myocardial Infarction (ND) Additional Family Medical History / Comment(s): Father had bone cancer. He at the age of 80yrs. Mother Family Medical History: AFIB, Myocardial Infarction (ND) Additional Family Medical History / Comment(s): Mother when she 82 years old and of a heart attack Medications and Allergies Home Medications Medication Instructions Recorded Confirmed Type Omeprazole [PriLOSEC] 20 mg PO DAILY@0600 06/11/14 06/21/19 History Simvastatin [Zocor] 40 mg PO HS 06/11/14 06/21/19 History Gabapentin [Neurontin] 300 mg PO QID 10/16/17 06/21/19 History Metoprolol Tartrate [Lopressor] 50 mg PO DAILY 10/16/17 06/21/19 History Albuterol Nebulized [Ventolin 2.5 mg INHALATION RT-QID PRN 11/02/18 06/21/19 History Nebulized] Cholecalciferol [Vitamin D3 (25 1,000 unit PO DAILY@1700 11/02/18 06/21/19 Hist ory Mcg = 1000 Iu)] INSULIN LISPRO (HumaLOG) [humaLOG] 30 units SQ TID-W/MEALS 11/03/18 06/21/19 History Acetaminophen Tab [Tylenol] 650 mg PO Q6HR PRN tab 04/06/19 06/21/19 Rx Bisacodyl [Dulcolax] 10 mg RECTAL DAILY PRN 04/19/19 06/21/19 History HYDROcodone/APAP 5-325MG [Monon 1 tab PO Q8HR PRN 04/19/19 06/21/19 History 5-325] Magnesium Hydroxide [Milk of 2,400 mg PO DAILY PRN 04/19/19 06/21/19 History Magnesia] Oxymetazoline 0.05% Nasl [place] 2 spray NASAL BID@0800,1700 04/19/19 06/21/19 History [Afrin 0.05% Nasal [place]] Tamsulosin HCl [Flomax] 0.4 mg PO HS 04/19/19 06/21/19 History Furosemide [Lasix] 20 mg PO DAILY 06/15/19 06/21/19 History Aspirin [Adult Low Dose Aspirin EC] 81 mg PO DAILY 06/21/19 06/21/19 History Allergies Allergy/AdvReac Type Severity Reaction Status Date / Time No Known Allergies Allergy Verified 06/21/19 07:20 Physical Exam Vitals: Vital Signs Temp Pulse Resp BP BP BP Pulse Ox 06/21/19 14:15 91 16 119/59 109/55 96 06/21/19 14:00 88 16 110/55 118/69 97 06/21/19 13:45 90 16 118/65 135/56 97 06/21/19 13:30 81 16 85/41 92/45 97 06/21/19 13:15 88 16 82/50 97 06/21/19 13:09 97.2 F L 78 16 128/80 93 L 06/21/19 06:40 140/68 06/21/19 06:10 97.4 F L 71 20 138/66 93 L Intake and Output 06/20/19 06/21/19 06/21/19 22:59 06:59 14:59 Intake Total 900 2050 Output Total 1705 Balance 900 345 Intake: IV 900 2050 Output: Urine 705 Estimated Blood Loss 1000 Other: Weight 105 kg Physical Exam: Revealed 83-year-old white male complaining of pain/postsurgical pain. In no form of respiratory distress. Head: Atraumatic normocephalic. HEENT:[Neck is supple.] [No neck masses.] [No thyromegaly.] [No JVD.] PERRLA, EOMI, no icterus. Chest: [Right-sided chest tube was noted. About 300 mL of blood noted in the pleural VAC applied.] And there is evidence of significant air leak noted. Diffuse rhonchi noted bilaterally. Cardiac Exam: [Normal S1 and S2, no S3 gallop, no murmur.] Abdomen: [Soft, nontender, no megaly, no rebound, no guarding, normal bowel sounds.] Extremities: [No clubbing, no edema, no cyanosis.] Neurological Exam: Alert oriented 3. [No focal neurologic deficit.] Psychiatric: Normal mood affect and normal mental status examination. Skin: No rashes. Results - Laboratory Findings Abnormal lab findings: Abnormal Labs 06/21/19 06/21/19 06/21/19 06:39 10:59 13:51 POC Glucose (mg/dL) 167 H 260 H 271 H 06/21/19 14:41 POC Glucose (mg/dL) 278 H - Diagnostic Findings Chest x-ray: image reviewed (Chest x-ray postoperatively showed adequate expansion of the right lung, volume loss, right hemidiaphragm elevation.) Assessment and Plan Assessment: Impression: Status post right VATS thoracoscopy, right thoracotomy, right bilobectomy, mediastinal lymph node dissection. Postoperative pain, expected. Postoperative subcu emphysema expected Chronic obstructive pulmonary disease, mild preoperative FEV1 is 82% FEV/FVC is 73%. 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 History of laminectomy and decompression L3/L4 on 04/14/2019. History of mediastinoscopy with lymph node biopsy on 03/22/2019 History of multiple comorbidities including type 2 diabetes, and diabetic neuropathy. benign essential hypertension, coronary artery disease and previous ND, obstructive sleep apnea syndrome, history of GERD. Recommendation: Continue postoperative care, Continue bronchodilators. Continue chest tube to suction Continue incentive spirometry Continue pain control, consider INFORMATION WRITER pump. Resume home meds. Insulin as per protocol, sliding scale, consider insulin infusion if needed. We'll continue to follow. Monitor daily chest x-rays. Early ambulation. We will continue to follow. Time with Patient: Greater than 30
[2019-06-21] MEDS: MORPHINE PCA 50 MG/50 ML BAG IV PRN (15:26)
[2019-06-21 15:27] LABS: Glucose,Whole Blood 262 mg/dL (75-99)
[2019-06-21] MEDS: INSULIN REGULAR 100 UNIT in SODIUM CHLORIDE 0.9% 100 ML IV SCH (15:38)
[2019-06-21 16:19] LABS: Glucose,Whole Blood 241 mg/dL (75-99)
[2019-06-21] MEDS: IPRATROPIUM-ALBUTEROL 3 ML NEB IH SCH ×2 (16:19→21:44)
[2019-06-21] MEDS: HEPARIN SODIUM,PORCINE 5,000 UNIT/ML 1 ML VIAL SQ SCH ×2 (16:27→23:33)
[2019-06-21 16:57] LABS: Glucose,Whole Blood 223 mg/dL (75-99)
[2019-06-21 18:07] LABS: Glucose,Whole Blood 200 mg/dL (75-99)
[2019-06-21 19:05] LABS: Glucose,Whole Blood 169 mg/dL (75-99)
[2019-06-21 19:51] LABS: Glucose,Whole Blood 167 mg/dL (75-99)
--- NOTE | 2019-06-21 20:26 | XR ---
EXAMINATION TYPE: XR chest 1V DATE OF EXAM: 06/21/2019 COMPARISON: Today HISTORY: Postop TECHNIQUE: Single view FINDINGS: There is a chest tube with the tip over the right upper lobe. I see no definite pneumothora x. There is some minimal atelectasis left lung base. There is no heart failure. There is slight eleva carly right diaphragm. IMPRESSION: Mild volume loss on the right side unchanged. Mild subsegmental atelectasis left lung bas e. No heart failure.
[2019-06-21 21:07] LABS: Glucose,Whole Blood 135 mg/dL (75-99)
[2019-06-21] MEDS: TAMSULOSIN 0.4 MG CAP.ER.24H PO SCH (21:14)
[2019-06-21] MEDS: METOPROLOL TARTRATE 25 MG TAB PO SCH (21:14)
[2019-06-21] MEDS: GABAPENTIN 300 MG CAP PO SCH ×2 (21:14→21:15)
[2019-06-21] MEDS: SENNOSIDES-DOCUSATE SODIUM 1 EACH TAB PO SCH (21:14)
[2019-06-21] MEDS: BUDESONIDE 0.5 MG/2 ML NEBU INHALATION SCH (21:44)
[2019-06-21 22:10] LABS: Glucose,Whole Blood 140 mg/dL (75-99)
[2019-06-21 23:07] LABS: Glucose,Whole Blood 146 mg/dL (75-99)
[2019-06-21 23:59] LABS: Glucose,Whole Blood 157 mg/dL (75-99)
[2019-06-22 01:06] LABS: Glucose,Whole Blood 145 mg/dL (75-99)
[2019-06-22] MEDS: SODIUM CHLORIDE 0.9% 1,000 ML IV SCH ×4 (01:08→21:42)
[2019-06-22] MEDS: ACETAMINOPHEN IV (For NPO) 1,000 MG in EMPTY BAG 1 BAG IVPB SCH ×4 (01:51→18:19)
[2019-06-22 02:00] LABS: Glucose,Whole Blood 133 mg/dL (75-99)
[2019-06-22] MEDS ORDERED: SODIUM CHLORIDE 0.9% 500 ML 500 ML IV ONE ×2 (03:17→06:14)
[2019-06-22] MEDS ORDERED: DOPamine DRIP 800 MG in DEXTROSE/WATER 1 250ML.BAG IV SCH (03:30)
[2019-06-22 03:41] LABS: Glucose,Whole Blood 155 mg/dL (75-99)
[2019-06-22 04:02] LABS: Glucose,Whole Blood 153 mg/dL (75-99)
[2019-06-22 04:29] LABS: Anisocytosis Slight; Basophils # (A) 0.2 k/uL (0-0.2); Basophils % (A) 1 %; Eosinophils # (A) 0.1 k/uL (0-0.7); Eosinophils % (A) 1 %; HGB 9.2 gm/dL (13.0-17.5); Hypochromasia Moderate; Lymphocytes % (A) 4 %; MCH 27.2 pg (25.0-35.0); MCHC 31.6 g/dL (31.0-37.0); MCV 86.1 fL (80.0-100.0); Mean Platelet Volume 8.7; Monocytes # (A) 0.9 k/uL (0-1.0); Monocytes % (A) 4 %; Neutrophils # (A) 19.6 k/uL (1.3-7.7); Neutrophils % (A) 89 %; Platelet Count 242 k/uL (150-450); Poikilocytosis Slight; RBC 3.37 m/uL (4.30-5.90); RDW 16.6 % (11.5-15.5); WBC 22.1 k/uL (3.8-10.6)
[2019-06-22 04:39] LABS: Albumin 2.7 g/dL (3.5-5.0); Calcium 7.5 mg/dL (8.4-10.2); Potassium 5.2 mmol/L (3.5-5.1); Total Bilirubin 0.3 mg/dL (0.2-1.3); Total Protein 6.1 g/dL (6.3-8.2)
[2019-06-22 04:57] LABS: ABG Base Excess -5.9 mmol/L; ABG HCO3 21 mmol/L (21-25); ABG Oxygen Saturation 90.5 % (94-97); ABG PCO2 45 mmHg (35-45); ABG PH 7.28 (7.35-7.45); ABG PO2 62 mmHg (83-108); ABG TCO2 22 mmol/L (19-24); Allen Test Performed? Yes
--- NOTE | 2019-06-22 05:07 | XR ---
EXAMINATION TYPE: XR chest 1V DATE OF EXAM: 06/22/2019 COMPARISON: Yesterday HISTORY: Hypoxemia TECHNIQUE: Single view FINDINGS: There is chest tube with the tip at the right lung apex. I see no definite pneumothorax. Th ere is elevated right diaphragm. There is some mild atelectasis left lung base. There is no heart ameena lure. Heart size is normal. IMPRESSION: No change compared to yesterday. Persistent mild infiltrate and atelectasis left lung bas e. Elevated right diaphragm unchanged.
[2019-06-22 05:08] LABS: Glucose,Whole Blood 164 mg/dL (75-99)
[2019-06-22 06:11] LABS: Glucose,Whole Blood 174 mg/dL (75-99)
[2019-06-22] MEDS ORDERED: SODIUM CHLORIDE 0.9% 1,000 ML IV ONE (06:13)
[2019-06-22] MEDS ORDERED: SODIUM BICARB 8.4% 50 ML SYR (1 MEQ/ML) IV STA ×3 (06:38→13:28)
[2019-06-22] MEDS ORDERED: CALCIUM GLUCONATE 1 GM in SODIUM CHLORIDE 0.9% 100 ML IVPB ONE ×2 (07:00→08:00)
[2019-06-22] MEDS: PANTOPRAZOLE 40 MG TABLET PO SCH (07:14)
[2019-06-22 07:18] LABS: Glucose,Whole Blood 163 mg/dL (75-99)
[2019-06-22] MEDS: BUDESONIDE 0.5 MG/2 ML NEBU INHALATION SCH ×2 (08:00→20:12)
[2019-06-22] MEDS: IPRATROPIUM-ALBUTEROL 3 ML NEB IH SCH ×4 (08:00→20:12)
[2019-06-22] MEDS: NOREPINEPHRINE 4 MG in SODIUM CHLORIDE 0.9% 250 ML IV SCH ×3 (08:12→18:58)
--- NOTE | 2019-06-22 08:44 | P.PN ---
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 Previous medical history of Sarona mediastinoscopy wi th lymph node biopsy, COPD with preoperative FEV1 82% of predicted, previous tobacco dependence, obstructive sleep apnea without home CPAP use, as needed home oxygen use, coronary artery disease with myocardial infarction and prior stenting, hypertension, insulin-dependent diabetes, chronic kidney disease, and recent laminectomy with subsequent sepsis. POD #1 right VATS thoracoscopy, right thoracotomy, right bi-lobectomy with mediastinal lymph node dissection (right upper and right middle lobe) Postoperative hypotension, unexpected, possible volume loss The patient is currently laying in bed in the intensive care unit. Does complain about surgical pain, currently on morphine DOG OR ANIMAL SITTER. Right-sided pleural chest tubes present to continuous wall suction with continuous air leak present. Overnight patient did develop hypotension requiring initiation of dopamine, IV fluid boluses, and eventually levo. Remains in sinus tachycardia with heart rate 110-120, blood pressure currently stable on dopamine and levo. Stat echo was ordered to rule out tamponade, no evidence of tamponade present. Objective - Vital Signs Vital signs: Vital Signs Temp 100.3 F H 06/22/19 04:00 Pulse 102 H 06/22/19 08:18 Resp 15 06/22/19 07:00 BP 100/54 06/22/19 07:00 Pulse Ox 99 06/22/19 07:00 Intake & Output 06/21/19 06/22/19 06/22/19 18:59 06:59 18:59 Intake Total 2527.092 6967.889 6294.075 Output Total 2095 953 160 Balance 432.092 353.881 1155.075 Weight 110 kg Intake: IV 0 1683 1203 Calcium Gluconate 1 gm In 100 Sodium Chloride 0.9% 100 ml @ 100 mls/hr IVPB ONCE ONE Rx#:[id number] Pressure bags 33 3 Sodium Chloride 0.9% 1, 1100 100 000 ml @ 100 mls/hr IV . Q10H [facility] Rx#:[id number] Sodium Chloride 0.9% 1, 1000 000 ml @ 999 mls/hr IV . Q1H1M ONE Rx#:[id number] Sodium Chloride 0.9% 500 500 ml 500 ml @ 999 mls/hr IV .Q31M ONE Rx#:[id number] ceFAZolin 2 gm In Sodium 50 Chloride 0.9% 50 ml @ 100 mls/hr IVPB Q8HR [facility] Rx# :[id number] Intake, IV Titration 477.092 129.887 5.075 Amount ACETAMINOPHEN IV (For NPO 100 ) 1,000 mg In Empty Bag 1 bag @ 400 mls/hr IVPB Q6H [facility] Rx#:[id number] Insulin Regular 100 unit 17.092 29.887 5.075 In Sodium Chloride 0.9% 100 ml @ Per Protocol IV .Q0M [facility] Rx#:[id number] Sodium Chloride 0.9% 1, 360 100 000 ml @ 100 mls/hr IV . Q10H [facility] Rx#:[id number] Output: Chest Tube Drainage 290 530 30 Right Lateral Chest 290 530 30 Urine 805 423 130 Estimated Blood Loss 1000 Other: Voiding Method Indwelling Catheter Indwelling Catheter ABP, PAP, CO, CI - Last Documented Arterial Blood Pressure 117/36 - Constitutional General appearance: Present: cooperative, no acute distress, obese - Respiratory Details: Lungs sounds diminished bilaterally with coarse breath sounds heard. Respirations even, slightly labored at times especially after coughing. Currently on 12 L high flow nasal cannula with oxygen saturation 96-97%. Able to achieve 500 mL on his incentive spirometry. Weak cough. Left pleural chest tubes present to continuous wall suction, 400 mL of thin serosanguineous drainage overnight, 750 mL since surgery, continuous air leak present. - Cardiovascular Details: S1, S2 present. Tachycardic but regular rate and rhythm, sinus tach on telemetry. Palpable peripheral pulses bilaterally. No edema present. No calf pain or tenderness noted. SCDs present. - Gastrointestinal Gastrointestinal Comment(s): Abdomen soft, nontender, nondistended. Hypoactive bowel sounds present 4 quadrants. Tolerating sips of water without nausea. - Genitourinary Genitourinary Comment(s): Mckeon present draining clear, yellow urine. Output overnight varied from 15 mL per hour up to 75 mL per hour, mostly in the 30-40 range. - Integumentary Integumentary Comment(s): Skin is warm and dry with evidence of good perfusion. Right lateral chest tube sites covered with clean dry dressing - Neurologic Neurologic: Present: CNII-XII intact - Musculoskeletal Musculoskeletal: Present: strength equal bilaterally - Psychiatric Psychiatric: Present: A&O x's 3, appropriate affect, intact judgment & insight - Allied health notes Allied health notes reviewed: nursing - Labs CBC & Chem 7: 06/22/19 04:20 06/22/19 04:20 Labs: Abnormal Lab Results - Last 24 Hours (Table) 06/21/19 06/21/19 06/21/19 Range/Units 10:59 13:51 14:41 WBC (3.8-10.6) k/uL RBC (4.30-5.90) m/uL Hgb (13.0-17.5) gm/dL Hct (39.0-53.0) % RDW (11.5-15.5) % Neutrophils # (1.3-7.7) k/uL ABG pH (7.35-7.45) ABG pO2 (83-108) mmHg ABG O2 Saturation (94-97) % Potassium (3.5-5.1) mmol/L Chloride (98-107) mmol/L Carbon Dioxide (22-30) mmol/L BUN (9-20) mg/dL Creatinine (0.66-1.25) mg/dL Glucose (74-99) mg/dL POC Glucose (mg/dL) 260 H 271 H 278 H (75-99) mg/dL Calcium (8.4-10.2) mg/dL Total Protein (6.3-8.2) g/dL Albumin (3.5-5.0) g/dL 06/21/19 06/21/19 06/21/19 Range/Units 14:50 14:50 15:25 WBC 20.6 H (3.8-10.6) k/uL RBC 3.69 L (4.30-5.90) m/uL Hgb 9.9 L D (13.0-17.5) gm/dL Hct 31.5 L (39.0-53.0) % RDW 16.1 H (11.5-15.5) % Neutrophils # 18.4 H (1.3-7.7) k/uL ABG pH (7.35-7.45) ABG pO2 (83-108) mmHg ABG O2 Saturation (94-97) % Potassium (3.5-5.1) mmol/L Chloride (98-107) mmol/L Carbon Dioxide 21 L (22-30) mmol/L BUN 27 H (9-20) mg/dL Creatinine 1.60 H (0.66-1.25) mg/dL Glucose 283 H (74-99) mg/dL POC Glucose (mg/dL) 262 H (75-99) mg/dL Calcium (8.4-10.2) mg/dL Total Protein (6.3-8.2) g/dL Albumin (3.5-5.0) g/dL 06/21/19 06/21/19 06/21/19 Range/Units 16:17 16:54 18:06 WBC (3.8-10.6) k/uL RBC (4.30-5.90) m/uL Hgb (13.0-17.5) gm/dL Hct (39.0-53.0) % RDW (11.5-15.5) % Neutrophils # (1.3-7.7) k/uL ABG pH (7.35-7.45) ABG pO2 (83-108) mmHg ABG O2 Saturation (94-97) % Potassium (3.5-5.1) mmol/L Chloride (98-107) mmol/L Carbon Dioxide (22-30) mmol/L BUN (9-20) mg/dL Creatinine (0.66-1.25) mg/dL Glucose (74-99) mg/dL POC Glucose (mg/dL) 241 H 223 H 200 H (75-99) mg/dL Calcium (8.4-10.2) mg/dL Total Protein (6.3-8.2) g/dL Albumin (3.5-5.0) g/dL 06/21/19 06/21/19 06/21/19 Range/Units 19:04 19:50 21:05 WBC (3.8-10.6) k/uL RBC (4.30-5.90) m/uL Hgb (13.0-17.5) gm/dL Hct (39.0-53.0) % RDW (11.5-15.5) % Neutrophils # (1.3-7.7) k/uL ABG pH (7.35-7.45) ABG pO2 (83-108) mmHg ABG O2 Saturation (94-97) % Potassium (3.5-5.1) mmol/L Chloride (98-107) mmol/L Carbon Dioxide (22-30) mmol/L BUN (9-20) mg/dL Creatinine (0.66-1.25) mg/dL Glucose (74-99) mg/dL POC Glucose (mg/dL) 169 H 167 H 135 H (75-99) mg/dL Calcium (8.4-10.2) mg/dL Total Protein (6.3-8.2) g/dL Albumin (3.5-5.0) g/dL 06/21/19 06/21/19 06/21/19 Range/Units 22:08 23:05 23:58 WBC (3.8-10.6) k/uL RBC (4.30-5.90) m/uL Hgb (13.0-17.5) gm/dL Hct (39.0-53.0) % RDW (11.5-15.5) % Neutrophils # (1.3-7.7) k/uL ABG pH (7.35-7.45) ABG pO2 (83-108) mmHg ABG O2 Saturation (94-97) % Potassium (3.5-5.1) mmol/L Chloride (98-107) mmol/L Carbon Dioxide (22-30) mmol/L BUN (9-20) mg/dL Creatinine (0.66-1.25) mg/dL Glucose (74-99) mg/dL POC Glucose (mg/dL) 140 H 146 H 157 H (75-99) mg/dL Calcium (8.4-10.2) mg/dL Total Protein (6.3-8.2) g/dL Albumin (3.5-5.0) g/dL 06/22/19 06/22/19 06/22/19 Range/Units 01:05 01:59 03:40 WBC (3.8-10.6) k/uL RBC (4.30-5.90) m/uL Hgb (13.0-17.5) gm/dL Hct (39.0-53.0) % RDW (11.5-15.5) % Neutrophils # (1.3-7.7) k/uL ABG pH (7.35-7.45) ABG pO2 (83-108) mmHg ABG O2 Saturation (94-97) % Potassium (3.5-5.1) mmol/L Chloride (98-107) mmol/L Carbon Dioxide (22-30) mmol/L BUN (9-20) mg/dL Creatinine (0.66-1.25) mg/dL Glucose (74-99) mg/dL POC Glucose (mg/dL) 145 H 133 H 155 H (75-99) mg/dL Calcium (8.4-10.2) mg/dL Total Protein (6.3-8.2) g/dL Albumin (3.5-5.0) g/dL 06/22/19 06/22/19 06/22/19 Range/Units 04:00 04:20 04:20 WBC 22.1 H (3.8-10.6) k/uL RBC 3.37 L (4.30-5.90) m/uL Hgb 9.2 L (13.0-17.5) gm/dL Hct 29.0 L (39.0-53.0) % RDW 16.6 H (11.5-15.5) % Neutrophils # 19.6 H (1.3-7.7) k/uL ABG pH (7.35-7.45) ABG pO2 (83-108) mmHg ABG O2 Saturation (94-97) % Potassium 5.2 H (3.5-5.1) mmol/L Chloride 110 H (98-107) mmol/L Carbon Dioxide (22-30) mmol/L BUN 28 H (9-20) mg/dL Creatinine 1.81 H (0.66-1.25) mg/dL Glucose 155 H (74-99) mg/dL POC Glucose (mg/dL) 153 H (75-99) mg/dL Calcium 7.5 L (8.4-10.2) mg/dL Total Protein 6.1 L (6.3-8.2) g/dL Albumin 2.7 L (3.5-5.0) g/dL 06/22/19 06/22/19 06/22/19 Range/Units 04:52 05:06 06:10 WBC (3.8-10.6) k/uL RBC (4.30-5.90) m/uL Hgb (13.0-17.5) gm/dL Hct (39.0-53.0) % RDW (11.5-15.5) % Neutrophils # (1.3-7.7) k/uL ABG pH 7.28 L (7.35-7.45) ABG pO2 62 L (83-108) mmHg ABG O2 Saturation 90.5 L (94-97) % Potassium (3.5-5.1) mmol/L Chloride (98-107) mmol/L Carbon Dioxide (22-30) mmol/L BUN (9-20) mg/dL Creatinine (0.66-1.25) mg/dL Glucose (74-99) mg/dL POC Glucose (mg/dL) 164 H 174 H (75-99) mg/dL Calcium (8.4-10.2) mg/dL Total Protein (6.3-8.2) g/dL Albumin (3.5-5.0) g/dL 06/22/19 Range/Units 07:17 WBC (3.8-10.6) k/uL RBC (4.30-5.90) m/uL Hgb (13.0-17.5) gm/dL Hct (39.0-53.0) % RDW (11.5-15.5) % Neutrophils # (1.3-7.7) k/uL ABG pH (7.35-7.45) ABG pO2 (83-108) mmHg ABG O2 Saturation (94-97) % Potassium (3.5-5.1) mmol/L Chloride (98-107) mmol/L Carbon Dioxide (22-30) mmol/L BUN (9-20) mg/dL Creatinine (0.66-1.25) mg/dL Glucose (74-99) mg/dL POC Glucose (mg/dL) 163 H (75-99) mg/dL Calcium (8.4-10.2) mg/dL Total Protein (6.3-8.2) g/dL Albumin (3.5-5.0) g/dL - Imaging and Cardiology Chest x-ray: report reviewed, image reviewed Assessment and Plan Assessment: 1. 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 History of Sarona mediastinoscopy with lymph node biopsy 3. COPD with preoperative FEV1 82% of predicted 4. Previous tobacco dependence 5. Obstructive sleep apnea without home CPAP use 6. Home oxygen use as needed 7. Coronary artery disease with previous myocardial infarction and prior stenting 8. Hypertension, currently hypotensive on IV pressors 9. Insulin dependent diabetes 10. Chronic kidney disease 11. Recent laminectomy with subsequent sepsis Plan: 1. Continue right pleural chest tubes to continuous wall suction. Monitor for resolution of air leak. Surgical pathology pending. 2. Continue bronchodilators, inhaled steroids per pulmonology 3. Wean O2 as tolerated. Encourage incentive spirometry 10 times every hour while awake 4. Continue dopamine, levo for now. Will wean levo as tolerated 5. Will monitor daily labs and x-rays. Lactic acid 1.3. Electrolyte replacement as necessary, calcium replaced this morning 6. GI/DVT prophylaxis 7. Stat echo completed, no evidence of table 8. Continue Lopressor for tachycardia 9. Pain control with current medication regimen. Avoid Toradol secondary to kidney function. May add in IV fentanyl for breakthrough pain 10. Continue Mckeon for another 24 hours for strict accurate intake and output. 11. Increase activity when able, out of bed to chair. 12. More recommendations to follow. Time with Patient: Greater than 30
[2019-06-22 09:00] LABS: Glucose,Whole Blood 151 mg/dL (75-99)
[2019-06-22] MEDS ORDERED: METOPROLOL TARTRATE 50 MG TAB PO SCH (09:00)
[2019-06-22] MEDS: ONDANSETRON 4 MG/2 ML VIAL IVP PRN ×2 (09:25→17:25)
[2019-06-22] MEDS: ATORVASTATIN 40 MG TAB PO SCH (09:37)
[2019-06-22] MEDS: METOPROLOL TARTRATE 25 MG TAB PO SCH ×2 (09:37→21:42)
[2019-06-22] MEDS: ASPIRIN 81 MG PO SCH (09:37)
[2019-06-22] MEDS: GABAPENTIN 300 MG CAP PO SCH ×4 (09:37→21:42)
[2019-06-22] MEDS: HEPARIN SODIUM,PORCINE 5,000 UNIT/ML 1 ML VIAL SQ SCH ×2 (09:38→16:30)
[2019-06-22 09:45] LABS: Glucose,Whole Blood 170 mg/dL (75-99)
[2019-06-22] MEDS ORDERED: fentaNYL (PF) 50 MCG/ML 2 ML AMP IVP ONE (09:54)
[2019-06-22] MEDS: HYDROcodone/APAP 5-325MG 1 EACH TAB PO PRN ×2 (10:11→14:53)
[2019-06-22 10:15] LABS: ABG Base Excess -7.9 mmol/L; ABG HCO3 19 mmol/L (21-25); ABG Oxygen Saturation 96.6 % (94-97); ABG PCO2 40 mmHg (35-45); ABG PH 7.29 (7.35-7.45); ABG PO2 85 mmHg (83-108); ABG TCO2 20 mmol/L (19-24)
--- NOTE | 2019-06-22 11:10 | P.PN ---
Subjective Progress Note Date: 06/22/19 Principal diagnosis: Bronchogenic carcinoma, status post bilobectomy This is an 83-year-old white male with history of COPD, right lung cancer, stage IIB. This was diagnosed via flexible bronchoscopy and endobronchial biopsies and lavage of the right middle lobe back on 02/07/2019. His PET scan was suspicious for mediastinal involvement, however the patient underwent bronchos copy, mediastinoscopy with lymph node biopsy by Dr. Finley on 03/22/2019. His previous PET scan showed uptake in for R and 5 all lymph nodes hence lymph node staging of the 5R and 5 all was done for confirmation of metastatic disease. Pathology was negative on these notes. Hence the patient was referred back to see Dr. Finley, and he underwent right VATS thoracoscopy, right thoracotomy, right bilobectomy , mediastinal lymph node dissection, and postoperatively the patient was extubated, transferred to the intensive care unit, and I was asked to see him on consultation. Patient had about a liter of estimated blood loss during the surgery, his blood pressure is marginal in the ICU, it is 100/50, his heart rate is 80, patient is complaining of postsurgical pain. Mostly on the right side of the chest. . Patient is Patient was reevaluated today, his postoperative day #1,right VATS thoracoscopy, right thoracotomy, right bi-lobectomy with mediastinal lymph node dissection (right upper and right middle lobe) the main concern today seems to be related to severe postsurgical pain, requiring narcotics and he has a MANAGER QUANTITATIVE pump, patient is tachycardic, and he has hypotension did not respond to 2 L of fluid boluses, and now he is on norepinephrine at 0.11 mcg/kg/m. I discontinued his dopamine mostly because of tachycardia noted. Echocardiogram showed no evidence of pericardial tamponade. Chest x-ray showed expansion of the right lung, he continues to have some continuous air leak, but no evidence of pneumothorax. ABG earlier today showed a pO2 of 85 pCO2 of 40 pH of 7.29. Patient is on high flow nasal cannula at 12 L/m. Objective - Vital Signs Vital signs: Vital Signs Temp 100.3 F H 06/22/19 04:00 Pulse 102 H 06/22/19 08:18 Resp 15 06/22/19 07:00 BP 100/54 06/22/19 07:00 Pulse Ox 99 06/22/19 07:00 Intake & Output 06/21/19 06/22/19 06/22/19 18:59 06:59 18:59 Intake Total 2527.092 7910.383 7492.222 Output Total 2095 953 160 Balance 432.092 959.375 7656.222 Weight 110 kg Intake: IV 0 1683 1203 Calcium Gluconate 1 gm In 100 Sodium Chloride 0.9% 100 ml @ 100 mls/hr IVPB ONCE ONE Rx#:[id number] Pressure bags 33 3 Sodium Chloride 0.9% 1, 1100 100 000 ml @ 100 mls/hr IV . Q10H [facility] Rx#:[id number] Sodium Chloride 0.9% 1, 1000 000 ml @ 999 mls/hr IV . Q1H1M ONE Rx#:[id number] Sodium Chloride 0.9% 500 500 ml 500 ml @ 999 mls/hr IV .Q31M [facility] Rx#:[id number] ceFAZolin 2 gm In Sodium 50 Chloride 0.9% 50 ml @ 100 mls/hr IVPB Q8HR [facility] Rx# :[id number] Intake, IV Titration 477.092 129.887 11.222 Amount ACETAMINOPHEN IV (For NPO 100 ) 1,000 mg In Empty Bag 1 bag @ 400 mls/hr IVPB Q6H [facility] Rx#:[id number] Insulin Regular 100 unit 17.092 29.887 5.075 In Sodium Chloride 0.9% 100 ml @ Per Protocol IV .Q0M [facility] Rx#:[id number] Norepinephrine 4 mg In 6.147 Sodium Chloride 0.9% 250 ml @ 0.05 MCG/KG/MIN 20. 955 mls/hr IV .Q12H8M [facility] Rx#:[id number] Sodium Chloride 0.9% 1, 360 100 000 ml @ 100 mls/hr IV . Q10H [facility] Rx#:[id number] Output: Chest Tube Drainage 290 530 30 Right Lateral Chest 290 530 30 Urine 805 423 130 Estimated Blood Loss 1000 Other: Voiding Method Indwelling Catheter Indwelling Catheter ABP, PAP, CO, CI - Last Documented Arterial Blood Pressure 117/36 - Exam Physical Exam: Revealed 83-year-old white male complaining of pain/postsurgical pain. On high flow nasal cannula. At 12 L/m Head: Atraumatic normocephalic. HEENT:[Neck is supple.] [No neck masses.] [No thyromegaly.] [No JVD.] PERRLA, EOMI, no icterus. Chest: [Right-sided chest tube was noted. Continuous air leak was noted. Cardiac Exam: [Normal S1 and S2, no S3 gallop, no murmur.] Abdomen: [Soft, nontender, no megaly, no rebound, no guarding, normal bowel ellie nds.] Extremities: [No clubbing, no edema, no cyanosis.] Neurological Exam: Alert oriented 3. [No focal neurologic deficit.] Psychiatric: Normal mood affect and normal mental status examination. Skin: No rashes. - Labs CBC & Chem 7: 06/22/19 04:20 06/22/19 04:20 Labs: Abnormal Lab Results - Last 24 Hours (Table) 06/21/19 06/21/19 06/21/19 Range/Units 13:51 14:41 14:50 WBC 20.6 H (3.8-10.6) k/uL RBC 3.69 L (4.30-5.90) m/uL Hgb 9.9 L D (13.0-17.5) gm/dL Hct 31.5 L (39.0-53.0) % RDW 16.1 H (11.5-15.5) % Neutrophils # 18.4 H (1.3-7.7) k/uL ABG pH (7.35-7.45) ABG pO2 (83-108) mmHg ABG HCO3 (21-25) mmol/L ABG O2 Saturation (94-97) % Potassium (3.5-5.1) mmol/L Chloride (98-107) mmol/L Carbon Dioxide (22-30) mmol/L BUN (9-20) mg/dL Creatinine (0.66-1.25) mg/dL Glucose (74-99) mg/dL POC Glucose (mg/dL) 271 H 278 H (75-99) mg/dL Calcium (8.4-10.2) mg/dL Total Protein (6.3-8.2) g/dL Albumin (3.5-5.0) g/dL 06/21/19 06/21/19 06/21/19 Range/Units 14:50 15:25 16:17 WBC (3.8-10.6) k/uL RBC (4.30-5.90) m/uL Hgb (13.0-17.5) gm/dL Hct (39.0-53.0) % RDW (11.5-15.5) % Neutrophils # (1.3-7.7) k/uL ABG pH (7.35-7.45) ABG pO2 (83-108) mmHg ABG HCO3 (21-25) mmol/L ABG O2 Saturation (94-97) % Potassium (3.5-5.1) mmol/L Chloride (98-107) mmol/L Carbon Dioxide 21 L (22-30) mmol/L BUN 27 H (9-20) mg/dL Creatinine 1.60 H (0.66-1.25) mg/dL Glucose 283 H (74-99) mg/dL POC Glucose (mg/dL) 262 H 241 H (75-99) mg/dL Calcium (8.4-10.2) mg/dL Total Protein (6.3-8.2) g/dL Albumin (3.5-5.0) g/dL 06/21/19 06/21/19 06/21/19 Range/Units 16:54 18:06 19:04 WBC (3.8-10.6) k/uL RBC (4.30-5.90) m/uL Hgb (13.0-17.5) gm/dL Hct (39.0-53.0) % RDW (11.5-15.5) % Neutrophils # (1.3-7.7) k/uL ABG pH (7.35-7.45) ABG pO2 (83-108) mmHg ABG HCO3 (21-25) mmol/L ABG O2 Saturation (94-97) % Potassium (3.5-5.1) mmol/L Chloride (98-107) mmol/L Carbon Dioxide (22-30) mmol/L BUN (9-20) mg/dL Creatinine (0.66-1.25) mg/dL Glucose (74-99) mg/dL POC Glucose (mg/dL) 223 H 200 H 169 H (75-99) mg/dL Calcium (8.4-10.2) mg/dL Total Protein (6.3-8.2) g/dL Albumin (3.5-5.0) g/dL 06/21/19 06/21/19 06/21/19 Range/Units 19:50 21:05 22:08 WBC (3.8-10.6) k/uL RBC (4.30-5.90) m/uL Hgb (13.0-17.5) gm/dL Hct (39.0-53.0) % RDW (11.5-15.5) % Neutrophils # (1.3-7.7) k/uL ABG pH (7.35-7.45) ABG pO2 (83-108) mmHg ABG HCO3 (21-25) mmol/L ABG O2 Saturation (94-97) % Potassium (3.5-5.1) mmol/L Chloride (98-107) mmol/L Carbon Dioxide (22-30) mmol/L BUN (9-20) mg/dL Creatinine (0.66-1.25) mg/dL Glucose (74-99) mg/dL POC Glucose (mg/dL) 167 H 135 H 140 H (75-99) mg/dL Calcium (8.4-10.2) mg/dL Total Protein (6.3-8.2) g/dL Albumin (3.5-5.0) g/dL 06/21/19 06/21/19 06/22/19 Range/Units 23:05 23:58 01:05 WBC (3.8-10.6) k/uL RBC (4.30-5.90) m/uL Hgb (13.0-17.5) gm/dL Hct (39.0-53.0) % RDW (11.5-15.5) % Neutrophils # (1.3-7.7) k/uL ABG pH (7.35-7.45) ABG pO2 (83-108) mmHg ABG HCO3 (21-25) mmol/L ABG O2 Saturation (94-97) % Potassium (3.5-5.1) mmol/L Chloride (98-107) mmol/L Carbon Dioxide (22-30) mmol/L BUN (9-20) mg/dL Creatinine (0.66-1.25) mg/dL Glucose (74-99) mg/dL POC Glucose (mg/dL) 146 H 157 H 145 H (75-99) mg/dL Calcium (8.4-10.2) mg/dL Total Protein (6.3-8.2) g/dL Albumin (3.5-5.0) g/dL 06/22/19 06/22/19 06/22/19 Range/Units 01:59 03:40 04:00 WBC (3.8-10.6) k/uL RBC (4.30-5.90) m/uL Hgb (13.0-17.5) gm/dL Hct (39.0-53.0) % RDW (11.5-15.5) % Neutrophils # (1.3-7.7) k/uL ABG pH (7.35-7.45) ABG pO2 (83-108) mmHg ABG HCO3 (21-25) mmol/L ABG O2 Saturation (94-97) % Potassium (3.5-5.1) mmol/L Chloride (98-107) mmol/L Carbon Dioxide (22-30) mmol/L BUN (9-20) mg/dL Creatinine (0.66-1.25) mg/dL Glucose (74-99) mg/dL POC Glucose (mg/dL) 133 H 155 H 153 H (75-99) mg/dL Calcium (8.4-10.2) mg/dL Total Protein (6.3-8.2) g/dL Albumin (3.5-5.0) g/dL 06/22/19 06/22/19 06/22/19 Range/Units 04:20 04:20 04:52 WBC 22.1 H (3.8-10.6) k/uL RBC 3.37 L (4.30-5.90) m/uL Hgb 9.2 L (13.0-17.5) gm/dL Hct 29.0 L (39.0-53.0) % RDW 16.6 H (11.5-15.5) % Neutrophils # 19.6 H (1.3-7.7) k/uL ABG pH 7.28 L (7.35-7.45) ABG pO2 62 L (83-108) mmHg ABG HCO3 (21-25) mmol/L ABG O2 Saturation 90.5 L (94-97) % Potassium 5.2 H (3.5-5.1) mmol/L Chloride 110 H (98-107) mmol/L Carbon Dioxide (22-30) mmol/L BUN 28 H (9-20) mg/dL Creatinine 1.81 H (0.66-1.25) mg/dL Glucose 155 H (74-99) mg/dL POC Glucose (mg/dL) (75-99) mg/dL Calcium 7.5 L (8.4-10.2) mg/dL Total Protein 6.1 L (6.3-8.2) g/dL Albumin 2.7 L (3.5-5.0) g/dL 06/22/19 06/22/19 06/22/19 Range/Units 05:06 06:10 07:17 WBC (3.8-10.6) k/uL RBC (4.30-5.90) m/uL Hgb (13.0-17.5) gm/dL Hct (39.0-53.0) % RDW (11.5-15.5) % Neutrophils # (1.3-7.7) k/uL ABG pH (7.35-7.45) ABG pO2 (83-108) mmHg ABG HCO3 (21-25) mmol/L ABG O2 Saturation (94-97) % Potassium (3.5-5.1) mmol/L Chloride (98-107) mmol/L Carbon Dioxide (22-30) mmol/L BUN (9-20) mg/dL Creatinine (0.66-1.25) mg/dL Glucose (74-99) mg/dL POC Glucose (mg/dL) 164 H 174 H 163 H (75-99) mg/dL Calcium (8.4-10.2) mg/dL Total Protein (6.3-8.2) g/dL Albumin (3.5-5.0) g/dL 06/22/19 06/22/19 06/22/19 Range/Units 08:59 09:43 10:10 WBC (3.8-10.6) k/uL RBC (4.30-5.90) m/uL Hgb (13.0-17.5) gm/dL Hct (39.0-53.0) % RDW (11.5-15.5) % Neutrophils # (1.3-7.7) k/uL ABG pH 7.29 L (7.35-7.45) ABG pO2 (83-108) mmHg ABG HCO3 19 L (21-25) mmol/L ABG O2 Saturation (94-97) % Potassium (3.5-5.1) mmol/L Chloride (98-107) mmol/L Carbon Dioxide (22-30) mmol/L BUN (9-20) mg/dL Creatinine (0.66-1.25) mg/dL Glucose (74-99) mg/dL POC Glucose (mg/dL) 151 H 170 H (75-99) mg/dL Calcium (8.4-10.2) mg/dL Total Protein (6.3-8.2) g/dL Albumin (3.5-5.0) g/dL Assessment and Plan Assessment: Impression: Status post right VATS thoracoscopy, right thoracotomy, right bilobectomy, mediastinal lymph node dissection. Postoperative day #1. Postoperative pain, expected. Postoperative subcu emphysema expected Postoperative hypotension, unexpected, however it is mostly related to pain medications, hypovolemia, strongly doubt sepsis Chronic obstructive pulmonary disease, mild preoperative FEV1 is 82% FEV/FVC is 73%. 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 History of laminectomy and decompression L3/L4 on 04/14/2019. History of mediastinoscopy with lymph node biopsy on 03/22/2019 History of multiple comorbidities including type 2 diabetes, and diabetic neuropathy. benign essential hypertension, coronary artery disease and previous MO, obstructive sleep apnea syndrome, history of GERD. Recommendation: Discontinue dopamine, mostly because of tachycardia. Continue norepinephrine and titrate accordingly. IV fluids boluses, and pressors titrate to a blood pressure with a mean of above 60. Continue postoperative care, Continue bronchodilators. Continue chest tube to suction Continue incentive spirometry Continue pain control, presently on MANAGER QUANTITATIVE pump. Resume home meds. Insulin drip as per protocol. We'll continue to follow. Monitor daily chest x-rays. Early ambulation. GI and DVT prophylaxis. We will continue to follow. Time with Patient: Less than 30
[2019-06-22 11:13] LABS: Glucose,Whole Blood 168 mg/dL (75-99)
[2019-06-22 12:03] LABS: Glucose,Whole Blood 166 mg/dL (75-99)
[2019-06-22 13:05] LABS: Glucose,Whole Blood 161 mg/dL (75-99)
[2019-06-22 13:15] LABS: ABG Base Excess -6.1 mmol/L; ABG HCO3 21 mmol/L (21-25); ABG PCO2 49 mmHg (35-45); ABG PH 7.25 (7.35-7.45); ABG PO2 108 mmHg (83-108); ABG TCO2 23 mmol/L (19-24)
[2019-06-22] MEDS ORDERED: FUROSEMIDE 10 MG/ML 2 ML VIAL IV STA (13:28)
[2019-06-22] MEDS: INSULIN REGULAR 100 UNIT in SODIUM CHLORIDE 0.9% 100 ML IV SCH (14:00)
[2019-06-22 15:02] LABS: Glucose,Whole Blood 153 mg/dL (75-99)
[2019-06-22 16:33] LABS: Glucose,Whole Blood 147 mg/dL (75-99)
[2019-06-22 17:01] LABS: Glucose,Whole Blood 144 mg/dL (75-99)
[2019-06-22 17:03] LABS: ABG Base Excess -2.7 mmol/L; ABG HCO3 24 mmol/L (21-25); ABG Oxygen Saturation 98.3 % (94-97); ABG PCO2 47 mmHg (35-45); ABG PH 7.31 (7.35-7.45); ABG PO2 103 mmHg (83-108); ABG TCO2 25 mmol/L (19-24); Allen Test Performed? Yes
--- NOTE | 2019-06-22 17:20 | P.CONS ---
History of Present Illness - Reason for Consult Management of diabetes mellitus and insulin recommendations - History of Present Illness Patient is a pleasant 83-year-old male admitted for lung cancer squamous cell carcinoma had right upper lobe of the lung resected. Patient presently has a right-sided chest tube has some pain in there patient has right thoracotomy right bilobectomy with mediastinal lymph node dissection. Patient had some fever which as per the cardiac thoracic surgery is reactive from surgery. Patient does have sinus tachycardia. Patient is hypotensive which was believed secondary to morphine and patient is presently on dopamine and Levothroid. There is no clinical evidence of tamponade echo did not show any evidence of pericardial effusion. Patient uses 30 minute units of short-acting insulin 3 times a day. Patient is presently on IV insulin drip. Patient will be started on alvarado of long-acting insulin. Once we're able to taper the insulin and once patient starts eating patient was started on 10 units with each meal along with sliding scale. Review of Systems REVIEW OF SYSTEMS: CONSTITUTIONAL: No fever, no malaise, no fatigue. HEENT: No recent visual problems or hearing problems. Denied any sore throat. CARDIOVASCULAR: No, orthopnea, PND, no palpitations, no syncope. PULMONARY: No shortness of breath, no cough, no hemoptysis. GASTROINTESTINAL: No diarrhea, no nausea, no vomiting, no abdominal pain. NEUROLOGICAL: No headaches, no weakness, no numbness. HEMATOLOGICAL: Denies any bleeding or petechiae. GENITOURINARY: Denies any burning micturition, frequency, or urgency. MUSCULOSKELETAL/RHEUMATOLOGICAL: Denies any joint pain, swelling, or any muscle pain. ENDOCRINE: Denies any polyuria or polydipsia. The rest of the 14-point review of systems is negative. Past Medical History Past Medical History: COPD, Diabetes Mellitus, GERD/Reflux, Hypertension, Myocardial Infarction (PR), Renal Disease, Sleep Apnea/CPAP/BIPAP, Vascular Disorder Additional Past Medical History / Comment(s): NEUROPATHY FEET, decreased kidney function, uses CPAP Last Myocardial Infarction Date:: 2015 History of Any Multi-Drug Resistant Organisms: MRSA Year Discovered:: 02/07/19 MDRO Source:: MRSA BRONCH Past Surgical History: Heart Catheterization, Heart Catheterization With Stent, Tonsillectomy Additional Past Surgical History / Comment(s): EGD, COLONOSCOPY, sinus surg. x3, chest/lung biopsy, LAMINECTOMY Past Anesthesia/Blood Transfusion Reactions: No Reported Reaction Date of Last Stent Placement:: 2015 Smoking Status: Former smoker - Past Family History Father Family Medical History: Cancer, Myocardial Infarction (PR) Additional Family Medical History / Comment(s): Father had bone cancer. He at the age of 80yrs. Mother Family Medical History: AFIB, Myocardial Infarction (PR) Additional Family Medical History / Comment(s): Mother when she 82 years old and of a heart attack Medications and Allergies Home Medications Medication Instructions Recorded Confirmed Type Omeprazole [PriLOSEC] 20 mg PO DAILY@0600 06/11/14 06/21/19 History Simvastatin [Zocor] 40 mg PO HS 06/11/14 06/21/19 History Gabapentin [Neurontin] 300 mg PO QID 10/16/17 06/21/19 History Metoprolol Tartrate [Lopressor] 50 mg PO DAILY 10/16/17 06/21/19 History Albuterol Nebulized [Ventolin 2.5 mg INHALATION RT-QID PRN 11/02/18 06/21/19 History Nebulized] Cholecalciferol [Vitamin D3 (25 1,000 unit PO DAILY@1700 11/02/18 06/21/19 History Mcg = 1000 Iu)] INSULIN LISPRO (HumaLOG) [humaLOG] 30 units SQ TID-W/MEALS 11/03/18 06/21/19 His tory Acetaminophen Tab [Tylenol] 650 mg PO Q6HR PRN tab 04/06/19 06/21/19 Rx Bisacodyl [Dulcolax] 10 mg RECTAL DAILY PRN 04/19/19 06/21/19 History HYDROcodone/APAP 5-325MG [[place] 1 tab PO Q8HR PRN 04/19/19 06/21/19 History 5-325] Magnesium Hydroxide [Milk of 2,400 mg PO DAILY PRN 04/19/19 06/21/19 History Magnesia] Oxymetazoline 0.05% Nasl [place] 2 spray NASAL BID@0800,1700 04/19/19 06/21/19 History [Afrin 0.05% Nasal [place]] Tamsulosin HCl [Flomax] 0.4 mg PO HS 04/19/19 06/21/19 History Furosemide [Lasix] 20 mg PO DAILY 06/15/19 06/21/19 History Aspirin [Adult Low Dose Aspirin EC] 81 mg PO DAILY 06/21/19 06/21/19 History Allergies Allergy/AdvReac Type Severity Reaction Status Date / Time No Known Allergies Allergy Verified 06/21/19 07:20 Physical Exam Vitals: Vital Signs Temp Pulse Resp BP Pulse Ox 06/22/19 16:55 103 H 06/22/19 16:45 99 06/22/19 12:56 108 H 06/22/19 12:40 94 06/22/19 08:18 102 H 06/22/19 08:00 100 06/22/19 07:00 116 H 15 100/54 99 06/22/19 06:30 115 H 17 99/53 99 06/22/19 06:00 112 H 17 93/51 98 06/22/19 05:30 112 H 18 100/54 99 06/22/19 05:17 100 06/22/19 05:00 120 H 21 86/53 92 L 06/22/19 04:30 126 H 11 L 67/45 91 L 06/22/19 04:00 100.3 F H 98 19 87/46 96 06/22/19 03:30 101 H 22 78/46 96 06/22/19 03:00 102 H 31 H 98/52 96 06/22/19 02:30 106 H 30 H 101/52 93 L 06/22/19 02:00 102 H 25 H 92 L 06/22/19 01:30 105 H 26 H 111/63 92 L 06/22/19 01:00 98 21 121/60 96 06/22/19 00:30 96 20 119/60 97 06/22/19 00:00 98.5 F 101 H 28 H 123/59 95 06/21/19 23:30 97 20 117/63 97 06/21/19 23:00 100 19 134/65 96 06/21/19 22:30 108 H 20 140/69 97 06/21/19 22:02 97 06/21/19 22:01 114 H 06/21/19 22:00 111 H 17 133/72 97 06/21/19 21:46 115 H 97 06/21/19 21:30 112 H 23 120/61 98 06/21/19 21:00 115 H 23 118/80 99 06/21/19 20:30 114 H 24 125/65 97 06/21/19 20:00 98.4 F 117 H 23 109/72 96 06/21/19 19:30 114 H 23 111/62 90 L 06/21/19 19:00 104 H 14 111/62 96 06/21/19 18:30 106 H 23 93 L 06/21/19 18:00 101 H 15 87/57 95 06/21/19 17:30 101 H 14 96 Intake and Output 06/22/19 06/22/19 06/22/19 06:59 14:59 22:59 Intake Total 5781.022 5678.149 7.575 Output Total 704 690 Balance 589.772 6607.149 7.575 Intake: IV 1374 1715 Calcium Gluconate 1 gm In 200 Sodium Chloride 0.9% 100 ml @ 100 mls/hr IVPB ONCE ONE Rx#:[id number] Pressure bags 24 15 Sodium Chloride 0.9% 1, 800 500 000 ml @ 100 mls/hr IV . Q10H [facility] Rx#:[id number] Sodium Chloride 0.9% 1, 1000 000 ml @ 999 mls/hr IV . Q1H1M ONE Rx#:[id number] Sodium Chloride 0.9% 500 500 ml 500 ml @ 999 mls/hr IV .Q31M [facility] Rx#:[id number] ceFAZolin 2 gm In Sodium 50 Chloride 0.9% 50 ml @ 100 mls/hr IVPB Q8HR [facility] Rx# :[id number] Intake, IV Titration 19.871 395.149 7.575 Amount ACETAMINOPHEN IV (For NPO 100 ) 1,000 mg In Empty Bag 1 bag @ 400 mls/hr IVPB Q6H [facility] Rx#:[id number] Insulin Regular 100 unit 19.871 41.149 7.575 In Sodium Chloride 0.9% 100 ml @ Per Protocol IV .Q0M [facility] Rx#:[id number] Norepinephrine 4 mg In 254.000 Sodium Chloride 0.9% 250 ml @ 0.05 MCG/KG/MIN 20. 955 mls/hr IV .Q12H8M [facility] Rx#:[id number] Output: Chest Tube Drainage 400 180 Right Lateral Chest 400 180 Urine 304 510 Other: Voiding Method Indwelling Catheter Weight 110 kg PHYSICAL EXAMINATION: GENERAL: The patient is alert and oriented x3, not in any acute distress. HEENT had a right-sided chest tube which is draining recent 4 L of nasal cannula oxygen HEENT: Pupils are round and equally reacting to light. EOMI. No scleral icterus. No conjunctival pallor. Normocephalic, atraumatic. No pharyngeal erythema. No thyromegaly. CARDIOVASCULAR: S1 and S2 present. No murmurs, rubs, or gallops. PULMONARY: Chest is clear to auscultation, no wheezing or crackles. ABDOMEN: Soft, nontender, nondistended, normoactive bowel sounds. No palpable organomegaly. MUSCULOSKELETAL: No joint swelling or deformity. EXTREMITIES: No cyanosis, clubbing, or pedal edema. NEUROLOGICAL: Gross neurological examination did not reveal any focal deficits. SKIN: No rashes. Results CBC & Chem 7: 06/22/19 04:20 06/22/19 04:20 Labs: Abnormal Lab Results - Last 24 Hours (Table) 06/21/19 06/21/19 06/21/19 Range/Units 18:06 19:04 19:50 WBC (3.8-10.6) k/uL RBC (4.30-5.90) m/uL Hgb (13.0-17.5) gm/dL Hct (39.0-53.0) % RDW (11.5-15.5) % Neutrophils # (1.3-7.7) k/uL ABG pH (7.35-7.45) ABG pCO2 (35-45) mmHg ABG pO2 (83-108) mmHg ABG HCO3 (21-25) mmol/L ABG Total CO2 (19-24) mmol/L ABG O2 Saturation (94-97) % Potassium (3.5-5.1) mmol/L Chloride (98-107) mmol/L BUN (9-20) mg/dL Creatinine (0.66-1.25) mg/dL Glucose (74-99) mg/dL POC Glucose (mg/dL) 200 H 169 H 167 H (75-99) mg/dL Calcium (8.4-10.2) mg/dL Total Protein (6.3-8.2) g/dL Albumin (3.5-5.0) g/dL 06/21/19 06/21/19 06/21/19 Range/Units 21:05 22:08 23:05 WBC (3.8-10.6) k/uL RBC (4.30-5.90) m/uL Hgb (13.0-17.5) gm/dL Hct (39.0-53.0) % RDW (11.5-15.5) % Neutrophils # (1.3-7.7) k/uL ABG pH (7.35-7.45) ABG pCO2 (35-45) mmHg ABG pO2 (83-108) mmHg ABG HCO3 (21-25) mmol/L ABG Total CO2 (19-24) mmol/L ABG O2 Saturation (94-97) % Potassium (3.5-5.1) mmol/L Chloride (98-107) mmol/L BUN (9-20) mg/dL Creatinine (0.66-1.25) mg/dL Glucose (74-99) mg/dL POC Glucose (mg/dL) 135 H 140 H 146 H (75-99) mg/dL Calcium (8.4-10.2) mg/dL Total Protein (6.3-8.2) g/dL Albumin (3.5-5.0) g/dL 06/21/19 06/22/19 06/22/19 Range/Units 23:58 01:05 01:59 WBC (3.8-10.6) k/uL RBC (4.30-5.90) m/uL Hgb (13.0-17.5) gm/dL Hct (39.0-53.0) % RDW (11.5-15.5) % Neutrophils # (1.3-7.7) k/uL ABG pH (7.35-7.45) ABG pCO2 (35-45) mmHg ABG pO2 (83-108) mmHg ABG HCO3 (21-25) mmol/L ABG Total CO2 (19-24) mmol/L ABG O2 Saturation (94-97) % Potassium (3.5-5.1) mmol/L Chloride (98-107) mmol/L BUN (9-20) mg/dL Creatinine (0.66-1.25) mg/dL Glucose (74-99) mg/dL POC Glucose (mg/dL) 157 H 145 H 133 H (75-99) mg/dL Calcium (8.4-10.2) mg/dL Total Protein (6.3-8.2) g/dL Albumin (3.5-5.0) g/dL 06/22/19 06/22/19 06/22/19 Range/Units 03:40 04:00 04:20 WBC 22.1 H (3.8-10.6) k/uL RBC 3.37 L (4.30-5.90) m/uL Hgb 9.2 L (13.0-17.5) gm/dL Hct 29.0 L (39.0-53.0) % RDW 16.6 H (11.5-15.5) % Neutrophils # 19.6 H (1.3-7.7) k/uL ABG pH (7.35-7.45) ABG pCO2 (35-45) mmHg ABG pO2 (83-108) mmHg ABG HCO3 (21-25) mmol/L ABG Total CO2 (19-24) mmol/L ABG O2 Saturation (94-97) % Potassium (3.5-5.1) mmol/L Chloride (98-107) mmol/L BUN (9-20) mg/dL Creatinine (0.66-1.25) mg/dL Glucose (74-99) mg/dL POC Glucose (mg/dL) 155 H 153 H (75-99) mg/dL Calcium (8.4-10.2) mg/dL Total Protein (6.3-8.2) g/dL Albumin (3.5-5.0) g/dL 06/22/19 06/22/19 06/22/19 Range/Units 04:20 04:52 05:06 WBC (3.8-10.6) k/uL RBC (4.30-5.90) m/uL Hgb (13.0-17.5) gm/dL Hct (39.0-53.0) % RDW (11.5-15.5) % Neutrophils # (1.3-7.7) k/uL ABG pH 7.28 L (7.35-7.45) ABG pCO2 (35-45) mmHg ABG pO2 62 L (83-108) mmHg ABG HCO3 (21-25) mmol/L ABG Total CO2 (19-24) mmol/L ABG O2 Saturation 90.5 L (94-97) % Potassium 5.2 H (3.5-5.1) mmol/L Chloride 110 H (98-107) mmol/L BUN 28 H (9-20) mg/dL Creatinine 1.81 H (0.66-1.25) mg/dL Glucose 155 H (74-99) mg/dL POC Glucose (mg/dL) 164 H (75-99) mg/dL Calcium 7.5 L (8.4-10.2) mg/dL Total Protein 6.1 L (6.3-8.2) g/dL Albumin 2.7 L (3.5-5.0) g/dL 06/22/19 06/22/19 06/22/19 Range/Units 06:10 07:17 08:59 WBC (3.8-10.6) k/uL RBC (4.30-5.90) m/uL Hgb (13.0-17.5) gm/dL Hct (39.0-53.0) % RDW (11.5-15.5) % Neutrophils # (1.3-7.7) k/uL ABG pH (7.35-7.45) ABG pCO2 (35-45) mmHg ABG pO2 (83-108) mmHg ABG HCO3 (21-25) mmol/L ABG Total CO2 (19-24) mmol/L ABG O2 Saturation (94-97) % Potassium (3.5-5.1) mmol/L Chloride (98-107) mmol/L BUN (9-20) mg/dL Creatinine (0.66-1.25) mg/dL Glucose (74-99) mg/dL POC Glucose (mg/dL) 174 H 163 H 151 H (75-99) mg/dL Calcium (8.4-10.2) mg/dL Total Protein (6.3-8.2) g/dL Albumin (3.5-5.0) g/dL 06/22/19 06/22/19 06/22/19 Range/Units 09:43 10:10 11:12 WBC (3.8-10.6) k/uL RBC (4.30-5.90) m/uL Hgb (13.0-17.5) gm/dL Hct (39.0-53.0) % RDW (11.5-15.5) % Neutrophils # (1.3-7.7) k/uL ABG pH 7.29 L (7.35-7.45) ABG pCO2 (35-45) mmHg ABG pO2 (83-108) mmHg ABG HCO3 19 L (21-25) mmol/L ABG Total CO2 (19-24) mmol/L ABG O2 Saturation (94-97) % Potassium (3.5-5.1) mmol/L Chloride (98-107) mmol/L BUN (9-20) mg/dL Creatinine (0.66-1.25) mg/dL Glucose (74-99) mg/dL POC Glucose (mg/dL) 170 H 168 H (75-99) mg/dL Calcium (8.4-10.2) mg/dL Total Protein (6.3-8.2) g/dL Albumin (3.5-5.0) g/dL 06/22/19 06/22/19 06/22/19 Range/Units 12:02 13:03 13:11 WBC (3.8-10.6) k/uL RBC (4.30-5.90) m/uL Hgb (13.0-17.5) gm/dL Hct (39.0-53.0) % RDW (11.5-15.5) % Neutrophils # (1.3-7.7) k/uL ABG pH 7.25 L (7.35-7.45) ABG pCO2 49 H (35-45) mmHg ABG pO2 (83-108) mmHg ABG HCO3 (21-25) mmol/L ABG Total CO2 (19-24) mmol/L ABG O2 Saturation 98.0 H (94-97) % Potassium (3.5-5.1) mmol/L Chloride (98-107) mmol/L BUN (9-20) mg/dL Creatinine (0.66-1.25) mg/dL Glucose (74-99) mg/dL POC Glucose (mg/dL) 166 H 161 H (75-99) mg/dL Calcium (8.4-10.2) mg/dL Total Protein (6.3-8.2) g/dL Albumin (3.5-5.0) g/dL 06/22/19 06/22/19 06/22/19 Range/Units 14:59 16:31 16:55 WBC (3.8-10.6) k/uL RBC (4.30-5.90) m/uL Hgb (13.0-17.5) gm/dL Hct (39.0-53.0) % RDW (11.5-15.5) % Neutrophils # (1.3-7.7) k/uL ABG pH 7.31 L (7.35-7.45) ABG pCO2 47 H (35-45) mmHg ABG pO2 (83-108) mmHg ABG HCO3 (21-25) mmol/L ABG Total CO2 25 H (19-24) mmol/L ABG O2 Saturation 98.3 H (94-97) % Potassium (3.5-5.1) mmol/L Chloride (98-107) mmol/L BUN (9-20) mg/dL Creatinine (0.66-1.25) mg/dL Glucose (74-99) mg/dL POC Glucose (mg/dL) 153 H 147 H (75-99) mg/dL Calcium (8.4-10.2) mg/dL Total Protein (6.3-8.2) g/dL Albumin (3.5-5.0) g/dL 06/22/19 Range/Units 16:59 WBC (3.8-10.6) k/uL RBC (4.30-5.90) m/uL Hgb (13.0-17.5) gm/dL Hct (39.0-53.0) % RDW (11.5-15.5) % Neutrophils # (1.3-7.7) k/uL ABG pH (7.35-7.45) ABG pCO2 (35-45) mmHg ABG pO2 (83-108) mmHg ABG HCO3 (21-25) mmol/L ABG Total CO2 (19-24) mmol/L ABG O2 Saturation (94-97) % Potassium (3.5-5.1) mmol/L Chloride (98-107) mmol/L BUN (9-20) mg/dL Creatinine (0.66-1.25) mg/dL Glucose (74-99) mg/dL POC Glucose (mg/dL) 144 H (75-99) mg/dL Calcium (8.4-10.2) mg/dL Total Protein (6.3-8.2) g/dL Albumin (3.5-5.0) g/dL Assessment and Plan Plan: -Type 2 diabetes mellitus: Further management as mentioned above patient will be started on long-acting insulin once patient is off IV insulin then patient will restart on pre-meal and sliding scale insulin -COPD without any significant acute exacerbation -Postoperative subcutaneous emphysema which is expected -Status post VATS thoracoscopy right-sided thoracotomy by lobectomy in the right side with mediastinal lymph node dissection: Management is being done by cardiothoracic surgery -Acute hypoxic respiratory failure post surgery expected to improve -Gastroesophageal reflux disease -Obstructive sleep apnea -Acute renal failure on 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
[2019-06-22 18:07] LABS: Glucose,Whole Blood 141 mg/dL (75-99)
[2019-06-22] MEDS: MORPHINE PCA 50 MG/50 ML BAG IV PRN (18:07)
[2019-06-22] MEDS: CHOLECALCIFEROL 1,000 UNIT TAB PO SCH (18:19)
[2019-06-22 19:06] LABS: Glucose,Whole Blood 153 mg/dL (75-99)
--- NOTE | 2019-06-22 19:26 | ECHOF ---
Referral Reason:eval for tamponade MEASUREMENTS -------- HEIGHT: 152.4 cm WEIGHT: 109.8 kg BP: RVIDd: 3.4 cm (< 3.3) IVSd: 1.2 cm (0.6 - 1.1) LVIDd: 4.4 cm (3.9 - 5.3) LVPWd: 1.3 cm (0.6 - 1.1) IVSs: 1.5 cm LVIDs: 2.5 cm LVPWs: 1.9 cm Ao Diam: 3.2 cm (2.0 - 3.7) AV Cusp: 2.0 cm (1.5 - 2.6) LA Diam: 3.7 cm (2.7 - 3.8) MV E Julián: 1.05 m/s MV DecT: 199 ms MV A Julián: 1.06 m/s MV E/A Ratio: 0.99 RAP: 5.00 mmHg RVSP: 61.68 mmHg FINDINGS -------- Sinus rhythm. Resting tachycardia (HR>100bpm). This was a technically adequate study. There is mild concentric left ventricular hypertrophy. Overall left ventricular systolic function i s normal with, an EF between 55 - 60 %. The right ventricle is normal in size. The left atrial size is normal. The right atrial size is normal. The aortic valve is trileaflet, and appears structurally normal. No aortic stenosis or regurgitation. The mitral valve is normal. Mild mitral regurgitation is present. Mild tricuspid regurgitation present. There is moderate pulmonary hypertension. The right ventric ular systolic pressure, as measured by Doppler, is 61.68mmHg. There is no pulmonic regurgitation present. The aortic root size is normal. Echo free space represents a pericardial fat pad. CONCLUSIONS -------- 1. Sinus rhythm. 2. Resting tachycardia (HR>100bpm). 3. This was a technically adequate study. 4. There is mild concentric left ventricular hypertrophy. 5. Overall left ventricular systolic function is normal with, an EF between 55 - 60 %. 6. The left atrial size is normal. 7. The aortic valve is trileaflet, and appears structurally normal. No aortic stenosis or regurgitati on. 8. Mild mitral regurgitation is present. 9. Mild tricuspid regurgitation present. 10. There is moderate pulmonary hypertension. 11. There is no pulmonic regurgitation present. 12. The aortic root size is normal. 13. Echo free space represents a pericardial fat pad. TEXTILE DYER: Sherry Kahn RDCS
[2019-06-22 20:43] LABS: Glucose,Whole Blood 155 mg/dL (75-99)
[2019-06-22] MEDS ORDERED: INSULIN DETEMIR (LEVEMIR) 100 UNIT/ML SYR SQ SCH (21:00)
[2019-06-22] MEDS ORDERED: NON FORMULARY DRUG (Simvastatin 40 MG) PO SCH (21:00)
[2019-06-22 21:04] LABS: Glucose,Whole Blood 158 mg/dL (75-99)
[2019-06-22] MEDS: SENNOSIDES-DOCUSATE SODIUM 1 EACH TAB PO SCH (21:41)
[2019-06-22] MEDS: TAMSULOSIN 0.4 MG CAP.ER.24H PO SCH (21:42)
[2019-06-22 23:11] LABS: Glucose,Whole Blood 143 mg/dL (75-99)
[2019-06-23 00:06] LABS: Glucose,Whole Blood 94 mg/dL (75-99)
[2019-06-23 02:12] LABS: Glucose,Whole Blood 130 mg/dL (75-99)
[2019-06-23] MEDS: HEPARIN SODIUM,PORCINE 5,000 UNIT/ML 1 ML VIAL SQ SCH ×3 (02:18→16:52)
[2019-06-23] MEDS: ACETAMINOPHEN IV (For NPO) 1,000 MG in EMPTY BAG 1 BAG IVPB SCH ×2 (02:20→07:17)
[2019-06-23 04:26] LABS: Anisocytosis Slight; Basophils # (A) 0.1 k/uL (0-0.2); Basophils % (A) 0 %; Eosinophils # (A) 0.1 k/uL (0-0.7); Eosinophils % (A) 0 %; HCT 26.3 % (39.0-53.0); HGB 7.9 gm/dL (13.0-17.5); Hypochromasia Moderate; Lymphocytes # (A) 0.8 k/uL (1.0-4.8); Lymphocytes % (A) 3 %; MCH 25.9 pg (25.0-35.0); MCV 86.6 fL (80.0-100.0); Mean Platelet Volume 8.5; Monocytes # (A) 1.1 k/uL (0-1.0); Monocytes % (A) 4 %; Neutrophils # (A) 21.7 k/uL (1.3-7.7); Neutrophils % (A) 91 %; Platelet Count 293 k/uL (150-450); Poikilocytosis Slight; RBC 3.03 m/uL (4.30-5.90); RDW 16.5 % (11.5-15.5)
[2019-06-23 05:06] LABS: Glucose,Whole Blood 129 mg/dL (75-99)
[2019-06-23 05:13] LABS: Ionized Calcium 4.8 mg/dL (4.5-5.3)
[2019-06-23 05:28] LABS: Albumin 2.3 g/dL (3.5-5.0); Calcium 7.4 mg/dL (8.4-10.2); Potassium 4.6 mmol/L (3.5-5.1); Total Bilirubin 0.4 mg/dL (0.2-1.3); Total Protein 5.5 g/dL (6.3-8.2)
[2019-06-23 06:22] LABS: Glucose,Whole Blood 111 mg/dL (75-99)
[2019-06-23 06:36] LABS: ABG Base Excess -4.7 mmol/L; ABG HCO3 22 mmol/L (21-25); ABG Oxygen Saturation 99.2 % (94-97); ABG PCO2 48 mmHg (35-45); ABG PH 7.27 (7.35-7.45); ABG PO2 157 mmHg (83-108); ABG TCO2 24 mmol/L (19-24); Allen Test Performed? Yes
--- NOTE | 2019-06-23 06:54 | XR ---
EXAMINATION TYPE: XR chest 1V portable DATE OF EXAM: 06/23/2019 CLINICAL HISTORY: Post partial pneumonectomy progress study. TECHNIQUE: Single AP portable upright view of the chest is obtained. COMPARISON: Chest x-ray from one day earlier and older studies FINDINGS: There is stable right apical chest tube. I see no new pneumothorax. Persistent elevated ri ght diaphragm or right-sided volume loss. Adjacent right subcutaneous emphysema noted. There is now b ibasilar opacities. Heart size stable and mildly enlarged. Degenerative change bilateral glenohumeral joints. IMPRESSION: Persistent right sided chest tube without pneumothorax. Right-sided volume loss with biba silar acute infiltrate and/or atelectasis now present.
[2019-06-23 07:00] LABS: Glucose,Whole Blood 109 mg/dL (75-99)
[2019-06-23] MEDS ORDERED: DEXTROSE 5% IN WATER 100 ML with AMIODARONE 150 MG IV ONE ×3 (07:15→10:30)
[2019-06-23] MEDS: BUDESONIDE 0.5 MG/2 ML NEBU INHALATION SCH ×2 (07:17→21:44)
[2019-06-23] MEDS: IPRATROPIUM-ALBUTEROL 3 ML NEB IH SCH ×5 (07:17→21:45)
[2019-06-23] MEDS: HYDROcodone/APAP 5-325MG 1 EACH TAB PO PRN (07:17)
[2019-06-23] MEDS ORDERED: AMIODARONE 360 MG in DEXTROSE 5% IN WATER 200 ML IV ONE ×2 (07:30)
[2019-06-23 08:15] LABS: ABG Base Excess -5.5 mmol/L; ABG HCO3 21 mmol/L (21-25); ABG Oxygen Saturation 97.8 % (94-97); ABG PCO2 44 mmHg (35-45); ABG PH 7.29 (7.35-7.45); ABG PO2 99 mmHg (83-108); ABG TCO2 22 mmol/L (19-24); Allen Test Performed? Yes
[2019-06-23] MEDS ORDERED: fentaNYL (PF) 50 MCG/ML 2 ML AMP IVP PRN (08:44)
[2019-06-23] MEDS ORDERED: SODIUM BICARB 8.4% 50 ML SYR (1 MEQ/ML) IV STA (08:49)
[2019-06-23] MEDS ORDERED: FUROSEMIDE 10 MG/ML 4 ML VIAL IV STA (08:50)
[2019-06-23] MEDS ORDERED: DIGOXIN 250 MCG/ML 2 ML AMP IVP STA (08:51)
[2019-06-23 09:05] LABS: Glucose,Whole Blood 208 mg/dL (75-99)
--- NOTE | 2019-06-23 09:20 | P.PN ---
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 Past medical history of [place] mediastinoscopy with l ymph node biopsy, COPD with preoperative FEV1 82% of predicted, previous tobacco dependence, obstructive sleep apnea without home CPAP use, as needed home oxygen use, coronary artery disease with myocardial infarction and prior stenting, hypertension, insulin-dependent diabetes, chronic kidney disease, and recent laminectomy with subsequent sepsis. POD #2 right VATS thoracoscopy, right thoracotomy, right bi-lobectomy with mediastinal lymph node dissection (right upper and right middle lobe) Postoperative hypotension, unexpected, possible volume loss. Postoperative paroxysmal atrial fibrillation, an unexpected outcome. Postoperative acute blood loss anemia, an unexpected but potential outcome of surgery due to hemodilution. Postoperative pain, expected. The patient is currently lying in bed in the intensive care unit. He continues to complain of surgical type pain to his right thoracotomy incision site and chest tube insertion site. Morphine LEGAL ADMINISTRATIVE SECRETARY remains in place for pain control. This morning around 6:30 AM the patient went into paroxysmal atrial fibrillation with RVR heart rate as high as 175 BPM, currently the bedside monitor is showing A. fib with RVR heart rate 120s to 130s. Subsequently, he was started on amiodarone drip per protocol and has received 1 amiodarone bolus of 150 mg IV piggyback. When the patient went into A. fib with RVR he became symptomatic with shortness of breath and was subsequently placed on BiPAP with settings 12 over 4, rate of 12 with 50% FiO2. The patient's ABGs this morning prior to starting him on BiPAP were pH 7.27, pCO2 48, pO2 157, HCO3 22, O2 sats 99.2 percent, with a base excess -4.7 on 15 L high flow nasal cannula. The patient continues to have episodes of hypotension and his norepinephrine drip has been adjusted to 0.22 mcg/kg/m. His right pleural chest tubes remain in place to low continuous wall suction -20 cm H2O. Continuous air leak is present. Draining thin serosanguineous drainage with 220 mL output the last 8 hours, 820 mL output the last 24 hours. Labs this morning show a WBC count 24.0, hemoglobin 7.9, BUN 27 and a creatinine of 1.60. His T-max temperature in the last 24 hours is 100.2F. Objective - Vital Signs Vital signs: Vital Signs Temp 100.2 F H 06/23/19 04:00 Pulse 135 H 06/23/19 07:50 Resp 23 06/23/19 07:00 BP 83/47 06/23/19 07:00 Pulse Ox 100 06/23/19 07:00 Intake & Output 06/22/19 06/23/19 06/23/19 18:59 06:59 18:59 Intake Total 3662.082 488.675 37.697 Output Total 2185 1075 60 Balance 1477.082 -586.325 -22.303 Weight 114 kg Intake: IV 1946 276 33 Calcium Gluconate 1 gm In 200 Sodium Chloride 0.9% 100 ml @ 100 mls/hr IVPB ONCE ONE Rx#:[id number] Pressure bags 36 36 3 Sodium Chloride 0.9% 1, 710 240 30 000 ml @ 30 mls/hr IV . Q24H [facility] Rx#:[id number] Sodium Chloride 0.9% 1, 1000 000 ml @ 999 mls/hr IV . Q1H1M ONE Rx#:[id number] Intake, IV Titration 716.082 212.675 4.697 Amount ACETAMINOPHEN IV (For NPO 200 ) 1,000 mg In Empty Bag 1 bag @ 400 mls/hr IVPB Q6H [facility] Rx#:[id number] Insulin Regular 100 unit 74.605 62.847 4.697 In Sodium Chloride 0.9% 100 ml @ Per Protocol IV .Q0M [facility] Rx#:[id number] Norepinephrine 4 mg In 441.477 149.828 Sodium Chloride 0.9% 250 ml @ 0.05 MCG/KG/MIN 20. 955 mls/hr IV .Q12H8M [facility] Rx#:[id number] Oral 1000 Output: Chest Tube Drainage 440 220 Right Lateral Chest 440 220 Urine 1745 855 60 Other: Voiding Method Indwelling Catheter Indwelling Catheter ABP, PAP, CO, CI - Last Documented Arterial Blood Pressure 88/33 - Constitutional Constitutional Comment(s): Complaining of surgical type pain to his right thoracotomy incision site. Episodes of restlessness. General appearance: Present: cooperative, mild distress, obese - EENT Eyes: Present: PERRLA - Respiratory Details: Coarse rhonchi throughout. Diminished to his bilateral bases. Respirations are symmetrical and slightly labored with BiPAP support. Oxygen saturations 97% on current BiPAP settings problem before with a rate of 12 and FiO2 50%. Right pleural chest tubes in place to low continuous wall suction -20 cm H2O. Continuous air leak is present. Draining thin serosanguineous drainage. Unable to tolerate incentive spirometry at this time. - Cardiovascular Details: Irregular rhythm with a tachycardic rate. S1 and S2 present, negative for S3, gallop or murmur. Bedside telemetry showing atrial fibrillation with RVR heart rate 121 BPM. No edema present. Knee-high sequential compression devices in place was bilateral lower extremities. - Gastrointestinal Gastrointestinal Comment(s): Abdomen is soft, nontender and slightly distended. Hypoactive bowel sounds present all 4 abdominal quadrants. No guarding or rigidity. No organomegaly appreciated. - Genitourinary Genitourinary Comment(s): Mckeon catheter for accurate I&O, draining clear yellow urine. 60-100 mL an hour output. - Integumentary Integumentary Comment(s): Skin is warm and dry. No clubbing or cyanosis is present. Right thoracotomy incision is clean, dry and approximated. No drainage or redness is present. Gauze dressing is clean, dry and in place. Right chest tube dressings clean dry and in place. - Neurologic Neurologic: Present: CNII-XII intact - Musculoskeletal Musculoskeletal: Present: generalized weakness, strength equal bilaterally - Psychiatric Psychiatric Comment(s): Episodes of restlessness and confusion. Psychiatric: Present: appropriate affect - Allied health notes Allied health notes reviewed: nursing - Labs CBC & Chem 7: 06/23/19 04:00 06/23/19 04:00 Labs: Abnormal Lab Results - Last 24 Hours (Table) 06/22/19 06/22/19 06/22/19 Range/Units 08:59 09:43 10:10 WBC (3.8-10.6) k/uL RBC (4.30-5.90) m/uL Hgb (13.0-17.5) gm/dL Hct (39.0-53.0) % MCHC (31.0-37.0) g/dL RDW (11.5-15.5) % Neutrophils # (1.3-7.7) k/uL Lymphocytes # (1.0-4.8) k/uL Monocytes # (0-1.0) k/uL ABG pH 7.29 L (7.35-7.45) ABG pCO2 (35-45) mmHg ABG pO2 (83-108) mmHg ABG HCO3 19 L (21-25) mmol/L ABG Total CO2 (19-24) mmol/L ABG O2 Saturation (94-97) % Chloride (98-107) mmol/L BUN (9-20) mg/dL Creatinine (0.66-1.25) mg/dL Glucose (74-99) mg/dL POC Glucose (mg/dL) 151 H 170 H (75-99) mg/dL Calcium (8.4-10.2) mg/dL AST (17-59) U/L Total Protein (6.3-8.2) g/dL Albumin (3.5-5.0) g/dL 06/22/19 06/22/19 06/22/19 Range/Units 11:12 12:02 13:03 WBC (3.8-10.6) k/uL RBC (4.30-5.90) m/uL Hgb (13.0-17.5) gm/dL Hct (39.0-53.0) % MCHC (31.0-37.0) g/dL RDW (11.5-15.5) % Neutrophils # (1.3-7.7) k/uL Lymphocytes # (1.0-4.8) k/uL Monocytes # (0-1.0) k/uL ABG pH (7.35-7.45) ABG pCO2 (35-45) mmHg ABG pO2 (83-108) mmHg ABG HCO3 (21-25) mmol/L ABG Total CO2 (19-24) mmol/L ABG O2 Saturation (94-97) % Chloride (98-107) mmol/L BUN (9-20) mg/dL Creatinine (0.66-1.25) mg/dL Glucose (74-99) mg/dL POC Glucose (mg/dL) 168 H 166 H 161 H (75-99) mg/dL Calcium (8.4-10.2) mg/dL AST (17-59) U/L Total Protein (6.3-8.2) g/dL Albumin (3.5-5.0) g/dL 06/22/19 06/22/19 06/22/19 Range/Units 13:11 14:59 16:31 WBC (3.8-10.6) k/uL RBC (4.30-5.90) m/uL Hgb (13.0-17.5) gm/dL Hct (39.0-53.0) % MCHC (31.0-37.0) g/dL RDW (11.5-15.5) % Neutrophils # (1.3-7.7) k/uL Lymphocytes # (1.0-4.8) k/uL Monocytes # (0-1.0) k/uL ABG pH 7.25 L (7.35-7.45) ABG pCO2 49 H (35-45) mmHg ABG pO2 (83-108) mmHg ABG HCO3 (21-25) mmol/L ABG Total CO2 (19-24) mmol/L ABG O2 Saturation 98.0 H (94-97) % Chloride (98-107) mmol/L BUN (9-20) mg/dL Creatinine (0.66-1.25) mg/dL Glucose (74-99) mg/dL POC Glucose (mg/dL) 153 H 147 H (75-99) mg/dL Calcium (8.4-10.2) mg/dL AST (17-59) U/L Total Protein (6.3-8.2) g/dL Albumin (3.5-5.0) g/dL 06/22/19 06/22/19 06/22/19 Range/Units 16:55 16:59 18:05 WBC (3.8-10.6) k/uL RBC (4.30-5.90) m/uL Hgb (13.0-17.5) gm/dL Hct (39.0-53.0) % MCHC (31.0-37.0) g/dL RDW (11.5-15.5) % Neutrophils # (1.3-7.7) k/uL Lymphocytes # (1.0-4.8) k/uL Monocytes # (0-1.0) k/uL ABG pH 7.31 L (7.35-7.45) ABG pCO2 47 H (35-45) mmHg ABG pO2 (83-108) mmHg ABG HCO3 (21-25) mmol/L ABG Total CO2 25 H (19-24) mmol/L ABG O2 Saturation 98.3 H (94-97) % Chloride (98-107) mmol/L BUN (9-20) mg/dL Creatinine (0.66-1.25) mg/dL Glucose (74-99) mg/dL POC Glucose (mg/dL) 144 H 141 H (75-99) mg/dL Calcium (8.4-10.2) mg/dL AST (17-59) U/L Total Protein (6.3-8.2) g/dL Albumin (3.5-5.0) g/dL 06/22/19 06/22/19 06/22/19 Range/Units 19:05 20:41 21:03 WBC (3.8-10.6) k/uL RBC (4.30-5.90) m/uL Hgb (13.0-17.5) gm/dL Hct (39.0-53.0) % MCHC (31.0-37.0) g/dL RDW (11.5-15.5) % Neutrophils # (1.3-7.7) k/uL Lymphocytes # (1.0-4.8) k/uL Monocytes # (0-1.0) k/uL ABG pH (7.35-7.45) ABG pCO2 (35-45) mmHg ABG pO2 (83-108) mmHg ABG HCO3 (21-25) mmol/L ABG Total CO2 (19-24) mmol/L ABG O2 Saturation (94-97) % Chloride (98-107) mmol/L BUN (9-20) mg/dL Creatinine (0.66-1.25) mg/dL Glucose (74-99) mg/dL POC Glucose (mg/dL) 153 H 155 H 158 H (75-99) mg/dL Calcium (8.4-10.2) mg/dL AST (17-59) U/L Total Protein (6.3-8.2) g/dL Albumin (3.5-5.0) g/dL 06/22/19 06/23/19 06/23/19 Range/Units 23:09 02:10 04:00 WBC 24.0 H (3.8-10.6) k/uL RBC 3.03 L (4.30-5.90) m/uL Hgb 7.9 L (13.0-17.5) gm/dL Hct 26.3 L (39.0-53.0) % MCHC 30.0 L (31.0-37.0) g/dL RDW 16.5 H (11.5-15.5) % Neutrophils # 21.7 H (1.3-7.7) k/uL Lymphocytes # 0.8 L (1.0-4.8) k/uL Monocytes # 1.1 H (0-1.0) k/uL ABG pH (7.35-7.45) ABG pCO2 (35-45) mmHg ABG pO2 (83-108) mmHg ABG HCO3 (21-25) mmol/L ABG Total CO2 (19-24) mmol/L ABG O2 Saturation (94-97) % Chloride (98-107) mmol/L BUN (9-20) mg/dL Creatinine (0.66-1.25) mg/dL Glucose (74-99) mg/dL POC Glucose (mg/dL) 143 H 130 H (75-99) mg/dL Calcium (8.4-10.2) mg/dL AST (17-59) U/L Total Protein (6.3-8.2) g/dL Albumin (3.5-5.0) g/dL 06/23/19 06/23/19 06/23/19 Range/Units 04:00 05:04 06:21 WBC (3.8-10.6) k/uL RBC (4.30-5.90) m/uL Hgb (13.0-17.5) gm/dL Hct (39.0-53.0) % MCHC (31.0-37.0) g/dL RDW (11.5-15.5) % Neutrophils # (1.3-7.7) k/uL Lymphocytes # (1.0-4.8) k/uL Monocytes # (0-1.0) k/uL ABG pH (7.35-7.45) ABG pCO2 (35-45) mmHg ABG pO2 (83-108) mmHg ABG HCO3 (21-25) mmol/L ABG Total CO2 (19-24) mmol/L ABG O2 Saturation (94-97) % Chloride 110 H (98-107) mmol/L BUN 27 H (9-20) mg/dL Creatinine 1.60 H (0.66-1.25) mg/dL Glucose 137 H (74-99) mg/dL POC Glucose (mg/dL) 129 H 111 H (75-99) mg/dL Calcium 7.4 L (8.4-10.2) mg/dL AST 60 H (17-59) U/L Total Protein 5.5 L (6.3-8.2) g/dL Albumin 2.3 L (3.5-5.0) g/dL 06/23/19 06/23/19 Range/Units 06:31 06:58 WBC (3.8-10.6) k/uL RBC (4.30-5.90) m/uL Hgb (13.0-17.5) gm/dL Hct (39.0-53.0) % MCHC (31.0-37.0) g/dL RDW (11.5-15.5) % Neutrophils # (1.3-7.7) k/uL Lymphocytes # (1.0-4.8) k/uL Monocytes # (0-1.0) k/uL ABG pH 7.27 L (7.35-7.45) ABG pCO2 48 H (35-45) mmHg ABG pO2 157 H (83-108) mmHg ABG HCO3 (21-25) mmol/L ABG Total CO2 (19-24) mmol/L ABG O2 Saturation 99.2 H (94-97) % Chloride (98-107) mmol/L BUN (9-20) mg/dL Creatinine (0.66-1.25) mg/dL Glucose (74-99) mg/dL POC Glucose (mg/dL) 109 H (75-99) mg/dL Calcium (8.4-10.2) mg/dL AST (17-59) U/L Total Protein (6.3-8.2) g/dL Albumin (3.5-5.0) g/dL - Imaging and Cardiology Chest x-ray: report reviewed, image reviewed Assessment and Plan Assessment: 1. 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 History of [place] mediastinoscopy with lymph node biopsy 3. COPD with preoperative FEV1 82% of predicted 4. Remote history of tobacco dependence 5. Obstructive sleep apnea without home CPAP use 6. Home oxygen use as needed 7. Coronary artery disease with previous myocardial infarction and prior stenting 8. Hypertension, currently postoperative hypertension on IV pressors 9. Insulin dependent diabetes 10. Chronic kidney disease 11. Recent laminectomy with subsequent sepsis in March 2019 12. GERD 13. Postoperative pain, expected to continue thoracotomy incision 14. Postoperative paroxysmal atrial fibrillation, unexpected 15. Postoperative acute blood loss anemia, unexpected Plan: 1. Continue right pleural chest tubes to continuous wall suction -20 cm H2O. Continue to monitor for resolution of air leak. Surgical pathology remains pending. 2. Continue bronchodilators, inhaled steroids per pulmonology management. 3. Wean O2 as tolerated, BiPAP management per pulmonary medicine. Encourage incentive spirometry 10 times every hour while awake. 4. Continue norepinephrine, wean norepinephrine as tolerated. 5. Will monitor daily labs and chest x-rays. Lactic acid 1.3 this a.m. Electrolyte replacement as necessary. 6. GI/DVT prophylaxis. 7. Transfuse 1 unit of PRBCs for hemoglobin this morning of 7.9. Give Lasix 40 mg IVP post transfusion of the unit of packed red blood cells. 8. Continue Lopressor. Patient went into atrial fibrillation this morning and amiodarone was initiated per protocol. Continue amiodarone for atrial fibrillation prophylaxis. 9. Pain control with current medication regimen. Avoid Toradol secondary to kidney function. May add in IV fentanyl for breakthrough pain 10. Continue Mckeon for accurate intake and output. 11. Increase activity when able, out of bed to chair. 12. Give one amp of sodium bicarbonate now. 13. Digoxin 0.5 mg IVP 1 now followed by 0.25 mg in 4 hours for atrial fibri llation prophylaxis. Digoxin level tomorrow morning. 14. Discontinue LEGAL ADMINISTRATIVE SECRETARY pump and start fentanyl 25 g IV every 4 hours when necessary pain. Continue [place] as ordered. 15. Medical management and other comorbidities per primary care service. 16. More recommendations to follow based on patient's clinical course. Time with Patient: Greater than 30
[2019-06-23] MEDS: NOREPINEPHRINE 4 MG in SODIUM CHLORIDE 0.9% 250 ML IV SCH ×2 (09:33→13:18)
[2019-06-23] MEDS: ASPIRIN 81 MG PO SCH (10:16)
[2019-06-23] MEDS: METOPROLOL TARTRATE 25 MG TAB PO SCH ×3 (10:17→22:04)
[2019-06-23] MEDS: PANTOPRAZOLE 40 MG TABLET PO SCH ×2 (10:17→10:46)
[2019-06-23] MEDS ORDERED: fentaNYL PCA 500 MCG/50 ML BAG IV PRN (10:39)
[2019-06-23] MEDS ORDERED: NALOXONE 0.4 MG/ML 1 ML VIAL IV PRN (10:39)
[2019-06-23] MEDS: ATORVASTATIN 40 MG TAB PO SCH (10:47)
[2019-06-23] MEDS: GABAPENTIN 300 MG CAP PO SCH ×4 (10:49→22:04)
[2019-06-23 11:26] LABS: Glucose,Whole Blood 253 mg/dL (75-99)
[2019-06-23] MEDS: INSULIN REGULAR 100 UNIT in SODIUM CHLORIDE 0.9% 100 ML IV SCH (11:27)
[2019-06-23 11:52] LABS: Glucose,Whole Blood 248 mg/dL (75-99)
[2019-06-23 12:04] LABS: ABG Base Excess -4.2 mmol/L; ABG HCO3 23 mmol/L (21-25); ABG Oxygen Saturation 97.5 % (94-97); ABG PCO2 48 mmHg (35-45); ABG PH 7.28 (7.35-7.45); ABG PO2 95 mmHg (83-108); ABG TCO2 24 mmol/L (19-24); Allen Test Performed? Yes
[2019-06-23] MEDS ORDERED: INSULIN ASPART (NovoLOG) 100 UNIT/ML VIAL SQ SCH ×2 (12:30)
[2019-06-23 13:00] LABS: Glucose,Whole Blood 208 mg/dL (75-99)
[2019-06-23] MEDS ORDERED: DIGOXIN 250 MCG/ML 2 ML AMP IVP ONE (13:00)
--- NOTE | 2019-06-23 13:02 | P.PN ---
Subjective Progress Note Date: 06/23/19 Principal diagnosis: Bronchogenic carcinoma, status post bilobectomy, postoperative day #2 This is an 83-year-old white male with history of COPD, right lung cancer, stage IIB. This was diagnosed via flexible bronchoscopy and endobronchial biopsies and lavage of the right middle lobe back on 02/07/2019. His PET scan was suspicious for mediastinal involvement, however the patient underwent bronchoscopy, mediastinoscopy with lymph node biopsy by Dr. Finley on 03/22/2019. His previous PET scan showed uptake in for R and 5 all lymph nodes hence lymph node staging of the 5R and 5 all was done for confirmation of metastatic disease. Pathology was negative on these notes. Hence the patient was referred back to see Dr. Finley, and he underwent right VATS thoracoscopy, right thoracotomy, right bilobectomy , mediastinal lymph node dissection, and postoperatively the patient was extubated, transferred to the intensive care unit, and I was asked to see him on consultation. Patient had about a liter of estimated blood loss during the surgery, his blood pressure is marginal in the ICU, it is 100/50, his heart rate is 80, patient is complaining of postsurgical pain. Mostly on the right side of the chest. . Patient is Patient was reevaluated today, his postoperative day #1,right VATS thoracoscopy, right thoracotomy, right bi-lobectomy with mediastinal lymph node dissection (right upper and right middle lobe) the main concern today seems to be related to severe postsurgical pain, requiring narcotics and he has a STAFF DEVELOPMENT COORDINATOR RN pump, patient is tachycardic, and he has hypotension did not respond to 2 L of fluid boluses, and now he is on norepinephrine at 0.11 mcg/kg/m. I discontinued his dopamine mostly because of tachycardia noted. Echocardiogram showed no evidence of pericardial tamponade. Chest x-ray showed expansion of the right lung, he continues to have some continuous air leak, but no evidence of pneumothorax. ABG earlier today showed a pO2 of 85 pCO2 of 40 pH of 7.29. Patient is on high flow nasal cannula at 12 L/m. Reevaluated today on 06/23/2019, patient remains in the intensive care unit, his postoperative day #2. Patient still requires significant amount of pain medication to control his pain, he was placed on BiPAP last night with IPAP of 12 and EPAP of 6, FiO2 is 50%, patient developed postoperative hypotension, and he is presently on norepinephrine at 0.24 mcg/kg/m. He developed atrial fibrillation with RVR, and now he is on amiodarone. He developed postoperative anemia requiring blood transfusion. He is receiving a unit of packed RBCs this morning. His hemoglobin earlier today was 7.9. Patient was symptomatic with low hemoglobin. Transfusion was ordered by thoracic surgery. Patient remains on morphine STAFF DEVELOPMENT COORDINATOR RN, however will try to switch him to fentanyl. Earlier this morning had atrial fibrillation with RVR rate as high as 175. As soon as he went into A. fib with RVR, patient was extremely symptomatic and extremely short of breath. ABG on BiPAP showed a pO2 of 95 pCO2 of 48 pH of 7.28. WBC count is up to 24 hemoglobin is 7.9. Basic metabolic profile is normal, renal profile remains marginal with creatinine of 1.60. Chest x-ray showed no evidence of right-sided pneumothorax, right-sided chest tube remains in place, right sided volume loss is noted. Minimal bibasilar atelectasis is noted Objective - Vital Signs Vital signs: Vital Signs Temp 101.4 F H 06/23/19 12:00 Pulse 109 H 06/23/19 12:00 Resp 19 06/23/19 12:00 BP 118/62 06/23/19 12:00 Pulse Ox 96 06/23/19 12:00 Intake & Output 06/22/19 06/23/19 06/23/19 18:59 06:59 18:59 Intake Total 3662.082 439.397 5151.869 Output Total 2185 1075 525 Balance 1477.082 -586.325 545.869 Weight 114 kg Intake: IV 1946 276 198 Calcium Gluconate 1 gm In 200 Sodium Chloride 0.9% 100 ml @ 100 mls/hr IVPB ONCE ONE Rx#:[id number] Pressure bags 36 36 18 Sodium Chloride 0.9% 1, 710 240 180 000 ml @ 30 mls/hr IV . Q24H [facility] Rx#:[id number] Sodium Chloride 0.9% 1, 1000 000 ml @ 999 mls/hr IV . Q1H1M ONE Rx#:[id number] Intake, IV Titration 716.082 212.675 562.869 Amount ACETAMINOPHEN IV (For NPO 200 ) 1,000 mg In Empty Bag 1 bag @ 400 mls/hr IVPB Q6H [facility] Rx#:[id number] Dextrose 5% in Water 100 100 ml @ 618 mls/hr IV .Q10M ONE with Amiodarone 150 mg Rx#:[id number] Dextrose 5% in Water 100 100 ml @ 618 mls/hr IV .Q10M ONE with Amiodarone 150 mg Rx#:[id number] Insulin Regular 100 unit 74.605 62.847 4.697 In Sodium Chloride 0.9% 100 ml @ Per Protocol IV .Q0M [facility] Rx#:[id number] Norepinephrine 4 mg In 441.477 149.828 358.172 Sodium Chloride 0.9% 250 ml @ 0.05 MCG/KG/MIN 20. 955 mls/hr IV .Q12H8M [facility] Rx#:[id number] Oral 1000 Blood Product 310 Rc Pheresis 2 As3 Unit 310 [id number] Output: Chest Tube Drainage 440 220 360 Right Lateral Chest 440 220 360 Urine 1745 855 165 Other: Voiding Method Indwelling Catheter Indwelling Catheter ABP, PAP, CO, CI - Last Documented Arterial Blood Pressure 115/49 - Exam Physical Exam: Revealed 83-year-old white on BiPAP, in mild respiratory distress. Head: Atraumatic normocephalic. HEENT:[Neck is supple.] [No neck masses.] [No thyromegaly.] [No JVD.] PERRLA, EOMI, no icterus. Chest: [Right-sided chest tube was noted. Continuous air leak was noted. Cardiac Exam: [Normal S1 and S2, no S3 gallop, no murmur.] Abdomen: [Soft, nontender, no megaly, no rebound, no guarding, normal bowel sounds.] Extremities: [No clubbing, trace of bipedal edema, no cyanosis.] Neurological Exam: Awake but confused. Otherwise ,No focal neurologic deficit.] Psychiatric: Normal mood affect and questionable mental status, questionable insight and judgment at this point.. Skin: No rashes. - Labs CBC & Chem 7: 06/23/19 04:00 06/23/19 04:00 Labs: Abnormal Lab Results - Last 24 Hours (Table) 06/13/19 06/22/19 06/22/19 Range/Units 08:41 13:03 13:11 WBC (3.8-10.6) k/uL RBC (4.30-5.90) m/uL Hgb (13.0-17.5) gm/dL Hct (39.0-53.0) % MCHC (31.0-37.0) g/dL RDW (11.5-15.5) % Neutrophils # (1.3-7.7) k/uL Lymphocytes # (1.0-4.8) k/uL Monocytes # (0-1.0) k/uL ABG pH 7.25 L (7.35-7.45) ABG pCO2 49 H (35-45) mmHg ABG pO2 (83-108) mmHg ABG Total CO2 (19-24) mmol/L ABG O2 Saturation 98.0 H (94-97) % Chloride (98-107) mmol/L BUN (9-20) mg/dL Creatinine (0.66-1.25) mg/dL Glucose (74-99) mg/dL POC Glucose (mg/dL) 161 H (75-99) mg/dL Calcium (8.4-10.2) mg/dL Magnesium (1.6-2.3) mg/dL AST (17-59) U/L Total Protein (6.3-8.2) g/dL Albumin (3.5-5.0) g/dL Crossmatch See Detail 06/22/19 06/22/19 06/22/19 Range/Units 14:59 16:31 16:55 WBC (3.8-10.6) k/uL RBC (4.30-5.90) m/uL Hgb (13.0-17.5) gm/dL Hct (39.0-53.0) % MCHC (31.0-37.0) g/dL RDW (11.5-15.5) % Neutrophils # (1.3-7.7) k/uL Lymphocytes # (1.0-4.8) k/uL Monocytes # (0-1.0) k/uL ABG pH 7.31 L (7.35-7.45) ABG pCO2 47 H (35-45) mmHg ABG pO2 (83-108) mmHg ABG Total CO2 25 H (19-24) mmol/L ABG O2 Saturation 98.3 H (94-97) % Chloride (98-107) mmol/L BUN (9-20) mg/dL Creatinine (0.66-1.25) mg/dL Glucose (74-99) mg/dL POC Glucose (mg/dL) 153 H 147 H (75-99) mg/dL Calcium (8.4-10.2) mg/dL Magnesium (1.6-2.3) mg/dL AST (17-59) U/L Total Protein (6.3-8.2) g/dL Albumin (3.5-5.0) g/dL Crossmatch 06/22/19 06/22/19 06/22/19 Range/Units 16:59 18:05 19:05 WBC (3.8-10.6) k/uL RBC (4.30-5.90) m/uL Hgb (13.0-17.5) gm/dL Hct (39.0-53.0) % MCHC (31.0-37.0) g/dL RDW (11.5-15.5) % Neutrophils # (1.3-7.7) k/uL Lymphocytes # (1.0-4.8) k/uL Monocytes # (0-1.0) k/uL ABG pH (7.35-7.45) ABG pCO2 (35-45) mmHg ABG pO2 (83-108) mmHg ABG Total CO2 (19-24) mmol/L ABG O2 Saturation (94-97) % Chloride (98-107) mmol/L BUN (9-20) mg/dL Creatinine (0.66-1.25) mg/dL Glucose (74-99) mg/dL POC Glucose (mg/dL) 144 H 141 H 153 H (75-99) mg/dL Calcium (8.4-10.2) mg/dL Magnesium (1.6-2.3) mg/dL AST (17-59) U/L Total Protein (6.3-8.2) g/dL Albumin (3.5-5.0) g/dL Crossmatch 06/22/19 06/22/19 06/22/19 Range/Units 20:41 21:03 23:09 WBC (3.8-10.6) k/uL RBC (4.30-5.90) m/uL Hgb (13.0-17.5) gm/dL Hct (39.0-53.0) % MCHC (31.0-37.0) g/dL RDW (11.5-15.5) % Neutrophils # (1.3-7.7) k/uL Lymphocytes # (1.0-4.8) k/uL Monocytes # (0-1.0) k/uL ABG pH (7.35-7.45) ABG pCO2 (35-45) mmHg ABG pO2 (83-108) mmHg ABG Total CO2 (19-24) mmol/L ABG O2 Saturation (94-97) % Chloride (98-107) mmol/L BUN (9-20) mg/dL Creatinine (0.66-1.25) mg/dL Glucose (74-99) mg/dL POC Glucose (mg/dL) 155 H 158 H 143 H (75-99) mg/dL Calcium (8.4-10.2) mg/dL Magnesium (1.6-2.3) mg/dL AST (17-59) U/L Total Protein (6.3-8.2) g/dL Albumin (3.5-5.0) g/dL Crossmatch 06/23/19 06/23/19 06/23/19 Range/Units 02:10 04:00 04:00 WBC 24.0 H (3.8-10.6) k/uL RBC 3.03 L (4.30-5.90) m/uL Hgb 7.9 L (13.0-17.5) gm/dL Hct 26.3 L (39.0-53.0) % MCHC 30.0 L (31.0-37.0) g/dL RDW 16.5 H (11.5-15.5) % Neutrophils # 21.7 H (1.3-7.7) k/uL Lymphocytes # 0.8 L (1.0-4.8) k/uL Monocytes # 1.1 H (0-1.0) k/uL ABG pH (7.35-7.45) ABG pCO2 (35-45) mmHg ABG pO2 (83-108) mmHg ABG Total CO2 (19-24) mmol/L ABG O2 Saturation (94-97) % Chloride 110 H (98-107) mmol/L BUN 27 H (9-20) mg/dL Creatinine 1.60 H (0.66-1.25) mg/dL Glucose 137 H (74-99) mg/dL POC Glucose (mg/dL) 130 H (75-99) mg/dL Calcium 7.4 L (8.4-10.2) mg/dL Magnesium (1.6-2.3) mg/dL AST 60 H (17-59) U/L Total Protein 5.5 L (6.3-8.2) g/dL Albumin 2.3 L (3.5-5.0) g/dL Crossmatch 06/23/19 06/23/19 06/23/19 Range/Units 04:00 05:04 06:21 WBC (3.8-10.6) k/uL RBC (4.30-5.90) m/uL Hgb (13.0-17.5) gm/dL Hct (39.0-53.0) % MCHC (31.0-37.0) g/dL RDW (11.5-15.5) % Neutrophils # (1.3-7.7) k/uL Lymphocytes # (1.0-4.8) k/uL Monocytes # (0-1.0) k/uL ABG pH (7.35-7.45) ABG pCO2 (35-45) mmHg ABG pO2 (83-108) mmHg ABG Total CO2 (19-24) mmol/L ABG O2 Saturation (94-97) % Chloride (98-107) mmol/L BUN (9-20) mg/dL Creatinine (0.66-1.25) mg/dL Glucose (74-99) mg/dL POC Glucose (mg/dL) 129 H 111 H (75-99) mg/dL Calcium (8.4-10.2) mg/dL Magnesium 1.5 L (1.6-2.3) mg/dL AST (17-59) U/L Total Protein (6.3-8.2) g/dL Albumin (3.5-5.0) g/dL Crossmatch 06/23/19 06/23/19 06/23/19 Range/Units 06:31 06:58 08:09 WBC (3.8-10.6) k/uL RBC (4.30-5.90) m/uL Hgb (13.0-17.5) gm/dL Hct (39.0-53.0) % MCHC (31.0-37.0) g/dL RDW (11.5-15.5) % Neutrophils # (1.3-7.7) k/uL Lymphocytes # (1.0-4.8) k/uL Monocytes # (0-1.0) k/uL ABG pH 7.27 L 7.29 L (7.35-7.45) ABG pCO2 48 H (35-45) mmHg ABG pO2 157 H (83-108) mmHg ABG Total CO2 (19-24) mmol/L ABG O2 Saturation 99.2 H 97.8 H (94-97) % Chloride (98-107) mmol/L BUN (9-20) mg/dL Creatinine (0.66-1.25) mg/dL Glucose (74-99) mg/dL POC Glucose (mg/dL) 109 H (75-99) mg/dL Calcium (8.4-10.2) mg/dL Magnesium (1.6-2.3) mg/dL AST (17-59) U/L Total Protein (6.3-8.2) g/dL Albumin (3.5-5.0) g/dL Crossmatch 06/23/19 06/23/19 06/23/19 Range/Units 09:04 11:14 11:51 WBC (3.8-10.6) k/uL RBC (4.30-5.90) m/uL Hgb (13.0-17.5) gm/dL Hct (39.0-53.0) % MCHC (31.0-37.0) g/dL RDW (11.5-15.5) % Neutrophils # (1.3-7.7) k/uL Lymphocytes # (1.0-4.8) k/uL Monocytes # (0-1.0) k/uL ABG pH (7.35-7.45) ABG pCO2 (35-45) mmHg ABG pO2 (83-108) mmHg ABG Total CO2 (19-24) mmol/L ABG O2 Saturation (94-97) % Chloride (98-107) mmol/L BUN (9-20) mg/dL Creatinine (0.66-1.25) mg/dL Glucose (74-99) mg/dL POC Glucose (mg/dL) 208 H 253 H 248 H (75-99) mg/dL Calcium (8.4-10.2) mg/dL Magnesium (1.6-2.3) mg/dL AST (17-59) U/L Total Protein (6.3-8.2) g/dL Albumin (3.5-5.0) g/dL Crossmatch 06/23/19 Range/Units 11:59 WBC (3.8-10.6) k/uL RBC (4.30-5.90) m/uL Hgb (13.0-17.5) gm/dL Hct (39.0-53.0) % MCHC (31.0-37.0) g/dL RDW (11.5-15.5) % Neutrophils # (1.3-7.7) k/uL Lymphocytes # (1.0-4.8) k/uL Monocytes # (0-1.0) k/uL ABG pH 7.28 L (7.35-7.45) ABG pCO2 48 H (35-45) mmHg ABG pO2 (83-108) mmHg ABG Total CO2 (19-24) mmol/L ABG O2 Saturation 97.5 H (94-97) % Chloride (98-107) mmol/L BUN (9-20) mg/dL Creatinine (0.66-1.25) mg/dL Glucose (74-99) mg/dL POC Glucose (mg/dL) (75-99) mg/dL Calcium (8.4-10.2) mg/dL Magnesium (1.6-2.3) mg/dL AST (17-59) U/L Total Protein (6.3-8.2) g/dL Albumin (3.5-5.0) g/dL Crossmatch Assessment and Plan Assessment: Impression: Status post right VATS thoracoscopy, right thoracotomy, right bilobectomy, mediastinal lymph node dissection. 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 Postoperative atrial fibrillation with RVR, expected. Postoperative anemia, expected. This is mostly secondary to blood loss. Postoperative subcu emphysema expected Postoperative hypotension, unexpected, however it is mostly related to pain medications, hypovolemia, strongly doubt sepsis Chronic obstructive pulmonary disease, mild preoperative FEV1 is 82% FEV/FVC is 73%. History of laminectomy and decompression L3/L4 on 04/14/2019. History of mediastinoscopy with lymph node biopsy on 03/22/2019 History of multiple comorbidities including type 2 diabetes, and diabetic neuropathy. benign essential hypertension, coronary artery disease and previous [place], obstructive sleep apnea syndrome, history of GERD. Recommendation: Continue norepinephrine and titrate accordingly. IV fluids boluses, and pressors titrate to a blood pressure with a mean of above 60. Continue postoperative care, Continue bronchodilators. Continue chest tube to suction Continue incentive spirometry Continue pain control, will switch to fentanyl STAFF DEVELOPMENT COORDINATOR RN pump. Resume home meds. Insulin drip as per protocol. Continue amiodarone for atrial fibrillation with RVR. Monitor daily chest x-rays. Early ambulation. GI and DVT prophylaxis. Overall pulmonary status at this point is marginal. Will not be surprised if the patient requires reintubation and mechanical ventilation. However will try to avoid as much as possible but will definitely consider if his condition gets any worse. Discussed his condition fully with thoracic surgery on the case. Critical care time is 33 minutes Time with Patient: Greater than 30
[2019-06-23] MEDS: MAGNESIUM SULFATE-D5W PMX 1 GM in DEXTROSE/WATER 1 100ML.BAG IVPB SCH ×2 (13:09→14:24)
[2019-06-23 13:12] LABS: Anisocytosis Slight; Basophils % (A) 0 %; Eosinophils # (A) 0.1 k/uL (0-0.7); Eosinophils % (A) 0 %; HCT 29.6 % (39.0-53.0); HGB 9.2 gm/dL (13.0-17.5); Hypochromasia Moderate; Lymphocytes # (A) 1.1 k/uL (1.0-4.8); Lymphocytes % (A) 4 %; MCH 26.4 pg (25.0-35.0); MCV 85.1 fL (80.0-100.0); Monocytes # (A) 1.1 k/uL (0-1.0); Monocytes % (A) 4 %; Neutrophils # (A) 26.9 k/uL (1.3-7.7); Neutrophils % (A) 91 %; Platelet Count 285 k/uL (150-450); Poikilocytosis Slight; RBC 3.48 m/uL (4.30-5.90); RDW 16.5 % (11.5-15.5); WBC 29.5 k/uL (3.8-10.6)
[2019-06-23 13:23] LABS: Calcium 7.3 mg/dL (8.4-10.2)
[2019-06-23] MEDS: AMIODARONE 300 MG in DEXTROSE 5% IN WATER 250 ML IV SCH ×2 (13:35)
[2019-06-23 14:22] LABS: Glucose,Whole Blood 183 mg/dL (75-99)
[2019-06-23 15:12] LABS: Glucose,Whole Blood 186 mg/dL (75-99)
[2019-06-23 16:06] LABS: ABG Base Excess -2.7 mmol/L; ABG HCO3 23 mmol/L (21-25); ABG Oxygen Saturation 97.1 % (94-97); ABG PCO2 46 mmHg (35-45); ABG PH 7.32 (7.35-7.45); ABG PO2 84 mmHg (83-108); ABG TCO2 25 mmol/L (19-24); Allen Test Performed? Yes
[2019-06-23 16:08] LABS: Glucose,Whole Blood 141 mg/dL (75-99)
[2019-06-23 17:00] LABS: Glucose,Whole Blood 121 mg/dL (75-99)
[2019-06-23 18:18] LABS: Glucose,Whole Blood 104 mg/dL (75-99)
[2019-06-23] MEDS: CHOLECALCIFEROL 1,000 UNIT TAB PO SCH (18:43)
--- NOTE | 2019-06-23 19:29 | PN ---
PROGRESS NOTE I am covering for Dr. Parra. DATE OF SERVICE: 06/23/2019 HISTORY OF PRESENT ILLNESS: This 83-year-old gentleman with a past medical history of multiple medical problems, admitted after bilobectomy and for bronchogenic carcinoma. The patient is postoperative day 2. This morning, the patient had some difficulty with breathing and shortness of breath. The patient is on BiPAP at this time. The patient is also found to have atrial fibrillation with a fast ventricular rate and patient received bolus of and currently on amiodarone drip at this time. The rhythm is converted to normal sinus rhythm. Patient blood sugar is also elevated. Fluctuating p.o. intake appears to be erratic. Patient is back on IV insulin drip at this time. The multiple consultants are following the patient closely. PAST MEDICAL HISTORY: Reviewed. REVIEW OF SYMPTOMS: Review of systems could not be taken the patient is on BIPAP. CURRENT MEDICATIONS: Reviewed and include: 1. [place] 5 mg q.4 p.r.n. 2. DuoNeb q.i.d. and p.r.n. 3. Amiodarone drip. 4. Aspirin. 5. Lipitor. 6. Dulcolax. 7. Pulmicort. 8. Ventolin. 9. Neurontin. 10.Heparin. 11.Insulin drip. 12.Narcan. 13.Noro-P. 14.Protonix. 15.Senokot. 16.Flomax. 17.Doses are reviewed. PHYSICAL EXAM: Patient is alert, oriented x3. Pulse 84, blood pressure 115/51, respiration 24, temperature 100.2, pulse ox 97% on BiPAP. HEENT: Conjunctivae normal. Oral mucosa moist. NECK is no jugular venous distention. No carotid bruit. No lymph node enlargement. CARDIOVASCULAR system: S1, S2 muffled. No S3, no S4. RESPIRATIONS: Breath sounds diminished in the bases. Bilateral scattered rhonchi and crackles. Expiratory wheezing. ABDOMEN: Soft, obese, nontender. LEGS: No edema. No swelling. NERVOUS SYSTEM: Diffusely weak. LABS: WBC 29.2, hemoglobin 9.2, and ABGs 7.28. Creatinine is 1.70. ASSESSMENT: 1. Status post right VATS thoracoscopy, right thoracotomy, right bilobectomy with mediastinal lymph node dissection, right upper and right middle lobe. 2. Possible acute hypoxic respiratory failure as expected. 3. Possible atrial fibrillation, as expected. 4. Postop pain as expected. 5. Increased WBC. 6. Anemia. 7. Increased creatinine with chronic kidney disease stage III. 8. Diabetes mellitus type 2. 9. Hypomagnesemia. 10.Gastroesophageal reflux disease. 11.History of hypertension. 12.History of myocardial infarction. 13.History of sleep apnea. 14.History of coronary artery disease, stent. 15.Remote history of nicotine dependence. 16.Obesity with body mass of 36.1. 17.FULL CODE. RECOMMENDATIONS AND DISCUSSION: This 83-year-old gentleman who presented with multiple complex medical issues, we will monitor the patient closely, continue the current medications, management and symptomatic treatment. Continue with amiodarone drip. Continue the bronchodilators. Otherwise resume the previous medications. We will continue to monitor. Repeat labs. DVT prophylaxis. Follow the patient closely with you and further recommendations to follow. KASHMIR / KAYLEYN: [id number] / CHU
[2019-06-23 20:13] LABS: ABG Base Excess -2.2 mmol/L; ABG HCO3 23 mmol/L (21-25); ABG Oxygen Saturation 96.8 % (94-97); ABG PCO2 40 mmHg (35-45); ABG PH 7.37 (7.35-7.45); ABG PO2 77 mmHg (83-108); ABG TCO2 24 mmol/L (19-24); Allen Test Performed? Yes
[2019-06-23 21:18] LABS: Glucose,Whole Blood 155 mg/dL (75-99)
--- NOTE | 2019-06-23 21:20 | XR ---
EXAMINATION TYPE: XR chest 1V portable DATE OF EXAM: 06/23/2019 COMPARISON: Today HISTORY: Lung surgery Findings Endotracheal tube is 12 mm from the radha. There is elevated right diaphragm. There is right chest t ube. There is tiny right apical pneumothorax. There is no heart failure. There is slight blunting lef t costophrenic angle.. IMPRESSION: Volume loss on the right side related to partial pneumonectomy. Tiny right apical pneumot horax. No heart failure. Pleural reaction at the left lung base improved compared to exam this holly lowery
[2019-06-23 21:36] LABS: Anisocytosis Slight; Basophils % (A) 0 %; Eosinophils % (A) 0 %; HCT 29.3 % (39.0-53.0); Hypochromasia Moderate; Lymphocytes # (A) 1.7 k/uL (1.0-4.8); Lymphocytes % (A) 6 %; MCH 26.3 pg (25.0-35.0); MCHC 30.8 g/dL (31.0-37.0); MCV 85.5 fL (80.0-100.0); Mean Platelet Volume 8.5; Monocytes # (A) 1.2 k/uL (0-1.0); Monocytes % (A) 4 %; Neutrophils # (A) 24.6 k/uL (1.3-7.7); Neutrophils % (A) 88 %; Platelet Count 291 k/uL (150-450); Poikilocytosis Slight; RBC 3.43 m/uL (4.30-5.90); RDW 16.6 % (11.5-15.5)
[2019-06-23 21:55] LABS: INR 1.1 (<1.2); Prothrombin Time 11.2 sec (9.0-12.0)
[2019-06-23] MEDS: SODIUM CHLORIDE 0.9% 1,000 ML IV SCH (22:04)
[2019-06-23] MEDS: SENNOSIDES-DOCUSATE SODIUM 1 EACH TAB PO SCH (22:04)
[2019-06-23] MEDS: TAMSULOSIN 0.4 MG CAP.ER.24H PO SCH (22:04)
[2019-06-23] MEDS ORDERED: VANCOMYCIN IV PER PHARMACY 1 EACH MISC MISCELLANE PRN (22:08)
[2019-06-23 22:09] LABS: Glucose,Whole Blood 171 mg/dL (75-99)
[2019-06-23] MEDS ORDERED: LEVOFLOXACIN 250MG-D5W PMX 250 MG in DEXTROSE/WATER 1 50ML.BAG IVPB SCH (22:30)
[2019-06-23 22:31] LABS: Calcium 7.4 mg/dL (8.4-10.2); Potassium 4.7 mmol/L (3.5-5.1)
[2019-06-23 22:59] LABS: Glucose,Whole Blood 153 mg/dL (75-99)
[2019-06-24] MEDS ORDERED: VANCOMYCIN 1,500 MG in SODIUM CHLORIDE 0.9% 250 ML IVPB SCH ×2
[2019-06-24 00:11] LABS: Glucose,Whole Blood 136 mg/dL (75-99)
[2019-06-24 01:12] LABS: Glucose,Whole Blood 107 mg/dL (75-99)
[2019-06-24] MEDS ORDERED: ACETAMINOPHEN TAB 500 MG TAB PO STA (01:38)
[2019-06-24] MEDS: AMIODARONE 300 MG in DEXTROSE 5% IN WATER 250 ML IV SCH ×6 (01:59→22:16)
[2019-06-24 02:10] LABS: Glucose,Whole Blood 103 mg/dL (75-99)
[2019-06-24 03:02] LABS: Glucose,Whole Blood 124 mg/dL (75-99)
[2019-06-24] MEDS: HEPARIN SODIUM,PORCINE 5,000 UNIT/ML 1 ML VIAL SQ SCH ×3 (03:53→16:14)
[2019-06-24 04:05] LABS: Glucose,Whole Blood 156 mg/dL (75-99)
[2019-06-24 04:58] LABS: Glucose,Whole Blood 62 mg/dL (75-99)
[2019-06-24 05:48] LABS: Glucose,Whole Blood 73 mg/dL (75-99)
--- NOTE | 2019-06-24 06:17 | XR ---
EXAMINATION TYPE: XR chest 1V portable DATE OF EXAM: 06/24/2019 COMPARISON: Yesterday HISTORY: Respiratory failure TECHNIQUE: Single view FINDINGS: There is right chest tube over the right lung apex. There is nasogastric tube in the stomac h. Endotracheal tube is 5 cm from the radha. There is blunting of the costophrenic angles. There is tiny right apical pneumothorax. IMPRESSION: Pleural effusions unchanged. Right basilar atelectasis unchanged.
[2019-06-24] MEDS: fentaNYL (PF) 1,000 MCG in SODIUM CHLORIDE 0.9% 80 ML IV SCH ×2 (06:18→22:17)
[2019-06-24 06:49] LABS: Anisocytosis Slight; Basophils # (A) 0.1 k/uL (0-0.2); Basophils % (A) 0 %; Eosinophils % (A) 0 %; HCT 27.3 % (39.0-53.0); HGB 8.5 gm/dL (13.0-17.5); Hypochromasia Marked; Lymphocytes # (A) 2.2 k/uL (1.0-4.8); Lymphocytes % (A) 8 %; MCH 26.9 pg (25.0-35.0); MCHC 31.3 g/dL (31.0-37.0); MCV 85.9 fL (80.0-100.0); Mean Platelet Volume 8.4; Monocytes # (A) 1.4 k/uL (0-1.0); Monocytes % (A) 5 %; Neutrophils # (A) 23.5 k/uL (1.3-7.7); Neutrophils % (A) 84 %; Platelet Count 312 k/uL (150-450); Poikilocytosis Slight; RBC 3.17 m/uL (4.30-5.90); RDW 16.1 % (11.5-15.5); WBC 28.2 k/uL (3.8-10.6)
[2019-06-24 06:56] LABS: Albumin 2.4 g/dL (3.5-5.0); Calcium 7.4 mg/dL (8.4-10.2); Digoxin 1.2 ng/mL; Potassium 4.8 mmol/L (3.5-5.1); Total Bilirubin 0.7 mg/dL (0.2-1.3); Total Protein 5.7 g/dL (6.3-8.2)
[2019-06-24 07:05] LABS: Glucose,Whole Blood 80 mg/dL (75-99)
[2019-06-24] MEDS: NOREPINEPHRINE 4 MG in SODIUM CHLORIDE 0.9% 250 ML IV SCH ×4 (08:00→18:50)
[2019-06-24] MEDS: PROPOFOL 1,000 MG in EMPTY BAG 1 BAG IV SCH ×2 (08:00→14:48)
[2019-06-24 08:08] LABS: ABG Base Excess -5.7 mmol/L; ABG HCO3 21 mmol/L (21-25); ABG Oxygen Saturation 98.2 % (94-97); ABG PCO2 47 mmHg (35-45); ABG PH 7.27 (7.35-7.45); ABG PO2 103 mmHg (83-108); ABG TCO2 23 mmol/L (19-24); Allen Test Performed? Yes
[2019-06-24] MEDS ORDERED: FUROSEMIDE 10 MG/ML 4 ML VIAL IV STA (08:20)
[2019-06-24] MEDS ORDERED: SODIUM BICARB 8.4% 50 ML SYR (1 MEQ/ML) IV STA (08:20)
[2019-06-24 08:29] LABS: Glucose,Whole Blood 122 mg/dL (75-99)
[2019-06-24] MEDS ORDERED: CALCIUM GLUCONATE 1 GM in SODIUM CHLORIDE 0.9% 100 ML IVPB ONE (08:30)
[2019-06-24] MEDS: ASPIRIN 81 MG PO SCH (08:37)
[2019-06-24] MEDS: ATORVASTATIN 40 MG TAB PO SCH (08:37)
[2019-06-24] MEDS: CHLORHEXIDINE GLUCONATE 15 ML CUP MUCOUS MEM SCH ×2 (08:37→22:16)
[2019-06-24] MEDS: IPRATROPIUM-ALBUTEROL 3 ML NEB IH SCH ×4 (08:43→19:17)
[2019-06-24] MEDS: BUDESONIDE 0.5 MG/2 ML NEBU INHALATION SCH ×2 (08:43→19:17)
[2019-06-24] MEDS: PANTOPRAZOLE 40 MG/10 ML VIAL IVP SCH (08:48)
[2019-06-24] MEDS: METOPROLOL TARTRATE 25 MG TAB PO SCH ×2 (09:00→22:16)
[2019-06-24] MEDS ORDERED: CISATRACURIUM 2 MG/ML 5 ML VIAL IV ONE (09:04)
[2019-06-24 09:29] LABS: Glucose,Whole Blood 139 mg/dL (75-99)
--- NOTE | 2019-06-24 09:37 | P.PN ---
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 Past medical history of [place] mediastinoscopy with l ymph node biopsy, COPD with preoperative FEV1 82% of predicted, previous tobacco dependence, obstructive sleep apnea without home CPAP use, as needed home oxygen use, coronary artery disease with myocardial infarction and prior stenting, hypertension, insulin-dependent diabetes, chronic kidney disease, and recent laminectomy with subsequent sepsis. POD #3 right VATS thoracoscopy, right thoracotomy, right bi-lobectomy with mediastinal lymph node dissection (right upper and right middle lobe) Postoperative hypotension, unexpected, possible volume loss. Postoperative paroxysmal atrial fibrillation, an unexpected outcome. Postoperative acute blood loss anemia, an unexpected but potential outcome of surgery due to hemodilution. Postoperative pain, expected. Postoperative acute respiratory failure requiring reintubation with mechanical ventilator support, unexpected The patient is currently lying in bed in the intensive care unit. Last evening around 9 PM the patient became lethargic and not following commands and was subsequently intubated and placed on mechanical ventilator support. The patient remains intubated with mechanical ventilator support, current mechanical ventilator settings are as follows, assist-control 20, tidal volume 450, FiO2 50% with PEEP of 5. ABG results this morning show a pH of 7.27, pCO2 47, pO2 103, HCO3 21, oxygen saturation 98.2, and a base excess of -5.7. A endotracheal tube cuff leak was noted this morning and the ET tube was repositioned by the respiratory therapist with no cuff leak present at this time. He remains sedated on propofol and fentanyl drip and he is moving all 4 extremities with verbal stimuli. Right pleural chest tubes remain in place to low continuous wall suction -20 cm H2O. Continuous air leak is present and they continued to drain thin serosanguineous drainage. 215 mL output from the chest tubes in the last 8 hours and 685 mL output last 24 hours. T-max temperature in the last 24 hours was 103.2F. [place] cultures were sent yesterday and he was started on Levaquin and vancomycin for antibiotic management. His bedside monitor is showing normal sinus rhythm this morning with a heart rate of 91 BPM. Amioda chance drip continues at 0.5 mg/m and remains on norepinephrine drip at 0.15 mcg/kg/m and his current blood pressure is 109/48 mmHg. chest x-ray this morning shows no evidence of a right-sided pneumothorax. Objective - Vital Signs Vital signs: Vital Signs Temp 98.7 F 06/24/19 05:00 Pulse 88 06/24/19 08:44 Resp 35 H 06/24/19 07:00 BP 110/52 06/24/19 07:00 Pulse Ox 97 06/24/19 07:00 Intake & Output 06/23/19 06/24/19 06/24/19 18:59 06:59 18:59 Intake Total 1830.419 714.384 217.519 Output Total 2245 1560 45 Balance -414.581 -845.616 172.519 Weight 112.4 kg Intake: IV 429 363 33 Pressure bags 39 33 3 Sodium Chloride 0.9% 1, 390 330 30 000 ml @ 30 mls/hr IV . Q24H [facility] Rx#:[id number] Intake, IV Titration 1091.419 351.384 184.519 Amount Amiodarone 300 mg In 250 150.417 Dextrose 5% in Water 250 ml @ 0.5 MG/MIN 25 mls/hr IV .Q10H [facility] Rx#: [id number] Dextrose 5% in Water 100 100 ml @ 618 mls/hr IV .Q10M ONE with Amiodarone 150 mg Rx#:[id number] Dextrose 5% in Water 100 300 ml @ 618 mls/hr IV .Q10M ONE with Amiodarone 150 mg Rx#:[id number] Insulin Regular 100 unit 4.697 In Sodium Chloride 0.9% 100 ml @ Per Protocol IV .Q0M [facility] Rx#:[id number] Insulin Regular 100 unit 48.058 27.876 0 In Sodium Chloride 0.9% 100 ml @ Per Protocol IV .Q0M [facility] Rx#:[id number] Magnesium Sulfate-D5w Pmx 100 1 gm In Dextrose/Water 1 100ml.bag @ 100 mls/hr IVPB Q1H [facility] Rx#: [id number] Norepinephrine 4 mg In 538.664 73.508 Sodium Chloride 0.9% 250 ml @ 0.05 MCG/KG/MIN 20. 955 mls/hr IV .Q12H8M [facility] Rx#:[id number] Propofol 1,000 mg In 20.232 Empty Bag 1 bag @ Titrate IV .Q0M [facility] Rx#: [id number] fentaNYL (PF) 1,000 mcg 13.87 In Sodium Chloride 0.9% 80 ml @ 0.5 MCG/KG/HR 5.7 mls/hr IV .[id number] Rx#:[id number] Blood Product 310 Rc Pheresis 2 As3 Unit 310 [id number] Output: Chest Tube Drainage 470 860 15 Right Lateral Chest 470 860 15 Urine 1775 700 30 Other: Voiding Method Indwelling Catheter Indwelling Catheter ABP, PAP, CO, CI - Last Documented Arterial Blood Pressure 103/38 - Constitutional Constitutional Comment(s): Sedated on propofol and fentanyl drip. General appearance: Present: cooperative, no acute distress, obese - Respiratory Details: Coarse rhonchi throughout his left lobe and diminished to his right lobe. Respirations are symmetrical and nonlabored with mechanical ventilator support. Current mechanical ventilator settings are as follows assist control 20, TV 450, FiO2 50%, PEEP of 5. Oxygen saturations 97% on current mechanical ventilator settings. Right pleural chest tubes in place to low continuous wall suction -20 cm H2O. Continuous air leak is present. Draining thin serosanguineous drainage. - Cardiovascular Details: Regular rhythm and rate. S1 and S2 present, negative for S3, gallop or murmur. Bedside telemetry showing normal sinus rhythm heart rate 91. No edema present. Knee-high sequential compression devices in place was bilateral lower extremities. Right radial arterial line in place and functioning. - Gastrointestinal Gastrointestinal Comment(s): Abdomen is soft, nontender and slightly distended. Hypoactive bowel sounds present FOR ABDOMINAL QUADRANTS. NO GUARDING OR RIGIDITY. NO ORGANOMEGALY APPRECIATED. OG TUBE IN PLACE TO LOW INTERMITTENT WALL SUCTION. - Genitourinary Genitourinary Comment(s): Mckeon catheter for accurate I&O. Draining clear yellow urine. 730 mL output in the last 24 hours. - Integumentary Integumentary Comment(s): Skin is warm and dry. No clubbing or cyanosis is present. Right thoracotomy incision with dressing in place clean, dry and intact. - Neurologic Neurologic Comment(s): Sedated on propofol and fentanyl drip. Neurologic: Present: CNII-XII intact - Musculoskeletal Musculoskeletal: Present: generalized weakness, strength equal bilaterally - Psychiatric Psychiatric Comment(s): Unable to assess due to being sedated on propofol and fentanyl drip. - Allied health notes Allied health notes reviewed: nursing - Labs CBC & Chem 7: 06/24/19 06:15 06/24/19 06:15 Labs: Abnormal Lab Results - Last 24 Hours (Table) 06/13/19 06/23/19 06/23/19 Range/Units 08:41 11:14 11:51 WBC (3.8-10.6) k/uL RBC (4.30-5.90) m/uL Hgb (13.0-17.5) gm/dL Hct (39.0-53.0) % MCHC (31.0-37.0) g/dL RDW (11.5-15.5) % Neutrophils # (1.3-7.7) k/uL Monocytes # (0-1.0) k/uL ABG pH (7.35-7.45) ABG pCO2 (35-45) mmHg ABG pO2 (83-108) mmHg ABG Total CO2 (19-24) mmol/L ABG O2 Saturation (94-97) % Chloride (98-107) mmol/L BUN (9-20) mg/dL Creatinine (0.66-1.25) mg/dL Glucose (74-99) mg/dL POC Glucose (mg/dL) 253 H 248 H (75-99) mg/dL Calcium (8.4-10.2) mg/dL Total Protein (6.3-8.2) g/dL Albumin (3.5-5.0) g/dL Crossmatch See Detail 06/23/19 06/23/19 06/23/19 Range/Units 11:59 12:58 13:00 WBC (3.8-10.6) k/uL RBC (4.30-5.90) m/uL Hgb (13.0-17.5) gm/dL Hct (39.0-53.0) % MCHC (31.0-37.0) g/dL RDW (11.5-15.5) % Neutrophils # (1.3-7.7) k/uL Monocytes # (0-1.0) k/uL ABG pH 7.28 L (7.35-7.45) ABG pCO2 48 H (35-45) mmHg ABG pO2 (83-108) mmHg ABG Total CO2 (19-24) mmol/L ABG O2 Saturation 97.5 H (94-97) % Chloride 109 H (98-107) mmol/L BUN 30 H (9-20) mg/dL Creatinine 1.70 H (0.66-1.25) mg/dL Glucose 206 H (74-99) mg/dL POC Glucose (mg/dL) 208 H (75-99) mg/dL Calcium 7.3 L (8.4-10.2) mg/dL Total Protein (6.3-8.2) g/dL Albumin (3.5-5.0) g/dL Crossmatch 06/23/19 06/23/19 06/23/19 Range/Units 13:00 14:20 15:10 WBC 29.5 H (3.8-10.6) k/uL RBC 3.48 L (4.30-5.90) m/uL Hgb 9.2 L (13.0-17.5) gm/dL Hct 29.6 L (39.0-53.0) % MCHC (31.0-37.0) g/dL RDW 16.5 H (11.5-15.5) % Neutrophils # 26.9 H (1.3-7.7) k/uL Monocytes # 1.1 H (0-1.0) k/uL ABG pH (7.35-7.45) ABG pCO2 (35-45) mmHg ABG pO2 (83-108) mmHg ABG Total CO2 (19-24) mmol/L ABG O2 Saturation (94-97) % Chloride (98-107) mmol/L BUN (9-20) mg/dL Creatinine (0.66-1.25) mg/dL Glucose (74-99) mg/dL POC Glucose (mg/dL) 183 H 186 H (75-99) mg/dL Calcium (8.4-10.2) mg/dL Total Protein (6.3-8.2) g/dL Albumin (3.5-5.0) g/dL Crossmatch 06/23/19 06/23/19 06/23/19 Range/Units 16:02 16:05 16:58 WBC (3.8-10.6) k/uL RBC (4.30-5.90) m/uL Hgb (13.0-17.5) gm/dL Hct (39.0-53.0) % MCHC (31.0-37.0) g/dL RDW (11.5-15.5) % Neutrophils # (1.3-7.7) k/uL Monocytes # (0-1.0) k/uL ABG pH 7.32 L (7.35-7.45) ABG pCO2 46 H (35-45) mmHg ABG pO2 (83-108) mmHg ABG Total CO2 25 H (19-24) mmol/L ABG O2 Saturation 97.1 H (94-97) % Chloride (98-107) mmol/L BUN (9-20) mg/dL Creatinine (0.66-1.25) mg/dL Glucose (74-99) mg/dL POC Glucose (mg/dL) 141 H 121 H (75-99) mg/dL Calcium (8.4-10.2) mg/dL Total Protein (6.3-8.2) g/dL Albumin (3.5-5.0) g/dL Crossmatch 06/23/19 06/23/19 06/23/19 Range/Units 18:16 20:08 21:08 WBC 28.0 H (3.8-10.6) k/uL RBC 3.43 L (4.30-5.90) m/uL Hgb 9.0 L (13.0-17.5) gm/dL Hct 29.3 L (39.0-53.0) % MCHC 30.8 L (31.0-37.0) g/dL RDW 16.6 H (11.5-15.5) % Neutrophils # 24.6 H (1.3-7.7) k/uL Monocytes # 1.2 H (0-1.0) k/uL ABG pH (7.35-7.45) ABG pCO2 (35-45) mmHg ABG pO2 77 L (83-108) mmHg ABG Total CO2 (19-24) mmol/L ABG O2 Saturation (94-97) % Chloride (98-107) mmol/L BUN (9-20) mg/dL Creatinine (0.66-1.25) mg/dL Glucose (74-99) mg/dL POC Glucose (mg/dL) 104 H (75-99) mg/dL Calcium (8.4-10.2) mg/dL Total Protein (6.3-8.2) g/dL Albumin (3.5-5.0) g/dL Crossmatch 06/23/19 06/23/19 06/23/19 Range/Units 21:08 21:17 22:07 WBC (3.8-10.6) k/uL RBC (4.30-5.90) m/uL Hgb (13.0-17.5) gm/dL Hct (39.0-53.0) % MCHC (31.0-37.0) g/dL RDW (11.5-15.5) % Neutrophils # (1.3-7.7) k/uL Monocytes # (0-1.0) k/uL ABG pH (7.35-7.45) ABG pCO2 (35-45) mmHg ABG pO2 (83-108) mmHg ABG Total CO2 (19-24) mmol/L ABG O2 Saturation (94-97) % Chloride 108 H (98-107) mmol/L BUN 30 H (9-20) mg/dL Creatinine 1.81 H (0.66-1.25) mg/dL Glucose 149 H (74-99) mg/dL POC Glucose (mg/dL) 155 H 171 H (75-99) mg/dL Calcium 7.4 L (8.4-10.2) mg/dL Total Protein (6.3-8.2) g/dL Albumin (3.5-5.0) g/dL Crossmatch 06/23/19 06/23/19 06/24/19 Range/Units 22:58 23:59 01:11 WBC (3.8-10.6) k/uL RBC (4.30-5.90) m/uL Hgb (13.0-17.5) gm/dL Hct (39.0-53.0) % MCHC (31.0-37.0) g/dL RDW (11.5-15.5) % Neutrophils # (1.3-7.7) k/uL Monocytes # (0-1.0) k/uL ABG pH (7.35-7.45) ABG pCO2 (35-45) mmHg ABG pO2 (83-108) mmHg ABG Total CO2 (19-24) mmol/L ABG O2 Saturation (94-97) % Chloride (98-107) mmol/L BUN (9-20) mg/dL Creatinine (0.66-1.25) mg/dL Glucose (74-99) mg/dL POC Glucose (mg/dL) 153 H 136 H 107 H (75-99) mg/dL Calcium (8.4-10.2) mg/dL Total Protein (6.3-8.2) g/dL Albumin (3.5-5.0) g/dL Crossmatch 06/24/19 06/24/19 06/24/19 Range/Units 02:08 03:01 04:02 WBC (3.8-10.6) k/uL RBC (4.30-5.90) m/uL Hgb (13.0-17.5) gm/dL Hct (39.0-53.0) % MCHC (31.0-37.0) g/dL RDW (11.5-15.5) % Neutrophils # (1.3-7.7) k/uL Monocytes # (0-1.0) k/uL ABG pH (7.35-7.45) ABG pCO2 (35-45) mmHg ABG pO2 (83-108) mmHg ABG Total CO2 (19-24) mmol/L ABG O2 Saturation (94-97) % Chloride (98-107) mmol/L BUN (9-20) mg/dL Creatinine (0.66-1.25) mg/dL Glucose (74-99) mg/dL POC Glucose (mg/dL) 103 H 124 H 156 H (75-99) mg/dL Calcium (8.4-10.2) mg/dL Total Protein (6.3-8.2) g/dL Albumin (3.5-5.0) g/dL Crossmatch 06/24/19 06/24/19 06/24/19 Range/Units 04:57 05:45 06:15 WBC (3.8-10.6) k/uL RBC (4.30-5.90) m/uL Hgb (13.0-17.5) gm/dL Hct (39.0-53.0) % MCHC (31.0-37.0) g/dL RDW (11.5-15.5) % Neutrophils # (1.3-7.7) k/uL Monocytes # (0-1.0) k/uL ABG pH (7.35-7.45) ABG pCO2 (35-45) mmHg ABG pO2 (83-108) mmHg ABG Total CO2 (19-24) mmol/L ABG O2 Saturation (94-97) % Chloride 109 H (98-107) mmol/L BUN 35 H (9-20) mg/dL Creatinine 2.07 H (0.66-1.25) mg/dL Glucose 73 L (74-99) mg/dL POC Glucose (mg/dL) 62 L 73 L (75-99) mg/dL Calcium 7.4 L (8.4-10.2) mg/dL Total Protein 5.7 L (6.3-8.2) g/dL Albumin 2.4 L (3.5-5.0) g/dL Crossmatch 06/24/19 06/24/19 06/24/19 Range/Units 06:15 08:03 08:27 WBC 28.2 H (3.8-10.6) k/uL RBC 3.17 L (4.30-5.90) m/uL Hgb 8.5 L (13.0-17.5) gm/dL Hct 27.3 L (39.0-53.0) % MCHC (31.0-37.0) g/dL RDW 16.1 H (11.5-15.5) % Neutrophils # 23.5 H (1.3-7.7) k/uL Monocytes # 1.4 H (0-1.0) k/uL ABG pH 7.27 L (7.35-7.45) ABG pCO2 47 H (35-45) mmHg ABG pO2 (83-108) mmHg ABG Total CO2 (19-24) mmol/L ABG O2 Saturation 98.2 H (94-97) % Chloride (98-107) mmol/L BUN (9-20) mg/dL Creatinine (0.66-1.25) mg/dL Glucose (74-99) mg/dL POC Glucose (mg/dL) 122 H (75-99) mg/dL Calcium (8.4-10.2) mg/dL Total Protein (6.3-8.2) g/dL Albumin (3.5-5.0) g/dL Crossmatch - Imaging and Cardiology Chest x-ray: report reviewed, image reviewed Assessment and Plan Assessment: 1. 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 History of [place] mediastinoscopy with lymph node biopsy 3. COPD with preoperative FEV1 82% of predicted 4. Remote history of tobacco dependence 5. Obstructive sleep apnea without home CPAP use 6. Home oxygen use as needed 7. Coronary artery disease with previous myocardial infarction and prior sten ting 8. Hypertension, currently postoperative hypertension on IV pressors 9. Insulin dependent diabetes 10. Chronic kidney disease 11. Recent laminectomy with subsequent sepsis in March 2019 12. GERD 13. Postoperative pain, expected to continue thoracotomy incision 14. Postoperative paroxysmal atrial fibrillation, unexpected 15. Postoperative acute blood loss anemia, unexpected 16. Postoperative acute respiratory failure requiring reintubation with mechanical ventilator support, unexpected 17. Postoperative fever, with leukocytosis unknown source Plan: 1. Continue right pleural chest tubes to continuous wall suction -20 cm H2O. Continue to monitor for resolution of air leak. Surgical pathology remains pending. 2. Continue bronchodilators, inhaled steroids per pulmonology management. 3. Mechanical ventilator setting management per pulmonary critical care medicine. 4. Continue norepinephrine, wean norepinephrine as tolerated. 5. Will monitor daily labs and chest x-rays. Electrolyte replacement as necessary. Give 1 g calcium gluconate IV piggyback 1 now. 6. GI/DVT prophylaxis. 7. Give Lasix 40 mg IVP 1 now. 8. Continue Lopressor. Continue amiodarone drip for atrial fibrillation prophylaxis. Digoxin level was 1.2 this morning. 9. Pain control with current medication regimen. Avoid Toradol secondary to kidney function. Decrease fentanyl drip to 0.25 mics per minute. 10. Continue Mckeon for accurate intake and output. 11. Continue propofol drip while on mechanical ventilation, managed by pulmonary critical care medicine. 12. Give one amp of sodium bicarbonate now. 13. Increase tidal volume to 550, draw arterial blood gases every 4 hours. 14. Medical management and other comorbidities per primary care service. 15. Discontinue Neurontin and Curran. 16. More recommendations to follow based on patient's clinical course. Time with Patient: Greater than 30
--- NOTE | 2019-06-24 09:55 | XR ---
EXAMINATION TYPE: XR chest 1V portable DATE OF EXAM: 06/24/2019 COMPARISON: 06/24/2019 HISTORY: Right-sided central line placement TECHNIQUE: Single frontal view of the chest is obtained. FINDINGS: Right-sided central line overlies right atrium and no sizable pneumothorax. Right-sided ch est tube with bilateral areas of consolidation and pleural effusion noted. Heart is enlarged. ET and NG tubes stable. Subcutaneous emphysema along the right chest stable. IMPRESSION: 1. No pneumothorax. Right-sided central line is seen with the tip overlying the right atrium. 2. Diffuse pleural-parenchymal changes could been the basis of bilateral pneumonia pleural effusion. Underlying CHF not excluded.
[2019-06-24 10:03] LABS: Glucose,Whole Blood 152 mg/dL (75-99)
[2019-06-24 10:37] LABS: Glucose,Whole Blood 151 mg/dL (75-99)
--- NOTE | 2019-06-24 10:39 | PN ---
PROGRESS NOTE OPERATIVE REPORT: Placement of a right radial arterial line. PREOPERATIVE DIAGNOSIS: Acute respiratory failure and hypotension. POSTOPERATIVE DIAGNOSIS: Acute respiratory failure and hypotension. ANESTHESIA: Used none deployed. PROCEDURE DESCRIPTION: The left wrist was placed on the table, and was prepared in a sterile fashion and drapes were applied. The left radial artery was palpated, and easily cannulated, and a guidewire was placed. The line was secured using 3.0 silk sutures. There was good blood flow, good waveform, and no evidence of any immediate complications. MMODL / IJN: [id number] /
--- NOTE | 2019-06-24 10:39 | PCN ---
PROCEDURE NOTE OPERATIVE REPORT: Placement of the right internal jugular central line. PREOPERATIVE DIAGNOSIS: Acute respiratory failure, status post thoracotomy/bilobectomy. POSTOPERATIVE DIAGNOSIS: Acute respiratory failure, status post thoracotomy/bilobectomy. ANESTHESIA: 2 mL of 1% lidocaine. PROCEDURE DESCRIPTION: The patient was placed in a Trendelenburg position, the area of the right cervical region was prepared in a sterile fashion and drapes were applied. The area posterior to the posterior belly of the sternocleidomastoid muscle was locally anesthetized. Then, the right IJ vein was easily cannulated, and a guidewire was placed. The area around the guidewire was dilated using a dilator. Then a triple-lumen catheter was inserted over the guidewire, and the guidewire was removed. Good blood flow was noted in the 3 different ports of the triple-lumen catheter. The line was secured using 3.0 silk sutures. A chest x-ray showed no evidence of any complications. MMODL / IJN: [id number] /
[2019-06-24 11:03] LABS: Glucose,Whole Blood 149 mg/dL (75-99)
[2019-06-24 11:49] LABS: Glucose,Whole Blood 158 mg/dL (75-99)
[2019-06-24 12:02] LABS: ABG HCO3 21 mmol/L (21-25); ABG PCO2 49 mmHg (35-45); ABG PH 7.25 (7.35-7.45); ABG PO2 103 mmHg (83-108); ABG TCO2 23 mmol/L (19-24); Allen Test Performed? Yes
--- NOTE | 2019-06-24 12:25 | P.PN ---
Subjective Progress Note Date: 06/24/19 Principal diagnosis: Bronchogenic carcinoma, status post bilobectomy, postoperative day #3 This is an 83-year-old white male with history of COPD, right lung cancer, stage IIB. This was diagnosed via flexible bronchoscopy and endobronchial biopsies and lavage of the right middle lobe back on 02/07/2019. His PET scan was suspicious for mediastinal involvement, however the patient underwent bronchoscopy, mediastinoscopy with lymph node biopsy by Dr. Finley on 03/22/2019. His previous PET scan showed uptake in for R and 5 all lymph nodes hence lymph node staging of the 5R and 5 all was done for confirmation of metastatic disease. Pathology was negative on these notes. Hence the patient was referred back to see Dr. Finley, and he underwent right VATS thoracoscopy, right thoracotomy, right bilobectomy , mediastinal lymph node dissection, and postoperatively the patient was extubated, transferred to the intensive care unit, and I was asked to see him on consultation. Patient had about a liter of estimated blood loss during the surgery, his blood pressure is marginal in the ICU, it is 100/50, his heart rate is 80, patient is complaining of postsurgical pain. Mostly on the right side of the chest. . Patient is Patient was reevaluated today, his postoperative day #1,right VATS thoracoscopy, right thoracotomy, right bi-lobectomy with mediastinal lymph node dissection (right upper and right middle lobe) the main concern today seems to be related to severe postsurgical pain, requiring narcotics and he has a BLOOD TYPER pump, patient is tachycardic, and he has hypotension did not respond to 2 L of fluid boluses, and now he is on norepinephrine at 0.11 mcg/kg/m. I discontinued his dopamine mostly because of tachycardia noted. Echocardiogram showed no evidence of pericardial tamponade. Chest x-ray showed expansion of the right lung, he continues to have some continuous air leak, but no evidence of pneumothorax. ABG earlier today showed a pO2 of 85 pCO2 of 40 pH of 7.29. Patient is on high flow nasal cannula at 12 L/m. Reevaluated today on 06/23/2019, patient remains in the intensive care unit, his postoperative day #2. Patient still requires significant amount of pain medication to control his pain, he was placed on BiPAP last night with IPAP of 12 and EPAP of 6, FiO2 is 50%, patient developed postoperative hypotension, and he is presently on norepinephrine at 0.24 mcg/kg/m. He developed atrial fibrillation with RVR, and now he is on amiodarone. He developed postoperative anemia requiring blood transfusion. He is receiving a unit of packed RBCs this morning. His hemoglobin earlier today was 7.9. Patient was symptomatic with low hemoglobin. Transfusion was ordered by thoracic surgery. Patient remains on morphine BLOOD TYPER, however will try to switch him to fentanyl. Earlier this morning had atrial fibrillation with RVR rate as high as 175. As soon as he went into A. fib with RVR, patient was extremely symptomatic and extremely short of breath. ABG on BiPAP showed a pO2 of 95 pCO2 of 48 pH of 7.28. WBC count is up to 24 hemoglobin is 7.9. Basic metabolic profile is normal, renal profile remains marginal with creatinine of 1.60. Chest x-ray showed no evidence of right-sided pneumothorax, right-sided chest tube remains in place, right sided volume loss is noted. Minimal bibasilar atelectasis is noted Patient was reevaluated today on 06/24/2019, he is postoperative day #3, VATS thoracoscopy, right thoracotomy, right bilobectomy with mediastinal lymph node dissection. Right upper and right middle lobe. Patient had a slight deterioration in his clinical status yesterday, he was receiving pain meds, and he was on BiPAP. I was notified by the nurse taking care of the patient that the patient was less responsive while on pain medication, and there was a concern about the patient protecting his airways. His ABG was acceptable, but there was a concern about protection of his airways, and his overall mental status on pain medication. I recommended immediate intubation and ventilatory support. Patient is now on mechanical ventilation, his ventilator settings are assist control rate of 20 tidal volume of 550 FiO2 is 50% bicarb is down to 45% and PEEP is at 5. Earlier ABG before the changes in the tidal volume showed a pO2 of 103 pCO2 of 47 pH of 7.27. Patient is now on amiodarone drip norepinephrine at 0.1 mcg/kg/m, he is also on propofol, and on fentanyl drip at 0.5 mcg/kg/h. He had a T-max of 103.2, hence the patient was started on antibiotics in the form of Levaquin and vancomycin. Patient converted to normal sinus rhythm, he remains on amiodarone drip, and his norepinephrine drip is being titrated. Patient had no central venous access, hence I placed a right IJ central line, I also placed a left radial arterial line since his old arterial line was positional, and no adequate waveform was noted. Chest x-ray today showed no evidence of pneumothorax, diffuse pleuroparenchymal changes noted, possibility of underlying pneumonia is not entirely ruled out, also the possibility of some component of diastolic congestive heart failure is not entirely ruled out based on the chest x-ray findings. Patient has been receiving antibiotics, and has been receiving diuretics. WBC count today is up to 28.2 hemoglobin is 8.5. Basic metabolic profile is normal BUN is 35 creatinine is up to 2.07 from 1.60 on admission. Patient may have developed an acute kidney injury, that is acute on chronic kidney injury related to hypotension Objective - Vital Signs Vital signs: Vital Signs Temp 98.7 F 06/24/19 05:00 Pulse 90 06/24/19 12:00 Resp 22 06/24/19 12:00 BP 100/46 06/24/19 12:00 Pulse Ox 93 L 06/24/19 11:45 Intake & Output 06/23/19 06/24/19 06/24/19 18:59 06:59 18:59 Intake Total 1830.419 714.384 660.196 Output Total 2245 1560 340 Balance -414.581 -845.616 320.196 Weight 112.4 kg Intake: IV 429 363 298 Calcium Gluconate 1 gm In 100 Sodium Chloride 0.9% 100 ml @ 100 mls/hr IVPB ONCE ONE Rx#:[id number] Pressure bags 39 33 18 Sodium Chloride 0.9% 1, 390 330 180 000 ml @ 30 mls/hr IV . Q24H [facility] Rx#:[id number] Intake, IV Titration 1091.419 351.384 362.196 Amount Amiodarone 300 mg In 250 150.417 Dextrose 5% in Water 250 ml @ 0.5 MG/MIN 25 mls/hr IV .Q10H [facility] Rx#: [id number] Dextrose 5% in Water 100 100 ml @ 618 mls/hr IV .Q10M ONE with Amiodarone 150 mg Rx#:[id number] Dextrose 5% in Water 100 300 ml @ 618 mls/hr IV .Q10M ONE with Amiodarone 150 mg Rx#:[id number] Insulin Regular 100 unit 4.697 In Sodium Chloride 0.9% 100 ml @ Per Protocol IV .Q0M [facility] Rx#:[id number] Insulin Regular 100 unit 48.058 27.876 4.040 In Sodium Chloride 0.9% 100 ml @ Per Protocol IV .Q0M [facility] Rx#:[id number] Magnesium Sulfate-D5w Pmx 100 1 gm In Dextrose/Water 1 100ml.bag @ 100 mls/hr IVPB Q1H [facility] Rx#: [id number] Norepinephrine 4 mg In 538.664 73.508 145.987 Sodium Chloride 0.9% 250 ml @ 0.05 MCG/KG/MIN 20. 955 mls/hr IV .Q12H8M [facility] Rx#:[id number] Propofol 1,000 mg In 47.882 Empty Bag 1 bag @ Titrate IV .Q0M [facility] Rx#: [id number] fentaNYL (PF) 1,000 mcg 13.87 In Sodium Chloride 0.9% 80 ml @ 0.5 MCG/KG/HR 5.7 mls/hr IV .[id number] [facility] Rx#:[id number] Blood Product 310 Rc Pheresis 2 As3 Unit 310 [id number] Output: Chest Tube Drainage 470 860 15 Right Lateral Chest 470 860 15 Drainage 5 Right Chest 5 Urine 1775 700 320 Other: Voiding Method Indwelling Catheter Indwelling Catheter Indwelling Catheter ABP, PAP, CO, CI - Last Documented Arterial Blood Pressure 75/32 - Exam Physical Exam: Revealed 83-year-old white on mechanical ventilation, on propofol, sedated, in no distress. Head: Atraumatic normocephalic. Endotracheal tube and orogastric tube are intact HEENT:[Neck is supple.] [No neck masses.] [No thyromegaly.] [No JVD.] PERRLA, EOMI, no icterus. Chest: [Right-sided chest tube was noted. Continuous air leak was noted. Minimal bloody drainage noted from the chest tube. Cardiac Exam: [Normal S1 and S2, no S3 gallop, no murmur.] Abdomen: [Soft, nontender, no megaly, no rebound, no guarding, normal bowel sounds.] Extremities: [No clubbing, 2+ bipedal bipedal edema, no cyanosis.] Neurological Exam: Sedated, on propofol, arousable to deep painful stimuli. Psychiatric: Cannot be assessed. Patient is sedated on propofol. Skin: No rashes. - Labs CBC & Chem 7: 06/24/19 06:15 06/24/19 06:15 Labs: Abnormal Lab Results - Last 24 Hours (Table) 06/23/19 06/23/19 06/23/19 Range/Units 12:58 13:00 13:00 WBC 29.5 H (3.8-10.6) k/uL RBC 3.48 L (4.30-5.90) m/uL Hgb 9.2 L (13.0-17.5) gm/dL Hct 29.6 L (39.0-53.0) % MCHC (31.0-37.0) g/dL RDW 16.5 H (11.5-15.5) % Neutrophils # 26.9 H (1.3-7.7) k/uL Monocytes # 1.1 H (0-1.0) k/uL ABG pH (7.35-7.45) ABG pCO2 (35-45) mmHg ABG pO2 (83-108) mmHg ABG Total CO2 (19-24) mmol/L ABG O2 Saturation (94-97) % Chloride 109 H (98-107) mmol/L BUN 30 H (9-20) mg/dL Creatinine 1.70 H (0.66-1.25) mg/dL Glucose 206 H (74-99) mg/dL POC Glucose (mg/dL) 208 H (75-99) mg/dL Calcium 7.3 L (8.4-10.2) mg/dL Total Protein (6.3-8.2) g/dL Albumin (3.5-5.0) g/dL 06/23/19 06/23/19 06/23/19 Range/Units 14:20 15:10 16:02 WBC (3.8-10.6) k/uL RBC (4.30-5.90) m/uL Hgb (13.0-17.5) gm/dL Hct (39.0-53.0) % MCHC (31.0-37.0) g/dL RDW (11.5-15.5) % Neutrophils # (1.3-7.7) k/uL Monocytes # (0-1.0) k/uL ABG pH 7.32 L (7.35-7.45) ABG pCO2 46 H (35-45) mmHg ABG pO2 (83-108) mmHg ABG Total CO2 25 H (19-24) mmol/L ABG O2 Saturation 97.1 H (94-97) % Chloride (98-107) mmol/L BUN (9-20) mg/dL Creatinine (0.66-1.25) mg/dL Glucose (74-99) mg/dL POC Glucose (mg/dL) 183 H 186 H (75-99) mg/dL Calcium (8.4-10.2) mg/dL Total Protein (6.3-8.2) g/dL Albumin (3.5-5.0) g/dL 06/23/19 06/23/19 06/23/19 Range/Units 16:05 16:58 18:16 WBC (3.8-10.6) k/uL RBC (4.30-5.90) m/uL Hgb (13.0-17.5) gm/dL Hct (39.0-53.0) % MCHC (31.0-37.0) g/dL RDW (11.5-15.5) % Neutrophils # (1.3-7.7) k/uL Monocytes # (0-1.0) k/uL ABG pH (7.35-7.45) ABG pCO2 (35-45) mmHg ABG pO2 (83-108) mmHg ABG Total CO2 (19-24) mmol/L ABG O2 Saturation (94-97) % Chloride (98-107) mmol/L BUN (9-20) mg/dL Creatinine (0.66-1.25) mg/dL Glucose (74-99) mg/dL POC Glucose (mg/dL) 141 H 121 H 104 H (75-99) mg/dL Calcium (8.4-10.2) mg/dL Total Protein (6.3-8.2) g/dL Albumin (3.5-5.0) g/dL 06/23/19 06/23/19 06/23/19 Range/Units 20:08 21:08 21:08 WBC 28.0 H (3.8-10.6) k/uL RBC 3.43 L (4.30-5.90) m/uL Hgb 9.0 L (13.0-17.5) gm/dL Hct 29.3 L (39.0-53.0) % MCHC 30.8 L (31.0-37.0) g/dL RDW 16.6 H (11.5-15.5) % Neutrophils # 24.6 H (1.3-7.7) k/uL Monocytes # 1.2 H (0-1.0) k/uL ABG pH (7.35-7.45) ABG pCO2 (35-45) mmHg ABG pO2 77 L (83-108) mmHg ABG Total CO2 (19-24) mmol/L ABG O2 Saturation (94-97) % Chloride 108 H (98-107) mmol/L BUN 30 H (9-20) mg/dL Creatinine 1.81 H (0.66-1.25) mg/dL Glucose 149 H (74-99) mg/dL POC Glucose (mg/dL) (75-99) mg/dL Calcium 7.4 L (8.4-10.2) mg/dL Total Protein (6.3-8.2) g/dL Albumin (3.5-5.0) g/dL 06/23/19 06/23/19 06/23/19 Range/Units 21:17 22:07 22:58 WBC (3.8-10.6) k/uL RBC (4.30-5.90) m/uL Hgb (13.0-17.5) gm/dL Hct (39.0-53.0) % MCHC (31.0-37.0) g/dL RDW (11.5-15.5) % Neutrophils # (1.3-7.7) k/uL Monocytes # (0-1.0) k/uL ABG pH (7.35-7.45) ABG pCO2 (35-45) mmHg ABG pO2 (83-108) mmHg ABG Total CO2 (19-24) mmol/L ABG O2 Saturation (94-97) % Chloride (98-107) mmol/L BUN (9-20) mg/dL Creatinine (0.66-1.25) mg/dL Glucose (74-99) mg/dL POC Glucose (mg/dL) 155 H 171 H 153 H (75-99) mg/dL Calcium (8.4-10.2) mg/dL Total Protein (6.3-8.2) g/dL Albumin (3.5-5.0) g/dL 06/23/19 06/24/19 06/24/19 Range/Units 23:59 01:11 02:08 WBC (3.8-10.6) k/uL RBC (4.30-5.90) m/uL Hgb (13.0-17.5) gm/dL Hct (39.0-53.0) % MCHC (31.0-37.0) g/dL RDW (11.5-15.5) % Neutrophils # (1.3-7.7) k/uL Monocytes # (0-1.0) k/uL ABG pH (7.35-7.45) ABG pCO2 (35-45) mmHg ABG pO2 (83-108) mmHg ABG Total CO2 (19-24) mmol/L ABG O2 Saturation (94-97) % Chloride (98-107) mmol/L BUN (9-20) mg/dL Creatinine (0.66-1.25) mg/dL Glucose (74-99) mg/dL POC Glucose (mg/dL) 136 H 107 H 103 H (75-99) mg/dL Calcium (8.4-10.2) mg/dL Total Protein (6.3-8.2) g/dL Albumin (3.5-5.0) g/dL 06/24/19 06/24/19 06/24/19 Range/Units 03:01 04:02 04:57 WBC (3.8-10.6) k/uL RBC (4.30-5.90) m/uL Hgb (13.0-17.5) gm/dL Hct (39.0-53.0) % MCHC (31.0-37.0) g/dL RDW (11.5-15.5) % Neutrophils # (1.3-7.7) k/uL Monocytes # (0-1.0) k/uL ABG pH (7.35-7.45) ABG pCO2 (35-45) mmHg ABG pO2 (83-108) mmHg ABG Total CO2 (19-24) mmol/L ABG O2 Saturation (94-97) % Chloride (98-107) mmol/L BUN (9-20) mg/dL Creatinine (0.66-1.25) mg/dL Glucose (74-99) mg/dL POC Glucose (mg/dL) 124 H 156 H 62 L (75-99) mg/dL Calcium (8.4-10.2) mg/dL Total Protein (6.3-8.2) g/dL Albumin (3.5-5.0) g/dL 06/24/19 06/24/19 06/24/19 Range/Units 05:45 06:15 06:15 WBC 28.2 H (3.8-10.6) k/uL RBC 3.17 L (4.30-5.90) m/uL Hgb 8.5 L (13.0-17.5) gm/dL Hct 27.3 L (39.0-53.0) % MCHC (31.0-37.0) g/dL RDW 16.1 H (11.5-15.5) % Neutrophils # 23.5 H (1.3-7.7) k/uL Monocytes # 1.4 H (0-1.0) k/uL ABG pH (7.35-7.45) ABG pCO2 (35-45) mmHg ABG pO2 (83-108) mmHg ABG Total CO2 (19-24) mmol/L ABG O2 Saturation (94-97) % Chloride 109 H (98-107) mmol/L BUN 35 H (9-20) mg/dL Creatinine 2.07 H (0.66-1.25) mg/dL Glucose 73 L (74-99) mg/dL POC Glucose (mg/dL) 73 L (75-99) mg/dL Calcium 7.4 L (8.4-10.2) mg/dL Total Protein 5.7 L (6.3-8.2) g/dL Albumin 2.4 L (3.5-5.0) g/dL 06/24/19 06/24/19 06/24/19 Range/Units 08:03 08:27 09:27 WBC (3.8-10.6) k/uL RBC (4.30-5.90) m/uL Hgb (13.0-17.5) gm/dL Hct (39.0-53.0) % MCHC (31.0-37.0) g/dL RDW (11.5-15.5) % Neutrophils # (1.3-7.7) k/uL Monocytes # (0-1.0) k/uL ABG pH 7.27 L (7.35-7.45) ABG pCO2 47 H (35-45) mmHg ABG pO2 (83-108) mmHg ABG Total CO2 (19-24) mmol/L ABG O2 Saturation 98.2 H (94-97) % Chloride (98-107) mmol/L BUN (9-20) mg/dL Creatinine (0.66-1.25) mg/dL Glucose (74-99) mg/dL POC Glucose (mg/dL) 122 H 139 H (75-99) mg/dL Calcium (8.4-10.2) mg/dL Total Protein (6.3-8.2) g/dL Albumin (3.5-5.0) g/dL 06/24/19 06/24/19 06/24/19 Range/Units 10:01 10:35 11:02 WBC (3.8-10.6) k/uL RBC (4.30-5.90) m/uL Hgb (13.0-17.5) gm/dL Hct (39.0-53.0) % MCHC (31.0-37.0) g/dL RDW (11.5-15.5) % Neutrophils # (1.3-7.7) k/uL Monocytes # (0-1.0) k/uL ABG pH (7.35-7.45) ABG pCO2 (35-45) mmHg ABG pO2 (83-108) mmHg ABG Total CO2 (19-24) mmol/L ABG O2 Saturation (94-97) % Chloride (98-107) mmol/L BUN (9-20) mg/dL Creatinine (0.66-1.25) mg/dL Glucose (74-99) mg/dL POC Glucose (mg/dL) 152 H 151 H 149 H (75-99) mg/dL Calcium (8.4-10.2) mg/dL Total Protein (6.3-8.2) g/dL Albumin (3.5-5.0) g/dL 06/24/19 06/24/19 Range/Units 11:47 11:56 WBC (3.8-10.6) k/uL RBC (4.30-5.90) m/uL Hgb (13.0-17.5) gm/dL Hct (39.0-53.0) % MCHC (31.0-37.0) g/dL RDW (11.5-15.5) % Neutrophils # (1.3-7.7) k/uL Monocytes # (0-1.0) k/uL ABG pH 7.25 L (7.35-7.45) ABG pCO2 49 H (35-45) mmHg ABG pO2 (83-108) mmHg ABG Total CO2 (19-24) mmol/L ABG O2 Saturation 98.0 H (94-97) % Chloride (98-107) mmol/L BUN (9-20) mg/dL Creatinine (0.66-1.25) mg/dL Glucose (74-99) mg/dL POC Glucose (mg/dL) 158 H (75-99) mg/dL Calcium (8.4-10.2) mg/dL Total Protein (6.3-8.2) g/dL Albumin (3.5-5.0) g/dL Microbiology - Last 24 Hours (Table) 06/23/19 22:09 Sputum Culture - Preliminary Sputum 06/24/19 01:22 Urine Culture - Preliminary Urine,Catheterized Assessment and Plan Assessment: Impression: Postoperative acute hypoxic respiratory failure, unexpected, multifactorial mostly secondary to narcotics for pain control, possible nosocomial pneumonia a nd suspected acute diastolic congestive heart failure. Status post right VATS thoracoscopy, right thoracotomy, right bilobectomy, mediastinal lymph node dissection. 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 Patient required significant amount of pain medications, and there was a concern about protection of airways while on BiPAP. Failed BiPAP treatment. Postoperative atrial fibrillation with RVR, expected. He remains on amiodarone drip. Postoperative anemia, expected. This is mostly secondary to blood loss. Postoperative subcu emphysema expected Postoperative hypotension, unexpected, however it is mostly related to pain medications, hypovolemia, possible sepsis. Especially with significant leukocytosis, and abnormal chest x-ray as noted today. Chronic obstructive pulmonary disease, mild preoperative FEV1 is 82% FEV/FVC is 73%. History of laminectomy and decompression L3/L4 on 04/14/2019. History of mediastinoscopy with lymph node biopsy on 03/22/2019 History of multiple comorbidities including type 2 diabetes, and diabetic neuropathy. benign essential hypertension, coronary artery disease and previous VA, obstructive sleep apnea syndrome, history of GERD. Recommendation: Continue ventilatory support. Ventilator settings were addressed accordingly and adjusted based on ABG. Continue hemodynamic support, patient is now on norepinephrine. Continue amiodarone, patient is presently on amiodarone drip for atrial fibrillation with RVR. Dietitian to see for nutritional support/enteral feeding. Continue antibiotics in the form of vancomycin and Zosyn, discontinue Levaquin Continue postoperative care, Continue bronchodilators. Continue chest tube to suction Continue pain control, presently on fentanyl at 0.5 mcg/kg/h. Insulin drip as per protocol. Continue close control of his sugars Monitor daily chest x-rays. GI and DVT prophylaxis. Patient's condition is definitely quite critical at this point, will update his family at his condition. Critical care time is 40 minutes not including the time spent on procedures Time with Patient: Greater than 30
[2019-06-24] MEDS: PIPERACILLIN-TAZOBACTAM 3.375 GM in SODIUM CHLORIDE 0.9% 100 ML IVPB SCH ×2 (13:51→22:18)
[2019-06-24 14:00] LABS: Glucose,Whole Blood 150 mg/dL (75-99)
[2019-06-24 16:01] LABS: Glucose,Whole Blood 154 mg/dL (75-99)
[2019-06-24] MEDS: INSULIN REGULAR 100 UNIT in SODIUM CHLORIDE 0.9% 100 ML IV SCH (16:02)
[2019-06-24 16:04] LABS: ABG Base Excess -2.6 mmol/L; ABG HCO3 24 mmol/L (21-25); ABG Oxygen Saturation 98.8 % (94-97); ABG PCO2 46 mmHg (35-45); ABG PH 7.32 (7.35-7.45); ABG PO2 116 mmHg (83-108); ABG TCO2 25 mmol/L (19-24); Allen Test Performed? Yes
[2019-06-24] MEDS: CHOLECALCIFEROL 1,000 UNIT TAB PO SCH (16:14)
[2019-06-24 18:27] LABS: Glucose,Whole Blood 136 mg/dL (75-99)
[2019-06-24 19:56] LABS: Glucose,Whole Blood 132 mg/dL (75-99)
[2019-06-24 20:08] LABS: ABG Base Excess -3.8 mmol/L; ABG HCO3 22 mmol/L (21-25); ABG Oxygen Saturation 97.6 % (94-97); ABG PCO2 45 mmHg (35-45); ABG PH 7.31 (7.35-7.45); ABG PO2 100 mmHg (83-108); ABG TCO2 24 mmol/L (19-24)
[2019-06-24 20:11] LABS: Allen Test Performed? no
--- NOTE | 2019-06-24 20:59 | PN ---
PROGRESS NOTE I am covering for Dr. Parra. DATE OF SERVICE: 06/24/2019. This 83-year-old gentleman with a past medical history of multiple medical problems was admitted after right lung VATS thoracoscopy, thoracotomy and as well as bilobectomy. The patient initially had respiratory failure. Patient mechanically ventilated and extubated. Subsequently, today the patient was found to be less responsive and because of concerns of protecting the airway Dr. Cortés intubated the patient again. Currently the patient mechanically ventilated and sedated and being closely monitored at this time. The assist-control, tidal volume 550, FiO2 45%, FiO2 PEEP. The chest x- ray showed some possibly atelectasis. Patient being closely monitored in ICU. PAST MEDICAL HISTORY: Reviewed. REVIEW OF SYMPTOMS: Review of system could not be taken the patient is mechanically ventilated and sedated. CURRENT MEDICATIONS: Reviewed and include: 1. DuoNeb q.i.d. and p.r.n. 2. Amiodarone. 3. Aspirin. 4. Lipitor. 5. Dulcolax. 6. Pulmicort. 7. Peridex. 9. Fentanyl. 10.Insulin. 11.Narcan. 12.Zofran. 13.Protonix. 14.Zosyn. 15.Senokot-S. 16.Flomax. 17.Vancomycin. PHYSICAL EXAM: Patient is mechanically ventilated and sedated. The pulse is 74. Blood pressure 105/52. Respiration 20. Temperature normal. Pulse ox 100 percent on mechanical ventilation. Vent settings are noted as above. HEENT conjunctivae normal. Oral mucosa moist. NECK is no jugular venous distention. No carotid bruit. No lymph node enlargement. Cardiovascular systems: S1, S2 muffled. Respiration: Breath sounds diminished in the bases. A few scattered rhonchi and crackles. ABDOMEN: Soft, obese, nontender. LEGS are no edema. No swelling. Nervous system: Sedated. LABS: ABGs noted. PH of 7.32. Accu-Cheks 154, 150. WBC 28.9. Hemoglobin is 8.5, creatinine is 2.07. ASSESSMENT: 1. Status post right VATS thoracoscopy, right thoracotomy and bilobectomy with mediastinal lymph node dissection, right upper lobe and middle lobe for possible bronchogenic malignancy. 2. Acute hypoxic respiratory failure. Postoperative as expected. 3. Atrial fibrillation postoperative as expected. 4. Postoperative pain as expected. 5. Increased WBC. 6. Atrial fibrillation, paroxysmal. 7. Increased WBC. 8. Anemia. 9. Increased creatinine with chronic kidney disease stage III. 10.Diabetes mellitus type 2. 11.Hypomagnesemia. 12.Gastroesophageal reflux disease. 13.Hypertension. 14.History of myocardial infarction. 15.History of change in mental status, metabolic encephalopathy. 16.History of sleep apnea. 17.History of coronary artery disease/stent. 18.Remote history of nicotine dependence. 19.Obesity with body mass index of 36.1. 20.Increased WBC possibly reactive. 21.FULL CODE. RECOMMENDATIONS AND DISCUSSION: Recommend to continue current medications, management and symptomatic treatment. Continue mechanical ventilation. Continue the bronchodilators. Continue with the rest of medications. Continue to monitor the creatinine and blood sugars closely. The white count is also elevated. Otherwise, the patient has some minimal low-grade fever. We will continue to monitor. The patient started on broad spectrum IV antibiotics by Dr. Cortés. Closely monitor. Further recommendations to follow. MMODL / IJN: [id number] / CHU
[2019-06-24 22:04] LABS: Glucose,Whole Blood 170 mg/dL (75-99)
[2019-06-24] MEDS: TAMSULOSIN 0.4 MG CAP.ER.24H PO SCH (22:16)
[2019-06-24] MEDS: SENNOSIDES-DOCUSATE SODIUM 1 EACH TAB PO SCH (22:16)
[2019-06-24 23:54] LABS: Glucose,Whole Blood 199 mg/dL (75-99)
[2019-06-25 00:09] LABS: ABG Base Excess -5.5 mmol/L; ABG HCO3 21 mmol/L (21-25); ABG Oxygen Saturation 97.9 % (94-97); ABG PCO2 46 mmHg (35-45); ABG PH 7.27 (7.35-7.45); ABG PO2 102 mmHg (83-108); ABG TCO2 23 mmol/L (19-24)
[2019-06-25 00:11] LABS: Allen Test Performed? no
[2019-06-25] MEDS: HEPARIN SODIUM,PORCINE 5,000 UNIT/ML 1 ML VIAL SQ SCH ×4 (01:37→23:33)
[2019-06-25] MEDS: SODIUM CHLORIDE 0.9% 1,000 ML IV SCH ×2 (01:38→22:11)
[2019-06-25 01:53] LABS: Glucose,Whole Blood 161 mg/dL (75-99)
[2019-06-25 03:56] LABS: ABG HCO3 23 mmol/L (21-25); ABG Oxygen Saturation 97.5 % (94-97); ABG PCO2 46 mmHg (35-45); ABG PH 7.31 (7.35-7.45); ABG PO2 94 mmHg (83-108); ABG TCO2 25 mmol/L (19-24); Allen Test Performed? Yes
[2019-06-25 04:00] LABS: Glucose,Whole Blood 119 mg/dL (75-99)
[2019-06-25] MEDS ORDERED: VANCOMYCIN 1,500 MG in SODIUM CHLORIDE 0.9% 250 ML IVPB SCH (04:00)
[2019-06-25 05:53] LABS: Glucose,Whole Blood 89 mg/dL (75-99)
[2019-06-25 06:52] LABS: Glucose,Whole Blood 103 mg/dL (75-99)
[2019-06-25] MEDS: PROPOFOL 1,000 MG in EMPTY BAG 1 BAG IV SCH ×4 (06:57→19:51)
[2019-06-25] MEDS: VANCOMYCIN 1,750 MG in SODIUM CHLORIDE 0.9% 500 ML 500 ML IVPB SCH (06:58)
[2019-06-25 07:33] LABS: Anisocytosis Slight; Basophils % (A) 0 %; Eosinophils % (A) 0 %; HCT 25.3 % (39.0-53.0); HGB 7.9 gm/dL (13.0-17.5); Hypochromasia Marked; Lymphocytes # (A) 1.2 k/uL (1.0-4.8); Lymphocytes % (A) 5 %; MCH 27.3 pg (25.0-35.0); MCHC 31.4 g/dL (31.0-37.0); Monocytes # (A) 1.1 k/uL (0-1.0); Monocytes % (A) 4 %; Neutrophils # (A) 22.7 k/uL (1.3-7.7); Neutrophils % (A) 89 %; Platelet Count 313 k/uL (150-450); Poikilocytosis Slight; RBC 2.91 m/uL (4.30-5.90); RDW 16.1 % (11.5-15.5); WBC 25.7 k/uL (3.8-10.6)
[2019-06-25] MEDS: IPRATROPIUM-ALBUTEROL 3 ML NEB IH SCH ×5 (07:34→23:58)
[2019-06-25] MEDS: BUDESONIDE 0.5 MG/2 ML NEBU INHALATION SCH ×2 (07:34→20:12)
--- NOTE | 2019-06-25 07:35 | XR ---
EXAMINATION TYPE: XR chest 1V portable DATE OF EXAM: 06/25/2019 COMPARISON: 06/24/2019 HISTORY: Endotracheal tube placement. Shortness of breath. TECHNIQUE: Single frontal view of the chest is obtained. FINDINGS: Redemonstration of a moderate right pleural effusion. Right-sided thoracostomy tubes are r edemonstrated that are similar in position. A small amount of subcutaneous emphysema seen along the r ight lateral chest wall. Mild pulmonary vascular congestion throughout. Cardiomediastinal silhouette is enlarged. Right internal jugular central venous catheter, endotracheal, and enteric tubes are romina lar in position. Small left pleural effusion. Stable cardiac mediastinal silhouette. IMPRESSION: Redemonstration of fluid overload with moderate right pleural effusion, small left pleur al effusion and diffuse mild pulmonary vascular congestion. Stable lines and tubes.
[2019-06-25 07:51] LABS: Calcium 7.1 mg/dL (8.4-10.2); Potassium 4.5 mmol/L (3.5-5.1)
[2019-06-25 08:05] LABS: Glucose,Whole Blood 138 mg/dL (75-99)
[2019-06-25] MEDS: NOREPINEPHRINE 4 MG in SODIUM CHLORIDE 0.9% 250 ML IV SCH ×3 (08:09→22:36)
[2019-06-25] MEDS ORDERED: fentaNYL (PF) 50 MCG/ML 2 ML AMP IVP PRN (08:13)
[2019-06-25] MEDS: AMIODARONE 200 MG TAB OG-TUBE SCH ×2 (08:27→21:27)
[2019-06-25] MEDS: ASPIRIN 81 MG PO SCH (08:27)
[2019-06-25] MEDS: ATORVASTATIN 40 MG TAB PO SCH (08:27)
[2019-06-25] MEDS: ACETAMINOPHEN TAB 500 MG TAB OG-TUBE PRN (08:28)
[2019-06-25] MEDS: METOPROLOL TARTRATE 25 MG TAB PO SCH ×2 (08:28→21:27)
[2019-06-25] MEDS: PANTOPRAZOLE 40 MG/10 ML VIAL IVP SCH (08:29)
[2019-06-25] MEDS: CHLORHEXIDINE GLUCONATE 15 ML CUP MUCOUS MEM SCH ×2 (08:29→21:27)
[2019-06-25] MEDS: PIPERACILLIN-TAZOBACTAM 3.375 GM in SODIUM CHLORIDE 0.9% 100 ML IVPB SCH ×3 (08:47→23:33)
[2019-06-25] MEDS ORDERED: FUROSEMIDE 10 MG/ML 4 ML VIAL IV STA ×2 (09:36→17:19)
--- NOTE | 2019-06-25 09:42 | P.PN ---
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 Past medical history of Abbot mediastinoscopy with l ymph node biopsy, COPD with preoperative FEV1 82% of predicted, previous tobacco dependence, obstructive sleep apnea without home CPAP use, as needed home oxygen use, coronary artery disease with myocardial infarction and prior stenting, hypertension, insulin-dependent diabetes, chronic kidney disease, and recent laminectomy with subsequent sepsis. POD #4 right VATS thoracoscopy, right thoracotomy, right bi-lobectomy with mediastinal lymph node dissection (right upper and right middle lobe) Status post day #1 placement of right right IJ triple-lumen central catheter and left radial arterial line by Dr. Cortés. Postoperative hypotension, unexpected, possible volume loss. Postoperative paroxysmal atrial fibrillation, an unexpected outcome. Postoperative acute blood loss anemia, an unexpected but potential outcome of surgery due to hemodilution. Postoperative pain, expected. Postoperative acute hypoxic respiratory failure requiring reintubation with mechanical ventilator support, unexpected, multifactorial. The patient is currently lying in bed in the intensive care unit. The patient remains intubated with mechanical ventilator support, he is sedated with propofol drip at 15 mcg/kg/m and has fentanyl running at 0.25 mcg/kg/m. Oxygen saturations are 96% on current mechanical ventilator settings which are as follows assist control 20, TV 550, FiO2 45%, PEEP of 5. Currently he is not opening up his eyes to verbal stimuli or responding to noxious stimuli. Norepinephrine drip remains infusing at 0.1 mcg/kg/m with his blood pressure currently 113/51. Bedside telemetry showing sinus tachycardia heart rate 107 and his current temperature is 100.7F. His T-max temperature is 102F. OG tube remains in place with tube feedings vital high-protein initiated yesterday at 20 mL per hour. No further episodes of atrial fibrillation and he remains on amiodarone drip at 0.5 mg/m. Lab results this morning show a WBC count 25.7, hemoglobin 7.9, BUN 39 and creatinine 2.03. Urine culture preliminary results pending, blood cultures showed no growth after 24 hours, and his Gram stain sputum culture preliminary results show rare polymorphonuclear leukocytes, no epithelial cells and few gram-positive cocci in clusters. Surgical pathology results remain pending. His chest x-ray demonstrates redemonstration of some fluid overload with a moderate right pleural effusion, small left pleural effusion and diffuse mild pulmonary vascular congestion. Objective - Vital Signs Vital signs: Vital Signs Temp 98.6 F 06/25/19 04:00 Pulse 107 H 06/25/19 07:34 Resp 21 06/25/19 07:00 BP 90/48 06/25/19 07:00 Pulse Ox 95 06/25/19 07:00 Intake & Output 06/24/19 06/25/19 06/25/19 18:59 06:59 18:59 Intake Total 1444.249 708.992 33 Output Total 1161 980 50 Balance 283.249 -271.008 -17 Weight 112.4 kg Intake: IV 493 333 33 Calcium Gluconate 1 gm In 100 Sodium Chloride 0.9% 100 ml @ 100 mls/hr IVPB ONCE ONE Rx#:[id number] Pressure bags 33 33 3 Sodium Chloride 0.9% 1, 360 300 30 000 ml @ 30 mls/hr IV . Q24H [facility] Rx#:[id number] Intake, IV Titration 951.249 375.992 Amount Amiodarone 300 mg In 150.417 Dextrose 5% in Water 250 ml @ 0.5 MG/MIN 25 mls/hr IV .Q10H [facility] Rx#: [id number] Amiodarone 300 mg In 250 Dextrose 5% in Water 250 ml @ 0.5 MG/MIN 25 mls/hr IV .Q10H [facility] Rx#: [id number] Insulin Regular 100 unit 34.003 27.254 In Sodium Chloride 0.9% 100 ml @ Per Protocol IV .Q0M [facility] Rx#:[id number] Norepinephrine 4 mg In 608.045 Sodium Chloride 0.9% 250 ml @ 0.05 MCG/KG/MIN 20. 955 mls/hr IV .Q12H8M [facility] Rx#:[id number] Propofol 1,000 mg In 134.844 65.156 Empty Bag 1 bag @ Titrate IV .Q0M [facility] Rx#: [id number] fentaNYL (PF) 1,000 mcg 23.94 33.582 In Sodium Chloride 0.9% 80 ml @ 0.5 MCG/KG/HR 5.7 mls/hr IV .[id number] [facility] Rx#:[id number] Output: Chest Tube Drainage 15 110 Right Lateral Chest 15 110 Gastric Drainage 125 Drainage 51 Right Chest 51 Urine 970 870 50 Other: Voiding Method Indwelling Catheter Indwelling Catheter ABP, PAP, CO, CI - Last Documented Arterial Blood Pressure 72/30 - Constitutional Constitutional Comment(s): Remains intubated with mechanical ventilator support sedated on propofol and fentanyl drip. - EENT Eyes: Present: PERRLA - Respiratory Details: Lung sounds with coarse rhonchi throughout his left lobe, diminished to his right lobe. Respirations are symmetrical and nonlabored with mechanical ventilator support. Mechanical ventilator settings are as follows, assist- control 20, TV 550, FiO2 45%, PEEP 5. Oxygen saturation is 96% on current mechanical ventilator settings. Right pleural chest tubes remain in place to low continuous wall suction -20 cm H2O. Continuous air leak is present. Draining thin serosanguineous drainage. 100 mL output in the last 8 hours, 220 mL output in the last 24 hours. - Cardiovascular Details: Regular rhythm with tachycardic rate. S1 and S2 present, negative for S3, gallop or murmur. Bedside telemetry showing sinus tachycardia heart rate 108 BPM. Trace edema to his bilateral lower extremities. Knee-high sequential compression devices in place to his bilateral lower extremities. - Gastrointestinal Gastrointestinal Comment(s): Abdomen is soft and nondistended. Hypoactive bowel sounds present all 4 abdominal quadrants. OG tube in place with vital high-protein to feeding infusing at 20 mL per hour. - Genitourinary Genitourinary Comment(s): Mckeon catheter for accurate I&O. Draining clear yellow urine. 570 mL output in the last 8 hours. - Integumentary Integumentary Comment(s): Skin is warm and dry. No clubbing or cyanosis is present. Right thoracotomy incision site is clean, dry and intact. No redness or drainage is present. Gauze dressing is clean, dry and in place. - Neurologic Neurologic Comment(s): Sedated on propofol and fentanyl drip. No response to noxious stimuli. - Musculoskeletal Musculoskeletal Comment(s): Sedated on propofol and fentanyl drip. - Psychiatric Psychiatric Comment(s): Sedated on propofol and fentanyl drip. - Allied health notes Allied health notes reviewed: nursing - Labs CBC & Chem 7: 06/25/19 06:00 06/25/19 06:00 Labs: Abnormal Lab Results - Last 24 Hours (Table) 06/24/19 06/24/19 06/24/19 Range/Units 08:03 08:27 09:27 WBC (3.8-10.6) k/uL RBC (4.30-5.90) m/uL Hgb (13.0-17.5) gm/dL Hct (39.0-53.0) % RDW (11.5-15.5) % Neutrophils # (1.3-7.7) k/uL Monocytes # (0-1.0) k/uL ABG pH 7.27 L (7.35-7.45) ABG pCO2 47 H (35-45) mmHg ABG pO2 (83-108) mmHg ABG Total CO2 (19-24) mmol/L ABG O2 Saturation 98.2 H (94-97) % POC Glucose (mg/dL) 122 H 139 H (75-99) mg/dL 06/24/19 06/24/19 06/24/19 Range/Units 10:01 10:35 11:02 WBC (3.8-10.6) k/uL RBC (4.30-5.90) m/uL Hgb (13.0-17.5) gm/dL Hct (39.0-53.0) % RDW (11.5-15.5) % Neutrophils # (1.3-7.7) k/uL Monocytes # (0-1.0) k/uL ABG pH (7.35-7.45) ABG pCO2 (35-45) mmHg ABG pO2 (83-108) mmHg ABG Total CO2 (19-24) mmol/L ABG O2 Saturation (94-97) % POC Glucose (mg/dL) 152 H 151 H 149 H (75-99) mg/dL 06/24/19 06/24/19 06/24/19 Range/Units 11:47 11:56 13:59 WBC (3.8-10.6) k/uL RBC (4.30-5.90) m/uL Hgb (13.0-17.5) gm/dL Hct (39.0-53.0) % RDW (11.5-15.5) % Neutrophils # (1.3-7.7) k/uL Monocytes # (0-1.0) k/uL ABG pH 7.25 L (7.35-7.45) ABG pCO2 49 H (35-45) mmHg ABG pO2 (83-108) mmHg ABG Total CO2 (19-24) mmol/L ABG O2 Saturation 98.0 H (94-97) % POC Glucose (mg/dL) 158 H 150 H (75-99) mg/dL 06/24/19 06/24/19 06/24/19 Range/Units 15:58 16:00 18:26 WBC (3.8-10.6) k/uL RBC (4.30-5.90) m/uL Hgb (13.0-17.5) gm/dL Hct (39.0-53.0) % RDW (11.5-15.5) % Neutrophils # (1.3-7.7) k/uL Monocytes # (0-1.0) k/uL ABG pH 7.32 L (7.35-7.45) ABG pCO2 46 H (35-45) mmHg ABG pO2 116 H (83-108) mmHg ABG Total CO2 25 H (19-24) mmol/L ABG O2 Saturation 98.8 H (94-97) % POC Glucose (mg/dL) 154 H 136 H (75-99) mg/dL 06/24/19 06/24/19 06/24/19 Range/Units 19:55 20:00 22:03 WBC (3.8-10.6) k/uL RBC (4.30-5.90) m/uL Hgb (13.0-17.5) gm/dL Hct (39.0-53.0) % RDW (11.5-15.5) % Neutrophils # (1.3-7.7) k/uL Monocytes # (0-1.0) k/uL ABG pH 7.31 L (7.35-7.45) ABG pCO2 (35-45) mmHg ABG pO2 (83-108) mmHg ABG Total CO2 (19-24) mmol/L ABG O2 Saturation 97.6 H (94-97) % POC Glucose (mg/dL) 132 H 170 H (75-99) mg/dL 06/24/19 06/25/19 06/25/19 Range/Units 23:52 00:05 01:52 WBC (3.8-10.6) k/uL RBC (4.30-5.90) m/uL Hgb (13.0-17.5) gm/dL Hct (39.0-53.0) % RDW (11.5-15.5) % Neutrophils # (1.3-7.7) k/uL Monocytes # (0-1.0) k/uL ABG pH 7.27 L (7.35-7.45) ABG pCO2 46 H (35-45) mmHg ABG pO2 (83-108) mmHg ABG Total CO2 (19-24) mmol/L ABG O2 Saturation 97.9 H (94-97) % POC Glucose (mg/dL) 199 H 161 H (75-99) mg/dL 06/25/19 06/25/19 06/25/19 Range/Units 03:54 03:58 06:00 WBC 25.7 H (3.8-10.6) k/uL RBC 2.91 L (4.30-5.90) m/uL Hgb 7.9 L (13.0-17.5) gm/dL Hct 25.3 L (39.0-53.0) % RDW 16.1 H (11.5-15.5) % Neutrophils # 22.7 H (1.3-7.7) k/uL Monocytes # 1.1 H (0-1.0) k/uL ABG pH 7.31 L (7.35-7.45) ABG pCO2 46 H (35-45) mmHg ABG pO2 (83-108) mmHg ABG Total CO2 25 H (19-24) mmol/L ABG O2 Saturation 97.5 H (94-97) % POC Glucose (mg/dL) 119 H (75-99) mg/dL 06/25/19 Range/Units 06:51 WBC (3.8-10.6) k/uL RBC (4.30-5.90) m/uL Hgb (13.0-17.5) gm/dL Hct (39.0-53.0) % RDW (11.5-15.5) % Neutrophils # (1.3-7.7) k/uL Monocytes # (0-1.0) k/uL ABG pH (7.35-7.45) ABG pCO2 (35-45) mmHg ABG pO2 (83-108) mmHg ABG Total CO2 (19-24) mmol/L ABG O2 Saturation (94-97) % POC Glucose (mg/dL) 103 H (75-99) mg/dL Microbiology - Last 24 Hours (Table) 06/23/19 22:20 Blood Culture - Preliminary Blood No Growth after 24 hours 06/23/19 22:09 Gram Stain - Preliminary Sputum Sputum Culture - Preliminary 06/24/19 01:22 Urine Culture - Preliminary Urine,Catheterized - Imaging and Cardiology Chest x-ray: report reviewed, image reviewed Assessment and Plan Assessment: 1. 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 History of Abbot mediastinoscopy with lymph node biopsy 3. COPD with preoperative FEV1 82% of predicted 4. Remote history of tobacco dependence 5. Obstructive sleep apnea without home CPAP use 6. Home oxygen use as needed 7. Coronary artery disease with previous myocardial infarction and prior stenting 8. Hypertension, currently postoperative hypertension on IV pressors 9. Insulin dependent diabetes 10. Chronic kidney disease 11. Recent laminectomy with subsequent sepsis in March 2019 12. GERD 13. Postoperative pain, expected to continue thoracotomy incision 14. Postoperative paroxysmal atrial fibrillation, unexpected 15. Postoperative acute blood loss anemia, unexpected 16. Postoperative acute hypoxic respiratory failure requiring reintubation with mechanical ventilator support, unexpected, multifactorial 17. Postoperative fever, with leukocytosis unknown source Plan: 1. Continue right pleural chest tubes to continuous wall suction -20 cm H2O. Continue to monitor for resolution of air leak. Surgical pathology remains pending. 2. Continue bronchodilators, inhaled steroids per pulmonology management. 3. Mechanical ventilator setting management per pulmonary critical care medicine. 4. Continue norepinephrine, wean norepinephrine as tolerated. 5. Will monitor daily labs and chest x-rays. Electrolyte replacement as necessary. 6. GI/DVT prophylaxis. 7. Transfuse 1 unit of PRBCs for hemoglobin of 7.9 now followed by Lasix 40 mg IV 1. 8. Continue Lopressor. Continue amiodarone 400 mg per G-tube twice a day for atrial fibrillation prophylaxis. 9. Pain control with current medication regimen. Avoid Toradol secondary to k idney function. Discontinue fentanyl drip and hold propofol drip at this time as the patient is not responding to noxious stimuli. 10. Continue Mckeon for accurate intake and output. 11. Urine, blood and sputum culture results pending. Continuing to monitor for fever. 12. Medical management and other comorbidities per primary care service. 13. Start acetaminophen 1000 mg every 6 hours when necessary pain or fever per OG tube. 14. More recommendations to follow based on patient's clinical course. Time with Patient: Greater than 30
[2019-06-25 10:12] LABS: Glucose,Whole Blood 172 mg/dL (75-99)
--- NOTE | 2019-06-25 10:48 | PN ---
PROGRESS NOTE PULMONARY/CRITICAL CARE PROGRESS NOTE: DATE OF SERVICE: June 25, 2019 CRITICAL CARE TIME: 36 minutes. This is an 83-year-old male who was admitted back on June 21. He underwent a right thoracotomy and bilobectomy involving the right upper lobe and right middle lobe by Dr. Finley for lung cancer. Previous to this, he had electromagnetic navigational bronchoscopy performed by Dr. Dawson for stage IIB squamous cell carcinoma. The squamous cell carcinoma was diagnosed on the navigational bronchoscopy. The patient was apparently extubated in the recovery room and did well initially but unfortunately because of mental status changes was reintubated on June 23. He has been on the ventilator since. Currently, he is on the mechanical ventilator. His current settings include the assist-control mode rate of 20, breathing 25 times a minute, tidal volume 550, FiO2 of 45%, PEEP of 5. Blood gases show pO2 of 94, pCO2 of 46, pH 7.31. He is getting saline at 30 mL an hour, Levophed at 12 to 13 mcg/minute. Insulin is currently on hold. Propofol is on hold. Fentanyl is on hold. He is getting Vital high-protein at 20 with a goal of 40 mL an hour. The patient will have some vent changes done. The patient's rate will go from 20 to 26 and tidal volume was dropped from 550 to 450. A blood gas will be repeated in about an hour. He is postop day #4, status post video- assisted thoracoscopic right thoracotomy with right bilobectomy and mediastinal lymph node dissection The two lobes removed were the right upper lobe and right middle lobe. He was recently found on navigational bronchoscopy to have squamous cell carcinoma. That was diagnosed in January 2019. Currently, he appears to be reasonably stable. I did have a conversation with Scott Becerra who works with cardiothoracic surgery and also with the family including his daughter who is the medical decision maker. Apparently the family has expressed the fact that Mr. Grace would not want to be on life support for an extended period of time. I did mention to the family that we should probably give at least a couple more days to see if he does not turn around. The daughter was fine with that. PHYSICAL EXAMINATION: VITAL SIGNS: Current vital signs are reviewed. Temperature is 100.7, heart rate 108, respiratory rate 26 breaths per minute, blood pressure 120/54, mean 76, saturations are 99%. GENERAL: Appears in no acute distress. Currently not receiving sedation, but relatively sedate. Sedation was just turned off including both the fentanyl and propofol. HEENT: Examination is grossly unremarkable. He has an orally placed endotracheal tube and NG tube. NECK: Supple. Full range of motion. CARDIOVASCULAR: Examination reveals tachycardia. Heart rate about 105 beats per minute. S1, S2 normal. Heart sounds are distant. LUNGS: Reveal coarse rhonchi. No wheezes or crackles. Breath sounds equal. There is a right sided chest tube. ABDOMEN: Soft. Bowel sounds are heard. EXTREMITIES: Are intact. No cyanosis, clubbing, or edema. SKIN: Without rash. NEUROLOGIC: Examination is difficult to assess as the patient was recently on sedatives and has not come off fully, has not been off the sedatives long enough to respond. Microbiology include urine, blood and sputum are all negative thus far. A chest x-ray shows relatively clear left lung, although there may be a small left- sided pleural effusion. Two chest tubes on the right. Volume loss on the right. Atelectasis or infiltrate or pleural effusion on the right as well. Endotracheal tube is positioned above the tracheal radha. LAB DATA: Lab data is reviewed. White count 25.7, hemoglobin 7.9, hematocrit 25.3, platelet count 313,000. Sodium 141, potassium 4.5, chloride 110, CO2 of 23. Anion gap is 8. BUN and creatinine were 39 and 2.03. MEDICATIONS: Medications are reviewed. Microbiology is reviewed. ASSESSMENT: 1. Postoperative day #4, status post video-assisted thoracoscopic right thoracotomy, right bilobectomy including the right upper lobe, right middle lobe, as well as mediastinal lymph node dissection. 2. 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 3. Postoperative hypoxemic respiratory failure, likely secondary to narcotic induced hypoventilation, possible nosocomial pneumonia and possible diastolic congestive heart failure. 4. Invasive moderately differentiated squamous cell carcinoma of the right mid lung, diagnosed back in January 2019. 5. Postoperative atrial fibrillation with rapid ventricular response. 6. Postoperative anemia. 7. Routine postoperative ventilator management. 8. Postoperative subcutaneous emphysema. 9. History of chronic obstructive pulmonary disease, mild in severity with an FEV 1% at 82. 10.History of laminectomy and decompression, L3/L4 in March this year. 11.History of mediastinoscopy with lymph node biopsy on March 22, 2019. 12.History of type 2 diabetes mellitus with diabetic neuropathy. 13.Benign essential hypertension. 14.History of coronary artery disease with previous myocardial infarction. 15.History of sleep apnea syndrome. 16.History of gastroesophageal reflux disease. PLAN: Will continue for the time being with good supportive care. The tidal volume will be dropped from 550 to 450 and rate will be increased from 20 to 26. This should help with the leak from the right-sided chest tube. The patient will be maintained on current medications, although he is getting a holiday from his propofol and fentanyl. He is on Levophed or norepinephrine at 12 to 13 mcg/minute. He is getting Vital high- protein at 20 with a goal of 40 mL an hour. Labs reviewed. Medications are reviewed. Chest x-rays reviewed. We will continue with nutrition, bronchodilators, lab work, etc. Prognosis is guarded. Again for the time being, the family would like everything done. Additional recommendations and suggestions are forthcoming. Again medications are reviewed. CRITICAL CARE TIME: 36 minutes. KASHMIR / JASON: [id number] /
[2019-06-25 11:21] LABS: Glucose,Whole Blood 173 mg/dL (75-99)
[2019-06-25 13:12] LABS: Glucose,Whole Blood 177 mg/dL (75-99)
[2019-06-25 13:37] LABS: Anisocytosis Slight; HCT 26.1 % (39.0-53.0); HGB 8.3 gm/dL (13.0-17.5); Hypochromasia Moderate; MCH 27.5 pg (25.0-35.0); MCHC 31.7 g/dL (31.0-37.0); MCV 86.7 fL (80.0-100.0); Mean Platelet Volume 8.3; Platelet Count 301 k/uL (150-450); Poikilocytosis Slight; RBC 3.01 m/uL (4.30-5.90)
--- NOTE | 2019-06-25 14:09 | PN ---
PROGRESS NOTE An 83-year-old white male, currently on mechanical ventilator, status post Dr. Finley for lung cancer taken out his right upper lobe, right middle lobe, bilobectomy and right thoracotomy 4 days ago. He was extubated then reintubated for the last 3 days. Blood gas shows pO2 of 94, pCO2 of 46, P 7.31. He is getting saline 30 mL an hour, Levophed 12 to 13 mcg per minute, insulin on hold. Sugars have been good. Propofol is on hold. Fentanyl on hold. He is getting high protein at 20 with a goal 40 mL an hour. Being seen by clerical stock inspector. He is , status post right thoracotomy, bilobectomy, mediastinal lymph node dissection for squamous cell carcinoma of the lung. Try to wean him off the vent if possible. Chest x-ray is clear, small pleural effusion. When I talk to him, he does open his eyes. He has been moving 4 extremities. Lungs apparently have coarse sounds. HEART: S1, S2. ASSESSMENT: 1. Status post thoracotomy, stage IIB squamous cell carcinoma of the lung. 2. Postoperative active hypoxemic respiratory failure secondary to narcotic induced hypoventilation. 3. Rule out pneumonia, possible diastolic heart failure versus worsening of his chronic obstructive pulmonary disease minus part of his lungs. 4. Chronic atrial fibrillation. 5. He has acute on chronic anemia. He is getting 2 units of blood today. 6. Postoperative subcutaneous emphysema. 7. Chronic obstructive pulmonary disease. 8. Status post laminectomy and decompression in March of this year. 9. Type 2 diabetes mellitus on insulin. Sugars are stable. 10.Hypertension. 11.Coronary artery disease. 12.Sleep apnea. 13.Gastroesophageal reflux disease. Continue to wean off and give him blood transfusion being done today. Prognosis guarded. Discuss with the family his care. Neon Light Installer is lowering his tidal volume and increasing the rate to help with the leak from the right-sided chest tube. We will continue to monitor in ICU with Pulmonology and cardiac surgeon. MMODL / IJN: [id number] /
[2019-06-25 15:16] LABS: Glucose,Whole Blood 185 mg/dL (75-99)
[2019-06-25] MEDS ORDERED: CALCIUM GLUCONATE 1 GM in SODIUM CHLORIDE 0.9% 100 ML IVPB ONE (15:30)
[2019-06-25 16:46] LABS: Glucose,Whole Blood 218 mg/dL (75-99)
[2019-06-25] MEDS: CHOLECALCIFEROL 1,000 UNIT TAB PO SCH (16:52)
[2019-06-25 17:19] LABS: Glucose,Whole Blood 223 mg/dL (75-99)
[2019-06-25 18:40] LABS: Glucose,Whole Blood 194 mg/dL (75-99)
[2019-06-25 19:13] LABS: Glucose,Whole Blood 183 mg/dL (75-99)
[2019-06-25 19:57] LABS: Glucose,Whole Blood 202 mg/dL (75-99)
[2019-06-25 21:19] LABS: Glucose,Whole Blood 200 mg/dL (75-99)
[2019-06-25] MEDS: SENNOSIDES-DOCUSATE SODIUM 1 EACH TAB PO SCH (21:27)
[2019-06-25 22:08] LABS: Glucose,Whole Blood 197 mg/dL (75-99)
[2019-06-25] MEDS: INSULIN REGULAR 100 UNIT in SODIUM CHLORIDE 0.9% 100 ML IV SCH (22:37)
[2019-06-25 23:09] LABS: Glucose,Whole Blood 191 mg/dL (75-99)
[2019-06-26 00:19] LABS: Glucose,Whole Blood 170 mg/dL (75-99)
[2019-06-26 01:08] LABS: Glucose,Whole Blood 173 mg/dL (75-99)
[2019-06-26 02:07] LABS: Glucose,Whole Blood 175 mg/dL (75-99)
[2019-06-26] MEDS: ACETAMINOPHEN TAB 500 MG TAB OG-TUBE PRN ×4 (02:26→19:43)
[2019-06-26 02:54] LABS: Glucose,Whole Blood 181 mg/dL (75-99)
[2019-06-26] MEDS: IPRATROPIUM-ALBUTEROL 3 ML NEB IH SCH ×6 (02:58→23:26)
[2019-06-26] MEDS: PROPOFOL 1,000 MG in EMPTY BAG 1 BAG IV SCH ×2 (03:06→10:12)
[2019-06-26 03:09] LABS: Anisocytosis Slight; HGB 8.4 gm/dL (13.0-17.5); Hypochromasia Marked; MCH 27.1 pg (25.0-35.0); MCHC 31.1 g/dL (31.0-37.0); MCV 87.3 fL (80.0-100.0); Mean Platelet Volume 8.7; Platelet Count 309 k/uL (150-450); Poikilocytosis Slight; RDW 16.2 % (11.5-15.5); WBC 31.3 k/uL (3.8-10.6)
--- NOTE | 2019-06-26 03:13 | XR ---
EXAMINATION TYPE: XR chest 1V portable DATE OF EXAM: 06/26/2019 COMPARISON: Yesterday HISTORY: Check tube placement TECHNIQUE: Single view FINDINGS: Endotracheal tube is 1.8 cm from the radha. Right jugular catheter has tip in the superior vena cava. There are 2 right-sided chest tubes with the tip over the right lung apex. There is no pn eumothorax. There is mild to moderate right pleural effusion. There are small left pleural effusion. There is pulmonary vascular congestion. IMPRESSION: Bilateral pleural effusions larger on the right side. No pneumothorax. There is probably some mild congestive heart failure. No significant change.
[2019-06-26 03:53] LABS: Albumin 2.2 g/dL (3.5-5.0); Calcium 7.1 mg/dL (8.4-10.2); Potassium 4.1 mmol/L (3.5-5.1); Total Bilirubin 0.7 mg/dL (0.2-1.3); Total Protein 5.3 g/dL (6.3-8.2)
[2019-06-26] MEDS: NOREPINEPHRINE 32 MG in SODIUM CHLORIDE 0.9% 218 ML IV SCH (03:59)
[2019-06-26 04:05] LABS: Band Neutrophils % 28 %; Lymphocytes # (M) 2.19 k/uL (1.0-4.8); Metamyelocytes # (M) 0.31 k/uL (0); Metamyelocytes % 1 %; Monocytes # (M) 0.94 k/uL (0-1.0); Neutrophils % (M) 62 %; Nucleated Red Blood Cells 0 /100 WBC (0-0); Total Cells Counted 200
[2019-06-26 04:07] LABS: Polychromasia Present; Toxic Vacuolation Present
[2019-06-26 04:14] LABS: Glucose,Whole Blood 166 mg/dL (75-99)
[2019-06-26 04:46] LABS: ABG HCO3 24 mmol/L (21-25); ABG Oxygen Saturation 96.4 % (94-97); ABG PCO2 56 mmHg (35-45); ABG PH 7.24 (7.35-7.45); ABG PO2 89 mmHg (83-108); ABG TCO2 25 mmol/L (19-24)
[2019-06-26 04:49] LABS: Allen Test Performed? no
[2019-06-26 05:03] LABS: Glucose,Whole Blood 171 mg/dL (75-99)
[2019-06-26] MEDS ORDERED: DEXTROSE 5% IN WATER 100 ML with AMIODARONE 150 MG IV ONE (05:15)
[2019-06-26 06:17] LABS: Glucose,Whole Blood 173 mg/dL (75-99)
[2019-06-26] MEDS: VANCOMYCIN 1,750 MG in SODIUM CHLORIDE 0.9% 500 ML 500 ML IVPB SCH (06:22)
[2019-06-26 06:57] LABS: Glucose,Whole Blood 166 mg/dL (75-99)
[2019-06-26] MEDS ORDERED: BISACODYL 10 MG SUPP RECTAL STA (07:36)
[2019-06-26] MEDS: BUDESONIDE 0.5 MG/2 ML NEBU INHALATION SCH ×2 (07:40→18:47)
[2019-06-26] MEDS ORDERED: CISATRACURIUM 2 MG/ML 5 ML VIAL IV ONE (08:06)
[2019-06-26] MEDS: PIPERACILLIN-TAZOBACTAM 3.375 GM in SODIUM CHLORIDE 0.9% 100 ML IVPB SCH (08:14)
[2019-06-26] MEDS: PANTOPRAZOLE 40 MG/10 ML VIAL IVP SCH (08:14)
[2019-06-26] MEDS: MAGNESIUM SULFATE-D5W PMX 1 GM in DEXTROSE/WATER 1 100ML.BAG IVPB SCH ×2 (08:14→09:30)
[2019-06-26 08:35] LABS: Glucose,Whole Blood 169 mg/dL (75-99)
[2019-06-26] MEDS: ATORVASTATIN 40 MG TAB PO SCH (08:43)
[2019-06-26] MEDS: AMIODARONE 200 MG TAB OG-TUBE SCH ×2 (08:43→19:44)
[2019-06-26] MEDS: CHLORHEXIDINE GLUCONATE 15 ML CUP MUCOUS MEM SCH ×2 (08:43→19:45)
[2019-06-26] MEDS: METOPROLOL TARTRATE 25 MG TAB PO SCH ×2 (08:49→19:45)
[2019-06-26] MEDS: ASPIRIN 81 MG PO SCH (08:49)
[2019-06-26] MEDS: HEPARIN SODIUM,PORCINE 5,000 UNIT/ML 1 ML VIAL SQ SCH ×2 (08:49→17:15)
--- NOTE | 2019-06-26 08:56 | PN ---
PROGRESS NOTE PULMONARY/CRITICAL CARE PROGRESS NOTE: DATE OF SERVICE: June 26, 2019 CRITICAL CARE TIME: 34 minutes. An 83-year-old male admitted back on June 21. He underwent a right thoracotomy and bilobectomy involving the right upper lobe and right middle lobe by Dr. Finley for lung cancer. Previous to that, he underwent electromagnetic navigational bronchoscopy performed by Dr. Dawson. He was discovered to have squamous cell carcinoma. 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 Initially he was in the recovery room and did well but unfortunately because of mental status changes and possible excess narcotics, he was reintubated on June 23. He has been on the ventilator since. Currently, he is on the volume assist-control mode rate of 30, tidal volume 450, FiO2 of 50%, PEEP of 5. Blood gases showed a pO2 of 89, pCO2 of 56 and a pH of 7.24. That was on an AC mode with a rate of 26. Subsequent to that, the rate was increased to 30. Currently, he is dyssynchronous with the ventilator. I am going to switch the pressure regulated volume control mode or VC plus mode. His rate will be 32. We will keep a tidal volume or a targeted tidal volume of 450. We will use an inspiratory time of 0.8 seconds, FiO2 of 50%, PEEP of 5. We will do a blood gas in 1 hour. In addition, we will bump up his propofol a bit and give him 1 dose of Nimbex 10 mg IV push to see if we can get him synchronized with the ventilator. In addition, he is on saline at 30 mL an hour, Levophed at 22 mcg/minute, propofol at 10 to be increased to 20 mcg/kg per minute, insulin drip of 4.5 units an hour and Vital high-protein at 40 with a goal of 40 mL an hour. His chest x-ray is reviewed. He is postop day #5. I did have a conversation with the surgeon yesterday and also with the family. PHYSICAL EXAMINATION: VITAL SIGNS: Current vital signs are reviewed. Temperature is 99.3, heart rate about 100, respiratory rate 34, blood pressure 102/66, mean 78, CVP is 14, saturations are 95%. GENERAL: Appears mildly dyssynchronous with the ventilator. HEENT: Examination is grossly unremarkable. An oral endotracheal tube and NG tube are noted. NECK: Supple. Full range of motion. No adenopathy. There is some subcutaneous emphysema noted in the neck, shoulder and chest area. CARDIOVASCULAR: Examination reveals tachycardia. Heart rate about 105 beats per minute. S1, S2 normal. LUNGS: Reveal coarse rhonchi. Breath sounds are diminished on the right. No wheezes or crackles. ABDOMEN: Soft. Bowel sounds are heard. EXTREMITIES: Are intact. Minimal edema. SKIN: Without rash. NEUROLOGIC: Examination could not be adequately assessed given his current level of sedation. A chest x-ray is reviewed. It showed bilateral pleural effusions, larger on the right side than on the left. No obvious pneumothorax. Microbiology is showing presumptive Staph aureus in the sputum. Sensitivities are currently pending. LAB DATA: Lab data is reviewed. White count 31.3, hemoglobin 8.4, hematocrit 27.0, platelet count 309,000. Sodium 143, potassium 4.1, chloride 112, CO2 of 23. Anion gap is 8. BUN and creatinine 44 and 1.95. Procalcitonin level is quite elevated at 24.7. Digoxin level 1.2. Albumin 2.2. MEDICATIONS: Medications are reviewed. Antibiotic maravilla, the patient is currently on vancomycin and Zosyn which is more than adequate coverage at this time. ASSESSMENT: 1. Postoperative day #5, status post video-assisted thoracoscopic right thoracotomy, right bilobectomy including right upper lobe/right middle lobe, as well as mediastinal lymph node dissection. 2. 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 3. Postoperative hypoxemic respiratory failure, likely secondary to narcotic induced hypoventilation, possible nosocomial pneumonia, possible diastolic congestive heart failure. 4. Routine postoperative ventilator management. 5. 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 6. Postoperative atrial fibrillation with rapid ventricular response. 7. Postoperative anemia. 8. Routine postoperative ventilator management. 9. Postoperative subcutaneous emphysema. 10.Staph aureus tracheobronchitis versus bronchopneumonia, sensitivities pending. 11.History of chronic obstructive pulmonary disease, mild in severity with an FEV1 that is 82% of predicted. 12.History of laminectomy, decompression L3, L4 in March this year. 13.History of mediastinoscopy with lymph node biopsy in February 2019. 14.History of type 2 diabetes mellitus with diabetic neuropathy. 15.Benign essential hypertension. 16.History of coronary artery disease with previous myocardial infarction. 17.History of sleep apnea syndrome. 18.History of gastroesophageal reflux disease. PLAN: The patient will continue on life support. I did have a conversation with the family yesterday. We switched his ventilator from the volume assist-control mode to the pressure regulated volume control mode or VC plus. His rate will be 32 and targeted tidal volume 450, inspiratory time or TI 0.8 seconds, FiO2 of 50%, PEEP of 5. We will repeat a blood gas in about an hour. The patient's norepinephrine requirement has gone up to 22 mcg per minute. The patient will be given one dose of Nimbex 10 mg to see if we cannot synchronize him with the ventilator. We will bump the propofol up from 10 to 20 mcg/kg per minute. He remains on insulin drip of 4.5 units an hour and Vital high- protein at 40 with a goal of 40. Additional recommendations and suggestions are forthcoming. Prognosis is guarded. We will continue to follow closely. Medications, labs and x-rays are all reviewed. CRITICAL CARE TIME: 34 minutes. KASHMIR / KAYLEYN: [id number] /
[2019-06-26 09:46] LABS: ABG Base Excess -5.7 mmol/L; ABG HCO3 21 mmol/L (21-25); ABG Oxygen Saturation 98.4 % (94-97); ABG PCO2 46 mmHg (35-45); ABG PH 7.28 (7.35-7.45); ABG PO2 112 mmHg (83-108); ABG TCO2 23 mmol/L (19-24); Allen Test Performed? Yes
[2019-06-26 10:29] LABS: Glucose,Whole Blood 231 mg/dL (75-99)
[2019-06-26] MEDS ORDERED: ALBUMIN HUMAN 5% 250 ML in EMPTY BAG 1 BAG IVPB STA (10:39)
[2019-06-26] MEDS ORDERED: SODIUM BICARB 8.4% 50 ML SYR (1 MEQ/ML) IV STA (10:52)
[2019-06-26 11:11] LABS: Glucose,Whole Blood 219 mg/dL (75-99)
[2019-06-26 12:17] LABS: Glucose,Whole Blood 179 mg/dL (75-99)
[2019-06-26] MEDS ORDERED: SODIUM CHLORIDE 0.9% 1,000 ML IV ONE (12:51)
[2019-06-26 13:06] LABS: Glucose,Whole Blood 177 mg/dL (75-99)
--- NOTE | 2019-06-26 13:16 | P.PN ---
Subjective Progress Note Date: 06/26/19 Principal diagnosis: Invasive moderately differentiated squamous cell carcinoma right upper lobe of the lung, stage IIb. Past medical history of [place] mediastinoscopy with l ymph node biopsy, COPD with preoperative FEV1 82% of predicted, previous tobacco dependence, obstructive sleep apnea without home CPAP use, as needed home oxygen use, coronary artery disease with myocardial infarction and prior stenting, hypertension, insulin-dependent diabetes, chronic kidney disease, and recent laminectomy with subsequent sepsis. POD #5 right VATS thoracoscopy, right thoracotomy, right bi-lobectomy with mediastinal lymph node dissection (right upper and right middle lobe) Status post day #2 placement of right right IJ triple-lumen central catheter and left radial arterial line by Dr. Cortés. Postoperative hypotension, unexpected, possible hypovolemic shock. Postoperative paroxysmal atrial fibrillation, an unexpected outcome. Postoperative acute blood loss anemia, an unexpected but potential outcome of surgery due to hemodilution. Postoperative pain, expected. Postoperative acute hypoxic respiratory failure requiring reintubation with mechanical ventilator support, unexpected, multifactorial. Patient is laying in bed in the intensive care unit. He is remains intubated with mechanical ventilator support and continue his peak sedated on propofol drip at 10 mcg/kg/m. Current mechanical ventilator settings are as follows assist control 30, tidal volume 450, FiO2 50%, PEEP of 5 with oxygen saturation is 95% on these settings. Around 5:30 this morning the patient did have an episode of paroxysmal atrial fibrillation which was treated accordingly and is currently showing sinus tachycardia with a heart rate of 105 BPM on his bedside monitor. His T-max temperature in the last 24 hours is 100.8F and he remains on Zosyn and vancomycin. His laboratory results show a WBC count of 31.3, hemoglobin 8.4, positive bandemia 28%, BUN 44 and creatinine 1.95. OG tube remains in place with vital high-protein to feeding infusing at goal rate of 40 mL per hour. Sputum culture showing preliminary result of presumptive staph aureus. Chest x-ray report shows bilateral pleural effusions, and no pneumothorax. Dr. Servin met with the patient's family yesterday and updated them on his care. Objective - Vital Signs Vital signs: Vital Signs Temp 99.5 F 06/26/19 08:00 Pulse 107 H 06/26/19 09:00 Resp 32 H 06/26/19 09:00 BP 115/51 06/26/19 09:00 Pulse Ox 95 06/26/19 09:00 Intake & Output 06/25/19 06/26/19 06/26/19 18:59 06:59 18:59 Intake Total 3804.284 3670.212 318.386 Output Total 1530 1500 220 Balance 242.383 873.212 98.386 Weight 114.8 kg Intake: IV 499 468 87 Calcium Gluconate 1 gm In 100 Sodium Chloride 0.9% 100 ml @ 100 mls/hr IVPB ONCE ONE Rx#:[id number] Piperacillin-Tazobactam 3 25 .375 gm In Sodium Chloride 0.9% 100 ml @ 25 mls/hr IVPB Q12HR [facility] Rx #:[id number] Pressure bags 39 78 12 Sodium Chloride 0.9% 1, 360 390 50 000 ml @ 30 mls/hr IV . Q24H [facility] Rx#:[id number] Intake, IV Titration 919.818 4759.212 191.386 Amount Dextrose 5% in Water 100 100 ml @ 618 mls/hr IV .Q10M ONE with Amiodarone 150 mg Rx#:[id number] Insulin Regular 100 unit 45.989 58.883 In Sodium Chloride 0.9% 100 ml @ Per Protocol IV .Q0M [facility] Rx#:[id number] Magnesium Sulfate-D5w Pmx 100 1 gm In Dextrose/Water 1 100ml.bag @ 100 mls/hr IVPB Q1H [facility] Rx#: [id number] Norepinephrine 32 mg In 19.082 26.213 Sodium Chloride 0.9% 218 ml @ 0.05 MCG/KG/MIN 2. 634 mls/hr IV .Q24H [facility] Rx#:[id number] Norepinephrine 4 mg In 584.067 379.940 Sodium Chloride 0.9% 250 ml @ 0.05 MCG/KG/MIN 20. 955 mls/hr IV .Q12H8M [facility] Rx#:[id number] Piperacillin-Tazobactam 3 100 .375 gm In Sodium Chloride 0.9% 100 ml @ 25 mls/hr IVPB Q8HR [facility] Rx# :[id number] Propofol 1,000 mg In 33.327 167.307 65.173 Empty Bag 1 bag @ Titrate IV .Q0M [facility] Rx#: [id number] Vancomycin 1,750 mg In 500 Sodium Chloride 0.9% 500 ml 500 ml @ 167 mls/hr IVPB Q24H [facility] Rx#: [id number] Tube Feeding 240 460 40 Blood Product 310 Rc Pheresis As-3 Unit 310 [id number] Other 60 120 Output: Chest Tube Drainage 160 160 170 Right Lateral Chest 160 160 170 Urine 1370 1340 50 Other: Voiding Method Indwelling Catheter Indwelling Catheter ABP, PAP, CO, CI - Last Documented Arterial Blood Pressure 86/40 - Constitutional Constitutional Comment(s): Remains sedated on propofol drip at 10 mcg/kg/m. Mildly dyssynchronous with the ventilator - EENT Eyes: Present: PERRLA - Neck Details: Right IJ triple-lumen catheter in place and functioning. - Respiratory Details: Lung sounds with coarse rhonchi throughout his left lobe, diminished to his right lobe. Right pleural chest tube remains in place to low continuous wall suction -20 cm H2O. Intermittent air leak is present. Draining thin serosanguineous drainage with 140 mL output in the last 8 hours, and 300 mL output in the last 24 hours. Respirations are mildly dyssynchronous with mechanical ventilator support. Current mechanical ventilator settings are as follows assist control 30, TV 450, FiO2 50%, PEEP 5 with oxygen saturation is 95%. - Cardiovascular Details: Regular rhythm and tachycardic rate. S1 and S2 present, negative for S3, gallop or murmur. Bedside telemetry showing sinus tachycardia heart rate 105 BPM. Knee-high sequential compression devices in place to his bilateral lower extremities. - Gastrointestinal Gastrointestinal Comment(s): Abdomen is soft, and nondistended. Hypoactive bowel sounds present all 4 abdominal quadrants. OG tube in place with vital high-protein to feeding infusing at goal rate of 40 mL per hour. - Genitourinary Genitourinary Comment(s): Mckeon catheter for accurate I&O. Draining clear yellow urine. - Integumentary Integumentary Comment(s): Skin is warm and dry. No clubbing or cyanosis is present. Right thoracotomy incision with dressing clean, dry and in place. No drainage or redness is present. - Neurologic Neurologic Comment(s): Could not be adequately assessed as the patient is sedated on propofol drip at 10 mcg/kg/m. - Musculoskeletal Musculoskeletal Comment(s): Could not be adequately assessed as the patient is sedated on propofol drip at 10 mcg/kg/m. - Psychiatric Psychiatric Comment(s): Could not be adequately assessed as the patient is sedated on propofol drip at 10 mcg/kg/m. - Allied health notes Allied health notes reviewed: nursing - Labs CBC & Chem 7: 06/26/19 02:37 06/26/19 02:37 Labs: Abnormal Lab Results - Last 24 Hours (Table) 06/13/19 06/23/19 06/25/19 Range/Units 08:41 13:00 06:00 WBC (3.8-10.6) k/uL RBC (4.30-5.90) m/uL Hgb (13.0-17.5) gm/dL Hct (39.0-53.0) % RDW (11.5-15.5) % Neutrophils # (Manual) (1.3-7.7) k/uL Metamyelocytes # (Man) (0) k/uL ABG pH (7.35-7.45) ABG pCO2 (35-45) mmHg ABG Total CO2 (19-24) mmol/L Chloride (98-107) mmol/L BUN (9-20) mg/dL Creatinine (0.66-1.25) mg/dL Glucose (74-99) mg/dL POC Glucose (mg/dL) (75-99) mg/dL Calcium (8.4-10.2) mg/dL Ionized Calcium Laney (4.5-5.3) mg/dL AST (17-59) U/L Total Protein (6.3-8.2) g/dL Albumin (3.5-5.0) g/dL Procalcitonin 24.70 H (0.02-0.09) ng/mL Crossmatch See Detail See Detail 06/25/19 06/25/19 06/25/19 Range/Units 08:00 10:11 11:19 WBC (3.8-10.6) k/uL RBC (4.30-5.90) m/uL Hgb (13.0-17.5) gm/dL Hct (39.0-53.0) % RDW (11.5-15.5) % Neutrophils # (Manual) (1.3-7.7) k/uL Metamyelocytes # (Man) (0) k/uL ABG pH (7.35-7.45) ABG pCO2 (35-45) mmHg ABG Total CO2 (19-24) mmol/L Chloride (98-107) mmol/L BUN (9-20) mg/dL Creatinine (0.66-1.25) mg/dL Glucose (74-99) mg/dL POC Glucose (mg/dL) 172 H 173 H (75-99) mg/dL Calcium (8.4-10.2) mg/dL Ionized Calcium Laney 4.4 L (4.5-5.3) mg/dL AST (17-59) U/L Total Protein (6.3-8.2) g/dL Albumin (3.5-5.0) g/dL Procalcitonin (0.02-0.09) ng/mL Crossmatch 06/25/19 06/25/19 06/25/19 Range/Units 13:00 13:10 15:15 WBC 29.0 H (3.8-10.6) k/uL RBC 3.01 L (4.30-5.90) m/uL Hgb 8.3 L (13.0-17.5) gm/dL Hct 26.1 L (39.0-53.0) % RDW 16.0 H (11.5-15.5) % Neutrophils # (Manual) (1.3-7.7) k/uL Metamyelocytes # (Man) (0) k/uL ABG pH (7.35-7.45) ABG pCO2 (35-45) mmHg ABG Total CO2 (19-24) mmol/L Chloride (98-107) mmol/L BUN (9-20) mg/dL Creatinine (0.66-1.25) mg/dL Glucose (74-99) mg/dL POC Glucose (mg/dL) 177 H 185 H (75-99) mg/dL Calcium (8.4-10.2) mg/dL Ionized Calcium Laney (4.5-5.3) mg/dL AST (17-59) U/L Total Protein (6.3-8.2) g/dL Albumin (3.5-5.0) g/dL Procalcitonin (0.02-0.09) ng/mL Crossmatch 06/25/19 06/25/19 06/25/19 Range/Units 16:45 17:17 18:38 WBC (3.8-10.6) k/uL RBC (4.30-5.90) m/uL Hgb (13.0-17.5) gm/dL Hct (39.0-53.0) % RDW (11.5-15.5) % Neutrophils # (Manual) (1.3-7.7) k/uL Metamyelocytes # (Man) (0) k/uL ABG pH (7.35-7.45) ABG pCO2 (35-45) mmHg ABG Total CO2 (19-24) mmol/L Chloride (98-107) mmol/L BUN (9-20) mg/dL Creatinine (0.66-1.25) mg/dL Glucose (74-99) mg/dL POC Glucose (mg/dL) 218 H 223 H 194 H (75-99) mg/dL Calcium (8.4-10.2) mg/dL Ionized Calcium Laney (4.5-5.3) mg/dL AST (17-59) U/L Total Protein (6.3-8.2) g/dL Albumin (3.5-5.0) g/dL Procalcitonin (0.02-0.09) ng/mL Crossmatch 06/25/19 06/25/19 06/25/19 Range/Units 19:12 19:55 21:18 WBC (3.8-10.6) k/uL RBC (4.30-5.90) m/uL Hgb (13.0-17.5) gm/dL Hct (39.0-53.0) % RDW (11.5-15.5) % Neutrophils # (Manual) (1.3-7.7) k/uL Metamyelocytes # (Man) (0) k/uL ABG pH (7.35-7.45) ABG pCO2 (35-45) mmHg ABG Total CO2 (19-24) mmol/L Chloride (98-107) mmol/L BUN (9-20) mg/dL Creatinine (0.66-1.25) mg/dL Glucose (74-99) mg/dL POC Glucose (mg/dL) 183 H 202 H 200 H (75-99) mg/dL Calcium (8.4-10.2) mg/dL Ionized Calcium Laney (4.5-5.3) mg/dL AST (17-59) U/L Total Protein (6.3-8.2) g/dL Albumin (3.5-5.0) g/dL Procalcitonin (0.02-0.09) ng/mL Crossmatch 06/25/19 06/25/19 06/26/19 Range/Units 22:07 23:07 00:14 WBC (3.8-10.6) k/uL RBC (4.30-5.90) m/uL Hgb (13.0-17.5) gm/dL Hct (39.0-53.0) % RDW (11.5-15.5) % Neutrophils # (Manual) (1.3-7.7) k/uL Metamyelocytes # (Man) (0) k/uL ABG pH (7.35-7.45) ABG pCO2 (35-45) mmHg ABG Total CO2 (19-24) mmol/L Chloride (98-107) mmol/L BUN (9-20) mg/dL Creatinine (0.66-1.25) mg/dL Glucose (74-99) mg/dL POC Glucose (mg/dL) 197 H 191 H 170 H (75-99) mg/dL Calcium (8.4-10.2) mg/dL Ionized Calcium Laney (4.5-5.3) mg/dL AST (17-59) U/L Total Protein (6.3-8.2) g/dL Albumin (3.5-5.0) g/dL Procalcitonin (0.02-0.09) ng/mL Crossmatch 06/26/19 06/26/19 06/26/19 Range/Units 01:06 02:05 02:37 WBC 31.3 H (3.8-10.6) k/uL RBC 3.10 L (4.30-5.90) m/uL Hgb 8.4 L (13.0-17.5) gm/dL Hct 27.0 L (39.0-53.0) % RDW 16.2 H (11.5-15.5) % Neutrophils # (Manual) 28.10 H (1.3-7.7) k/uL Metamyelocytes # (Man) 0.31 H (0) k/uL ABG pH (7.35-7.45) ABG pCO2 (35-45) mmHg ABG Total CO2 (19-24) mmol/L Chloride (98-107) mmol/L BUN (9-20) mg/dL Creatinine (0.66-1.25) mg/dL Glucose (74-99) mg/dL POC Glucose (mg/dL) 173 H 175 H (75-99) mg/dL Calcium (8.4-10.2) mg/dL Ionized Calcium Laney (4.5-5.3) mg/dL AST (17-59) U/L Total Protein (6.3-8.2) g/dL Albumin (3.5-5.0) g/dL Procalcitonin (0.02-0.09) ng/mL Crossmatch 06/26/19 06/26/19 06/26/19 Range/Units 02:37 02:53 04:12 WBC (3.8-10.6) k/uL RBC (4.30-5.90) m/uL Hgb (13.0-17.5) gm/dL Hct (39.0-53.0) % RDW (11.5-15.5) % Neutrophils # (Manual) (1.3-7.7) k/uL Metamyelocytes # (Man) (0) k/uL ABG pH (7.35-7.45) ABG pCO2 (35-45) mmHg ABG Total CO2 (19-24) mmol/L Chloride 112 H (98-107) mmol/L BUN 44 H (9-20) mg/dL Creatinine 1.95 H (0.66-1.25) mg/dL Glucose 171 H (74-99) mg/dL POC Glucose (mg/dL) 181 H 166 H (75-99) mg/dL Calcium 7.1 L (8.4-10.2) mg/dL Ionized Calcium Laney (4.5-5.3) mg/dL AST 63 H (17-59) U/L Total Protein 5.3 L (6.3-8.2) g/dL Albumin 2.2 L (3.5-5.0) g/dL Procalcitonin (0.02-0.09) ng/mL Crossmatch 06/26/19 06/26/19 06/26/19 Range/Units 04:44 05:02 06:15 WBC (3.8-10.6) k/uL RBC (4.30-5.90) m/uL Hgb (13.0-17.5) gm/dL Hct (39.0-53.0) % RDW (11.5-15.5) % Neutrophils # (Manual) (1.3-7.7) k/uL Metamyelocytes # (Man) (0) k/uL ABG pH 7.24 L (7.35-7.45) ABG pCO2 56 H (35-45) mmHg ABG Total CO2 25 H (19-24) mmol/L Chloride (98-107) mmol/L BUN (9-20) mg/dL Creatinine (0.66-1.25) mg/dL Glucose (74-99) mg/dL POC Glucose (mg/dL) 171 H 173 H (75-99) mg/dL Calcium (8.4-10.2) mg/dL Ionized Calcium Laney (4.5-5.3) mg/dL AST (17-59) U/L Total Protein (6.3-8.2) g/dL Albumin (3.5-5.0) g/dL Procalcitonin (0.02-0.09) ng/mL Crossmatch 06/26/19 06/26/19 Range/Units 06:55 08:33 WBC (3.8-10.6) k/uL RBC (4.30-5.90) m/uL Hgb (13.0-17.5) gm/dL Hct (39.0-53.0) % RDW (11.5-15.5) % Neutrophils # (Manual) (1.3-7.7) k/uL Metamyelocytes # (Man) (0) k/uL ABG pH (7.35-7.45) ABG pCO2 (35-45) mmHg ABG Total CO2 (19-24) mmol/L Chloride (98-107) mmol/L BUN (9-20) mg/dL Creatinine (0.66-1.25) mg/dL Glucose (74-99) mg/dL POC Glucose (mg/dL) 166 H 169 H (75-99) mg/dL Calcium (8.4-10.2) mg/dL Ionized Calcium Laney (4.5-5.3) mg/dL AST (17-59) U/L Total Protein (6.3-8.2) g/dL Albumin (3.5-5.0) g/dL Procalcitonin (0.02-0.09) ng/mL Crossmatch Microbiology - Last 24 Hours (Table) 06/23/19 22:20 Blood Culture - Preliminary Blood No Growth after 48 hours 06/23/19 22:09 Gram Stain - Preliminary Sputum Sputum Culture - Preliminary Presumptive Staph aureus 06/24/19 01:22 Urine Culture - Final Urine,Catheterized - Imaging and Cardiology Chest x-ray: report reviewed, image reviewed Assessment and Plan Assessment: 1. 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 History of [place] mediastinoscopy with lymph node biopsy 3. COPD with preoperative FEV1 82% of predicted 4. Remote history of tobacco dependence 5. Obstructive sleep apnea without home CPAP use 6. Home oxygen use as needed 7. Coronary artery disease with previous myocardial infarction and prior stenting 8. Hypertension, currently postoperative hypertension on IV pressors 9. Insulin dependent diabetes 10. Chronic kidney disease 11. Recent laminectomy with subsequent sepsis in March 2019 12. GERD 13. Postoperative pain, expected to continue thoracotomy incision 14. Postoperative paroxysmal atrial fibrillation, unexpected 15. Postoperative acute blood loss anemia, unexpected 16. Postoperative acute hypoxic respiratory failure requiring reintubation with mechanical ventilator support, unexpected, multifactorial 17. Postoperative fever, with leukocytosis and bandemia, sputum culture showing preliminary result of presumptive staph aureus Plan: 1. Continue right pleural chest tubes to continuous wall suction -20 cm H2O. Continue to monitor for resolution of air leak. 2. Continue bronchodilators, inhaled steroids per pulmonology management. 3. Mechanical ventilator setting management per pulmonary critical care medicine. 4. Continue norepinephrine, wean norepinephrine as tolerated, do not titrate up without checking with cardiothoracic surgery. 5. Will monitor daily labs and chest x-rays. Electrolyte replacement as necessary. 6. GI/DVT prophylaxis. 7. Continue Lopressor. Continue amiodarone 400 mg per G-tube twice a day for atrial fibrillation prophylaxis. 8. Pain control with current medication regimen. Avoid Toradol secondary to kidney function. Avoid nephrotoxic agents and avoid opioids. 9. Sputum culture results showing a pulmonary result of presumptive staph aureus. Send gallagher cultures as the patient's WBC count today is 31 with a positive bandemia. 10. Continue Mckeon for accurate intake and output. 11. Medical management and other comorbidities per primary care service. 12. Continue acetaminophen 1000 mg every 6 hours when necessary pain or fever per OG tube. 13. Surgical pathology remains pending. 14. More recommendations to follow based on patient's clinical course. Time with Patient: Greater than 30
[2019-06-26 14:18] LABS: Glucose,Whole Blood 212 mg/dL (75-99)
[2019-06-26 15:05] LABS: Glucose,Whole Blood 191 mg/dL (75-99)
[2019-06-26 16:16] LABS: Glucose,Whole Blood 196 mg/dL (75-99)
[2019-06-26] MEDS: INSULIN REGULAR 100 UNIT in SODIUM CHLORIDE 0.9% 100 ML IV SCH (16:16)
[2019-06-26 17:16] LABS: Glucose,Whole Blood 212 mg/dL (75-99)
[2019-06-26] MEDS: CHOLECALCIFEROL 1,000 UNIT TAB PO SCH (17:28)
[2019-06-26 18:08] LABS: Glucose,Whole Blood 208 mg/dL (75-99)
[2019-06-26 19:06] LABS: Glucose,Whole Blood 208 mg/dL (75-99)
[2019-06-26] MEDS: SENNOSIDES-DOCUSATE SODIUM 1 EACH TAB PO SCH (19:44)
[2019-06-26 20:11] LABS: Glucose,Whole Blood 205 mg/dL (75-99)
[2019-06-26 20:17] LABS: ABG HCO3 22 mmol/L (21-25); ABG Oxygen Saturation 94.6 % (94-97); ABG PCO2 43 mmHg (35-45); ABG PH 7.32 (7.35-7.45); ABG PO2 75 mmHg (83-108); ABG TCO2 24 mmol/L (19-24); Allen Test Performed? Yes
--- NOTE | 2019-06-26 20:30 | PN ---
PROGRESS NOTE SUBJECTIVE: This is an 83-year-old white male, status post bilobectomy for lung cancer. He still remains on the ventilator. Levophed has been increased to 22 mcg/minute, propofol from 10 to 20, insulin drip 4.5 units/hour. Temperature 99.3, heart rate around 100, respiratory rate 34, blood pressure 100s over 60s. CARDIOVASCULAR: Tachycardic. HEART: S1, S2. LUNGS: Breath sounds diminished on the right. No wheeze or crackles. ABDOMEN: Soft. Chest x-ray shows bilateral pleural effusions, larger on the right than the left. White count is up to 31,000, platelets 309,000. Sodium 143, potassium 4.1. BUN and creatinine are 44 and 1.95. Procalcitonin level is 24.7. Digoxin level was 1.2. Pulmonary recommends continuing with vancomycin and Zosyn. ASSESSMENT: 1. Squamous cell cancer of the lung. 2. Hypoxemic respiratory failure. 3. Staphylococcus aureus tracheobronchitis versus bronchopneumonia. 4. Subcutaneous emphysema. 5. Hypertension. 6. Coronary artery disease. 7. Sleep apnea. 8. Oxygen-dependent chronic obstructive pulmonary disease and congestive heart failure, diastolic in nature. Prognosis extremely guarded, as his white count is increasing and his norepinephrine requirement is increasing. Await infectious disease consult. MMODL / IJN: [id number] /
[2019-06-26 21:14] LABS: Glucose,Whole Blood 196 mg/dL (75-99)
[2019-06-26 22:03] LABS: Glucose,Whole Blood 187 mg/dL (75-99)
[2019-06-26 22:57] LABS: Glucose,Whole Blood 216 mg/dL (75-99)
--- NOTE | 2019-06-27 00:04 | P.CONS ---
History of Present Illness - Reason for Consult Consult date: 06/26/19 +sputum with MRSA Requesting physician: Severiano Becerra - Chief Complaint shortness of breath x few days - History of Present Illness Patient is 83-year male with a distant diagnosis of squamous cell carcinoma patient has been electively admitted to the hospital on 06/17/2019 and the patient is status post right thoracotomy and bilobectomy involving the right upper and right middle lobe by Dr. Finley patient seems to have problem with the significant postoperative pain requiring multiple pain medication patient did however need to respiratory distress and has to be reintubated on June 15, 2019 to protect his airways the patient has been running a low-grade fever postop day 100.3-100.2 subsequent did have a fever of 101 to 100.3 F on June 23 and June 24 patient did have blood culture obtained on June 17 and so far sputum were obtained which is currently showing staph aureus patient apparently has been adjusted to vancomycin and Zosyn as of yesterday patient has noticed to have a persistent worsening of his heart rates up to 31,000 today was 29,000 yesterday with a sputum representing MRSA that prompted infectious disease consultation patient also went into A. fib with RVR this morning requiring addition of metoprolol by cardiology as well as amiodarone which subsequently need for increasing his pressor support to maintain his blood pressure most information has been obtained from the review of the chart and talking to the nursing staff with the patient currently intubated on the vent is unable provide any history. Review of Systems Positive point has been mentioned in HPI complete review could not be obtained because of underlying mental status Past Medical History Past Medical History: COPD, Diabetes Mellitus, GERD/Reflux, Hypertension, Myocardial Infarction (VT), Renal Disease, Sleep Apnea/CPAP/BIPAP, Vascular Disorder Additional Past Medical History / Comment(s): NEUROPATHY FEET, decreased kidney function, uses CPAP Last Myocardial Infarction Date:: 2015 History of Any Multi-Drug Resistant Organisms: MRSA Year Discovered:: 02/07/19 MDRO Source:: MRSA BRONCH Past Surgical History: Heart Catheterization, Heart Catheterization With Stent, Tonsillectomy Additional Past Surgical History / Comment(s): EGD, COLONOSCOPY, sinus surg. x3, chest/lung biopsy, LAMINECTOMY Past Anesthesia/Blood Transfusion Reactions: No Reported Reaction Date of Last Stent Placement:: 2015 Smoking Status: Former smoker - Past Family History Father Family Medical History: Cancer, Myocardial Infarction (VT) Additional Family Medical History / Comment(s): Father had bone cancer. He at the age of 80yrs. Mother Family Medical History: AFIB, Myocardial Infarction (VT) Additional Family Medical History / Comment(s): Mother when she 82 years old and of a heart attack Medications and Allergies Home Medications Medication Instructions Recorded Confirmed Type Omeprazole [PriLOSEC] 20 mg PO DAILY@0600 06/11/14 06/21/19 History Simvastatin [Zocor] 40 mg PO HS 06/11/14 06/21/19 History Gabapentin [Neurontin] 300 mg PO QID 10/16/17 06/21/19 History Metoprolol Tartrate [Lopressor] 50 mg PO DAILY 10/16/17 06/21/19 History Albuterol Nebulized [Ventolin 2.5 mg INHALATION RT-QID PRN 11/02/18 06/21/19 History Nebulized] Cholecalciferol [Vitamin D3 (25 1,000 unit PO DAILY@1700 11/02/18 06/21/19 Hist ory Mcg = 1000 Iu)] INSULIN LISPRO (HumaLOG) [humaLOG] 30 units SQ TID-W/MEALS 11/03/18 06/21/19 History Acetaminophen Tab [Tylenol] 650 mg PO Q6HR PRN tab 04/06/19 06/21/19 Rx Bisacodyl [Dulcolax] 10 mg RECTAL DAILY PRN 04/19/19 06/21/19 History HYDROcodone/APAP 5-325MG [[place] 1 tab PO Q8HR PRN 04/19/19 06/21/19 History 5-325] Magnesium Hydroxide [Milk of 2,400 mg PO DAILY PRN 04/19/19 06/21/19 History Magnesia] Oxymetazoline 0.05% Nasl [place] 2 spray NASAL BID@0800,1700 04/19/19 06/21/19 History [Afrin 0.05% Nasal [place]] Tamsulosin HCl [Flomax] 0.4 mg PO HS 04/19/19 06/21/19 History Furosemide [Lasix] 20 mg PO DAILY 06/15/19 06/21/19 History Aspirin [Adult Low Dose Aspirin EC] 81 mg PO DAILY 06/21/19 06/21/19 History Allergies Allergy/AdvReac Type Severity Reaction Status Date / Time No Known Allergies Allergy Verified 06/21/19 07:20 Physical Exam Vitals: Vital Signs Temp Pulse Resp BP Pulse Ox 06/26/19 10:00 74 34 H 71/45 95 06/26/19 09:30 86 34 H 94/50 95 06/26/19 09:00 107 H 32 H 115/51 95 06/26/19 08:30 103 H 32 H 106/51 95 06/26/19 08:00 99.5 F 111 H 26 H 102/66 95 06/26/19 07:42 107 H 06/26/19 07:30 106 H 30 H 98/55 95 06/26/19 07:00 114 H 32 H 103/54 95 06/26/19 06:30 112 H 30 H 101/51 95 06/26/19 06:00 110 H 30 H 92/54 94 L 06/26/19 05:30 124 H 26 H 95/46 93 L 06/26/19 05:00 99.3 F 120 H 27 H 90/45 94 L 06/26/19 04:30 137 H 27 H 90/44 94 L 06/26/19 04:00 138 H 26 H 94/47 94 L 06/26/19 03:30 99.8 F H 130 H 27 H 101/54 95 06/26/19 03:18 122 H 06/26/19 03:00 122 H 28 H 95/48 93 L 06/26/19 02:59 118 H 06/26/19 02:30 121 H 26 H 96/47 89 L 06/26/19 02:00 108 H 26 H 106/51 91 L 06/26/19 01:30 110 H 24 101/53 91 L 06/26/19 01:00 107 H 23 100/46 93 L 06/26/19 00:30 105 H 23 95/48 93 L 06/26/19 00:23 103 H 23 95/48 93 L 06/26/19 00:12 98 06/26/19 00:02 101 H 06/26/19 00:00 100.8 F H 101 H 24 100/45 92 L 06/25/19 23:00 93 22 97/48 95 06/25/19 22:00 98 21 109/51 95 06/25/19 21:00 112 H 31 H 106/53 95 06/25/19 20:30 109 H 06/25/19 20:21 107 H 06/25/19 20:00 99.5 F 101 H 20 108/52 95 06/25/19 19:00 89 29 H 102/51 96 06/25/19 18:00 88 31 H 97/49 97 06/25/19 17:00 86 30 H 106/53 97 06/25/19 16:00 98.4 F 80 26 H 100/52 94 L 06/25/19 15:55 28 H 06/25/19 15:54 97 06/25/19 15:49 77 06/25/19 15:34 78 06/25/19 15:00 76 28 H 103/49 97 06/25/19 14:00 78 29 H 96/52 95 06/25/19 13:00 85 31 H 113/49 96 06/25/19 12:40 90 06/25/19 12:29 86 06/25/19 12:05 27 H 06/25/19 12:01 99.2 F 90 27 H 110/47 97 06/25/19 12:00 99.2 F 90 27 H 110/47 97 Intake and Output 06/25/19 06/26/19 06/26/19 22:59 06:59 14:59 Intake Total 1683.210 1620.876 629.493 Output Total 1685 515 230 Balance -241.489 9221.876 399.493 Intake: IV 379 324 138 Calcium Gluconate 1 gm In 100 Sodium Chloride 0.9% 100 ml @ 100 mls/hr IVPB ONCE ONE Rx#:[id number] Piperacillin-Tazobactam 3 50 .375 gm In Sodium Chloride 0.9% 100 ml @ 25 mls/hr IVPB Q12HR [facility] Rx #:[id number] Pressure bags 39 54 18 Sodium Chloride 0.9% 1, 240 270 70 000 ml @ 30 mls/hr IV . Q24H [facility] Rx#:[id number] Intake, IV Titration 769.530 6686.876 351.493 Amount Dextrose 5% in Water 100 100 ml @ 618 mls/hr IV .Q10M ONE with Amiodarone 150 mg Rx#:[id number] Insulin Regular 100 unit 45.550 40.889 16.059 In Sodium Chloride 0.9% 100 ml @ Per Protocol IV .Q0M [facility] Rx#:[id number] Magnesium Sulfate-D5w Pmx 200 1 gm In Dextrose/Water 1 100ml.bag @ 100 mls/hr IVPB Q1H [facility] Rx#: [id number] Norepinephrine 32 mg In 19.082 43.512 Sodium Chloride 0.9% 218 ml @ 0.05 MCG/KG/MIN 2. 634 mls/hr IV .Q24H [facility] Rx#:[id number] Norepinephrine 4 mg In 251.485 202.007 Sodium Chloride 0.9% 250 ml @ 0.05 MCG/KG/MIN 20. 955 mls/hr IV .Q12H8M [facility] Rx#:[id number] Piperacillin-Tazobactam 3 100 .375 gm In Sodium Chloride 0.9% 100 ml @ 25 mls/hr IVPB Q8HR [facility] Rx# :[id number] Propofol 1,000 mg In 74.409 92.898 91.922 Empty Bag 1 bag @ Titrate IV .Q0M [facility] Rx#: [id number] Vancomycin 1,750 mg In 500 Sodium Chloride 0.9% 500 ml 500 ml @ 167 mls/hr IVPB Q24H [facility] Rx#: [id number] Tube Feeding 240 340 120 Other 60 90 20 Output: Chest Tube Drainage 80 140 170 Right Lateral Chest 80 140 170 Urine 1605 375 60 Other: Voiding Method Indwelling Catheter Indwelling Catheter Weight 114.8 kg 114.8 kg ABP, PAP, CO, CI - Last 8 Hours Arterial Blood Pressure 86/40 GENERAL DESCRIPTION: Elderly male lying in bed intubated on the vent, no distress. No tachypnea or accessory muscle of respiration use. HEENT: Shows Pallor , no scleral icterus. Oral mucous membrane is dry. NECK: Trachea central, no thyromegaly. LUNGS: Unlabored breathing. Decreased breath sound at the base. No wheeze or crackle. Chest tube is mostly serous secretions currently sedated on the vent hEART: S1, S2, regular rate and rhythm. ABDOMEN: Soft, no tenderness , guarding or rigidity EXTREMITIES: No edema of feet. SKIN: No rash, no masses palpable. NEUROLOGICAL: The patient is awake, alert, oriented x3, mood and affect normal. Results CBC & Chem 7: 06/26/19 02:37 12/31/19 02:37 Labs: Abnormal Lab Results - Last 24 Hours (Table) 06/23/19 06/25/19 06/25/19 Range/Units 13:00 06:00 11:19 WBC (3.8-10.6) k/uL RBC (4.30-5.90) m/uL Hgb (13.0-17.5) gm/dL Hct (39.0-53.0) % RDW (11.5-15.5) % Neutrophils # (Manual) (1.3-7.7) k/uL Metamyelocytes # (Man) (0) k/uL ABG pH (7.35-7.45) ABG pCO2 (35-45) mmHg ABG pO2 (83-108) mmHg ABG Total CO2 (19-24) mmol/L ABG O2 Saturation (94-97) % Chloride (98-107) mmol/L BUN (9-20) mg/dL Creatinine (0.66-1.25) mg/dL Glucose (74-99) mg/dL POC Glucose (mg/dL) 173 H (75-99) mg/dL Calcium (8.4-10.2) mg/dL AST (17-59) U/L Total Protein (6.3-8.2) g/dL Albumin (3.5-5.0) g/dL Procalcitonin 24.70 H (0.02-0.09) ng/mL Crossmatch See Detail 06/25/19 06/25/19 06/25/19 Range/Units 13:00 13:10 15:15 WBC 29.0 H (3.8-10.6) k/uL RBC 3.01 L (4.30-5.90) m/uL Hgb 8.3 L (13.0-17.5) gm/dL Hct 26.1 L (39.0-53.0) % RDW 16.0 H (11.5-15.5) % Neutrophils # (Manual) (1.3-7.7) k/uL Metamyelocytes # (Man) (0) k/uL ABG pH (7.35-7.45) ABG pCO2 (35-45) mmHg ABG pO2 (83-108) mmHg ABG Total CO2 (19-24) mmol/L ABG O2 Saturation (94-97) % Chloride (98-107) mmol/L BUN (9-20) mg/dL Creatinine (0.66-1.25) mg/dL Glucose (74-99) mg/dL POC Glucose (mg/dL) 177 H 185 H (75-99) mg/dL Calcium (8.4-10.2) mg/dL AST (17-59) U/L Total Protein (6.3-8.2) g/dL Albumin (3.5-5.0) g/dL Procalcitonin (0.02-0.09) ng/mL Crossmatch 06/25/19 06/25/19 06/25/19 Range/Units 16:45 17:17 18:38 WBC (3.8-10.6) k/uL RBC (4.30-5.90) m/uL Hgb (13.0-17.5) gm/dL Hct (39.0-53.0) % RDW (11.5-15.5) % Neutrophils # (Manual) (1.3-7.7) k/uL Metamyelocytes # (Man) (0) k/uL ABG pH (7.35-7.45) ABG pCO2 (35-45) mmHg ABG pO2 (83-108) mmHg ABG Total CO2 (19-24) mmol/L ABG O2 Saturation (94-97) % Chloride (98-107) mmol/L BUN (9-20) mg/dL Creatinine (0.66-1.25) mg/dL Glucose (74-99) mg/dL POC Glucose (mg/dL) 218 H 223 H 194 H (75-99) mg/dL Calcium (8.4-10.2) mg/dL AST (17-59) U/L Total Protein (6.3-8.2) g/dL Albumin (3.5-5.0) g/dL Procalcitonin (0.02-0.09) ng/mL Crossmatch 06/25/19 06/25/19 06/25/19 Range/Units 19:12 19:55 21:18 WBC (3.8-10.6) k/uL RBC (4.30-5.90) m/uL Hgb (13.0-17.5) gm/dL Hct (39.0-53.0) % RDW (11.5-15.5) % Neutrophils # (Manual) (1.3-7.7) k/uL Metamyelocytes # (Man) (0) k/uL ABG pH (7.35-7.45) ABG pCO2 (35-45) mmHg ABG pO2 (83-108) mmHg ABG Total CO2 (19-24) mmol/L ABG O2 Saturation (94-97) % Chloride (98-107) mmol/L BUN (9-20) mg/dL Creatinine (0.66-1.25) mg/dL Glucose (74-99) mg/dL POC Glucose (mg/dL) 183 H 202 H 200 H (75-99) mg/dL Calcium (8.4-10.2) mg/dL AST (17-59) U/L Total Protein (6.3-8.2) g/dL Albumin (3.5-5.0) g/dL Procalcitonin (0.02-0.09) ng/mL Crossmatch 06/25/19 06/25/19 06/26/19 Range/Units 22:07 23:07 00:14 WBC (3.8-10.6) k/uL RBC (4.30-5.90) m/uL Hgb (13.0-17.5) gm/dL Hct (39.0-53.0) % RDW (11.5-15.5) % Neutrophils # (Manual) (1.3-7.7) k/uL Metamyelocytes # (Man) (0) k/uL ABG pH (7.35-7.45) ABG pCO2 (35-45) mmHg ABG pO2 (83-108) mmHg ABG Total CO2 (19-24) mmol/L ABG O2 Saturation (94-97) % Chloride (98-107) mmol/L BUN (9-20) mg/dL Creatinine (0.66-1.25) mg/dL Glucose (74-99) mg/dL POC Glucose (mg/dL) 197 H 191 H 170 H (75-99) mg/dL Calcium (8.4-10.2) mg/dL AST (17-59) U/L Total Protein (6.3-8.2) g/dL Albumin (3.5-5.0) g/dL Procalcitonin (0.02-0.09) ng/mL Crossmatch 06/26/19 06/26/19 06/26/19 Range/Units 01:06 02:05 02:37 WBC 31.3 H (3.8-10.6) k/uL RBC 3.10 L (4.30-5.90) m/uL Hgb 8.4 L (13.0-17.5) gm/dL Hct 27.0 L (39.0-53.0) % RDW 16.2 H (11.5-15.5) % Neutrophils # (Manual) 28.10 H (1.3-7.7) k/uL Metamyelocytes # (Man) 0.31 H (0) k/uL ABG pH (7.35-7.45) ABG pCO2 (35-45) mmHg ABG pO2 (83-108) mmHg ABG Total CO2 (19-24) mmol/L ABG O2 Saturation (94-97) % Chloride (98-107) mmol/L BUN (9-20) mg/dL Creatinine (0.66-1.25) mg/dL Glucose (74-99) mg/dL POC Glucose (mg/dL) 173 H 175 H (75-99) mg/dL Calcium (8.4-10.2) mg/dL AST (17-59) U/L Total Protein (6.3-8.2) g/dL Albumin (3.5-5.0) g/dL Procalcitonin (0.02-0.09) ng/mL Crossmatch 06/26/19 06/26/19 06/26/19 Range/Units 02:37 02:53 04:12 WBC (3.8-10.6) k/uL RBC (4.30-5.90) m/uL Hgb (13.0-17.5) gm/dL Hct (39.0-53.0) % RDW (11.5-15.5) % Neutrophils # (Manual) (1.3-7.7) k/uL Metamyelocytes # (Man) (0) k/uL ABG pH (7.35-7.45) ABG pCO2 (35-45) mmHg ABG pO2 (83-108) mmHg ABG Total CO2 (19-24) mmol/L ABG O2 Saturation (94-97) % Chloride 112 H (98-107) mmol/L BUN 44 H (9-20) mg/dL Creatinine 1.95 H (0.66-1.25) mg/dL Glucose 171 H (74-99) mg/dL POC Glucose (mg/dL) 181 H 166 H (75-99) mg/dL Calcium 7.1 L (8.4-10.2) mg/dL AST 63 H (17-59) U/L Total Protein 5.3 L (6.3-8.2) g/dL Albumin 2.2 L (3.5-5.0) g/dL Procalcitonin (0.02-0.09) ng/mL Crossmatch 06/26/19 06/26/19 06/26/19 Range/Units 04:44 05:02 06:15 WBC (3.8-10.6) k/uL RBC (4.30-5.90) m/uL Hgb (13.0-17.5) gm/dL Hct (39.0-53.0) % RDW (11.5-15.5) % Neutrophils # (Manual) (1.3-7.7) k/uL Metamyelocytes # (Man) (0) k/uL ABG pH 7.24 L (7.35-7.45) ABG pCO2 56 H (35-45) mmHg ABG pO2 (83-108) mmHg ABG Total CO2 25 H (19-24) mmol/L ABG O2 Saturation (94-97) % Chloride (98-107) mmol/L BUN (9-20) mg/dL Creatinine (0.66-1.25) mg/dL Glucose (74-99) mg/dL POC Glucose (mg/dL) 171 H 173 H (75-99) mg/dL Calcium (8.4-10.2) mg/dL AST (17-59) U/L Total Protein (6.3-8.2) g/dL Albumin (3.5-5.0) g/dL Procalcitonin (0.02-0.09) ng/mL Crossmatch 06/26/19 06/26/19 06/26/19 Range/Units 06:55 08:33 09:41 WBC (3.8-10.6) k/uL RBC (4.30-5.90) m/uL Hgb (13.0-17.5) gm/dL Hct (39.0-53.0) % RDW (11.5-15.5) % Neutrophils # (Manual) (1.3-7.7) k/uL Metamyelocytes # (Man) (0) k/uL ABG pH 7.28 L (7.35-7.45) ABG pCO2 46 H (35-45) mmHg ABG pO2 112 H (83-108) mmHg ABG Total CO2 (19-24) mmol/L ABG O2 Saturation 98.4 H (94-97) % Chloride (98-107) mmol/L BUN (9-20) mg/dL Creatinine (0.66-1.25) mg/dL Glucose (74-99) mg/dL POC Glucose (mg/dL) 166 H 169 H (75-99) mg/dL Calcium (8.4-10.2) mg/dL AST (17-59) U/L Total Protein (6.3-8.2) g/dL Albumin (3.5-5.0) g/dL Procalcitonin (0.02-0.09) ng/mL Crossmatch 06/26/19 Range/Units 10:27 WBC (3.8-10.6) k/uL RBC (4.30-5.90) m/uL Hgb (13.0-17.5) gm/dL Hct (39.0-53.0) % RDW (11.5-15.5) % Neutrophils # (Manual) (1.3-7.7) k/uL Metamyelocytes # (Man) (0) k/uL ABG pH (7.35-7.45) ABG pCO2 (35-45) mmHg ABG pO2 (83-108) mmHg ABG Total CO2 (19-24) mmol/L ABG O2 Saturation (94-97) % Chloride (98-107) mmol/L BUN (9-20) mg/dL Creatinine (0.66-1.25) mg/dL Glucose (74-99) mg/dL POC Glucose (mg/dL) 231 H (75-99) mg/dL Calcium (8.4-10.2) mg/dL AST (17-59) U/L Total Protein (6.3-8.2) g/dL Albumin (3.5-5.0) g/dL Procalcitonin (0.02-0.09) ng/mL Crossmatch Microbiology - Last 24 Hours (Table) 06/23/19 22:20 Blood Culture - Preliminary Blood No Growth after 48 hours 06/23/19 22:09 Gram Stain - Preliminary Sputum Sputum Culture - Preliminary Presumptive Staph aureus 06/24/19 01:22 Urine Culture - Final Urine,Catheterized Assessment and Plan Assessment: patient with fever and elevated white count this patient has been electively admitted hospital for VATS procedure with right upper and middle lobe lobectomy because of recent diagnosis of squamous cell carcinoma in this patient who has to be reintubated on June 23 because of worsening mentation and respiratory status with concern for possible aspiration pneumonitis in the sputum not representing MRSA likely responsible for the this episode of pneumonia. (1) Pneumonia Current Visit: Yes Status: Acute Code(s): J18.9 - PNEUMONIA, UNSPECIFIED ORGANISM SNOMED Code(s): 774242942 Plan: 1-vancomycin pharmacy to dose her with a target trough of 15 while watching her kidney function and Vanco trough closely. 2-discontinue Zosyn as no gram-negative has been grown and to decrease risk of nephrotoxicity We will follow on clinical condition and cultures to further adjust medication if needed Thank you for this consultation we will follow the patient along with you Family at the bedside questions were answered Time with Patient: Greater than 30
[2019-06-27 00:09] LABS: Glucose,Whole Blood 194 mg/dL (75-99)
[2019-06-27] MEDS: HEPARIN SODIUM,PORCINE 5,000 UNIT/ML 1 ML VIAL SQ SCH ×4 (00:28→23:30)
[2019-06-27 01:16] LABS: Glucose,Whole Blood 196 mg/dL (75-99)
[2019-06-27 03:16] LABS: Glucose,Whole Blood 193 mg/dL (75-99)
[2019-06-27] MEDS: IPRATROPIUM-ALBUTEROL 3 ML NEB IH SCH ×6 (03:28→23:44)
[2019-06-27 04:09] LABS: Glucose,Whole Blood 183 mg/dL (75-99)
[2019-06-27 05:01] LABS: Glucose,Whole Blood 178 mg/dL (75-99)
[2019-06-27 05:09] LABS: Anisocytosis Slight; HGB 7.7 gm/dL (13.0-17.5); Hypochromasia Marked; MCH 27.7 pg (25.0-35.0); MCHC 32.1 g/dL (31.0-37.0); MCV 86.4 fL (80.0-100.0); Mean Platelet Volume 8.9; Platelet Count 296 k/uL (150-450); Poikilocytosis Slight; RBC 2.77 m/uL (4.30-5.90); RDW 16.1 % (11.5-15.5); WBC 30.8 k/uL (3.8-10.6)
[2019-06-27] MEDS: PROPOFOL 1,000 MG in EMPTY BAG 1 BAG IV SCH ×2 (05:23→21:35)
[2019-06-27] MEDS: SODIUM CHLORIDE 0.9% 1,000 ML IV SCH ×2 (05:24→21:03)
[2019-06-27 05:25] LABS: ABG Base Excess -3.3 mmol/L; ABG HCO3 23 mmol/L (21-25); ABG Oxygen Saturation 93.4 % (94-97); ABG PCO2 42 mmHg (35-45); ABG PH 7.34 (7.35-7.45); ABG PO2 70 mmHg (83-108); ABG TCO2 24 mmol/L (19-24); Allen Test Performed? Yes
[2019-06-27] MEDS: VANCOMYCIN 1,750 MG in SODIUM CHLORIDE 0.9% 500 ML 500 ML IVPB SCH (05:26)
[2019-06-27 05:29] LABS: Band Neutrophils % 4 %; Lymphocytes # (M) 1.23 k/uL (1.0-4.8); Monocytes # (M) 0.92 k/uL (0-1.0); Neutrophils % (M) 89 %; Nucleated Red Blood Cells 0 /100 WBC (0-0); Total Cells Counted 100
[2019-06-27 05:30] LABS: Toxic Vacuolation Present
[2019-06-27 05:35] LABS: Albumin 2.2 g/dL (3.5-5.0); Calcium 6.8 mg/dL (8.4-10.2); Magnesium 2.2 mg/dL (1.6-2.3); Potassium 3.8 mmol/L (3.5-5.1); Total Bilirubin 0.6 mg/dL (0.2-1.3); Total Protein 5.2 g/dL (6.3-8.2)
[2019-06-27 06:06] LABS: Glucose,Whole Blood 162 mg/dL (75-99)
[2019-06-27] MEDS: INSULIN REGULAR 100 UNIT in SODIUM CHLORIDE 0.9% 100 ML IV SCH ×2 (06:08→22:18)
[2019-06-27] MEDS: NOREPINEPHRINE 32 MG in SODIUM CHLORIDE 0.9% 218 ML IV SCH (06:33)
[2019-06-27] MEDS ORDERED: POTASSIUM BICARBONATE/CIT AC 20 MEQ TABLET.EFF PO ONE (06:37)
[2019-06-27] MEDS ORDERED: CALCIUM GLUCONATE 2 GM in SODIUM CHLORIDE 0.9% 100 ML IVPB ONE (06:41)
[2019-06-27 07:04] LABS: Glucose,Whole Blood 180 mg/dL (75-99)
--- NOTE | 2019-06-27 07:46 | XR ---
EXAMINATION TYPE: XR chest 1V portable DATE OF EXAM: 06/27/2019 COMPARISON: 06/26/2019 INDICATION: Tube placement TECHNIQUE: Single frontal view of the chest is obtained. FINDINGS: The heart size is normal. The pulmonary vasculature is normal. There is a small to moderate right pleural effusion. There is a right-sided chest tube present. No pneumothorax is evident. Endotracheal tube is present w ith the tip 2.2 cm above the radha. Right central venous catheter is present with the tip in the rig ht atrium. Nasogastric tube transverses the thorax tip in the left upper quadrant of the abdomen. IMPRESSION: 1. Small to moderate right pleural effusion, stable. 2. Multiple lines and catheters discussed above.
[2019-06-27 08:10] LABS: Glucose,Whole Blood 167 mg/dL (75-99)
[2019-06-27] MEDS: BUDESONIDE 0.5 MG/2 ML NEBU INHALATION SCH ×2 (08:21→19:28)
[2019-06-27] MEDS: PANTOPRAZOLE 40 MG/10 ML VIAL IVP SCH (09:07)
[2019-06-27] MEDS: CHLORHEXIDINE GLUCONATE 15 ML CUP MUCOUS MEM SCH ×2 (09:09→21:01)
[2019-06-27] MEDS: METOPROLOL TARTRATE 25 MG TAB PO SCH ×2 (09:09→21:01)
[2019-06-27] MEDS: ATORVASTATIN 40 MG TAB PO SCH (09:09)
[2019-06-27] MEDS: ASPIRIN 81 MG PO SCH (09:09)
[2019-06-27] MEDS: AMIODARONE 200 MG TAB OG-TUBE SCH ×2 (09:09→21:01)
[2019-06-27] MEDS: ACETAMINOPHEN TAB 500 MG TAB OG-TUBE PRN ×3 (09:10→23:30)
[2019-06-27 09:38] LABS: Glucose,Whole Blood 173 mg/dL (75-99)
[2019-06-27] MEDS: BISACODYL 10 MG SUPP RECTAL SCH (09:42)
--- NOTE | 2019-06-27 10:12 | P.PN ---
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 Previous medical history of [place] mediastinoscopy with lymph node biopsy, COPD with preoperative FEV1 82% of predicted, previous tobacco dependence, obstructive sleep apnea without home CPAP use, as needed home oxygen use, coronary artery disease with myocardial infarction and prior stenting, hypertension, insulin-dependent diabetes, chronic kidney disease, and recent laminectomy with subsequent sepsis. POD #6 right VATS thoracoscopy, right thoracotomy, right bi-lobectomy with mediastinal lymph node dissection (right upper and right middle lobe) Postoperative hypotension, unexpected, possible volume loss Postoperative paroxysmal atrial fibrillation, unexpected outcome Postoperative acute blood loss anemia, unexpected outcome Postoperative acute hypoxic respiratory failure requiring intubation and mechanical ventilator support, unexpected, multifactorial Postoperative acute tracheobronchitis versus pneumonia, sputum culture positive for MRSA, unexpected although patient did have MRSA in his bronchial washings after his January 2019 bronchoalveolar lavage The patient is currently laying in bed in the intensive care unit in no acute distress. Remains in sinus rhythm to sinus tach. Currently on IV levo, propofol, insulin. T-max in the last 24 hours 99.6F. Sputum culture positive for MRSA, infectious disease consulted, remains on IV vancomycin. Ventilator adjustments continue to be made by pulmonology per ABG results, patient continues to reason over the vent slightly. Tube feeding infusing at goal. There continues to be air leak from the right pleural chest tube. Urine output has picked up overnight. Objective - Vital Signs Vital signs: Vital Signs Temp 98.7 F 06/27/19 06:00 Pulse 98 06/27/19 07:00 Resp 37 H 06/27/19 07:00 BP 109/57 06/27/19 07:00 Pulse Ox 91 L 06/27/19 07:00 Intake & Output 06/26/19 06/27/19 06/27/19 18:59 06:59 18:59 Intake Total 2545.905 1977.917 97.346 Output Total 415 607 70 Balance 2130.905 1370.917 27.346 Weight 114.8 kg 117.3 kg Intake: IV 421 432 36 Piperacillin-Tazobactam 3 75 .375 gm In Sodium Chloride 0.9% 100 ml @ 25 mls/hr IVPB Q12HR [facility] Rx #:[id number] Pressure bags 66 72 6 Sodium Chloride 0.9% 1, 280 360 30 000 ml @ 30 mls/hr IV . Q24H [facility] Rx#:[id number] Intake, IV Titration 1539.905 735.917 6.346 Amount Albumin Human 5% 250 ml 250 In Empty Bag 1 bag @ 250 mls/hr IVPB ONCE [facility] Rx#: [id number] Insulin Regular 100 unit 63.377 88.973 6.346 In Sodium Chloride 0.9% 100 ml @ Per Protocol IV .Q0M [facility] Rx#:[id number] Magnesium Sulfate-D5w Pmx 200 1 gm In Dextrose/Water 1 100ml.bag @ 100 mls/hr IVPB Q1H [facility] Rx#: [id number] Norepinephrine 32 mg In 152.462 79.088 Sodium Chloride 0.9% 218 ml @ 0.05 MCG/KG/MIN 2. 634 mls/hr IV .Q24H [facility] Rx#:[id number] Propofol 1,000 mg In 124.066 67.856 Empty Bag 1 bag @ Titrate IV .Q0M [facility] Rx#: [id number] Sodium Chloride 0.9% 1, 750 000 ml @ 999 mls/hr IV . Q1H1M [facility] Rx#:[id number] Vancomycin 1,750 mg In 500 Sodium Chloride 0.9% 500 ml 500 ml @ 167 mls/hr IVPB Q24H [facility] Rx#: [id number] Oral 60 Tube Feeding 505 660 55 Other 80 90 Output: Chest Tube Drainage 210 75 20 Right Lateral Chest 210 75 20 Urine 205 532 50 Other: Voiding Method Indwelling Catheter Indwelling Catheter ABP, PAP, CO, CI - Last Documented Arterial Blood Pressure 111/42 - Constitutional Constitutional Comment(s): Currently sedated on mechanical ventilation General appearance: Present: no acute distress, obese - Respiratory Details: Lungs sounds diminished bilaterally with coarse breath sounds in the bases, right greater than left, faint inspiratory wheeze heard on the right side. R espirations slightly taccypneic, patient breathing over the vent at 37-38 breaths per minute. Current ventilator settings VC+ mode, FiO2 40%, tidal volume 450, respiratory rate 36, PEEP 5, inspiratory time 0.8. ABGs this morning on those ventilator settings 7.34/42/70/23/93%/-3.3. 8.0 ET tube pre sent, 26 at the lip. Right pleural chest tubes present, connected to continuous wall suction, 75 mL of thin serosanguineous drainage overnight, 210 mL in the last 24 hours, continuous air leak present. - Cardiovascular Details: S1, S2 present. Tachycardic but regular rate and rhythm, sinus tach on telemetry. Palpable peripheral pulses bilaterally. Trace edema present to left upper extremity. SCDs present. Left radial arterial line, right internal ju gular triple-lumen central line present. - Gastrointestinal Gastrointestinal Comment(s): Abdomen soft, nondistended but round. Hypoactive bowel sounds present 4 quadrants. Tube feeding infusing at 55 mL per hour which is goal, minimal residual per nursing. No bowel movement since surgery. - Genitourinary Genitourinary Comment(s): Mckeon present draining clear, yellow urine. Output picked up overnight, 35-70 mL per hour. - Integumentary Integumentary Comment(s): Skin is warm and dry. Right pleural chest tube sites covered with dry intact dressing. Right lateral chest wall incisions well approximated and covered with dry intact dressing. - Neurologic Neurologic Comment(s): Currently sedated with propofol - Allied health notes Allied health notes reviewed: nursing - Labs CBC & Chem 7: 06/27/19 05:00 06/27/19 05:00 Labs: Abnormal Lab Results - Last 24 Hours (Table) 06/26/19 06/26/19 06/26/19 Range/Units 08:33 09:41 10:27 WBC (3.8-10.6) k/uL RBC (4.30-5.90) m/uL Hgb (13.0-17.5) gm/dL Hct (39.0-53.0) % RDW (11.5-15.5) % Neutrophils # (Manual) (1.3-7.7) k/uL ABG pH 7.28 L (7.35-7.45) ABG pCO2 46 H (35-45) mmHg ABG pO2 112 H (83-108) mmHg ABG O2 Saturation 98.4 H (94-97) % Sodium (137-145) mmol/L Chloride (98-107) mmol/L BUN (9-20) mg/dL Creatinine (0.66-1.25) mg/dL Glucose (74-99) mg/dL POC Glucose (mg/dL) 169 H 231 H (75-99) mg/dL Calcium (8.4-10.2) mg/dL Ionized Calcium Laney (4.5-5.3) mg/dL AST (17-59) U/L Total Protein (6.3-8.2) g/dL Albumin (3.5-5.0) g/dL 06/26/19 06/26/19 06/26/19 Range/Units 11:09 12:15 13:04 WBC (3.8-10.6) k/uL RBC (4.30-5.90) m/uL Hgb (13.0-17.5) gm/dL Hct (39.0-53.0) % RDW (11.5-15.5) % Neutrophils # (Manual) (1.3-7.7) k/uL ABG pH (7.35-7.45) ABG pCO2 (35-45) mmHg ABG pO2 (83-108) mmHg ABG O2 Saturation (94-97) % Sodium (137-145) mmol/L Chloride (98-107) mmol/L BUN (9-20) mg/dL Creatinine (0.66-1.25) mg/dL Glucose (74-99) mg/dL POC Glucose (mg/dL) 219 H 179 H 177 H (75-99) mg/dL Calcium (8.4-10.2) mg/dL Ionized Calcium Laney (4.5-5.3) mg/dL AST (17-59) U/L Total Protein (6.3-8.2) g/dL Albumin (3.5-5.0) g/dL 06/26/19 06/26/19 06/26/19 Range/Units 14:17 15:03 16:13 WBC (3.8-10.6) k/uL RBC (4.30-5.90) m/uL Hgb (13.0-17.5) gm/dL Hct (39.0-53.0) % RDW (11.5-15.5) % Neutrophils # (Manual) (1.3-7.7) k/uL ABG pH (7.35-7.45) ABG pCO2 (35-45) mmHg ABG pO2 (83-108) mmHg ABG O2 Saturation (94-97) % Sodium (137-145) mmol/L Chloride (98-107) mmol/L BUN (9-20) mg/dL Creatinine (0.66-1.25) mg/dL Glucose (74-99) mg/dL POC Glucose (mg/dL) 212 H 191 H 196 H (75-99) mg/dL Calcium (8.4-10.2) mg/dL Ionized Calcium Laney (4.5-5.3) mg/dL AST (17-59) U/L Total Protein (6.3-8.2) g/dL Albumin (3.5-5.0) g/dL 06/26/19 06/26/19 06/26/19 Range/Units 17:14 18:07 19:04 WBC (3.8-10.6) k/uL RBC (4.30-5.90) m/uL Hgb (13.0-17.5) gm/dL Hct (39.0-53.0) % RDW (11.5-15.5) % Neutrophils # (Manual) (1.3-7.7) k/uL ABG pH (7.35-7.45) ABG pCO2 (35-45) mmHg ABG pO2 (83-108) mmHg ABG O2 Saturation (94-97) % Sodium (137-145) mmol/L Chloride (98-107) mmol/L BUN (9-20) mg/dL Creatinine (0.66-1.25) mg/dL Glucose (74-99) mg/dL POC Glucose (mg/dL) 212 H 208 H 208 H (75-99) mg/dL Calcium (8.4-10.2) mg/dL Ionized Calcium Laney (4.5-5.3) mg/dL AST (17-59) U/L Total Protein (6.3-8.2) g/dL Albumin (3.5-5.0) g/dL 06/26/19 06/26/19 06/26/19 Range/Units 20:10 20:12 21:13 WBC (3.8-10.6) k/uL RBC (4.30-5.90) m/uL Hgb (13.0-17.5) gm/dL Hct (39.0-53.0) % RDW (11.5-15.5) % Neutrophils # (Manual) (1.3-7.7) k/uL ABG pH 7.32 L (7.35-7.45) ABG pCO2 (35-45) mmHg ABG pO2 75 L (83-108) mmHg ABG O2 Saturation (94-97) % Sodium (137-145) mmol/L Chloride (98-107) mmol/L BUN (9-20) mg/dL Creatinine (0.66-1.25) mg/dL Glucose (74-99) mg/dL POC Glucose (mg/dL) 205 H 196 H (75-99) mg/dL Calcium (8.4-10.2) mg/dL Ionized Calcium Laney (4.5-5.3) mg/dL AST (17-59) U/L Total Protein (6.3-8.2) g/dL Albumin (3.5-5.0) g/dL 06/26/19 06/26/19 06/27/19 Range/Units 22:01 22:55 00:08 WBC (3.8-10.6) k/uL RBC (4.30-5.90) m/uL Hgb (13.0-17.5) gm/dL Hct (39.0-53.0) % RDW (11.5-15.5) % Neutrophils # (Manual) (1.3-7.7) k/uL ABG pH (7.35-7.45) ABG pCO2 (35-45) mmHg ABG pO2 (83-108) mmHg ABG O2 Saturation (94-97) % Sodium (137-145) mmol/L Chloride (98-107) mmol/L BUN (9-20) mg/dL Creatinine (0.66-1.25) mg/dL Glucose (74-99) mg/dL POC Glucose (mg/dL) 187 H 216 H 194 H (75-99) mg/dL Calcium (8.4-10.2) mg/dL Ionized Calcium Laney (4.5-5.3) mg/dL AST (17-59) U/L Total Protein (6.3-8.2) g/dL Albumin (3.5-5.0) g/dL 06/27/19 06/27/1920 Range/Units 01:14 03:14 04:07 WBC (3.8-10.6) k/uL RBC (4.30-5.90) m/uL Hgb (13.0-17.5) gm/dL Hct (39.0-53.0) % RDW (11.5-15.5) % Neutrophils # (Manual) (1.3-7.7) k/uL ABG pH (7.35-7.45) ABG pCO2 (35-45) mmHg ABG pO2 (83-108) mmHg ABG O2 Saturation (94-97) % Sodium (137-145) mmol/L Chloride (98-107) mmol/L BUN (9-20) mg/dL Creatinine (0.66-1.25) mg/dL Glucose (74-99) mg/dL POC Glucose (mg/dL) 196 H 193 H 183 H (75-99) mg/dL Calcium (8.4-10.2) mg/dL Ionized Calcium Laney (4.5-5.3) mg/dL AST (17-59) U/L Total Protein (6.3-8.2) g/dL Albumin (3.5-5.0) g/dL 06/27/19 06/27/19 06/27/19 Range/Units 04:58 05:00 05:00 WBC 30.8 H (3.8-10.6) k/uL RBC 2.77 L (4.30-5.90) m/uL Hgb 7.7 L (13.0-17.5) gm/dL Hct 24.0 L (39.0-53.0) % RDW 16.1 H (11.5-15.5) % Neutrophils # (Manual) 28.60 H (1.3-7.7) k/uL ABG pH (7.35-7.45) ABG pCO2 (35-45) mmHg ABG pO2 (83-108) mmHg ABG O2 Saturation (94-97) % Sodium 146 H (137-145) mmol/L Chloride 112 H (98-107) mmol/L BUN 55 H (9-20) mg/dL Creatinine 2.24 H (0.66-1.25) mg/dL Glucose 167 H (74-99) mg/dL POC Glucose (mg/dL) 178 H (75-99) mg/dL Calcium 6.8 L (8.4-10.2) mg/dL Ionized Calcium Laney (4.5-5.3) mg/dL AST 89 H (17-59) U/L Total Protein 5.2 L (6.3-8.2) g/dL Albumin 2.2 L (3.5-5.0) g/dL 06/27/19 06/27/19 06/27/19 Range/Units 05:00 05:19 06:05 WBC (3.8-10.6) k/uL RBC (4.30-5.90) m/uL Hgb (13.0-17.5) gm/dL Hct (39.0-53.0) % RDW (11.5-15.5) % Neutrophils # (Manual) (1.3-7.7) k/uL ABG pH 7.34 L (7.35-7.45) ABG pCO2 (35-45) mmHg ABG pO2 70 L (83-108) mmHg ABG O2 Saturation 93.4 L (94-97) % Sodium (137-145) mmol/L Chloride (98-107) mmol/L BUN (9-20) mg/dL Creatinine (0.66-1.25) mg/dL Glucose (74-99) mg/dL POC Glucose (mg/dL) 162 H (75-99) mg/dL Calcium (8.4-10.2) mg/dL Ionized Calcium Laney 4.2 L (4.5-5.3) mg/dL AST (17-59) U/L Total Protein (6.3-8.2) g/dL Albumin (3.5-5.0) g/dL 06/27/19 Range/Units 07:03 WBC (3.8-10.6) k/uL RBC (4.30-5.90) m/uL Hgb (13.0-17.5) gm/dL Hct (39.0-53.0) % RDW (11.5-15.5) % Neutrophils # (Manual) (1.3-7.7) k/uL ABG pH (7.35-7.45) ABG pCO2 (35-45) mmHg ABG pO2 (83-108) mmHg ABG O2 Saturation (94-97) % Sodium (137-145) mmol/L Chloride (98-107) mmol/L BUN (9-20) mg/dL Creatinine (0.66-1.25) mg/dL Glucose (74-99) mg/dL POC Glucose (mg/dL) 180 H (75-99) mg/dL Calcium (8.4-10.2) mg/dL Ionized Calcium Laney (4.5-5.3) mg/dL AST (17-59) U/L Total Protein (6.3-8.2) g/dL Albumin (3.5-5.0) g/dL Microbiology - Last 24 Hours (Table) 06/23/19 22:20 Blood Culture - Preliminary Blood No Growth after 72 hours 06/26/19 09:00 Urine Culture - Preliminary Urine,Catheterized 06/23/19 22:09 Gram Stain - Final Sputum Sputum Culture - Final Methicillin resist S. aureus - Imaging and Cardiology Chest x-ray: report reviewed, image reviewed Assessment and Plan Assessment: 1. 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 History of [place] mediastinoscopy with lymph node biopsy 3. COPD with preoperative FEV1 82% of predicted 4. Previous tobacco dependence 5. Obstructive sleep apnea without home CPAP use 6. Home oxygen use as needed 7. Coronary artery disease with previous myocardial infarction and prior stenting 8. Hypertension, currently hypotensive on IV pressors 9. Insulin dependent diabetes 10. Chronic kidney disease 11. MRSA present in bronchial washings from January 2019 bronchoalveolar lavage, treated with antibiotics 12. Recent laminectomy with subsequent sepsis 13. Postoperative paroxysmal atrial fibrillation 14. Postoperative acute blood loss anemia 15. Postoperative acute hypoxic respiratory failure requiring intubation and mechanical ventilator support 16. Postoperative acute tracheobronchitis versus pneumonia, sputum culture positive for MRSA Plan: 1. Continue right pleural chest tubes to continuous wall suction. Monitor for resolution of air leak. Surgical pathology consistent with stage IIIa invasive moderately differentiated keratinizing squamous cell carcinoma. 2. Mechanical ventilator management per pulmonology. Propofol as necessary for sedation while mechanically ventilated. 3. Continue bronchodilators, inhaled steroids per pulmonology 4. Continue levo, wean as tolerated, do not titrate up unless cleared by cardiothoracic surgery 5. Will monitor daily labs and x-rays. Electrolyte replacement as necessary, calcium and potassium replaced this morning 6. GI/DVT prophylaxis 7. Continue IV vancomycin per infectious disease recommendations 8. Continue Lopressor for tachycardia. Continue amiodarone for A. fib prophylaxis. 9. Pain control with current medication regimen. Avoid Toradol, avoid opioids 10. Continue Mckeon for another 24 hours for strict accurate intake and output. 11. Dulcolax suppository daily until bowel movement. 12. Insulin management per primary care service. 13. More recommendations to follow. Time with Patient: Greater than 30
[2019-06-27 10:25] LABS: Glucose,Whole Blood 159 mg/dL (75-99)
[2019-06-27] MEDS ORDERED: FUROSEMIDE 10 MG/ML 2 ML VIAL IV ONE (10:26)
[2019-06-27] MEDS ORDERED: MAGNESIUM HYDROXIDE 2,400 MG/10 ML CUP PO ONE (10:26)
[2019-06-27 11:07] LABS: Glucose,Whole Blood 161 mg/dL (75-99)
--- NOTE | 2019-06-27 12:04 | PN ---
PROGRESS NOTE PULMONARY/CRITICAL CARE PROGRESS NOTE: DATE OF SERVICE: June 27, 2019. HISTORY: This is an 83-year-old male admitted back on June 21. He underwent a right thoracotomy and bilobectomy involving right upper lobe/right middle lobe by Dr. Finley for lung cancer. He was previously diagnosed as having squamous cell carcinoma by Dr. Dawson on electromagnetic navigational bronchoscopy. The patient was thought to have stage IIB squamous cell carcinoma and hence the bilobectomy. The patient initially did well in the recovery area, but unfortunately because of mental status changes and impending respiratory failure, the patient was intubated on June 23. Anyway, the patient has been on the ventilator since. He is on the VC plus mode also referred to pressure regulated volume control. Respiratory rate 36, tidal volume 450, inspiratory time or TI is 0.8, FiO2 of 40%, PEEP of 5. Blood gases today show pO2 of 70, pCO2 42, and a pH of 7.33. I am happy with those blood gases. The mild acidosis shifts the oxyhemoglobin curve to the right, causing hemoglobin to be less tightly bound oxygen making oxygen more available at the tissue level. He is on saline IV at 30 mL an hour, insulin drip at 7.5 units an hour, norepinephrine at 3 mcg/minute Diprivan is currently on hold, but will be restarted and he is on Vital high-protein at 55 with a goal of 65 mL an hour. The patient is doing better from my perspective. Not quite ready for extubation. Chest x-ray still shows some postsurgical changes in the right chest with some right-sided infiltrates and right-sided pleural effusion. Hemoglobin is a bit down. Carlene will discuss with cardiothoracic surgery as to whether or not they want to give him a unit of blood. His Levophed yesterday was at 22 mcg/minutes so it has come down very nicely. PHYSICAL EXAMINATION: VITAL SIGNS: Current vital signs are reviewed. His temperature is 99.6, heart rate 100. Respiratory rate 36, blood pressure 108/53, mean 71, CVP is 15 and saturations are mid 90s on the 40% 5 of PEEP. GENERAL: Appears in no acute distress. Currently synchronous with the ventilator. HEENT examination is grossly unremarkable. The oral endotracheal tube and NG tube are noted. NECK: Supple. Full range of motion. No adenopathy. Neck veins are flat. CARDIOVASCULAR examination reveals a regular rhythm and rate. Heart rate is 105 beats per minute. S1, S2 normal. Heart sounds are distant. LUNGS: Reveal diminished breath sounds throughout but mostly so on the right side. There is diffuse rhonchi and wheezes. Breath sounds are diminished. ABDOMEN: Soft. Bowel sounds are heard. EXTREMITIES are intact. Minimal edema. SKIN: Without rash. NEUROLOGIC: Examination is difficult to assess given his current level of sedation. He likely will be placed back on propofol at either 10-20 mics per minute. Microbiology showing methicillin-resistant Staph aureus in the sputum. This is from June 23. Currently being treated. A chest x-ray has been reviewed as mentioned above. Medications are reviewed. His antibiotics include vancomycin and vancomycin as mono therapy. CURRENT LABS: Reviewed. His white count 30.8, hemoglobin 7.7, hematocrit 24, platelet count 396,000 sodium 146, potassium 3.8, chloride 112, CO2 22, anion gap is 12. BUN and creatinine were 55 and 2.24, up from 44 and 1.95. Procalcitonin level is high. ASSESSMENT: 1. Postoperative day #6, status post video-assisted thoracoscopic right thoracotomy, right bilobectomy including right upper lobe/right middle lobe as well as mediastinal lymph node dissection. 2. 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 3. Postoperative hypoxemic respiratory failure, possibly secondary to narcotic induced hypoventilation, with possible nosocomial pneumonia/MRSA, and possible diastolic congestive heart failure. 4. Routine postoperative ventilator management. 5. 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 6. Postoperative atrial fibrillation with RVR. 7. Postoperative anemia. 8. Routine postoperative ventilator management. 9. Postoperative subcutaneous emphysema. 10.Methicillin-resistant Staph aureus, tracheobronchitis versus bronchopneumonia, currently on vancomycin. 11.History of chronic obstructive pulmonary disease, mild, with an FEV 1% of 82. 12.History of laminectomy with decompression at L3, L4 in March 2019. 13.History of mediastinoscopy with lymph node dissection, February 2019. 14.History of type 2 diabetes mellitus with diabetic neuropathy. 15.Benign essential hypertension. 16.History of coronary artery disease with previous myocardial infarction. 17.History of sleep apnea syndrome. 18.History of gastroesophageal reflux disease. PLAN: The patient may be maintained on the ventilator. He is not ready for weaning. We will increase the Diprivan back up to 10-20 mics per kg per minute. The norepinephrine dose has come down nicely from 22-3 mcg/minute. He continues on tube feeds with Vital high- protein at 55 which is goal. His insulin is running at 7.5 units an hour. His arterial blood gases show very mild metabolic acidosis. He seems to be tolerating pressure regulated volume control or VC plus ventilation better than volume assist- control. Chest x-rays reviewed. Case discussed with Cardiothoracic. No additional recommendations are made. Prognosis is guarded. Critical care time 33 minutes. MMODL / IJN: [id number] / [email or web address]
[2019-06-27 12:12] LABS: Glucose,Whole Blood 181 mg/dL (75-99)
[2019-06-27 13:14] LABS: Glucose,Whole Blood 193 mg/dL (75-99)
[2019-06-27 14:14] LABS: Glucose,Whole Blood 178 mg/dL (75-99)
[2019-06-27 15:48] LABS: Glucose,Whole Blood 161 mg/dL (75-99)
[2019-06-27 16:05] LABS: ABG Base Excess -3.3 mmol/L; ABG HCO3 23 mmol/L (21-25); ABG Oxygen Saturation 94.4 % (94-97); ABG PCO2 49 mmHg (35-45); ABG PH 7.29 (7.35-7.45); ABG PO2 78 mmHg (83-108); ABG TCO2 25 mmol/L (19-24); Allen Test Performed? Yes
[2019-06-27] MEDS: CHOLECALCIFEROL 1,000 UNIT TAB PO SCH (16:35)
--- NOTE | 2019-06-27 16:45 | XR ---
EXAMINATION TYPE: XR chest 1V portable DATE OF EXAM: 06/27/2019 COMPARISON: Today HISTORY: Hypoxemia TECHNIQUE: Single view FINDINGS: Endotracheal tube is 7 mm from the radha. There is a right chest tube with the tip at the right lung apex. There is consolidation and pleural fluid with significant opacification right hemith orax. There is blunting left costophrenic angle. There is right central venous catheter with the tip in the right atrium. There are chest leads. IMPRESSION: Right pulmonary consolidation and pleural fluid unchanged. Left pleural effusion unchange d. Pulmonary edema and infiltrates. This could be congestive heart failure or RDS. Endotracheal tube is low and should BE pulled back 3 cm.
[2019-06-27 16:50] LABS: Glucose,Whole Blood 174 mg/dL (75-99)
[2019-06-27] MEDS ORDERED: ANIDULAFUNGIN 200 MG in SODIUM CHLORIDE 0.9% 200 ML IVPB ONE (17:00)
[2019-06-27 17:07] LABS: Anisocytosis Slight; HGB 8.3 gm/dL (13.0-17.5); Hypochromasia Slight; MCH 26.4 pg (25.0-35.0); MCHC 30.6 g/dL (31.0-37.0); MCV 86.6 fL (80.0-100.0); Mean Platelet Volume 8.8; Platelet Count 284 k/uL (150-450); Poikilocytosis Slight; RBC 3.12 m/uL (4.30-5.90); RDW 16.6 % (11.5-15.5); WBC 30.5 k/uL (3.8-10.6)
[2019-06-27 17:16] LABS: Band Neutrophils % 8 %; Lymphocytes # (M) 0.61 k/uL (1.0-4.8); Monocytes # (M) 0.92 k/uL (0-1.0); Neutrophils % (M) 87 %; Nucleated Red Blood Cells 0 /100 WBC (0-0); Total Cells Counted 100
[2019-06-27 17:18] LABS: Polychromasia Present
--- NOTE | 2019-06-27 17:26 | PN ---
PROGRESS NOTE 83-year-old white male remains on the ventilator, status post thoracotomy, bilobectomy, right upper, right middle lobe by Dr. Finley. Doing a little bit better than yesterday. He has some right pleural effusions. Right-sided infiltrate, seen by Infectious Disease who has kept him on vancomycin and is monitoring his white count. Levophed has been decreased on him. He is on insulin drip, Diprivan also. Temp 99, heart rate near 100, respiratory rate 30-36, CVP 15. Sats are in the mid 90s, 40%, 5 of PEEP. CARDIOVASCULAR: S1, S2. LUNGS diminished breath sounds. ABDOMEN is soft. NEURO is sedated. Chest x-ray shows pleural effusion. White count 30.8, hemoglobin is 7.7, platelet count is 396,000. Sodium 146, potassium 3.8, BUN 55 and 2.24. Procalcitonin is high. IMPRESSION AND PLAN: 1. Day six right thoracotomy, right bilobectomy for squamous cell lung carcinoma. 2. He is being treated with vancomycin for possible MRSA pneumonia. Cultures are pending. 3. We will monitor white count. 4. Try to wean off the vent. 5. Wean down on vasopressors. 6. Continue tube feeding. 7. Insulin drip. Prognosis guarded. MMODL / IJN: [id number] /
[2019-06-27 18:07] LABS: Glucose,Whole Blood 173 mg/dL (75-99)
[2019-06-27] MEDS ORDERED: DIGOXIN 250 MCG/ML 2 ML AMP IVP STA (18:36)
[2019-06-27] MEDS: DEXTROSE/WATER 1 250ML.BAG with DOPamine DRIP 800 MG IV SCH (19:52)
[2019-06-27 20:15] LABS: Glucose,Whole Blood 180 mg/dL (75-99)
[2019-06-27] MEDS: SENNOSIDES-DOCUSATE SODIUM 1 EACH TAB PO SCH (21:01)
[2019-06-27 21:26] LABS: Glucose,Whole Blood 167 mg/dL (75-99)
[2019-06-27 21:59] LABS: Glucose,Whole Blood 163 mg/dL (75-99)
--- NOTE | 2019-06-27 22:03 | PN ---
PROGRESS NOTE DATE OF SERVICE: 06/27/2019 REASON FOR FOLLOW UP: MRSA pneumonia. INTERVAL HISTORY: The patient is currently afebrile. The patient is still requiring pressor support though slightly decreased. Atrial fibrillation with RVR. FiO2 remains to be stable and no worsening reported by the nursing staff. PHYSICAL EXAMINATION: Blood pressure 115/53 with a pulse of 92, temperature 99.3. He is 91% on 50% FiO2. General description is an elderly male lying in bed in no distress. Respiratory system: Unlabored breathing. Decreased breath sounds at the bases. No wheeze. Heart S1, S2. Regular rate and rhythm. Abdomen soft, no tenderness. Extremities: No edema of the feet. LABS: White count is 30,000. Urine showing Lou species. Sputum with MRSA. Blood culture has been negative so far. DIAGNOSTIC IMPRESSION AND PLAN: Patient with a fever and leukocytosis which is likely multifactorial. This patient is status post a right upper and middle lobe lobectomy with acute respiratory failure with concern for pneumonia. Sputum has been MRSA. Urine showing yeast species. The patient is on amiodarone that will contraindicate the use of Diflucan. We will add ( ) and continue with vancomycin and monitor his clinical course closely. Continue supportive care. MMODL / IJN: [id number] /
[2019-06-27 23:05] LABS: Glucose,Whole Blood 141 mg/dL (75-99)
[2019-06-28 00:17] LABS: Glucose,Whole Blood 149 mg/dL (75-99)
[2019-06-28 01:08] LABS: Glucose,Whole Blood 151 mg/dL (75-99)
[2019-06-28 02:04] LABS: Glucose,Whole Blood 173 mg/dL (75-99)
[2019-06-28 03:23] LABS: Glucose,Whole Blood 145 mg/dL (75-99)
[2019-06-28] MEDS: IPRATROPIUM-ALBUTEROL 3 ML NEB IH SCH ×5 (03:36→20:35)
[2019-06-28 04:00] LABS: Glucose,Whole Blood 164 mg/dL (75-99)
[2019-06-28 04:32] LABS: Anisocytosis Slight; HCT 27.4 % (39.0-53.0); HGB 8.3 gm/dL (13.0-17.5); Hypochromasia Moderate; MCH 26.5 pg (25.0-35.0); MCHC 30.4 g/dL (31.0-37.0); MCV 87.3 fL (80.0-100.0); Mean Platelet Volume 8.9; Platelet Count 328 k/uL (150-450); Poikilocytosis Slight; RBC 3.14 m/uL (4.30-5.90); RDW 16.5 % (11.5-15.5)
[2019-06-28 04:35] LABS: Ionized Calcium 4.6 mg/dL (4.5-5.3)
[2019-06-28 04:47] LABS: Albumin 2.3 g/dL (3.5-5.0); Calcium 7.4 mg/dL (8.4-10.2); Magnesium 2.4 mg/dL (1.6-2.3); Potassium 4.9 mmol/L (3.5-5.1); Total Bilirubin 0.7 mg/dL (0.2-1.3); Total Protein 5.5 g/dL (6.3-8.2)
[2019-06-28 04:59] LABS: Glucose,Whole Blood 143 mg/dL (75-99)
[2019-06-28] MEDS ORDERED: VANCOMYCIN TROUGH DUE 1 EACH MISC MISCELLANE ONE (05:00)
[2019-06-28 05:03] LABS: Band Neutrophils % 3 %; Neutrophils % (M) 87 %; Nucleated Red Blood Cells 1 /100 WBC (0-0); Total Cells Counted 100
[2019-06-28 05:04] LABS: Eosinophils # (M) 0.31 k/uL (0-0.7); Lymphocytes # (M) 1.87 k/uL (1.0-4.8); Monocytes # (M) 0.94 k/uL (0-1.0); WBC 31.2 k/uL (3.8-10.6)
[2019-06-28 05:19] LABS: ABG HCO3 24 mmol/L (21-25); ABG Oxygen Saturation 93.8 % (94-97); ABG PCO2 51 mmHg (35-45); ABG PH 7.28 (7.35-7.45); ABG PO2 75 mmHg (83-108); ABG TCO2 25 mmol/L (19-24); Allen Test Performed? Yes
[2019-06-28 06:05] LABS: Glucose,Whole Blood 140 mg/dL (75-99)
[2019-06-28] MEDS: NOREPINEPHRINE 32 MG in SODIUM CHLORIDE 0.9% 218 ML IV SCH (06:12)
[2019-06-28 06:59] LABS: Glucose,Whole Blood 140 mg/dL (75-99)
--- NOTE | 2019-06-28 07:19 | XR ---
EXAMINATION TYPE: XR chest 1V portable DATE OF EXAM: 06/28/2019 COMPARISON: 06/27/2019 HISTORY: Endotracheal tube placement TECHNIQUE: Single frontal view of the chest is obtained. FINDINGS: Endotracheal tube and enteric tube are satisfactorily placed. There is been retraction of the endotracheal tube now terminating 2.1 cm from the radha the level of the aortic arch. Right inte rnal jugular central venous catheter is also again noted terminating in the right atrium. Right-sided thoracostomy tube has been slightly retracted. There remains a layering moderate pleural effusion an d small left pleural effusion with moderate pulmonary vascular congestion and bibasilar airspace dise ase. Cardiomediastinal silhouette is stable. IMPRESSION: 1. Retraction of the endotracheal tube, now appropriately placed. 2. Similar appearing sequela of fluid overload with moderate right and small left pleural effusions a s well as associated bibasilar airspace disease and moderate pulmonary vascular congestion.
[2019-06-28] MEDS ORDERED: VANCOMYCIN IV PER PHARMACY 1 EACH MISC MISCELLANE PRN (07:57)
[2019-06-28 08:05] LABS: Glucose,Whole Blood 134 mg/dL (75-99)
[2019-06-28] MEDS: ATORVASTATIN 40 MG TAB PO SCH (08:55)
[2019-06-28] MEDS: ASPIRIN 81 MG PO SCH (08:55)
[2019-06-28] MEDS: AMIODARONE 200 MG TAB OG-TUBE SCH ×2 (08:55→20:07)
[2019-06-28] MEDS: CHLORHEXIDINE GLUCONATE 15 ML CUP MUCOUS MEM SCH ×2 (08:55→20:07)
[2019-06-28] MEDS: MENTHOL-ZINC OXIDE OINT 113 GM TUBE TOPICAL SCH (08:56)
[2019-06-28] MEDS: METOPROLOL TARTRATE 25 MG TAB PO SCH (08:56)
[2019-06-28] MEDS: HEPARIN SODIUM,PORCINE 5,000 UNIT/ML 1 ML VIAL SQ SCH ×2 (08:56→18:00)
[2019-06-28] MEDS: PANTOPRAZOLE 40 MG/10 ML VIAL IVP SCH (08:56)
[2019-06-28] MEDS: BISACODYL 10 MG SUPP RECTAL SCH (08:56)
[2019-06-28] MEDS ORDERED: VANCOMYCIN 1,750 MG in SODIUM CHLORIDE 0.9% 500 ML 500 ML IVPB ONE (09:00)
[2019-06-28] MEDS: BUDESONIDE 0.5 MG/2 ML NEBU INHALATION SCH ×2 (09:01→20:35)
[2019-06-28] MEDS ORDERED: ALBUMIN HUMAN 5% 500 ML in EMPTY BAG 1 BAG IVPB ONE (09:14)
--- NOTE | 2019-06-28 09:17 | P.PN ---
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 Previous medical history of [place] mediastinoscopy with lymph node biopsy, COPD with preoperative FEV1 82% of predicted, previous tobacco dependence, obstructive sleep apnea without home CPAP use, as needed home oxygen use, coronary artery disease with myocardial infarction and prior stenting, hypertension, insulin-dependent diabetes, chronic kidney disease, and recent laminectomy with subsequent sepsis. POD #7 right VATS thoracoscopy, right thoracotomy, right bi-lobectomy with mediastinal lymph node dissection (right upper and right middle lobe) Postoperative hypotension, unexpected, possible volume loss Postoperative paroxysmal atrial fibrillation, unexpected outcome Postoperative acute blood loss anemia, unexpected outcome Postoperative acute hypoxic respiratory failure requiring intubation and mechanical ventilator support, unexpected, multifactorial Postoperative acute tracheobronchitis versus pneumonia, sputum culture positive for MRSA, unexpected although patient did have MRSA in his bronchial washings after his January 2019 bronchoalveolar lavage The patient is currently laying in bed in the intensive care unit in no acute distress. Remains in sinus rhythm to sinus tach. Currently on IV levo, dopamine, propofol, insulin. T-max in the last 24 hours 99.7F. Sputum culture positive for MRSA, urine culture positive for yeast, remains on IV vancomycin, andulifungin initiated by ID. Ventilator adjustments continue to be made by pulmonology per ABG results, patient continues to breathe over the vent slig htly, FiO2 increased to 65% last night. Tube feeding infusing at goal. There continues to be air leak from the right pleural chest tube. Hemaglobin 7.7 yesterday, transfused 1 unit PRBCs followed by 20 mg lasix. Urine output decreased with no significant diuresis from lasix, dopamine initiated. Sedation holiday attempted yesterday, patient was able to wiggle toes but nothing else. Daughter updated at the bedside yesterday and all questions answered. Objective - Vital Signs Vital signs: Vital Signs Temp 99.6 F 06/28/19 04:00 Pulse 108 H 06/28/19 07:00 Resp 36 H 06/28/19 07:00 BP 96/54 06/28/19 07:00 Pulse Ox 92 L 06/28/19 07:00 Intake & Output 06/27/19 06/28/19 06/28/19 18:59 06:59 18:59 Intake Total 9552.362 7877.383 91 Output Total 590 619 60 Balance 1195.871 850.383 31 Weight 119.9 kg Intake: IV 432 432 36 Pressure bags 72 72 6 Sodium Chloride 0.9% 1, 360 360 30 000 ml @ 30 mls/hr IV . Q24H [facility] Rx#:[id number] Intake, IV Titration 513.871 287.383 Amount Anidulafungin 100 mg In 84 85 Sodium Chloride 0.9% 100 ml @ 84 mls/hr IVPB Q24H [facility] Rx#:[id number] Calcium Gluconate 2 gm In 100 Sodium Chloride 0.9% 100 ml @ 60 mls/hr IVPB ONCE ONE Rx#:[id number] Insulin Regular 100 unit 66.761 82.341 In Sodium Chloride 0.9% 100 ml @ Per Protocol IV .Q0M [facility] Rx#:[id number] Norepinephrine 32 mg In 66.951 49.201 Sodium Chloride 0.9% 218 ml @ 0.05 MCG/KG/MIN 2. 634 mls/hr IV .Q24H [facility] Rx#:[id number] Propofol 1,000 mg In 29.159 70.841 Empty Bag 1 bag @ Titrate IV .Q0M [facility] Rx#: [id number] Vancomycin 1,750 mg In 167 Sodium Chloride 0.9% 500 ml 500 ml @ 167 mls/hr IVPB Q24H [facility] Rx#: [id number] Tube Feeding 440 660 55 Blood Product 310 Rc Pheresis 2 As3 Unit 310 [id number] Other 90 90 Output: Chest Tube Drainage 120 130 Right Lateral Chest 120 130 Urine 470 489 60 Other: Voiding Method Indwelling Catheter Indwelling Catheter ABP, PAP, CO, CI - Last Documented Arterial Blood Pressure 113/49 - Constitutional Constitutional Comment(s): Currently sedated on mechanical ventilation. - Respiratory Details: Lungs sounds diminished bilaterally with coarse breath sounds in the right base, faint inspiratory wheeze heard on the right side. Respirations slightly taccypneic, patient breathing over the vent at 37-38 breaths per minute. Current ventilator settings VC+ mode, FiO2 65%, tidal volume 450, respiratory rate 36, PEEP 5, inspiratory time 0.8. ABGs this morning on those ventilator settings 7.28/51/75/24/93%/-3.0. 8.0 ET tube present, 26 at the lip. Right pleural chest tubes present, connected to continuous wall suction, 100 mL of thin serosanguineous drainage overnight, 250 mL in the last 24 hours, continuous air leak present. - Cardiovascular Details: S1, S2 present. Tachycardic but regular rate and rhythm, sinus tach on telemetry. Palpable peripheral pulses bilaterally. Trace edema present to left upper extremity, right lower extremity. SCDs present. Left radial arterial line, right internal jugular triple-lumen central line present. - Gastrointestinal Gastrointestinal Comment(s): Abdomen soft, nondistended but round. Hypoactive bowel sounds present 4 quadrants. Tube feeding infusing at 55 mL per hour which is goal, minimal residual per nursing. No bowel movement since surgery. - Genitourinary Genitourinary Comment(s): Mckeon present draining clear, yellow urine. Output overnight 30-45 mL per hour. - Integumentary Integumentary Comment(s): Skin is warm and dry, coccyx does have some excoriation per nursing. Right pleural chest tube sites covered with dry intact dressing. Right lateral chest wall incisions well approximated and covered with dry intact dressing. - Neurologic Neurologic Comment(s): Sedated with propofol. Grimaces but does not withdraw to painful stimuli on propofol - Allied health notes Allied health notes reviewed: nursing - Labs CBC & Chem 7: 06/28/19 04:10 06/28/19 04:10 Labs: Abnormal Lab Results - Last 24 Hours (Table) 06/27/19 06/27/19 06/27/19 Range/Units 08:08 09:36 10:23 WBC (3.8-10.6) k/uL RBC (4.30-5.90) m/uL Hgb (13.0-17.5) gm/dL Hct (39.0-53.0) % MCHC (31.0-37.0) g/dL RDW (11.5-15.5) % Neutrophils # (Manual) (1.3-7.7) k/uL Lymphocytes # (Manual) (1.0-4.8) k/uL Nucleated RBCs (0-0) /100 WBC ABG pH (7.35-7.45) ABG pCO2 (35-45) mmHg ABG pO2 (83-108) mmHg ABG Total CO2 (19-24) mmol/L ABG O2 Saturation (94-97) % Sodium (137-145) mmol/L Chloride (98-107) mmol/L BUN (9-20) mg/dL Creatinine (0.66-1.25) mg/dL Glucose (74-99) mg/dL POC Glucose (mg/dL) 167 H 173 H 159 H (75-99) mg/dL Calcium (8.4-10.2) mg/dL Magnesium (1.6-2.3) mg/dL AST (17-59) U/L Alkaline Phosphatase (38-126) U/L Total Protein (6.3-8.2) g/dL Albumin (3.5-5.0) g/dL Crossmatch 06/27/19 06/27/19 06/27/19 Range/Units 10:40 11:06 12:10 WBC (3.8-10.6) k/uL RBC (4.30-5.90) m/uL Hgb (13.0-17.5) gm/dL Hct (39.0-53.0) % MCHC (31.0-37.0) g/dL RDW (11.5-15.5) % Neutrophils # (Manual) (1.3-7.7) k/uL Lymphocytes # (Manual) (1.0-4.8) k/uL Nucleated RBCs (0-0) /100 WBC ABG pH (7.35-7.45) ABG pCO2 (35-45) mmHg ABG pO2 (83-108) mmHg ABG Total CO2 (19-24) mmol/L ABG O2 Saturation (94-97) % Sodium (137-145) mmol/L Chloride (98-107) mmol/L BUN (9-20) mg/dL Creatinine (0.66-1.25) mg/dL Glucose (74-99) mg/dL POC Glucose (mg/dL) 161 H 181 H (75-99) mg/dL Calcium (8.4-10.2) mg/dL Magnesium (1.6-2.3) mg/dL AST (17-59) U/L Alkaline Phosphatase (38-126) U/L Total Protein (6.3-8.2) g/dL Albumin (3.5-5.0) g/dL Crossmatch See Detail 06/27/19 06/27/19 06/27/19 Range/Units 13:13 14:13 15:45 WBC (3.8-10.6) k/uL RBC (4.30-5.90) m/uL Hgb (13.0-17.5) gm/dL Hct (39.0-53.0) % MCHC (31.0-37.0) g/dL RDW (11.5-15.5) % Neutrophils # (Manual) (1.3-7.7) k/uL Lymphocytes # (Manual) (1.0-4.8) k/uL Nucleated RBCs (0-0) /100 WBC ABG pH (7.35-7.45) ABG pCO2 (35-45) mmHg ABG pO2 (83-108) mmHg ABG Total CO2 (19-24) mmol/L ABG O2 Saturation (94-97) % Sodium (137-145) mmol/L Chloride (98-107) mmol/L BUN (9-20) mg/dL Creatinine (0.66-1.25) mg/dL Glucose (74-99) mg/dL POC Glucose (mg/dL) 193 H 178 H 161 H (75-99) mg/dL Calcium (8.4-10.2) mg/dL Magnesium (1.6-2.3) mg/dL AST (17-59) U/L Alkaline Phosphatase (38-126) U/L Total Protein (6.3-8.2) g/dL Albumin (3.5-5.0) g/dL Crossmatch 06/27/19 06/27/19 06/27/19 Range/Units 16:03 16:47 16:48 WBC 30.5 H (3.8-10.6) k/uL RBC 3.12 L (4.30-5.90) m/uL Hgb 8.3 L (13.0-17.5) gm/dL Hct 27.0 L (39.0-53.0) % MCHC 30.6 L (31.0-37.0) g/dL RDW 16.6 H (11.5-15.5) % Neutrophils # (Manual) 28.90 H (1.3-7.7) k/uL Lymphocytes # (Manual) 0.61 L (1.0-4.8) k/uL Nucleated RBCs (0-0) /100 WBC ABG pH 7.29 L (7.35-7.45) ABG pCO2 49 H (35-45) mmHg ABG pO2 78 L (83-108) mmHg ABG Total CO2 25 H (19-24) mmol/L ABG O2 Saturation (94-97) % Sodium (137-145) mmol/L Chloride (98-107) mmol/L BUN (9-20) mg/dL Creatinine (0.66-1.25) mg/dL Glucose (74-99) mg/dL POC Glucose (mg/dL) 174 H (75-99) mg/dL Calcium (8.4-10.2) mg/dL Magnesium (1.6-2.3) mg/dL AST (17-59) U/L Alkaline Phosphatase (38-126) U/L Total Protein (6.3-8.2) g/dL Albumin (3.5-5.0) g/dL Crossmatch 06/27/19 06/27/19 06/27/19 Range/Units 18:05 20:13 21:24 WBC (3.8-10.6) k/uL RBC (4.30-5.90) m/uL Hgb (13.0-17.5) gm/dL Hct (39.0-53.0) % MCHC (31.0-37.0) g/dL RDW (11.5-15.5) % Neutrophils # (Manual) (1.3-7.7) k/uL Lymphocytes # (Manual) (1.0-4.8) k/uL Nucleated RBCs (0-0) /100 WBC ABG pH (7.35-7.45) ABG pCO2 (35-45) mmHg ABG pO2 (83-108) mmHg ABG Total CO2 (19-24) mmol/L ABG O2 Saturation (94-97) % Sodium (137-145) mmol/L Chloride (98-107) mmol/L BUN (9-20) mg/dL Creatinine (0.66-1.25) mg/dL Glucose (74-99) mg/dL POC Glucose (mg/dL) 173 H 180 H 167 H (75-99) mg/dL Calcium (8.4-10.2) mg/dL Magnesium (1.6-2.3) mg/dL AST (17-59) U/L Alkaline Phosphatase (38-126) U/L Total Protein (6.3-8.2) g/dL Albumin (3.5-5.0) g/dL Crossmatch 06/27/19 06/27/19 06/28/19 Range/Units 21:58 23:03 00:15 WBC (3.8-10.6) k/uL RBC (4.30-5.90) m/uL Hgb (13.0-17.5) gm/dL Hct (39.0-53.0) % MCHC (31.0-37.0) g/dL RDW (11.5-15.5) % Neutrophils # (Manual) (1.3-7.7) k/uL Lymphocytes # (Manual) (1.0-4.8) k/uL Nucleated RBCs (0-0) /100 WBC ABG pH (7.35-7.45) ABG pCO2 (35-45) mmHg ABG pO2 (83-108) mmHg ABG Total CO2 (19-24) mmol/L ABG O2 Saturation (94-97) % Sodium (137-145) mmol/L Chloride (98-107) mmol/L BUN (9-20) mg/dL Creatinine (0.66-1.25) mg/dL Glucose (74-99) mg/dL POC Glucose (mg/dL) 163 H 141 H 149 H (75-99) mg/dL Calcium (8.4-10.2) mg/dL Magnesium (1.6-2.3) mg/dL AST (17-59) U/L Alkaline Phosphatase (38-126) U/L Total Protein (6.3-8.2) g/dL Albumin (3.5-5.0) g/dL Crossmatch 06/28/19 06/28/19 06/28/19 Range/Units 01:05 02:03 03:22 WBC (3.8-10.6) k/uL RBC (4.30-5.90) m/uL Hgb (13.0-17.5) gm/dL Hct (39.0-53.0) % MCHC (31.0-37.0) g/dL RDW (11.5-15.5) % Neutrophils # (Manual) (1.3-7.7) k/uL Lymphocytes # (Manual) (1.0-4.8) k/uL Nucleated RBCs (0-0) /100 WBC ABG pH (7.35-7.45) ABG pCO2 (35-45) mmHg ABG pO2 (83-108) mmHg ABG Total CO2 (19-24) mmol/L ABG O2 Saturation (94-97) % Sodium (137-145) mmol/L Chloride (98-107) mmol/L BUN (9-20) mg/dL Creatinine (0.66-1.25) mg/dL Glucose (74-99) mg/dL POC Glucose (mg/dL) 151 H 173 H 145 H (75-99) mg/dL Calcium (8.4-10.2) mg/dL Magnesium (1.6-2.3) mg/dL AST (17-59) U/L Alkaline Phosphatase (38-126) U/L Total Protein (6.3-8.2) g/dL Albumin (3.5-5.0) g/dL Crossmatch 06/28/19 06/28/19 06/28/19 Range/Units 03:58 04:10 04:10 WBC 31.2 H (3.8-10.6) k/uL RBC 3.14 L (4.30-5.90) m/uL Hgb 8.3 L (13.0-17.5) gm/dL Hct 27.4 L (39.0-53.0) % MCHC 30.4 L (31.0-37.0) g/dL RDW 16.5 H (11.5-15.5) % Neutrophils # (Manual) 28.00 H (1.3-7.7) k/uL Lymphocytes # (Manual) (1.0-4.8) k/uL Nucleated RBCs 1 H (0-0) /100 WBC ABG pH (7.35-7.45) ABG pCO2 (35-45) mmHg ABG pO2 (83-108) mmHg ABG Total CO2 (19-24) mmol/L ABG O2 Saturation (94-97) % Sodium 147 H (137-145) mmol/L Chloride 113 H (98-107) mmol/L BUN 68 H (9-20) mg/dL Creatinine 2.37 H (0.66-1.25) mg/dL Glucose 137 H (74-99) mg/dL POC Glucose (mg/dL) 164 H (75-99) mg/dL Calcium 7.4 L (8.4-10.2) mg/dL Magnesium 2.4 H (1.6-2.3) mg/dL AST 100 H (17-59) U/L Alkaline Phosphatase 142 H (38-126) U/L Total Protein 5.5 L (6.3-8.2) g/dL Albumin 2.3 L (3.5-5.0) g/dL Crossmatch 06/28/19 06/28/19 06/28/19 Range/Units 04:58 05:17 06:04 WBC (3.8-10.6) k/uL RBC (4.30-5.90) m/uL Hgb (13.0-17.5) gm/dL Hct (39.0-53.0) % MCHC (31.0-37.0) g/dL RDW (11.5-15.5) % Neutrophils # (Manual) (1.3-7.7) k/uL Lymphocytes # (Manual) (1.0-4.8) k/uL Nucleated RBCs (0-0) /100 WBC ABG pH 7.28 L (7.35-7.45) ABG pCO2 51 H (35-45) mmHg ABG pO2 75 L (83-108) mmHg ABG Total CO2 25 H (19-24) mmol/L ABG O2 Saturation 93.8 L (94-97) % Sodium (137-145) mmol/L Chloride (98-107) mmol/L BUN (9-20) mg/dL Creatinine (0.66-1.25) mg/dL Glucose (74-99) mg/dL POC Glucose (mg/dL) 143 H 140 H (75-99) mg/dL Calcium (8.4-10.2) mg/dL Magnesium (1.6-2.3) mg/dL AST (17-59) U/L Alkaline Phosphatase (38-126) U/L Total Protein (6.3-8.2) g/dL Albumin (3.5-5.0) g/dL Crossmatch 06/28/19 Range/Units 06:57 WBC (3.8-10.6) k/uL RBC (4.30-5.90) m/uL Hgb (13.0-17.5) gm/dL Hct (39.0-53.0) % MCHC (31.0-37.0) g/dL RDW (11.5-15.5) % Neutrophils # (Manual) (1.3-7.7) k/uL Lymphocytes # (Manual) (1.0-4.8) k/uL Nucleated RBCs (0-0) /100 WBC ABG pH (7.35-7.45) ABG pCO2 (35-45) mmHg ABG pO2 (83-108) mmHg ABG Total CO2 (19-24) mmol/L ABG O2 Saturation (94-97) % Sodium (137-145) mmol/L Chloride (98-107) mmol/L BUN (9-20) mg/dL Creatinine (0.66-1.25) mg/dL Glucose (74-99) mg/dL POC Glucose (mg/dL) 140 H (75-99) mg/dL Calcium (8.4-10.2) mg/dL Magnesium (1.6-2.3) mg/dL AST (17-59) U/L Alkaline Phosphatase (38-126) U/L Total Protein (6.3-8.2) g/dL Albumin (3.5-5.0) g/dL Crossmatch Microbiology - Last 24 Hours (Table) 06/23/19 22:20 Blood Culture - Preliminary Blood No Growth after 96 hours 06/26/19 09:00 Urine Culture - Preliminary Urine,Catheterized Yeast species 06/26/19 08:40 Blood Culture - Preliminary Blood No Growth after 24 hours - Imaging and Cardiology Chest x-ray: report reviewed, image reviewed Assessment and Plan Assessment: 1. 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 History of [place] mediastinoscopy with lymph node biopsy 3. COPD with preoperative FEV1 82% of predicted 4. Previous tobacco dependence 5. Obstructive sleep apnea without home CPAP use 6. Home oxygen use as needed 7. Coronary artery disease with previous myocardial infarction and prior stenting 8. Hypertension, currently hypotensive on IV pressors 9. Insulin dependent diabetes 10. Chronic kidney disease 11. MRSA present in bronchial washings from January 2019 bronchoalveolar lavage, treated with antibiotics 12. Recent laminectomy with subsequent sepsis 13. Postoperative paroxysmal atrial fibrillation 14. Postoperative acute blood loss anemia 15. Postoperative acute hypoxic respiratory failure requiring intubation and mechanical ventilator support 16. Postoperative acute tracheobronchitis versus pneumonia, sputum culture positive for MRSA Plan: 1. Continue right pleural chest tubes to continuous wall suction. Monitor for resolution of air leak. Surgical pathology consistent with stage IIIa invasive moderately differentiated keratinizing squamous cell carcinoma. 2. Mechanical ventilator management per pulmonology. Propofol as necessary for sedation while mechanically ventilated. 3. Continue bronchodilators, inhaled steroids per pulmonology 4. Continue levo, wean as tolerated, do not titrate up unless cleared by cardiothoracic surgery. Decrease dopamine to 1.25 mcg/kg/min 5. Will monitor daily labs and x-rays. Electrolyte replacement as necessary 6. GI/DVT prophylaxis 7. Continue IV vancomycin and andulifungin per infectious disease recommendations 8. Continue Lopressor for tachycardia. Continue amiodarone for A. fib prophylaxis. 9. Pain control with current medication regimen. Avoid Toradol, avoid opioids 10. Continue Mckeon for another 24 hours for strict accurate intake and output. 11. Dulcolax suppository daily until bowel movement. 12. Insulin management per primary care service. 13. More recommendations to follow. Time with Patient: Greater than 30
[2019-06-28 09:52] LABS: Glucose,Whole Blood 146 mg/dL (75-99)
[2019-06-28] MEDS ORDERED: FUROSEMIDE 10 MG/ML 4 ML VIAL IV STA (10:41)
[2019-06-28] MEDS ORDERED: METOLAZONE 5 MG TAB PO ONE (10:45)
[2019-06-28] MEDS: LINEZOLID 600 MG in DEXTROSE/WATER 1 300ML.BAG IVPB SCH ×2 (11:29→20:34)
[2019-06-28 11:30] LABS: Glucose,Whole Blood 168 mg/dL (75-99)
--- NOTE | 2019-06-28 12:18 | PN ---
PROGRESS NOTE PULMONARY/CRITICAL CARE PROGRESS NOTE: DATE OF SERVICE: 06/28/2019 Critical care time is 35 minutes. This is an 83-year-old male admitted back on June 21. He underwent a right thoracotomy and bilobectomy involving the right upper lobe/middle lobe. This was done by Dr. Finley for lung cancer. He was previously diagnosed with having squamous cell carcinoma by Dr. Dawson with the electromagnetic navigational bronchoscopy. He was thought to have stage IIB squamous cell carcinoma enhanced bilobectomy. The patient apparently did well in the recovery area, but unfortunately because of mental status changes and impending respiratory failure, the patient was intubated on June 23 and remains on mechanical ventilator. He is currently on the VC plus mode also refer to as pressure regulated volume control. His rate is 36, tidal volume 450, inspiratory time 0.8 seconds, FiO2 65%, PEEP of 5. Blood gases are reasonable with a pO2 of 75, a pCO2 of 51 and a pH is 7.28. Currently, the patient is on dopamine at 2.5 mcg/kg per minute, propofol was at 10 mcg/kg per minute, but is currently off. The patient remains on norepinephrine at 8 mcg/minute, saline IV at 30 mL an hours, insulin at 6 units an hours and Vital high-protein at 55 with a goal of 55 mL an hour. The patient has a stable appearing chest x-ray. He has a patchy infiltrate in the left mid lung and either infiltrate, atelectasis, or effusion on the right side. Chest tubes are noted. The endotracheal tube is a bit low. It should be pulled back about 1 cm. He was doing much better oxygenation-maravilla yesterday later in the day, developed worsening saturations and FiO2 had to be increased to 80%. They have been titrated back down to 65%. I normally would increase the PEEP to reduce the FiO2 further, but I think the air leak that he has from the right chest tube fluid worsened. There is no correlation with the cap and the graphic monitoring of the patient and his actual measured PaCO2. Current vital signs include a temperature 99 degrees, heart rate 112, respiratory rate is 36, blood pressure 101/54 mean 69, saturations are in the low 90s. Appears in no acute distress. HEENT: Examination is grossly unremarkable. There is an orally placed endotracheal tube and NG tube. NECK: Supple, full range of motion. No adenopathy. Neck veins are flat. CARDIOVASCULAR: Examination reveals sinus tachycardia. Heart rate about 110. LUNGS: Reveal coarse bilateral rhonchi. There is some crackles throughout. No wheezes. Breath sounds are more diminished on the right than on the left side. ABDOMEN: Soft, bowel sounds are noted. EXTREMITIES: Intact. Mild edema. SKIN: Without rash. NEUROLOGIC: Examination could not be adequately assessed. The patient's previous sputum Gram stain and cultures from 06/23 are showing methicillin-resistant Staph aureus. The patient is on vancomycin for that. LABS: Reviewed. White count 31.2, hemoglobin 8.3, hematocrit 27.4, platelet count 328,000, sodium 147, potassium 4.9, chloride is 113, CO2 is 24, anion gap is 10. BUN and creatinine were 68 and 2.37. The rest of the labs are reviewed. Calcium 7.4, ionized calcium is normal. Albumin only 2.3. Procalcitonin level was quite elevated at 24.7. Chest x-rays reviewed. Medications are reviewed. ASSESSMENT: 1. Postoperative day #7, status post video-assisted thoracoscopic right thoracotomy with right bilobectomy including the right upper lobe/right middle lobe, as well as mediastinal lymph node dissection. 2. 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 3. Routine postoperative ventilator management. 4. Postoperative hypoxemic respiratory failure, possibly secondary to narcotic-induced hypoventilation with nosocomial pneumonia caused by MRSA, and possible diastolic congestive heart failure. 5. Invasive mildly differentiated squamous cell carcinoma of the right mid lung, diagnosed back in January 2019 via navigational bronchoscopy. 6. Postoperative atrial fibrillation with RVR. 7. Postoperative anemia. 8. Routine postoperative ventilator management. 9. Postoperative subcutaneous emphysema, improved. 10.Methicillin-resistant Staphylococcus aureus tracheobronchitis versus bronchopneumonia, currently on vancomycin. 11.Chronic obstructive pulmonary disease, mild, with an FEV1 that is 82% of predicted. 12.History of laminectomy with decompression at L3-L4, March 2019. 13.Status post mediastinoscopy and lymph node dissection, February 2019. 14.History of type 2 diabetes mellitus with diabetic neuropathy. 15.Benign essential hypertension. 16.History of coronary artery disease with previous myocardial infarction. 17.History of sleep apnea syndrome. 18.History of gastroesophageal reflux disease. PLAN: The patient's vent status was stable in my opinion. He seems to be tolerating pressure regulated volume control well. His gas exchange is reasonable. He is mildly hypercapnic. He remains on dopamine at 2.5 mcg/kg per minute, propofol is currently off. His norepinephrine is running at 8 mcg/minute. He is getting tube feeds with Vital high-protein at 55, which is goal. He is getting insulin 6 units an hour. We will need to switch his 0.9 to D5W so that we can not caused his hyponatremia to get any worse. Additional recommendations and suggestions are forthcoming. Critical care time is 35 minutes. MMODL / IJN: [id number] /
[2019-06-28 12:22] LABS: Glucose,Whole Blood 184 mg/dL (75-99)
[2019-06-28 13:39] LABS: Glucose,Whole Blood 150 mg/dL (75-99)
[2019-06-28 15:14] VITALS: BMI 37.9
[2019-06-28 15:27] LABS: Glucose,Whole Blood 125 mg/dL (75-99)
[2019-06-28] MEDS ORDERED: MAGNESIUM HYDROXIDE 2,400 MG/10 ML CUP PO ONE (15:48)
[2019-06-28 16:13] LABS: ABG Base Excess -6.1 mmol/L; ABG HCO3 22 mmol/L (21-25); ABG Oxygen Saturation 90.9 % (94-97); ABG PCO2 53 mmHg (35-45); ABG PH 7.22 (7.35-7.45); ABG PO2 70 mmHg (83-108); ABG TCO2 23 mmol/L (19-24)
[2019-06-28 16:16] LABS: Allen Test Performed? no
[2019-06-28 16:37] LABS: Glucose,Whole Blood 130 mg/dL (75-99)
[2019-06-28] MEDS: ACETAMINOPHEN TAB 500 MG TAB OG-TUBE PRN ×2 (17:30→23:54)
[2019-06-28] MEDS ORDERED: SODIUM BICARB 8.4% 50 ML SYR (1 MEQ/ML) IV STA ×2 (17:45)
[2019-06-28 17:58] LABS: Glucose,Whole Blood 167 mg/dL (75-99)
[2019-06-28] MEDS: PIPERACILLIN-TAZOBACTAM 3.375 GM in SODIUM CHLORIDE 0.9% 100 ML IVPB SCH ×2 (17:59→23:55)
[2019-06-28] MEDS: CHOLECALCIFEROL 1,000 UNIT TAB PO SCH (18:00)
[2019-06-28] MEDS ORDERED: ANIDULAFUNGIN 100 MG in SODIUM CHLORIDE 0.9% 100 ML IVPB SCH (18:00)
[2019-06-28] MEDS: INSULIN REGULAR 100 UNIT in SODIUM CHLORIDE 0.9% 100 ML IV SCH (18:04)
[2019-06-28] MEDS: DEXTROSE/WATER 1 250ML.BAG with DOPamine DRIP 800 MG IV SCH (18:18)
[2019-06-28 18:56] LABS: Glucose,Whole Blood 179 mg/dL (75-99)
[2019-06-28 18:57] LABS: ABG Base Excess -2.5 mmol/L; ABG HCO3 24 mmol/L (21-25); ABG Oxygen Saturation 92.5 % (94-97); ABG PCO2 46 mmHg (35-45); ABG PH 7.32 (7.35-7.45); ABG PO2 68 mmHg (83-108); ABG TCO2 25 mmol/L (19-24)
[2019-06-28 18:59] LABS: Allen Test Performed? No
[2019-06-28 19:55] LABS: Glucose,Whole Blood 146 mg/dL (75-99)
[2019-06-28] MEDS: SENNOSIDES-DOCUSATE SODIUM 1 EACH TAB PO SCH (20:07)
--- NOTE | 2019-06-28 20:20 | PN ---
PROGRESS NOTE DATE OF SERVICE: 06/28/2019 REASON FOR FOLLOWUP: MRSA pneumonia. INTERVAL HISTORY: The patient did spike a fever of 101.0 Fahrenheit. The patient did require some pressor support. The patient's FiO2 remains to be stable. No significant ( ) per the nursing staff. The patient remains to be intubated on the vent and unable to provide history. PHYSICAL EXAMINATION: Blood pressure is 91/40 with a pulse of 93, temperature 100.3. He is 90% on 35% FiO2. General description is an elderly male lying in bed in no distress. Respiratory system: Unlabored breathing. Decreased breath sounds at the base. No wheeze. Heart S1, S2. Regular rate and rhythm. Abdomen soft, no tenderness. Extremities: No edema of the feet. LABS: Hemoglobin 8.8, white count 31.2, BUN of 68, creatinine is 2.37. DIAGNOSTIC IMPRESSION AND PLAN: 1. Patient with sepsis, source likely pneumonia . Sputum has been MRSA with question of possible aspiration component with worsening of his kidney function. Vancomycin discontinued. IV Zyvox added in addition to Zosyn. Will follow up on the repeat cultures. 2. The patient did have a positive culture with Lou albicans. Is covered with ( ). Diflucan could not be used because the patient is on amiodarone. Overall prognosis remains to be extremely guarded. Monitor his clinical course closely. MMODL / IJN: [id number] /
[2019-06-28 20:59] LABS: Glucose,Whole Blood 142 mg/dL (75-99)
[2019-06-28 22:31] LABS: Glucose,Whole Blood 156 mg/dL (75-99)
[2019-06-28] MEDS: SODIUM CHLORIDE 0.9% 1,000 ML IV SCH (22:56)
[2019-06-28 23:06] LABS: Glucose,Whole Blood 149 mg/dL (75-99)
[2019-06-29 01:04] LABS: Glucose,Whole Blood 120 mg/dL (75-99)
[2019-06-29] MEDS: IPRATROPIUM-ALBUTEROL 3 ML NEB IH SCH ×3 (01:32→08:19)
[2019-06-29] MEDS ORDERED: ALBUMIN HUMAN 5% 250 ML in EMPTY BAG 1 BAG IVPB ONE (01:41)
[2019-06-29] MEDS: HEPARIN SODIUM,PORCINE 5,000 UNIT/ML 1 ML VIAL SQ SCH ×2 (01:57→08:27)
[2019-06-29 02:17] LABS: Glucose,Whole Blood 124 mg/dL (75-99)
[2019-06-29 04:16] LABS: Glucose,Whole Blood 145 mg/dL (75-99)
[2019-06-29 04:35] LABS: Anisocytosis Slight; HCT 26.1 % (39.0-53.0); HGB 7.9 gm/dL (13.0-17.5); Hypochromasia Marked; MCHC 30.5 g/dL (31.0-37.0); MCV 88.7 fL (80.0-100.0); Mean Platelet Volume 9.3; Platelet Count 313 k/uL (150-450); Poikilocytosis Slight; RBC 2.94 m/uL (4.30-5.90); RDW 16.8 % (11.5-15.5); WBC 27.9 k/uL (3.8-10.6)
[2019-06-29 04:39] LABS: Ionized Calcium 4.3 mg/dL (4.5-5.3)
[2019-06-29 04:54] LABS: Albumin 2.5 g/dL (3.5-5.0); Calcium 7.6 mg/dL (8.4-10.2); Magnesium 2.6 mg/dL (1.6-2.3); Total Bilirubin 1.2 mg/dL (0.2-1.3); Total Protein 5.7 g/dL (6.3-8.2)
[2019-06-29 04:59] LABS: Vancomycin,Random 18.4 ug/mL
[2019-06-29 04:59] LABS: Glucose,Whole Blood 163 mg/dL (75-99)
[2019-06-29 05:02] LABS: Band Neutrophils % 1 %; Eosinophils # (M) 0.28 k/uL (0-0.7); Lymphocytes # (M) 3.35 k/uL (1.0-4.8); Monocytes # (M) 0.84 k/uL (0-1.0); Myelocytes # (M) 0.28 k/uL (0); Myelocytes % 1 %; Neutrophils % (M) 82 %; Nucleated Red Blood Cells 0 /100 WBC (0-0); Total Cells Counted 100
[2019-06-29 05:03] LABS: Large Platelets Present; Polychromasia Present
[2019-06-29 05:06] LABS: Potassium 6.1 mmol/L (3.5-5.1)
[2019-06-29] MEDS ORDERED: INSULIN REGULAR 100 UNIT/ML VIAL IV ONE (05:17)
[2019-06-29] MEDS ORDERED: DEXTROSE 10 % IN WATER 250 ML IV STA (05:18)
[2019-06-29] MEDS ORDERED: FUROSEMIDE 10 MG/ML 4 ML VIAL IV STA (05:19)
[2019-06-29] MEDS ORDERED: METOLAZONE 5 MG TAB PO ONE ×2 (05:28→10:41)
[2019-06-29] MEDS: NOREPINEPHRINE 32 MG in SODIUM CHLORIDE 0.9% 218 ML IV SCH (05:29)
[2019-06-29 05:38] LABS: Glucose,Whole Blood 134 mg/dL (75-99)
[2019-06-29 05:49] LABS: ABG Base Excess -9.9 mmol/L; ABG HCO3 18 mmol/L (21-25); ABG Oxygen Saturation 90.4 % (94-97); ABG PCO2 46 mmHg (35-45); ABG PH 7.21 (7.35-7.45); ABG PO2 71 mmHg (83-108); ABG TCO2 20 mmol/L (19-24); Allen Test Performed? Yes
[2019-06-29] MEDS ORDERED: SODIUM BICARB 8.4% 50 ML SYR (1 MEQ/ML) IV STA (06:56)
[2019-06-29] MEDS ORDERED: CALCIUM GLUCONATE 1 GM in SODIUM CHLORIDE 0.9% 100 ML IVPB ONE (07:15)
[2019-06-29] MEDS ORDERED: ALBUMIN HUMAN 5% 250 ML in EMPTY BAG 1 BAG IVPB STA (07:26)
[2019-06-29 07:27] LABS: Glucose,Whole Blood 172 mg/dL (75-99)
--- NOTE | 2019-06-29 07:40 | XR ---
EXAMINATION TYPE: XR chest 1V portable DATE OF EXAM: 06/29/2019 Comparison: 06/28/2019 Clinical History: 83 year-old male tube placement Findings: ET tube is satisfactory. NG tube courses below the diaphragm. Right IJ CVC tip remains in the right a trium. 2 right-sided chest tubes are present. Heart remains enlarged with diffuse interstitial and pa tchy airspace opacities, right greater than left. Moderate right and small left pleural effusion pers ists. Impression: 1. Continued diffuse interstitial and patchy airspace opacities, right greater than left. Correlate f or ongoing pulmonary edema. 2. Continued moderate right and small left pleural effusions with adjacent atelectasis and/or consoli dation.
[2019-06-29] MEDS: BUDESONIDE 0.5 MG/2 ML NEBU INHALATION SCH (08:19)
[2019-06-29 08:21] LABS: Glucose,Whole Blood 171 mg/dL (75-99)
[2019-06-29] MEDS: CHLORHEXIDINE GLUCONATE 15 ML CUP MUCOUS MEM SCH (08:27)
[2019-06-29] MEDS: PANTOPRAZOLE 40 MG/10 ML VIAL IVP SCH (08:27)
[2019-06-29] MEDS: AMIODARONE 200 MG TAB OG-TUBE SCH (08:27)
[2019-06-29] MEDS: BISACODYL 10 MG SUPP RECTAL SCH (08:28)
[2019-06-29] MEDS: ASPIRIN 81 MG PO SCH (08:28)
[2019-06-29] MEDS: PIPERACILLIN-TAZOBACTAM 3.375 GM in SODIUM CHLORIDE 0.9% 100 ML IVPB SCH (08:33)
[2019-06-29] MEDS: LINEZOLID 600 MG in DEXTROSE/WATER 1 300ML.BAG IVPB SCH (08:33)
--- NOTE | 2019-06-29 08:41 | PN ---
PROGRESS NOTE An 83-year-old white male who remains on the ventilator, minimal improvement since yesterday. He is up on his Levophed to 13 mcg/minute. Remains on vancomycin and Diflucan for infection. FiO2 is 65%, temp 99, heart rate 112, respiratory 36, blood pressure 101/54, saturations in the low 90s. No acute distress. Started tachycardic lungs bilateral rhonchi, diminished on the right. Abdomen is soft. Extremities 2+ edema. White count 31.2, hemoglobin 8.31. BUN and creatinine 68 and 2.37. Albumin 2.3. Procalcitonin is 247. Postoperative day 7. 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 Patient apparently is still on the ventilator, unable to wean, is on dopamine, tube feeds, insulin, broad- spectrum antibiotics. PROGNOSIS: Extremely guarded. KASHMIR / JASON: [id number] /
[2019-06-29] MEDS ORDERED: CISATRACURIUM 200 MG in SODIUM CHLORIDE 0.9% 180 ML IV SCH (09:00)
[2019-06-29] MEDS ORDERED: CISATRACURIUM 2 MG/ML 5 ML VIAL IV ONE (09:00)
[2019-06-29] MEDS ORDERED: METOLAZONE 5 MG TAB PO SCH (09:00)
[2019-06-29] MEDS: MENTHOL-ZINC OXIDE OINT 113 GM TUBE TOPICAL SCH (09:21)
[2019-06-29 09:22] LABS: Glucose,Whole Blood 161 mg/dL (75-99)
[2019-06-29 09:54] VITALS: TEMP 98.6
--- NOTE | 2019-06-29 09:57 | P.PN ---
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 Previous medical history of [place] mediastinoscopy with lymph node biopsy, COPD with preoperative FEV1 82% of predicted, previous tobacco dependence, obstructive sleep apnea without home CPAP use, as needed home oxygen use, coronary artery disease with myocardial infarction and prior stenting, hypertension, insulin-dependent diabetes, chronic kidney disease, and recent laminectomy with subsequent sepsis. POD #8 right VATS thoracoscopy, right thoracotomy, right bi-lobectomy with mediastinal lymph node dissection (right upper and right middle lobe) Postoperative hypotension, unexpected, possible volume loss Postoperative paroxysmal atrial fibrillation, unexpected outcome Postoperative acute blood loss anemia, unexpected outcome Postoperative acute hypoxic respiratory failure requiring intubation and mechanical ventilator support, unexpected, multifactorial Postoperative acute tracheobronchitis versus pneumonia, sputum culture positive for MRSA, unexpected although patient did have MRSA in his bronchial washings after his January 2019 bronchoalveolar lavage Postoperative lactic acidosis, metabolic acidosis, unexpected, likely secondary to hypotension Postoperative acute on chronic kidney disease, unexpected, likely secondary to hypotension Postoperative transaminitis, unexpected, likely secondary to hypotension The patient is currently laying in bed in the intensive care unit in critical condition. Remains in sinus rhythm to sinus tach. Currently on IV levo, propofol, insulin. T-max in the last 24 hours 103.1F. Sputum culture positive for MRSA, urine culture positive for yeast, currently on IV Zyvox, Zosyn, anidulafungin initiated by ID. Ventilator adjustments continue to be made by pulmonology per ABG results, patient continues to breathe over the vent slightly, tidal volume increased last night. Tube feeding infusing at goal. There continues to be air leak from the right pleural chest tube. Urine output continues to decrease, dopamine increased last night. Patient has been off propofol for 24 hours, does not follow commands, does move left lower extremity but not to command. Liver enzymes elevated this morning, kidney function continues to worsen. Objective - Vital Signs Vital signs: Vital Signs Temp 99.5 F 06/29/19 04:00 Pulse 89 06/29/19 08:51 Resp 37 H 06/29/19 07:00 BP 104/53 06/29/19 07:00 Pulse Ox 91 L 06/29/19 07:00 Intake & Output 01/02/20 01/03/20 01/03/20 18:59 06:59 18:59 Intake Total 2632.516 2749.352 345.444 Output Total 665 343 10 Balance 5376.636 8033.352 335.444 Weight 119.9 kg 125 kg Intake: IV 1232 1402 286 Albumin 500 250 Albumin Human 5% 250 ml 250 In Empty Bag 1 bag @ 250 mls/hr IVPB ONCE ONE Rx#: [id number] Anidulafungin 100 mg In 100 Sodium Chloride 0.9% 100 ml @ 84 mls/hr IVPB Q24H [facility] Rx#:[id number] Dextrose 10 % in Water 250 250 ml @ 999 mls/hr IV ONCE STA Rx#:[id number] Pressure bags 72 72 6 Sodium Chloride 0.9% 1, 360 330 30 000 ml @ 30 mls/hr IV . Q24H [facility] Rx#:[id number] Zyvox 300 300 zosyn 100 Intake, IV Titration 175.516 142.352 4.444 Amount Insulin Regular 100 unit 52.898 44.878 4.444 In Sodium Chloride 0.9% 100 ml @ Per Protocol IV .Q0M [facility] Rx#:[id number] Norepinephrine 32 mg In 52.003 97.474 Sodium Chloride 0.9% 218 ml @ 0.05 MCG/KG/MIN 2. 634 mls/hr IV .Q24H [facility] Rx#:[id number] Propofol 1,000 mg In 70.615 Empty Bag 1 bag @ Titrate IV .Q0M [facility] Rx#: [id number] Tube Feeding 825 605 55 Other 400 600 Output: Chest Tube Drainage 140 120 Right Lateral Chest 140 120 Urine 525 223 10 Other: Voiding Method Indwelling Catheter Indwelling Catheter ABP, PAP, CO, CI - Last Documented Arterial Blood Pressure 105/42 - Exam Remains critically ill in the intensive care unit - Respiratory Details: Lungs sounds diminished bilaterally with coarse breath sounds in the right base. Respirations slightly taccypneic, patient breathing over the vent at 37-38 breaths per minute. Current ventilator settings VC+ mode, FiO2 65%, tidal volume 550, respiratory rate 36, PEEP 5, inspiratory time 0.7. ABGs this morning on those ventilator settings 7.21/46/71/18/90%/-9.9. 8.0 ET tube presen t, 26 at the lip. Right pleural chest tubes present, connected to continuous wall suction, 120 mL of thin serosanguineous drainage overnight, 300 mL in the last 24 hours, continuous air leak present. - Cardiovascular Details: S1, S2 present. Tachycardic but regular rate and rhythm, sinus tach on telemetry. Palpable peripheral pulses bilaterally. Generalized edema present. SCDs present. Left radial arterial line, right internal jugular triple-lumen c entral line present. - Gastrointestinal Gastrointestinal Comment(s): Abdomen soft, distended. Barely audible bowel sounds present. Tube feeding infusing at 55 mL per hour which is goal. No bowel movement since surgery despite daily suppositories. - Genitourinary Genitourinary Comment(s): Mckeon present draining clear, yellow urine. Output overnight 20-30 mL per hour, down to no output this morning. - Integumentary Integumentary Comment(s): Skin is warm and dry, coccyx does have some excoriation per nursing. Right pleural chest tube sites covered with dry intact dressing. Right lateral chest wall incisions well approximated and covered with dry intact dressing. - Neurologic Neurologic Comment(s): Withdraws to painful stimuli to the left lower extremity. Patient's left lower extremity occasionally moving spontaneously, does not follow commands. Patient has been off sedation for 24 hours. - Allied health notes Allied health notes reviewed: nursing - Labs CBC & Chem 7: 06/29/19 04:15 06/29/19 04:15 Labs: Abnormal Lab Results - Last 24 Hours (Table) 06/28/19 06/28/19 06/28/19 Range/Units 09:51 11:26 12:20 WBC (3.8-10.6) k/uL RBC (4.30-5.90) m/uL Hgb (13.0-17.5) gm/dL Hct (39.0-53.0) % MCHC (31.0-37.0) g/dL RDW (11.5-15.5) % Neutrophils # (Manual) (1.3-7.7) k/uL Myelocytes # (Manual) (0) k/uL ABG pH (7.35-7.45) ABG pCO2 (35-45) mmHg ABG pO2 (83-108) mmHg ABG HCO3 (21-25) mmol/L ABG Total CO2 (19-24) mmol/L ABG O2 Saturation (94-97) % ABG Lactic Acid (0.5-1.6) mmol/L Potassium (3.5-5.1) mmol/L Chloride (98-107) mmol/L Carbon Dioxide (22-30) mmol/L BUN (9-20) mg/dL Creatinine (0.66-1.25) mg/dL Glucose (74-99) mg/dL POC Glucose (mg/dL) 146 H 168 H 184 H (75-99) mg/dL Calcium (8.4-10.2) mg/dL Ionized Calcium Laney (4.5-5.3) mg/dL Magnesium (1.6-2.3) mg/dL AST (17-59) U/L ALT (4-49) U/L Alkaline Phosphatase (38-126) U/L Ammonia (<30) umol/L Total Protein (6.3-8.2) g/dL Albumin (3.5-5.0) g/dL 06/28/19 06/28/19 06/28/19 Range/Units 13:37 15:24 16:11 WBC (3.8-10.6) k/uL RBC (4.30-5.90) m/uL Hgb (13.0-17.5) gm/dL Hct (39.0-53.0) % MCHC (31.0-37.0) g/dL RDW (11.5-15.5) % Neutrophils # (Manual) (1.3-7.7) k/uL Myelocytes # (Manual) (0) k/uL ABG pH 7.22 L (7.35-7.45) ABG pCO2 53 H (35-45) mmHg ABG pO2 70 L (83-108) mmHg ABG HCO3 (21-25) mmol/L ABG Total CO2 (19-24) mmol/L ABG O2 Saturation 90.9 L (94-97) % ABG Lactic Acid (0.5-1.6) mmol/L Potassium (3.5-5.1) mmol/L Chloride (98-107) mmol/L Carbon Dioxide (22-30) mmol/L BUN (9-20) mg/dL Creatinine (0.66-1.25) mg/dL Glucose (74-99) mg/dL POC Glucose (mg/dL) 150 H 125 H (75-99) mg/dL Calcium (8.4-10.2) mg/dL Ionized Calcium Laney (4.5-5.3) mg/dL Magnesium (1.6-2.3) mg/dL AST (17-59) U/L ALT (4-49) U/L Alkaline Phosphatase (38-126) U/L Ammonia (<30) umol/L Total Protein (6.3-8.2) g/dL Albumin (3.5-5.0) g/dL 06/28/19 06/28/19 06/28/19 Range/Units 16:36 17:56 18:54 WBC (3.8-10.6) k/uL RBC (4.30-5.90) m/uL Hgb (13.0-17.5) gm/dL Hct (39.0-53.0) % MCHC (31.0-37.0) g/dL RDW (11.5-15.5) % Neutrophils # (Manual) (1.3-7.7) k/uL Myelocytes # (Manual) (0) k/uL ABG pH 7.32 L (7.35-7.45) ABG pCO2 46 H (35-45) mmHg ABG pO2 68 L (83-108) mmHg ABG HCO3 (21-25) mmol/L ABG Total CO2 25 H (19-24) mmol/L ABG O2 Saturation 92.5 L (94-97) % ABG Lactic Acid (0.5-1.6) mmol/L Potassium (3.5-5.1) mmol/L Chloride (98-107) mmol/L Carbon Dioxide (22-30) mmol/L BUN (9-20) mg/dL Creatinine (0.66-1.25) mg/dL Glucose (74-99) mg/dL POC Glucose (mg/dL) 130 H 167 H (75-99) mg/dL Calcium (8.4-10.2) mg/dL Ionized Calcium Laney (4.5-5.3) mg/dL Magnesium (1.6-2.3) mg/dL AST (17-59) U/L ALT (4-49) U/L Alkaline Phosphatase (38-126) U/L Ammonia (<30) umol/L Total Protein (6.3-8.2) g/dL Albumin (3.5-5.0) g/dL 06/28/19 06/28/19 06/28/19 Range/Units 18:55 19:54 20:58 WBC (3.8-10.6) k/uL RBC (4.30-5.90) m/uL Hgb (13.0-17.5) gm/dL Hct (39.0-53.0) % MCHC (31.0-37.0) g/dL RDW (11.5-15.5) % Neutrophils # (Manual) (1.3-7.7) k/uL Myelocytes # (Manual) (0) k/uL ABG pH (7.35-7.45) ABG pCO2 (35-45) mmHg ABG pO2 (83-108) mmHg ABG HCO3 (21-25) mmol/L ABG Total CO2 (19-24) mmol/L ABG O2 Saturation (94-97) % ABG Lactic Acid (0.5-1.6) mmol/L Potassium (3.5-5.1) mmol/L Chloride (98-107) mmol/L Carbon Dioxide (22-30) mmol/L BUN (9-20) mg/dL Creatinine (0.66-1.25) mg/dL Glucose (74-99) mg/dL POC Glucose (mg/dL) 179 H 146 H 142 H (75-99) mg/dL Calcium (8.4-10.2) mg/dL Ionized Calcium Laney (4.5-5.3) mg/dL Magnesium (1.6-2.3) mg/dL AST (17-59) U/L ALT (4-49) U/L Alkaline Phosphatase (38-126) U/L Ammonia (<30) umol/L Total Protein (6.3-8.2) g/dL Albumin (3.5-5.0) g/dL 06/28/19 06/28/19 06/29/19 Range/Units 22:29 23:04 01:03 WBC (3.8-10.6) k/uL RBC (4.30-5.90) m/uL Hgb (13.0-17.5) gm/dL Hct (39.0-53.0) % MCHC (31.0-37.0) g/dL RDW (11.5-15.5) % Neutrophils # (Manual) (1.3-7.7) k/uL Myelocytes # (Manual) (0) k/uL ABG pH (7.35-7.45) ABG pCO2 (35-45) mmHg ABG pO2 (83-108) mmHg ABG HCO3 (21-25) mmol/L ABG Total CO2 (19-24) mmol/L ABG O2 Saturation (94-97) % ABG Lactic Acid (0.5-1.6) mmol/L Potassium (3.5-5.1) mmol/L Chloride (98-107) mmol/L Carbon Dioxide (22-30) mmol/L BUN (9-20) mg/dL Creatinine (0.66-1.25) mg/dL Glucose (74-99) mg/dL POC Glucose (mg/dL) 156 H 149 H 120 H (75-99) mg/dL Calcium (8.4-10.2) mg/dL Ionized Calcium Laney (4.5-5.3) mg/dL Magnesium (1.6-2.3) mg/dL AST (17-59) U/L ALT (4-49) U/L Alkaline Phosphatase (38-126) U/L Ammonia (<30) umol/L Total Protein (6.3-8.2) g/dL Albumin (3.5-5.0) g/dL 06/29/19 06/29/19 06/29/19 Range/Units 02:15 04:14 04:15 WBC 27.9 H (3.8-10.6) k/uL RBC 2.94 L (4.30-5.90) m/uL Hgb 7.9 L (13.0-17.5) gm/dL Hct 26.1 L (39.0-53.0) % MCHC 30.5 L (31.0-37.0) g/dL RDW 16.8 H (11.5-15.5) % Neutrophils # (Manual) 23.10 H (1.3-7.7) k/uL Myelocytes # (Manual) 0.28 H (0) k/uL ABG pH (7.35-7.45) ABG pCO2 (35-45) mmHg ABG pO2 (83-108) mmHg ABG HCO3 (21-25) mmol/L ABG Total CO2 (19-24) mmol/L ABG O2 Saturation (94-97) % ABG Lactic Acid (0.5-1.6) mmol/L Potassium (3.5-5.1) mmol/L Chloride (98-107) mmol/L Carbon Dioxide (22-30) mmol/L BUN (9-20) mg/dL Creatinine (0.66-1.25) mg/dL Glucose (74-99) mg/dL POC Glucose (mg/dL) 124 H 145 H (75-99) mg/dL Calcium (8.4-10.2) mg/dL Ionized Calcium Laney (4.5-5.3) mg/dL Magnesium (1.6-2.3) mg/dL AST (17-59) U/L ALT (4-49) U/L Alkaline Phosphatase (38-126) U/L Ammonia (<30) umol/L Total Protein (6.3-8.2) g/dL Albumin (3.5-5.0) g/dL 06/29/19 06/29/19 06/29/19 Range/Units 04:15 04:57 05:37 WBC (3.8-10.6) k/uL RBC (4.30-5.90) m/uL Hgb (13.0-17.5) gm/dL Hct (39.0-53.0) % MCHC (31.0-37.0) g/dL RDW (11.5-15.5) % Neutrophils # (Manual) (1.3-7.7) k/uL Myelocytes # (Manual) (0) k/uL ABG pH (7.35-7.45) ABG pCO2 (35-45) mmHg ABG pO2 (83-108) mmHg ABG HCO3 (21-25) mmol/L ABG Total CO2 (19-24) mmol/L ABG O2 Saturation (94-97) % ABG Lactic Acid (0.5-1.6) mmol/L Potassium 6.1 H* (3.5-5.1) mmol/L Chloride 113 H (98-107) mmol/L Carbon Dioxide 18 L (22-30) mmol/L BUN 83 H (9-20) mg/dL Creatinine 3.16 H (0.66-1.25) mg/dL Glucose 144 H (74-99) mg/dL POC Glucose (mg/dL) 163 H 134 H (75-99) mg/dL Calcium 7.6 L (8.4-10.2) mg/dL Ionized Calcium Laney 4.3 L (4.5-5.3) mg/dL Magnesium 2.6 H (1.6-2.3) mg/dL AST 1583 H (17-59) U/L ALT 196 H (4-49) U/L Alkaline Phosphatase 139 H (38-126) U/L Ammonia (<30) umol/L Total Protein 5.7 L (6.3-8.2) g/dL Albumin 2.5 L (3.5-5.0) g/dL 06/29/19 06/29/19 06/29/19 Range/Units 05:45 07:25 08:18 WBC (3.8-10.6) k/uL RBC (4.30-5.90) m/uL Hgb (13.0-17.5) gm/dL Hct (39.0-53.0) % MCHC (31.0-37.0) g/dL RDW (11.5-15.5) % Neutrophils # (Manual) (1.3-7.7) k/uL Myelocytes # (Manual) (0) k/uL ABG pH 7.21 L (7.35-7.45) ABG pCO2 46 H (35-45) mmHg ABG pO2 71 L (83-108) mmHg ABG HCO3 18 L (21-25) mmol/L ABG Total CO2 (19-24) mmol/L ABG O2 Saturation 90.4 L (94-97) % ABG Lactic Acid 4.8 H* (0.5-1.6) mmol/L Potassium (3.5-5.1) mmol/L Chloride (98-107) mmol/L Carbon Dioxide (22-30) mmol/L BUN (9-20) mg/dL Creatinine (0.66-1.25) mg/dL Glucose (74-99) mg/dL POC Glucose (mg/dL) 172 H (75-99) mg/dL Calcium (8.4-10.2) mg/dL Ionized Calcium Laney (4.5-5.3) mg/dL Magnesium (1.6-2.3) mg/dL AST (17-59) U/L ALT (4-49) U/L Alkaline Phosphatase (38-126) U/L Ammonia (<30) umol/L Total Protein (6.3-8.2) g/dL Albumin (3.5-5.0) g/dL 06/29/19 06/29/19 Range/Units 08:18 08:18 WBC (3.8-10.6) k/uL RBC (4.30-5.90) m/uL Hgb (13.0-17.5) gm/dL Hct (39.0-53.0) % MCHC (31.0-37.0) g/dL RDW (11.5-15.5) % Neutrophils # (Manual) (1.3-7.7) k/uL Myelocytes # (Manual) (0) k/uL ABG pH (7.35-7.45) ABG pCO2 (35-45) mmHg ABG pO2 (83-108) mmHg ABG HCO3 (21-25) mmol/L ABG Total CO2 (19-24) mmol/L ABG O2 Saturation (94-97) % ABG Lactic Acid (0.5-1.6) mmol/L Potassium (3.5-5.1) mmol/L Chloride (98-107) mmol/L Carbon Dioxide (22-30) mmol/L BUN (9-20) mg/dL Creatinine (0.66-1.25) mg/dL Glucose (74-99) mg/dL POC Glucose (mg/dL) 171 H (75-99) mg/dL Calcium (8.4-10.2) mg/dL Ionized Calcium Laney (4.5-5.3) mg/dL Magnesium (1.6-2.3) mg/dL AST (17-59) U/L ALT (4-49) U/L Alkaline Phosphatase (38-126) U/L Ammonia 64 H (<30) umol/L Total Protein (6.3-8.2) g/dL Albumin (3.5-5.0) g/dL Microbiology - Last 24 Hours (Table) 06/28/19 12:41 Gram Stain - Preliminary Sputum Sputum Culture - Preliminary 06/23/19 22:20 Blood Culture - Preliminary Blood No Growth after 120 hours 06/28/19 11:40 Urine Culture - Preliminary Urine,Catheterized 06/26/19 09:00 Urine Culture - Final Urine,Catheterized Lou albicans 06/26/19 08:40 Blood Culture - Preliminary Blood No Growth after 48 hours - Imaging and Cardiology Chest x-ray: report reviewed, image reviewed Assessment and Plan Assessment: 1. 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 History of [place] mediastinoscopy with lymph node biopsy 3. COPD with preoperative FEV1 82% of predicted 4. Previous tobacco dependence 5. Obstructive sleep apnea without home CPAP use 6. Home oxygen use as needed 7. Coronary artery disease with previous myocardial infarction and prior stenting 8. Hypertension, currently hypotensive on IV pressors 9. Insulin dependent diabetes 10. Chronic kidney disease 11. MRSA present in bronchial washings from January 2019 bronchoalveolar lavage, treated with antibiotics 12. Recent laminectomy with subsequent sepsis 13. Postoperative paroxysmal atrial fibrillation 14. Postoperative acute blood loss anemia 15. Postoperative acute hypoxic respiratory failure requiring intubation and mechanical ventilator support 16. Postoperative acute tracheobronchitis versus pneumonia, sputum culture positive for MRSA 17. Postoperative lactic acidosis 18. Postoperative acute on chronic kidney disease 19. Postoperative transaminitis Plan: 1. Continue right pleural chest tubes to continuous wall suction. Monitor for resolution of air leak. Surgical pathology consistent with stage IIIa invasive moderately differentiated keratinizing squamous cell carcinoma. 2. Mechanical ventilator management per pulmonology. 3. Continue bronchodilators, inhaled steroids per pulmonology 4. Continue levo, wean as tolerated, dopamine discontinued. 5. Will monitor daily labs and x-rays. Electrolyte replacement as necessary. Insulin and dextrose given for hyperkalemia. Sodium bicarbonate given for acidosis. Repeat lactic acid and ammonia drawn 6. GI/DVT prophylaxis 7. Continue IV Zyvox, Zosyn, and andulifungin per infectious disease recommendations 8. Lopressor discontinued due to hypotension. Continue amiodarone for A. fib prophylaxis. Lipitor discontinued. 9. Pain control with current medication regimen. Avoid Toradol, avoid opioids 10. Continue Mckeon for another 24 hours for strict accurate intake and output. 11. Dulcolax suppository daily until bowel movement. 12. Insulin management per primary care service. 13. Tube feedings stopped. CT of abdomen and pelvis ordered per Dr. Clayton. 14. Nephrology consulted, recommends no more IV fluid boluses, Lasix 80 mg IV push times one, possible dialysis which daughter adamantly states patient would not want. 15. Daughter updated at the bedside, states patient does not want anything more invasive completed, she is leaning towards making the patient a no code and comfort care. Will not escalate care, will abide by patient and daughter's wishes. 16. More recommendations to follow. Time with Patient: Greater than 30
[2019-06-29 09:58] LABS: Calcium 7.7 mg/dL (8.4-10.2)
[2019-06-29 10:09] LABS: Potassium 6.1 mmol/L (3.5-5.1)
[2019-06-29 10:13] LABS: Glucose,Whole Blood 155 mg/dL (75-99)
[2019-06-29] MEDS ORDERED: FUROSEMIDE 10 MG/ML 10 ML VIAL IV STA (10:15)
[2019-06-29] MEDS ORDERED: SODIUM BICARBONATE TAB 650 MG TAB PO SCH (10:15)
--- NOTE | 2019-06-29 10:16 | P.NPCON ---
History of Present Illness - Reason for Consult acute renal failure - History of Present Illness Reason for consultation: Acute kidney injury Patient is a 83-year-old male seen in renal consultation for acute kidney injury. Patient's creatinine as of March 2019 was near 1. He's had multiple hospitalizations since. Patient has history of right upper lobe lung cancer. Patient underwent right thoracotomy with right bilobectomy on June 21. Over the weekend the patient became less responsive and was intubated for airway protection. Patient has been quite hypotensive and is currently maintained on Levophed. His renal function has been worsening with creatinine up to 3.16 today. Urine output is about 5 mL an hour. He is intubated. Currently on 65% FiO2. Patient's potassium was 6.1 this morning. He received insulin IV with dextrose. Patient received IV bicarbonate this morning also. Additionally he was given IV albumin and IV Lasix with no response in urine output. Patient's daughters present at bedside and wishes for conservative measures only. She is refusing any forms of renal replacement therapy. Vital signs: Blood pressure low. Currently on vasopressors. General: The patient appeared well nourished and normally developed. HEENT: Head exam is unremarkable. Neck is without jugular venous distension. LUNGS: Breath sounds decreased. HEART: Rate and Rhythm are regular. First and second heart sounds normal. No murmurs, rubs or gallops. ABDOMEN: Abdominal exam reveals depressed bowel sounds. Distention noted. EXTREMITITES: 1+ edema. Past Medical History Past Medical History: COPD, Diabetes Mellitus, GERD/Reflux, Hypertension, Myocardial Infarction ([place]), Renal Disease, Sleep Apnea/CPAP/BIPAP, Vascular Disorder Additional Past Medical History / Comment(s): NEUROPATHY FEET, decreased kidney function, uses CPAP Last Myocardial Infarction Date:: 2015 History of Any Multi-Drug Resistant Organisms: MRSA Date of last positivie culture/infection: 06/23/19 MDRO Source:: MRSA SPUTUM Past Surgical History: Heart Catheterization, Heart Catheterization With Stent, Tonsillectomy Additional Past Surgical History / Comment(s): EGD, COLONOSCOPY, sinus surg. x3, chest/lung biopsy, LAMINECTOMY Past Anesthesia/Blood Transfusion Reactions: No Reported Reaction Date of Last Stent Placement:: 2015 Smoking Status: Former smoker - Past Family History Father Family Medical History: Cancer, Myocardial Infarction ([place]) Additional Family Medical History / Comment(s): Father had bone cancer. He at the age of 80yrs. Mother Family Medical History: AFIB, Myocardial Infarction ([place]) Additional Family Medical History / Comment(s): Mother when she 82 years old and of a heart attack Medications and Allergies Home Medications Medication Instructions Recorded Confirmed Type Omeprazole [PriLOSEC] 20 mg PO DAILY@0600 06/11/14 06/21/19 History Simvastatin [Zocor] 40 mg PO HS 06/11/14 06/21/19 History Gabapentin [Neurontin] 300 mg PO QID 10/16/17 06/21/19 History Metoprolol Tartrate [Lopressor] 50 mg PO DAILY 10/16/17 06/21/19 History Albuterol Nebulized [Ventolin 2.5 mg INHALATION RT-QID PRN 11/02/18 06/21/19 History Nebulized] Cholecalciferol [Vitamin D3 (25 1,000 unit PO DAILY@1700 11/02/18 06/21/19 History Mcg = 1000 Iu)] INSULIN LISPRO (HumaLOG) [humaLOG] 30 units SQ TID-W/MEALS 11/03/18 06/21/19 History Acetaminophen Tab [Tylenol] 650 mg PO Q6HR PRN tab 04/06/19 06/21/19 Rx Bisacodyl [Dulcolax] 10 mg RECTAL DAILY PRN 04/19/19 06/21/19 History HYDROcodone/APAP 5-325MG [[place] 1 tab PO Q8HR PRN 04/19/19 06/21/19 History 5-325] Magnesium Hydroxide [Milk of 2,400 mg PO DAILY PRN 04/19/19 06/21/19 History Magnesia] Oxymetazoline 0.05% Nasl [place] 2 spray NASAL BID@0800,1700 04/19/19 06/21/19 History [Afrin 0.05% Nasal [place]] Tamsulosin HCl [Flomax] 0.4 mg PO HS 04/19/19 06/21/19 History Furosemide [Lasix] 20 mg PO DAILY 06/15/19 06/21/19 History Aspirin [Adult Low Dose Aspirin EC] 81 mg PO DAILY 06/21/19 06/21/19 History Allergies Allergy/AdvReac Type Severity Reaction Status Date / Time No Known Allergies Allergy Verified 06/21/19 07:20 Physical Exam Vitals: Vital Signs Temp Pulse Resp BP Pulse Ox 06/29/19 09:45 73 36 H 103/46 93 L 06/29/19 09:30 84 36 H 92/40 94 L 06/29/19 09:15 83 36 H 94/41 94 L 06/29/19 09:00 88 24 104/39 94 L 06/29/19 08:51 89 06/29/19 08:45 87 38 H 98/51 96 06/29/19 08:36 89 06/29/19 08:30 89 39 H 96/45 93 L 06/29/19 08:15 93 36 H 111/50 93 L 06/29/19 08:00 98.6 F 95 37 H 116/49 93 L 06/29/19 07:45 100 37 H 121/49 92 L 06/29/19 07:30 105 H 37 H 126/50 92 L 06/29/19 07:15 105 H 36 H 106/46 92 L 06/29/19 07:00 102 H 37 H 104/53 91 L 06/29/19 06:45 103 H 37 H 109/56 91 L 06/29/19 06:30 105 H 36 H 108/56 90 L 06/29/19 06:15 106 H 37 H 122/47 91 L 06/29/19 06:00 107 H 37 H 113/51 91 L 06/29/19 05:45 107 H 36 H 111/51 93 L 06/29/19 05:30 109 H 37 H 110/58 92 L 06/29/19 05:24 107 H 06/29/19 05:15 106 H 39 H 100/68 92 L 06/29/19 05:00 105 H 38 H 86/60 92 L 06/29/19 04:45 102 H 38 H 97/74 93 L 06/29/19 04:30 103 H 37 H 114/45 93 L 06/29/19 04:15 106 H 40 H 123/50 93 L 06/29/19 04:00 99.5 F 107 H 37 H 125/40 93 L 06/29/19 03:45 93 37 H 115/55 93 L 06/29/19 03:30 93 38 H 111/54 93 L 06/29/19 03:15 96 37 H 91/56 93 L 06/29/19 03:00 99.5 F 97 38 H 94/52 93 L 06/29/19 02:45 101 H 38 H 100/67 93 L 06/29/19 02:30 104 H 36 H 89/55 94 L 06/29/19 02:15 107 H 36 H 107/54 93 L 06/29/19 02:00 110 H 35 H 101/68 93 L 06/29/19 01:45 99.5 F 109 H 36 H 90/63 93 L 06/29/19 01:41 112 H 06/29/19 01:33 111 H 06/29/19 01:30 111 H 36 H 88/54 93 L 06/29/19 01:15 110 H 38 H 102/46 92 L 06/29/19 01:00 111 H 38 H 102/68 92 L 06/29/19 00:45 111 H 37 H 104/62 92 L 06/29/19 00:30 112 H 38 H 110/55 92 L 06/29/19 00:15 112 H 37 H 105/60 92 L 06/29/19 00:00 100.3 F H 112 H 37 H 117/66 92 L 06/28/19 23:45 112 H 39 H 116/56 92 L 06/28/19 23:30 112 H 36 H 115/58 92 L 06/28/19 23:15 113 H 38 H 100/62 93 L 06/28/19 23:00 113 H 37 H 104/48 93 L 06/28/19 22:45 113 H 38 H 102/52 93 L 06/28/19 22:30 114 H 36 H 107/55 93 L 06/28/19 22:15 113 H 38 H 107/59 93 L 06/28/19 22:00 114 H 38 H 119/48 93 L 06/28/19 21:45 113 H 39 H 116/55 93 L 06/28/19 21:30 99.6 F 113 H 37 H 108/58 93 L 06/28/19 21:15 113 H 38 H 107/60 93 L 06/28/19 21:00 113 H 36 H 107/53 92 L 06/28/19 20:48 115 H 36 H 06/28/19 20:45 114 H 37 H 112/52 93 L 06/28/19 20:35 113 H 34 H 06/28/19 20:30 113 H 38 H 101/60 92 L 06/28/19 20:15 113 H 38 H 130/52 92 L 06/28/19 20:00 101.6 F H 113 H 38 H 130/66 92 L 06/28/19 19:45 112 H 39 H 135/66 92 L 06/28/19 19:30 120 H 38 H 130/68 92 L 06/28/19 19:00 112 H 38 H 132/63 91 L 06/28/19 18:45 118 H 39 H 124/67 91 L 06/28/19 18:30 112 H 37 H 119/73 91 L 06/28/19 18:15 108 H 38 H 128/68 91 L 06/28/19 18:00 100.4 F H 110 H 37 H 116/60 91 L 06/28/19 17:45 112 H 38 H 108/65 06/28/19 17:30 112 H 38 H 94/57 92 L 06/28/19 17:15 103.1 F H 107 H 38 H 104/51 91 L 06/28/19 17:14 107 H 36 H 06/28/19 17:00 104 H 38 H 97/45 91 L 06/28/19 16:45 104 H 39 H 97/48 91 L 06/28/19 16:30 103 H 39 H 92/47 90 L 06/28/19 16:15 104 H 39 H 85/51 90 L 06/28/19 16:00 101.3 F H 93 41 H 91/40 90 L 06/28/19 15:45 96 39 H 94/47 89 L 06/28/19 15:30 98 39 H 86/49 90 L 06/28/19 15:15 98 39 H 92/45 90 L 06/28/19 15:00 93 36 H 96/42 90 L 06/28/19 14:45 96 39 H 92/47 90 L 06/28/19 14:30 98 38 H 95/47 90 L 06/28/19 14:15 97 38 H 103/46 90 L 06/28/19 14:00 98 39 H 99/50 90 L 06/28/19 13:45 98 37 H 89/45 90 L 06/28/19 13:30 96 35 H 92/48 90 L 06/28/19 13:15 95 53 H 98/49 90 L 06/28/19 13:00 96 37 H 91/43 91 L 06/28/19 12:54 95 06/28/19 12:45 93 37 H 92 L 06/28/19 12:35 93 06/28/19 12:30 92 37 H 90 L 06/28/19 12:15 93 39 H 104/52 91 L 06/28/19 12:00 99.2 F 95 40 H 97/55 93 L 06/28/19 11:45 95 35 H 106/45 94 L 06/28/19 11:30 96 36 H 105/54 94 L 06/28/19 11:15 95 36 H 103/55 94 L 06/28/19 11:00 96 35 H 98/50 94 L 06/28/19 10:45 96 36 H 99/50 94 L 06/28/19 10:30 99 36 H 99/53 94 L 06/28/19 10:15 103 H 38 H 95/52 94 L Intake and Output 06/28/19 06/29/19 06/29/19 22:59 06:59 14:59 Intake Total 7793.642 3180.803 351.504 Output Total 246 237 10 Balance 7611.768 3120.803 341.504 Intake: IV 788 758 286 Albumin 250 Albumin Human 5% 250 ml 250 In Empty Bag 1 bag @ 250 mls/hr IVPB ONCE ONE Rx#: [id number] Anidulafungin 100 mg In 100 Sodium Chloride 0.9% 100 ml @ 84 mls/hr IVPB Q24H [facility] Rx#:[id number] Dextrose 10 % in Water 250 250 ml @ 999 mls/hr IV ONCE STA Rx#:[id number] Pressure bags 48 48 6 Sodium Chloride 0.9% 1, 240 210 30 000 ml @ 30 mls/hr IV . Q24H [facility] Rx#:[id number] Zyvox 300 zosyn 100 Intake, IV Titration 103.428 74.803 10.504 Amount Insulin Regular 100 unit 33.035 31.916 10.504 In Sodium Chloride 0.9% 100 ml @ Per Protocol IV .Q0M [facility] Rx#:[id number] Norepinephrine 32 mg In 70.393 42.887 Sodium Chloride 0.9% 218 ml @ 0.05 MCG/KG/MIN 2. 634 mls/hr IV .Q24H [facility] Rx#:[id number] Tube Feeding 330 440 55 Other 400 400 Output: Chest Tube Drainage 70 120 Right Lateral Chest 70 120 Urine 176 117 10 Other: Voiding Method Indwelling Catheter Indwelling Catheter Weight 119.9 kg 125 kg ABP, PAP, CO, CI - Last 8 Hours Arterial Blood Pressure 53/29 Arterial Blood Pressure 62/32 Arterial Blood Pressure 66/33 Arterial Blood Pressure 74/35 Arterial Blood Pressure 65/34 Arterial Blood Pressure 70/35 Arterial Blood Pressure 84/37 Arterial Blood Pressure 76/35 Arterial Blood Pressure 80/37 Arterial Blood Pressure 91/40 Arterial Blood Pressure 108/42 Arterial Blood Pressure 105/42 Results - Lab Results Most recent lab results ABG pH 7.21 (7.35-7.45) L 06/29/19 05:45 ABG pCO2 46 mmHg (35-45) H 06/29/19 05:45 ABG pO2 71 mmHg (83-108) L 06/29/19 05:45 ABG HCO3 18 mmol/L (21-25) L 06/29/19 05:45 ABG O2 Saturation 90.4 % (94-97) L 06/29/19 05:45 Calcium 7.6 mg/dL (8.4-10.2) L 06/29/19 04:15 Magnesium 2.6 mg/dL (1.6-2.3) H 06/29/19 04:15 06/29/19 04:15 06/29/19 04:15 Assessment and Plan Plan: Assessment: 1. Acute kidney injury secondary to ATN secondary to hypotension. Creatinine 3.16 today. Currently oliguric. Creatinine near and March 2019. Patient has had multiple hospitalizations since then including that of sepsis and may have developed underlying chronic kidney disease. 2. Hyperkalemia secondary to acute kidney injury and metabolic acidosis. 3. Metabolic acidosis secondary to acute kidney injury. 4. Lung cancer status post thoracotomy with bilateral lobectomy on June 21, 2019. 5. Volume overload. 6. Lactic acidosis secondary to hypoperfusion. 7. MRSA in sputum. Vancomycin discontinued. Now on Zyvox. Infectious disease following. 8. Hypotension maintained on Levophed. Plan: Hyperkalemia was medically treated with IV bicarbonate, IV insulin and IV Lasix. Repeat labs pending. Add oral bicarb 1300 mg twice daily. Lasix 80 mg IV once now. Follow-up abdominal CAT scan. Wean vasopressors. Discussed with cardiothoracic team as well as patient's daughter present at bedside. She wishes for conservative measures and no form of renal replacement therapy. Thank you for the consultation. I will continue to follow the patient with you during his hospital stay.
--- NOTE | 2019-06-29 10:32 | PN ---
PROGRESS NOTE PULMONARY/CRITICAL CARE PROGRESS NOTE: DATE OF SERVICE: 06/29/2019. CRITICAL CARE TIME: CRITICAL CARE TIME: 36 minutes This is an 83-year-old male admitted back on June 21. He underwent a right thoracotomy and bilobectomy involving the right upper lobe/right middle lobe. This was done by Dr. Finley for stage IIB lung cancer. He was previously diagnosis with he was previously diagnosed with squamous cell carcinoma by Dr. Dawson the electromagnetic navigational bronchoscopy. Again, he was thought to have stage IIB disease confirmed when Dr. Finley did a mediastinoscopy and lymph node dissection. The patient apparently did well initially in the recovery area, but unfortunately because of mental status changes and respiratory failure, the patient was intubated on 06/23 and remains on the ventilator. Unfortunately, his overall clinical situation in my opinion has gotten worse, not better. Currently, he remains on the VC plus modality or pressure regulated volume control, with a respiratory rate 36, tidal volume 550 FiO2 65%, PEEP of 5, and an inspiratory time of 0.7 seconds. His blood gases show pO2 of 71, pCO2 46 and pH is 7.20. The patient is on saline at 30 mL an hour, norepinephrine at 90 10 mcg/minute, insulin at 6 units an hours, Diprivan is off dopamine is off and tube feeds are on hold. The patient has developed multiorgan system failure, particularly liver at this liver failure and renal failure. His chest x-ray continues to show diffuse bilateral infiltrates, more so on the right than on the left, and probable bilateral pleural effusions. His oxygenation has been borderline at best. He still has a leak from that right-sided chest tube. The patient does have an art line and a central line. Also, his sputum came back positive for methicillin-resistant Staph aureus and he is being treated for that. Current vital signs are reviewed. His temperature is 99.5, heart rate 100, respiratory rate 36, blood pressure 104/53 mean 70. Central venous pressures are 16. Saturations are in the low 90s. He appears tachypneic and dyspneic. Respiratory rate about 36-37 breaths per minute. HEENT: Examination is grossly unremarkable. There is an orally placed endotracheal tube and NG tube. NECK: Supple. Full range of motion. No adenopathy. Neck veins flat. CARDIOVASCULAR: Examination reveals regular rhythm and rate. Heart rate about 100 beats per minute. S1, S2 normal. LUNGS: Reveal coarse diffuse rhonchi. No wheezes or crackles. ABDOMEN: Distended. No bowel sounds. EXTREMITIES: Intact. Mild edema. SKIN: Without rash. NEUROLOGIC: Examination is difficult to assess. Microbiologically, there was Lou in the urine and MRSA in the sputum back from June 23. That is being treated. LAB DATA: Reviewed. His white count 27.9, has been hovering right around 30, hemoglobin 7.9, hematocrit 26.1, platelet count 313,000. Blood gases have been noted already, PO2 os 71, pCO2 of 46 and a pH of 7.20. This is consistent with a combined respiratory and metabolic acidosis. His sodium is 145, potassium 6.1, chloride 113, CO2 is 18, anion gap 14, chloride 113, CO2 is 18, anion gap 14. BUN and creatinine has steadily increased up to 83 and 3.16. Likewise, his calcium is 7.6, ionized calcium is a bit low at 4.3, magnesium 2.6, bilirubin 1.2. AST is up to 1583, ALT 196, alkaline phosphatase 139, ammonia level 64, albumin 2.5. Procalcitonin level is quite elevated at 24.70. Chest x-ray shows a worsening overall pattern of diffuse bilateral infiltrates, more on the right than on the left side. There is also bilateral pleural effusions, more so on the right than on the left. MEDICATIONS: Reviewed. Currently, the patient is on Tylenol, Cordarone, Eraxis, Artificial Tears, aspirin, Dulcolax, Pulmicort, chlorhexidine, vitamin D3, Nimbex recently started, subcu heparin, Duo nebs, Zyvox, Calmoseptine ointment, Narcan, norepinephrine, Zofran, Protonix, Zosyn, propofol, and Senokot. ASSESSMENT: 1. Postoperative day #8, status post video-assisted thoracoscopic right thoracotomy with right bilobectomy including the right upper lobe, right middle lobe, as well as mediastinal lymph node dissection. 2. 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 3. Routine postoperative ventilator management. 4. Postoperative hypoxemic respiratory failure secondary to narcotic-induced hypoventilation, nosocomial pneumonia caused by MRSA, and possible diastolic congestive heart failure. 5. 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 Diagnosed in January 2019 via navigational bronchoscopy. 6. Postoperative atrial fibrillation and RVR. 7. Postoperative anemia. 8. Routine postoperative ventilator management. 9. Postoperative subcutaneous emphysema, improved. 10.Methicillin-resistant Staphylococcus aureus tracheobronchitis versus bronchopneumonia, currently on the Nasalide. 11.Chronic obstructive pulmonary disease, mild, with an FEV1 that is 82% of predicted. 12.History of L3-L4 decompressive laminectomy, March 2019. 13.Status post mediastinoscopy and lymph node dissection, February 2019. 14.History of type 2 diabetes mellitus with diabetic neuropathy. 15.Benign essential hypertension. 16.History of coronary artery disease with previous myocardial infarction. 17.Sleep apnea syndrome. 18.History of gastroesophageal reflux disease. PLAN: I spoke with Dr. Servin, the cardiothoracic surgeon. We are going to start the patient back on propofol. I think I am going to go ahead and paralyzed the patient for a brief period of time. See if we can get better control over his respiratory status. His lactic acid is elevated, and I am concerned about ischemic colitis. The patient will have a CT scan of the abdomen and pelvis. In addition, once sedated and paralyzed, will repeat the blood gases and make appropriate choices there. He remains on norepinephrine between 9 and 10 mcg/minute. He is on insulin drip at 6 units an hour. He is getting 0.9 at 30 mL an hour. Diprivan is off. He will be restarted as mentioned above. Dopamine will stay off. Tube feeds are on hold. His overall prognosis is very guarded. Will continue to follow closely. Nephrology has been consulted. CRITICAL CARE TIME: 36 minutes. KASHMIR / JASON: [id number] /
[2019-06-29] MEDS ORDERED: MORPHINE SULFATE 2 MG/ML SYRINGE IVP ONE (10:44)
[2019-06-29] MEDS ORDERED: DRY MOUTH SPRAY 44.3 SPRAY/44.3 ML SPRAY MUCOUS MEM PRN (10:44)
[2019-06-29] MEDS ORDERED: MORPHINE SULFATE (100 MG/2 ML) 100 MG in SODIUM CHLORIDE 0.9% 100 ML IV SCH (10:45)
--- NOTE | 2019-06-29 11:25 | P.PN ---
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 Remains vent dependent, 65% FiO2, +5 of PEEP. Continues on Levophed drip. Dopamine discontinued. Maintained on Zyvox, Zosyn, anidulafungin as per ID. Currently Afebrile, T-max 103.1, Lactic acid up to 4.8, WBC 27.9. Sputum culture reporting MRSA. Urine output decreasing .Creatinine continues to worsen, 3.25. Hyperkalemic, potassium 6.1, received bicarbonate , D50, regular insulin. T bili 1.2, AST 1583, ALT 196, alk phos 139, ammonia 64. Abdominal CT ordered. ABGs noted.hemoglobin 7.9. Telemetry sinus rhythm .Conservative treatment requested per daughter. Objective - Vital Signs Vital signs: Vital Signs Temp 98.6 F 06/29/19 08:00 Pulse 68 06/29/19 10:00 Resp 36 H 06/29/19 10:00 BP 87/33 06/29/19 10:00 Pulse Ox 93 L 06/29/19 10:00 Intake & Output 06/28/19 06/29/19 06/29/19 18:59 06:59 18:59 Intake Total 2632.516 2749.352 407.291 Output Total 665 343 15 Balance 2141.111 3063.352 392.291 Weight 119.9 kg 125 kg Intake: IV 1232 1402 286 Albumin 500 250 Albumin Human 5% 250 ml 250 In Empty Bag 1 bag @ 250 mls/hr IVPB ONCE ONE Rx#: [id number] Anidulafungin 100 mg In 100 Sodium Chloride 0.9% 100 ml @ 84 mls/hr IVPB [facility]H [facility] Rx#:[id number] Dextrose 10 % in Water 250 250 ml @ 999 mls/hr IV ONCE STA Rx#:[id number] Pressure bags 72 72 6 Sodium Chloride 0.9% 1, 360 330 30 000 ml @ 30 mls/hr IV . [facility] Rx#:[id number] Zyvox 300 300 zosyn 100 Intake, IV Titration 175.516 142.352 36.291 Amount Insulin Regular 100 unit 52.898 44.878 16.059 In Sodium Chloride 0.9% 100 ml @ Per Protocol IV .Q0M [facility] Rx#:[id number] Norepinephrine 32 mg In 52.003 97.474 20.232 Sodium Chloride 0.9% 218 ml @ 0.05 MCG/KG/MIN 2. 634 mls/hr IV .Q24H [facility] Rx#:[id number] Propofol 1,000 mg In 70.615 Empty Bag 1 bag @ Titrate IV .Q0M [facility] Rx#: [id number] Tube Feeding 825 605 55 Other 400 600 30 Output: Chest Tube Drainage 140 120 Right Lateral Chest 140 120 Urine 525 223 15 Other: Voiding Method Indwelling Catheter Indwelling Catheter Indwelling Catheter ABP, PAP, CO, CI - Last Documented Arterial Blood Pressure 51/28 - Exam PHYSICAL EXAM: VITAL SIGNS: As above GENERAL: Pale, Intubated. HEENT: Conjunctivae normal. eyes normal. Oral mucosa dry. NECK: Supple, No JVD. CARDIOVASCULAR: S1, S2 regular. No murmur RESPIRATION: Unlabored, Breath sounds diminished in the bases. Bilateral Rhonchi, Right pleural chest tube present. ABDOMEN: Soft, distended, hypoactive bowel sounds. No guarding. no masses palpable. LEGS: Positive edema. NERVOUS SYSTEM: Unable to assess, intubated. - Labs CBC & Chem 7: 06/29/19 04:15 06/29/19 04:17 Labs: Abnormal Lab Results - Last 24 Hours (Table) 06/28/19 06/28/19 06/28/19 Range/Units 11:26 12:20 13:37 WBC (3.8-10.6) k/uL RBC (4.30-5.90) m/uL Hgb (13.0-17.5) gm/dL Hct (39.0-53.0) % MCHC (31.0-37.0) g/dL RDW (11.5-15.5) % Neutrophils # (Manual) (1.3-7.7) k/uL Myelocytes # (Manual) (0) k/uL ABG pH (7.35-7.45) ABG pCO2 (35-45) mmHg ABG pO2 (83-108) mmHg ABG HCO3 (21-25) mmol/L ABG Total CO2 (19-24) mmol/L ABG O2 Saturation (94-97) % ABG Lactic Acid (0.5-1.6) mmol/L Sodium (137-145) mmol/L Potassium (3.5-5.1) mmol/L Chloride (98-107) mmol/L Carbon Dioxide (22-30) mmol/L BUN (9-20) mg/dL Creatinine (0.66-1.25) mg/dL Glucose (74-99) mg/dL POC Glucose (mg/dL) 168 H 184 H 150 H (75-99) mg/dL Calcium (8.4-10.2) mg/dL Ionized Calcium [place] (4.5-5.3) mg/dL Magnesium (1.6-2.3) mg/dL AST (17-59) U/L ALT (4-49) U/L Alkaline Phosphatase (38-126) U/L Ammonia (<30) umol/L Total Protein (6.3-8.2) g/dL Albumin (3.5-5.0) g/dL 06/28/19 06/28/19 06/28/19 Range/Units 15:24 16:11 16:36 WBC (3.8-10.6) k/uL RBC (4.30-5.90) m/uL Hgb (13.0-17.5) gm/dL Hct (39.0-53.0) % MCHC (31.0-37.0) g/dL RDW (11.5-15.5) % Neutrophils # (Manual) (1.3-7.7) k/uL Myelocytes # (Manual) (0) k/uL ABG pH 7.22 L (7.35-7.45) ABG pCO2 53 H (35-45) mmHg ABG pO2 70 L (83-108) mmHg ABG HCO3 (21-25) mmol/L ABG Total CO2 (19-24) mmol/L ABG O2 Saturation 90.9 L (94-97) % ABG Lactic Acid (0.5-1.6) mmol/L Sodium (137-145) mmol/L Potassium (3.5-5.1) mmol/L Chloride (98-107) mmol/L Carbon Dioxide (22-30) mmol/L BUN (9-20) mg/dL Creatinine (0.66-1.25) mg/dL Glucose (74-99) mg/dL POC Glucose (mg/dL) 125 H 130 H (75-99) mg/dL Calcium (8.4-10.2) mg/dL Ionized Calcium [place] (4.5-5.3) mg/dL Magnesium (1.6-2.3) mg/dL AST (17-59) U/L ALT (4-49) U/L Alkaline Phosphatase (38-126) U/L Ammonia (<30) umol/L Total Protein (6.3-8.2) g/dL Albumin (3.5-5.0) g/dL 06/28/19 06/28/19 06/28/19 Range/Units 17:56 18:54 18:55 WBC (3.8-10.6) k/uL RBC (4.30-5.90) m/uL Hgb (13.0-17.5) gm/dL Hct (39.0-53.0) % MCHC (31.0-37.0) g/dL RDW (11.5-15.5) % Neutrophils # (Manual) (1.3-7.7) k/uL Myelocytes # (Manual) (0) k/uL ABG pH 7.32 L (7.35-7.45) ABG pCO2 46 H (35-45) mmHg ABG pO2 68 L (83-108) mmHg ABG HCO3 (21-25) mmol/L ABG Total CO2 25 H (19-24) mmol/L ABG O2 Saturation 92.5 L (94-97) % ABG Lactic Acid (0.5-1.6) mmol/L Sodium (137-145) mmol/L Potassium (3.5-5.1) mmol/L Chloride (98-107) mmol/L Carbon Dioxide (22-30) mmol/L BUN (9-20) mg/dL Creatinine (0.66-1.25) mg/dL Glucose (74-99) mg/dL POC Glucose (mg/dL) 167 H 179 H (75-99) mg/dL Calcium (8.4-10.2) mg/dL Ionized Calcium [place] (4.5-5.3) mg/dL Magnesium (1.6-2.3) mg/dL AST (17-59) U/L ALT (4-49) U/L Alkaline Phosphatase (38-126) U/L Ammonia (<30) umol/L Total Protein (6.3-8.2) g/dL Albumin (3.5-5.0) g/dL 06/28/19 06/28/19 06/28/19 Range/Units 19:54 20:58 22:29 WBC (3.8-10.6) k/uL RBC (4.30-5.90) m/uL Hgb (13.0-17.5) gm/dL Hct (39.0-53.0) % MCHC (31.0-37.0) g/dL RDW (11.5-15.5) % Neutrophils # (Manual) (1.3-7.7) k/uL Myelocytes # (Manual) (0) k/uL ABG pH (7.35-7.45) ABG pCO2 (35-45) mmHg ABG pO2 (83-108) mmHg ABG HCO3 (21-25) mmol/L ABG Total CO2 (19-24) mmol/L ABG O2 Saturation (94-97) % ABG Lactic Acid (0.5-1.6) mmol/L Sodium (137-145) mmol/L Potassium (3.5-5.1) mmol/L Chloride (98-107) mmol/L Carbon Dioxide (22-30) mmol/L BUN (9-20) mg/dL Creatinine (0.66-1.25) mg/dL Glucose (74-99) mg/dL POC Glucose (mg/dL) 146 H 142 H 156 H (75-99) mg/dL Calcium (8.4-10.2) mg/dL Ionized Calcium [place] (4.5-5.3) mg/dL Magnesium (1.6-2.3) mg/dL AST (17-59) U/L ALT (4-49) U/L Alkaline Phosphatase (38-126) U/L Ammonia (<30) umol/L Total Protein (6.3-8.2) g/dL Albumin (3.5-5.0) g/dL 06/28/19 06/29/19 06/29/19 Range/Units 23:04 01:03 02:15 WBC (3.8-10.6) k/uL RBC (4.30-5.90) m/uL Hgb (13.0-17.5) gm/dL Hct (39.0-53.0) % MCHC (31.0-37.0) g/dL RDW (11.5-15.5) % Neutrophils # (Manual) (1.3-7.7) k/uL Myelocytes # (Manual) (0) k/uL ABG pH (7.35-7.45) ABG pCO2 (35-45) mmHg ABG pO2 (83-108) mmHg ABG HCO3 (21-25) mmol/L ABG Total CO2 (19-24) mmol/L ABG O2 Saturation (94-97) % ABG Lactic Acid (0.5-1.6) mmol/L Sodium (137-145) mmol/L Potassium (3.5-5.1) mmol/L Chloride (98-107) mmol/L Carbon Dioxide (22-30) mmol/L BUN (9-20) mg/dL Creatinine (0.66-1.25) mg/dL Glucose (74-99) mg/dL POC Glucose (mg/dL) 149 H 120 H 124 H (75-99) mg/dL Calcium (8.4-10.2) mg/dL Ionized Calcium [place] (4.5-5.3) mg/dL Magnesium (1.6-2.3) mg/dL AST (17-59) U/L ALT (4-49) U/L Alkaline Phosphatase (38-126) U/L Ammonia (<30) umol/L Total Protein (6.3-8.2) g/dL Albumin (3.5-5.0) g/dL 06/29/19 06/29/19 06/29/19 Range/Units 04:14 04:15 04:15 WBC 27.9 H (3.8-10.6) k/uL RBC 2.94 L (4.30-5.90) m/uL Hgb 7.9 L (13.0-17.5) gm/dL Hct 26.1 L (39.0-53.0) % MCHC 30.5 L (31.0-37.0) g/dL RDW 16.8 H (11.5-15.5) % Neutrophils # (Manual) 23.10 H (1.3-7.7) k/uL Myelocytes # (Manual) 0.28 H (0) k/uL ABG pH (7.35-7.45) ABG pCO2 (35-45) mmHg ABG pO2 (83-108) mmHg ABG HCO3 (21-25) mmol/L ABG Total CO2 (19-24) mmol/L ABG O2 Saturation (94-97) % ABG Lactic Acid (0.5-1.6) mmol/L Sodium (137-145) mmol/L Potassium 6.1 H* (3.5-5.1) mmol/L Chloride 113 H (98-107) mmol/L Carbon Dioxide 18 L (22-30) mmol/L BUN 83 H (9-20) mg/dL Creatinine 3.16 H (0.66-1.25) mg/dL Glucose 144 H (74-99) mg/dL POC Glucose (mg/dL) 145 H (75-99) mg/dL Calcium 7.6 L (8.4-10.2) mg/dL Ionized Calcium [place] 4.3 L (4.5-5.3) mg/dL Magnesium 2.6 H (1.6-2.3) mg/dL AST 1583 H (17-59) U/L ALT 196 H (4-49) U/L Alkaline Phosphatase 139 H (38-126) U/L Ammonia (<30) umol/L Total Protein 5.7 L (6.3-8.2) g/dL Albumin 2.5 L (3.5-5.0) g/dL 06/29/19 06/29/19 06/29/19 Range/Units 04:17 04:57 05:37 WBC (3.8-10.6) k/uL RBC (4.30-5.90) m/uL Hgb (13.0-17.5) gm/dL Hct (39.0-53.0) % MCHC (31.0-37.0) g/dL RDW (11.5-15.5) % Neutrophils # (Manual) (1.3-7.7) k/uL Myelocytes # (Manual) (0) k/uL ABG pH (7.35-7.45) ABG pCO2 (35-45) mmHg ABG pO2 (83-108) mmHg ABG HCO3 (21-25) mmol/L ABG Total CO2 (19-24) mmol/L ABG O2 Saturation (94-97) % ABG Lactic Acid (0.5-1.6) mmol/L Sodium 146 H (137-145) mmol/L Potassium 6.1 H* (3.5-5.1) mmol/L Chloride 113 H (98-107) mmol/L Carbon Dioxide 18 L (22-30) mmol/L BUN 86 H (9-20) mg/dL Creatinine 3.25 H (0.66-1.25) mg/dL Glucose 148 H (74-99) mg/dL POC Glucose (mg/dL) 163 H 134 H (75-99) mg/dL Calcium 7.7 L (8.4-10.2) mg/dL Ionized Calcium [place] (4.5-5.3) mg/dL Magnesium (1.6-2.3) mg/dL AST (17-59) U/L ALT (4-49) U/L Alkaline Phosphatase (38-126) U/L Ammonia (<30) umol/L Total Protein (6.3-8.2) g/dL Albumin (3.5-5.0) g/dL 06/29/19 06/29/19 06/29/19 Range/Units 05:45 07:25 08:18 WBC (3.8-10.6) k/uL RBC (4.30-5.90) m/uL Hgb (13.0-17.5) gm/dL Hct (39.0-53.0) % MCHC (31.0-37.0) g/dL RDW (11.5-15.5) % Neutrophils # (Manual) (1.3-7.7) k/uL Myelocytes # (Manual) (0) k/uL ABG pH 7.21 L (7.35-7.45) ABG pCO2 46 H (35-45) mmHg ABG pO2 71 L (83-108) mmHg ABG HCO3 18 L (21-25) mmol/L ABG Total CO2 (19-24) mmol/L ABG O2 Saturation 90.4 L (94-97) % ABG Lactic Acid 4.8 H* (0.5-1.6) mmol/L Sodium (137-145) mmol/L Potassium (3.5-5.1) mmol/L Chloride (98-107) mmol/L Carbon Dioxide (22-30) mmol/L BUN (9-20) mg/dL Creatinine (0.66-1.25) mg/dL Glucose (74-99) mg/dL POC Glucose (mg/dL) 172 H (75-99) mg/dL Calcium (8.4-10.2) mg/dL Ionized Calcium [place] (4.5-5.3) mg/dL Magnesium (1.6-2.3) mg/dL AST (17-59) U/L ALT (4-49) U/L Alkaline Phosphatase (38-126) U/L Ammonia (<30) umol/L Total Protein (6.3-8.2) g/dL Albumin (3.5-5.0) g/dL 06/29/19 06/29/19 06/29/19 Range/Units 08:18 08:18 09:19 WBC (3.8-10.6) k/uL RBC (4.30-5.90) m/uL Hgb (13.0-17.5) gm/dL Hct (39.0-53.0) % MCHC (31.0-37.0) g/dL RDW (11.5-15.5) % Neutrophils # (Manual) (1.3-7.7) k/uL Myelocytes # (Manual) (0) k/uL ABG pH (7.35-7.45) ABG pCO2 (35-45) mmHg ABG pO2 (83-108) mmHg ABG HCO3 (21-25) mmol/L ABG Total CO2 (19-24) mmol/L ABG O2 Saturation (94-97) % ABG Lactic Acid (0.5-1.6) mmol/L Sodium (137-145) mmol/L Potassium (3.5-5.1) mmol/L Chloride (98-107) mmol/L Carbon Dioxide (22-30) mmol/L BUN (9-20) mg/dL Creatinine (0.66-1.25) mg/dL Glucose (74-99) mg/dL POC Glucose (mg/dL) 171 H 161 H (75-99) mg/dL Calcium (8.4-10.2) mg/dL Ionized Calcium [place] (4.5-5.3) mg/dL Magnesium (1.6-2.3) mg/dL AST (17-59) U/L ALT (4-49) U/L Alkaline Phosphatase (38-126) U/L Ammonia 64 H (<30) umol/L Total Protein (6.3-8.2) g/dL Albumin (3.5-5.0) g/dL 06/29/19 Range/Units 10:11 WBC (3.8-10.6) k/uL RBC (4.30-5.90) m/uL Hgb (13.0-17.5) gm/dL Hct (39.0-53.0) % MCHC (31.0-37.0) g/dL RDW (11.5-15.5) % Neutrophils # (Manual) (1.3-7.7) k/uL Myelocytes # (Manual) (0) k/uL ABG pH (7.35-7.45) ABG pCO2 (35-45) mmHg ABG pO2 (83-108) mmHg ABG HCO3 (21-25) mmol/L ABG Total CO2 (19-24) mmol/L ABG O2 Saturation (94-97) % ABG Lactic Acid (0.5-1.6) mmol/L Sodium (137-145) mmol/L Potassium (3.5-5.1) mmol/L Chloride (98-107) mmol/L Carbon Dioxide (22-30) mmol/L BUN (9-20) mg/dL Creatinine (0.66-1.25) mg/dL Glucose (74-99) mg/dL POC Glucose (mg/dL) 155 H (75-99) mg/dL Calcium (8.4-10.2) mg/dL Ionized Calcium [place] (4.5-5.3) mg/dL Magnesium (1.6-2.3) mg/dL AST (17-59) U/L ALT (4-49) U/L Alkaline Phosphatase (38-126) U/L Ammonia (<30) umol/L Total Protein (6.3-8.2) g/dL Albumin (3.5-5.0) g/dL Microbiology - Last 24 Hours (Table) 06/28/19 12:41 Gram Stain - Preliminary Sputum Sputum Culture - Preliminary 06/23/19 22:20 Blood Culture - Preliminary Blood No Growth after 120 hours 06/28/19 11:40 Urine Culture - Preliminary Urine,Catheterized 06/26/19 09:00 Urine Culture - Final Urine,Catheterized Lou albicans 06/26/19 08:40 Blood Culture - Preliminary Blood No Growth after 48 hours Assessment and Plan Assessment: Status post thoracotomy and bilobectomy of right upper and middle lobe secondary to squamous cell CA, stage IIIA Acute hypoxic respiratory failure, mechanical ventilator-dependent secondary to the above as well as MRSA pneumonia Hypotension, pressor dependent Acute renal failure secondary to ATN secondary to hypotension Chronic kidney disease, stageIV Acute blood loss anemia, postoperative and of chronic disease Hyperkalemia secondary to the above Metabolic acidosis secondary to acute renal failure Lactic acidosis COPD Elevated LFTs, postoperative transaminitis ,abdominal CT pending Obstructive sleep apnea Diabetes mellitus II Gastroesophageal reflux disease History of essential hypertension Prior nicotine dependence CT, history of MA, stenting Paroxysmal atrial fibrillation, with operative Plan: Continue current medication regime ,monitoring and symptomatic treatment. Maintain supportive care. Daughter declining renal replacement, aggressive measures, requesting conservative care. Staff reports Daughter has called in f amily members and discussing proceeding with comfort care once everyone arrives. Prognosis guarded given multiple complex medical issues. Further recommendations to follow. The impression and plan of care has been dictated as directed. : I performed a history and examination of this patient, discussed the same with the dictator. I agree with the dictator's note ,documented as a scribe. Any additional findings or plans will be noted.
[2019-06-29 11:37] LABS: Calcium 7.6 mg/dL (8.4-10.2); Potassium 5.7 mmol/L (3.5-5.1)
[2019-06-29] MEDS ORDERED: ARTIFICIAL TEARS-HYPROMELLOSE DROPS 15 ML BTL BOTH EYES SCH (12:00)
[2019-06-29 12:13] VITALS: BP 110/49; PULSE 0; RESP 0
== END 2019-06-29 12:59 | disposition expired | DRG 163 ==
LOC: 2ORMAIN 05:44 → 2SICU 13:15
PROVIDERS: ADMIT Thoracic Surgery (Cardiothoracic Vascular Surgery); ATTEND Thoracic Surgery (Cardiothoracic Vascular Surgery)
PROC: 07B74ZZ Excision of Thorax Lymphatic, Percutaneous Endoscopic Approach (ICD-10-PCS; principal; 2019-06-21 07:30)
PROC: 0BTC0ZZ Resection of Right Upper Lung Lobe, Open Approach (ICD-10-PCS; principal; 2019-06-21 07:30)
PROC: 8E0W8CZ Robotic Assisted Procedure of Trunk Region, Via Natural or Artificial Opening Endoscopic (ICD-10-PCS; principal; 2019-06-21 07:30)
PROC: 05HD33Z Insertion of Infusion Device into Right Cephalic Vein, Percutaneous Approach (ICD-10-PCS; 2019-06-22)
PROC: 5A09457 Assistance with Respiratory Ventilation, 24-96 Consecutive Hours, Continuous Positive Airway Pressure (ICD-10-PCS; 2019-06-23)
PROC: 02H633Z Insertion of Infusion Device into Right Atrium, Percutaneous Approach (ICD-10-PCS; 2019-06-24)
PROC: 5A1945Z Respiratory Ventilation, 24-96 Consecutive Hours (ICD-10-PCS; 2019-06-24)
PROC: 0BH18EZ Insertion of Endotracheal Airway into Trachea, Via Natural or Artificial Opening Endoscopic (ICD-10-PCS; 2019-06-24)
PROC: 30233N1 Transfusion of Nonautologous Red Blood Cells into Peripheral Vein, Percutaneous Approach (ICD-10-PCS; 2019-06-27)
PROC: 3E0336Z Introduction of Nutritional Substance into Peripheral Vein, Percutaneous Approach (ICD-10-PCS; 2019-06-27)
DX: C34.11 Malignant neoplasm of upper lobe, right bronchus or lung (principal); J15.212 Pneumonia due to Methicillin resistant Staphylococcus aureus; N17.0 Acute kidney failure with tubular necrosis; A41.9 Sepsis, unspecified organism; G93.41 Metabolic encephalopathy; J96.01 Acute respiratory failure with hypoxia; D62 Acute posthemorrhagic anemia; E87.4 Mixed disorder of acid-base balance; I13.0 Hypertensive heart and chronic kidney disease with heart failure and stage 1 through stage 4 chronic kidney disease, or unspecified chronic kidney disease; I48.20 Chronic atrial fibrillation, unspecified; I50.32 Chronic diastolic (congestive) heart failure; J44.0 Chronic obstructive pulmonary disease with (acute) lower respiratory infection; J93.82 Other air leak; J98.11 Atelectasis; K55.9 Vascular disorder of intestine, unspecified; E11.22 Type 2 diabetes mellitus with diabetic chronic kidney disease; E11.40 Type 2 diabetes mellitus with diabetic neuropathy, unspecified; E66.9 Obesity, unspecified; E83.42 Hypomagnesemia; E87.5 Hyperkalemia; G47.33 Obstructive sleep apnea (adult) (pediatric); I25.10 Atherosclerotic heart disease of native coronary artery without angina pectoris; Z51.5 Encounter for palliative care; I25.2 Old myocardial infarction; I48.0 Paroxysmal atrial fibrillation; Y83.8 Other surgical procedures as the cause of abnormal reaction of the patient, or of later complication, without mention of misadventure at the time of the procedure; K21.9 Gastro-esophageal reflux disease without esophagitis; K72.90 Hepatic failure, unspecified without coma; Z99.89 Dependence on other enabling machines and devices; Z68.36 Body mass index [BMI] 36.0-36.9, adult; Z79.4 Long term (current) use of insulin; Z79.82 Long term (current) use of aspirin; Z79.899 Other long term (current) drug therapy; Z82.49 Family history of ischemic heart disease and other diseases of the circulatory system; Z87.891 Personal history of nicotine dependence; Z95.5 Presence of coronary angioplasty implant and graft; Z99.81 Dependence on supplemental oxygen; N18.3 Chronic kidney disease, stage 3 (moderate); T40.605A Adverse effect of unspecified narcotics, initial encounter; R57.1 Hypovolemic shock; J98.2 Interstitial emphysema
CPT/HCPCS: 36410; 36600; 71045; 76937; 80048; 80053; 80162; 80202; 82140; 82330; 82533; 82805; 83605; 83735; 84145; 84484; 85025; 85027; 85610; 86850; 86870; 86880; 86900; 86901; 86920; 87040; 87070; 87077; 87086; 87186; 87205; 88307; 88309; 88313; 88331; 88332; 93306; 94002; 94003; 94640; 94660; 94667; 94760; 94770